=== PATIENT | male | born 1965 | race Caucasian/White ===

== ENCOUNTER → 2017-11-11 10:48 | Outpatient (CLI) | payer SELFPAY ==
--- NOTE | 2017-11-11 11:06 | MRI_ITS ---
STUDY: MRI ABDOMEN WITH AND WITHOUT CONTRAST REASON FOR EXAM: Male, 52 years old. Abnormal liver enzymes. No acute complaints otherwise. TECHNIQUE: Standardized fat and water weighted pulse sequences were obtained in all 3 orthogonal planes post contrast administration. 10 ml of Gadavist contrast material was administered intravenously for the contrast portion of the examination. COMPARISON: None. FINDINGS: Hepatomegaly, craniocaudal right liver 24 cm. Generalized severe hepatic steatosis. There is diffuse signal dropout throughout the liver on opposed phase imaging. Unremarkable gallbladder, intrahepatic biliary tree and common bile duct. The pancreas, spleen, bilateral adrenal glands, bilateral kidneys, likely systems and proximal ureters, retroperitoneum, vasculature, stomach, and evaluated portions of small and large bowel exhibit no acute abnormalities. There are a a few small nonenhancing cysts of each kidney, the largest on the right measuring 12 mm, the largest on the left measuring 7 mm. There are no abnormally enhancing lesions of the liver. Unremarkable thoracolumbar spine. MRI/MRI Abd WITH and W/O Contrast IMPRESSION: Hepatic steatosis with hepatomegaly. Electronically Signed: Wan Thorpe, at 18:30 EDT Tel , Service support ,
== END ==
PROVIDERS: Family Provider Internal Medicine; PCP Internal Medicine; Visit Provider Internal Medicine
DX: R79.89 Other specified abnormal findings of blood chemistry (principal); R88.8 Abnormal findings in other body fluids and substances
CPT/HCPCS: 74183; A9585; A4216

== ENCOUNTER 2020-06-04 14:50 | Emergency (ER) | payer BC, SELFPAY ==
[2020-06-04 14:53] VITALS: BP 171/93; PULSE 87; RESP 18; TEMP 37.2; O2SAT 99; BMI 26.7
--- NOTE | 2020-06-04 15:12 | CT_ITS ---
STUDY: CT ABDOMEN AND PELVIS WITHOUT CONTRAST REASON FOR EXAM: Male, 54 years old. LLQ PAIN SINCE SATURDAY, LLQ RADIATING TO LT FLANK, MICROSCOPIC HEMATURIA, HTN, HX-HERNADEZ RADIATION DOSAGE (If Supplied By Facility): CTDIvol = ( 9.46 ) mGy, DLP = ( 477.49 ) mGycm TECHNIQUE: Transaxial images were obtained from the dome of the diaphragm to the symphysis pubis without oral contrast, and without intravenous contrast. Sagittal and coronal images were reconstructed. Individualized dose optimization techniques were used for this CT. COMPARISON: MRI dated 11/11/2017 FINDINGS: The visualized lung bases are unremarkable. The visualized portions of the heart are within normal limits. The lack of intravenous contrast limits evaluation of solid visceral organs. There is decreased attenuation of the liver consistent with steatosis. There is hepatomegaly. There is a gallstone within the gallbladder. Normal spleen. Normal pancreas. Normal bilateral adrenal glands. There is a nonobstructing 3 mm right renal calculus. There is left hydroureteronephrosis secondary to a 3.3 mm calculus within the mid ureter. There is a nonobstructing 4 mm calculus within the upper pole of the left kidney. Normal visualized stomach. Normal small intestine. Normal colon. The appendix is visualized and appears normal. There are few peripheral calcifications of the abdominal aorta consistent with atherosclerosis. Normal inferior vena cava. Normal retroperitoneum. Normal urinary bladder. Normal abdominal wall. Normal osseous structures. CT/Abdomen/Pel W ORAL Cont Only IMPRESSION: Left hydroureteronephrosis secondary to a 3.3 mm calculus within the mid ureter. Bilateral nonobstructing renal calculi measuring up to 4 mm on the left. Fatty infiltration of the liver associated with hepatomegaly. Atherosclerosis. Cholelithiasis. Electronically Signed: Carley Schwartz MD at 18:19 EST Tel , Service support ,
--- NOTE | 2020-06-04 15:13 | ED.VIS.GEN ---
History of Present Illness Chief Complaint: Abd Pain Informant: Patient Onset: Days - 5 days Context: Gradual Onset Timing: Waxes and wanes Current Severity: Moderate Maximum Severity: Moderate Narrative: Patient presents with 5-day history of left lower quadrant abdominal pain. It does somewhat radiate into the left flank. Patient states has had poor appetite with decreased p.o. intake. He denies any prior abdominal surgeries. He has not taken anything today for pain. He denies fever but has had occasional chills. - Past Medical History (1) Diabetes Status: Chronic (2) Hypertension Status: Chronic (3) HERNADEZ (nonalcoholic steatohepatitis) Status: Chronic (4) High cholesterol Status: Chronic Past Medical History - Allergies and Home Meds Allergies/Adverse Reactions: Allergies No Known Allergies Allergy (Verified 06/04/20 14:52) Primary Care Physician: Nu Ortiz MD [Primary Care Provider] - Prior records reviewed: Yes Lives: Spouse/ Significant Other Review of Systems General: Reports: Chills. Denies: Fever Eyes: Denies: Visual changes - bilaterally ENT: Denies: Bilateral ear pain Cardiovascular: Denies: Chest pain Respiratory: Denies: Dyspnea, Cough Gastrointestinal: Reports: Abdominal pain. Denies: Vomiting, Diarrhea Genitourinary: Denies: Dysuria Musculoskeletal: Denies: Swelling, Extremity Pain Skin: Denies: Rash Neurological: Denies: Headache Hematologic: Denies: Easy bruising, Easy bleeding Allergy: Denies: Uticaria Physical Exam Vital Signs/Narrative: Vital Signs Temp Pulse Resp BP Pulse Ox 06/04/20 14:53 98.9 F 87 18 171/93 H 99 Inital Vital Signs reviewed: Yes General: Well nourished, Well developed Head: Normocephalic ENT: Moist mucous membranes Neck: Supple Cardiovascular: Regular rate, Regular rhythm Respiratory: No distress, CTA bilaterally Abdomen: Soft, Tender - Tenderness to palpation in left lower quadrant., Hypoactive bowel sounds. Negative for: Guarding, Rebound tenderness Back: Negative for: CVA tenderness Extremities: Negative for: Nontender Skin: Negative for: Normal color Neurological: Negative for: Alert, Oriented x3 Psychological: Negative for: Normal affect Diagnostic/Tx/Re-eval Impressions Abdomen CT 06/04/20 15:12 IMPRESSION: Left hydroureteronephrosis secondary to a 3.3 mm calculus within the mid ureter. Bilateral nonobstructing renal calculi measuring up to 4 mm on the left. Fatty infiltration of the liver associated with hepatomegaly. Atherosclerosis. Cholelithiasis. Electronically Signed: Carley Schwartz MD at 18:19 EST Tel , Service support , 06/04/20 15:12 Abdomen/Pel W ORAL Cont Only [CT] Stat Laboratory Results 06/04/20 06/04/20 06/04/20 15:17 15:17 15:32 WBC 8.6 RBC 5.31 Hgb 16.3 Hct 47.3 MCV 89.1 MCH 30.7 MCHC 34.5 RDW Std Deviation 38.1 RDW Coeff of Rdorigue 11.8 Plt Count 231 MPV 10.9 Immature Gran % (Auto) 0.200 Neut % (Auto) 73.3 H Lymph % (Auto) 18.2 L [place] % (Auto) 7.2 Eos % (Auto) 0.7 Baso % (Auto) 0.4 Absolute Neuts (auto) 6.3 Absolute Lymphs (auto) 1.56 Nucleated RBC % 0 Sodium 138 Potassium 3.3 L Chloride 101 Carbon Dioxide 32.0 Anion Gap 5 BUN 15 Creatinine 1.09 Estim Creat Clear Calc 80.93 Est GFR (MDRD) Af Amer 91 Est GFR (MDRD) Non-Af 75 BUN/Creatinine Ratio 13.8 Glucose 157 H Calcium 9.7 Urine Color Yellow Urine Clarity Clear Urine pH 5.0 Ur Specific [place] 1.025 Urine Protein 15 H Urine Glucose (UA) Normal Urine Ketones Negative Urine Occult Blood 250 H Urine Nitrite Negative Urine Bilirubin Negative Urine Urobilinogen Normal Ur Leukocyte Esterase Negative Urine RBC 10-25 SEEN Urine WBC 0 SEEN Ur Squamous Epith Cells 0 SEEN Urine Bacteria 0 SEEN Urine Mucus 0 SEEN - Medical Decision Making Patient was given morphine and Zofran for pain. He was given dose of Toradol once hematuria was noted on his urinalysis. CT scan with p.o. contrast only was obtained and does reveal a 3.3 mm mid left ureter stone. On repeat evaluation patient is resting comfortably and reports no pain at present time. Test results were discussed with patient as well as at bedside. He will be given prescriptions for pain medication, antiemetics, as well as Flomax for home. He is referred to Dr. Robins if not improving. He is given return instructions for worsened pain or symptoms. ED Disposition - Plan for ED Patient: Disposition: Home or Assisted Living Diagnosis: Kidney stone Instructions: ED Kidney Stone w/ Colic Prescriptions: Tamsulosin HCl [Flomax] 0.4 mg PO DAILY #7 cap Transmission Status: Pending to [facility] Hydrocodone Bitart/Apap 5-325 [[place] 5MG-325MG] 1 tablet PO Q6H PRN PRN 3 Days #10 tablet PRN Reason: Pain Transmission Status: Sent to [facility] Ketorolac [Toradol] 10 mg PO Q6H PRN #14 tab PRN Reason: Pain Score 4-10 Transmission Status: Pending to [facility] Ondansetron [Zofran Odt] 4 mg PO Q8H PRN PRN #10 tab PRN Reason: Nausea Transmission Status: Pending to [facility] Referrals: Walt Robins MD [STAFF PHYSICIAN] - 1-2 Weeks
[2020-06-04] MEDS: Morphine 4 MG/ML Syringe IV (15:35)
[2020-06-04] MEDS: Ondansetron 4 MG/2 ML Vial IV (15:36)
[2020-06-04] MEDS: 0.9% Normal Saline 1,000 ML 150 ML IV (15:36)
[2020-06-04 15:38] LABS: Bacteria 0 SEEN /hpf (None Seen); Mucous, Urine 0 SEEN /hpf (<or=2+); Squamous Epithelial Cells - UA 0 SEEN /hpf (0-5); White Blood Cells 0 SEEN /hpf (0-5)
[2020-06-04 15:40] LABS: Absolute Lymphocyte Count 1.56 X10^3/uL (0.83-4.51); Absolute Neutrophil Count 6.3 X10^3/uL (2.0-7.7); Basophil# 0.03 X10^3/uL; Basophil% 0.4 % (0-1); Eosinophil# 0.06 X10^3/uL; Eosinophils% 0.7 % (0-5); Hematocrit 47.3 % (40-54); Hemoglobin 16.3 g/dL (13.0-16.5); Lymphocyte # 1.56 X10^3/ul (4.0); Lymphocyte % 18.2 % (19-41); Mean Corp Hgb Conc 34.5 g/dL (32-36); Mean Corpuscular Hgb 30.7 pg (27.0-32.0); Mean Corpuscular Volume 89.1 fL (80-94); Mean Platelet Vol. 10.9 fl (6.2-12.0); Monocyte# 0.62 X10^3/uL; Monocyte% 7.2 % (0-10); NRBC Flagged by Analyzer 0 % (0-5); Neutrophil # 6.27 X10^3/uL (2.7-7.7); Neutrophil % 73.3 % (47-70); Platelet Count 231 K/mm3 (150-450); RBC Distribution Width CV 11.8 % (11.6-14.6); RBC Distribution Width SD 38.1 fl (35.1-43.9); Red Blood Count 5.31 M/mm3 (4.6-6.2); White Blood Count 8.6 K/mm3 (4.4-11.0)
[2020-06-04 15:43] LABS: Color, Urine Yellow (Yellow); Glucose, Dipstick Normal (Normal); Ketone-Dipstick Negative (Negative); Leukocyte Esterase-Dipstick Negative /ul (Negative); Nitrite-Dipstick Negative (Negative); Occult Blood-Urine 250 /ul (Negative); Protein-Dipstick 15 mg/dl (Negative); Specific Gravity, Urine 1.025 (1.002-1.030); Urine Bilirubin Dipstick Negative (Negative); Urine Clarity Clear (Clear); Urine Urobilinogen Normal (Normal)
[2020-06-04 15:50] LABS: Red Blood Cells-Urine 10-25 SEEN /hpf (0-5)
[2020-06-04 15:53] LABS: Anion Gap 5 (5-15); BUN 15 mg/dL (7-18); BUN/Creat Ratio 13.8 RATIO (10-20); Calcium,Total 9.7 mg/dL (8.5-10.1); Chloride 101 mmol/L (98-107); Creatinine, Serum 1.09 mg/dL (0.70-1.30); EST Glomerular Filtration Rate 75 mL/min (>60); Est Glom Filt Rate - Afr Amer 91 mL/min (>60); Estimated Creatinine Clearance 80.93 ml/min; Glucose 157 mg/dL (74-106); Potassium 3.3 mmol/L (3.5-5.1); Sodium Level 138 mmol/L (136-145)
[2020-06-04] MEDS: Ketorolac 30 MG/ML Syringe IV (16:03)
== END 2020-06-04 18:56 | disposition home or self-care (01) ==
PROVIDERS: Emergency Provider Emergency Medicine; PCP Internal Medicine
DX: N13.2 Hydronephrosis with renal and ureteral calculous obstruction (principal); K80.20 Calculus of gallbladder without cholecystitis without obstruction; I10 Essential (primary) hypertension; E11.9 Type 2 diabetes mellitus without complications; E78.00 Pure hypercholesterolemia, unspecified
CPT/HCPCS: 74176; 80048; 81001; 85025; 96361; 96374; 96375; 99283; J7030; A4216; J2405

== ENCOUNTER → 2020-06-07 12:08 | Outpatient (CLI) | payer BC, SELFPAY ==
[2020-06-04 14:53] VITALS: BMI 26.7
--- NOTE | 2020-06-07 12:15 | RAD_ITS ---
STUDY: X-RAY - ABDOMEN/PELVIS REASON FOR EXAM: Male, 54 years old. Left sided pain TECHNIQUE: Single AP view of the abdomen / pelvis. COMPARISON: None. FINDINGS: There is a moderate amount of colonic fecal material. The visualized liver, spleen and kidneys are grossly normal in size and morphology. Normal soft tissue structures. Normal visualized osseous structures. RAD/Abdomen Single View IMPRESSION: Moderate amount of fecal material is seen in the colon. Electronically Signed: Mao Yadav MD at 12:44 EST , Service support ,
== END ==
PROVIDERS: PCP Internal Medicine; Visit Provider Nurse Practitioner Adult Health
DX: N20.1 Calculus of ureter (principal)
CPT/HCPCS: 74018

== ENCOUNTER 2020-06-09 09:22 | Day surgery (SDC) | payer BC, SELFPAY ==
[2020-06-09 09:56] VITALS: BP 143/71; PULSE 74; RESP 16; TEMP 36.9; O2SAT 99; BMI 26.9
[2020-06-09] MEDS: Lactated Ringers 1,000 ML 100 ML IV (10:23)
[2020-06-09 10:31] LABS: Bedside Glucose 123 mg/dL (70-110)
[2020-06-09] MEDS: Cefazolin 2 GM in 0.9% Normal Saline 100 ML IV (11:51)
--- NOTE | 2020-06-09 12:47 | PCM.DC.URO ---
Discharge Diet: Light diet - advance as tolerated Discharge Activity: Return to Normal Activity Allergies/Adverse Reactions: Allergies acetaminophen [From Tavist] Allergy (Verified 06/07/20 15:22) Rash clemastine [From [facility]av[facility]] Allergy (Verified 06/07/20 15:22) Rash pseudoephedrine [From [facility]] Allergy (Verified 06/07/20 15:22) Rash Medications to take at Discharge Ketorolac [Toradol] 10 mg PO Q6H PRN #14 tab 06/04/20 Ondansetron [Zofran Odt] 4 mg PO Q8H PRN PRN #10 tab 06/04/20 Tamsulosin HCl [Flomax] 0.4 mg PO DAILY #7 cap 06/04/20 Benazepril/Hydrochlorothiazide [Benazepril-Hctz 10-12.5 mg Tab] 0.5 tab PO DAILY 06/07/20 Flaxseed Oil 1,000 mg PO DAILY 06/07/20 Fluticasone 0.05% [Flonase Nasal [place]] 1 spray NASAL DAILY 06/07/20 Gemfibrozil [Lopid] 600 mg PO BIDAC 06/07/20 Loratadine [Allergy Relief] 10 mg PO DAILY 06/07/20 Multivitamin 1 ea PO DAILY 06/07/20 Ciprofloxacin [Cipro] 500 mg PO BID #6 tab 06/09/20 Hydrocodone Bitart/Apap 5-325 [[place] 5MG-325MG] 1 tablet PO Q4H PRN PRN 7 Days #14 tablet 06/09/20 The following prescriptions were given: Ciprofloxacin [Cipro] 500 mg PO BID #6 tab Transmission Status: Pending to [facility] Hydrocodone Bitart/Apap 5-325 [[place] 5MG-325MG] 1 tablet PO Q4H PRN PRN 7 Days #14 tablet PRN Reason: Pain Transmission Status: Sent to [facility] Primary Care Physician: Nu Ortiz MD [Primary Care Provider] - Test Results: Test results from this visit will be discussed in further detail at your follow-up appointment, if applicable. Please Follow Up With: Walt Robins MD When: please call to make an appointment.
--- NOTE | 2020-06-09 12:48 | PCM.OPRPT ---
Report of Operation Date of Procedure: 06/09/20 Pre-Operative Diagnosis: Left mid ureteral calculi Post-Operative Diagnosis: Same Surgery/Procedure Performed:: Cystoscopy left stent placement and left extracorporeal shockwave lithotripsy Description of Surgical Findings:: Patient presents to the hospital for treatment of a kidney stone with shockwave lithotripsy. In the preoperative area and x-ray was done to confirm the location of the stone. The x-ray was reviewed and the stone location was reviewed. In the preoperative setting I spoke with the patient regarding the treatment of the stone how the treatment would be conducted and the expectations after surgery. The patient understands there is a risk of bleeding and infection. Also discussed the very rare risk of hematoma or damage to the kidney. We also discussed the risk that the shockwave machine will fail to break the stone adequately and that the patient may need other surgical procedures. We also discussed the possibility that the patient may need a stent after the procedure. After reviewing the procedure with the patient, the patient is signed the consent form all the patient's questions were addressed and was taken back to the operating room for treatment of a kidney stone. Patient was taken back to the operating room, patient was identified by the nursing staff, we identified the side of the treatment and the patient side of treatment had been marked by my initials. The patient underwent general anesthetic and was placed supine on the lithotripter table. We then used fluoroscopy to identify the stone on the Left side. The urethra and genitals were prepped and draped in usual sterile fashion. Using a 21 [place] rigid cystourethroscope the entire length of the urethra was normal then went into the bladder. Identified the trigone the left and right ureteral orifice. I then cannulated the Left orifice and advanced a wire up into the kidney. I then backloaded a 5 [place] open ended catheter over the wire and injected contrast to delineate the anatomy. After the retrograde was performed I then used fluoroscopic images and guidance to advanced a wire up into the kidney and over the 0.038 glidewire I advanced a 6 [place] by 26 cm double pigtail stent. I then pulled the 0.038 Glidewire off and the stent coiled in the kidney bladder good position. The bladder was then drained. We confirmed the position of the stent by fluoroscopy. We then positioned the patient under the lithotripter and we used triangulation technique to identify the location of the stone and then we made sure that the stone was engaged in the F2 focal point of F2 Donier lithoprior machine. Once the patient was positioned appropriately and the stone was identified and placed in the F2 focal point of the lithotripter machine we then proceeded with shockwave lithotripsy. In the beginning the shockwave was delivered at a rate of 90 shocks per minute, we monitor the EKG for any ectopy. The power was slowly increased to 5 kV and subsequently at the 7 kV. We then proceeded with the treatment we move the therapy had around during the treatment to make sure the stone stayed in the F2 focal point during the entire treatment. Once the stone had broken up completely then we stopped the treatment a total of about 3000 shockwaves were delivered to the stone under fluoroscopic guidance. At this point the patient's anesthetic was reversed patient was extubated and taken back to the PACU in stable condition. The patient was given instructions to call the office to make an a follow-up appointment. Type of Anesthesia:: General
[2020-06-09 12:52] VITALS: BP 132/64; BP 143/71; PULSE 55; RESP 18; TEMP 36.4; O2SAT 94
[2020-06-09 13:00] VITALS: BP 117/70; BP 143/71; PULSE 56; RESP 18; O2SAT 95
[2020-06-09] MEDS: Ketorolac 15 MG/ML Vial IV (13:03)
[2020-06-09 13:15] VITALS: BP 128/63; BP 143/71; PULSE 57; RESP 18; O2SAT 97
[2020-06-09 13:24] VITALS: BP 133/73; BP 143/71; PULSE 58; RESP 18; TEMP 36.2; O2SAT 97
[2020-06-09 14:11] LABS: Bedside Glucose 143 mg/dL (70-110)
[2020-06-09 14:30] VITALS: BP 139/70; BP 143/71; PULSE 64; RESP 16; TEMP 36.3; O2SAT 98
--- NOTE | 2020-06-12 11:03 | PCM.HP.STD ---
Problem List (1) Nephrolithiasis Status: Acute History of Present Illness Date of Admission: 06/09/20 Chief Complaint: Left kidney stone The patient is a 54 year old male with a stone in the proximal left ureter presents the hospital for treatment with shockwave lithotripsy and stent placement Past Medical History Past Medical History (Chronic Problems): Chronic Problems Diabetes (Chronic) Hypertension (Chronic) HERNADEZ (nonalcoholic steatohepatitis) (Chronic) High cholesterol (Chronic) Allergies acetaminophen [From Tavist] Allergy (Verified 06/07/20 15:22) Rash clemastine [From Tavist] Allergy (Verified 06/07/20 15:22) Rash pseudoephedrine [From [facility]] Allergy (Verified 06/07/20 15:22) Rash Home Medications: Ambulatory Orders Medication Instructions Recorded Ketorolac [Toradol] 10 mg PO Q6H PRN #14 tab 06/04/20 Ondansetron [Zofran Odt] 4 mg PO Q8H PRN PRN #10 tab 06/04/20 Tamsulosin HCl [Flomax] 0.4 mg PO DAILY #7 cap 06/04/20 Benazepril/Hydrochlorothiazide 0.5 tab PO DAILY 06/07/20 [Benazepril-Hctz 10-12.5 mg Tab] Flaxseed Oil 1,000 mg PO DAILY 06/07/20 Fluticasone 0.05% [Flonase Nasal 1 spray NASAL DAILY 06/07/20 [place]] Gemfibrozil [Lopid] 600 mg PO BIDAC 06/07/20 Loratadine [Allergy Relief] 10 mg PO DAILY 06/07/20 Multivitamin 1 ea PO DAILY 06/07/20 Ciprofloxacin [Cipro] 500 mg PO BID #6 tab 06/09/20 Hydrocodone Bitart/Apap 5-325 1 tab PO Q4H PRN PRN 7 Days #14 tab 06/09/20 [[place] 5MG-325MG] Surgical History: no surgical history Smoking Status: Never smoker Tobacco Use: Non-smoker Review of Systems Constitutional: Denies: Chills, Fever, Weight Change HEENT: Denies: Head Aches, Sinus Congestion, Sinus Drainage Cardiovascular: Denies: Chest Pain, Palpitations Respiratory: Denies: Cough, Shortness of breath at rest, Sputum production Gastrointestinal: Denies: Abdominal Pain, Nausea, Vomiting Genitourinary: Denies: Dysuria Musculoskeletal: Denies: Joint Pain, Joint Tenderness Skin: Denies: Rash, Wounds Neurological: Denies: Numbness, Tingling, Focal weakness Psychiatric: Denies: Anxiety, Depression, Homicidal Ideations, Suicidal Ideations Hematologic/ Lymphatic: Denies: Easy Bruising, Easy Bleeding VTE Information - Inpt Only VTE Present on Admission: No - Physical Exam Vitals/I&O's: Vital Signs Temp Pulse Resp BP Pulse Ox 97.3 F L 64 16 139/70 H 98 06/09/20 14:30 06/09/20 14:30 06/09/20 14:30 06/09/20 14:30 06/09/20 14:30 Oxygen Delivery Method Room Air Weight: 85.3 kg Body Mass Index (BMI) 26.9 General: Alert, Oriented x3, Cooperative HEENT: Atraumatic, PERRLA, EOMI, Normocephalic Neck: Supple, No JVD, Negative Carotid Bruits Lungs: Clear to auscultation, Normal air movement Cardiovascular: Regular rate, No murmurs Abdomen: Bowel Sounds Present, Soft, Non Tender Extremities: No edema, Capillary Refill Less than 3 Seconds Skin: No rashes, No breakdown Musculoskeletal: No Tenderness to Palpation of Joints or Extremities Neurological: Cranial nerves II-XII grossly intact Psych/Mental Status: Normal Affect, Appropriate Assessment/Plan All Active Problems Nephrolithiasis (Acute) Plan to proceed with shockwave lithotripsy and stent placement.
== END 2020-06-09 14:48 | disposition home or self-care (01) ==
LOC: SDC 09:25 → AC 09:25
PROVIDERS: PCP Internal Medicine; Referring Provider Urology; Visit Provider Urology
PROC: (CPT 50590; principal; 2020-06-09 11:20)
DX: N20.1 Calculus of ureter (principal); I10 Essential (primary) hypertension; E11.9 Type 2 diabetes mellitus without complications; E78.00 Pure hypercholesterolemia, unspecified; Z79.899 Other long term (current) drug therapy; Z20.822 Contact with and (suspected) exposure to COVID-19
CPT/HCPCS: 00873; 50590; 52332; 82962; 87426; C9803; J7120; C1769; C2617; J2405

== ENCOUNTER → 2020-06-13 13:03 | Outpatient (CLI) | payer BC, SELFPAY ==
[2020-06-09 09:56] VITALS: BMI 26.9
--- NOTE | 2020-06-13 13:10 | RAD_ITS ---
STUDY: X-RAY - ABDOMEN/PELVIS REASON FOR EXAM: Male, 54 years old. Calculus of kidney, stent, pain TECHNIQUE: Single AP view of the abdomen / pelvis. COMPARISON: Comparison is made with prior study dated 06/07/2011. FINDINGS: There is a moderate amount of colonic fecal material. A left-sided double-J stent catheter is seen with the proximal tip in the upper pole calyx of left kidney and the distal tip in the left side of the bladder. Tiny calculus is seen in the lower pole calyx of the left kidney. Normal soft tissue structures. Normal visualized osseous structures. RAD/Abdomen Single View IMPRESSION: A left-sided double-J stent catheter is seen. Punctate calculus in the lower pole calyx of the left kidney. Electronically Signed: aMo Yadav MD at 15:46 EST , Service support ,
== END ==
PROVIDERS: PCP Internal Medicine; Referring Provider Urology; Visit Provider Urology
DX: N20.0 Calculus of kidney (principal)
CPT/HCPCS: 74018

== ENCOUNTER 2022-10-18 13:53 | Inpatient (IN) | payer BC, SELFPAY ==
[2022-10-18 13:54] VITALS: BP 141/71; PULSE 92; RESP 16; TEMP 36.4; O2SAT 98; BMI 27.6
--- NOTE | 2022-10-18 14:21 | CT_ITS ---
STUDY: CT ABDOMEN AND PELVIS WITH CONTRAST REASON FOR EXAM: Male, 56 years old. upper abd pain RADIATION DOSAGE (If Supplied By Facility): CTDIvol = ( 12.68 ) mGy, DLP = ( 968.37 ) mGycm TECHNIQUE: Transaxial images were obtained from the dome of the diaphragm to the symphysis pubis without oral contrast. IV 100mL [id number] was administered. Sagittal and coronal images were reconstructed. The Individualized dose optimization techniques were used for this CT. COMPARISON: 06/04/2020. FINDINGS: The visualized lung bases are unremarkable. The visualized portions of the heart are within normal limits. There is decreased attenuation of the liver consistent with steatosis. There is hepatomegaly. Distended gallbladder with a thickened wall, mild pericholecystic edema, and probable cholelithiasis. Normal spleen. Normal pancreas. Normal bilateral adrenal glands. There are no acute abnormalities of the kidneys. There is a 4 mm nonobstructing stone of the right upper pole. There is a 2 mm nonobstructing stone of the right lower pole. There is a 3 mm nonobstructing left mid renal stone. There is a 2 mm nonobstructing left upper pole stone. There are numerous small simple cysts, stable. Evaluation of the GI tract is limited by absence of oral contrast. Cannot exclude stomach wall thickening. No dilated loops of bowel or evidence for obstruction. Cannot exclude segmental thickening of the león of the small or large bowel. Cannot exclude enteritis or colitis. Moderate diffuse fecal retention. Appendix within normal limits. Normal abdominal aorta. Normal inferior vena cava. Normal retroperitoneum. Normal urinary bladder. There is enlargement of the prostate gland. Normal abdominal wall. Normal osseous structures. CT/Abdomen/Pelvis W IV Cont ONLY IMPRESSION: Abnormal appearance of the gallbladder. Possible cholelithiasis and cholecystitis. Multiple bilateral nonobstructing renal stones. Prominent fatty liver and hepatomegaly. Electronically Signed: Josiah Flores MD at 16:18 EDT ,
--- NOTE | 2022-10-18 14:23 | EDS_ITS ---
HPI <Dr. Noe Barbour DO - Last Filed: 10/19/22 07:26> HPI - GI History of Present Illness Chief Complaint: Abd Pain Informant: patient and spouse/S.O. Narrative Narrative: Presents here with spouse intermittent pain across his upper abdomen since Saturday. No nausea or vomiting. States today had 2 loose stools that was slight saldaña to brown in color. No fevers. No urinary symptoms. No abdominal surgeries. No history of colonoscopies however Cologuard last year was negative. History of kidney stones last time 2 years ago. Urine was dark this morning however is cleared up. States being followed by PCP for fatty liver with enlargement. History hypertension prediabetes. Denies any alcohol history. Denies any abdominal surgeries in the past. Pain was up to 7 earlier today but down to 1 currently. Prior similar symptoms: No PFSH <Dr. Noe Barbour, - Last Filed: 10/19/22 07:26> PFSH Medical History (Updated 10/18/22 @ 22:36 by Roxanne Torres) Acute gallstone pancreatitis Diabetes High cholesterol Hypertension Obstructive sleep apnea Home Medications ketorolac 10 mg tablet 10 mg PO Q6H PRN Pain Score 4-10 #14 tabs 06/04/20 [Rx Last Taken Unknown] ondansetron 4 mg disintegrating tablet 4 mg PO Q8H PRN PRN Nausea #10 tabs 06/04/20 [Rx Last Taken Unknown] tamsulosin 0.4 mg capsule 0.4 mg PO DAILY #7 caps 06/04/20 [Rx Last Taken Unknown] benazepril 10 mg-hydrochlorothiazide 12.5 mg tablet 0.5 tab PO DAILY 06/07/20 [H istory Last Taken Unknown] flaxseed oil 1,000 mg capsule 1,000 mg PO DAILY 06/07/20 [History Last Taken Unknown] fluticasone propionate 50 mcg/actuation nasal spray,suspension 1 spray NASAL DAILY 06/07/20 [History Last Taken Unknown] gemfibrozil 600 mg tablet 600 mg PO BIDAC 06/07/20 [History Last Taken Unknown] loratadine 10 mg tablet 10 mg PO DAILY 06/07/20 [History Last Taken Unknown] multivitamin 1 ea PO DAILY 06/07/20 [History Last Taken Unknown] ciprofloxacin HCl 500 mg tablet 500 mg PO BID #6 tabs 06/09/20 [Rx Last Taken Unknown] omega 8-hts-waj-fish oil 1,200 mg (144 mg-216 mg) capsule (Fish Oil) cap PO general health 10/18/22 [History Last Taken 10/18/22] Allergy/AdvReac Type Severity Reaction Status Date / Time clemastine [From Tavist] Allergy Rash Verified 06/07/20 15:22 pseudoephedrine [From Tavist] Allergy Rash Verified 06/07/20 15:22 Social History Smoking Status: Never smoker ROS <Dr. Noe Barbour DO - Last Filed: 10/19/22 07:26> ROS ED Constitutional Constitutional ED: Denies chills, fever(s) or sweats Eyes Eyes: Denies change in vision ENT ENT ED: Denies dysphagia or sore throat Cardiovascular Cardiovascular: Denies chest pain, leg edema, palpitations or racing heartbeat Respiratory/Chest Respiratory/Chest: Denies cough, dyspnea or dyspnea on exertion Gastrointestinal Gastrointestinal: Reports abdominal pain; Denies diarrhea, nausea or vomiting Genitourinary Genitourinary ED: Denies dysuria, hematuria or urinary frequency Musculoskeletal Musculoskeletal: Denies back pain, extremity pain or neck pain Integumentary Denies rash or wounds Neurologic Neurologic: Denies headache(s), paresthesias or weakness EXAM <Dr. Noe Barbour DO - Last Filed: 10/19/22 07:26> Physical Exam Const Vital Signs: 10/18/22 13:54 10/18/22 18:00 Temperature 97.6 F L Temperature Source Temporal Pulse Rate 92 81 Respiratory Rate 16 14 Blood Pressure 141/71 H 143/76 H Blood Pressure Mean 94 98 Pulse Ox 98 97 Oxygen Delivery Method Room Air Room Air Positive well nourished and well developed General Appearance ED: well developed and NAD HEENT Reports moist mucous membranes normocephalic and atraumatic Eyes PERRL, EOMs intact bilaterally and conjunctivae normal General Eye ED: Yes normal appearance of both eyes; Negative for scleral icterus Neck no lymphadenopathy and supple General: Negative for tenderness Chest Wall Chest: Negative for tenderness Resp normal respiratory effort and normal air movement Effort and Inspection: symmetric chest movement; Negative for respiratory distress Cardio regular rate, regular rhythm and no murmurs Peripheral Pulses: pulses 2+ throughout GI normal to inspection, nondistended, normoactive bowel sounds GI Narrative: Mild pain across upper abdomen. Negative Gonzales's or McBurney's tenderness. Palpation: Negative for guarding or rebound tenderness present Back/Spine no CVA tenderness and no thoracic nor lumbar tenderness Extremity normal to inspection General Extremety ED: Negative for edema or tenderness General Extremity: Negative for edema Neuro oriented x3 and no sensory deficits noted Sensorium / Orientation: awake and alert Skin no rashes or lesions noted and no wounds <Dr. Cristobal Garibay, DO - Last Filed: 10/18/22 18:42> Physical Exam Const Vital Signs: 10/18/22 13:54 10/18/22 18:00 Temperature 97.6 F L Temperature Source Temporal Pulse Rate 92 81 Respiratory Rate 16 14 Blood Pressure 141/71 H 143/76 H Blood Pressure Mean 94 98 Pulse Ox 98 97 Oxygen Delivery Method Room Air Room Air MDM <Dr. Noe Barbour, DO - Last Filed: 10/19/22 07:26> MDM MDM Narrative Medical decision making narrative: Interventions / MDM: Differential diagnosis: Colitis, pancreatitis, cholecystitis, pancreatic cancer, choledocholithiasis Diagnosis considered but do not suspect: N/A My EKG interpretation: N/A Imaging independently reviewed and interpreted by myself: CT abdomen pelvis: Per radiology abnormal daughter questionable cholelithiasis questionable cholecystitis. Right upper quadrant ultrasound: Pending External documents reviewed: N/A Test considered but not ordered:N/A ED course: Patient vague pain upper abdomen comes and goes. Reporting slight saldaña-colored stool today. He had no jaundice on exam. Nonsurgical exam. However with his saldaña color schools, work-up was initiated with CT scan to rule out any potential cancers. Abdominal labs were obtained. IV fluids started. Labs White count of 12, creatinine 0.99. Lipase was 1548. Slight elevated live r enzymes AST 67 ALT 63 direct bili 1.07 total bili 2.9. Urine negative. CT scan no masses, reported abnormal gallbladder potential gallstone potential cholecystitis. No guarding in the right upper quadrant. Ultrasound gallbladder will be obtained for further evaluation. Re-evaluation: stable, patient and spouse updated on results. Disposition discussed with patient/family/significant other: Patient and spouse Case discussed with consulting clinician: N/A This note was generated with Dragon dictation software. It may contain incorrect words, spelling, and punctuation that were not noted in checking the note before signing. Lab Data Labs: Laboratory Results - last 24 hr 10/18/22 10/18/22 14:30 16:03 WBC 12.0 H RBC 5.05 Hgb 15.7 Hct 44.2 MCV 87.5 MCH 31.1 MCHC 35.5 RDW Std Deviation 37.2 RDW Coeff of Rodrigue 11.8 Plt Count 207 MPV 10.9 Immature Gran % (Auto) 0.300 Neut % (Auto) 83.9 H Lymph % (Auto) 8.2 L [place] % (Auto) 6.5 Eos % (Auto) 0.8 Baso % (Auto) 0.3 Absolute Neuts (auto) 10.1 H Absolute Lymphs (auto) 0.98 Nucleated RBC % 0 Sodium 137 Potassium 4.4 Chloride 102 Carbon Dioxide 29.0 Anion Gap 6 BUN 16 Creatinine 0.99 Estim Creat Clear Calc 87.05 Est GFR (MDRD) Af Amer 101 Est GFR (MDRD) Non-Af 84 BUN/Creatinine Ratio 16.2 Glucose 238 H Calcium 9.2 Total Bilirubin 2.90 H Direct Bilirubin 1.07 H AST 67 H ALT 63 H Alkaline Phosphatase 72 Total Protein 7.5 Albumin 3.9 Globulin 3.6 Lipase 1548 H Urine Color Yellow Urine Clarity Clear Urine pH 5.0 Ur Specific [place] 1.015 Urine Protein Negative Urine Glucose (UA) Normal Urine Ketones Negative Urine Occult Blood 25 H Urine Nitrite Negative Urine Bilirubin Negative Urine Urobilinogen Normal Ur Leukocyte Esterase Negative Urine RBC 0 SEEN Urine WBC 0 SEEN Ur Squamous Epith Cells 0 SEEN Urine Bacteria 0 SEEN Urine Mucus 0 SEEN Radiography Diagnostic Testing: Clinical Impression(s) from Imaging Studies Abdomen/Pelvis CT 10/18/22 14:21 IMPRESSION: Abnormal appearance of the gallbladder. Possible cholelithiasis and cholecystitis. Multiple bilateral nonobstructing renal stones. Prominent fatty liver and hepatomegaly. Electronically Signed: Josiah Flores MD at 16:18 EDT , Gallbladder Ultrasound 10/18/22 16:14 IMPRESSION: Limited as above. Distended gallbladder with a thickened wall, gallstones, and sludge. Dilated common bile duct. Electronically Signed: Josiah Flores MD at 17:39 EDT , <Dr. Cristobal Garibay, DO - Last Filed: 10/18/22 18:42> [facility] Lab Data Labs: Laboratory Results - last 24 hr 10/18/22 10/18/22 14:30 16:03 WBC 12.0 H RBC 5.05 Hgb 15.7 Hct 44.2 MCV 87.5 MCH 31.1 MCHC 35.5 RDW Std Deviation 37.2 RDW Coeff of [place] 11.8 Plt Count 207 MPV 10.9 Immature Gran % (Auto) 0.300 Neut % (Auto) 83.9 H Lymph % (Auto) 8.2 L [place] % (Auto) 6.5 Eos % (Auto) 0.8 Baso % (Auto) 0.3 Absolute Neuts (auto) 10.1 H Absolute Lymphs (auto) 0.98 Nucleated RBC % 0 Sodium 137 Potassium 4.4 Chloride 102 Carbon Dioxide 29.0 Anion Gap 6 BUN 16 Creatinine 0.99 Estim Creat Clear Calc 87.05 Est GFR (MDRD) Af Amer 101 Est GFR (MDRD) Non-Af 84 BUN/Creatinine Ratio 16.2 Glucose 238 H Calcium 9.2 Total Bilirubin 2.90 H Direct Bilirubin 1.07 H AST 67 H ALT 63 H Alkaline Phosphatase 72 Total Protein 7.5 Albumin 3.9 Globulin 3.6 Lipase 1548 H Urine Color Yellow Urine Clarity Clear Urine pH 5.0 Ur Specific [place] 1.015 Urine Protein Negative Urine Glucose (UA) Normal Urine Ketones Negative Urine Occult Blood 25 H Urine Nitrite Negative Urine Bilirubin Negative Urine Urobilinogen Normal Ur Leukocyte Esterase Negative Urine RBC 0 SEEN Urine WBC 0 SEEN Ur Squamous Epith Cells 0 SEEN Urine Bacteria 0 SEEN Urine Mucus 0 SEEN Radiography Diagnostic Testing: Clinical Impression(s) from Imaging Studies Abdomen/Pelvis CT 10/18/22 14:21 IMPRESSION: Abnormal appearance of the gallbladder. Possible cholelithiasis and cholecystitis. Multiple bilateral nonobstructing renal stones. Prominent fatty liver and hepatomegaly. Electronically Signed: Josiah Flores MD at 16:18 EDT , Gallbladder Ultrasound 10/18/22 16:14 IMPRESSION: Limited as above. Distended gallbladder with a thickened wall, gallstones, and sludge. Dilated common bile duct. Electronically Signed: Josiah Flores MD at 17:39 EDT , Treatment and Re-Evaluation :: Care of the patient was turned over to me pending ultrasound results. Right upper quadrant ultrasound was obtained. There is a distended gallbladder with thickened wall, gallstones, and sludge. There is dilated common bile duct. There is no evidence of choledocholithiasis. This was interpreted by the radiologist and was also independently reviewed by myself. Case was discussed with Dr. Rubalcava from general surgery. He will be in to evaluate the patient. He recommended starting the patient on Zosyn. He will likely admit the patient to the hospital. Dr. Rubalcava evaluated the patient in the emergency department. He will admit the patient to his service. Patient and family understand and are agreeable with the plan. All questions were answered. Discharge Plan Dx/Rx/DC Orders Clinical Impression: Transaminitis, Abdominal pain, Acute pancreatitis, Acute cholecystitis Disposition Disposition: Acute Care Hospital [facility] Discharge Date/Time: 10/18/22 19:38
[2022-10-18 14:37] LABS: Absolute Lymphocyte Count 0.98 X10^3/uL (0.83-4.51); Absolute Neutrophil Count 10.1 X10^3/uL (2.0-7.7); Basophil# 0.04 X10^3/uL; Basophil% 0.3 % (0-1); Eosinophil# 0.09 X10^3/uL; Eosinophils% 0.8 % (0-5); Hematocrit 44.2 % (40-54); Hemoglobin 15.7 g/dL (13.0-16.5); Lymphocyte # 0.98 X10^3/ul (0.83-4.51); Lymphocyte % 8.2 % (19-41); Mean Corp Hgb Conc 35.5 g/dL (32-36); Mean Corpuscular Hgb 31.1 pg (27.0-32.0); Mean Corpuscular Volume 87.5 fL (80-94); Mean Platelet Vol. 10.9 fl (6.2-12.0); Monocyte# 0.78 X10^3/uL; Monocyte% 6.5 % (0-10); NRBC Flagged by Analyzer 0 % (0-5); Neutrophil # 10.05 X10^3/uL (2.7-7.7); Neutrophil % 83.9 % (47-70); Platelet Count 207 K/mm3 (150-450); RBC Distribution Width CV 11.8 % (11.6-14.6); RBC Distribution Width SD 37.2 fl (35.1-43.9); Red Blood Count 5.05 M/mm3 (4.6-6.2)
[2022-10-18] MEDS: 0.9% Normal Saline 1,000 ML 125 ML IV ×2 (14:40→20:30)
[2022-10-18 15:24] LABS: AST(SGOT) 67 U/L (15-37); Alanine Aminotransfer ALT/SGPT 63 U/L (16-61); Albumin, Serum 3.9 g/dL (3.2-5.0); Alkaline Phosphatase 72 U/L (45-117); Anion Gap 6 (5-15); BUN 16 mg/dL (7-18); BUN/Creat Ratio 16.2 RATIO (10-20); Bilirubin, Direct 1.07 mg/dL (0.00-0.30); Calcium,Total 9.2 mg/dL (8.5-10.1); Chloride 102 mmol/L (98-107); Creatinine, Serum 0.99 mg/dL (0.70-1.30); EST Glomerular Filtration Rate 84 mL/min (>60); Est Glom Filt Rate - Afr Amer 101 mL/min (>60); Estimated Creatinine Clearance 87.05 ml/min; Globulin 3.6 g/dL (2.2-4.2); Glucose 238 mg/dL (74-106); Lipase 1548 U/L (13-75); Potassium 4.4 mmol/L (3.5-5.1); Protein, Total 7.5 g/dL (6.4-8.2); Sodium Level 137 mmol/L (136-145)
--- NOTE | 2022-10-18 16:14 | US_ITS ---
STUDY: ABDOMINAL ULTRASOUND - RIGHT UPPER QUADRANT REASON FOR VISIT: Male, 56 years old pancreatitis, elevated lft TECHNIQUE: Ultrasound evaluation of the right upper quadrant was performed with real-time and static saldaña-scale imaging. TECHNICAL QUALITY: Limited. Examination limited due to a combination of factors including obesity and bowel gas. COMPARISON: CT scan of the same date. FINDINGS: Liver: The liver measures 21 cm. There is increased echogenicity consistent with fatty infiltration. The bile ducts are within normal limits. There is hepatic color flow. The direction of portal flow is hepatopetal. There is no demonstrated mass lesion. Gallbladder: There is a markedly distended gallbladder. The gallbladder wall measures 4 mm. There is a negative sonographic Gonzales''s sign. There is pericholecystic fluid. There are multiple echogenic structures within the gallbladder, consistent with multiple gallstones. There is sludge. Common Bile Duct (C.B.D.): The common bile duct measures 8 mm. Pancreas: There is nonvisualization of the pancreas. Right Kidney: Normal size of the right kidney. The right kidney measures 10.1 cm. Normal renal cortex. The right cortex measures 1.7 cm. There is no demonstrated renal mass or cyst. There is no right hydronephrosis. US/Gallbladder IMPRESSION: Limited as above. Distended gallbladder with a thickened wall, gallstones, and sludge. Dilated common bile duct. Electronically Signed: Josiah Flores MD at 17:39 EDT ,
[2022-10-18 16:20] LABS: Bacteria 0 SEEN /hpf (None Seen); Mucous, Urine 0 SEEN /hpf (<or=2+); Red Blood Cells-Urine 0 SEEN /hpf (0-5); Squamous Epithelial Cells - UA 0 SEEN /hpf (0-5); White Blood Cells 0 SEEN /hpf (0-5)
[2022-10-18 16:33] LABS: Color, Urine Yellow (Yellow); Glucose, Dipstick Normal (Normal); Ketone-Dipstick Negative (Negative); Leukocyte Esterase-Dipstick Negative /ul (Negative); Nitrite-Dipstick Negative (Negative); Occult Blood-Urine 25 /ul (Negative); Protein-Dipstick Negative (Negative); Specific Gravity, Urine 1.015 (1.002-1.030); Urine Bilirubin Dipstick Negative (Negative); Urine Clarity Clear (Clear); Urine Urobilinogen Normal (Normal)
[2022-10-18 18:00] VITALS: BP 143/76; PULSE 81; RESP 14; O2SAT 97
--- NOTE | 2022-10-18 19:04 | HP.PCM_ITS ---
HPI - General General Date of Admission: 10/18/22 Date of Service: 10/18/22 Chief Complaint: Acute onset abdominal pain HPI Narrative NELLI MORA, is a 56 M who presents to [facility] ER in the company of his spouse with complaints of acute onset abdominal pain. Patient reportedly told his that he had some abdominal discomfort 3 days ago, but 2 days ago experienced spontaneous remission before relapsing with the pain again yesterday. He estimates that the pain persisted for at least 8 hours yesterday and he was able to eat and reports a lunch of ham salad and chips and a dinner of Bangl[place]hi beef burrito. He denies any associated nausea with his discomfort. He reports a shifting distribution of his discomfort and initially suggest that this is large bowel that is hurting while gesturing to his upper abdomen. Mr. Barber underwent CT of the abdomen and pelvis after standard laboratories which showed elevated lipase, cholestatic pattern to liver function testing with comprehensive metabolic panel, and mild leukocytosis with left shift. CT imaging demonstrated evidence of a markedly distended gallbladder with pericholecystic fluid and gallbladder wall thickening. Reflex right upper quadrant ultrasound demonstrated further evidence of acute cholecystitis with a thickened gallbladder wall 4 mm and pericholecystic fluid noted with CT exam. Additionally, radiology documented a dilated common bile duct measuring 8 mm in diameter. Mr. Barber has a past medical history significant for well-controlled hypertension, hyperlipidemia, Nicole, and type 2 diabetes (but reports that he has not been started on medication for this latter diagnosis). Surgically?speaking he has a history of kidney stones requiring lithotripsy with urology and a remote history of pilonidal cystectomy. COUNTS INCLUDE 234 BEDS AT THE [facility] Home Medications ketorolac 10 mg tablet 10 mg PO Q6H PRN Pain Score 4-10 #14 tabs 06/04/20 [Rx Last Taken Unknown] ondansetron 4 mg disintegrating tablet 4 mg PO Q8H PRN PRN Nausea #10 tabs 06/04/20 [Rx Last Taken Unknown] tamsulosin 0.4 mg capsule 0.4 mg PO DAILY #7 caps 06/04/20 [Rx Last Taken Unknown] benazepril 10 mg-hydrochlorothiazide 12.5 mg tablet 0.5 tab PO DAILY 06/07/20 [History Last Taken Unknown] flaxseed oil 1,000 mg capsule 1,000 mg PO DAILY 06/07/20 [History Last Taken Unknown] fluticasone propionate 50 mcg/actuation nasal spray,suspension 1 spray NASAL DAILY 06/07/20 [History Last Taken Unknown] gemfibrozil 600 mg tablet 600 mg PO BIDAC 06/07/20 [History Last Taken Unknown] loratadine 10 mg tablet 10 mg PO DAILY 06/07/20 [History Last Taken Unknown] multivitamin 1 ea PO DAILY 06/07/20 [History Last Taken Unknown] ciprofloxacin HCl 500 mg tablet 500 mg PO BID #6 tabs 06/09/20 [Rx Last Taken Unknown] omega 5-vck-dtw-fish oil 1,200 mg (144 mg-216 mg) capsule (Fish Oil) cap PO 10/18/22 [History Last Taken Unknown] Allergy/AdvReac Type Severity Reaction Status Date / Time clemastine [From Tavist] Allergy Rash Verified 06/07/20 15:22 pseudoephedrine [From Tavist] Allergy Rash Verified 06/07/20 15:22 Social History Smoking Status: Never smoker ROS Constitutional Constitutional: Denies anorexia or change in weight Gastrointestinal Gastrointestinal: Reports abdominal pain and other Details: [place]-colored stools ; Denies nausea or vomiting Vital Signs Vital Signs Vital Signs: 10/18/22 13:54 10/18/22 18:00 Temperature 97.6 F L Temperature Source Temporal Pulse Rate 92 81 Respiratory Rate 16 14 Blood Pressure 141/71 H 143/76 H Blood Pressure Mean 94 98 Pulse Ox 98 97 Oxygen Delivery Method Room Air Room Air Weight Weight: 192 lb 1.6 oz Body Mass Index (BMI) 27.6 Physical Exam Const alert, oriented x3 and no apparent distress General Appearance: cooperative Resp normal respiratory effort GI GI Narrative: Hirsute, no visible scars, nondistended, soft, tender to palpation in the epigastrium and right upper quadrant with positive Gonzales sign Results Lab / Micro Data 10/18/22 14:30 10/18/22 14:30 Labs: Laboratory Results - last 24 hr 10/18/22 14:30: WBC 12.0 H, RBC 5.05, Hgb 15.7, Hct 44.2, MCV 87.5, MCH 31.1, MCHC 35.5, RDW Std Deviation 37.2, RDW Coeff of Rodrigue 11.8, Plt Count 207, MPV 10.9, Immature Gran % (Auto) 0.300, Neut % (Auto) 83.9 H, Lymph % (Auto) 8.2 L, [place] % (Auto) 6.5, Eos % (Auto) 0.8, Baso % (Auto) 0.3, Absolute Neuts (auto) 10.1 H, Absolute Lymphs (auto) 0.98, Nucleated RBC % 0, Sodium 137, Potassium 4.4, Chloride 102, Carbon Dioxide 29.0, Anion Gap 6, BUN 16, Creatinine 0.99, Estim Creat Clear Calc 87.05, Est GFR (MDRD) Af Amer 101, Est GFR (MDRD) Non-Af 84, BUN/Creatinine Ratio 16.2, Glucose 238 H, Calcium 9.2, Total Bilirubin 2.90 H, Direct Bilirubin 1.07 H, AST 67 H, ALT 63 H, Alkaline Phosphatase 72, Total Protein 7.5, Albumin 3.9, Globulin 3.6, Lipase 1548 H 10/18/22 16:03: Urine Color Yellow, Urine Clarity Clear, Urine pH 5.0, Ur Specific [place] 1.015, Urine Protein Negative, Urine Glucose (UA) Normal, Urine Ketones Negative, Urine Occult Blood 25 H, Urine Nitrite Negative, Urine Bilirubin Negative, Urine Urobilinogen Normal, Ur Leukocyte Esterase Negative, Urine RBC 0 SEEN, Urine WBC 0 SEEN, Ur Squamous Epith Cells 0 SEEN, Urine Bacteria 0 SEEN, Urine Mucus 0 SEEN Radiology Impression Abdomen/Pelvis CT 10/18/22 14:21 IMPRESSION: Abnormal appearance of the gallbladder. Possible cholelithiasis and cholecystitis. Multiple bilateral nonobstructing renal stones. Prominent fatty liver and hepatomegaly. Electronically Signed: Josiah Flores MD at 16:18 EDT , Gallbladder Ultrasound 10/18/22 16:14 IMPRESSION: Limited as above. Distended gallbladder with a thickened wall, gallstones, and sludge. Dilated common bile duct. Electronically Signed: Josiah Flores MD at 17:39 EDT , Assessment & Plan Assessment/Plan (1) Acute cholecystitis: PLAN: This is a 56-year-old male with past medical history enumerated in the HPI above who presents with signs and symptoms of acute cholecystitis and gallstone pancreatitis. He describes symptoms for the past 3 days that have been progressive. However, he reports improvement in his discomfort currently and denies any requirement for pain medication during his emergency department evaluation. His exam is consistent with the above diagnoses given tenderness in both the right upper quadrant and epigastrium. I have discussed these diagnoses and their pathophysiology (by request) at some length with both patient and his spouse. I have thus recommended trending his abdominal exam, following up his laboratories, but ultimately planning for laparoscopic cholecystectomy with intraoperative cholangiogram. I have shared with him the details of this operation as well as its attendant risks and benefits. I have also shared with him that he would require a follow-up ERCP should his cholangiography find evidence of choledocholithiasis. He is understanding of this information. For now we will plan to admit for IV antibiotic therapy with plans to follow-up: Neuro: As needed Dilaudid Pulm/CV: No current issues, monitor patient's vitals and arrange for as needed's in the event of significant hypertension FEN/GI: Trend electrolytes with daily CMP, clear liquid diet this evening then n.p.o. at midnight, trend lipase : No current issues Heme/ID: Trend CBC and initiate empiric Zosyn therapy given cholecystitis and possible choledocholithiasis Endo: We will monitor blood sugars with labs but given that patient is not already started on treatment for his diabetes will not plan for sliding scale unless it is noted to be significantly elevated Proph: SCDs Dispo: Inpatient (2) Acute gallstone pancreatitis: PLAN: Trend lipase and CMP. Will have to wait some improvement of his epigastric discomfort before proceeding to the operating room for gallbladder removal. (3) Common bile duct dilatation: PLAN: Patient with mildly dilated common bile duct and evidence of both acute cholecystitis and acute pancreatitis. This suggest possibility of choledoch olithiasis. To be further evaluated with intraoperative cholangiography during cholecystectomy. We will trend patient's CMP Charges/Coding Visit Charges Inpatient E&M: 43921 Init Hosp L2
[2022-10-18 19:14] VITALS: BP 137/78; PULSE 78; RESP 17; TEMP 36.4; O2SAT 98
[2022-10-18 19:55] VITALS: BMI 27.0
[2022-10-18] MEDS: HYDROmorphone 0.5 MG/0.5 ML SYRINGE IV (20:30)
[2022-10-19] VITALS (15 sets, daily range): BP systolic 146–196; BP diastolic 63–88; PULSE 77–102; RESP 16–20; TEMP 36.3–36.9; O2SAT 95–100
--- NOTE | 2022-10-19 | GALL_PTH ---
PATIENT: NELLI MORA LOC: MS3 U#:[id number] AGE/SX: 56/M ROOM: [facility] [place]10/18/[address]: Dr. Darrius Rubalcava MD : 1965 BED: 1 DIS: 10/23/2022 SPEC #: [id number] RECD: 10/22/22 12:48 STATUS: SARAI REBeatrice #: [id number] ASHLEY: 10/19/22 00:[address]: Darrius Rubalcava DEPT: SURGICAL PATHOLOGY RECD BY: Hipolito Reese ENTERED: 10/22/22 12:48 SP TYPE: MAGALY SOTO DR: MD Dr. Nu Berumen MD Tissues: Gallbladder, NOS Procedures: Surgery Specimen Level III HEADER OPERATION: Laparoscopic cholecystectomy with IOC PRE-OP DIAGNOSIS: Acute cholecystitis with pancreatitis TISSUE SUBMITTED: Gallbladder MICROSCOPIC DIAGNOSIS Gallbladder, cholecystectomy: Cholesterolosis and chronic cholecystitis. AM:karan 10/24/2022 MICROSCOPIC DESCRIPTION Slides are reviewed. GROSS DESCRIPTION Received is one container labeled with the patient's name and designated gallbladder. The specimen consists of a gallbladder measuring 10.0 cm in length and up to 4.0 cm in diameter. The external surface is pink-zamora, smooth and glistening for the most part. Focally it is granular, hemorrhagic and contains cautery artifact. The gallbladder contains green-yellow mucoid bile and sludge material. No stones are identified in the container or in the gallbladder. The mucosa also shows several yellowish streaks consistent with cholesterolosis. The mucosa is bile-stained and without any mass lesions. The gallbladder wall measures up to 0.4 cm in thickness. Rabbit Dresser sections from the gallbladder and the cystic duct are submitted in one cassette. / SJ:karan 10/22/2022 TC:3 CPT: 19480
[2022-10-19] MEDS: HYDROmorphone 0.5 MG/0.5 ML SYRINGE IV ×4 (00:02→09:51)
[2022-10-19] MEDS: 0.9% Normal Saline 1,000 ML 125 ML IV (03:12)
[2022-10-19] MEDS: HYDROmorphone 1 MG/ML Syringe IV (03:36)
--- NOTE | 2022-10-19 05:55 | EKG12_ITS ---
Test Reason : PRE OP Blood Pressure : / mmHG Vent. Rate : 066 BPM Atrial Rate : 066 BPM P-R Int : 174 ms QRS Dur : 088 ms QT Int : 418 ms P-R-T Axes : 033 -09 012 degrees QTc Int : 438 ms Normal sinus rhythm Normal ECG No previous ECGs available Confirmed by TAMRA HOUSE, TANG ([id number]), assistant editor CHARLINE LIMA ([id number]) on 10/22/2022 12:59:50 PM Referred By: CHAPO Confirmed By:TANG BARBOZA MD
[2022-10-19 06:12] LABS: Absolute Lymphocyte Count 0.38 X10^3/uL (0.83-4.51); Absolute Neutrophil Count 10.7 X10^3/uL (2.0-7.7); Basophil# 0.02 X10^3/uL; Basophil% 0.2 % (0-1); Hematocrit 45.7 % (40-54); Hemoglobin 16.4 g/dL (13.0-16.5); Lymphocyte # 0.38 X10^3/ul (0.83-4.51); Lymphocyte % 3.3 % (19-41); Mean Corp Hgb Conc 35.9 g/dL (32-36); Mean Corpuscular Volume 89.3 fL (80-94); Mean Platelet Vol. 11.2 fl (6.2-12.0); Monocyte# 0.48 X10^3/uL; Monocyte% 4.1 % (0-10); NRBC Flagged by Analyzer 0 % (0-5); Neutrophil # 10.69 X10^3/uL (2.7-7.7); POSITIVE DIFFERENTIAL YES; Platelet Count 190 K/mm3 (150-450); RBC Distribution Width CV 11.9 % (11.6-14.6); RBC Distribution Width SD 38.3 fl (35.1-43.9); Red Blood Count 5.12 M/mm3 (4.6-6.2); White Blood Count 11.6 K/mm3 (4.4-11.0)
[2022-10-19 06:16] LABS: Differential Indicated SCAN CRITERIA MET
[2022-10-19 06:54] LABS: ALB/GLOB Ratio 1.1 RATIO (0.9-2.4); AST(SGOT) 232 U/L (15-37); Alanine Aminotransfer ALT/SGPT 153 U/L (16-61); Albumin, Serum 3.8 g/dL (3.2-5.0); Alkaline Phosphatase 85 U/L (45-117); Anion Gap 8 (5-15); BUN 10 mg/dL (7-18); BUN/Creat Ratio 11.1 RATIO (10-20); Calcium,Total 8.7 mg/dL (8.5-10.1); Chloride 104 mmol/L (98-107); EST Glomerular Filtration Rate 93 mL/min (>60); Est Glom Filt Rate - Afr Amer 112 mL/min (>60); Estimated Creatinine Clearance 95.76 ml/min; Globulin 3.5 g/dL (2.2-4.2); Glucose 268 mg/dL (74-106); Lipase 409 U/L (13-75); Magnesium 1.9 mg/dL (1.6-2.6); Phosphorus 2.6 mg/dL (2.5-4.9); Potassium 3.5 mmol/L (3.5-5.1); Protein, Total 7.3 g/dL (6.4-8.2); Sodium Level 136 mmol/L (136-145)
[2022-10-19 07:12] LABS: Differential Comment SCANNED
[2022-10-19 07:40] LABS: Hemoglobin A1c 8.3 % (3.8-5.6)
--- NOTE | 2022-10-19 09:38 | CASEMGMT ---
GUNNAR LOUIE Assessment: Face to Face with pt for initial transition planning/care coordination assessment. RN LIBAN introduced self and role at [facility], pt voices understanding and consents to assessment. Pt is A/O x4 and answers all questions appropriately at this time. Pt sitting up in chair wincing in pain with at bedside. Care providers, pharmacy, and demographics verified/updated. Admitting Dx: acute cholecystitis with pancreatitis PCP:[facility]:Pt denies Preferred Pharmacy:[facility] Insurance: [place] Prescription Benefit: yes LNOK: Romina Hare, Living Arrangements: Pt lives with in a single story home with 3 steps to enter. Pt reports he is I in ADL's and denies concerns at home. Transportation: Pt drives self and denies concerns with transportation. DME/HHC/SNF: Pt has an autopap, no AD. Pt denies hx of HHC or SNF stays. Pt states no concerns with going home at time of dc. Pt states no further concerns/needs. CM to follow. Advised pt to ask CM if any further question/concerns/needs arise, voices understanding. Pt Goal: Home Plan: Home
--- NOTE | 2022-10-19 10:58 | PN.SURG_ITS ---
Subjective Subjective Patient seen and examined during AM rounds. He reported a difficult overnight course due to increased pain and inability to get comfortable. He is pacing the floor because he still is unable to get comfortable. He remains n.p.o. since midnight in anticipation of today's procedure Objective Data Objective Data Vital Signs: Vital Signs Temp Pulse Resp BP Pulse Ox O2 Del Method 98 F 77 18 180/70 H 98 Room Air 10/19/22 09:45 10/19/22 09:45 10/19/22 09:45 10/19/22 09:45 10/19/22 09:45 10/19/22 09:45 Oxygen Delivery Method Room Air Weight: 188 lb 4.8 oz Body Mass Index (BMI) 27.0 Intake & Output: Intake and Output for Last 24 Hours 10/17/22 10/18/22 10/19/22 23:59 23:59 23:59 Intake Total 1100 / 1100 1087.5 / 1087.5 Balance 1100 / 1100 1087.5 / 1087.5 Lab / Micro Data 10/19/22 05:40 10/19/22 05:40 Labs: Laboratory Results - last 24 hr 10/18/22 14:30: WBC 12.0 H, RBC 5.05, Hgb 15.7, Hct 44.2, MCV 87.5, MCH 31.1, MCHC 35.5, RDW Std Deviation 37.2, RDW Coeff of Rodrigue 11.8, Plt Count 207, MPV 10.9, Immature Gran % (Auto) 0.300, Neut % (Auto) 83.9 H, Lymph % (Auto) 8.2 L, [place] % (Auto) 6.5, Eos % (Auto) 0.8, Baso % (Auto) 0.3, Absolute Neuts (auto) 10.1 H, Absolute Lymphs (auto) 0.98, Nucleated RBC % 0, Sodium 137, Potassium 4.4, Chloride 102, Carbon Dioxide 29.0, Anion Gap 6, BUN 16, Creatinine 0.99, Estim Creat Clear Calc 87.05, Est GFR (MDRD) Af Amer 101, Est GFR (MDRD) Non-Af 84, BUN/Creatinine Ratio 16.2, Glucose 238 H, Calcium 9.2, Total Bilirubin 2.90 H, Direct Bilirubin 1.07 H, AST 67 H, ALT 63 H, Alkaline Phosphatase 72, Total Protein 7.5, Albumin 3.9, Globulin 3.6, Lipase 1548 H 10/18/22 16:03: Urine Color Yellow, Urine Clarity Clear, Urine pH 5.0, Ur Specific [place] 1.015, Urine Protein Negative, Urine Glucose (UA) Normal, Urine Ketones Negative, Urine Occult Blood 25 H, Urine Nitrite Negative, Urine Bilirubin Negative, Urine Urobilinogen Normal, Ur Leukocyte Esterase Negative, Urine RBC 0 SEEN, Urine WBC 0 SEEN, Ur Squamous Epith Cells 0 SEEN, Urine Bacteria 0 SEEN, Urine Mucus 0 SEEN 10/19/22 05:40: WBC 11.6 H, RBC 5.12, Hgb 16.4, Hct 45.7, MCV 89.3, MCH 32.0, MCHC 35.9, RDW Std Deviation 38.3, RDW Coeff of Rodrigue 11.9, Plt Count 190, MPV 11.2, Immature Gran % (Auto) 0.400, Neut % (Auto) 92.0 H, Lymph % (Auto) 3.3 L, [place] % (Auto) 4.1, Eos % (Auto) 0.0, Baso % (Auto) 0.2, Absolute Neuts (auto) 10.7 H, Absolute Lymphs (auto) 0.38 L, Nucleated RBC % 0, Differential Comment SCANNED, Sodium 136, Potassium 3.5, Chloride 104, Carbon Dioxide 24.0, Anion Gap 8, BUN 10, Creatinine 0.90, Estim Creat Clear Calc 95.76, Est GFR (MDRD) Af Amer 112, Est GFR (MDRD) Non-Af 93, BUN/Creatinine Ratio 11.1, Glucose 268 H, Hemoglobin A1c 8.3 H, Calcium 8.7, Phosphorus 2.6, Magnesium 1.9, Total Bilirubin 7.90 H, AST 232 H, ALT 153 H, Alkaline Phosphatase 85, Total Protein 7.3, Albumin 3.8, Globulin 3.5, Albumin/Globulin Ratio 1.1, Lipase 409 H Radiography Diagnostic Testing: Radiology Impression Abdomen/Pelvis CT 10/18/22 14:21 IMPRESSION: Abnormal appearance of the gallbladder. Possible cholelithiasis and cholecystitis. Multiple bilateral nonobstructing renal stones. Prominent fatty liver and hepatomegaly. Electronically Signed: Josiah Flores MD at 16:18 EDT , Gallbladder Ultrasound 10/18/22 16:14 IMPRESSION: Limited as above. Distended gallbladder with a thickened wall, gallstones, and sludge. Dilated common bile duct. Electronically Signed: Josiah Flores MD at 17:39 EDT , Physical Exam Const Constitutional Narrative: Appears somewhat distraught with discomfort Resp normal respiratory effort GI GI Narrative: Mildly distended abdomen with more pronounced tenderness of the right upper quadrant and epigastrium Assessment & Plan Assessment/Plan (1) Acute cholecystitis: PLAN: 56-year-old male hospital day 2 for admission for acute cholecystitis. Remains tender in right upper quadrant with more discomfort overnight. Now jaundiced with increased bilirubin. 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 We will plan to proceed to the OR as scheduled for cholecystectomy with cholangiography. (2) Acute gallstone pancreatitis: PLAN: Lipase down trended to 640s from 1500 yesterday. Patient remains tender in epigastrium. (3) Common bile duct dilatation: PLAN: Patient with mildly dilated common bile duct and evidence of both acute cholecystitis and acute pancreatitis. This suggest possibility of choledocholithiasis. Alternatively, common duct may be extrinsically compressed through Mirizzi syndrome. We will look to further evaluate via cholangiogram. (4) Hyperbilirubinemia: PLAN: Now manifesting as jaundice. Appears to be secondary to persistent biliary ductal obstruction. Further evaluate at the time of operation as discussed above. Charges/Coding Visit Charges Inpatient E&M: 31407 Subs Hosp L2
[2022-10-19] MEDS: hydrALAZINE 20 MG/ML Vial 10 MG IV (11:23)
--- NOTE | 2022-10-19 11:56 | NURSING ---
Patient transported off unit to with [employer]LL[employer]. Tamar in was notified of pt's bp being elevated and prn hydralazine given with no improvement.
[2022-10-19] MEDS: 0.9% Normal Saline 1,000 ML 15 ML IV ×2 (12:11→16:13)
--- NOTE | 2022-10-19 14:00 | RAD_ITS ---
STUDY: INTRAOPERATIVE CHOLANGIOGRAM. REASON FOR EXAM: Male, 56 years old. Laparoscopic cholecystectomy. FLUOROSCOPY TIME (if supplied): ( 31.3 seconds ) minutes/seconds. 15.02 mGy TECHNIQUE: Intraoperative cholangiogram was performed by the surgeon. Imaging was submitted. COMPARISON: None. FINDINGS: The intra and extrahepatic biliary ducts are unremarkable. Free flow of contrast into the duodenum. RAD/Cholangiogram/ O R,Initial IMPRESSION: Unremarkable intraoperative cholangiogram. Electronically Signed: Mao Yadav MD at 15:18 EDT ,
[2022-10-19] MEDS: Bupivacaine Mpf 0.5% 30 ML VIAL (15:08)
--- NOTE | 2022-10-19 15:09 | PCM.OPRPT ---
Report of Operation Date of Procedure: 10/19/22 Pre-Operative Diagnosis: 1. Acute cholecystitis 2. Acute pancreatitis 3. Dilated common bile duct with hyperbilirubinemia 4. Steatohepatitis Post-Operative Diagnosis: Same Surgery/Procedure Performed:: Laparoscopic cholecystectomy with intraoperative cholangiography Description of Surgical Findings:: ? Severely inflamed gallbladder was tense with edema ? Dilated cystic duct and friable gallbladder wall ? Cholangiogram showing free flow of contrast through the cystic duct and common hepatic duct into the duodenum via the ampulla of Vater with mild tortuosity of the distal common bile duct. Retrograde flow through the common hepatic and proper hepatic ducts also noted Surgeon: Darrius Rubalcava cinder crusher operator: Alxeus Wen cinder crusher operator: Dennis Chris Type of Anesthesia: General/Supplemental Anesthesiologist: Cristobal Dubon Specimen's removed: Gallbladder Drains: No Estimated Blood Loss (mL): 100 Description of Procedure: After proper identification in the preoperative holding area the patient was brought to the operating room where he was positioned supine on the operating room table. Preoperatively SCDs were placed and scheduled antibiotics were redosed. General anesthesia was then induced. Patient's abdomen was prepped and draped in usual sterile fashion. A formal timeout was conducted to confirm both patient and the procedure. Procedure was begun with a supraumbilical incision which was extended deeply down to the level of the fascia. The fascia was elevated and incised, as well as the peritoneum. A finger sweep was performed to ensure there were no underlying adhesions and a 12 mm balloon trocar was inserted. Pneumoperitoneum was established at 15 mmHg. 3 additional trocars were placed in the epigastrium (initially 5 mm but later converted to 12 mm) and in the right upper quadrant (2 x 5 mm). Inspection of the peritoneum revealed no inadvertent injury to the viscera below. The gallbladder was visualized with severe inflammation and was mildly distended. Given this appearance, the gallbladder was punctured in the gallbladder fundus region and bile was aspirated to promote manipulation of the gallbladder for the surgery. The gallbladder fundus was then grasped and elevated cephalad. Then, using careful dissection the peritoneum was opened and the structures of the hepatocystic triangle were delineated. There was diffuse oozing with the severe inflammatory process at hand and required active electrocautery in the body of the gallbladder to stop the oozing so that clear distinction the anatomy can be made. Once the critical view of safety was obtained, the bladder neck/cystic duct was occluded distally with the application of the Hennessy clamp and the gallbladder was punctured with the associated catheter. Under fluoroscopy a cholangiogram was then obtained showing a long cystic duct (of relatively normal caliber distally) flowing into a common bile duct with unobstructed antegrade flow of contrast into the duodenum. There was also retrograde flow through the common hepatic duct into the right and left hepatic ducts. Satisfied with this result, the cholangiocatheter was withdrawn and the proximal cystic duct was further lengthened to facilitate placement of a 10 mm clip as the presently dissected gallbladder was still too dilated. I then upsized the subxiphoid port site to a 12 mm diameter and the cystic duct was sealed with clips for it was completely transected. The same process was used for the cystic artery. The gallbladder was then removed from the gallbladder fossa with the use of electrocautery. Selective electrocautery was used to obtain hemostasis in the gallbladder fossa. The gallbladder was placed in an Endo Catch bag and removed from the peritoneum. Morison's pouch was irrigated and the effluent was suctioned free of the peritoneum. Hemostasis was again confirmed. Pneumoperitoneum was evacuated and the fascia of the 12 mm port sites was closed with #1Vicryl in a [id number] fashion. A total of 30 mL of anesthetic was injected at the port sites for postoperative pain control. The skin of each port site was then closed in subcuticular fashion using 4-0 Monocryl. Steri-Strips and bandages were applied as dressings. Patient tolerated the procedure well without any apparent complications. On emergence from their anesthetic the patient was taken to PACU for ongoing recovery. Grafts/Implants Used: NA Complications None Admit VTE Documentation VTE Mechan Device Prophylaxis: SCD's Procedures Digestive 40xxx-49xxx: 11998 Laparo cholecystectomy/graph
--- NOTE | 2022-10-19 17:50 | NURSING ---
Patient arrives to floor from PACU at approximately 1735. He is insistent on using the bathroom before this RN is able to do assessment or VS. Patient assisted up to BR with COMPUTER NETWORKING INSTRUCTOR ADJUNCT and wants to sit on the toilet for several minutes. Reports he has a strong urge to void and feels like he possibly needs to have a BM. Will monitor. remains at bedside as well.
[2022-10-19] MEDS: hydroCHLOROthiazide 6.25mg TAB 6.25 MG PO (18:39)
[2022-10-19] MEDS: Lisinopril 5 MG Tablet PO (18:39)
[2022-10-20 02:30] VITALS: BP 165/75; PULSE 82; RESP 16; TEMP 36.8; O2SAT 97
[2022-10-20 06:30] VITALS: BP 159/70; PULSE 77; RESP 16; TEMP 36.8; O2SAT 97
[2022-10-20] MEDS: HYDROcodone Bitartrate/Apap 5/325 Tablet PO ×2 (06:31→17:35)
--- NOTE | 2022-10-20 07:04 | PCM.PN.SRG ---
Subjective Subjective Patient is doing much better. He reports he is only having soreness at his incisions. The pain in his abdomen is much improved. He denied any nausea. Objective Data Objective Data Vital Signs: Vital Signs Temp Pulse Resp BP Pulse Ox O2 Del Method O2 Flow Rate 98.2 F 77 16 159/70 H 97 CPAP 8 10/20/22 06:30 10/20/22 06:30 10/20/22 06:30 10/20/22 06:30 10/20/22 06:30 10/20/22 06:30 10/19/22 16:00 Oxygen Flow Rate (L/min) 8 Oxygen Delivery Method CPAP Weight: 188 lb 4.8 oz Body Mass Index (BMI) 27.0 Intake & Output: Intake and Output for Last 24 Hours 10/18/22 10/19/22 10/20/22 23:59 23:59 23:59 Intake Total 1100 / 1100 4529.25 / 4529.25 Output Total 800 / 800 Balance 1100 / 1100 4529.25 / 4529.25 -800 / -800 Lab / Micro Data 10/19/22 05:40 10/19/22 05:40 Labs: Laboratory Results - last 24 hr 10/19/22 05:40: Differential Comment SCANNED, Hemoglobin A1c 8.3 H Radiography Diagnostic Testing: Radiology Impression Cholangiogram 10/19/22 14:00 IMPRESSION: Unremarkable intraoperative cholangiogram. Electronically Signed: Mao Yadav MD at 15:18 EDT , Physical Exam Const oriented x3 and no apparent distress GI soft to palpation Inspection: Negative for abdominal distention Assessment & Plan Assessment/Plan (1) Acute gallstone pancreatitis: PLAN: Patient reports his pain is much improved and only has the soreness at his incision sites. He denies any nausea overnight he says he is able to sleep. I will start him on a diet and see how he does. I am waiting for morning labs to see what his LFTs are doing today. Possible discharge later today or tomorrow if tolerating diet and pain well controlled and LFTs start decreasing. Bryson Merritt MD Pager: [facility] [address] [place] [address], [address] [place] [address] Office:
[2022-10-20 07:48] LABS: Absolute Neutrophil Count 11.3 X10^3/uL (2.0-7.7); Basophil# 0.03 X10^3/uL; Basophil% 0.2 % (0-1); Eosinophil# 0.01 X10^3/uL; Eosinophils% 0.1 % (0-5); Hematocrit 44.2 % (40-54); Hemoglobin 15.4 g/dL (13.0-16.5); Lymphocyte % 4.7 % (19-41); Mean Corp Hgb Conc 34.8 g/dL (32-36); Mean Corpuscular Hgb 31.7 pg (27.0-32.0); Mean Corpuscular Volume 90.9 fL (80-94); Mean Platelet Vol. 11.8 fl (6.2-12.0); Monocyte# 0.79 X10^3/uL; Monocyte% 6.2 % (0-10); NRBC Flagged by Analyzer 0 % (0-5); Neutrophil # 11.25 X10^3/uL (2.7-7.7); Neutrophil % 88.4 % (47-70); POSITIVE DIFFERENTIAL YES; Platelet Count 183 K/mm3 (150-450); RBC Distribution Width CV 12.5 % (11.6-14.6); RBC Distribution Width SD 41.1 fl (35.1-43.9); Red Blood Count 4.86 M/mm3 (4.6-6.2); White Blood Count 12.7 K/mm3 (4.4-11.0)
[2022-10-20 07:53] LABS: Differential Indicated SCAN CRITERIA MET
[2022-10-20 08:31] LABS: ALB/GLOB Ratio 0.9 RATIO (0.9-2.4); AST(SGOT) 1125 U/L (15-37); Alanine Aminotransfer ALT/SGPT 858 U/L (16-61); Albumin, Serum 3.3 g/dL (3.2-5.0); Alkaline Phosphatase 181 U/L (45-117); Anion Gap 5 (5-15); BUN 10 mg/dL (7-18); BUN/Creat Ratio 10.8 RATIO (10-20); Calcium,Total 9.1 mg/dL (8.5-10.1); Chloride 100 mmol/L (98-107); Creatinine, Serum 0.93 mg/dL (0.70-1.30); EST Glomerular Filtration Rate 90 mL/min (>60); Est Glom Filt Rate - Afr Amer 108 mL/min (>60); Estimated Creatinine Clearance 92.67 ml/min; Globulin 3.5 g/dL (2.2-4.2); Glucose 235 mg/dL (74-106); Potassium 4.3 mmol/L (3.5-5.1); Protein, Total 6.8 g/dL (6.4-8.2); Sodium Level 133 mmol/L (136-145)
[2022-10-20 09:03] VITALS: BP 157/71; PULSE 88; RESP 16; TEMP 36.7; O2SAT 97
[2022-10-20] MEDS: Fluticasone 0.05% 1 SPRAY NASAL.SRY NASAL (09:17)
[2022-10-20] MEDS: Lisinopril 5 MG Tablet PO (09:18)
[2022-10-20] MEDS: hydroCHLOROthiazide 6.25mg TAB 6.25 MG PO (09:18)
[2022-10-20 10:29] LABS: Differential Comment SCANNED
[2022-10-20 13:50] VITALS: BP 148/80; PULSE 109; RESP 16; TEMP 36.9; O2SAT 95
[2022-10-20 17:19] VITALS: BP 148/83; PULSE 123; RESP 18; TEMP 37.8; O2SAT 94
[2022-10-20 18:25] VITALS: BP 152/79; PULSE 114; RESP 16; TEMP 36.8; O2SAT 96
--- NOTE | 2022-10-20 19:32 | EX.PCM.CON.G ---
HPI Consult Data Date of Consult: 10/20/22 HPI Narrative Reason for Consultation: hepatitis HPI Narrative: NELLI MORA, is a 56 M who presents with worsening abdominal pain. He has a past medical history of type 2 diabetes, hypertension, hyperlipidemia, nephrolithiasis. He has been saline very fatigued and weak for the last 6 months and it has gotten progressively worse over the last 2 months. In evaluation of his liver his PCP had ordered a work-up for possible autoimmune hepatitis. As per his he has had a elevated anti-smooth muscle antibody (I am not sure what the titer is ). His did not know if he had a positive LULU to go with his anti-smooth muscle antibody. He also was noted to have hyper ferritin anemia as per his with an elevated iron level. They have been adjusting his diet after his diagnosis of type 2 diabetes and trying to decrease the amount of iron that he takes and on a daily basis through his diet. He denies any rashes. He has no family history of liver disease. He does not drink any alcohol. He has not had any blood transfusions. He has no previous history of chronic viral hepatitis or acute viral hepatitis. On this admission, he presented with 3 days of worsening abdominal discomfort. He has been having abdominal bloating and discomfort for the past several months. On evaluation in the ED he was determined to have hepatomegaly with an enlarged liver on CT scan. There were no signs of pancreatitis on the CT. However his labs did show elevated amylase and lipase. Ultrasound showed gallbladder wall thickening of 4 mm with an enlarged gallbladder and common bile duct dilation was noted on the report but the size was not given. Initial evaluation showed mild hyperbilirubinemia of 2.9, alk phos of 72, AST 67 and AST of 63. He underwent cholecystectomy with normal intraoperative cholangiogram as per radiology. Yesterday his bilirubin went up to 7.9, alk phos 85, AST of 232, ALT 153. Today his bilirubin is up to 10.4, alkaline phosphatase 181, AST of 1125 and ALT at 858. Currently complains of bloating and abdominal discomfort. [facility] Medical History (Updated 10/20/22 @ 19:[address] Kasper Friend, DO) Acute gallstone pancreatitis Diabetes High cholesterol Hypertension Obstructive sleep apnea Home Medications ketorolac 10 mg tablet 10 mg PO Q6H PRN Pain Score 4-10 #14 tabs 06/04/20 [Rx Last Taken Unknown] ondansetron 4 mg disintegrating tablet 4 mg PO Q8H PRN PRN Nausea #10 tabs 06/04/20 [Rx Last Taken Unknown] tamsulosin 0.4 mg capsule 0.4 mg PO DAILY #7 caps 06/04/20 [Rx Last Taken Unknown] benazepril 10 mg-hydrochlorothiazide 12.5 mg tablet 0.5 tab PO DAILY 06/07/20 [History Last Taken Unknown] flaxseed oil 1,000 mg capsule 1,000 mg PO DAILY 06/07/20 [History Last Taken Unknown] fluticasone propionate 50 mcg/actuation nasal spray,suspension 1 spray NASAL DAILY 06/07/20 [History Last Taken Unknown] gemfibrozil 600 mg tablet 600 mg PO BIDAC 06/07/20 [History Last Taken Unknown] loratadine 10 mg tablet 10 mg PO DAILY 06/07/20 [History Last Taken Unknown] multivitamin 1 ea PO DAILY 06/07/20 [History Last Taken Unknown] ciprofloxacin HCl 500 mg tablet 500 mg PO BID #6 tabs 06/09/20 [Rx Last Taken Unknown] omega 8-thd-ajc-fish oil 1,200 mg (144 mg-216 mg) capsule (Fish Oil) cap PO general health 10/18/22 [History Last Taken 10/18/22] Allergy/AdvReac Type Severity Reaction Status Date / Time clemastine [From Tavist] Allergy Rash Verified 06/07/20 15:22 pseudoephedrine [From Tavist] Allergy Rash Verified 06/07/20 15:22 Social History Smoking Status: Never smoker Physical Exam Const Constitutional Narrative: Appears somewhat distraught with discomfort Resp normal respiratory effort Cardio Cardio Narrative: Central venous pulsations with tachycardia GI GI Narrative: Mildly distended abdomen with more pronounced tenderness of the right upper quadrant and epigastrium Lab / Micro Data 10/20/22 07:33 10/20/22 07:33 Labs: Laboratory Results - last 24 hr 10/20/22 07:33: WBC 12.7 H, RBC 4.86, Hgb 15.4, Hct 44.2, MCV 90.9, MCH 31.7, MCHC 34.8, RDW Std Deviation 41.1, RDW Coeff of Rodrigue 12.5, Plt Count 183, MPV 11.8, Immature Gran % (Auto) 0.400, Neut % (Auto) 88.4 H, Lymph % (Auto) 4.7 L, [place] % (Auto) 6.2, Eos % (Auto) 0.1, Baso % (Auto) 0.2, Absolute Neuts (auto) 11.3 H, Absolute Lymphs (auto) 0.60 L, Nucleated RBC % 0, Differential Comment SCANNED, Sodium 133 L, Potassium 4.3, Chloride 100, Carbon Dioxide 28.0, Anion Gap 5, BUN 10, Creatinine 0.93, Estim Creat Clear Calc 92.67, Est GFR (MDRD) Af Amer 108, Est GFR (MDRD) Non-Af 90, BUN/Creatinine Ratio 10.8, Glucose 235 H, Calcium 9.1, Total Bilirubin 10.40 H, AST 1125 H, ALT 858 H, Alkaline Phosphatase 181 H, Total Protein 6.8, Albumin 3.3, Globulin 3.5, Albumin/Globulin Ratio 0.9 Radiology Impression Cholangiogram 10/19/22 14:00 IMPRESSION: Unremarkable intraoperative cholangiogram. Electronically Signed: Mao Yadav MD at 15:18 EDT , Assessment & Plan Assessment/Plan (1) Acute hepatitis: PLAN: The differential diagnosis for his acute hepatitis is decompensated liver disease secondary to possible decompensated autoimmune hepatitis, IgG4 related acute hepatitis and acute pancreatitis, ischemic hepatitis status post surgery, primary or secondary hemochromatosis, Tim's disease, but less likely viral hepatitis or drug injury to the liver in a patient with underlying liver disease. Recommendation: -N-acetylcysteine -No Tylenol products -Emperic steroids with insulin if LFTs and INR keep elevating -Check IgG4 level, LULU, INR, PT, PTT -Anti-smooth muscle antibody, antiliver muscle kidney antibody -CMV IgG and IgM, EBV IgG IgM -ANCA antibody -Anti-liver cytosol antibodies -Ferritin level -Ultrasound with Dopplers -ESR and CRP -Serum and urine protein electrophoresis -CPK -2D echo to see if he has any cardiac abnormalities secondary to hyperferritinemia from primary hemochromatosis versus secondary hemochromatosis from Nicole Charges/Coding Visit Charges Inpatient E&M: 56885 Init Hosp L3
[2022-10-20] MEDS: 0.9% Normal Saline 1,000 ML 999 ML IV (20:16)
[2022-10-20 20:58] LABS: International Normalized Ratio 1.3; Prothrombin Time (Protime)PT. 15.9 SECONDS (11.7-14.9)
[2022-10-20 20:59] LABS: Partial Thromboplast Time 32.1 Seconds (24.1-36.2)
[2022-10-20 21:02] LABS: Erythrocyte Sedimentation Rate 29 mm/hr (0-20)
[2022-10-20 21:13] LABS: CPK Total, Creatine Kinase 126 U/L (39-308); Lactic Acid 1.1 mmol/L (0.4-1.9)
[2022-10-20 21:30] LABS: Ferritin 14827 ng/mL (26-388); Iron 90 ug/dL (65-175); Iron Binding Capacity,Total 375 ug/dL (250-450); LDH 528 U/L (87-241)
[2022-10-20] MEDS: Ibuprofen 600 MG Tablet PO (21:54)
[2022-10-20] MEDS: MethylPREDNISolone 125 MG/2 ML Vial 80 MG IV (21:54)
[2022-10-21 01:30] VITALS: BP 190/89; PULSE 81; RESP 18; TEMP 36.6; O2SAT 95
[2022-10-21 02:19] VITALS: BP 190/81; PULSE 81
[2022-10-21] MEDS: hydrALAZINE 20 MG/ML Vial 10 MG IV (02:19)
[2022-10-21] MEDS: 0.9% Saline Lock 10 ML Syringe IV ×2 (02:20→17:55)
[2022-10-21] MEDS: Ibuprofen 600 MG Tablet PO (06:14)
[2022-10-21 06:27] VITALS: BP 153/101
[2022-10-21 07:06] LABS: Absolute Lymphocyte Count 0.45 X10^3/uL (0.83-4.51); Absolute Neutrophil Count 8.6 X10^3/uL (2.0-7.7); Basophil# 0.01 X10^3/uL; Basophil% 0.1 % (0-1); Hematocrit 41.4 % (40-54); Hemoglobin 14.6 g/dL (13.0-16.5); Lymphocyte # 0.45 X10^3/ul (0.83-4.51); Lymphocyte % 4.8 % (19-41); Mean Corp Hgb Conc 35.3 g/dL (32-36); Mean Corpuscular Hgb 31.4 pg (27.0-32.0); Monocyte# 0.24 X10^3/uL; Monocyte% 2.6 % (0-10); NRBC Flagged by Analyzer 0 % (0-5); Neutrophil # 8.56 X10^3/uL (2.7-7.7); Neutrophil % 91.9 % (47-70); POSITIVE DIFFERENTIAL YES; Platelet Count 167 K/mm3 (150-450); RBC Distribution Width CV 12.5 % (11.6-14.6); RBC Distribution Width SD 40.9 fl (35.1-43.9); Red Blood Count 4.65 M/mm3 (4.6-6.2); White Blood Count 9.3 K/mm3 (4.4-11.0)
[2022-10-21 07:14] LABS: Differential Indicated SCAN CRITERIA MET
[2022-10-21 07:31] LABS: ALB/GLOB Ratio 0.8 RATIO (0.9-2.4); AST(SGOT) 646 U/L (15-37); Alanine Aminotransfer ALT/SGPT 802 U/L (16-61); Albumin, Serum 2.8 g/dL (3.2-5.0); Alkaline Phosphatase 244 U/L (45-117); Anion Gap 8 (5-15); BUN 13 mg/dL (7-18); BUN/Creat Ratio 16.6 RATIO (10-20); Chloride 100 mmol/L (98-107); Creatinine, Serum 0.78 mg/dL (0.70-1.30); EST Glomerular Filtration Rate 109 mL/min (>60); Est Glom Filt Rate - Afr Amer 132 mL/min (>60); Estimated Creatinine Clearance 110.49 ml/min; Globulin 3.3 g/dL (2.2-4.2); Glucose 289 mg/dL (74-106); Potassium 3.5 mmol/L (3.5-5.1); Protein, Total 6.1 g/dL (6.4-8.2); Sodium Level 134 mmol/L (136-145)
[2022-10-21 08:00] VITALS: BP 147/76; PULSE 94; RESP 16; TEMP 36.4; O2SAT 95
[2022-10-21 09:01] LABS: Differential Comment SCANNED
--- NOTE | 2022-10-21 09:34 | PCM.PN.SRG ---
Subjective Subjective Patient says he feels well. He tolerated some regular diet yesterday. He is only complaining of incisional pain. He denies any nausea or vomiting. Objective Data Objective Data Vital Signs: Vital Signs Temp Pulse Resp BP Pulse Ox O2 Del Method O2 Flow Rate 97.5 F L 94 16 147/76 H 95 Room Air 8 10/21/22 08:00 10/21/22 08:00 10/21/22 08:00 10/21/22 08:00 10/21/22 08:00 10/21/22 08:00 10/19/22 16:00 Oxygen Flow Rate (L/min) 8 Oxygen Delivery Method Room Air Weight: 188 lb 4.8 oz Body Mass Index (BMI) 27.0 Intake & Output: Intake and Output for Last 24 Hours 10/19/22 10/20/22 10/21/22 23:59 23:59 23:59 Intake Total 4529.25 / 4529.25 1264 / 1514 250 / 250 Output Total 800 / 800 Balance 4529.25 / 4529.25 464 / 714 250 / 250 Lab / Micro Data 10/21/22 05:36 10/21/22 05:36 Labs: Laboratory Results - last 24 hr 10/20/22 07:33: Differential Comment SCANNED 10/20/22 20:35: ESR 29 H, PT 15.9 H, INR 1.3, APTT 32.1, Lactic Acid 1.1, Iron 90, TIBC 375, Iron Saturation 24.0, Ferritin 76421 H, Ammonia 29.0, Lactate Dehydrogenase 528 H, Total Creatine Kinase 126, C-React Prot Ext Range 88.60 H 10/21/22 05:36: WBC 9.3, RBC 4.65, Hgb 14.6, Hct 41.4, MCV 89.0, MCH 31.4, MCHC 35.3, RDW Std Deviation 40.9, RDW Coeff of Rodrigue 12.5, Plt Count 167, MPV 12.0, Immature Gran % (Auto) 0.600, Neut % (Auto) 91.9 H, Lymph % (Auto) 4.8 L, [place] % (Auto) 2.6, Eos % (Auto) 0.0, Baso % (Auto) 0.1, Absolute Neuts (auto) 8.6 H, Absolute Lymphs (auto) 0.45 L, Nucleated RBC % 0, Differential Comment SCANNED, Sodium 134 L, Potassium 3.5, Chloride 100, Carbon Dioxide 26.0, Anion Gap 8, BUN 13, Creatinine 0.78, Estim Creat Clear Calc 110.49, Est GFR (MDRD) Af Amer 132, Est GFR (MDRD) Non-Af 109, BUN/Creatinine Ratio 16.6, Glucose 289 H, Calcium 9.0, Total Bilirubin 10.90 H, AST 646 H, ALT 802 H, Alkaline Phosphatase 244 H, Total Protein 6.1 L, Albumin 2.8 L, Globulin 3.3, Albumin/Globulin Ratio 0.8 L Radiography Diagnostic Testing: Radiology Impression Cholangiogram 10/19/22 14:00 IMPRESSION: Unremarkable intraoperative cholangiogram. Electronically Signed: Mao Yadav MD at 15:18 EDT Reading Location ID and State: [facility] / [place] , Service support , Physical Exam Const oriented x3 Resp normal respiratory effort GI soft to palpation and non-tender Assessment & Plan Assessment/Plan (1) Acute hepatitis: PLAN: Patient's LFTs remain the same. GI ordered a panel and suspects hepatitis. Continue regular diet and recheck labs tomorrow. Bryson Merritt MD Pager: [facility] [address] [place] [address], [address] [place] [address] Office:
[2022-10-21] MEDS: Fluticasone 0.05% 1 SPRAY NASAL.SRY NASAL (10:01)
[2022-10-21] MEDS: Lisinopril 5 MG Tablet PO (10:02)
[2022-10-21] MEDS: MethylPREDNISolone 125 MG/2 ML Vial 80 MG IV (10:02)
[2022-10-21] MEDS: hydroCHLOROthiazide 6.25mg TAB 6.25 MG PO (10:02)
[2022-10-21 13:42] VITALS: BP 140/77; PULSE 94; RESP 16; TEMP 36.6; O2SAT 96
--- NOTE | 2022-10-21 16:57 | PN.GI_ITS ---
Subjective Subjective Patient is doing a lot better today. He is tolerating a diet. His abdominal pain is down to 4 out of 10. He did have some bloating and some mild cramping that got better with nonsteroidal therapy. He has been afebrile. Objective Data Objective Data Vital Signs: Vital Signs Temp Pulse Resp BP Pulse Ox O2 Del Method O2 Flow Rate 97.8 F 94 16 140/77 H 96 Room Air 8 10/21/22 13:42 10/21/22 13:42 10/21/22 13:42 10/21/22 13:42 10/21/22 13:42 10/21/22 13:42 10/19/22 16:00 Oxygen Flow Rate (L/min) 8 Oxygen Delivery Method Room Air Weight: 188 lb 4.8 oz Body Mass Index (BMI) 27.0 Intake & Output: Intake and Output for Last 24 Hours 10/19/22 10/20/22 10/21/22 23:59 23:59 23:59 Intake Total 4529.25 / 4529.25 1264 / 1514 771.35 / 771.35 Output Total 800 / 800 Balance 4529.25 / 4529.25 464 / 714 771.35 / 771.35 Lab / Micro Data 10/21/22 05:36 10/21/22 05:36 Labs: Laboratory Results - last 24 hr 10/20/22 20:35: ESR 29 H, PT 15.9 H, INR 1.3, APTT 32.1, Lactic Acid 1.1, Iron 90, TIBC 375, Iron Saturation 24.0, Ferritin 00404 H, Ammonia 29.0, Lactate Dehydrogenase 528 H, Total Creatine Kinase 126, C-React Prot Ext Range 88.60 H 10/21/22 05:36: WBC 9.3, RBC 4.65, Hgb 14.6, Hct 41.4, MCV 89.0, MCH 31.4, MCHC 35.3, RDW Std Deviation 40.9, RDW Coeff of Rodrigue 12.5, Plt Count 167, MPV 12.0, Immature Gran % (Auto) 0.600, Neut % (Auto) 91.9 H, Lymph % (Auto) 4.8 L, [place] % (Auto) 2.6, Eos % (Auto) 0.0, Baso % (Auto) 0.1, Absolute Neuts (auto) 8.6 H, Absolute Lymphs (auto) 0.45 L, Nucleated RBC % 0, Differential Comment SCANNED, Sodium 134 L, Potassium 3.5, Chloride 100, Carbon Dioxide 26.0, Anion Gap 8, BUN 13, Creatinine 0.78, Estim Creat Clear Calc 110.49, Est GFR (MDRD) Af Amer 132, Est GFR (MDRD) Non-Af 109, BUN/Creatinine Ratio 16.6, Glucose 289 H, Calcium 9.0, Total Bilirubin 10.90 H, AST 646 H, ALT 802 H, Alkaline Phosphatase 244 H, Total Protein 6.1 L, Albumin 2.8 L, Globulin 3.3, Albumin/Globulin Ratio 0.8 L Radiography Diagnostic Testing: Radiology Impression Cholangiogram 10/19/22 14:00 IMPRESSION: Unremarkable intraoperative cholangiogram. Electronically Signed: Mao Yadav MD at 15:18 EDT , Physical Exam Const oriented x3 Resp normal respiratory effort GI soft to palpation and non-tender Assessment & Plan Assessment/Plan (1) Acute hepatitis: PLAN: His transaminitis is improving drastically. He has severe hyper ferritin anemia that is secondary to acute liver injury in the setting of already hyper ferritin anemia. He is getting treatment for autoimmune hepatitis and ischemic hepatitis with steroids and N-acetylcysteine which he completed. He will continue on steroid therapy at 0.5 mg/kg dose per day and to be transitioned to oral therapy after he undergoes liver biopsy. Work-up for IgG associated cholangiopathy/pancreatitis along with IgG associated hepatitis and pancreatitis is pending. He will need to get liver biopsy tomorrow. N.p.o. after midnight. (2) Hemochromatosis: PLAN: His ordered some labs and that did show a ferritin level of 767 with a transferrin saturation of 51% which meets the criteria for secondary or primary hemochromatosis. Being that he does have joint swelling, arthralgia, diabetes he does reach criteria for hemochromatosis. He will need to undergo liver biopsy to see if we can transition him off of steroids as an outpatient and start azathioprine versus deferoxamine and or phlebotomy. I had a long talk with the family and they are okay with the plan. I will send genetic analysis for hemochromatosis. Charges/Coding Visit Charges Inpatient E&M: 78285 Subs Hosp L3
[2022-10-21] MEDS: Furosemide 20 MG/2 ML VIAL IV (17:55)
[2022-10-21] MEDS: Docusate Sodium 100 MG Capsule PO (18:14)
[2022-10-21 20:00] VITALS: BP 150/91; PULSE 88; RESP 18; TEMP 36.6; O2SAT 97
[2022-10-22] VITALS (13 sets, daily range): BP systolic 126–196; BP diastolic 55–81; PULSE 71–87; RESP 14–20; TEMP 36.3–37.3; O2SAT 93–97
--- NOTE | 2022-10-22 | CT_ITS ---
PROCEDURE: CT DIRECTED CORE LIVER BIOPSY INDICATION: Male, 56 years old. SEVERE HEPATITIS, LAP MARINE 10/19, JAUNDICE PHYSICIAN: Dr. Vicenta Anthony CONSENT: Written informed consent was obtained having explained the risks, benefits and alternatives in detail with the patient who accepted the risks and agreed to proceed. Laboratory review and clinical assessment was performed. CONSCIOUS SEDATION PROTOCOL: The Drugs used were: 2 mg Versed, IV., and 50 mcg Fentanyl, IV. The sedation time was: 19 minutes. Conscious sedation was started at 1:21 PM and terminated at 1:40 PM. The conscious sedation protocol was independently monitored. RADIATION DOSAGE (If Supplied By Facility): CTDIvol = ( 19.3 ) mGy, DLP = ( 1013.02 ) mGycm. Individualized dose optimization techniques were utilized. Individualized dose optimization techniques were used for this CT. TECHNIQUE: Using CT image guidance with image documentation, a suitable location in the right lobe of the liver was identified. Using an anterior approach, puncture of the liver was uneventful with an 18-gauge core needle system. 3, 18-gauge core samples were obtained, and submitted in formalin to the pathologist for further assessment. Followup CT scan revealed no distinct sequelae. CT/Biopsy/Inj or Needle Placement IMPRESSION: 1. CT directed core needle biopsy of the liver, using CT image guidance with image documentation as described. 2. Conscious Sedation protocol utilized with independent monitoring. Electronically Signed: Mao Yadav MD at 14:13 EDT ,
--- NOTE | 2022-10-22 | LIVB_PTH ---
PATIENT: NELLI MORA LOC: MS3 U#:[id number] AGE/SX: 56/M ROOM: [facility] [place] RE10/18/[address]: Dr. Darrius Rubalcava MD : 1965 BED: 1 DIS: 10/23/2022 SPEC #: [id number] RECD: 10/22/22 14:01 STATUS: SARAI REBeatrice #: [id number] ASHLEY: 10/22/22 00:[address]: Darrius Rubalcava DEPT: SURGICAL PATHOLOGY RECD BY: Carmen Spain ENTERED: 10/24/22 09:54 SP TYPE: LIVER BX OTHR DR: MD Dr. Nu Berumen MD Tissues: Liver, NOS Procedures: PAS with Diastase (control) Trichrome (control) Special Stain Group II PAS Stain (control) Surgery Specimen Level V Retic (control) Iron Stain (control) HEADER OPERATION: CT-guided liver biopsy PRE-OP DIAGNOSIS: Hepatitis TISSUE SUBMITTED: Liver 18-gauge x3 MICROSCOPIC DIAGNOSIS Liver, CT-guided core biopsy: Liver parenchymal tissue with extensive macro- and microvesicular steatosis, acute and chronic hepatitis, grade 2, stage 2. See microscopic description and comment. SJ:rg 10/24/2022 COMMENT Please also make reference to additional specimen ([id number]), gallbladder cholecystectomy. Correlation with clinical, radiologic findings and laboratory findings and appropriate follow up are necessary. This case was discussed with Dr. Ebenezer Arias on 04/09/2023. MICROSCOPIC DESCRIPTION Slides are reviewed. The specimen shows liver parenchymal tissue with preserved lobular architecture. The hepatocytes show reactive changes, extensive macro- and microvesicular steatosis and bile stasis. Focal lobular inflammation is noted. Focal hepatocyte necrosis is also present. The portal areas show moderate acute and chronic inflammatory cell infiltrate consisting of lymphocytes, eosinophils and neutrophils. Interface inflammation is also noted. Iron stain shows 2+ iron deposition in the hepatocytes. Reticulin stain is unremarkable. Trichrome stain shows increased portal fibrosis. Bridging fibrosis is not seen. No evidence of cirrhosis. PAS stain with and without diastase do not show any abnormal accumulation of protein. All stains are performed appropriate matched controls. GROSS DESCRIPTION Received in fixative is one container labeled with the patient's name and designated liver biopsy. The specimen consists of multiple elongated fragments of zamora-brown soft tissue that in aggregate measure 1.0 x 0.5 x 0.1 cm. The specimen is totally submitted in one cassette. / SJ:rg 10/22/2022 TC:3 CPT: 86436, 77960 x5 ADDENDUM ADDENDUM ADDENDUM ADDENDUM ADDENDUM ADDENDUM ADDENDUM ADDENDUM ADDENDUM ADDENDUM ADDENDUM ADDENDUM ADDENDUM ADDENDUM ADDENDUM 08/01/2023 08:23 ADDENDUM 08/01/2023 08:23 ADDENDUM 08/01/2023 08:23 ADDENDUM 08/01/2023 08:23 ADDENDUM 08/01/2023 08:23 This addendum is added to incorporate an outside pathology consultation report. The case was examined at [facility] (#[id number]) and the following diagnosis was rendered. Liver, CT -guided core biopsy (H&E and special stains): Steatohepatitis. Portal tracts with neutrophilic inflammation, mild ductular reaction and focal ductular cholestasis. 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 No increased fibrosis. Please see complete above mentioned consultation report in EMR
[2022-10-22 06:43] LABS: Absolute Lymphocyte Count 0.66 X10^3/uL (0.83-4.51); Absolute Neutrophil Count 9.1 X10^3/uL (2.0-7.7); Basophil# 0.01 X10^3/uL; Basophil% 0.1 % (0-1); Hematocrit 40.7 % (40-54); Hemoglobin 14.1 g/dL (13.0-16.5); Lymphocyte # 0.66 X10^3/ul (0.83-4.51); Lymphocyte % 6.3 % (19-41); Mean Corp Hgb Conc 34.6 g/dL (32-36); Mean Corpuscular Hgb 31.2 pg (27.0-32.0); Mean Platelet Vol. 11.9 fl (6.2-12.0); Monocyte# 0.71 X10^3/uL; Monocyte% 6.7 % (0-10); NRBC Flagged by Analyzer 0 % (0-5); Neutrophil # 9.11 X10^3/uL (2.7-7.7); Neutrophil % 86.4 % (47-70); Platelet Count 182 K/mm3 (150-450); RBC Distribution Width CV 12.3 % (11.6-14.6); Red Blood Count 4.52 M/mm3 (4.6-6.2); White Blood Count 10.5 K/mm3 (4.4-11.0)
[2022-10-22 07:09] LABS: ALB/GLOB Ratio 0.9 RATIO (0.9-2.4); AST(SGOT) 579 U/L (15-37); Alanine Aminotransfer ALT/SGPT 755 U/L (16-61); Albumin, Serum 2.8 g/dL (3.2-5.0); Alkaline Phosphatase 317 U/L (45-117); Anion Gap 5 (5-15); BUN 21 mg/dL (7-18); BUN/Creat Ratio 25.7 RATIO (10-20); Calcium,Total 8.9 mg/dL (8.5-10.1); Chloride 100 mmol/L (98-107); Creatinine, Serum 0.82 mg/dL (0.70-1.30); EST Glomerular Filtration Rate 104 mL/min (>60); Est Glom Filt Rate - Afr Amer 126 mL/min (>60); Globulin 3.2 g/dL (2.2-4.2); Glucose 275 mg/dL (74-106); Potassium 3.1 mmol/L (3.5-5.1); Sodium Level 134 mmol/L (136-145)
[2022-10-22] MEDS: Fluticasone 0.05% 1 SPRAY NASAL.SRY NASAL (08:01)
[2022-10-22] MEDS: Lisinopril 5 MG Tablet PO (08:08)
[2022-10-22] MEDS: MethylPREDNISolone 125 MG/2 ML Vial 80 MG IV (08:08)
[2022-10-22] MEDS: hydroCHLOROthiazide 6.25mg TAB 6.25 MG PO (09:26)
--- NOTE | 2022-10-22 11:20 | PCM.PN.SRG ---
Subjective Subjective Patient seen and examined during AM rounds. Patient is resting in bed. He reports that he is feeling much better. I held a lengthy conversation with he and his regarding several questions that he had from over the weekend due to observations of increased blood pressures, increased heart rates, and some lethargy particularly the first day after surgery. Objective Data Objective Data Vital Signs: Vital Signs Temp Pulse Resp BP Pulse Ox O2 Del Method O2 Flow Rate 98.1 F 77 16 141/73 H 95 Room Air 8 10/22/22 11:13 10/22/22 11:13 10/22/22 11:13 10/22/22 11:13 10/22/22 11:13 10/22/22 11:13 10/19/22 16:00 Oxygen Flow Rate (L/min) 8 Oxygen Delivery Method Room Air Weight: 188 lb 4.8 oz Body Mass Index (BMI) 27.0 Intake & Output: Intake and Output for Last 24 Hours 10/20/22 10/21/22 10/22/22 23:59 23:59 23:59 Intake Total 1264 / 1514 821.85 / 1071.85 500 / 500 Output Total 800 / 800 Balance 464 / 714 821.85 / 1071.85 500 / 500 Lab / Micro Data 10/22/22 05:40 10/22/22 05:40 Labs: Laboratory Results - last 24 hr 10/22/22 05:40: WBC 10.5, RBC 4.52 L, Hgb 14.1, Hct 40.7, MCV 90.0, MCH 31.2, MCHC 34.6, RDW Std Deviation 41.0, RDW Coeff of Rodrigue 12.3, Plt Count 182, MPV 11.9, Immature Gran % (Auto) 0.500, Neut % (Auto) 86.4 H, Lymph % (Auto) 6.3 L, [place] % (Auto) 6.7, Eos % (Auto) 0.0, Baso % (Auto) 0.1, Absolute Neuts (auto) 9.1 H, Absolute Lymphs (auto) 0.66 L, Nucleated RBC % 0, Sodium 134 L, Potassium 3.1 L, Chloride 100, Carbon Dioxide 29.0, Anion Gap 5, BUN 21 H, Creatinine 0.82, Estim Creat Clear Calc 105.10, Est GFR (MDRD) Af Amer 126, Est GFR (MDRD) Non-Af 104, BUN/Creatinine Ratio 25.7 H, Glucose 275 H, Calcium 8.9, Total Bilirubin 10.60 H, AST 579 H, ALT 755 H, Alkaline Phosphatase 317 H, C-React Prot Ext Range 52.30 H, Total Protein 6.0 L, Albumin 2.8 L, Globulin 3.2, Albumin/Globulin Ratio 0.9 Radiography Diagnostic Testing: Radiology Impression Cholangiogram 10/19/22 14:00 IMPRESSION: Unremarkable intraoperative cholangiogram. Electronically Signed: Mao Yadav MD at 15:18 EDT , Physical Exam Const oriented x3 and no apparent distress Constitutional Narrative: Persistent jaundice Resp normal respiratory effort GI GI Narrative: Diffuse yellowing of the skin including abdomen. Operative dressings remain intact with minimal strikethrough: Removed there is dried blood between the Steri-Strips?particularly in the subxiphoid port position. Otherwise, the port sites are unremarkable without surrounding erythema or drainage. The patient has tenderness as expected with just mild discomfort near his port sites at the abdominal wall. Assessment & Plan Assessment/Plan (1) Acute cholecystitis: PLAN: 56-year-old male postoperative day 3 for cholecystectomy with intraoperative cholangiography. Patient denies any of the abdominal discomfort with which she presented and appears to simply exhibit expected tenderness related to his incisions. He remains jaundiced with increased bilirubin. GI consulted and they are suspecting autoimmune hepatitis plus minus hemochromatosis. (2) Common bile duct dilatation: PLAN: Patient with mildly dilated common bile duct without evidence of ductal obstruction on cholangiogram. On going work-up (3) Hyperbilirubinemia: PLAN: Now manifesting as jaundice. Bilirubin appears to have stabilized over 10. As above, autoimmune hepatitis with possible hemochromatosis suspected. Patient is pending liver biopsy per GI today. Continue to hold acetaminophen. (4) Transaminitis: PLAN: LFTs are overall downtrending, but bilirubin remains elevated. Liver work-up ongoing with liver biopsy pending per GI today. (5) Acute hepatitis: PLAN: Probable autoimmune hepatitis. Work-up ongoing. Pending liver biopsy this afternoon. However, GI is stated that if patient remains clinically well remainder of work-up could be conducted as an outpatient. (6) Diabetes: PLAN: Patient with increasing blood glucose levels?likely owing to multiple factors including acute stress response as well as exogenous steroids for acute hepatitis. Given current glucose levels are just under 300, I have discussed initiating low-dose insulin sliding scale with patient to try to optimize his postoperative outcome. Plans also discussed with gastroenterology. Both patient and gastroenterology are in favor of this transition so order has been placed for initiation of low-dose insulin sliding scale. Hopefully, patient proved glucose control once stress response is normalized and he is able to discontinue steroid therapy. Charges/Coding Visit Charges Inpatient E&M: 50831 Subs Hosp L2
[2022-10-22] MEDS: Insulin Lispro 100 UNIT/ML INSULN.PEN SC ×2 (11:35→15:16)
[2022-10-22 11:40] LABS: Bedside Glucose 452 mg/dL (74-106)
[2022-10-22 11:51] LABS: Erythrocyte Sedimentation Rate 47 mm/hr (0-20)
--- NOTE | 2022-10-22 12:21 | DCINST_ITS ---
Discharge Instructions Diet Discharge Diet: No restrictions Activity Discharge Activity: May Not Drive (No driving while using narcotic pain medication) and May Shower (Postoperative day 1) May shower in (days): 1 Ice area for (Minutes): 20 Lifting Restrictions: No lifting greater than 15 pounds for 2 weeks after surgery Dressing / Incision Call your doctor if your incision/area has: Continuous Slow Oozing, Increased Pain/ Swelling, Increased Redness, Foul Smelling Discharge and Swelling at the incision site Call your doctor if you observe: Fever of 101 or Higher Remove Dressing in: 1 day (Please leave Steri-Strips intact until they fall off spontaneously or are taken off at your follow-up visit) Cleanse incision/area with: Soap & Water Follow Up Care Please Follow Up With: Darrius Rubalcava MD When: 2 weeks postop Test Results: Test results from this visit will be discussed in further detail at your follow- up appointment, if applicable. Discharge Plan Admission Admit Date/Time: 10/18/22 18:59 Primary Reason for Your Visit: Acute cholecystitis with acute hepatitis Attending Provider: Darrius Rubalcava Primary Care Provider: Nu Ortiz Consulting Providers: Mao Yadav Instructions Patient Instructions: ISRAEL MAHER Biopsy Liver Dc, ISRAEL RN Procedural Sedation Discharge Orders/Prescriptions Prescriptions: New tramadol 50 mg tablet 50 mg PO Q6H PRN (Reason: pain) Qty: 10 0RF Continued ketorolac 10 MG tablet 10 mg PO Q6H PRN (Reason: Pain Score 4-10) Qty: 14 0RF ondansetron 4 MG tablet 4 mg PO Q8H PRN PRN (Reason: Nausea) Qty: 10 0RF tamsulosin 0.4 MG capsule 0.4 mg PO DAILY Qty: 7 0RF multivitamin 1 EACH tablet 1 ea PO DAILY flaxseed oil 1,000 MG capsule 1,000 mg PO DAILY gemfibrozil 600 MG tablet 600 mg PO BIDAC fluticasone propionate 1 SPRAY spray,suspension 1 spray NASAL DAILY loratadine 10 MG tablet 10 mg PO DAILY benazepril-hydrochlorothiazide 1 EACH tablet 0.5 tab PO DAILY ciprofloxacin HCl 500 MG tablet 500 mg PO BID Qty: 6 0RF omega 2-zof-vcs-fish oil [Fish Oil] 1,200 (144-216) mg capsule PO Referrals / Follow Up: Nu Ortiz MD [Primary Care Provider] - Darrius Rubalcava MD [Med Staff - Active Staff] - Within 2 Weeks Ranjith Sarmiento DO [Med Staff - Active Staff] - Within 2 Weeks Disposition Disposition (needs filled in before D/C Order can be placed): Home, Self Care
[2022-10-22] MEDS: Midazolam 2 MG/2 ML Syringe IV (13:21)
[2022-10-22] MEDS: fentaNYL 100 MCG/2 ML Ampul IV (13:21)
[2022-10-22] MEDS: Lidocaine 2% (20 ml mdv) 20 ML Vial INFILT (13:37)
[2022-10-22 15:34] LABS: Bedside Glucose 379 mg/dL (74-106)
[2022-10-22] MEDS: Potassium Chloride Oral Tablet 20 MEQ 60 MEQ PO (15:42)
[2022-10-23 02:28] VITALS: BP 140/76; PULSE 71; RESP 16; TEMP 37.2; O2SAT 96
[2022-10-23] MEDS: Ibuprofen 600 MG Tablet PO (06:30)
[2022-10-23] MEDS: Insulin Lispro 100 UNIT/ML INSULN.PEN SC (06:30)
[2022-10-23 06:53] VITALS: O2SAT 98
[2022-10-23] MEDS: Lisinopril 5 MG Tablet PO (07:23)
[2022-10-23] MEDS: predniSONE 10 MG Tablet 60 MG PO (07:23)
[2022-10-23] MEDS: Fluticasone 0.05% 1 SPRAY NASAL.SRY NASAL (07:24)
[2022-10-23] MEDS: hydroCHLOROthiazide 6.25mg TAB 6.25 MG PO (07:24)
[2022-10-23 08:04] VITALS: BP 136/69; PULSE 70; RESP 16; TEMP 36.6; O2SAT 97
--- NOTE | 2022-10-23 08:10 | DS.PCM_ITS ---
Providers Date of Admission: 10/18/22 Primary Care Physician: Dr. Nu Ortiz MD Consultations 10/19/22 07:49 Consult: Gastroenterology Routine Consulting Provider: [facility] Reason for Consult: Progressive bili elevation EMERGENT Consult: No Notified: Yes Date Notified: 10/19/22 Time Notified: 07:49 Method of Notification: Text 10/22/22 08:58 Consult: Interventional Radiology Routine Consulting Provider: Mao Yadav Reason for Consult: LIVER BIOPSY EMERGENT Consult: Yes MD Notified: Yes Date Notified: 10/22/22 Time Notified: 08:58 Method of Notification: Verbal Reason For Visit: ACUTE CHOLECYSTITIS WITH PANCREATITIS Diagnosis Discharge Diagnosis (1) Acute cholecystitis: Status: Acute Code(s): K81.0 - Acute cholecystitis (2) Common bile duct dilatation: Status: Acute Code(s): K83.8 - Other specified diseases of biliary tract (3) Hyperbilirubinemia: Status: Acute Code(s): E80.6 - Other disorders of bilirubin metabolism (4) Transaminitis: Status: Acute Code(s): R74.01 - Elevation of levels of liver transaminase levels (5) Acute hepatitis: Status: Acute Code(s): B17.9 - Acute viral hepatitis, unspecified Plan: Patient's LFTs remain the same. GI ordered a panel and suspects hepatitis. Continue regular diet and recheck labs tomorrow. Bryson Merritt MD Pager: [facility] [address] [place] [address], [address] [place] [address] Office: (6) Diabetes: Status: Chronic Code(s): E11.9 - Type 2 diabetes mellitus without complications Medications at Discharge Home Medications ketorolac 10 mg tablet 10 mg PO Q6H PRN Pain Score 4-10 #14 tabs 06/04/20 ondansetron 4 mg disintegrating tablet 4 mg PO Q8H PRN PRN Nausea #10 tabs 06/04/20 tamsulosin 0.4 mg capsule 0.4 mg PO DAILY #7 caps 06/04/20 benazepril 10 mg-hydrochlorothiazide 12.5 mg tablet 0.5 tab PO DAILY 06/07/20 flaxseed oil 1,000 mg capsule 1,000 mg PO DAILY 06/07/20 fluticasone propionate 50 mcg/actuation nasal spray,suspension 1 spray NASAL DAILY 06/07/20 gemfibrozil 600 mg tablet 600 mg PO BIDAC 06/07/20 loratadine 10 mg tablet 10 mg PO DAILY 06/07/20 multivitamin 1 ea PO DAILY 06/07/20 ciprofloxacin HCl 500 mg tablet 500 mg PO BID #6 tabs 06/09/20 omega 2-avk-vzv-fish oil 1,200 mg (144 mg-216 mg) capsule (Fish Oil) cap PO general health 10/18/22 tramadol 50 mg tablet 50 mg PO Q6H PRN pain #10 tabs 10/22/22 Hospital Course Operations cholecystecomy Summary of Care Provided Hospital Course: Patient was admitted with abdominal pain and underwent laparoscopic cholecystectomy. Subsequently the patient's LFTs increased and GI was consult ed. The patient underwent liver biopsy. Patient is feeling comfortable this morning and will be discharged home and follow-up with Dr. Sarmiento and Dr. Rubalcava Physical Exam Const oriented x3 and no apparent distress Cardio regular rate and regular rhythm GI soft to palpation and non-tender Weight / BMI Weight Weight: 188 lb 4.8 oz Body Mass Index (BMI) 27.0 ABG / Lab / Microbiology Data 10/22/22 05:40 10/22/22 05:40 Laboratory: Laboratory Results - last 24 hr 10/22/22 05:40: ESR 47 H 10/22/22 11:21: POC Glucose 452 H* 10/22/22 15:11: POC Glucose 379 H Radiography Diagnostic Testing: Radiology Impression Biopsy CT 10/22/22 00:00 IMPRESSION: 1. CT directed core needle biopsy of the liver, using CT image guidance with image documentation as described. 2. Conscious Sedation protocol utilized with independent monitoring. Electronically Signed: Mao Yadav MD at 14:13 EDT , D/C Instructions Discharge Diet: No restrictions May shower in (days): 1 Ice area for (Minutes): 20 Call your doctor if your incision/area has: Continuous Slow Oozing, Increased Pain/ Swelling, Increased Redness, Foul Smelling Discharge and Swelling at the incision site Call your doctor if you observe: Fever of 101 or Higher Cleanse incision/area with: Soap & Water Additional Instructions: Follow-up with Dr. Sarmiento GI Please Follow Up With: Darrius Rubalcava MD When: 2 weeks postop Meaningful Use Info Meaningful Use Diagnoses (Choose all that apply): None applicable Discharge Plan Admission Admit Date/Time: 10/18/22 18:59 Primary Reason for Your Visit: Acute cholecystitis with acute hepatitis Attending Provider: Darrius Rubalcava Primary Care Provider: Nu Ortiz Consulting Providers: Mao Yadav Instructions Patient Instructions: ISRAEL MAHER Biopsy Liver Dc, ISRAEL RN Procedural Sedation Discharge Orders/Prescriptions Prescriptions: New tramadol 50 mg tablet 50 mg PO Q6H PRN (Reason: pain) Qty: 10 0RF Continued ketorolac 10 MG tablet 10 mg PO Q6H PRN (Reason: Pain Score 4-10) Qty: 14 0RF ondansetron 4 MG tablet 4 mg PO Q8H PRN PRN (Reason: Nausea) Qty: 10 0RF tamsulosin 0.4 MG capsule 0.4 mg PO DAILY Qty: 7 0RF multivitamin 1 EACH tablet 1 ea PO DAILY flaxseed oil 1,000 MG capsule 1,000 mg PO DAILY gemfibrozil 600 MG tablet 600 mg PO BIDAC fluticasone propionate 1 SPRAY spray,suspension 1 spray NASAL DAILY loratadine 10 MG tablet 10 mg PO DAILY benazepril-hydrochlorothiazide 1 EACH tablet 0.5 tab PO DAILY ciprofloxacin HCl 500 MG tablet 500 mg PO BID Qty: 6 0RF omega 0-sut-iom-fish oil [Fish Oil] 1,200 (144-216) mg capsule PO Referrals / Follow Up: Nu Ortiz MD [Primary Care Provider] - Darrius Rubalcava MD [Med Staff - Active Staff] - Within 2 Weeks Ranjith Sarmiento DO [Med Staff - Active Staff] - Within 2 Weeks Disposition Disposition (needs filled in before D/C Order can be placed): Home, Self Care
[2022-10-23 09:08] LABS: HEPATITIS B SURFACE AG Negative (Negative); Hep C Antibodies Non Reactive (Non Reactive); Hepatitis A IgM Antibody Negative (Negative); Hepatitis B Core AB IgM Negative (Negative)
[2022-10-23 21:04] LABS: Bedside Glucose 253 mg/dL (74-106)
[2022-10-24 12:08] LABS: Anti-Centromere B Ab <0.2 AI (0.0-0.9); Anti-Chromatin <0.2 AI (0.0-0.9); Anti-Jo <0.2 AI (0.0-0.9); Anti-Scleroderma-70 AB <0.2 AI (0.0-0.9); Anti-dsDNA Ab 1 IU/mL (0-9); RNP Ab <0.2 AI (0.0-0.9); SJOGREN'S Anti-SS-A test < 0.2 AI (0.0-0.9); SJOGREN'S Anti-SS-B test < 0.2 AI (0.0-0.9); Smith Ab <0.2 AI (0.0-0.9)
[2022-10-24 14:08] LABS: Anti-Mitochondrial AB <20.0 Units (0.0-20.0); Anti-Smooth Muscle ABS 2 Units (0-19)
[2022-10-25 15:08] LABS: Albumin 3.1 g/dL (2.9-4.4); Alpha-1-Globulins 0.4 g/dL (0.0-0.4); Alpha-2-Globulins 0.8 g/dL (0.4-1.0); CMV Acute Antibody IgM < 30.0 AU/mL (0.0-29.9); Cytoplasmic Ab (C-ANCA) <1:20 titer (Neg:<1:20); EBV Acute VCA IgM < 36.0 U/mL (0.0-35.9); EBV-VCA IgG > 600.0 U/mL (0.0-17.9); Gamma Globulin 0.6 g/dL (0.4-1.8); IgG, Quant 579 mg/dL (603-1613); Immunoglobulin A 89 mg/dL (90-386); Immunoglobulin G, Subclass 1 304 mg/dL (248-810); Immunoglobulin G, Subclass 2 203 mg/dL (130-555); Immunoglobulin G, Subclass 3 28 mg/dL (15-102); Immunoglobulin G, Subclass 4 19 mg/dL (2-96); Immunoglobulin M 47 mg/dL (20-172); PARVOVIRUS B19 IGM 0.2 index (0.0-0.8); PROEL- TOTAL PROTEIN 5.9 g/dL (6.0-8.5); Perinuclear Ab (P-ANCA) <1:20 titer (Neg:<1:20); Transferrin 231 mg/dL (177-329)
== END 2022-10-23 11:50 | disposition home or self-care (01) | DRG 417 ==
LOC: ED 17:55 → MS3 19:30
PROVIDERS: Anesthesiology; Internal Medicine Gastroenterology; Surgery; Admitting Provider Surgery; Emergency Provider Emergency Medicine; PCP Internal Medicine; Visit Provider Surgery
PROC: 0FT44ZZ Resection of Gallbladder, Percutaneous Endoscopic Approach (ICD-10-PCS; CPT 47610; principal; 2022-10-19 09:45)
DX: K81.2 Acute cholecystitis with chronic cholecystitis (principal); K85.10 Biliary acute pancreatitis without necrosis or infection; B18.8 Other chronic viral hepatitis; K75.81 Nonalcoholic steatohepatitis (NASH); I10 Essential (primary) hypertension; E78.00 Pure hypercholesterolemia, unspecified; Z79.899 Other long term (current) drug therapy
CPT/HCPCS: 36415; 74177; 74300; 76000; 76705; 77012; 80048; 80053; 80074; 80076; 81001; 82140; 82550; 82728; 82784; 82787; 82962; 83036; 83516; 83540; 83550; 83605; 83615; 83690; 83735; 84100; 84165; 84466; 85025; 85610; 85652; 85730; 86140; 86225; 86235; 86256; 86334; 86644; 86645; 86664; 86665; 86747; 88304; 88307; 88313; 93005; 94668; 99156; 99284; J7030; J7050; Q9967; A4216; J1940; J2405; J3490

== ENCOUNTER → 2023-04-19 | Outpatient (CLI) | payer BC, SELFPAY ==
--- OUTSIDE RECORDS SUMMARY | 2023-04-19 07:52 | XMS RPT_ITS | CCD ---
Author Name Unknown Address [address] [place] [address] Organization [facility] Care Team Providers Care Automatic Vulcanizing Lead Operator Name Role Phone Angel HOUSE, Molly Ruiz Primary Care Provider TALAMPAS, MOLLY D Primary Care Unavailable TALAMPAS, MOLLY D Referring Unavailable TALAMPAS, MOLLY D Primary Care Unavailable TALAMPAS, MOLLY D Attending Unavailable TALAMPAS, MOLLY D Attending Unavailable TALAMPAS, MOLLY D Primary Care Unavailable TALAMPAS, MOLLY D Primary Care Unavailable TALAMPAS, MOLLY D Referring Unavailable TALAMPAS, MOLYL D Attending Unavailable TALAMPAS, MOLLY D Primary Care Unavailable TALAMPAS, MOLLY D Referring Unavailable TALAMPAS, MOLLY D Primary Care Unavailable TALAMPAS, MOLLY D Primary Care Unavailable TALAMPAS, MOLLY D Attending Unavailable TALAMPAS, MOLLY D Primary Care Unavailable TALAMPAS, MOLLY D Primary Care Unavailable TALAMPAS, MOLLY D Referring Unavailable TALAMPAS, MOLLY D Primary Care Unavailable Allergies Allergy Classification Reported Allergen(s) Allergy Type Date of Onset Reaction(s) Facility (10 sources) melanie ruiz [Other] Propensity to adverse reactions [address] [place] [address] Work Phone: (1 source) OTHER; Translations: [OTHER] Propensity to adverse reactions (disorder) [address] [place] [address] Repository Medications Completed/Discontinued Medications Medication Drug Class(es) Dates Sig (Normalized) Sig (Original) benazepril hydrochloride 10 mg / hydroCHLOROthiazide 12.5 mg oral tablet (11 sources) Thiazide Diuretic, Angiotensin Converting Enzyme Inhibitor Start: 07-09-2022 take 1 tablet by mouth once daily Benazepril-hydr oCHLOROthiazide 10-12.5 mg per tablet Take 1 tablet by mouth once daily. 90 tablet 3 07/09/2022 Active Problems Active Problems Problem Classification Problem Date Documented Date Episodic/Chronic Calculus of urinary tract (1 source) Kidney stone; Translations: [Calculus of kidney] Episodic Diabetes mellitus with complications (2 sources) Type 2 diabetes mellitus; Translations: [Type 2 diabetes mellitus with hyperglycemia] Onset: 11-02-2022 03-22-2023 Chronic Diabetes mellitus without complication (17 sources) Type 2 diabetes mellitus without complication; Translations: [Type 2 diabetes mellitus without complications] Onset: 03-26-2017 Chronic Disorders of lipid metabolism (15 sources) Mixed hyperlipidemia; Translations: [Mixed hyperlipidemia] Onset: 03-23-2015 Chronic Essential hypertension (16 sources) Essential hypertension; Translations: [Essential (primary) hypertension] Onset: 03-23-2015 Chronic Hepatitis (15 sources) Nonalcoholic steatohepatitis; Translations: [Nonalcoholic steatohepatitis (HERNADEZ)] Onset: 05-14-2018 Chronic Hepatitis (2 sources) Acute viral hepatitis, unspecified; Translations: [Acute viral hepatitis, unspecified viral hepatitis type] Onset: 03-25-2023 Episodic Immunizations and screening for infectious disease (2 sources) Vaccination needed; Translations: [Encounter for immunization] Onset: 04-01-2023 Episodic Other aftercare (2 sources) Patient encounter status; Translations: [Other terminal operator (current) drug therapy] Episodic Other nutritional; endocrine; and metabolic disorders (6 sources) Hereditary hemochromatosis; Translations: [Hereditary hemochromatosis] Onset: 10-26-2022 10-26-2022 Chronic Other nutritional; endocrine; and metabolic disorders (1 source) Hemochromatosis, unspecified; Translations: [Hemochromatosis, unspecified hemochromatosis type] Onset: 03-25-2023 Chronic Other nutritional; endocrine; and metabolic disorders (1 source) Hereditary hemochromatosis; 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)] Onset: 10-26-2022 Chronic Other upper respiratory disease (10 sources) Allergic rhinitis; Translations: [Allergic rhinitis, unspecified] Onset: 06-04-2008 08-31-2015 Chronic Past or Other Problems Problem Classification Problem Date Documented Da te Episodic/Chronic Diabetes mellitus without complication (10 sources) Impaired fasting glycemia; Translations: [Impaired fasting glucose] Onset: 08-31-2015 08-31-2015 Episodic Other aftercare (1 source) Other detention (current) drug therapy; Translations: [Encounter for long-term current use of medication] Onset: 11-14-2022 Episodic Other aftercare (2 sources) roasterman (current) use of insulin; Translations: [Type 2 diabetes mellitus with hyperglycemia, with long-term current use of insulin (HCC)] Onset: 03-26-2017 Episodic Other gastrointestinal disorders (1 source) Personal history of other diseases of the digestive system; Translations: [History of acute cholecystitis] Onset: 11-02-2022 Episodic Other screening for suspected conditions (not mental disorders or infectious disease) (20 sources) Protein level - finding; Translations: [Other specified abnormal findings of blood chemistry] Onset: 06-04-2008 Episodic Pancreatic disorders (not diabetes) (1 source) Biliary acute pancreatitis without necrosis or infection; Translations: [Acute biliary pancreatitis, unspecified complication status] Onset: 11-02-2022 Episodic Results Test Name Value Interpretation Reference Range Facil ity Vital Signs Date Time Vital Sign Value Performing Clinician Faci lity 10-26-2022 16:32-0400 Diastolic blood pressure 60 mm[Hg] Molly Ortiz MD Work Phone: [facility] 10-26-2022 16:32-0400 Systolic blood pressure 138 mm[Hg] Molly Ortiz MD Work Phone: [facility] 10-26-2022 15:22-0400 Body temperature 98.6 [degF] Molly Ortiz MD Work Phone: [facility] 10-26-2022 15:22-0400 Body weight 82.56 kg Molly Ortiz MD Work Phone: [facility] 10-26-2022 15:22-0400 Heart rate 89 /min Molly Ortiz MD Work Phone: [facility] 10-26-2022 15:22-0400 Respiratory rate 18 /min Molly Ortiz MD Work Phone: [facility] 10-26-2022 15:22-0400 SaO2% (BldA) [Mass fraction] 97 % Molly Ortiz MD Work Phone: [facility] 07-04-2022 16:49-0400 Body temperature 97.81 [degF] Molly Ortiz MD Work Phone: [facility] 07-04-2022 16:49-0400 Body weight 85.73 kg Molly Ortiz MD Work Phone: [facility] 07-04-2022 16:49-0400 Diastolic blood pressure 66 mm[Hg] Molly Ortiz MD Work Phone: [facility] 07-04-2022 16:49-0400 Heart rate 82 /min Molly Ortiz MD Work Phone: [facility] 07-04-2022 16:49-0400 Respiratory rate 18 /min Molly Ortiz MD Work Phone: [facility] 07-04-2022 16:49-0400 SaO2% (BldA) [Mass fraction] 98 % Molly Ortiz MD Work Phone: [facility] 07-04-2022 16:49-0400 Systolic blood pressure 132 mm[Hg] Molly Ortiz MD Work Phone: [facility] 03-05-2022 17:21-0500 Diastolic blood pressure 60 mm[Hg] Molly Ortiz MD Work Phone: [facility] 03-05-2022 17:21-0500 Systolic blood pressure 138 mm[Hg] Molly Ortiz MD Work Phone: [facility] 03-05-2022 16:30-0500 Body weight 83.01 kg Molly Ortiz MD Work Phone: [facility] 03-05-2022 16:30-0500 Heart rate 76 /min Molly Ortiz MD Work Phone: [facility] 03-05-2022 16:30-0500 SaO2% (BldA) [Mass fraction] 97 % Molly Ortiz MD Work Phone: [facility] 11-15-2021 15:10-0400 Body weight 86.18 kg Molly Ortiz MD Work Phone: [facility] 11-15-2021 15:10-0400 Diastolic blood pressure 62 mm[Hg] Molly Ortiz MD Work Phone: [facility] 11-15-2021 15:10-0400 Heart rate 75 /min Molly Ortiz MD Work Phone: [facility] 11-15-2021 15:10-0400 SaO2% (BldA) [Mass fraction] 97 % Molly Ortiz MD Work Phone: [facility] 11-15-2021 15:10-0400 Systolic blood pressure 126 mm[Hg] Molly Ortiz MD Work Phone: [facility] Encounters Encounter Date Encounter Type Care Provider Facility Start: 04-01-2023 End: 04-02-2023 ambulatory MOLLY ORTIZ Facility:[facility] Start: 03-25-2023 End: 03-26-2023 ambulatory MOLLY ORTIZ Facility:[facility] Start: 03-22-2023 Telephone encounter Molly cooper MD Work Phone: [facility] Procedures Date Procedure Procedure Detail Performing Clinician Start: 01-18-2023 [employer] COVI D-19 VACCINE (2022- SEASON) AGE 12+ YR Molly Ortiz MD Work Phone: Start: 01-18-2023 INFLUENZA VACCINE, A GE 6 MO - 64 YR, QUADRIVALENT (AFLURIA, FLULAVAL, FLUZONE) Molly Ortiz MD Work Phone: Start: 05-21-2018 Laboratory test resu lt abnormal 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 Molly Ortiz MD Work Phone: Plan of Treatment Date Care Activity Detail Author Start: 07-23-2024 COLOGUARD (FIT-DNA) COLOGUARD (FIT-D NA) [facility] Start: 07-23-2024 COLORECTAL CANCER SCREENING COLORECTAL CANCER SCREENING [facility] Start: 11-15-2023 Hepatitis B screening URINE AL BUMIN:CREATININE RATIO [facility] Start: 11-15-2023 Hepatitis B surface antibody level LDL CHOLESTEROL [facility] Start: 11-03-2023 ANNUAL PCP TEAM SENIOR BUYER CHLOE DISEASE VISIT ANNUAL PCP TEAM CHRONIC DISEASE VISIT [facility] Start: 10-27-2023 ANNUAL PCP TEAM SENIOR BUYER CHLOE DISEASE VISIT ANNUAL PCP TEAM CHRONIC DISEASE VISIT [facility] Start: 07-05-2023 ANNUAL PCP TEAM SENIOR BUYER CHLOE DISEASE VISIT ANNUAL PCP TEAM CHRONIC DISEASE VISIT [facility] Start: 06-30-2023 Hepatitis B surface antibody level LDL CHOLESTEROL [facility] Start: 05-17-2023 Hemoglobin A1c/Hemoglobin.total in Blood HBA1C [facility] Start: 04-30-2023 Hepatitis C antibody , confirmatory test DILATED RETINAL EXAM [facility] Start: 03-05-2023 ANNUAL PCP TEAM SENIOR BUYER CHLOE DISEASE VISIT ANNUAL PCP TEAM CHRONIC DISEASE VISIT [facility] Start: 03-02-2023 Hepatitis B surface antibody level LDL CHOLESTEROL [facility] Start: 12-30-2022 Hemoglobin A1c/Hemoglobin.total in Blood HBA1C [facility] Start: 12-21-2022 Influenza vaccination INFLUENZA (#1) [facility] Start: 11-15-2022 ANNUAL PCP TEAM SENIOR BUYER CHLOE DISEASE VISIT ANNUAL PCP TEAM CHRONIC DISEASE VISIT [facility] Start: 11-15-2022 BP CONTROLLED (<130/80) BP CONTROLLE D (<130/80) [facility] Start: 11-15-2022 HEPATITIS B (1 of 3 - 3-dose series) HEPATITIS B (1 of 3 - 3-dose series) [facility] Immunizations Immunization Date Immunization Notes Care Provider Fa cility 01-18-2023 COVID-19 vaccine, ag e 12+ yr, season ([employer]) Immunization [facility] Work Phone: [facility] Work Phone: 01-18-2023 influenza, injectabl e, quadrivalent, contains preservative Immunization [facility] Work Phone: [facility] Work Phone: 03-05-2022 zoster vaccine recombinant Molly Ortiz MD Work Phone: [facility] 01-28-2022 COVID-19 booster vaccine, age 12+ yr, bivalent (MODERNA) Molly Ortiz MD Work Phone: [facility] Work Phone: 01-28-2022 Influenza, injectabl e, Madin Jeannine Canine Kidney, preservative free, quadrivalent Molly Ortiz MD Work Phone: [facility] 01-28-2022 Seasonal, trivalent, recombinant, injectable influenza vaccine, preservative free Molly Ortiz MD Work Phone: [facility] Work Phone: 11-15-2021 zoster vaccine recombinant Molly Ortiz MD Work Phone: [facility] 08-27-2021 COVID-19 original vaccine, full dose, monovalent (MODERNA) Molly Ortiz MD Work Phone: [facility] 03-19-2021 COVID-19 original vaccine, booster dose, monovalent (MODERNA) Molly Ortiz MD Work Phone: [facility] Work Phone: 02-09-2021 influenza virus vaccine, unspecified formulation Molly Ortiz MD Work Phone: [facility] 08-04-2020 COVID-19 original vaccine, full dose, monovalent (MODERNA) Molly Ortiz MD Work Phone: [facility] Work Phone: 07-07-2020 COVID-19 original vaccine, full dose, monovalent (MODERNA) Molly Ortiz MD Work Phone: [facility] Work Phone: 01-30-2020 influenza, injectabl e, quadrivalent, contains preservative Molly Ortiz MD Work Phone: [facility] 02-08-2019 influenza virus vaccine, unspecified formulation Molly Ortiz MD Work Phone: [facility] 02-04-2018 influenza, injectabl e, quadrivalent, contains preservative Molly Ortiz MD Work Phone: [facility] 02-04-2018 influenza, seasonal, injectable Molly Ortiz MD Work Phone: [facility] 01-28-2017 influenza, injectabl e, quadrivalent, contains preservative Molly Ortiz MD Work Phone: [facility] 01-28-2017 influenza, seasonal, injectable Molly Ortiz MD Work Phone: [facility] 02-03-2016 influenza, seasonal, injectable Molly Ortiz MD Work Phone: [facility] 02-02-2015 influenza, seasonal, injectable Molly Ortiz MD Work Phone: [facility] 04-01-2012 tetanus toxoid, redu denisse diphtheria toxoid, and acellular pertussis vaccine, adsorbed Molly Ortiz MD Work Phone: [facility] 02-05-2012 influenza virus vaccine, unspecified formulation Molly Ortiz MD Work Phone: [facility] 06-13-2011 pneumococcal polysaccharide vaccine, 23 valent Molly Ortiz MD Work Phone: [facility] 04-11-2009 novel [id number], preservative-free, injectable Molly Ortiz MD Work Phone: [facility] Payers Date Payer Category Payer Unknown [id number] 2015 Unknown [id number] Social History Date Type Detail Facility Start: 04-09-2017 End: 03-05-2022 Tobacco smoking status NHIS Never smoked tobacco [facility] Start: 04-09-2017 End: 03-05-2022 Tobacco use and exposure Smokeless tobacco non-user [facility] Start: 11-04-2020 End: 11-02-2022 Alcohol intake Current non-drinker of alcohol (finding) [facility] Start: 11-10-2019 End: 06-30-2020 History SDOH Alcohol Frequency 1 [facility] Start: 11-10-2019 End: 03-03-2020 History SDOH Alcohol Std Drinks 98 [facility] Start: 11-10-2019 End: 03-03-2020 History SDOH Social Connections Phone 5 [facility] Start: 11-10-2019 End: 03-03-2020 History SDOH Social Connections [facility] Start: 11-10-2019 End: 06-30-2020 History SDOH Transport Med 2 [facility] Start: 11-10-2019 Education 16 [facility] Start: 1965 Sex Assigned At Male [facility] Start: 11-05-2021 End: 03-05-2022 Exposure to SARS-CoV-2 (event) Not sure [facility] Start: 03-03-2020 End: 10-25-2022 History of Social function [facility] Start: 03-03-2020 End: 10-25-2022 Social connection and isolation panel [facility] How often do you get together with friends or relatives? Patient refused [facility] How often to you hav e a drink containing alcohol? Never [facility] Do you feel stress - tense, restless, nervous, or anxious, or unable to sleep at night because your mind is troubled all the time - these days [OSQ] Not at all [facility] (I/We) worried wheth er (my/our) food would run out before (I/we) got money to buy more. Never true [facility] In the past 12 month s, was there a time when you were not able to pay the mortgage or rent on time? No [facility] Start: 11-03-2020 Gender identity Identifies as male gender (finding) [facility] Start: 11-03-2020 Sexual orientation Heterosexual (wiliam malik) [facility] Medical Equipment Procedure Code Equipment Code Equipment Origin al Text Equipment Identifier Dates Start: 10-24-2022 Clinical Notes 01-05-2011 to 03-23-2023 Telephone Encounter - Steph Garsia RN - 03/23/2023 8:31 AM ESTTelephone Encounter - Roxie Ware - 03/23/2023 8:25 AM ESTTelephone Encounter - Molly Ortiz MD - 03/22/2023 8:31 PM EST Note Date & Type Note Facility 03-23-2023 Miscellaneous Notes Spoke with patient. Given message from provider's office. Patient verbalizes understanding. Steph Garsia RN Left message to return call Roxie Ware MA Filed as standing orders so may get up to every 3 months Patient calls and states that he has appointment scheduled with provider on 04/01/2023. Patient would like to get labs done on 03/26/2023 and asking if orders can be placed for this? Please review and advise, Traci Jordan RN documented in this encounter [facility] 11-14-2022 Miscellaneous Notes Pt calling and asking if we could please fax lab results to Dr. Sarmiento's office at [phone]. They see that the lab report is back. Also given Dr. Ortiz results and instructions. Pt verbalizes understanding. Faxing lab results to Dr. Sarmiento now. Let them know CMP and CBC are done since can do here at [facility] [place] but rest if labs still in process since sent to [facility] lab. I pulled up CMP and CBC with results going back to 11/07/21 to fax as requested to Dr. Zavala. Noted that potassium is a little low at 3.5 (improved from 3.1 at [facility]) LFTs showed elevated of total bilirubin and Alk phos and AST and ALT. Last bilirubin at [facility] was 10.60 on 10/22 Albumin was 2.8 Alk Phos 317 ALT 755 AST 579 Added result note--make sure patient able to see. Can check in a month or so to make sure continuing to improve; will see what rest of labs show before deciding when to get next labs Patient Romina be is going to do lab work tomorrow morning. He had seen Dr Sarmiento and he wanted LFT's done. Since PCP has order for CMP already asking for the results when comes back to be faxed to Dr Sarmiento office at [phone]. is asking if my chart message could be sent to let them know the CMP had been faxed please. documented in this encounter [facility] 11-02-2022 Note HNO ID: [id number] Author: Molly Ortiz MD Service: ? Author Type: Physician Type: Progress Notes Filed: 12/03/2022 12:46 AM Note Text: This note was created using RIVS. Subjective Nelli Denton is a 56 year old male. Patient presents with: F/U 6 months SUBJECTIVE: Nelli Denton is a 56 year old year old gentleman here today for follow up appointment for review of medical conditions. CGM Freestyle Neil applied today. Blood sugars Fine when wakes up. Lantus at bedtime 14 units now Using current SSI. Up to 203 to 293 before lunch One 326 before dinner but down by bedtime. Prednisone decreased every Saturday--down to 50 mg daily. Noted lab results including viral labs. Able to keep up nutrition. Exhausted after prednisone. Needs to take a nap for 2 hours. PAST MEDICAL HISTORY Diagnosis Date Allergic rhinitis, cause unspecified 06/04/2008 Dr. Linares. Dermatophytosis of the body Dysmetabolic syndrome X 06/04/2008 IFG (impaired fasting glucose) Obesity, unspecified Other and unspecified hyperlipidemia Type II or unspecified type diabetes mellitus without mention of complication, not stated as uncontrolled 01/05/2011 resolved by August 2015 with no fasting glucose >= 126 or HgA1C>=6.5 Unspecified essential hypertension Unspecified sleep apnea Current Outpatient Medications Medication Sig predniSONE (DELTASONE) 10 mg tablet Take 50 mg by mouth once daily. Taper from 60mg down to 0mg. flash glucose sensor (FREESTYLE NEIL 2 SENSOR) kit Apply new sensor every fourteen (14) days to upper arm. blood sugar diagnostic (FREESTYLE LITE STRIPS) test strip Test blood sugar(s) up to 4 times daily. Dx: Type 2 DM - Uncontrolled E11.65 Insulin: Yes Dispense if reader for Freestyle Neil 2 can use these test strips insulin glargine (LANTUS SOLOSTAR U-100 INSULIN) 100 unit/mL (3 mL) Inject 10-30 Units subcutaneously daily at bedtime. As directed (Patient taking differently: Inject 14 Units subcutaneously daily at bedtime. As directed) insulin lispro (HUMALOG KWIKPEN INSULIN) 100 unit/mL Inject 4 Units subcutaneously three times daily before meals. Will titrate up as needed up to 40 units per day insulin needles, DISPOSABLE, (PEN NEEDLE) 31 gauge x 5/16 Use one needle per dose. 4 per day. Benazepril-hydroCHLOROthiazide 10-12.5 mg per tablet Take 1 tablet by mouth once daily. Potassium Citrate 15 mEq TbER Take 1 tablet by mouth twice daily. gemfibrozil (LOPID) 600 mg tablet Take 1 tablet by mouth twice daily. fluticasone (FLONASE) 50 mcg/actuation nasal spray Use 2 Sprays in each nostril once daily. loratadine (CLARITIN) 10 mg tablet Take 1 tablet by mouth once daily. CPAP Initiate Auto PAP @ 5-20 cm of water with humidification. Mask (per patient preference) optional chin strap (if indicated) , filters, tubing, humidifier and lifetime supplies. CPAP Needs new APAP @ cm of water with humidification. Mask (per patient preference) optional chin strap (if indicated) , filters, tubing, humidifier and lifetime supplies. Diagnosis: SOLO G47.33 Methylcellulose, Laxative, 500 mg tab Take by mouth. MULTIVITAMIN TAB Take one(1) tablet daily. Fish Oil-DHA-EPA 1,200-144-216 mg cap Take 2 capsules by mouth once daily. (Patient not taking: Reported on 10/26/2022) No current facility-administered medications for this visit. Review of Systems Objective BP 138/72 Pulse 79 Temp 36.6 ?C (97.8 ?F) Resp 18 Wt 80.7 kg (178 lb) SpO2 97% BMI 26.48 kg/m? Last 5 Encounter Wt Readings: Date: Wt: 11/02/2022 80.7 kg (178 lb) 10/26/2022 82.6 kg (182 lb) 07/04/2022 85.7 kg (189 lb) 03/05/2022 83 kg (183 lb) 11/15/2021 86.2 kg (190 lb) No waist measurement recorded Estimated body mass index is 26.48 kg/m? as calculated from the following: Height as of 03/26/17: 174.6 cm (5' 8.75 ). Weight as of this encounter: 80.7 kg (178 lb). Last 5 Encounter BP Readings: Date: BP: 11/02/2022 138/72 10/26/2022 138/60 07/04/2022 132/66 03/05/2022 138/60 11/15/2021 126/62 Physical Exam Vitals reviewed. Constitutional: Appearance: Normal appearance. Eyes: General: No scleral icterus. Conjunctiva/sclera: Conjunctivae normal. Cardiovascular: Rate and Rhythm: Normal rate and regular rhythm. Heart sounds: Normal heart sounds. Pulmonary: Effort: Pulmonary effort is normal. Breath sounds: Normal breath sounds. Skin: General: Skin is warm and dry. Comments: Decreased jaundice Neurological: General: No focal deficit present. Mental Status: He is alert and oriented to person, place, and time. Psychiatric: Mood and Affect: Mood normal. Behavior: Behavior normal. Thought Content: Thought content normal. Judgment: Judgment normal. Reviewed results of labs EBV titers, CMV and Parvovirus--appears to consistent with prior infection, not acute Assessment and Plan Encounter Diagnosis ICD-10-CM 1. Type 2 diabetes mellitus with h (more content not included)... [facility] 10-26-2022 Note HNO ID: [id number] Author: Molly Ortiz MD Service: ? Author Type: Physician Type: Progress Notes Filed: 12/02/2022 9:01 PM Note Text: This note was created using [employer]. Subjective Nelli Denton is a 56 year old male. HISTORY Nelli Denton is a 56 year old gentleman here for hospital follow up appointment for issues with DM and hyperglycemia. Had common bile duct stone with acute pancreatitis. Still waiting for results of pathology. Seen by Dr. Sarmiento. Issues with hemochromatosis were discussed as well as treatment for possible autoimmune hepatitis.Reason for steroids which have driven up blood sugar. Sugars going up but had been better in the AM. Prednisone 60mg shoots sugars up to 377 before lunch today. Was 208 in AM. Having seats too. Yesterday was 255 fasting and went up to 489 after prednisone. 372 before supper. 389 at bedtime. Feeling really hungry. Losing weigh. Started Lantus last night and took insulin with meals. Was on insulin in the hospital. Not discharged on any when sent home. No pain since sent home. Was sent home on tramadol. Got off pain meds when home. Interested in CGM since needing to check sugars so often. PAST MEDICAL HISTORY Diagnosis Date Allergic rhinitis, cause unspecified 06/04/2008 Dr. Linares. Dermatophytosis of the body Dysmetabolic syndrome X 06/04/2008 IFG (impaired fasting glucose) Obesity, unspecified Other and unspecified hyperlipidemia Type II or unspecified type diabetes mellitus without mention of complication, not stated as uncontrolled 01/05/2011 resolved by August 2015 with no fasting glucose >= 126 or HgA1C>=6.5 Unspecified essential hypertension Unspecified sleep apnea Current Outpatient Medications Medication Sig predniSONE (DELTASONE) 10 mg tablet Take 60 mg by mouth once daily. Taper from 60mg down to 0mg. insulin glargine (LANTUS SOLOSTAR U-100 INSULIN) 100 unit/mL (3 mL) Inject 10-30 Units subcutaneously daily at bedtime. As directed insulin lispro (HUMALOG KWIKPEN INSULIN) 100 unit/mL Inject 4 Units subcutaneously three times daily before meals. Will titrate up as needed up to 40 units per day insulin needles, DISPOSABLE, (PEN NEEDLE) 31 gauge x 09/04 Use one needle per dose. 4 per day. Benazepril-hydroCHLOROthiazide 10-12.5 mg per tablet Take 1 tablet by mouth once daily. Potassium Citrate 15 mEq TbER Take 1 tablet by mouth twice daily. gemfibrozil (LOPID) 600 mg tablet Take 1 tablet by mouth twice daily. fluticasone (FLONASE) 50 mcg/actuation nasal spray Use 2 Sprays in each nostril once daily. loratadine (CLARITIN) 10 mg tablet Take 1 tablet by mouth once daily. CPAP Initiate Auto PAP @ 5-20 cm of water with humidification. Mask (per patient preference) optional chin strap (if indicated) , filters, tubing, humidifier and lifetime supplies. CPAP Needs new APAP @ cm of water with humidification. Mask (per patient preference) optional chin strap (if indicated) , filters, tubing, humidifier and lifetime supplies. Diagnosis: SOLO G47.33 Methylcellulose, Laxative, 500 mg tab Take by mouth. MULTIVITAMIN TAB Take one(1) tablet daily. Fish Oil-DHA-EPA 1,200-144-216 mg cap Take 2 capsules by mouth once daily. (Patient not taking: Reported on 10/26/2022) No current facility-administered medications for this visit. ALLERGIES Allergen Reactions Melanie Ruiz [Other] FAMILY HISTORY Problem Relation Age of Onset Coronary Artery Disease Father age 54 Diabetes Father Heart Mother Hypertension Mother Arthritis Mother fibromyalgia Diabetes Paternal Grandfather Social History Tobacco Use Smoking status: Never Smokeless tobacco: Never Substance Use Topics Alcohol use: No Drug use: No Review of Systems Objective BP 158/68 Pulse 89 Temp 37 ?C (98.6 ?F) Resp 18 Wt 82.6 kg (182 lb) SpO2 97% BMI 27.07 kg/m? Physical Exam Vitals reviewed. Constitutional: Appearance: Normal appearance. Eyes: General: Scleral icterus present. Cardiovascular: Rate and Rhythm: Normal rate and regular rhythm. Heart sounds: Normal heart sounds. Pulmonary: Effort: Pulmonary effort is normal. Breath sounds: Normal breath sounds. Abdominal: Palpations: Abdomen is soft. Tenderness: There is no abdominal tenderness. Comments: Healing sites from lap jerman Skin: General: Skin is warm and dry. Coloration: Skin is jaundiced. Neurological: General: No focal deficit present. Mental Status: He is alert and oriented to person, place, and time. Psychiatric: Mood and Affect: Mood normal. Behavior: Behavior normal. Thought Content: Thought content normal. Judgment: Judgment normal. Assessment and Plan Encounter Diagnosis ICD-10-CM 1. Type 2 diabetes mellitus without complication, with long-term current use of insulin ([facility]) E11.9 flash glucose scanning reader (FREESTYLE NEIL 2 READER) Z79.4 flash glucose sensor (FREESTYLE NEIL 2 SENSOR) kit 2. (more content not included)... [facility] 10-26-2022 Instructions Molly Ortiz MD - 10/26/2022 3:58 PM EDT Lantus increase to 12 units tonight. Would increase dose every 3 days as needed for sugars over 200. If sugars start getting too low in the morning, decrease Lantus dosage by 2 to 3 units. Continue 4 units with meals since that keeps sugars even. If sugars prior to meals is under 100, hold insulin. Sliding scale insulin for sugars before meals--add to the 4 units with meals. Under 200, do not need to add 200-250 Add 1 unit 251-300 Add 2 units 301-350 Add 3 units 351-400 Add 4 units 401-450 Add 6 units over 450 Add 8 units and notify MD Hold Gemfbrozil till discuss with Dr. Sarmiento if okay to stay on. documented in this encounter [facility] 10-26-2022 History of Presen t illness Narrative This note was created using Vidyard[employer]. Subjective Nelli Denton is a 56 year old male. HISTORY Nelli Denton is a 56 year old gentleman here for hospital follow up appointment for issues with DM and hyperglycemia. Had common bile duct stone with acute pancreatitis. Still waiting for results of pathology. Seen by Dr. Sarmiento. Issues with hemochromatosis were discussed as well as treatment for possible autoimmune hepatitis.Reason for steroids which have driven up blood sugar. Sugars going up but had been better in the AM. Prednisone 60mg shoots sugars up to 377 before lunch today. Was 208 in AM. Having seats too. Yesterday was 255 fasting and went up to 489 after prednisone. 372 before supper. 389 at bedtime. Feeling really hungry. Losing weigh. Started Lantus last night and took insulin with meals. Was on insulin in the hospital. Not discharged on any when sent home. No pain since sent home. Was sent home on tramadol. Got off pain meds when home. Interested in CGM since needing to check sugars so often. PAST MEDICAL HISTORY Diagnosis Date Allergic rhinitis, cause unspecified 06/04/2008 Dr. Linares. Dermatophytosis of the body Dysmetabolic syndrome X 06/04/2008 IFG (impaired fasting glucose) Obesity, unspecified Other and unspecified hyperlipidemia Type II or unspecified type diabetes mellitus without mention of complication, not stated as uncontrolled 01/05/2011 resolved by August 2015 with no fasting glucose >= 126 or HgA1C>=6.5 Unspecified essential hypertension Unspecified sleep apnea Current Outpatient Medications Medication Sig predniSONE (DELTASONE) 10 mg tablet Take 60 mg by mouth once daily. Taper from 60mg down to 0mg. insulin glargine (LANTUS SOLOSTAR U-100 INSULIN) 100 unit/mL (3 mL) Inject 10-30 Units subcutaneously daily at bedtime. As directed insulin lispro (HUMALOG KWIKPEN INSULIN) 100 unit/mL Inject 4 Units subcutaneously three times daily before meals. Will titrate up as needed up to 40 units per day insulin needles, DISPOSABLE, (PEN NEEDLE) 31 gauge x 09/04 Use one needle per dose. 4 per day. Benazepril-hydroCHLOROthiazide 10-12.5 mg per tablet Take 1 tablet by mouth once daily. Potassium Citrate 15 mEq TbER Take 1 tablet by mouth twice daily. gemfibrozil (LOPID) 600 mg tablet Take 1 tablet by mouth twice daily. fluticasone (FLONASE) 50 mcg/actuation nasal spray Use 2 Sprays in each nostril once daily. loratadine (CLARITIN) 10 mg tablet Take 1 tablet by mouth once daily. CPAP Initiate Auto PAP @ 5-20 cm of water with humidification. Mask (per patient preference) optional chin strap (if indicated) , filters, tubing, humidifier and lifetime supplies. CPAP Needs new APAP @ cm of water with humidification. Mask (per patient preference) optional chin strap (if indicated) , filters, tubing, humidifier and lifetime supplies. Diagnosis: SOLO G47.33 Methylcellulose, Laxative, 500 mg tab Take by mouth. MULTIVITAMIN TAB Take one(1) tablet daily. Fish Oil-DHA-EPA 1,200-144-216 mg cap Take 2 capsules by mouth once daily. (Patient not taking: Reported on 10/26/2022) No current facility-administered medications for this visit. ALLERGIES Allergen Reactions Melanie Ruiz [Other] FAMILY HISTORY Problem Relation Age of Onset Coronary Artery Disease Father age 54 Diabetes Father Heart Mother Hypertension Mother Arthritis Mother fibromyalgia Diabetes Paternal Grandfather Social History Tobacco Use Smoking status: Never Smokeless tobacco: Never Substance Use Topics Alcohol use: No Drug use: No Review of Systems Objective BP 158/68 Pulse 89 Temp 37 C (98.6 F) Resp 18 Wt 82.6 kg (182 lb) SpO2 97% BMI 27.07 kg/m Physical Exam Vitals reviewed. Constitutional: Appearance: Normal appearance. Eyes: General: Scleral icterus present. Cardiovascular: Rate and Rhythm: Normal rate and regular rhythm. Heart sounds: Normal heart sounds. Pulmonary: Effort: Pulmonary effort is normal. Breath sounds: Normal breath sounds. Abdominal: Palpations: Abdomen is soft. Tenderness: There is no abdominal tenderness. Comments: Healing sites from lap jerman Skin: General: Skin is warm and dry. Coloration: Skin is jaundiced. Neurological: General: No focal deficit present. Mental Status: He is alert and oriented to person, place, and time. Psychiatric: Mood and Affect: Mood normal. Behavior: Behavior normal. Thought Content: Thought content normal. Judgment: Judgment normal. Assessment and Plan Encounter Diagnosis ICD-10-CM 1. Type 2 diabetes mellitus without complication, with long-term current use of insulin ([facility]) E11.9 flash glucose scanning reader (FREESTYLE NEIL 2 READER) Z79.4 flash glucose sensor (FREESTYLE NEIL 2 SENSOR) kit 2. 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) E83.110 3. Elevated ferritin R79.89 4. Autoimmune hepatitis treated with steroids ([facility]) K75.4 5. Essential hypertension I10 Above issues addressed with patient and . Patient involved in shared decision making for management of medical issues. History and medications reviewed. Epic updated as needed Refills and/or prescriptions taken care of and meds adjusted as indicated after reviewed history, exam and labs. Health Maintenance reviewed. Updated record and/or ordered tests as recorded. Encouraged on efforts at healthy diet and regular exercise and adequate sleep. Will decide about GI follow up (whether with GI at [facility] or within\ [facility]) Work on getting CGM to help with glycemic control. Adjust meds as indicated. Molly Ortiz MD documented in this encounter [facility] 10-25-2022 Note HNO ID: [id number] Author: Ninoska Odonnell LPN Service: ? Author Type: ? Type: Progress Notes Filed: 10/25/2022 3:45 PM Note Text: Patient presents for self injection teaching of insulin. Reviewed over medications ordered. Educated on proper technique for hand hygiene, medication preparation, site preparation, storage, and disposal of supplies. Patient and both completed teachback verbally, and pt was able to demonstrate all steps with education materials in office. Answered all questions as appropriate. Provided with handout information. Patient alert and oriented. Spent 45 minutes with face to face education. Ninoska Odonnell LPN [facility] 10-25-2022 History of Presen t illness Narrative Patient presents for self injection teaching of insulin. Reviewed over medications ordered. Educated on proper technique for hand hygiene, medication preparation, site preparation, storage, and disposal of supplies. Patient and both completed teachback verbally, and pt was able to demonstrate all steps with education materials in office. Answered all questions as appropriate. Provided with handout information. Patient alert and oriented. Spent 45 minutes with face to face education. Ninoska Odonnell LPN documented in this encounter [facility] 10-24-2022 Miscellaneous Notes Spoke with patient's . Given message from provider's office regarding Insulin scripts. Scheduled appointment with OR Nurse for Insulin teaching on 10/25. Scheduled Hospital discharge F/U with PCP on 10/26 for 40 minutes. See PCP request for biopsy result in previous note. Steph Garsia, RN How about 10/29 hospital follow up 40 minute slots? We can discuss at the appointment timing on next labs since had so many done at the hospital. Will get print out of labs for the hospital follow up to reviewed then. Noted that sugars were running 300s to 400s and was on insulin in the hospital and he was sent home without insulin and looks like no medication was added to control the sugars without insulin--is that right? Is he comfortable with giving himself insulin injections? Could get set up with pharmD or nurse or DM nurse or DM TELEHEALTH COORDINATOR for teaching if willing to give self insulin titrating down the prednisone. Might also be high s/p acute pancreatitis. If knows how to give self insulin (though I have no record that ever gave self insulin), can send Rx for long acting plus short acting. I sent the prescriptions for insulin so that may crop picker the RXs whether or not needs DM teaching on insulin use. Can bring to appointment with one of the above noted providers to help with teaching if needed. Might just need short term while getting off prednisone, but not sure given recent pancreatitis whether might need some insuline for a while during recovery from that. Also, check [employer] for the pathology report on the biopsy Please see initial note. Patient's calling back to report patient's blood sugar pre lunch is 489. He is on a Prednisone taper that was started today at 60 mg /day x 7 days decreasing by 10 mg each week. He was receiving Insulin during his hospital stay but was discharged home without any. Patient is scheduled for 6 month follow up with labs on 11/02. This nurse scheduled Hospital F/U on 10/26. His asks if any labs need to be done prior to visit on 10/26 or will PCP review hospital labs at that time? Steph Garsia, RN Pt was at [facility] 10/18 - 10/23/22. Dx'd with acute cholecystitis, pancreatitis & hepatitis. - Pt's (pt got on phone also) reports pt is home resting now. Reports his skin color has a very slight improvement, slightly less yellow. Same with eyes. - Stool was avalos in color this am. - New meds: tramadol & prednisone. Was given insulin in the hospital but was not given any for home. reports pt's BS was 255 this am before breakfast. She is concerned with BS & not being able to heal as well with it being elevated. Pt has had an 8# wt loss. Was 108.2# this am. Pt is scheduled for a 6 mth FU 11/02/22 & wonders if he can change that to a hosp FU or does pcp want to see him sooner? 2. He has labs to be done 09/26/22 & is a asking if he needs to complete those since he had so many done in the hospital? Hospital records are in scanning. Please advise. Fanny Gabriel LPN documented in this encounter [facility] 07-07-2022 Miscellaneous Notes Patient has been identified by name and date of : Yes Last office visit in this department: 07/04/2022 RX INSTRUCTIONS: Patient aware RX will be sent to pharmacy. No need to notify patient. Patient phones requesting refills as follows: Requested Prescriptions Pending Prescriptions Disp Refills Benazepril-hydroCHLOROthiazide 10-12.5 mg per tablet 90 tablet 3 Sig: Take 1 tablet by mouth once daily. Potassium Citrate 15 mEq TbER 180 tablet 3 Sig: Take 1 tablet by mouth twice daily. Please review and advise. Bel Brizuela documented in this encounter [facility] 07-04-2022 Note HNO ID: [id number] Author: Molly Ortiz MD Service: ? Author Type: Physician Type: Progress Notes Filed: 08/02/2022 7:14 PM Note Text: This note was created using [employer]. Subjective Nelli Denton is a 56 year old male. Patient presents with: F/U 4 month SUBJECTIVE: Nelli Denton is a 56 year old year old gentleman here today for 6 month follow up appointment for review of medical conditions. Ear symptoms--not hearing as well.. Check ears. No prostate cancer in family history. PAST MEDICAL HISTORY Diagnosis Date Allergic rhinitis, cause unspecified 06/04/2008 Dr. Linares. Dermatophytosis of the body Dysmetabolic syndrome X 06/04/2008 IFG (impaired fasting glucose) Obesity, unspecified Other and unspecified hyperlipidemia Type II or unspecified type diabetes mellitus without mention of complication, not stated as uncontrolled 01/05/2011 resolved by August 2015 with no fasting glucose >= 126 or HgA1C>=6.5 Unspecified essential hypertension Unspecified sleep apnea Current Outpatient Medications Medication Sig gemfibrozil (LOPID) 600 mg tablet Take 1 tablet by mouth twice daily. fluticasone (FLONASE) 50 mcg/actuation nasal spray Use 2 Sprays in each nostril once daily. loratadine (CLARITIN) 10 mg tablet Take 1 tablet by mouth once daily. Potassium Citrate 15 mEq TbER Take 1 tablet by mouth twice daily. Benazepril-hydroCHLOROthiazide 10-12.5 mg per tablet Take 1 tablet by mouth once daily. CPAP Initiate Auto PAP @ 5-20 cm of water with humidification. Mask (per patient preference) optional chin strap (if indicated) , filters, tubing, humidifier and lifetime supplies. CPAP Needs new APAP @ cm of water with humidification. Mask (per patient preference) optional chin strap (if indicated) , filters, tubing, humidifier and lifetime supplies. Diagnosis: SOLO G47.33 Methylcellulose, Laxative, 500 mg tab Take by mouth. Fish Oil-DHA-EPA 1,200-144-216 mg cap Take 2 capsules by mouth once daily. MULTIVITAMIN TAB Take one(1) tablet daily. No current facility-administered medications for this visit. Review of Systems Objective BP 132/66 Pulse 82 Temp 36.6 ?C (97.8 ?F) Resp 18 Wt 85.7 kg (189 lb) SpO2 98% BMI 28.11 kg/m? Last 5 Encounter Wt Readings: Date: Wt: 07/04/2022 85.7 kg (189 lb) 03/05/2022 83 kg (183 lb) 11/15/2021 86.2 kg (190 lb) 06/26/2021 84.4 kg (186 lb) 11/04/2020 83 kg (183 lb) No waist measurement recorded Estimated body mass index is 28.11 kg/m? as calculated from the following: Height as of 03/26/17: 174.6 cm (5' 8.75 ). Weight as of this encounter: 85.7 kg (189 lb). Last 5 Encounter BP Readings: Date: BP: 07/04/2022 132/66 03/05/2022 138/60 11/15/2021 126/62 06/26/2021 138/72 11/04/2020 136/68[at home[ Physical Exam Vitals reviewed. Constitutional: Appearance: Normal appearance. Eyes: Conjunctiva/sclera: Conjunctivae normal. Cardiovascular: Rate and Rhythm: Normal rate and regular rhythm. Heart sounds: Normal heart sounds. Pulmonary: Effort: Pulmonary effort is normal. Breath sounds: Normal breath sounds. Skin: General: Skin is warm and dry. Neurological: General: No focal deficit present. Mental Status: He is alert and oriented to person, place, and time. Psychiatric: Mood and Affect: Mood normal. Behavior: Behavior normal. Thought Content: Thought content normal. Judgment: Judgment normal. Component Latest Ref Rng AND Units 11/07/2021 03/02/2022 06/29/2022 WBC 3.70 - 11.00 k/uL 4.49 5.24 6.60 RBC 4.20 - 6.00 m/uL 4.55 4.90 5.08 Hemoglobin 13.0 - 17.0 g/dL 14.5 15.7 16.1 Hematocrit 39.0 - 51.0 % 40.6 43.5 44.2 MCV 80.0 - 100.0 fL 89.2 88.8 87.0 MCH 26.0 - 34.0 pg 31.9 32.0 31.7 MCHC 30.5 - 36.0 g/dL 35.7 36.1 (H) 36.4 (H) RDW-CV 11.5 - 15.0 % 12.1 11.7 11.7 Platelet Count 150 - 400 k/uL 185 203 194 MPV 9.0 - 12.7 fL 11.3 11.3 11.1 Neut% % 46.4 55.4 Abs Neut (ANC) 1.45 - 7.50 k/uL 2.08 2.90 Lymph% % 38.5 34.5 Abs Lymph 1.00 - 4.00 k/uL 1.73 1.81 [place]% % 10.7 7.6 Abs [place] <0.87 k/uL 0.48 0.40 Eosin% % 3.3 1.5 Abs Eosin <0.46 k/uL 0.15 0.08 Baso% % 0.9 0.6 Abs Baso <0.11 k/uL 0.04 0.03 Immature Gran % % 0.2 0.4 IMMATURE GRANS (ABS) <0.10 k/uL <0.03 <0.03 NRBC /100 WBC 0.0 0.0 Absolute nRBC <0.01 k/uL <0.01 <0.01 <0.01 DTYPE Auto Auto Protein, Total 6.3 - 8.0 g/dL 6.4 6.8 6.7 Albumin 3.9 - 4.9 g/dL 4.3 4.7 4.6 Calcium 8.5 - 10.2 mg/dL 8.8 9.7 9.7 Bilirubin, Total 0.2 - 1.3 mg/dL 0.9 1.0 0.9 Alkaline Phosphatase 38 - 113 U/L 69 67 68 AST 14 - 40 U/L 29 24 26 ALT 10 - 54 U/L 26 24 27 Glucose 74 - 99 mg/dL 169 (H) 143 (H) 177 (H) BUN 9 - 24 mg/dL 15 17 18 Creatinine 0.73 - 1.22 mg/dL 0.84 0.96 0.90 Sodium 136 - 144 mmol/L 140 138 140 Potassium 3.7 - 5.1 mmol/L 4.0 4.1 3.9 Chloride 97 - 105 mmol/L 104 101 103 CO2 22 - 30 mmol/L 25 29 28 Anion Gap 9 - 18 mmol/L 11 8 (L) 9 eGFR >=60 mL/min/1.73mA? 104 93 101 Cholesterol, Total <200 mg/ (more content not included)... [facility] 07-04-2022 History of Presen t illness Narrative This note was created using [employer]. Subjective Nelli Denton is a 56 year old male. Patient presents with: F/U 4 month SUBJECTIVE: Nelli Denton is a 56 year old year old gentleman here today for 6 month follow up appointment for review of medical conditions. Ear symptoms--not hearing as well.. Check ears. No prostate cancer in family history. PAST MEDICAL HISTORY Diagnosis Date Allergic rhinitis, cause unspecified 06/04/2008 Dr. Linares. Dermatophytosis of the body Dysmetabolic syndrome X 06/04/2008 IFG (impaired fasting glucose) Obesity, unspecified Other and unspecified hyperlipidemia Type II or unspecified type diabetes mellitus without mention of complication, not stated as uncontrolled 01/05/2011 resolved by August 2015 with no fasting glucose >= 126 or HgA1C>=6.5 Unspecified essential hypertension Unspecified sleep apnea Current Outpatient Medications Medication Sig gemfibrozil (LOPID) 600 mg tablet Take 1 tablet by mouth twice daily. fluticasone (FLONASE) 50 mcg/actuation nasal spray Use 2 Sprays in each nostril once daily. loratadine (CLARITIN) 10 mg tablet Take 1 tablet by mouth once daily. Potassium Citrate 15 mEq TbER Take 1 tablet by mouth twice daily. Benazepril-hydroCHLOROthiazide 10-12.5 mg per tablet Take 1 tablet by mouth once daily. CPAP Initiate Auto PAP @ 5-20 cm of water with humidification. Mask (per patient preference) optional chin strap (if indicated) , filters, tubing, humidifier and lifetime supplies. CPAP Needs new APAP @ cm of water with humidification. Mask (per patient preference) optional chin strap (if indicated) , filters, tubing, humidifier and lifetime supplies. Diagnosis: SOLO G47.33 Methylcellulose, Laxative, 500 mg tab Take by mouth. Fish Oil-DHA-EPA 1,200-144-216 mg cap Take 2 capsules by mouth once daily. MULTIVITAMIN TAB Take one(1) tablet daily. No current facility-administered medications for this visit. Review of Systems Objective BP 132/66 Pulse 82 Temp 36.6 C (97.8 F) Resp 18 Wt 85.7 kg (189 lb) SpO2 98% BMI 28.11 kg/m Last 5 Encounter Wt Readings: Date: Wt: 07/04/2022 85.7 kg (189 lb) 03/05/2022 83 kg (183 lb) 11/15/2021 86.2 kg (190 lb) 06/26/2021 84.4 kg (186 lb) 11/04/2020 83 kg (183 lb) No waist measurement recorded Estimated body mass index is 28.11 kg/m as calculated from the following: Height as of 03/26/17: 174.6 cm (5' 8.75 ). Weight as of this encounter: 85.7 kg (189 lb). Last 5 Encounter BP Readings: Date: BP: 07/04/2022 132/66 03/05/2022 138/60 11/15/2021 126/62 06/26/2021 138/72 11/04/2020 136/68[at home[ Physical Exam Vitals reviewed. Constitutional: Appearance: Normal appearance. Eyes: Conjunctiva/sclera: Conjunctivae normal. Cardiovascular: Rate and Rhythm: Normal rate and regular rhythm. Heart sounds: Normal heart sounds. Pulmonary: Effort: Pulmonary effort is normal. Breath sounds: Normal breath sounds. Skin: General: Skin is warm and dry. Neurological: General: No focal deficit present. Mental Status: He is alert and oriented to person, place, and time. Psychiatric: Mood and Affect: Mood normal. Behavior: Behavior normal. Thought Content: Thought content normal. Judgment: Judgment normal. Component Latest Ref Rng & Units 11/07/2021 03/02/2022 06/29/2022 WBC 3.70 - 11.00 k/uL 4.49 5.24 6.60 RBC 4.20 - 6.00 m/uL 4.55 4.90 5.08 Hemoglobin 13.0 - 17.0 g/dL 14.5 15.7 16.1 Hematocrit 39.0 - 51.0 % 40.6 43.5 44.2 MCV 80.0 - 100.0 fL 89.2 88.8 87.0 MCH 26.0 - 34.0 pg 31.9 32.0 31.7 MCHC 30.5 - 36.0 g/dL 35.7 36.1 (H) 36.4 (H) RDW-CV 11.5 - 15.0 % 12.1 11.7 11.7 Platelet Count 150 - 400 k/uL 185 203 194 MPV 9.0 - 12.7 fL 11.3 11.3 11.1 Neut% % 46.4 55.4 Abs Neut (ANC) 1.45 - 7.50 k/uL 2.08 2.90 Lymph% % 38.5 34.5 Abs Lymph 1.00 - 4.00 k/uL 1.73 1.81 [place]% % 10.7 7.6 Abs [place] <0.87 k/uL 0.48 0.40 Eosin% % 3.3 1.5 Abs Eosin <0.46 k/uL 0.15 0.08 Baso% % 0.9 0.6 Abs Baso <0.11 k/uL 0.04 0.03 Immature Gran % % 0.2 0.4 IMMATURE GRANS (ABS) <0.10 k/uL <0.03 <0.03 NRBC /100 WBC 0.0 0.0 Absolute nRBC <0.01 k/uL <0.01 <0.01 <0.01 DTYPE Auto Auto Protein, Total 6.3 - 8.0 g/dL 6.4 6.8 6.7 Albumin 3.9 - 4.9 g/dL 4.3 4.7 4.6 Calcium 8.5 - 10.2 mg/dL 8.8 9.7 9.7 Bilirubin, Total 0.2 - 1.3 mg/dL 0.9 1.0 0.9 Alkaline Phosphatase 38 - 113 U/L 69 67 68 AST 14 - 40 U/L 29 24 26 ALT 10 - 54 U/L 26 24 27 Glucose 74 - 99 mg/dL 169 (H) 143 (H) 177 (H) BUN 9 - 24 mg/dL 15 17 18 Creatinine 0.73 - 1.22 mg/dL 0.84 0.96 0.90 Sodium 136 - 144 mmol/L 140 138 140 Potassium 3.7 - 5.1 mmol/L 4.0 4.1 3.9 Chloride 97 - 105 mmol/L 104 101 103 CO2 22 - 30 mmol/L 25 29 28 Anion Gap 9 - 18 mmol/L 11 8 (L) 9 eGFR >=60 mL/min/1.73m 104 93 101 Cholesterol, Total <200 mg/dL 163 201 (H) 181 Triglyceride <150 mg/dL 194 (H) 154 (H) 234 (H) HDL Cholesterol >39 mg/dL 31 (L) 34 (L) 33 (L) Non HDL Cholesterol <130 mg/dL 132 (H) 167 (H) 148 (H) Fasting Time hrs 12 12 10 VLDL Cholesterol <30 mg/dL 39 (H) 31 (H) 47 (H) TC:HDL Ratio <5.10 5.26 (H) 5.91 (H) 5.48 (H) LDL Cholesterol <100 mg/dL 93 136 (H) 101 (H) LDL:HDL Ratio <2.54 3.00 (H) 4.00 (H) 3.06 (H) Creatinine, Ur Random (UCRR) 20.0 - 300.0 mg/dL 170.9 Albumin, Urine Random mg/L <12.0 Albumin/Creat Ratio <30 mg/g <7 Iron 41 - 186 ug/dL 202 (H) 188 (H) 201 (H) TIBC 232 - 386 ug/dL 340 401 (H) 391 (H) Transferrin Saturation 15.0 - 57.0 % 59.4 (H) 46.9 51.4 Hemoglobin A1C 4.3 - 5.6 % 7.2 (H) 6.6 (H) 7.4 (H) Estimated Average Glucose mg/dL 160 143 166 Ferritin 30.3 - 565.7 ng/mL 670.0 (H) 764.0 (H) 764.0 (H) Assessment and Plan Encounter Diagnosis ICD-10-CM 1. Type 2 diabetes mellitus without complication, without long-term current use of insulin (HCC) E11.9 COMP METABOLIC PANEL HGB A1C ALBUMIN/CREAT RATIO RND UR 2. Elevated ferritin R79.89 IRON + TIBC FERRITIN BLD 3. Essential hypertension I10 COMP METABOLIC PANEL CBC 4. Mixed hyperlipidemia E78.2 LIPID PANEL BASIC 5. Encounter for long-term current use of medication Z79.899 VITAMIN B12 BLOOD IRON + TIBC FOLATE SERUM FERRITIN BLD COMP METABOLIC PANEL HGB A1C CBC LIPID PANEL BASIC ALBUMIN/CREAT RATIO RND UR Above issues addressed with patient. Patient involved in shared decision making for management of medical issues. History and medications reviewed. Epic updated as needed Refills and/or prescriptions taken care of and meds adjusted as indicated after reviewed history, exam and labs. Health Maintenance reviewed. Updated record and/or ordered tests as recorded. Encouraged on efforts at healthy diet and regular exercise and adequate sleep. Molly Ortiz MD documented in this encounter [facility] 03-05-2022 History of Presen t illness Narrative This note was created using RIVS. Subjective Nelli Denton is a 56 year old male. Patient presents with: Follow Up SUBJECTIVE: Nelli Denton is a 56 year old year old gentleman here today for 4 month follow up appointment for review of medical conditions. Stress the past couple months. 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 Working in [employer] starting next week. Hanging in there. BPs 120 to 130s at home--most in 120s. DBP 60 to 70s, mostly 60s. HR mostly in 70s. Started walking and playing tennis. PAST MEDICAL HISTORY Diagnosis Date Allergic rhinitis, cause unspecified 06/04/2008 Dr. Linares. Dermatophytosis of the body Dysmetabolic syndrome X 06/04/2008 IFG (impaired fasting glucose) Obesity, unspecified Other and unspecified hyperlipidemia Type II or unspecified type diabetes mellitus without mention of complication, not stated as uncontrolled 01/05/2011 resolved by August 2015 with no fasting glucose >= 126 or HgA1C>=6.5 Unspecified essential hypertension Unspecified sleep apnea Current Outpatient Medications Medication Sig fluticasone (FLONASE) 50 mcg/actuation nasal spray Use 2 Sprays in each nostril once daily. loratadine (CLARITIN) 10 mg tablet Take 1 tablet by mouth once daily. Potassium Citrate 15 mEq TbER Take 1 tablet by mouth twice daily. Benazepril-hydroCHLOROthiazide 10-12.5 mg per tablet Take 1 tablet by mouth once daily. gemfibrozil (LOPID) 600 mg tablet Take 1 tablet by mouth twice daily. CPAP Initiate Auto PAP @ 5-20 cm of water with humidification. Mask (per patient preference) optional chin strap (if indicated) , filters, tubing, humidifier and lifetime supplies. CPAP Needs new APAP @ cm of water with humidification. Mask (per patient preference) optional chin strap (if indicated) , filters, tubing, humidifier and lifetime supplies. Diagnosis: SOLO G47.33 Methylcellulose, Laxative, (FIBER THERAPY, M-CELLULOSE,) 500 mg tab Take by mouth. Fish Oil-DHA-EPA (FISH OIL) 1,200-144-216 mg ORAL Cap Take 2 capsules by mouth once daily. MULTIVITAMIN TAB Take one(1) tablet daily. No current facility-administered medications for this visit. Review of Systems Objective BP 140/72 Pulse 76 Wt 83 kg (183 lb) SpO2 97% BMI 27.22 kg/m Last 5 Encounter Wt Readings: Date: Wt: 03/05/2022 83 kg (183 lb) 11/15/2021 86.2 kg (190 lb) 06/26/2021 84.4 kg (186 lb) 11/04/2020 83 kg (183 lb) 03/04/2020 82.1 kg (181 lb) No waist measurement recorded Estimated body mass index is 27.22 kg/m as calculated from the following: Height as of 03/26/17: 174.6 cm (5' 8.75 ). Weight as of this encounter: 83 kg (183 lb). Last 5 Encounter BP Readings: Date: BP: 03/05/2022 140/72 11/15/2021 126/62 06/26/2021 138/72 11/04/2020 136/68[at home[ 11/16/2019 132/78 03/05/22 1630 03/05/22 1721 BP: 140/72 138/60 Pulse: 76 SpO2: 97% Weight: 83 kg (183 lb) Physical Exam Vitals reviewed. Constitutional: Appearance: Normal appearance. Eyes: Conjunctiva/sclera: Conjunctivae normal. Cardiovascular: Rate and Rhythm: Normal rate and regular rhythm. Heart sounds: Normal heart sounds. Pulmonary: Effort: Pulmonary effort is normal. Breath sounds: Normal breath sounds. Skin: General: Skin is warm and dry. Neurological: General: No focal deficit present. Mental Status: He is alert and oriented to person, place, and time. Psychiatric: Mood and Affect: Mood normal. Behavior: Behavior normal. Thought Content: Thought content normal. Judgment: Judgment normal. Component Latest Ref Rng & Units 03/13/2021 06/20/2021 11/07/2021 03/02/2022 WBC 3.70 - 11.00 k/uL 5.62 4.95 4.49 5.24 RBC 4.20 - 6.00 m/uL 5.04 4.95 4.55 4.90 Hemoglobin 13.0 - 17.0 g/dL 16.2 15.6 14.5 15.7 Hematocrit 39.0 - 51.0 % 45.0 44.4 40.6 43.5 MCV 80.0 - 100.0 fL 89.3 89.7 89.2 88.8 MCH 26.0 - 34.0 pg 32.1 31.5 31.9 32.0 MCHC 30.5 - 36.0 g/dL 36.0 35.1 35.7 36.1 (H) RDW-CV 11.5 - 15.0 % 11.9 11.9 12.1 11.7 Platelet Count 150 - 400 k/uL 207 207 185 203 MPV 9.0 - 12.7 fL 10.8 11.3 11.3 11.3 Neut% % 46.4 55.4 Abs Neut (ANC) 1.45 - 7.50 k/uL 2.08 2.90 Lymph% % 38.5 34.5 Abs Lymph 1.00 - 4.00 k/uL 1.73 1.81 [place]% % 10.7 7.6 Abs [place] <0.87 k/uL 0.48 0.40 Eosin% % 3.3 1.5 Abs Eosin <0.46 k/uL 0.15 0.08 Baso% % 0.9 0.6 Abs Baso <0.11 k/uL 0.04 0.03 Immature Gran % % 0.2 0.4 IMMATURE GRANS (ABS) <0.10 k/uL <0.03 <0.03 NRBC /100 WBC 0.0 0.0 Absolute nRBC <0.01 k/uL <0.01 <0.01 <0.01 <0.01 DTYPE Auto Auto Protein, Total 6.3 - 8.0 g/dL 6.6 6.7 6.4 6.8 Albumin 3.9 - 4.9 g/dL 4.5 4.4 4.3 4.7 Calcium 8.5 - 10.2 mg/dL 9.4 9.4 8.8 9.7 Bilirubin, Total 0.2 - 1.3 mg/dL 1.1 1.0 0.9 1.0 Alkaline Phosphatase 38 - 113 U/L 57 65 69 67 AST 14 - 40 U/L 27 21 29 24 Glucose 74 - 99 mg/dL 129 (H) 135 (H) 169 (H) 143 (H) BUN 9 - 24 mg/dL 18 19 15 17 Creatinine 0.73 - 1.22 mg/dL 0.89 0.96 0.84 0.96 Sodium 136 - 144 mmol/L 139 143 140 138 Potassium 3.7 - 5.1 mmol/L 4.0 3.9 4.0 4.1 Chloride 97 - 105 mmol/L 103 102 104 101 CO2 22 - 30 mmol/L 23 27 25 29 Anion Gap 9 - 18 mmol/L 13 14 11 8 (L) ALT 10 - 54 U/L 24 21 26 24 eGFR- >60 eGFR-All Other Races . >60 eGFR >=60 mL/min/1.73m 94 104 93 Cholesterol, Total <200 mg/dL 173 174 163 201 (H) Triglyceride <150 mg/dL 197 (H) 118 194 (H) 154 (H) HDL Cholesterol >39 mg/dL 30 (L) 35 (L) 31 (L) 34 (L) LDL Cholesterol <100 mg/dL 104 (H) 115 (H) 93 136 (H) Non HDL Cholesterol <130 mg/dL 143 (H) 139 (H) 132 (H) 167 (H) Fasting Time hrs 12 13 12 12 VLDL Cholesterol <30 mg/dL 39 (H) 24 39 (H) 31 (H) TC:HDL Ratio <5.10 5.77 (H) 4.97 5.26 (H) 5.91 (H) LDL:HDL Ratio <2.54 3.47 (H) 3.29 (H) 3.00 (H) 4.00 (H) Iron 41 - 186 ug/dL 213 (H) 193 (H) 202 (H) 188 (H) TIBC 232 - 386 ug/dL 367 388 (H) 340 401 (H) Transferrin Saturation 15.0 - 57.0 % 58 (H) 50 59.4 (H) 46.9 Creatinine, Ur Random (UCRR) 20.0 - 300.0 mg/dL 170.9 Albumin, Urine Random mg/L <12.0 Albumin/Creat Ratio <30 mg/g <7 Hemoglobin A1C 4.3 - 5.6 % 6.2 (H) 7.2 (H) 6.6 (H) Estimated Average Glucose mg/dL 131 160 143 Ferritin 30.3 - 565.7 ng/mL 635.0 (H) 631.0 (H) 670.0 (H) 764.0 (H) The 10-year ASCVD risk score (Ascencion DK, et al., 2019) is: 19.2% Values used to calculate the score: Age: 56 years Sex: Male Is Non- : No Diabetic: Yes Tobacco smoker: No Systolic Blood Pressure: 138 mmHg Is BP treated: Yes HDL Cholesterol: 34 mg/dL Total Cholesterol: 201 mg/dL Assessment and Plan Encounter Diagnosis ICD-10-CM 1. Type 2 diabetes mellitus without complication, without long-term current use of insulin (HCC) E11.9 2. Essential hypertension I10 BPs great at home 3. Elevated ferritin R79.89 4. Mixed hyperlipidemia E78.2 Above issues addressed with patient. Patient involved in shared decision making for management of medical issues. History and medications reviewed. Epic updated as needed Refills and/or prescriptions taken care of and meds adjusted as indicated after reviewed history, exam and labs. Health Maintenance reviewed. Updated record and/or ordered tests as recorded. Encouraged on efforts at healthy diet and regular exercise and adequate sleep. Needs to keep working on diet and exercise with lifestyle changes for effective weight loss as well as control of DM, and control of BP and lipids. Continue present meds. Continue present management. Further evaluation and treatment as indicated. Molly Ortiz MD documented in this encounter [facility] 11-15-2021 History of Presen t illness Narrative This note was created using [employer]. Subjective Nelli Denton is a 56 year old male. Patient presents with: Follow Up SUBJECTIVE: Nelli Denton is a 56 year old year old gentleman here today for follow up appointment for review of medical conditions. Feeling fine. Noted that dessert more lately. Knows needs to do better with portion sizes of meals. Trying to get salad in twice a week. 2 to 3 weeks ago felt like passed a stone. Some mild pain then a couple weeks ago passed blood. Had pain in urethral area. Could not sit or lay. Not severe like when had prior kidney stone. Still adding lemon to water. Taking potassium citrate. Did not get call from Dr. Robins's office for yearly check up. There are known kidney stones but not concerning for causing problems. Stays hydrated and drinks throughout the day. Dad had kidney stones. Allergies doing well on meds but was getting OTC. Will try RX. BPs area 110 to 130s with most 120 range. HR in 70s. PAST MEDICAL HISTORY Diagnosis Date Allergic rhinitis, cause unspecified 06/04/2008 Dr. Linares. Dermatophytosis of the body Dysmetabolic syndrome X 06/04/2008 IFG (impaired fasting glucose) Obesity, unspecified Other and unspecified hyperlipidemia Type II or unspecified type diabetes mellitus without mention of complication, not stated as uncontrolled 01/05/2011 resolved by August 2015 with no fasting glucose >= 126 or HgA1C>=6.5 Unspecified essential hypertension Unspecified sleep apnea Current Outpatient Medications Medication Sig Potassium Citrate 15 mEq TbER Take 1 tablet by mouth twice daily. Benazepril-hydroCHLOROthiazide 10-12.5 mg per tablet Take 1 tablet by mouth once daily. gemfibrozil (LOPID) 600 mg tablet Take 1 tablet by mouth twice daily. fluticasone (FLONASE) 50 mcg/actuation nasal spray Use 2 Sprays in each nostril once daily. CPAP Initiate Auto PAP @ 5-20 cm of water with humidification. Mask (per patient preference) optional chin strap (if indicated) , filters, tubing, humidifier and lifetime supplies. CPAP Needs new APAP @ cm of water with humidification. Mask (per patient preference) optional chin strap (if indicated) , filters, tubing, humidifier and lifetime supplies. Diagnosis: SOLO G47.33 Methylcellulose, Laxative, (FIBER THERAPY, M-CELLULOSE,) 500 mg tab Take by mouth. Fish Oil-DHA-EPA (FISH OIL) 1,200-144-216 mg ORAL Cap Take 2 capsules by mouth once daily. LORATADINE 10 MG TAB Take one(1) tablet daily. MULTIVITAMIN TAB Take one(1) tablet daily. No current facility-administered medications for this visit. Review of Systems Objective BP 126/62 Pulse 75 Wt 86.2 kg (190 lb) SpO2 97% BMI 28.26 kg/m Last 5 Encounter Wt Readings: Date: Wt: 11/15/2021 86.2 kg (190 lb) 06/26/2021 84.4 kg (186 lb) 11/04/2020 83 kg (183 lb) 03/04/2020 82.1 kg (181 lb) 11/16/2019 84.8 kg (187 lb) No waist measurement recorded Estimated body mass index is 28.26 kg/m as calculated from the following: Height as of 03/26/17: 174.6 cm (5' 8.75 ). Weight as of this encounter: 86.2 kg (190 lb). Last 5 Encounter BP Readings: Date: BP: 11/15/2021 126/62 06/26/2021 138/72 11/04/2020 136/68[at home[ 11/16/2019 132/78 05/19/2019 144/76 Physical Exam Vitals reviewed. Constitutional: Appearance: Normal appearance. Eyes: Conjunctiva/sclera: Conjunctivae normal. Cardiovascular: Rate and Rhythm: Normal rate and regular rhythm. Heart sounds: Normal heart sounds. Pulmonary: Effort: Pulmonary effort is normal. Breath sounds: Normal breath sounds. Skin: General: Skin is warm and dry. Neurological: General: No focal deficit present. Mental Status: He is alert and oriented to person, place, and time. Psychiatric: Mood and Affect: Mood normal. Behavior: Behavior normal. Thought Content: Thought content normal. Judgment: Judgment normal. Hemoglobin A1C (%) Date Value 11/07/2021 7.2 03/13/2021 6.2 10/28/2020 6.3 06/21/2020 6.1 02/26/2020 6.3 11/12/2019 7.2 Component Latest Ref Rng & Units 03/13/2021 06/20/2021 07/23/2021 11/07/2021 WBC 3.70 - 11.00 k/uL 5.62 4.95 4.49 RBC 4.20 - 6.00 m/uL 5.04 4.95 4.55 Hemoglobin 13.0 - 17.0 g/dL 16.2 15.6 14.5 Hematocrit 39.0 - 51.0 % 45.0 44.4 40.6 MCV 80.0 - 100.0 fL 89.3 89.7 89.2 MCH 26.0 - 34.0 pg 32.1 31.5 31.9 MCHC 30.5 - 36.0 g/dL 36.0 35.1 35.7 RDW-CV 11.5 - 15.0 % 11.9 11.9 12.1 Platelet Count 150 - 400 k/uL 207 207 185 MPV 9.0 - 12.7 fL 10.8 11.3 11.3 Neut% % 46.4 Abs Neut (ANC) 1.45 - 7.50 k/uL 2.08 Lymph% % 38.5 Abs Lymph 1.00 - 4.00 k/uL 1.73 [place]% % 10.7 Abs [place] <0.87 k/uL 0.48 Eosin% % 3.3 Abs Eosin <0.46 k/uL 0.15 Baso% % 0.9 Abs Baso <0.11 k/uL 0.04 Immature Gran % % 0.2 IMMATURE GRANS (ABS) <0.10 k/uL <0.03 NRBC /100 WBC 0.0 Absolute nRBC <0.01 k/uL <0.01 <0.01 <0.01 DTYPE Auto Protein, Total 6.3 - 8.0 g/dL 6.6 6.7 6.4 Albumin 3.9 - 4.9 g/dL 4.5 4.4 4.3 Calcium 8.5 - 10.2 mg/dL 9.4 9.4 8.8 Bilirubin, Total 0.2 - 1.3 mg/dL 1.1 1.0 0.9 Alkaline Phosphatase 38 - 113 U/L 57 65 69 AST 14 - 40 U/L 27 21 29 Glucose 74 - 99 mg/dL 129 (H) 135 (H) 169 (H) BUN 9 - 24 mg/dL 18 19 15 Creatinine 0.73 - 1.22 mg/dL 0.89 0.96 0.84 Sodium 136 - 144 mmol/L 139 143 140 Potassium 3.7 - 5.1 mmol/L 4.0 3.9 4.0 Chloride 97 - 105 mmol/L 103 102 104 CO2 22 - 30 mmol/L 23 27 25 Anion Gap 9 - 18 mmol/L 13 14 11 ALT 10 - 54 U/L 24 21 26 eGFR- >60 eGFR-All Other Races . >60 eGFR >=60 mL/min/1.73m 94 104 Cholesterol, Total <200 mg/dL 173 174 163 Triglyceride <150 mg/dL 197 (H) 118 194 (H) HDL Cholesterol >39 mg/dL 30 (L) 35 (L) 31 (L) LDL Cholesterol <100 mg/dL 104 (H) 115 (H) 93 Non HDL Cholesterol <130 mg/dL 143 (H) 139 (H) 132 (H) Fasting Time hrs 12 13 12 VLDL Cholesterol <30 mg/dL 39 (H) 24 39 (H) TC:HDL Ratio <5.10 5.77 (H) 4.97 5.26 (H) LDL:HDL Ratio <2.54 3.47 (H) 3.29 (H) 3.00 (H) Iron 41 - 186 ug/dL 213 (H) 193 (H) 202 (H) TIBC 232 - 386 ug/dL 367 388 (H) 340 Transferrin Saturation 15.0 - 57.0 % 58 (H) 50 59.4 (H) Creatinine, Ur Random (UCRR) 20.0 - 300.0 mg/dL 170.9 Albumin, Urine Random mg/L <12.0 Albumin/Creat Ratio <30 mg/g <7 Hemoglobin A1C 4.3 - 5.6 % 6.2 (H) 7.2 (H) Estimated Average Glucose mg/dL 131 160 Ferritin 30.3 - 565.7 ng/mL 635.0 (H) 631.0 (H) 670.0 (H) Stool DNA Negative Negative Reviewed prior MRI and CT abdomen. Assessment and Plan ASSESSMENT/PLAN: 1. Elevated ferritin - ICD9: 790.6, ICD10: R79.89 (primary diagnosis) Clinically stable. Continue present management. - FERRITIN BLD - IRON + TIBC 2. Type 2 diabetes mellitus without complication, without long-term current use of insulin (HCC) - ICD9: 250.00, ICD10: E11.9 Controlled. - Continue current medications - Encouraged regular aerobic exercise and weight loss - COMP METABOLIC PANEL - HGB A1C 3. Essential hypertension - ICD9: 401.9, ICD10: I10 - good control - Continue current medication(s) - Recommended regular aerobic exercise. - Recommend home blood pressure monitoring, to bring results in on next visit - Goal of BP <130/80 - COMP METABOLIC PANEL - CBC 4. Mixed hyperlipidemia - ICD9: 272.2, ICD10: E78.2 - suboptimal control - Continue current medication. - Encouraged following a low fat, low cholesterol diet. - Discussed the benefits of regular aerobic exercise and weight loss. - Encouraged following a low carbohydrate, healthy oil intake diet. - LIPID PANEL BASIC 5. Kidney stones - ICD9: 592.0, ICD10: N20.0 Stable Continue present management. 6. HERNADEZ (nonalcoholic steatohepatitis) - ICD9: 571.8, ICD10: K75.81 Needs to keep working on diet and exercise with lifestyle changes for effective weight loss as well as control of DM, and control of BP and lipids. - COMP METABOLIC PANEL 7. Need for vaccination - ICD9: V05.9, ICD10: Z23 - ZOSTER VACC RECOMBINANT,IM - ZOSTER VACC RECOMBINANT,IM Molly Ortiz MD documented in this encounter [facility] documented as of this encounter (statuses as of 01/23/2022) [facility] History of Past illness Narrative* Problem Noted Date Resolved Date Diabetes mellitus type 2, controlled, without co mplications 01/05/2011 08/31/2015 OBESITY NOS 03/23/2015 Unspecified sleep apnea 09/12/19 17 documented as of this encounter (statuses as of 03/29/2022) [facility] History of Past illness Narrative* Problem Noted Date Resolved Date Diabetes mellitus type 2, controlled, without co mplications 01/05/2011 08/31/2015 OBESITY NOS 03/23/2015 Unspecified sleep apnea 09/12/19 17 documented as of this encounter (statuses as of 07/09/2022) [facility] History of Past illness Narrative* Problem Noted Date Resolved Date Diabetes mellitus type 2, controlled, without co mplications 01/05/2011 08/31/2015 OBESITY NOS 03/23/2015 Unspecified sleep apnea 09/12/19 17 documented as of this encounter (statuses as of 08/03/2022) [facility] History of Past illness Narrative* Problem Noted Date Resolved Date Diabetes mellitus type 2, controlled, without co mplications 01/05/2011 08/31/2015 OBESITY NOS 03/23/2015 Unspecified sleep apnea 09/12/19 17 documented as of this encounter (statuses as of 10/26/2022) [facility] History of Past illness Narrative* Problem Noted Date Diagnosed Date Resolved Date Diabetes mellitus type 2, co ntrolled, without complications 01/05/2011 08/31/2015 OBESITY NOS 03/23/2015 Unspecified sleep apnea 08/21 documented as of this encounter (statuses as of 10/30/2022) [facility] History of Past illness Narrative* Problem Noted Date Diagnosed Date Resolved Date Diabetes mellitus type 2, co ntrolled, without complications 01/05/2011 08/31/2015 OBESITY NOS 03/23/2015 Unspecified sleep apnea 08/21 documented as of this encounter (statuses as of 11/15/2022) [place] [id number] History of Past illness Narrative* Problem Noted Date Diagnosed Date Resolved Date Diabetes mellitus type 2, co ntrolled, without complications 01/05/2011 08/31/2015 OBESITY NOS 03/23/2015 Unspecified sleep apnea 08/21 documented as of this encounter (statuses as of 12/03/2022) [facility] of Past illness Narrative* Problem Noted Date Diagnosed Date Resolved Date Diabetes mellitus type 2, co ntrolled, without complications 01/05/2011 08/31/2015 OBESITY NOS 03/23/2015 Unspecified sleep apnea 08/21 documented as of this encounter (statuses as of 01/19/2023) [facility] of Past illness Narrative* Problem Noted Date Diagnosed Date Resolved Date Diabetes mellitus type 2, co ntrolled, without complications 01/05/2011 08/31/2015 OBESITY NOS 03/23/2015 Unspecified sleep apnea 08/21 documented as of this encounter (statuses as of 03/23/2023) [facility] note* Diagnosis Elevated ferritin- Primary Other abnormal blood chemistry Type 2 diabetes mellitus without complication, without long-term current use of insulin (HCC) Essential hypertension Unspecified essential hypertension Mixed hyperlipidemia Kidney stones Calculus of kidney HERNADEZ (nonalcoholic steatohepatitis) Other chronic nonalcoholic liver disease Need for vaccination Need for prophylactic vaccination and inoculation against unspecified single disease [facility] [place] [facility] Diagnosis Type 2 diabetes mellitus without complication, without long-term current use of insulin (HCC)- Primary Essential hypertension Unspecified essential hypertension Elevated ferritin Other abnormal blood chemistry Mixed hyperlipidemia [facility] [place] [facility] Diagnosis Type 2 diabetes mellitus without complication, without long-term current use of insulin (HCC)- Primary Elevated ferritin Other abnormal blood chemistry Essential hypertension Unspecified essential hypertension Mixed hyperlipidemia Encounter for long-term current use of medication [facility] [place] [facility] Diagnosis Type 2 diabetes mellitus without complication, without long-term current use of insulin (HCC)- Primary [facility] [place] [facility] Diagnosis Type 2 diabetes mellitus without complication, with long-term current use of insulin (HCC)- Primary 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) Elevated ferritin Other abnormal blood chemistry Autoimmune hepatitis treated with steroids (HCC) Autoimmune hepatitis Essential hypertension Unspecified essential hypertension [facility] Elevated ferritin- Primary Other abnormal blood chemistry Encounter for long-term current use of medication Mixed hyperlipidemia Type 2 diabetes mellitus with hyperglycemia, with long-term current use of insulin (HCC) Essential hypertension Unspecified essential hypertension documented in this encounter [facility] Reason for Referral Specialty Diagnoses / Procedures Referred By Contac t Referred To Contact Diagnoses Type 2 diabetes mellitus without complication, with long-term current use of insulin (HCC) Molly Ortiz MD [address] [place] [address] Referral ID Status Reason Start Date Expiration Date V isits Requested Visits Authorized [id number] Authorized 10/26/2022 10/26/2023 1 1 Summary Purpose Family History No Family History Records Found Advance Directives No Advanced Directives Records Found Additional Source Comments Source Comments (unrecognize d section and content) In the event this informatio n is protected by the Federal Confidentiality of Alcohol and Drug Abuse Patient Records regulations: The Federal rules restrict any use of the information to criminally investigate or prosecute any alcohol or drug abuse patient.[facility] the event this information is protected by the Federal Confidentiality of Alcohol and Drug Abuse Patient Records regulations: The Federal rules restrict any use of the information to criminally investigate or prosecute any alcohol or drug abuse patient.[facility] the event this information is protected by the Federal Confidentiality of Alcohol and Drug Abuse Patient Records regulations: The Federal rules restrict any use of the information to criminally investigate or prosecute any alcohol or drug abuse patient.[facility] the event this information is protected by the Federal Confidentiality of Alcohol and Drug Abuse Patient Records regulations: The Federal rules restrict any use of the information to criminally investigate or prosecute any alcohol or drug abuse patient.[facility] the event this information is protected by the Federal Confidentiality of Alcohol and Drug Abuse Patient Records regulations: The Federal rules restrict any use of the information to criminally investigate or prosecute any alcohol or drug abuse patient.[facility] the event this information is protected by the Federal Confidentiality of Alcohol and Drug Abuse Patient Records regulations: The Federal rules restrict any use of the information to criminally investigate or prosecute any alcohol or drug abuse patient.[facility] the event this information is protected by the Federal Confidentiality of Alcohol and Drug Abuse Patient Records regulations: The Federal rules restrict any use of the information to criminally investigate or prosecute any alcohol or drug abuse patient.[facility] the event this information is protected by the Federal Confidentiality of Alcohol and Drug Abuse Patient Records regulations: The Federal rules restrict any use of the information to criminally investigate or prosecute any alcohol or drug abuse patient.[facility] the event this information is protected by the Federal Confidentiality of Alcohol and Drug Abuse Patient Records regulations: The Federal rules restrict any use of the information to criminally investigate or prosecute any alcohol or drug abuse [facility] the event this information is protected by the Federal Confidentiality of Alcohol and Drug Abuse Patient Records regulations: The Federal rules restrict any use of the information to criminally investigate or prosecute any alcohol or drug abuse patient.[facility] Reason for Visit (unrecogniz ed section and content) Reason Comments Refill Request Reason Comments F/U 4 month Reason Comments Education Of Patient/family Reason Comments Hospital F/U Reason Comments send copy results of CMP to Dr Guillermina of [facility] Reason Comments Hospital F/U Reason Comments Lab Orders Care Teams (unrecognized sec tion and content) Automatic Vulcanizing Lead Operator Relationship Specialty Start Date End Date Molly Ortiz MD [address] [place], [place] [id number] PCP - General Internal Medicine 03/06/10 Automatic Vulcanizing Lead Operator Relationship Specialty Start Date End Date Molly Ortiz MD [address] [place] [address] PCP - General Internal Medicine 03/06/10 Automatic Vulcanizing Lead Operator Relationship Specialty Start Date End Date Molly Ortiz MD [address] [place] [address] PCP - General Internal Medicine 03/06/10 Automatic Vulcanizing Lead Operator Relationship Specialty Start Date End Date Molly Ortiz MD [address] [place] [address] PCP - General Internal Medicine 03/06/10 Automatic Vulcanizing Lead Operator Relationship Specialty Start Date End Date Molly Ortiz MD [address] [place] [address] PCP - General Internal Medicine 03/06/10 Automatic Vulcanizing Lead Operator Relationship Specialty Start Date End Date Molly Ortiz MD [address] [place], [place] [id number] PCP - General Internal Medicine 03/06/10 Automatic Vulcanizing Lead Operator Relationship Specialty Start Date End Date Molly Ortiz MD [address] [place], [place] [id number] PCP - General Internal Medicine 03/06/10 Automatic Vulcanizing Lead Operator Relationship Specialty Start Date End Date Molly Ortiz MD [address] [place] [address] PCP - General Internal Medicine 03/06/10 Automatic Vulcanizing Lead Operator Relationship Specialty Start Date End Date Molly Ortiz MD [address] [place] [address] PCP - General Internal Medicine 03/06/10 (unrecognized sect ion and content) No Status Records Found INFORMATION SOURCE (unrecogn ized section and content) FOR RECORDS PERTAINING TO PATIENTS WHO ARE OR HAVE BEEN ENROLLED IN A CHEMICAL DEPENDENCY/SUBSTANCEABUSE PROGRAM, SOME INFORMATION MAY BE OMITTED. This clinical summary was aggregated from multiple sources. Caution should be exercised in using it in the provision of clinical care. This summary normalizes information from multiple sources, and as a consequence, information in this document may materially change the coding, format and clinical context of patient data. In addition, data may be omitted in some cases. CLINICAL DECISIONS SHOULD BE BASED ON THE PRIMARY CLINICAL RECORDS. [employer] provides no warranty or guarantee of the accuracy or completeness of information in this document.
== END | disposition home or self-care (01) ==
PROVIDERS: PCP Internal Medicine; Referring Provider Internal Medicine Gastroenterology; Visit Provider Internal Medicine Gastroenterology
DX: K75.4 Autoimmune hepatitis (principal); R79.89 Other specified abnormal findings of blood chemistry
CPT/HCPCS: 36415

== ENCOUNTER → 2024-02-07 | Outpatient (CLI) | payer OTHER, SELFPAY ==
[2024-02-11 01:07] LABS: Lyme IgG P18 Ab Absent (.); Lyme IgG P23 Ab Absent (.); Lyme IgG P28 Ab Absent (.); Lyme IgG P30 Ab Absent (.); Lyme IgG P39 Ab Absent (.); Lyme IgG P41 Ab Absent (.); Lyme IgG P45 Ab Absent (.); Lyme IgG P58 Ab Present (.); Lyme IgG P66 Ab Absent (.); Lyme IgG P93 Ab Absent (.); Lyme IgG WB Interpretation Negative (.); Lyme IgM P23 Ab Absent (.); Lyme IgM P39 Ab Absent (.); Lyme IgM P41 Ab Absent (.); Lyme IgM WB Interpretation Negative (.)
== END | disposition home or self-care (01) ==
LOC: MTLAB 08:50
PROVIDERS: PCP Internal Medicine; Referring Provider Physician Assistant; Visit Provider Physician Assistant
DX: L53.1 Erythema annulare centrifugum (principal)
CPT/HCPCS: 36415; 86617

== ENCOUNTER → 2025-03-09 | Outpatient (CLI) | payer BC, SELFPAY ==
--- NOTE | 2025-03-09 19:02 | CT_ITS ---
PROCEDURE: ABDOMEN/PELVIS WITHOUT CONT 03/09/2025 REASON FOR EXAM: GROSS HEMATURIA Right flank pain. History of kidney stones. TECHNIQUE: Procedure Code: [id number] Modality: CT Procedure: ABDOMEN/PELVIS WITHOUT CONT Noncontrast technique limits evaluation of the abdominal and pelvic viscera. Coronal and Sagittal reconstruction series were provided. One or more dose reduction techniques were used (e.g., Automated exposure control, adjustment of the mA and/or kV according to patient size, use of iterative reconstruction technique). RADIATION DOSE SUMMARY: CTDlvol: 10.50 mGy DLP: 571.06 mGycm COMPARISON: October 18, 2022. FINDINGS: Lung bases: Lung bases are clear. Liver: Normal size. No obvious mass. Gallbladder: Surgically absent. Spleen: Normal size. Pancreas: Normal size. No surrounding inflammation. Adrenals: Unremarkable Kidneys: 3 mm nonobstructive calculus in the upper pole calyx of the left kidney. Punctate calculus in the lower pole calyx of the left kidney. 3 mm nonobstructive calculus in the right renal pelvis. Fullness of the upper pole calyx of the right kidney. 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 Bladder: Unremarkable Unremarkable Bowel: Scattered sigmoid diverticula. Appendix: Unremarkable Lymph nodes: Unremarkable. Vasculature: The abdominal aorta and IVC contours are normal. Noncontrast technique limits evaluation. Peritoneum / Retroperitoneum: Unremarkable Bones: CT/Abdomen/Pelvis without Cont IMPRESSION: Nonobstructive bilateral intrarenal calculi. 3 mm calculus in the right renal pelvis with fullness of the upper pole calyx o f the right kidney suggestive of possible duplicated collecting system. Reading Location: [id number]
== END | disposition home or self-care (01) ==
LOC: CT 18:58
PROVIDERS: PCP Internal Medicine; Referring Provider Urology; Visit Provider Urology
DX: R31.0 Gross hematuria (principal)
CPT/HCPCS: 74176

== ENCOUNTER → 2025-03-19 | Outpatient (CLI) | payer BC, SELFPAY ==
--- NOTE | 2025-03-19 07:59 | EKG12_ITS ---
Test Reason : PREOP Blood Pressure : */* mmHG Vent. Rate : 71 BPM Atrial Rate : 71 BPM P-R Int : 154 ms QRS Dur : 80 ms QT Int : 404 ms P-R-T Axes : -14 -25 6 degrees QTcB Int : 439 ms Normal sinus rhythm Moderate voltage criteria for LVH, may be normal variant Borderline ECG Confirmed by WOLF WOOD ([id number]), industrial editor BARB DIAZ ([id number]) on 03/22/2025 6:12:08 AM Referred By: Walt Robins Confirmed By: WOLF WOOD
--- OUTSIDE RECORDS SUMMARY | 2025-03-19 08:20 | XMS RPT_ITS | CCD ---
Author Organization [facility] Care Team Providers Care Accounts Collector Name Role Phone Molly Kearns MD Primary Care Provider Dr. Molly Kearns Primary Care Provider Dr. Noe Barbour Emergency Provider Dr. Darrius Rubalcava Admit Provider Dr. Darrius Rubalcava Attending Provider [phone] Darrius Rubalcava Other Provider Dr. Bryson Merritt Attending Provider [phone] Friend, Dr. Kasper Attending Provider Dr. Mao Yadav Other Provider UnavailMolly Vargas MD Primary Care Provider Dr. Molly Kearns Primary Care Provider Dr. Molly Kearns Referring Provider Dr. Ebenezer Arais Attending Provider [phone] Viry Paul Attending Provider Ebenezer Arias Unavailable Molly Kearns MD Primary Care Provider Molly Kearns Referring Unavailable Viry Paul Attending Unavailable Molly Kearns Primary Care Unavailable Molly Kearns Primary Care Unavailable Migdalia Cedillo Attending Unavailable Migdalia Cedillo Referring Unavailable Ranjith Sarmiento Attending Unavailable Ranjith Sarmiento Referring Unavailable Molly Kearns Primary Care Unavailable Molly Kearns Referring Unavailable Ebenezer Arias Attending Unavailable Talampas, Molly D Primary Care Unavailable Talampas, Molly D Referring Unavailable Hugo, Ebenezer Attending Unavailable Talampas, Molly D Primary Care Unavailable Bajwa DRY WALL SPRAYER.BAGGAGEMASTER, Bety Unavailable Gloria DRY WALL SPRAYER.VENEER JOINTER RETURNER, Jean Unavailable Gloria DRY WALL SPRAYER.VENEER JOINTER RETURNER, Jean Unavailable Gloria DRY WALL SPRAYER.VENEER JOINTER RETURNER, Jean Unavailable Gloria DRY WALL SPRAYER.VENEER JOINTER RETURNER, Jean Unavailable Bajwa DRY WALL SPRAYER.BAGGAGEMASTER, Bety Unavailable TALAMPAS, MOLLY D Referring Unavailable TALAMPAS, MOLLY D Primary Care Unavailable TALAMPAS, MOLLY D Primary Care Unavailable TALAMPAS, MOLLY D Attending Unavailable TALAMPAS, MOLLY D Referring Unavailable TALAMPAS, MOLLY D Primary Care Unavailable TALAMPAS, MOLLY D Referring Unavailable TALAMPAS, MOLLY D Primary Care Unavailable MITCH HERNANDEZ Attending Unavailable TALAMPAS, MOLLY D Primary Care Unavailable FRANCISCO SANCHEZ Attending Unavailable SANCHEZFRANCISCO Referring Unavailable TALAMPAS, MOLLY D Primary Care Unavailable SANCHEZFRANCISCO Referring Unavailable TALAMPAS, MOLLY D Primary Care Unavailable TALAMPAS, MOLLY D Attending Unavailable TALAMPAS, MOLLY D Primary Care Unavailable TALAMPAS, MOLLY D Primary Care Unavailable Allergies Allergy Classification Reported Allergen(s) Allergy Type Date of Onset Reaction(s) Facility (10 sources) [facility]ie [facility] [Other] Propensity to adverse reactions 5 [facility] Work Phone: (3 sources) Clemastine Drug Allergy 1 [facility] (3 sources) Pseudoephedrine Drug Allergy 1 [facility] (1 source) Clemastine Drug Allergy 4 [facility] (1 source) Pseudoephedrine Drug Allergy 4 [facility] Medications Current Medications Medication Drug Class(es) Dates Sig (Normalized) Sig (Original) benazepril hydrochloride 10 mg / hydroCHLOROthiazide 12.5 mg oral tablet (20 sources) Thiazide Diuretic, Angiotensin Converting Enzyme Inhibitor Start: 04-01-2023 End: 06-22-2024 take 1 tablet by mouth once daily as needed Benazepril-hydroC HLOROthiazide 10-12.5 mg per tablet Indications: Essential hypertension Take 1 tablet by mouth once daily as needed. For SBP >130 90 tablet 1 06/22/2024 Active Start: 07-09-2022 take 1 tablet by edyta th once daily Benazepril-hydroCHLOROthiazide 10-12.5 m g per tablet Take 1 tablet by mouth once daily. 90 tablet 3 07/09/2022 Active Start: 04-26-2021 End: 07-07-2022 take 1 tablet by mouth once daily Benazepril-hydroCHLOROthiazide 10-12.5 m g per tablet Take 1 tablet by mouth once daily. 90 tablet 3 04/26/2021 07/07/2022 Discontinued Start: 06-07-2020 take 0.5 tablet by mouth once daily Benazepril-Hydrochlorothiazide Active 0. 5 TABLET PO DAILY June 07, 2020 12:00am Comment on above: Take 1 tablet by edyta th once daily. CPAP (20 sources) Start: 11-16-2019 CPAP Indications: SOLO (obstructive sleep apnea) Initiate Auto PAP @ 5-20 cm of water with humidification. Mask (per patient preference) optional chin strap (if indicated) , filters, tubing, humidifier and lifetime supplies. 1 Device 11/16/2019 Active Start: 11-16-2019 CPAP Indicatio ns: SOLO (obstructive sleep apnea) Initiate Auto PAP @ 5-20 cm of water with humidification. Mask (per patient preference) optional chin strap (if indicated) , filters, tubing, humidifier and lifetime supplies. 1 Device 0 11/16/2019 Active Start: 05-19-2019 CPAP Needs new APAP @ cm of water with humidification. Mask (per patient preference) optional chin strap (if indicated) , filters, tubing, humidifier and lifetime supplies. Diagnosis: SOLO G47.33 1 Device 05/19/2019 Active Start: 05-19-2019 CPAP Needs new APAP @ cm of water with humidification. Mask (per patient preference) optional chin strap (if indicated) , filters, tubing, humidifier and lifetime supplies. Diagnosis: SOLO G47.33 1 Device 0 05/19/2019 Active Comment on above: Needs new APAP @ cm of water with humidification. Mask (per patient preference) optional chin strap (if indicated) , filters, tubing, humidifier and lifetime supplies. Diagnosis: SOLO G47.33 Initiate Auto PAP @ 5-20 cm of water with humidification. Mask (per patient preference) optional chin strap (if indicated) , filters, tubing, humidifier and lifetime supplies. Fish Oil-DHA-EPA 1,200-144-216 mg cap (20 sources) Start: 01-05-2011 Fish Oil-DHA-EPA 1,200-144-216 mg cap Take 2 capsules by mouth once daily. 0 01/05/2011 Active Comment on above: Take 2 capsules by m outh once daily. Flash Glucose Scanning [place] (Freestyle Brenda 14 Day [place]) mis (1 source) Start: 03-18-2023 Flash Glucose Scanning [place] (Freestyle Brenda 14 Day [place] [facility] [place] .ROUTE March 18, 2023 12:00am As directed flash glucose scanning reader (FREESTYLE BRENDA 2 READER) (20 sources) Start: 11-05-2023 flash glucose scanning reader (FREESTYLE BRENDA 2 READER) Indications: Type 2 diabetes mellitus without complication, with long-term current use of insulin (HCC) 1 Each once daily. 1 Each 3 11/05/2023 Active Start: 08-16-2023 End: 08-17-2023 flash glucose scanning reade r (FREESTYLE BRENDA 2 READER) Indications: Type 2 diabetes mellitus without complication, with long-term current use of insulin (HCC) Use to check blood sugar at least four (4) times daily. 1 Each 0 08/16/2023 08/17/2023 Active Start: 10-26-2022 End: 10-27-2022 flash glucose scanning reade r (FREESTYLE BRENDA 2 READER) Indications: Type 2 diabetes mellitus without complication, with long-term current use of insulin (HCC) Use to check blood sugar at least four (4) times daily. 1 Each 0 10/26/2022 10/27/2022 Comment on above: Use to check blood s ugar at least four (4) times daily. flash glucose sensor (FREESTYLE BRENDA 2 SENSOR) kit (20 sources) Start: 10-05-2024 flash glucose sensor (FREESTYLE BRENDA 2 SENSOR) kit Indications: Type 2 diabetes mellitus without complication, with long-term current use of insulin (HCC) Apply new sensor every fourteen (14) days to upper arm. 6 each 4 10/05/2024 Active Start: 06-01-2024 End: 10-02-2024 flash glucose sensor (FREEST YLE BRENDA 2 SENSOR) kit Indications: Type 2 diabetes mellitus without complication, with long-term current use of insulin (HCC) Apply new sensor every fourteen (14) days to upper arm. 6 Each 4 06/01/2024 10/02/2024 Discontinued Start: 06-01-2024 flash glucose sensor (FREESTYLE BRENDA 2 SENSOR) kit Indications: Type 2 diabetes mellitus without complication, with long-term current use of insulin (HCC) Apply new sensor every fourteen (14) days to upper arm. 6 Each 4 06/01/2024 Active Start: 12-02-2023 End: 06-01-2024 flash glucose sensor (FREEST YLE BRENDA 2 SENSOR) kit Indications: Type 2 diabetes mellitus without complication, with long-term current use of insulin (HCC) Apply new sensor every fourteen (14) days to upper arm. 6 Each 4 12/02/2023 06/01/2024 Discontinued Start: 12-02-2023 flash glucose sensor (FREESTYLE BRENDA 2 SENSOR) kit Indications: Type 2 diabetes mellitus without complication, with long-term current use of insulin (HCC) Apply new sensor every fourteen (14) days to upper arm. 6 Each 12/02/2023 Active Start: 04-01-2023 End: 12-02-2023 flash glucose sensor (FREEST YLE BRENDA 2 SENSOR) kit Indications: Type 2 diabetes mellitus without complication, with long-term current use of insulin (HCC) Apply new sensor every fourteen (14) days to upper arm. 6 Each 4 04/01/2023 12/02/2023 Discontinued Start: 04-01-2023 flash glucose sensor (FREESTYLE BRENDA 2 SENSOR) kit Indications: Type 2 diabetes mellitus without complication, with long-term current use of insulin (HCC) Apply new sensor every fourteen (14) days to upper arm. 6 Each 4 04/01/2023 Active Start: 10-26-2022 flash glucose sensor (FREESTYLE BRENDA 2 SENSOR) kit Indications: Type 2 diabetes mellitus without complication, with long-term current use of insulin (HCC) Apply new sensor every fourteen (14) days to upper arm. 6 Each 4 10/26/2022 Active Comment on above: Apply new sensor ga ry fourteen (14) days to upper arm. fluticasone propionate 0.05 mg/actuat metered dose nasal spray (20 sources) Corticosteroid Start: 1 End: 4 take 2 spray(s) nasal route once daily fluticasone (FLONASE) 50 mcg/actuation nasal spray Use 2 Sprays in each nostril once daily. 3 Each 3 11/26/2023 Active Start: 06-07-2020 Fluticasone Pr opionate Active 1 SPRAY NASAL DAILY June 07, 2020 12:00am Comment on above: Use 2 Sprays in each nostril once daily. gemfibrozil 600 mg oral tablet (20 sources) Peroxisome Proliferator Receptor alpha Agonist Start: 021 End: 025 take 1 tablet by mouth twice daily gemfibrozil (LOPID) 600 mg tablet Take 1 tablet by mouth two times a day. 180 tablet 3 10/22/2024 Active Comment on above: Take 1 tablet by edyta twice daily. 3 ml insulin lispro 100 unt/ml pen injector (20 sources) Insulin Analog Start: 023 inject 4 [IU] by subcutaneous injection three times daily before mealtime as needed insulin lispro (HUMALOG KWIKPEN INSULIN) 100 unit/mL Inject 4 Units subcutaneously three times a day before meals. Will titrate up as needed up to 40 units per day 5 Each 3 04/01/2023 Active Start: 03-18-2023 Insulin Lispro (Humalog Kwikpen Insulin) 100 unit/mL insulin pen Active 4 UNIT SC THREE TIMES A DAY March 18, 2023 12:00am Start: 10-24-2022 inject 4 [IU] by sub cutaneous injection three times daily before mealtime as needed insulin lispro (HUMALOG KWIKPEN INSULIN) 100 unit/mL Inject 4 Units subcutaneously three times daily before meals. Will titrate up as needed up to 40 units per day 5 Each 1 10/24/2022 Active Comment on above: Inject 4 Units subcu taneously three times daily before meals. Will titrate up as needed up to 40 units per day Inject 4 Units subcu taneously three times a day before meals. Will titrate up as needed up to 40 units per day loratadine 10 mg oral tablet (20 sources) Start: 04-09-20 End: 12-25-19 take 1 tablet by mouth once daily loratadine (CLARITIN) 10 mg tablet Take 1 tablet by mouth once daily. 90 tablet 3 12/26/2023 Active Comment on above: Take 1 tablet by edyta th once daily. Take one(1) tablet d aily. methylcellulose 500 mg oral tablet (20 sources) Start: 03-26-20 17 Methylcellulose, Laxative, 500 mg tab Take by mouth. 0 03/26/2017 Active Comment on above: Take by mouth. Multivitamin preparation (3 sources) Start: 06-07-19 21 Multivitamin Active 1 EACH PO DAILY June 07, 2020 12:00am Start: 06-07-2020 Multivitamin A ctive 1 EACH PO DAILY June 07, 2020 1:00am MULTIVITAMIN TAB (20 sources) Start: 04-09-2005 MULTIVITAMIN T AB Take one(1) tablet daily. 0 04/09/2005 Active Comment on above: Take one(1) tablet d aily. [place] 0-Mvg-Uox-Fish Oil (Fish Oil) 1,200 (144-216) mg capsule (3 sources) Start: 10-18-2022 [place] 3-Dha-Ep a-Fish Oil (Fish Oil) 1,200 (144-216) mg capsule Active CAP PO October 17, 2022 11:00pm Start: 10-18-2022 [place] 3-Dha-Ep a-Fish Oil (Fish Oil) 1,200 (144-216) mg capsule Active CAP PO October 18, 2022 12:00am potassium citrate 15 meq extended release oral tablet (20 sources) Start: 07-09-2022 End: 12-02-2023 take 1 tablet by mouth twice daily Potassium Citrate 15 mEq TbER Take 1 tablet by mouth two times a day. 180 tablet 3 12/02/2023 Active Start: 07-08-2021 End: 07-07-2022 take 1 tablet by mouth twice daily Potassium Citrate 15 mEq TbER Take 1 tablet by mouth twice daily. 180 tablet 3 07/08/2021 07/07/2022 Discontinued Comment on above: Take 1 tablet by edyta th twice daily. Take 1 tablet by edyta th two times a day. vitamin e 268 mg oral capsule (9 sources) Start: 06-22-2024 take 2 capsules by mouth once daily Vitamin E, dl, acetate, (VITAMIN E) 400 unit capsule Indications: Metabolic dysfunction-associat ed steatotic liver disease (MASLD) Take 2 capsules by mouth once daily. 06/22/2024 Active Completed/Discontinued Medications Medication Drug Class(es) Dates Sig (Normalized) Sig (Original) acetaminophen 325 mg / HYDROcodone bitartrate 5 mg oral tablet (6 sources) Opioid Agonist Start: 06-09-2020 End: 06-16-2020 take 1 tablet by mouth every four hours as needed Hydrocodone-Acetami nophen Discontinued 1 TABLET PO EVERY 4 HOURS NEEDED 14 7 June 09, 2020 June 16, 2020 12:03am Start: 06-04-2020 End: 06-07-2020 take 1 tablet by mouth every six hours as needed Hydrocodone-Acetaminophen Discontinued 1 TABLET PO EVERY 6 HOURS NEEDED 10 3 June 04, 2020 June 07, 2020 12:03am ciprofloxacin 500 mg oral tablet (3 sources) Quinolone Antimicrobial Start: 06-09-2020 End: 11-16-2022 take 500 mg by mouth twice daily Ciprofloxacin Hcl Discontinued 500 MG PO TWICE A DAY June 09, 2020 12:00am November 16, 2022 12:40pm Fish Oil-DHA-EPA (FISH OIL) 1,200-144-216 mg ORAL Cap (1 source) Start: 01-05-2011 Fish Oil-DHA-EPA (FISH OIL) 1,200-144-216 mg ORAL Cap Take 2 capsules by mouth once daily. 0 01/05/2011 Active Comment on above: Take 2 capsules by m out once daily. 3 ml insulin glargine 100 unt/ml pen injector (16 sources) Insulin Analog Start: 10-24-2022 End: 12-02-2023 inject 100 [IU] by subcutaneous injection once daily at bedtime insulin glargine (LANTUS SOLOSTAR U-100 INSULIN) 100 unit/mL (3 mL) Inject 10-30 Units subcutaneously daily at bedtime. As directed 5 Each 1 10/24/2022 12/02/2023 Discontinued Start: 10-24-2022 inject 100 [IU] by s ubcutaneous injection once daily at bedtime insulin glargine (LANTUS SOLOSTAR U-100 INSULIN) 100 unit/mL (3 mL) Inject 10-30 Units subcutaneously daily at bedtime. As directed 5 Each 1 10/24/2022 Active Comment on above: Inject 10-30 Units s ubcutaneously daily at bedtime. As directed ketorolac tromethamine 10 mg oral tablet (3 sources) Nonsteroidal Anti-inflammatory Drug, Cyclooxygenase Inhibitor Start: 06-04-19 End: 11-17-19 take 10 mg by mouth every six hours Ketorolac Discontinued 10 MG PO EVERY 6 HOURS June 04, 2020 6:52pm November 16, 2022 12:40pm linseed oil 1000 mg oral capsule (3 sources) Start: 06-07-19 End: 11-17-19 take 1000 mg by mouth once daily Flaxseed Oil Discontinued 1000 MG PO DAILY June 07, 2020 12:00am November 16, 2022 12:41pm ondansetron 4 mg disintegrating oral tablet (3 sources) Serotonin-3 Receptor Antagonist Start: 06-04-19 End: 04-04-20 take 4 mg by mouth every eight hours as needed Ondansetron Discontinued 4 MG PO EVERY 8 HOURS NEEDED June 04, 2020 12:00am April 04, 2023 10:33am predniSONE 10 mg oral tablet (4 sources) Start: 10-24-19 predniSONE (DELTASONE) 10 mg tablet Take 50 mg by mouth once daily. Taper from 60mg down to 0mg. 0 10/23/2022 Active Comment on above: Take 50 mg by mouth once daily. Taper from 60mg down to 0mg. tamsulosin hydrochloride 0.4 mg oral capsule (3 sources) alpha-Adrenergic Truong Start: 06-04-19 End: 11-17-19 take 0.4 mg by mouth once daily Tamsulosin Discontinued 0.4 MG PO DAILY June 04, 2020 12:00am November 16, 2022 12:40pm traMADol hydrochloride 50 mg oral tablet (2 sources) Opioid Agonist Start: 10-23-19 End: 04-04-20 take 50 mg by mouth every six hours Tramadol Discontinued 50 MG PO EVERY 6 HOURS October 21, 2022 11:00pm April 04, 2023 10:34am Problems Active Problems Problem Classification Problem Date Documented Date Episodic/Chronic Abdominal pain (5 sources) Abdominal pain; Translations: [Unspecified abdominal pain] 10-18-2022 Episodic Biliary tract disease (5 sources) Cholangiectasis; Translations: [Other specified diseases of biliary tract] 10-18-2022 Chronic Biliary tract disease (5 sources) Acute cholecystitis; Translations: [Acute cholecystitis] 10-18-2022 Episodic Calculus of urinary tract (8 sources) Kidney stone; Translations: [Calculus of kidney] Onset: 01-13-2025 Episodic Diabetes mellitus with complications (2 sources) Type 2 diabetes mellitus; Translations: [Type 2 diabetes mellitus with hyperglycemia] Onset: 03-06-2024 03-22-2023 Chronic Diabetes mellitus without complication (20 sources) Type 2 diabetes mellitus without complication; Translations: [Type 2 diabetes mellitus without complications] Onset: 01-05-2011 Resolved: 08-31-2015 Chronic Disorders of lipid metabolism (20 sources) Mixed hyperlipidemia; Translations: [Mixed hyperlipidemia] Chronic Essential hypertension (20 sources) Essential hypertension; Translations: [Essential (primary) hypertension] Onset: 03-23-2015 Chronic Hepatitis (20 sources) Nonalcoholic steatohepatitis; Translations: [Nonalcoholic steatohepatitis (NICOLE)] Onset: 05-14-2018 Chronic Hepatitis (4 sources) Acute hepatitis; Translations: [Acute viral hepatitis, unspecified] 10-20-2022 Episodic Immunity disorders (4 sources) Hypogammaglobulinemia ; 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 ] Onset: 03-06-2024 03-02-2024 Chronic Immunizations and screening for infectious disease (9 sources) Vaccination needed; Translations: [Encounter for immunization] Onset: 06-22-2024 Episodic Other aftercare (2 sources) Patient encounter status; Translations: [Other retirement (current) drug therapy] Episodic Other aftercare (2 sources) Long-term current use of drug therapy; Translations: [Other retirement (current) drug therapy] 12-02-2023 Episodic Other inflammatory condition of skin (1 source) Erythema annulare centrifugum; Translations: [Erythema annulare centrifugum] Onset: 02-28-2024 Episodic Other liver diseases (2 sources) Steatosis of liver; Translations: [Fatty (change of) liver, not elsewhere classified] 08-16-2023 Chronic Other liver diseases (4 sources) Disease of liver; Translations: [Liver disease, unspecified] 09-26-2023 Chronic Other liver diseases (2 sources) Fatty (change of) liver, not elsewhere classified; Translations: [Other chronic nonalcoholic liver disease] Onset: 06-22-2024 06-22-2024 Chronic Other liver diseases (1 source) Liver disease, unspecified; Translations: [Liver disease] Onset: 03-06-2024 Chronic Other liver diseases (5 sources) Enzyme level - finding; Translations: [Elevated transaminase measurement] 10-18-2022 Episodic Other nutritional; endocrine; and metabolic disorders (2 sources) Hemochromatosis; Translations: [Hemochromatosis, unspecified] 10-21-2022 Chronic Other nutritional; endocrine; and metabolic disorders (2 sources) Hyperbilirubinemia; Translations: [Other disorders of bilirubin metabolism] 10-19-2022 Chronic Other nutritional; endocrine; and metabolic disorders (2 sources) Hemochromatosis, unspecified; Translations: [Other hemochromatosis] 10-23-2022 Chronic Other nutritional; endocrine; and metabolic disorders (1 source) Other disorders of bilirubin metabolism; Translations: [Jaundice, unspecified, not of ] 10-23-2022 Chronic Other nutritional; endocrine; and metabolic disorders (20 sources) Hereditary hemochromatosis; Translations: [Hereditary hemochromatosis] Onset: 10-26-2022 10-26-2022 Chronic Other nutritional; endocrine; and metabolic disorders (2 sources) Hereditary hemochromatosis; 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] Onset: 10-26-2022 Chronic Other screening for suspected conditions (not mental disorders or infectious disease) (20 sources) Protein level - finding; Translations: [Other specified abnormal findings of blood chemistry] Onset: 06-04-2008 Episodic Other upper respiratory disease (20 sources) Allergic rhinitis; Translations: [Allergic rhinitis, unspecified] Onset: 06-04-2008 08-31-2015 Chronic Pancreatic disorders (not diabetes) (10 sources) Gallstone acute pancreatitis; Translations: [Biliary acute pancreatitis without necrosis or infection] 10-18-2022 Episodic Screening and history of mental health and substance abuse codes (2 sources) Encounter for screening examination for other mental health and behavioral disorders; Translations: [Encounter for screening for depression] Onset: 01-13-2025 Episodic Past or Other Problems Problem Classification Problem Date Documented Da te Episodic/Chronic Diabetes mellitus without complication (20 sources) Impaired fasting glycemia; Translations: [Impaired fasting glucose] Onset: 08-31-2015 Resolved: 08-16-2023 08-31-2015 Episodic Other aftercare (1 source) Other terminal clerk (current) drug therapy; Translations: [Encounter for long-term current use of medication] Onset: 03-06-2024 Episodic Other aftercare (2 sources) FPC (current) use of insulin; Translations: [Type 2 diabetes mellitus with hyperglycemia, with long-term current use of insulin (HCC)] Onset: 03-06-2024 Episodic Other nutritional; endocrine; and metabolic disorders (20 sources) Obesity; Translations: [Obesity, unspecified] Resolved: 03-23-2015 03-23-2015 Chronic Residual codes; unclassified (20 sources) Sleep apnea; Translations: [Sleep apnea, unspecified] Resolved: 09-11-2016 09-11-2016 Chronic Results Test Name Value Interpretation Reference Range Facility [facility] 01-18-2025 [facility] Telephone (INTM[facility]) LONNIE GAVIRIA ([id number]) 1965 M Date Time Provider Department 01/18/25 MOLLY KEARNS INTWS During your visit today, we recorded the following information about you: Traci Jordan RN 01/18/2025 10:15 AM Signed Patient calls and states that he has had a couple of kidney stone attacks the past couple of weeks. Patient would like to go and see Dr. Robins whom he has seen for this before. Patient asking if provider can place referral for this? Please review and advise, GUNNAR Reese Stephanie, RN 01/20/2025 1:05 PM Signed Patient calling to see the status of this request. GUNNAR Reese Liza D, MD 01/20/2025 1:16 PM Signed Filed order Giuliana Hardin LPN 01/20/2025 2:23 PM Signed Patient notified. Referral sent to Dr. Robins office. Allergies As of Date: 01/18/2025 (No Known Allergies) Date Reviewed: 01/13/2025 Reviewed by: Giuliana Hardin LPN - Fully Assessed Reason for Visit: Orders [681] Primary Visit Diagnosis:Recurrent kidney stones [N20.0] Order(s):CONSULT TO NON-[facility] FACILITY [[id number]] Order #: [id number] Prescriptions as of 01/20/2025 - insulin lispro (HUMALOG KWIKPEN INSULIN) 100 unit/mL Inject 4 Units subcutaneously three times a day before meals. Will titrate up as needed up to 40 units per day - insulin glargine (LANTUS SOLOSTAR U-100 INSULIN) 100 unit/mL (3 mL) Inject 10-30 Units subcutaneously daily at bedtime. As directed - fluticasone (FLONASE) 50 mcg/actuation nasal spray Use 2 sprays in each nostril once daily. - loratadine (CLARITIN) 10 mg tablet Take 1 tablet by mouth once daily. - Potassium Citrate 15 mEq TbER Take 1 tablet by mouth two times a day. - gemfibrozil (LOPID) 600 mg tablet Take 1 tablet by mouth two times a day. - flash glucose sensor (FREESTYLE BRENDA 2 SENSOR) kit Apply new sensor every fourteen (14) days to upper arm. - Vitamin E, dl, acetate, (VITAMIN E) 400 unit capsule Take 2 capsules by mouth once daily. - Benazepril-hydroCHLO ROthiazide 10-12.5 mg per tablet Take 1 tablet by mouth once daily as needed. For SBP >130 - flash glucose scanning reader (FREESTYLE BRENDA 2 READER) 1 Each once daily. - blood sugar diagnostic (FREESTYLE LITE STRIPS) test strip Test blood sugar(s) up to 4 times daily. Dx: Type 2 DM - Uncontrolled E11.65 Insulin: Yes Dispense if reader for Freestyle Brenda 2 can use these test strips - insulin needles, DISPOSABLE, (PEN NEEDLE) 31 gauge x 5/16" Use one needle per dose. 4 per day. - CPAP Initiate Auto PAP @ 5-20 cm of water with humidification. Mask (per patient preference) optional chin strap (if indicated) , filters, tubing, humidifier and lifetime supplies. - CPAP Needs new APAP @ cm of water with humidification. Mask (per patient preference) optional chin strap (if indicated) , filters, tubing, humidifier and lifetime supplies. Diagnosis: SOLO G47.33 - Methylcellulose, Laxative, 500 mg tab Take by mouth. - Fish Oil-DHA-EPA 1,200-144-216 mg cap Take 2 capsules by mouth once daily. - MULTIVITAMIN TAB Take one(1) tablet daily. Problem List As Of Date 01/18/2025 Noted Resolved Essential hypertension [I10] Mixed hyperlipidemia [E78.2] OBESITY NOS [E66.9] 03/23/2015 Unspecified sleep apnea [G47.30] 09/11/2016 Allergic rhinitis [J30.9] 06/04/2008 ABNORMAL LIVER FUNCTION STUDY [R94.5] 06/04/2008 Diabetes mellitus type 2, controlled, without c*01/05/2011 08/31/2015 IFG (impaired fasting glucose) [R73.01] 08/31/2015 08/16/2023 Type 2 diabetes mellitus without complication, *03/26/2017 NICOLE (nonalcoholic steatohepatitis) [K75.81] 05/14/2018 Elevated ferritin [R79.89] 05/14/2018 Elevated antibody levels--Anti smooth muscle an*05/21/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 HPI HISTORY Lonnie Denton is a 59-year-old male with a history of DM and nephrolithiasis, presenting for evaluation of recent kidney stone passage and left arm pain. Lonnie reports experiencing symptoms consistent with nephrolithiasis, beginning on Saturday with mild bilateral flank pain rated at 1-1.5/10. The pain persisted and intensified, reaching 4/10, and fluctuated in intensity. On Saturday, the pain escalated to 8/10, described as feeling like somebody [hit] a fist right here," accompanied by diaphoresis and hot flashes. The pain subsided to 0.2/10 by the time of the visit. Lonnie also noted hematuria today, which he attributes to the passage of a kidney stone. He denies any recent imaging studies or follow-up with a urologist since his last episode in May, when he experienced similar symptoms and passed a stone spontaneously. Lonnie has a history of nephrolithiasis, with a previous episode in May that resolved spontaneously. He also underwent lithotripsy in 2020. He reports that his blood glucose levels have been elevated during the past three days, with readings as high as 190-200 mg/dL, which he attributes to the stress and pain from the kidney stone. He has not used his insulin recently but requests a refill for emergency use. Additionally, Lonnie reports chronic left arm pain, localized to the triceps and deltoid muscles, which has been present for several months. The pain is exacerbated by certain movements, such as reaching into the refrigerator or mailbox, and is described as a cramping sensation. He denies any specific injury or trauma to the arm. PAST MEDICAL HISTORY Diagnosis Date Allergic rhinitis, [...] (FLONASE) 50 mcg/actuation nasal spray Use 2 sprays in each nostril once daily. loratadine (CLARITIN) 10 mg tablet Take 1 tablet by mouth once daily. Potassium Citrate 15 mEq TbER Take 1 tablet by mouth two times a day. gemfibrozil (LOPID) 600 mg tablet Take 1 tablet by mouth two times a day. flash glucose sensor (FREESTYLE BRENDA 2 SENSOR) kit Apply new sensor every fourteen (14) days to upper arm. Vitamin E, dl, acetate, (VITAMIN E) 400 unit capsule Take 2 capsules by mouth once daily. Benazepril-hydroCHLO ROthiazide 10-12.5 mg per tablet Take 1 tablet by mouth once daily as needed. For SBP >130 flash glucose scanning reader (FREESTYLE BRENDA 2 READER) 1 Each once daily. blood sugar diagnostic (FREESTYLE LITE STRIPS) test strip Test blood sugar(s) up to 4 times daily. Dx: Type 2 DM - Uncontrolled E11.65 Insulin: Yes Dispense if reader for Freestyle Brenda 2 can use these test strips insulin needles, DISPOSABLE, (PEN NEEDLE) 31 gauge x 5/16" Use one needle per dose. 4 per day. CPAP Initiate Auto PAP @ 5-20 cm [...] daily. MULTIVITAMIN TAB Take one(1) tablet daily. insulin lispro (HUMALOG KWIKPEN INSULIN) 100 unit/mL Inject 4 Units subcutaneously three times a day before meals. Will titrate up as needed up to 40 units per day insulin glargine (LANTUS SOLOSTAR U-100 INSULIN) 100 unit/mL (3 mL) Inject 10-30 Units subcutaneously daily at bedtime. As directed No current facility-administere d medications for this visit. ALLERGIES No Known Allergies FAMILY HISTORY Problem Relation Age of Onset Heart Mother Hypertension Mother Arthritis Mother fibromyalgia Chronic Kidney Disease Mother Coronary Artery Disease Father age 54 Diabetes Father other (Spina bifida) Sister other (Congenital Kidney problems) Sister o (more content not included)... [facility] Nurse Visit (FAMPWS) LONNIE GAVIRIA ([id number]) 1965 M Date Time Provider Department 01/01/25 3:00 PM [facility] your visit today, we recorded the following information about you: NINOSKA ODONNELL 01/01/2025 3:17 PM Signed Patient presents for Flu and Twinrix vaccines. Denies any problems at this time. Tolerated injections well. Ninoska Odonnell LPN Allergies As of Date: 01/01/2025 (No Known Allergies) Date Reviewed: 06/22/2024 Reviewed by: Fany Cannon MA - Fully Assessed Reason for Visit: Immunizations [194] Cmt: Flu vaccination Imm/Inj [58] Primary Visit Diagnosis:Need for influenza vaccination [Z23] Other Visit Diagnosis:Encounter for immunization [Z23] Order(s):INFLUENZA VACCINE, PRSV FREE, AGE 6MO-64YR, TRIVALENT (AFLURIA, FLUARIX, FLULAVAL, FLUVIRIN, FLUZONE) [[id number]] Order #: [id number] Prescriptions as of 01/01/2025 - gemfibrozil (LOPID) 600 mg tablet Take 1 tablet by mouth two times a day. - flash glucose sensor (FREESTYLE BRENDA 2 SENSOR) kit Apply new sensor every fourteen (14) days to upper arm. - Vitamin E, dl, acetate, (VITAMIN E) 400 unit capsule Take 2 capsules by mouth once daily. - Benazepril-hydroCHLO ROthiazide 10-12.5 mg per tablet Take 1 tablet by mouth once daily as needed. For SBP >130 - loratadine (CLARITIN) 10 mg tablet Take 1 tablet by mouth once daily. - Potassium Citrate 15 mEq TbER Take 1 tablet by mouth two times a day. - fluticasone (FLONASE) 50 mcg/actuation nasal spray Use 2 Sprays in each nostril once daily. - flash glucose scanning reader (FREESTYLE BRENDA 2 READER) 1 Each once daily. - insulin lispro (HUMALOG KWIKPEN INSULIN) 100 unit/mL Inject 4 Units subcutaneously three times a day before meals. Will titrate up as needed up to 40 units per day - blood sugar diagnostic (FREESTYLE LITE STRIPS) test strip Test blood sugar(s) up to 4 times daily. Dx: Type 2 DM - Uncontrolled E11.65 Insulin: Yes Dispense if reader for Freestyle Brenda 2 can use these test strips - insulin needles, DISPOSABLE, (PEN NEEDLE) 31 gauge x 5/16" Use one needle per dose. 4 per day. - CPAP Initiate Auto PAP @ 5-20 cm of water with humidification. Mask (per patient preference) optional chin strap (if indicated) , filters, tubing, humidifier and lifetime supplies. - CPAP Needs new APAP @ cm of water with humidification. Mask (per patient preference) optional chin strap (if indicated) , filters, tubing, humidifier and lifetime supplies. Diagnosis: SOLO G47.33 - Methylcellulose, Laxative, 500 mg tab Take by mouth. - Fish Oil-DHA-EPA 1,200-144-216 mg cap Take 2 capsules by mouth once daily. - MULTIVITAMIN TAB Take one(1) tablet daily. Problem List As Of Date 01/01/2025 Noted Resolved Essential hypertension [I10] Mixed hyperlipidemia [E78.2] OBESITY NOS [E66.9] 03/23/2015 Unspecified sleep apnea [G47.30] 09/11/2016 Allergic rhinitis [J30.9] 06/04/2008 ABNORMAL LIVER FUNCTION STUDY [R94.5] 06/04/2008 Diabetes mellitus type 2, controlled, without c*01/05/2011 08/31/2015 IFG (impaired fasting glucose) [R73.01] 08/31/2015 08/16/2023 Type 2 diabetes mellitus without complication, *03/26/2017 NICOLE (nonalcoholic steatohepatitis) [K75.81] 05/14/2018 Elevated ferritin [R79.89] 05/14/2018 Elevated antibody levels--Anti smooth muscle an*05/21/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 Patient's spouse asked if patient should get his flu/COVID vaccines with his 3rd Hep vaccine later this week. Please advise. Giuliana Sanders LPN 12/28/2024 2:20 PM Signed Patients notified that we do not have COVID at this time but could get flu with Hep vaccine. Allergies As of Date: 12/28/2024 (No Known Allergies) Date Reviewed: 06/22/2024 Reviewed by: Fany Cannon MA - Fully Assessed Reason for Visit: Patient Question [6155] Prescriptions as of 12/28/2024 - gemfibrozil (LOPID) 600 mg tablet Take 1 tablet by mouth two times a day. - flash glucose sensor (FREESTYLE BRENDA 2 SENSOR) kit Apply new sensor every fourteen (14) days to upper arm. - Vitamin E, dl, acetate, (VITAMIN E) 400 unit capsule Take 2 capsules by mouth once daily. - Benazepril-hydroCHLO ROthiazide 10-12.5 mg per tablet Take 1 tablet by mouth once daily as needed. For SBP >130 - loratadine (CLARITIN) 10 mg tablet Take 1 tablet by mouth once daily. - Potassium Citrate 15 mEq TbER Take 1 tablet by mouth two times a day. - fluticasone (FLONASE) 50 mcg/actuation nasal spray Use 2 Sprays in each nostril once daily. - flash glucose scanning reader (FREESTYLE BRENDA 2 READER) 1 Each once daily. - insulin lispro (HUMALOG KWIKPEN INSULIN) 100 unit/mL Inject 4 Units subcutaneously three times a day before meals. Will titrate up as needed up to 40 units per day - blood sugar diagnostic (FREESTYLE LITE STRIPS) test strip Test blood sugar(s) up to 4 times daily. Dx: Type 2 DM - Uncontrolled E11.65 Insulin: Yes Dispense if reader for Freestyle Brenda 2 can use these test strips - insulin needles, DISPOSABLE, (PEN NEEDLE) 31 gauge x 5/16" Use one needle per dose. 4 per day. - CPAP Initiate Auto PAP @ 5-20 cm of water with humidification. Mask (per patient preference) optional chin strap (if indicated) , filters, tubing, humidifier and lifetime supplies. - CPAP Needs new APAP @ cm of water with humidification. Mask (per patient preference) optional chin strap (if indicated) , filters, tubing, humidifier and lifetime supplies. Diagnosis: SOLO G47.33 - Methylcellulose, Laxative, 500 mg tab Take by mouth. - Fish Oil-DHA-EPA 1,200-144-216 mg cap Take 2 capsules by mouth once daily. - MULTIVITAMIN TAB Take one(1) tablet daily. Problem List As Of Date 12/28/2024 Noted Resolved Essential hypertension [I10] Mixed hyperlipidemia [E78.2] OBESITY NOS [E66.9] 03/23/2015 Unspecified sleep apnea [G47.30] 09/11/2016 Allergic rhinitis [J30.9] 06/04/2008 ABNORMAL LIVER FUNCTION STUDY [R94.5] 06/04/2008 Diabetes mellitus type 2, controlled, without c*01/05/2011 08/31/2015 IFG (impaired fasting glucose) [R73.01] 08/31/2015 08/16/2023 Type 2 diabetes mellitus without complication, *03/26/2017 NICOLE (nonalcoholic steatohepatitis) [K75.81] 05/14/2018 Elevated ferritin [R79.89] 05/14/2018 Elevated antibody levels--Anti smooth muscle an*05/21/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 Encounter Status:Closed by GIULIANA HARDIN on 12/28/24 Normal [facility] CBC panel Auto (Bld)on 12-23 Erythrocyte distribution width (RBC) [Ratio] 12.0 % Normal 11.5-15.0 [facility] Comment on above: Order Comment: Speci men Type: BLOOD SPECIMENOrdering Facility: [facility] Address: [address] [place] [address] Performed By: #### 5 8410-2 ####[facility] [id number] [address] [place] Hematocrit (Bld) [Volume fraction] 44.2 % Normal 39.0-51.0 [facility] Comment on above: Order Comment: Speci men Type: BLOOD SPECIMENOrdering Facility: [facility] Address: [address] [place] [address] Performed By: #### 5 8410-2 ####[facility] [id number] [place] [address] [place] Hemoglobin (Bld) [Mass/Vol] 15.9 g/dL Normal 13.0-17.0 [facility] Comment on above: Order Comment: Speci men Type: BLOOD SPECIMENOrdering Facility: [facility] Address: [address] [place] [address] Performed By: #### 5 8410-2 ####[facility] [id number] [place] [address] [place] MCH (RBC) [Entitic mass] 31.7 pg Normal 26.0-34.0 [facility] Comment on above: Order Comment: Speci men Type: BLOOD SPECIMENOrdering Facility: [facility] Address: [address] [place] [address] Performed By: #### 5 8410-2 ####[facility] CHUCKElliNCLIA [id number] [place] [address] [place] MCHC (RBC) [Mass/Vol] 36.0 g/dL Normal 30.5-36.0 [facility] Comment on above: Order Comment: Speci men Type: BLOOD SPECIMENOrdering Facility: [facility] Address: [address] [place] [address] Performed By: #### 5 8410-2 ####[facility]ITALNCLIA [id number] [place] [address] [place] MCV (RBC) [Entitic vol] 88.0 fL Normal 80.0-100.0 [facility] Comment on above: Order Comment: Speci men Type: BLOOD SPECIMENOrdering Facility: [facility] Address: [address] [place] [address] Performed By: #### 5 8410-2 ####[facility]ITALNCLIA [id number] [place] [address] [place] Nucleated RBC (Bld) [#/Vol] 10*3/uL Normal <0.01 [facility] Comment on above: Order Comment: Speci men Type: BLOOD SPECIMENOrdering Facility: [facility] Address: [address] [place] [address] Performed By: #### 5 8410-2 ####[facility]ITALNCLIA [id number] [place] [address] [place] Platelet mean volume (Bld) [Entitic vol] 11.4 fL Normal 9.0-12.7 [facility] Comment on above: Order Comment: Speci men Type: BLOOD SPECIMENOrdering Facility: [facility] Address: [address] [place] [address] Performed By: #### 5 8410-2 ####[facility] EMILIANANCLIA [id number] [place] [address] [place] Platelets (Bld) [#/Vol] 198 10*3/uL Normal 150-400 [facility] Comment on above: Order Comment: Speci men Type: BLOOD SPECIMENOrdering Facility: [facility] Address: [address] [place], [place] [id number] Performed By: #### 5 8410-2 ####[facility] CHUCKFORKSNCLIA [id number] [place] [address] [place] [facility] RBC (Bld) [#/Vol] 5.02 10*6/uL Normal 4.20-6.00 [facility] Comment on above: Order Comment: Speci men Type: BLOOD SPECIMENOrdering Facility: [facility] Address: [address] [place] [address] Performed By: #### 5 8410-2 ####[facility]ITALNCLIA [id number] [place] [address] [place] WBC (Bld) [#/Vol] 5.54 10*3/uL Normal 3.70-11.00 [facility] Comment on above: Order Comment: Speci men Type: BLOOD SPECIMENOrdering Facility: [facility] Address: [address] [place], [place] [id number] Performed By: #### 5 8410-2 ####[facility]ITALNCLIA [id number] [place] [address] [place] [facility] [place] Comprehensive metabolic 2000 panelon 12-23-2024 Albumin [Mass/Vol] 4.7 g/dL Normal 3.9-4.9 [facility] Comment on above: Order Comment: Speci men Type: BLOOD SPECIMENOrdering Facility: [facility] Address: [address] [place] [address] Performed By: #### 2 4323-8 ####[facility] RAJESH MILLTOWNCLIA [id number] [place] [address] [place] ALP [Catalytic activity/Vol] 59 U/L Normal 38-113 [facility] Comment on above: Order Comment: Speci men Type: BLOOD SPECIMENOrdering Facility: [facility] Address: [address] [place] [address] Performed By: #### 2 4323-8 ####[facility] MILLTOWNCLIA [id number] [place] [address] [place] ALT [Catalytic activity/Vol] 15 U/L Normal 10-54 [facility] Comment on above: Order Comment: Speci men Type: BLOOD SPECIMENOrdering Facility: [facility] Address: [address] [place] [address] Performed By: #### 2 4323-8 ####[facility]ITALNCLIA [id number] [place] [address] [place] Anion gap [Moles/Vol] 9 mmol/L Normal 8-15 [facility] Comment on above: Order Comment: Speci men Type: BLOOD SPECIMENOrdering Facility: [facility] Address: [address] [place] [address] Performed By: #### 2 4323-8 ####[facility]ITALNCLIA [id number] [place] [address] [place] AST [Catalytic activity/Vol] 20 U/L Normal 14-40 [facility] Comment on above: Order Comment: Speci men Type: BLOOD SPECIMENOrdering Facility: [facility] Address: [address] [place] [address] Performed By: #### 2 4323-8 ####[facility] HOSPITALWNCLIA [id number] [place] [address] [place] Bilirubin [Mass/Vol] 1.1 mg/dL Normal 0.2-1.3 [facility] Comment on above: Order Comment: Speci men Type: BLOOD SPECIMENOrdering Facility: [facility] Address: [address] [place], [place] [id number] Performed By: #### 2 4323-8 ####[facility]OSPITALNCLIA [id number] [place] [address] [place] Calcium [Mass/Vol] 9.7 mg/dL Normal 8.5-10.2 [facility] Comment on above: Order Comment: Speci men Type: BLOOD SPECIMENOrdering Facility: [facility] Address: [address] [place] [address] Performed By: #### 2 4323-8 ####[facility] HOSPITALNCA [id number] [place] [address] [place] Chloride [Moles/Vol] 104 mmol/L Normal 98-107 [facility] Comment on above: Order Comment: Speci men Type: BLOOD SPECIMENOrdering Facility: [facility] Address: [address] [place] [address] Performed By: #### 2 4323-8 ####[facility] [id number] [place] [address] [place] CO2 [Moles/Vol] 25 mmol/L Normal 22-30 [facility] Comment on above: Order Comment: Speci men Type: BLOOD SPECIMENOrdering Facility: [facility] Address: [address] [place], [place] [id number] Performed By: #### 2 4323-8 ####[facility] [id number] [place] [address] [place] Creatinine [Mass/Vol] 0.96 mg/dL Normal 0.73-1.22 [facility] Comment on above: Order Comment: Speci men Type: BLOOD SPECIMENOrdering Facility: [facility] Address: [address] [place], [place] [id number] Performed By: #### 2 4323-8 ####[facility]ITALTOWNCLIA [id number] [place] [address] [place] eGFRcr SerPlBld CKD-EPI 2020 92 mL/min/1.73m??? Normal >=60 [facility] Comment on above: Order Comment: Jairon leigh Type: BLOOD SPECIMENOrdering Facility: [facility] Address: [address] [place] [address] Result Comment: Lien mated Glomerular Filtration Rate (eGFR) is calculated using the 2020 CKD-EPI creatinine equation. This equation utilizes serum creatinine, sex, and age as parameters. The creatinine assay has traceable calibration to isotope dilution-mass spectrometry. Refer to KDIGO guidelines for clinical interpretation. In patients with unstable renal function, e.g. those with acute kidney injury, the eGFR may not accurately reflect actual GFR. Performed By: #### 2 4323-8 ####[facility]ITALNCLIA [id number] [place] [address] [place] Glucose [Mass/Vol] 149 mg/dL High 74-99 [facility] Comment on above: Order Comment: Jairon leigh Type: BLOOD SPECIMENOrdering Facility: [facility] Address: [address] [place] [address] Result Comment: The [place] [employer] (ADA) provides guidance for cutoff values for fasting glucose and random glucose. The ADA defines fasting as no caloric intake for at least 8 hours. Fasting plasma glucose results between 100 to 125 mg/dL indicate increased risk for diabetes (prediabetes). Fasting plasma glucose results greater than or equal to 126 mg/dL meet the criteria for diagnosis of diabetes. In the absence of unequivocal hyperglycemia, results should be confirmed by repeat testing. In a patient with classic symptoms of hyperglycemia or hyperglycemic crisis, random plasma glucose results greater than or equal to 200 mg/dL meet the criteria for diagnosis of diabetes. Reference: Standards of Medical Care in Diabetes 2016, [place] [employer]. Diabetes Care. 2016.39(Suppl 1). Performed By: #### 2 4323-8 ####[facility] [id number] [place] [address] [place] Potassium [Moles/Vol] 4.6 mmol/L Normal 3.7-5.1 [facility] Comment on above: Order Comment: Speci men Type: BLOOD SPECIMENOrdering Facility: [facility] Address: [address] [place] [address] Performed By: #### 2 4323-8 ####[facility] MILLWNCLIA [id number] [place] [address] [place] Protein [Mass/Vol] 6.8 g/dL Normal 6.3-8.0 [facility] Comment on above: Order Comment: Speci men Type: BLOOD SPECIMENOrdering Facility: [facility] Address: [address] [place] [address] Performed By: #### 2 4323-8 ####[facility] - DUBLINLIA [id number] [place] [address] [place] Sodium [Moles/Vol] 138 mmol/L Normal 136-144 [facility] Comment on above: Order Comment: Speci men Type: BLOOD SPECIMENOrdering Facility: [facility] Address: [address] [place] [address] Performed By: #### 2 4323-8 ####[facility]ITALNCLIA [id number] [place] [address] [place] Urea nitrogen [Mass/Vol] 17 mg/dL Normal 9-24 [facility] Comment on above: Order Comment: Speci men Type: BLOOD SPECIMENOrdering Facility: [facility] Address: [address] [place], [place] [address] Performed By: #### 2 4323-8 ####[facility]ITAL[facility] [id number] [place] [address] [place] Ferritin SerPl-mCncon 09-03- 2025 Ferritin [Mass/Vol] 364.0 ng/mL Normal 30.3-565.7 [facility] Comment on above: Order Comment: Jairon leigh Type: BLOOD SPECIMENOrdering Facility: [facility] Address: [address] [place] [address] Performed By: #### 5 0190-8, 2276-4 ####[facility] LABCLIA [id number] [address]#### [address]06[address]-7 ####[facility] LABCLIA [id number] [address] [id number] [place], [place] [id number] [place] [address] OF [facility] HbA1c (Bld)on 12-23-2024 Average glucose Estimated from glycated hemoglobin (Bld) [Mass/Vol] 128 mg/dL Normal [facility] Comment on above: Order Comment: Jairon [facility] Type: BLOOD SPECIMENOrdering Facility: [facility] Address: [address] [place] [address] Result Comment: eAG: (Estimated average glucose) is a calculated value from HgbA1c and is architectural representative of the average blood glucose level in the last 2-3 month period. Performed By: #### 5 5454-3 ####[facility] LABIA [id number] [address] HbA1c (Bld) [Mass fraction] 6.1 % High 4.3-5.6 [facility] Comment on above: Order Comment: Jairon [facility] Type: BLOOD SPECIMENOrdering Facility: [facility] Address: [address] [place] [address] Result Comment: Amer ican Diabetes Association guidelines indicate that patients with HgbA1c in the range 5.7-6.4% are at increased risk for development of diabetes, and intervention by lifestyle modification may be beneficial. HgbA1c greater or equal to 6.5% is considered diagnostic of diabetes. Performed By: #### 5 5454-3 ####[facility] LABCLIA [id number] [address] [address] [place] Iron and Iron binding capaci ty panelon 12-23-2024 Iron [Mass/Vol] 173 ug/dL Normal 41-186 [facility] Comment on above: Order Comment: Speci men Type: BLOOD SPECIMENOrdering Facility: [facility] Address: [address] [place] [address] Performed By: #### 5 0190-8, 2275- ####[facility] LABCLIA [id number] [place] [id number] [place]#### 03973-1 ####[facility] LABCLIA [id number] [place] [id number] [place] [facility] [id number] [place] [address] [place] Iron binding capacity [Mass/Vol] 411 ug/dL High 232-386 [facility] Comment on above: Order Comment: Speci men Type: BLOOD SPECIMENOrdering Facility: [facility] Address: [address] [place] [address] Performed By: #### 5 0190-8, 2275-07 ####[facility] LABCLIA [id number] [place] [id number] [place]#### 56900-8 ####[facility] LABCLIA [id number] [address], [facility] [place] STATES OF [facility] [id number] [place] [address] [place] Iron/TIBC [Molar ratio] 42.1 % Normal 15.0-57.0 [facility] Comment on above: Order Comment: Speci men Type: BLOOD SPECIMENOrdering Facility: [facility] Address: [address] [place] [address] Performed By: #### 5 0190-8, 2275-07 ####[facility] LABCLIA [id number] [facility] [address] [place] [address] [place]#### 54945-8 ####[facility] LABCLIA [id number] [facility] [address] [place] [address] [place] [facility] [id number] [place] [address] [place] Lipid 1996 panelon 5 Cholesterol [Mass/Vol] 146 mg/dL Normal <200 [facility] Comment on above: Order Comment: Speci men Type: BLOOD SPECIMENOrdering Facility: [facility] Address: [address] [place] [address] Result Comment: <200 mg/dL, Desirable 200-239 mg/dL, Borderline high >239 mg/dL, High Performed By: #### 5 0190-8, 2275-07 ####[facility] LABCLIA [id number] [facility] [address], [facility] [place]#### 66348-7 ####[facility] LABCLIA [id number] [facility] [address], [address] STATES OF [facility] [id number] [place] [address] [place] Cholesterol in HDL [Mass/Vol] 30 mg/dL Low >39 [facility] Comment on above: Order Comment: Speci men Type: BLOOD SPECIMENOrdering Facility: [facility] Address: [address] [place] [address] Result Comment: 40-5 9 mg/dL, Acceptable >59 mg/dL, High: Negative risk factor for coronary heart disease <40 mg/dL, Low: Positive risk factor for coronary heart disease Performed By: #### 5 0190-8, 2275-07 ####[facility] LABCLIA [id number] [place] [id number] [place]#### 484[address]-5 ####[facility] LABIA [id number] [address] [id number] [place] [address] [place] Cholesterol in LDL [Mass/Vol] 88 mg/dL Normal <100 [facility] Comment on above: Order Comment: Speci men Type: BLOOD SPECIMENOrdering Facility: [facility] Address: [address] [place] [address] Result Comment: <100 mg/dL, Optimal 100-129 mg/dL, Near optimal/above optimal 130-159 mg/dL, Borderline high 160-189 mg/dL, High >189 mg/dL, Very high Secondary prevention optimal LDL Cholesterol levels are recommended to be <70 mg/dL LDL cholesterol is calculated using the Ward-NIH equation. Performed By: #### 5 0190-8, 2276-4 ####[facility] LABIA [id number] [address] OF [place]#### [address]2862-1 ####[facility] LABIA [id number] [place] [id number] [facility] [id number] [place] [address] [place] Cholesterol in LDL/Cholesterol in HDL [Mass ratio] 2.93 {ratio} High <2.54 [facility] Comment on above: Order Comment: Speci men Type: BLOOD SPECIMENOrdering Facility: [facility] Address: [address] [place] [address] Result Comment: Wiley hurst: 1. National Cholesterol Education Program ATP III Guideline At-A-Glance Quick Desk Reference: National Heart, Lung, and Blood Ryan. National Institutes of Health. 2001: NIH Publication No. 01-3305. 2. An International Atherosclerosis Society position paper: global recommendations for the management of dyslipidemia: executive summary, Atherosclerosis. 2014: 232(2):410-413. Performed By: #### 5 0190-8, 2275- ####[facility] LABCLIA [id number] [place] [id number] [place]#### 83700-8 ####[facility] LABCLIA [id number] [facility] [address] [place] [address] [facility] [id number] [place] [address] [place] Cholesterol in VLDL [Mass/Vol] 25 mg/dL Normal <30 [facility] Comment on above: Order Comment: Speci men Type: BLOOD SPECIMENOrdering Facility: [facility] Address: [address] [place] [address] Performed By: #### 5 0190-8, 2275-07 ####[facility] LABCLIA [id number] [address] [place]#### [address]-2 ####[facility] LABCLIA [id number] [facility] [address], [facility]95 [facility] [id number] [place] [address] [place] Cholesterol non HDL [Mass/Vol] 116 mg/dL Normal <130 [facility] Comment on above: Order Comment: Speci men Type: BLOOD SPECIMENOrdering Facility: [facility] Address: [address] [place] [address] Result Comment: <130 mg/dL, Optimal 130-159 mg/dL, Near optimal/above optimal 160-189 mg/dL, Borderline high 190-219 mg/dL, High >219 mg/dL, Very high Secondary prevention optimal non HDL Cholesterol levels are recommended to be <100 mg/dL Performed By: #### 5 0190-8, 2275- ####[facility] LABCLIA [id number] [facility] [id number] [address] [place]#### 39697-9 ####[facility] LABCLIA [id number] [facility] [id number], [place] [address] [place] AMERICASELECT MEDICAL [facility] DUBLINLIA [id number] [place] [address] [place] Cholesterol.total/Choles terol in HDL [Mass ratio] 4.87 {ratio} Normal <5.10 [facility] Comment on above: Order Comment: Speci men Type: BLOOD SPECIMENOrdering Facility: [facility] Address: [address] [place], [place] [address] Performed By: #### 5 0190-8, 2275-07 ####[facility] LABCLIA [id number] [facility] [address] [place] [address] [place]#### 46436-8 ####[facility] LABCLIA [id number] [facility] [address] [place] [address] [place] [facility] [id number] [place] [address] [place] FASTING TIME 12 hrs Normal [facility] Comment on above: Order Comment: Speci men Type: BLOOD SPECIMENOrdering Facility: [facility] Address: [address] [place], [place] [address] Performed By: #### 5 0190-8, 2275-07 ####[facility] LABCLIA [id number] [facility] [place] [address] [place]#### 47138-9 ####[facility] LABCLIA [id number] [facility] [place], [place] [address] [place] [facility] [id number] [place] [address] [place] Triglyceride [Mass/Vol] 159 mg/dL High <150 [facility] Comment on above: Order Comment: Speci men Type: BLOOD SPECIMENOrdering Facility: [facility] Address: [address] [place] [address] Result Comment: <150 mg/dL, Normal 150-199 mg/dL, Borderline high 200-499 mg/dL, High >499 mg/dL, Very high Performed By: #### 5 0190-8, 2276-4 ####[facility] LABCLIA [id number] [address]#### 36585-7 ####[facility] LABIA [id number] [address] [id number] [address] Mode 10-12-2024 [facility] Telephone (INTMWS) LONNIE GAVIRIA ([id number]) 1965 M Date Time Provider Department 10/12/24 MOLLY KEARNS INTWS During your visit today, we recorded the following information about you: Jewell Garnica LPN 10/12/2024 8:20 AM Signed Electronic PA reviewed and completed for [employer] 2 sensors. This was approved. Prior authorization approved Payer: Sanju Note from payer: SANTO Case: [id number], Status: Partially Approved, Coverage Starts on: 10/09/2024 12:00:00 AM, Coverage Ends on: 10/09/2025 12:00:00 AM. Approval Details Authorization number: [id number] Authorized from October 09, 2024 to October 09, 2025 Electronic appeal: Not supported View History Notes Time User Attachment Attachment received from payer. 10/09/2024 5:32 PM Cchs, Rx Priorauth In Document Medication Being Authorized flash glucose sensor (FREESTYLE BRENDA 2 SENSOR) kit Apply new sensor every fourteen (14) days to upper arm. Dispense: 6 each Refills: 4 Start: 10/05/2024 Class: Normal Diagnoses: Type 2 diabetes mellitus without complication, with long-term current use of insulin (HCC) This order has been released to its destination. To be filled at: e- [facility]/pharmacy #[id number] [place] [address] - [address] [facility] [phone] 4605 Pharmacy notified. Sofi Rapp RN 10/15/2024 3:14 PM Signed Pt's called in asking about sensors. She states they received a letter from Pt's insurance stating the sensors were not covered. Since Pt didn't have that we were allowed to give his medical information, I called the Pt. Pt gave permission to give his medical information. I let him know information from PA below. Authorization number: [id number] Authorized from October 09, 2024 to October 09, 2025 Sofi Rapp RN Allergies As of Date: 10/12/2024 (No Known Allergies) Date Reviewed: 06/22/2024 Reviewed by: Fany Cannon MA - Fully Assessed Reason for Visit: Insurance Authorization [1693] Prescriptions as of 10/15/2024 - flash glucose sensor (FREESTYLE BRENDA 2 SENSOR) kit Apply new sensor every fourteen (14) days to upper arm. - Vitamin E, dl, acetate, (VITAMIN E) 400 unit capsule Take 2 capsules by mouth once daily. - Benazepril-hydroCHLO ROthiazide 10-12.5 mg per tablet Take 1 tablet by mouth once daily as needed. For SBP >130 - loratadine (CLARITIN) 10 mg tablet Take 1 tablet by mouth once daily. - Potassium Citrate 15 mEq TbER Take 1 tablet by mouth two times a day. - fluticasone (FLONASE) 50 mcg/actuation nasal spray Use 2 Sprays in each nostril once daily. - gemfibrozil (LOPID) 600 mg tablet Take 1 tablet by mouth two times a day. - flash glucose scanning reader (FREESTYLE BRENDA 2 READER) 1 Each once daily. - insulin lispro (HUMALOG KWIKPEN INSULIN) 100 unit/mL Inject 4 Units subcutaneously three times a day before meals. Will titrate up as needed up to 40 units per day - blood sugar diagnostic (FREESTYLE LITE STRIPS) test strip Test blood sugar(s) up to 4 times daily. Dx: Type 2 DM - Uncontrolled E11.65 Insulin: Yes Dispense if reader for Freestyle Brenda 2 can use these test strips - insulin needles, DISPOSABLE, (PEN NEEDLE) 31 gauge x 5/16" Use one needle per dose. 4 per day. - CPAP Initiate Auto PAP @ 5-20 cm of water with humidification. Mask (per patient preference) optional chin strap (if indicated) , filters, tubing, humidifier and lifetime supplies. - CPAP Needs new APAP @ cm of water with humidification. Mask (per patient preference) optional chin strap (if indicated) , filters, tubing, humidifier and lifetime supplies. Diagnosis: SOLO G47.33 - Methylcellulose, Laxative, 500 mg tab Take by mouth. - Fish Oil-DHA-EPA 1,200-144-216 mg cap Take 2 capsules by mouth once daily. - MULTIVITAMIN TAB Take one(1) tablet daily. Problem List As Of Date 10/12/2024 Noted Resolved Essential hypertension [I10] Mixed hyperlipidemia [E78.2] OBESITY NOS [E66.9] 03/23/2015 Unspecified sleep apnea [G47.30] 09/11/2016 Allergic rhinitis [J30.9] 06/04/2008 ABNORMAL LIVER FUNCTION STUDY [R94.5] 06/04/2008 Diabetes mellitus type 2, controlled, without c*01/05/2011 08/31/2015 IFG (impaired fasting glucose) [R73.01] 08/31/2015 08/16/2023 Type 2 diabetes mellitus without complication, *03/26/2017 NICOLE (nonalcoholic steatohepatitis) [K75.81] 05/14/2018 Elevated ferritin [R79.89] 05/14/2018 Elevated antibody levels--Anti smooth muscle an*05/21/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 Bel Barnes 10/09/2024 2:43 PM Signed Patient is checking on status. Please send Prior Authorization to [facility] if approved and notify patient. [phone] Craig Clark RN 10/10/2024 8:27 AM Signed Per med PA, sensors have been approved. Authorization number: [id number] Authorized from October 09, 2024 to October 09, 2025 Information received electronically from payer Called pt and notified of approval. Sent the above information to pt's [employer] for reference if he speaks with [facility] in [place] and they say they are still waiting on the PA. Allergies As of Date: 10/06/2024 (No Known Allergies) Date Reviewed: 06/22/2024 Reviewed by: Fany Cannon MA - Fully Assessed Reason for Visit: Insurance Authorization [1693] Cmt: For Freestyle Brenda sensors Prescriptions as of 10/10/2024 - flash glucose sensor (FREESTYLE BRENDA 2 SENSOR) kit Apply new sensor every fourteen (14) days to upper arm. - Vitamin E, dl, acetate, (VITAMIN E) 400 unit capsule Take 2 capsules by mouth once daily. - Benazepril-hydroCHLO ROthiazide 10-12.5 mg per tablet Take 1 tablet by mouth once daily as needed. For SBP >130 - loratadine (CLARITIN) 10 mg tablet Take 1 tablet by mouth once daily. - Potassium Citrate 15 mEq TbER Take 1 tablet by mouth two times a day. - fluticasone (FLONASE) 50 mcg/actuation nasal spray Use 2 Sprays in each nostril once daily. - gemfibrozil (LOPID) 600 mg tablet Take 1 tablet by mouth two times a day. - flash glucose scanning reader (FREESTYLE BRENDA 2 READER) 1 Each once daily. - insulin lispro (HUMALOG KWIKPEN INSULIN) 100 unit/mL Inject 4 Units subcutaneously three times a day before meals. Will titrate up as needed up to 40 units per day - blood sugar diagnostic (FREESTYLE LITE STRIPS) test strip Test blood sugar(s) up to 4 times daily. Dx: Type 2 DM - Uncontrolled E11.65 Insulin: Yes Dispense if reader for Freestyle Brenda 2 can use these test strips - insulin needles, DISPOSABLE, (PEN NEEDLE) 31 gauge x 5/16" Use one needle per dose. 4 per day. - CPAP Initiate Auto PAP @ 5-20 cm of water with humidification. Mask (per patient preference) optional chin strap (if indicated) , filters, tubing, humidifier and lifetime supplies. - CPAP Needs new APAP @ cm of water with humidification. Mask (per patient preference) optional chin strap (if indicated) , filters, tubing, humidifier and lifetime supplies. Diagnosis: SOLO G47.33 - Methylcellulose, Laxative, 500 mg tab Take by mouth. - Fish Oil-DHA-EPA 1,200-144-216 mg cap Take 2 capsules by mouth once daily. - MULTIVITAMIN TAB Take one(1) tablet daily. Problem List As Of Date 10/06/2024 Noted Resolved Essential hypertension [I10] Mixed hyperlipidemia [E78.2] OBESITY NOS [E66.9] 03/23/2015 Unspecified sleep apnea [G47.30] 09/11/2016 Allergic rhinitis [J30.9] 06/04/2008 ABNORMAL LIVER FUNCTION STUDY [R94.5] 06/04/2008 Diabetes mellitus type 2, controlled, without c*01/05/2011 08/31/2015 IFG (impaired fasting glucose) [R73.01] 08/31/2015 08/16/2023 Type 2 diabetes mellitus without complication, *03/26/2017 NICOLE (nonalcoholic steatohepatitis) [K75.81] 05/14/2018 Elevated ferritin [R79.89] 05/14/2018 Elevated antibody levels--Anti smooth muscle an*05/21/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 Denies any problems at this time. Tolerated injection well. Ninoska Odonnell LPN Allergies As of Date: 07/24/2024 (No Known Allergies) Date Reviewed: 06/22/2024 Reviewed by: Fany Cannon MA - Fully Assessed Reason for Visit: Imm/Inj [58] Primary Visit Diagnosis:Encounter for immunization [Z23] Prescriptions as of 07/24/2024 - Vitamin E, dl, acetate, (VITAMIN E) 400 unit capsule Take 2 capsules by mouth once daily. - Benazepril-hydroCHLO ROthiazide 10-12.5 mg per tablet Take 1 tablet by mouth once daily as needed. For SBP >130 - flash glucose sensor (FREESTYLE BRENDA 2 SENSOR) kit Apply new sensor every fourteen (14) days to upper arm. - loratadine (CLARITIN) 10 mg tablet Take 1 tablet by mouth once daily. - Potassium Citrate 15 mEq TbER Take 1 tablet by mouth two times a day. - fluticasone (FLONASE) 50 mcg/actuation nasal spray Use 2 Sprays in each nostril once daily. - gemfibrozil (LOPID) 600 mg tablet Take 1 tablet by mouth two times a day. - flash glucose scanning reader (FREESTYLE BRENDA 2 READER) 1 Each once daily. - insulin lispro (HUMALOG KWIKPEN INSULIN) 100 unit/mL Inject 4 Units subcutaneously three times a day before meals. Will titrate up as needed up to 40 units per day - blood sugar diagnostic (FREESTYLE LITE STRIPS) test strip Test blood sugar(s) up to 4 times daily. Dx: Type 2 DM - Uncontrolled E11.65 Insulin: Yes Dispense if reader for Freestyle Brenda 2 can use these test strips - insulin needles, DISPOSABLE, (PEN NEEDLE) 31 gauge x 5/16" Use one needle per dose. 4 per day. - CPAP Initiate Auto PAP @ 5-20 cm of water with humidification. Mask (per patient preference) optional chin strap (if indicated) , filters, tubing, humidifier and lifetime supplies. - CPAP Needs new APAP @ cm of water with humidification. Mask (per patient preference) optional chin strap (if indicated) , filters, tubing, humidifier and lifetime supplies. Diagnosis: SOLO G47.33 - Methylcellulose, Laxative, 500 mg tab Take by mouth. - Fish Oil-DHA-EPA 1,200-144-216 mg cap Take 2 capsules by mouth once daily. - MULTIVITAMIN TAB Take one(1) tablet daily. Problem List As Of Date 07/24/2024 Noted Resolved Essential hypertension [I10] Mixed hyperlipidemia [E78.2] OBESITY NOS [E66.9] 03/23/2015 Unspecified sleep apnea [G47.30] 09/11/2016 Allergic rhinitis [J30.9] 06/04/2008 ABNORMAL LIVER FUNCTION STUDY [R94.5] 06/04/2008 Diabetes mellitus type 2, controlled, without c*01/05/2011 08/31/2015 IFG (impaired fasting glucose) [R73.01] 08/31/2015 08/16/2023 Type 2 diabetes mellitus without complication, *03/26/2017 NICOLE (nonalcoholic steatohepatitis) [K75.81] 05/14/2018 Elevated ferritin [R79.89] 05/14/2018 Elevated antibody levels--Anti smooth muscle an*05/21/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 Encounter Status:Closed by NINOSKA ODONNELL on 07/24/24 [facility] CNPRiya 07-02-2024 CNPN Telephone (GASTA5) Mer LONNIE DENTON ([id number]) 1965 M Date Time Provider Department 07/02/24 FRANCISCO SANCHEZ GASTA5 During your visit today, we recorded the following information about you: Matthieu Gamboa 07/02/2024 9:27 AM Signed Pt called in Fibroscan order needed Matthieu Gamboa Assistive Technology Trainer Jaki Ferrell RN 07/02/2024 9:54 AM Signed Usually, normal FS results means repeat in 2 years 09/26/23 results: Please refer to get images report for individual readings Number of readings: 10 IQR %: 13 E (kpa): 10.4 CAP: 323 Impression The reading was adequate. FS = 10.4 kPA. The CAP score is 323 and corresponds to steatosis grade of S3. Order pended in case FS should be done again in September Jaki Lebron RN July 02, 2024 9:53 AM Francisco Sanchez MD 07/02/2024 11:58 AM Signed Please let him know FS every two years (September 2025) I would be please to see him in the office (or V V) if he would like to review things in detail. Thanks MD Vi Leger Osas, RN 07/02/2024 12:03 PM Signed Patient updated Jaki Lebron RN Allergies As of Date: 07/02/2024 (No Known Allergies) Date Reviewed: 06/22/2024 Reviewed by: Fany Cannon MA - Fully Assessed Reason for Visit: Orders [681] Cmt: fibroscan Primary Visit Diagnosis:Liver disease [K76.9] Prescriptions as of 07/02/2024 - Vitamin E, dl, acetate, (VITAMIN E) 400 unit capsule Take 2 capsules by mouth once daily. - Benazepril-hydroCHLO ROthiazide 10-12.5 mg per tablet Take 1 tablet by mouth once daily as needed. For SBP >130 - flash glucose sensor (FREESTYLE BRENDA 2 SENSOR) kit Apply new sensor every fourteen (14) days to upper arm. - loratadine (CLARITIN) 10 mg tablet Take 1 tablet by mouth once daily. - Potassium Citrate 15 mEq TbER Take 1 tablet by mouth two times a day. - fluticasone (FLONASE) 50 mcg/actuation nasal spray Use 2 Sprays in each nostril once daily. - gemfibrozil (LOPID) 600 mg tablet Take 1 tablet by mouth two times a day. - flash glucose scanning reader (FREESTYLE BRENDA 2 READER) 1 Each once daily. - insulin lispro (HUMALOG KWIKPEN INSULIN) 100 unit/mL Inject 4 Units subcutaneously three times a day before meals. Will titrate up as needed up to 40 units per day - blood sugar diagnostic (FREESTYLE LITE STRIPS) test strip Test blood sugar(s) up to 4 times daily. Dx: Type 2 DM - Uncontrolled E11.65 Insulin: Yes Dispense if reader for Freestyle Brenda 2 can use these test strips - insulin needles, DISPOSABLE, (PEN NEEDLE) 31 gauge x 5/16" Use one needle per dose. 4 per day. - CPAP Initiate Auto PAP @ 5-20 cm of water with humidification. Mask (per patient preference) optional chin strap (if indicated) , filters, tubing, humidifier and lifetime supplies. - CPAP Needs new APAP @ cm of water with humidification. Mask (per patient preference) optional chin strap (if indicated) , filters, tubing, humidifier and lifetime supplies. Diagnosis: SOLO G47.33 - Methylcellulose, Laxative, 500 mg tab Take by mouth. - Fish Oil-DHA-EPA 1,200-144-216 mg cap Take 2 capsules by mouth once daily. - MULTIVITAMIN TAB Take one(1) tablet daily. Problem List As Of Date 07/02/2024 Noted Resolved Essential hypertension [I10] Mixed hyperlipidemia [E78.2] OBESITY NOS [E66.9] 03/23/2015 Unspecified sleep apnea [G47.30] 09/11/2016 Allergic rhinitis [J30.9] 06/04/2008 ABNORMAL LIVER FUNCTION STUDY [R94.5] 06/04/2008 Diabetes mellitus type 2, controlled, without c*01/05/2011 08/31/2015 IFG (impaired fasting glucose) [R73.01] 08/31/2015 08/16/2023 Type 2 diabetes mellitus without complication, *03/26/2017 NICOLE (nonalcoholic steatohepatitis) [K75.81] 05/14/2018 Elevated ferritin [R79.89] 05/14/2018 Elevated antibody levels--Anti smooth muscle an*05/21/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 Subjective Lonnie Denton is a 58 year old male. Patient presents with: F/U 6 Month SUBJECTIVE: Lonnie Denton is a 58 year old year old gentleman here today for 6 month follow up appointment for review of medical conditions. Lonnie Denton is a 58-year-old male with a history of MASLD, impaired fasting glucose, and hypertension, presenting for follow-up. Lonnie is currently under the care of Dr. Sanchez, who recommended hepatitis A and B vaccinations. He is currently taking vitamin E 800 IU daily, as recommended by Dr. Sanchez, to slow or potentially reverse fibrosis. He is scheduled for an elastography in March. Lonnie is also taking benazepril-hydrochlo rothiazide as needed for blood pressure readings over 130 mmHg systolic. He typically takes half a pill, but may take a full pill depending on his blood pressure readings. He reports that his blood pressure is usually well-controlled, though it was elevated today. He monitors his blood pressure at home. Lonnie monitors his blood glucose levels regularly and notes that his average blood glucose was 146 mg/dL yesterday, down from a recent high of 151 mg/dL. He attributes the recent increase to stress from job loss and subsequent job search. He reports that his blood glucose levels are usually well-controlled during lunch and dinner, but tend to rise at night and in the morning. He checks his blood glucose levels at least 90 minutes after meals and notes that his levels peak about 3 hours after eating before starting to decrease. Two weeks ago, Lonnie experienced severe abdominal pain, which he describes as 7-10/10 in intensity. The pain was so severe that he was "crying out in pain" and required assistance with dressing. The pain was located on the right side and radiated to his back. He considered going to the hospital, but the pain began to subside during the car ride. He has a history of nephrolithiasis and suspects that the pain may have been due to a kidney stone. He denies nausea or emesis during the episode. He also reports a mild stomachache on the first day of his new job, which he attributes to nerves. He has a history of cholecystectomy. PAST MEDICAL HISTORY Diagnosis Date Allergic rhinitis, [...] sleep apnea Current Outpatient Medications Medication Sig flash glucose sensor (FREESTYLE BRENDA 2 SENSOR) kit Apply new sensor every fourteen (14) days to upper arm. loratadine (CLARITIN) 10 mg tablet Take 1 tablet by mouth once daily. Potassium Citrate 15 mEq TbER Take 1 tablet by mouth two times a day. fluticasone (FLONASE) 50 mcg/actuation nasal spray Use 2 Sprays in each nostril once daily. gemfibrozil (LOPID) 600 mg tablet Take 1 tablet by mouth two times a day. flash glucose scanning reader (FREESTYLE BRENDA 2 READER) 1 Each once daily. Benazepril-hydroCHLO ROthiazide 10-12.5 mg per tablet Take 1 tablet by mouth once daily. insulin lispro (HUMALOG KWIKPEN INSULIN) 100 unit/mL Inject 4 Units subcutaneously three times a day before meals. Will titrate up as needed up to 40 units per day blood sugar diagnostic (FREESTYLE LITE STRIPS) test strip Test blood sugar(s) up to 4 times daily. Dx: Type 2 DM - Uncontrolled E11.65 Insulin: Yes Dispense if reader for Freestyle Brenda 2 can use these test strips insulin needles, DISPOSABLE, (PEN NEEDLE) 31 gauge x 5/16" Use one needle per dose. 4 per day. CPAP Initiate Auto PAP @ 5-20 cm [...] TAB Take one(1) tablet daily. No current facility-administere d medications for this visit. Review of Systems Objective BP 140/58 Pulse 81 Ht 177 cm (5' (more content not included)... Normal [facility] Hepatic function 2000 panelo n 06-05-2024 Albumin [Mass/Vol] 5.0 g/dL High 3.9-4.9 [facility] Comment on above: Order Comment: Speci men Type: BLOOD SPECIMENOrdering Facility: [facility] Address: [facility][note 3] [place] [address] Performed By: #### 2 4325-3 ####[facility] RAJESH [facility] [id number] [place] [address] [place] ALP [Catalytic activity/Vol] 65 U/L Normal 38-113 [facility] Comment on above: Order Comment: Speci men Type: BLOOD SPECIMENOrdering Facility: [facility] Address: [address] [place] [address] Performed By: #### 2 4325-3 ####[facility] DEBBIELIA [id number] [place] [address] [place] ALT [Catalytic activity/Vol] 20 U/L Normal 10-54 [facility] Comment on above: Order Comment: Speci men Type: BLOOD SPECIMENOrdering Facility: [facility] Address: [address] [place] [address] Performed By: #### 2 4325-3 ####[facility] [id number] [place] [address] [place] AST [Catalytic activity/Vol] 27 U/L Normal 14-40 [facility] Comment on above: Order Comment: Speci men Type: BLOOD SPECIMENOrdering Facility: [facility] Address: [address] [place] [address] Performed By: #### 2 4325-3 ####[facility] [id number] [place] [address] [place] Bilirubin [Mass/Vol] 1.3 mg/dL Normal 0.2-1.3 [facility] Comment on above: Order Comment: Speci men Type: BLOOD SPECIMENOrdering Facility: [facility] Address: [address] [place] [address] Performed By: #### 2 4325-3 ####[facility] [id number] [place] [address] [place] Bilirubin.conjugated [Mass/Vol] 0.4 mg/dL High <0.3 [facility] Comment on above: Order Comment: Speci men Type: BLOOD SPECIMENOrdering Facility: [facility] Address: [address] [place] [address] Performed By: #### 2 4325-3 ####[facility] [id number] [place] [address] [place] Protein [Mass/Vol] 7.5 g/dL Normal 6.3-8.0 [facility] Comment on above: Order Comment: Speci men Type: BLOOD SPECIMENOrdering Facility: [facility] Address: [facility][note 3] [place] [address] Performed By: #### 2 4325-3 ####[facility] [id number] OF [facility] CNOVon 03-25-2024 CNOV Office Visit (GASTA5) LONNIE GAVIRIA ([id number]) 1965 M Date Time Provider Department 03/25/24 10:55 AM FRANCISCO SANCHEZ GASTA5 During your visit today, we recorded the following information about you: Temperature Pulse Blood pressure Weight 97.7 degrees 87/minute 157/73 84.4 kg Height 1.77 m Francisco Sanchez MD 03/25/2024 4:24 PM Signed Follow up MASLD/MASH Last visit November when I concluded: 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 HEENT: neg extrem: no edemas neuro: no AMS Imoression: MASLD/MASH HFE Compound heterozygote Long discussion re possible introduction of resmetirom/ He has done extensive reading on this and does not want to take it. I am reluctant to advocate for it because we have no practical monitoring tools in him Rec: continue current program Vitamin E 800 international unit(s) daily see 6-12 months. LAbs to include ferriting, iron studies 25 min more than 50% counseling Francisco Sanchez MD Referring Provider: FRANCISCO SANCHEZ [[id number]] Allergies As of Date: 03/25/2024 (No Known Allergies) Date Reviewed: 03/25/2024 Reviewed by: Brady Barrett MA - Fully Assessed Reason for Visit: Established Patient [175] Cmt: Autoimmune hepatitis treated with steroids Primary Visit Diagnosis:Liver disease [K76.9] Prescriptions as of 03/25/2024 - loratadine (CLARITIN) 10 mg tablet Take 1 tablet by mouth once daily. - flash glucose sensor (FREESTYLE BRENDA 2 SENSOR) kit Apply new sensor every fourteen (14) days to upper arm. - Potassium Citrate 15 mEq TbER Take 1 tablet by mouth two times a day. - fluticasone (FLONASE) 50 mcg/actuation nasal spray Use 2 Sprays in each nostril once daily. - gemfibrozil (LOPID) 600 mg tablet Take 1 tablet by mouth two times a day. - flash glucose scanning reader (FREESTYLE BRENDA 2 READER) 1 Each once daily. - Benazepril-hydroCHLO ROthiazide 10-12.5 mg per tablet Take 1 tablet by mouth once daily. - insulin lispro (HUMALOG KWIKPEN INSULIN) 100 unit/mL Inject 4 Units subcutaneously three times a day before meals. Will titrate up as needed up to 40 units per day - blood sugar diagnostic (FREESTYLE LITE STRIPS) test strip Test blood sugar(s) up to 4 times daily. Dx: Type 2 DM - Uncontrolled E11.65 Insulin: Yes Dispense if reader for Freestyle Brenda 2 can use these test strips - insulin needles, DISPOSABLE, (PEN NEEDLE) 31 gauge x 5/16" Use one needle per dose. 4 per day. - CPAP Initiate Auto PAP @ 5-20 cm of water with humidification. Mask (per patient preference) optional chin strap (if indicated) , filters, tubing, humidifier and lifetime supplies. - CPAP Needs new APAP @ cm of water with humidification. Mask (per patient preference) optional chin strap (if indicated) , filters, tubing, humidifier and lifetime supplies. Diagnosis: SOLO G47.33 - Methylcellulose, Laxative, 500 mg tab Take by mouth. - Fish Oil-DHA-EPA 1,200-144-216 mg cap Take 2 capsules by mouth once daily. - MULTIVITAMIN TAB Take one(1) tablet daily. Problem List As Of Date 03/25/2024 Noted Resolved Essential hypertension [I10] Mixed hyperlipidemia [E78.2] OBESITY NOS [E66.9] 03/23/2015 Unspecified sleep apnea [G47.30] 09/11/2016 Allergic rhinitis [J30.9] 06/04/2008 ABNORMAL LIVER FUNCTION STUDY [R94.5] 06/04/2008 Diabetes mellitus type 2, controlled, without c*01/05/2011 08/31/2015 IFG (impaired fasting glucose) [R73.01] 08/31/2015 08/16/2023 Type 2 diabetes mellitus without complication, *03/26/2017 NICOLE (nonalcoholic steatohepatitis) [K75.81] 05/14/2018 Elevated ferritin [R79.89] 05/14/2018 Elevated antibody levels--Anti smooth muscle an*05/21/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 (HEMAWS) Mer TALAVERAYAELLONNIE SAHA ([id number]) 1965 M Date Time Provider Department 03/12/24 10:10 AM MITCH HERNANDEZ During your visit today, we recorded the following information about you: Temperature Pulse Blood pressure Weight 98.3 degrees 85/minute 153/75 84.6 kg Height 1.77 m Cara Horne LPN 03/12/2024 9:57 AM Signed New Pt.. Discuss recent IgG values NICOLE Guardado Paul A, 03/12/2024 11:13 AM Signed Patient referred by Jean Sylvester APRN.[employer] for hypogammaglobulinemi a. HPI: The patient is a 58 yo male with a PMH as outlined below. Developed intensely itchy rash 12/2023. Pictures in dermatology note. 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 Used Kanalog cream as well as antihistamine and rash has since completely resolved. Was told he should have workup for plasma cell disorder. Recent lab work noted. Very mildly low serum immunoglobulin fraction on electrophoresis. No monoclonal protein. Mildly low total IgG. I spent time going through [facility] records. He was admitted summer 2022 for acute hepatitis and cholecystitis as well as pancreatitis. Underwent cholecystectomy. Had extensive workup which included serum immunoglobulins wherein the total IgG was 579 and all 4 subclasses of IgG were normal. Serum protein electrophoresis demonstrated no monoclonal protein. Immunofixation of the serum negative. Since he was diagnosed with steatohepatitis. [facility]. Liver biopsy slides reviewed at [facility]. 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 Most recent serum ferritin March 2023 normal. Acutely elevated to 1000 when he was hospitalized in 10/2022. PAST MEDICAL HISTORY Diagnosis Date Allergic rhinitis, [...] HgA1C>=6.5 Unspecified essential hypertension Unspecified sleep apnea PAST SURGICAL HISTORY Procedure Laterality Date EXCISION PILONIDAL CYST/SINUS COMPLICATED 1970s F LITHOTRIPSY 06/09/2020 [facility], Dr. Swan loratadine (CLARITIN) 10 mg tablet Take 1 tablet by mouth once daily. flash glucose sensor (FREESTYLE BRENDA 2 SENSOR) kit Apply new sensor every fourteen (14) days to upper arm. Potassium Citrate 15 mEq TbER Take 1 tablet by mouth two times a day. fluticasone (FLONASE) 50 mcg/actuation nasal spray Use 2 Sprays in each nostril once daily. gemfibrozil (LOPID) 600 mg tablet Take 1 tablet by mouth two times a day. flash glucose scanning reader (FREESTYLE BRENDA 2 READER) 1 Each once daily. Benazepril-hydroCHLO ROthiazide 10-12.5 mg per tablet Take 1 tablet by mouth once daily. (Patient taking differently: Take 1 tablet by mouth once daily. Taking PRN parameters if systolic is >130 takes 1/5 tablet) insulin lispro (HUMALOG KWIKPEN INSULIN) 100 unit/mL Inject 4 Units subcutaneously three times a day before meals. Will titrate up as needed up to 40 units per day (Patient taking differently: Inject 4 Units subcutaneously three times a day before meals. Will titrate up as needed up to 40 units per day 08/16/2023 is taking only as needed per Dr. Kearns 03/2023) blood sugar diagnostic (FREESTYLE LITE STRIPS) test strip Test blood sugar(s) up to 4 times daily. Dx: Type 2 DM - Uncontrolled E11.65 Insulin: Yes Dispense if reader for Freestyle Brenda 2 can use these test strips insulin needles, DISPOSABLE, (PEN NEEDLE) 31 gauge x 5/16" Use one needle per dose. 4 per day. CPAP Initiate Auto PAP @ 5-20 cm [...] daily. MULTIVITAMIN TAB Take one(1) tablet daily. ALLERGIES No Known Allergies Social History Tobacco Use Smoking status: Never Smokeless tobacco: Never Substance Use Topics Alcohol use: No Drug use: No FAMILY HISTORY Problem Relation Age of Onset Heart Mother Hypertension Mother Arthritis Mother fibromyalgia Chronic Kidney Disease Mother Coronary Artery Disease Father age 54 Diabetes Father other (Spina bifida) Sister other (Congenital Kidney problems) Sister other (Hemachromatosis, heterozygous) Sister Diabetes Patern (more content not included)... Normal [facility] 03-09-2024 CNPN Telephone (INTMWS) LONNIE GAVIRIA ([id number]) 1965 M Date Time Provider Department 03/09/24 JEAN SYLVESTER INTMWS During your visit today, we recorded the following information about you: Jean Sylvester APRN.[employer] 03/09/2024 10:44 AM Signed Please let Lonnie and his know that IgG came back just slightly on the low side. I will place a referral to hem/onc to discuss if any further treatment or work up is needed. Ginny Lowe LPN 03/09/2024 11:00 AM Signed PATIENT NOTIFIED OF SAME. Did request that results be forwarded to Dr. Sanchez for his review. This encounter forwarded as requested. Cara Horne LPN 03/09/2024 11:08 AM Signed Please check referral for appropriateness. NICOLE Guardado Paul A, DO 03/09/2024 1:26 PM Signed It will be faster if we see him rather than me trying to explain what to do. Mellisa Novak LPN 03/09/2024 1:31 PM Signed PSS- please contact patient to schedule a new patient appointment. NICOLE Drummond Stephanie 03/09/2024 1:39 PM Signed Spoke with patient's and scheduled. Francisco Bishop MD 03/10/2024 10:25 AM Signed I am aware and agree with plans liver enzymes remain normal. Francisco Sanchez MD Allergies As of Date: 03/09/2024 (No Known Allergies) Date Reviewed: 12/02/2023 Reviewed by: Lisandra Hendricks LPN - Fully Assessed Reason for Visit: Results [95] Primary Visit Diagnosis:Hypogammag lobulinemia (HCC) [D80.1] Order(s):CONSULT TO HEMATOLOGY/ONCOLOGY [[id number]] Order #: [id number]: 1 FUTURE Prescriptions as of 03/10/2024 - loratadine (CLARITIN) 10 mg tablet Take 1 tablet by mouth once daily. - flash glucose sensor (FREESTYLE BRENDA 2 SENSOR) kit Apply new sensor every fourteen (14) days to upper arm. - Potassium Citrate 15 mEq TbER Take 1 tablet by mouth two times a day. - fluticasone (FLONASE) 50 mcg/actuation nasal spray Use 2 Sprays in each nostril once daily. - gemfibrozil (LOPID) 600 mg tablet Take 1 tablet by mouth two times a day. - flash glucose scanning reader (FREESTYLE BRENDA 2 READER) 1 Each once daily. - Benazepril-hydroCHLO ROthiazide 10-12.5 mg per tablet Take 1 tablet by mouth once daily. - insulin lispro (HUMALOG KWIKPEN INSULIN) 100 unit/mL Inject 4 Units subcutaneously three times a day before meals. Will titrate up as needed up to 40 units per day - blood sugar diagnostic (FREESTYLE LITE STRIPS) test strip Test blood sugar(s) up to 4 times daily. Dx: Type 2 DM - Uncontrolled E11.65 Insulin: Yes Dispense if reader for Freestyle Brenda 2 can use these test strips - insulin needles, DISPOSABLE, (PEN NEEDLE) 31 gauge x 5/16" Use one needle per dose. 4 per day. - CPAP Initiate Auto PAP @ 5-20 cm of water with humidification. Mask (per patient preference) optional chin strap (if indicated) , filters, tubing, humidifier and lifetime supplies. - CPAP Needs new APAP @ cm of water with humidification. Mask (per patient preference) optional chin strap (if indicated) , filters, tubing, humidifier and lifetime supplies. Diagnosis: SOLO G47.33 - Methylcellulose, Laxative, 500 mg tab Take by mouth. - Fish Oil-DHA-EPA 1,200-144-216 mg cap Take 2 capsules by mouth once daily. - MULTIVITAMIN TAB Take one(1) tablet daily. Problem List As Of Date 03/09/2024 Noted Resolved Essential hypertension [I10] Mixed hyperlipidemia [E78.2] OBESITY NOS [E66.9] 03/23/2015 Unspecified sleep apnea [G47.30] 09/11/2016 Allergic rhinitis [J30.9] 06/04/2008 ABNORMAL LIVER FUNCTION STUDY [R94.5] 06/04/2008 Diabetes mellitus type 2, controlled, without c*01/05/2011 08/31/2015 IFG (impaired fasting glucose) [R73.01] 08/31/2015 08/16/2023 Type 2 diabetes mellitus without complication, *03/26/2017 NICOLE (nonalcoholic steatohepatitis) [K75.81] 05/14/2018 Elevated ferritin [R79.89] 05/14/2018 Elevated antibody levels--Anti smooth muscle an*05/21/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 Encounter Status:Closed by JEAN SYLVESTER on 03/09/24 Normal [facility] ALBUMIN/CREATININE RATIO, UR INEon 03-06-2024 Albumin DL <= 20 mg/L (U) [Mass/Vol] mg/dL Normal [facility] Comment on above: Order Comment: Speci men Type: URINE SPECIMENOrdering Facility: [facility] Address: [address] [place] [address] Performed By: #### U ACR ####[facility] LABCLIA [id number] [facility] [id number] [place] [address] [place] Albumin/Creatinine (U) [Mass ratio] <9 Normal <30 [facility] Comment on above: Order Comment: Speci men Type: URINE SPECIMENOrdering Facility: [facility] Address: [address] [place] [address] Result Comment: Adul t Male and Female Nephrotic Criteria: <30 mg/g is considered normal to mildly increased 30-300 mg/g is considered moderately increased >300 mg/g is considered severely increased KDIGO. (2013). KDIGO 2012 Clinical Practice Guideline for the Evaluation and Management of Chronic Kidney Disease. Official Journal of the International Society of Nephrology, 3(1), 1-150. Performed By: #### U ACR ####[facility] LABCLIA [id number] [place] [address] [place] Creatinine (U) [Mass/Vol] 130.7 mg/dL Normal 20.0-300.0 [facility] Comment on above: Order Comment: Speci men Type: URINE SPECIMENOrdering Facility: [facility] Address: [address] [place] [address] Performed By: #### U ACR ####[facility] LABCLIA [id number] [address] [place] CBC panel Auto (Bld)on 03-06 Erythrocyte distribution width (RBC) [Ratio] 12.2 % Normal 11.5-15.0 [facility] Comment on above: Order Comment: Speci men Type: BLOOD SPECIMENOrdering Facility: [facility] Address: [address] [place] [address] Performed By: #### 5 8410-2 ####[facility] [id number] [address] [place] Hematocrit (Bld) [Volume fraction] 47.9 % Normal 39.0-51.0 [facility] Comment on above: Order Comment: Speci men Type: BLOOD SPECIMENOrdering Facility: [facility] Address: [address] [place] [address] Performed By: #### 5 8410-2 ####[facility] [id number] [place] [address] [place] Hemoglobin (Bld) [Mass/Vol] 16.8 g/dL Normal 13.0-17.0 [facility] Comment on above: Order Comment: Speci men Type: BLOOD SPECIMENOrdering Facility: [facility] Address: [address] [place] [address] Performed By: #### 5 8410-2 ####[facility] TORSTEN [id number] [address] MCH (RBC) [Entitic mass] 31.1 pg Normal 26.0-34.0 [facility] Comment on above: Order Comment: Speci men Type: BLOOD SPECIMENOrdering Facility: [facility] Address: [address] [place] [address] Performed By: #### 5 8410-2 ####[facility]OS[facility]ITALJASONSHONDA [id number] [address] [place] [facility] MCHC (RBC) [Mass/Vol] 35.1 g/dL Normal 30.5-36.0 [facility] Comment on above: Order Comment: Speci men Type: BLOOD SPECIMENOrdering Facility: [facility] Address: [address] [place] [address] Performed By: #### 5 8410-2 ####[facility]ITALJASONSHONDA [id number] [address] [place] MCV (RBC) [Entitic vol] 88.5 fL Normal 80.0-100.0 [facility] Comment on above: Order Comment: Speci men Type: BLOOD SPECIMENOrdering Facility: [facility] Address: [address] [place] [address] Performed By: #### 5 8410-2 ####[facility]ITALNCLIA [id number] [address] Nucleated RBC (Bld) [#/Vol] 10*3/uL Normal <0.01 [facility] Comment on above: Order Comment: Speci men Type: BLOOD SPECIMENOrdering Facility: [facility] Address: [address] [place] [address] Performed By: #### 5 8410-2 ####[facility] CHUCKWNCLIA [id number] [place] [address] [place] Platelet mean volume (Bld) [Entitic vol] 11.3 fL Normal 9.0-12.7 [facility] Comment on above: Order Comment: Speci men Type: BLOOD SPECIMENOrdering Facility: [facility] Address: [address] [place] [address] Performed By: #### 5 8410-2 ####[facility]ITALNCLIA [id number] [place] [address] [place] Platelets (Bld) [#/Vol] 198 10*3/uL Normal 150-400 [facility] Comment on above: Order Comment: Speci men Type: BLOOD SPECIMENOrdering Facility: [facility] Address: [address] [place] [address] Performed By: #### 5 8410-2 ####[facility]ITALNCLIA [id number] [place] [address] [place] RBC (Bld) [#/Vol] 5.41 10*6/uL Normal 4.20-6.00 [facility] Comment on above: Order Comment: Speci men Type: BLOOD SPECIMENOrdering Facility: [facility] Address: [address] [place] [address] Performed By: #### 5 8410-2 ####[facility] DUBLINLIA [id number] [place] [address] [place] WBC (Bld) [#/Vol] 6.03 10*3/uL Normal 3.70-11.00 [facility] Comment on above: Order Comment: Speci men Type: BLOOD SPECIMENOrdering Facility: [facility] Address: [address] [place] [address] Performed By: #### 5 8410-2 ####[facility]ITALNCLIA [id number] [place] [address] [place] HbA1c (Bld)on 03-06-2024 Average glucose Estimated from glycated hemoglobin (Bld) [Mass/Vol] 123 mg/dL Normal [facility] Comment on above: Order Comment: Jairon leigh Type: BLOOD SPECIMENOrdering Facility: [facility] Address: [address] [place] [address] Result Comment: eAG: (Estimated average glucose) is a calculated value from HgbA1c and is architectural representative of the average blood glucose level in the last 2-3 month period. Performed By: #### 5 5454-3 ####[facility] LABCLIA [id number] [place] [address] [place] HbA1c (Bld) [Mass fraction] 5.9 % High 4.3-5.6 [facility] Comment on above: Order Comment: Jairon leigh Type: BLOOD SPECIMENOrdering Facility: [facility] Address: [address] [place] [address] Result Comment: Amer [place] Diabetes Association guidelines indicate that patients with HgbA1c in the range 5.7-6.4% are at increased risk for development of diabetes, and intervention by lifestyle modification may be beneficial. HgbA1c greater or equal to 6.5% is considered diagnostic of diabetes. Performed By: #### 5 5454-3 ####[facility] LABCLIA [id number] [place] [address] [place] Hepatic function 2000 panelo n 03-06-2024 Albumin [Mass/Vol] 5.0 g/dL High 3.9-4.9 [facility] Comment on above: Order Comment: Jairon leigh Type: BLOOD SPECIMENOrdering Facility: [facility] Address: [address] [place] [address] Performed By: #### 2 4325-3 ####[facility]ESHST[facility] – STILLWATERLI [id number] [place] [address] [place] ALP [Catalytic activity/Vol] 69 U/L Normal 38-113 [facility] Comment on above: Order Comment: Speci men Type: BLOOD SPECIMENOrdering Facility: [facility] Address: [address] [place] [address] Performed By: #### 2 4325-3 ####[facility] CHUCKFORKSNCLIA [id number] [place] [address] [place] ALT [Catalytic activity/Vol] 21 U/L Normal 10-54 [facility] Comment on above: Order Comment: Speci men Type: BLOOD SPECIMENOrdering Facility: [facility] Address: [address] [place] [address] Performed By: #### 2 4325-3 ####[facility]ITALNCLIA [id number] [place] [address] [place] AST [Catalytic activity/Vol] 24 U/L Normal 14-40 [facility] Comment on above: Order Comment: Speci men Type: BLOOD SPECIMENOrdering Facility: [facility] Address: [address] [place] [address] Performed By: #### 2 4325-3 ####[facility]ITALNCLIA [id number] [place] [address] [place] Bilirubin [Mass/Vol] 1.1 mg/dL Normal 0.2-1.3 [facility] Comment on above: Order Comment: Speci men Type: BLOOD SPECIMENOrdering Facility: [facility] Address: [address] [place] [address] Performed By: #### 2 4325-3 ####[facility]ITALNCLIA [id number] [place] [address] [place] Bilirubin.conjugated [Mass/Vol] 0.3 mg/dL High <0.2 [facility] Comment on above: Order Comment: Speci men Type: BLOOD SPECIMENOrdering Facility: [facility] Address: [address] [place] [address] Result Comment: Resu lts may be falsely decreased due to interference from hemolysis. Suggest reorder as clinically indicated. Performed By: #### 2 4325-3 ####[facility] [id number] [place] [address] [place] Protein [Mass/Vol] 7.3 g/dL Normal 6.3-8.0 [facility] Comment on above: Order Comment: Speci men Type: BLOOD SPECIMENOrdering Facility: [facility] Address: [address] [place] [address] Performed By: #### 2 4325-3 ####[facility] [id number] [place] [address] [place] IMMUNOGLOBULINS,IGG,IGA,IGMo n 03-06-2024 IgA [Mass/Vol] 86 mg/dL Normal 70-400 [facility] Comment on above: Order Comment: Speci men Type: BLOOD SPECIMENOrdering Facility: [facility] Address: [address] [place] [address] Performed By: #### S ERIMM ####[facility] LABCLIA [id number] [place] [address] [place] IgG [Mass/Vol] 669 mg/dL Low 700-1600 [facility] Comment on above: Order Comment: Speci men Type: BLOOD SPECIMENOrdering Facility: [facility] Address: [address] [place] [address] Performed By: #### S ERIMM ####[facility] LABCLIA [id number] [place] [address] [place] IgM [Mass/Vol] 55 mg/dL Normal 40-230 [facility] Comment on above: Order Comment: Speci men Type: BLOOD SPECIMENOrdering Facility: [facility] Address: [address] [place] [address] Performed By: #### S ERIMM ####[facility] LABCLIA [id number] [place] [address] [address] [facility]ITALR[facility]-2024 CNPN Telephone (INTMWS) LONNIE GAVIRIA ([id number]) 1965 M Date Time Provider Department 02/27/24 MOLLY KEARNS INTMWS During your visit today, we recorded the following information about you: Traci Jordan RN 02/27/2024 3:30 PM Signed Patient and calls and states that patient had a rash over body that looked like a bullseye. Patient was seen at [facility] where he was tested for lyme disease as well as protein electrophoresis serum. Results are in labs. Patient's Gamma Globulin was at 0.52 which is abnormal low. [facility] had told patient that with the Bullseye rash and abnormal blood test that patient may want to see hematology for this. is asking if provider can advise about this on whether more labs need to be done or should patient see hematology for this? Please review and advise, GUNNAR Reese Amanda, RN 02/28/2024 3:37 PM Signed Pt calling back in about the following lab done here on 01/21/24: Gamma Globulin 0.53 - 1.51 g/dL 0.52 Low Pt asking if he will need to get more labs added to his lab work for when he comes in for his doctor appointment. He said [facility] told him to call PCP and ask about his. Pt would like provider to call him back on his cell #. I told him I didn't know if they would get back to him this week. Jean Sylvester APRN.[employer] 02/28/2024 3:50 PM Signed Please let them know that liver dysfunction can be a cause of low gamma globulin so that is a possibility. I can reach out to hem/onc and see if they recommend any additional testing or referral but with that being the only abnormal on the panel I would not refer at this point. Sofi Rapp RN 02/28/2024 4:03 PM Signed Pt called and is notified of providers message and instructions. Pt voices understanding. Pt would like provider to get a hold of hem/onc and see if they would like any additional testing. Please call and advise Pt once provider hears from them. GUNNAR Escobar Rosa, APRN.[employer] 03/02/2024 1:47 PM Signed Please return call, let them know hem/onc recommended some follow up blood work to check IGG, IGA, IGM levels. Orders placed. Also can we check on getting the office note from [employer] for this? Thank you! Ginny Lowe LPN 03/02/2024 2:00 PM Signed PATIENT NOTIFIED OF SAME. Will have labs completed 03/06/24 Records released faxed to [facility]. 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 - flash glucose sensor (FREESTYLE BRENDA 2 SENSOR) kit Apply new sensor every fourteen (14) days to upper arm. - Potassium Citrate 15 mEq TbER Take 1 tablet by mouth two times a day. - fluticasone (FLONASE) 50 mcg/actuation nasal spray Use 2 Sprays in each nostril once daily. - gemfibrozil (LOPID) 600 mg tablet Take 1 tablet by mouth two times a day. - flash glucose scanning reader (FREESTYLE BRENDA 2 READER) 1 Each once daily. - Benazepril-hydroCHLO ROthiazide 10-12.5 mg per tablet Take 1 tablet by mouth once daily. - insulin lispro (HUMALOG KWIKPEN INSULIN) 100 unit/mL Inject 4 Units subcutaneously three times a day before meals. Will titrate up as needed up to 40 units per day - blood sugar diagnostic (FREESTYLE LITE STRIPS) test strip Test blood sugar(s) up to 4 times daily. Dx: Type 2 DM - Uncontrolled E11.65 Insulin: Yes Dispense if reader for Freestyle Brenda 2 can use these test strips - insulin needles, DISPOSABLE, (PEN NEEDLE) 31 gauge x 5/16" Use one needle per dose. 4 per day. - CPAP Initiate Auto PAP @ 5-20 cm of water with humidification. Mask (per patient preference) optional chin strap (if indicated) , filters, tubing, humidifier and lifetime supplies. - CPAP Needs new APAP @ cm of water with humidification. Mask (per patient preference) optional chin strap (if indicated) , filters, tubing, humidifier and lifetime supplies. Diagnosis: SOLO G47.33 - Methylcellulose, Laxative, 500 mg tab Take by mouth. - Fish Oil-DHA-EPA 1,200-144-216 mg cap Take 2 capsules by mouth once daily. - MULTIVITAMIN TAB Take one(1) tablet daily. Problem List As Of Date 02/27/2024 Noted Resolved Essential hypertension [I10] Mixed hyperlipidemia [E78.2] OBESITY NOS [E66.9] 03/23/2015 Unspecified sleep apnea [G47.30] 09/11/2016 Allergic rhinitis [J30.9] 06/04/2008 ABNORMAL LIVER FUNCTION STUDY [R94.5] 06/04/2008 Diabetes mellitus type 2, controlled, without c*01/05/2011 08/31/2015 IFG (impaired fasting glucose) [R73.01] 08/31/2015 08/16/2023 (more content not included)... Normal [facility] Lyme Antibodies,W [place] LYME IgG INTERP Negative Normal . [facility] Comment on above: Result Comment: Posi tive: 5 of the following Borrelia-specific bands: 18,23,28,30,39,41,45,58, 66, and 93. Negative: No bands or banding patterns which do not meet positive criteria. Performed By: #### L 7000.5800 #### [facility] [place], [address] LYME IgM INTERP Negative Normal . [facility] Comment on above: Result Comment: Note : An equivocal or positive EIA result followed by a negative Line Blot result is considered NEGATIVE. An equivocal or positive EIA result followed by a positive Line Blot is considered POSITIVE by the CDC. Positive: 2 of the following bands: 23,39 or 41 Negative: No bands or banding patterns which do not meet positive criteria. Criteria for positivity are those recommended by CDC/ASTPHLD. p23=Osp C, d46=nozkhovtz Note: Sera from individuals with the following may cross react in the Lyme Line Blot assays: other spirochetal diseases (periodontal disease, leptospirosis, relapsing fever, yaws, and pinta); connective autoimmune (Rheumatoid Arthritis and Systemic Lupus Erythematosus and also individuals with Antinuclear Antibody); other infections (Huntington Spotted Fever; Cassandra-Smith Virus, and Cytomegalovirus). Please Note: Lyme immunoblot alone is not recommended for the diagnosis of Lyme disease. Current guidelines recommend the use of a two-tiered approach to Lyme serology testing to improve the sensitivity and specificity of testing. [facility] offers test code 089556 Lyme Disease Serology with Reflex to aid in the diagnosis of Lyme Disease. Performed at: [address] [id number] Leather Carver: Renee Cantrell MD, Phone: [phone] Performed By: #### L 7000.5800 #### [facility] [address] [place], [address] P18 Ab Absent Normal . [facility] Comment on above: Performed By: #### L 7000.5800 #### [facility] [address] [place], [address] P23 Ab Absent Normal . [facility] Comment on above: Performed By: #### L 7000.5800 #### [facility] [address] [place], [address] P28 Ab Absent Normal . [facility] Comment on above: Performed By: #### L 7000.5800 #### [facility] [address] [place], [address] P30 Ab Absent Normal . [facility] Comment on above: Performed By: #### L 7000.5800 #### [facility] [address] [place], [address] P39 Ab Absent Normal . [facility] Comment on above: Performed By: #### L 7000.5800 #### [facility] [address] [place], [address] P41 Ab Absent Normal . [facility] Comment on above: Performed By: #### L 7000.5800 #### [facility] [address] [place], [address] P45 Ab Absent Normal . [facility] Comment on above: Performed By: #### L 0.5800 #### [facility] [address] [place], [address] P58 Ab Present Abnormal . [facility] Comment on above: Performed By: #### L 0.5800 #### [facility] [address] [place], [address] P66 Ab Absent Normal . [facility] Comment on above: Performed By: #### L 7000.5800 #### [facility] [address] [place], [address] P93 Ab Absent Normal . [facility] Comment on above: Performed By: #### L 7000.5800 #### [facility] [address] [place], [address] Miscellaneous Lab Procedure 2on 05-07-2023 [facility] LAB TEST 2 Normal [facility] Comment on above: Order Comment: PROTE CT FROM LIGHT PORPHYRINS [place]OM URINE [id number] Result Comment: TEST RESULTS LIMITS Porphyrins, Qn, Random U Uroporphyrins (UP) 23 High ug/L 0-20 Specimen received had a pH less than five (<5.0). Porphyrins are not stable at low pH. Interpret results with caution. If acid preservative was used, consider resubmitting an aliquot from a sample that was collected with 5g sodium carbonate/L urine. A sample with no preservative is also acceptable. Heptacarboxyl (7-CP) 6 High ug/L 0-2 Hexacarboxyl (6-CP) 7 High ug/L 0-1 Pentacarboxyl (5-CP) <1 ug/L 0-2 Coproporphyrin (CP) I 0 25 High ug/L 0-15 Coproporphyrin (CP) III 15 ug/L 0-49 TESTING PERFORMED AT [facility]. ORIGINAL REPORT ON FILE IN LAB CONTAINS ADDITIONAL TEST SITE INFORMATION. Performed By: #### L 801.1543, L801.1541 #### [facility] [address] [place], [address] Gastroenterology Visit Repor ton 05-06-2023 Gastroenterology Visit Report [facility] [address] [facility] [place] [address] OFFICE VISIT Date of Service: 05/06/23 MR#: [id number] Acct: [id number] Name: LONNIE MORA Rep #: [id number] : 1965 Provider: Dr. Ebenezer crowe MD Age/Sex: 57/M [place] [facility] Status: Signed Intake Vital Signs 04/04/23 10:30 05/06/23 10:55 Height 5 ft 10 in 5 ft 10 in Weight: 181 lb 8 oz 182 lb BMI 26.0 26.1 BP 162/71 H 157/74 H Blood Pressure Location Lt brachial Lt brachial Position Sitting Sitting Respiration 18 Pulse 78 79 Pulse Source Monitor Temp 98.3 F Pulse Oximetry (%) 99 98 Oxygen Delivery Method room air room air Intake Visit Reasons: FU Chief Complaint: Hemochromatosis Allergies clemastine [From Tavist] Allergy (Verified 05/06/23 10:54) Rash pseudoephedrine [From Tavist] Allergy (Verified 05/06/23 10:54) Rash Medications benazepril 10 mg-hydrochlorothiazi de 12.5 mg tablet 0.5 tab PO DAILY 06/07/20 [History Confirmed 05/06/23] fluticasone propionate 50 mcg/actuation nasal spray,suspension 1 spray NASAL DAILY 06/07/20 [History Confirmed 05/06/23] gemfibrozil 600 mg tablet 600 mg PO BIDAC 06/07/20 [History Confirmed 05/06/23] loratadine 10 mg tablet 10 mg PO DAILY 06/07/20 [History Confirmed 05/06/23] multivitamin 1 ea PO DAILY 06/07/20 [History Confirmed 05/06/23] omega 0-fwy-vra-fish oil 1,200 mg (144 mg-216 mg) capsule (Fish Oil) cap PO general health 10/18/22 [History Confirmed 05/06/23] flash glucose scanning reader ([facility] [place]) 03/18/23 [History Confirmed 05/06/23] insulin lispro 100 unit/mL subcutaneous pen (Humalog KwikPen (U-100) Insulin) 4 unit subcut TID 03/18/23 [History Confirmed 05/06/23] potassium citrate 15 mEq (1,620 mg) tablet,extended release 15 meq PO BID 03/18/23 [History Confirmed 05/06/23] nutritional supplement-fiber oral ea PO 05/06/23 [History Confirmed 05/06/23] PFSH Medical History Acute gallstone pancreatitis Diabetes High cholesterol Hypertension Obstructive sleep apnea Surgical History History of cholecystectomy Family History Father Diabetes Heart disease Grandmother No problems noted. Grandfather Heart disease Mother Hypertension Kidney disease Sister Iron deficiency Social History Smoking Status: Never smoker alcohol intake: never substance use type: does not use what type of physical activity do you participate in: walking frequency: 3-4 times per week HPI HPI Chief Complaint: Hemochromatosis Details: LONNIE MORA, is a 57 M who presents to the office today for follow up. Patient established to [facility] through [facility] hospitalization 10.18.22-10.23.22 with abdominal pain and loose stools. WSA consulted 10.19 for acute cholecystits and acute gallstone pancreatitis. Cholecystectomy on 10.19.22. G.I. consulted 10.20.22 for acute hepatitis. Hemochromatosis found on 10.21.22. PMH- High Cholesterol, Hypertension, Diabetes, SOLO. Liver Biopsy- 10.22.22 showed extensive macro and microvesicular steatosis, acute and chronic hepatitis, grade 2, stage 2. Last Biochemical Workup 10.22.22- Neut H86.4, Lymph L6.3, ESR H47, Sodium L 134, Potassium L 3.1, GLU H 275, BUN H 21, BUN/CreatininenH 25.7, Total Bili H 10.60, AST H 579, ALT 755, AP H 317, CRP H 52.30, ALB L 2.8 OV 11.13.22 States overall he has been doing better since his hospitalization. States that his energy is returning. States that his BMs are normal now and denies any abdominal pain. OV 11- Pt doing very well since last visit. Denies any abdominal pain, bowel issues, swelling. Patient and his wanted discussion regarding elevated ferritin, biopsy report and abnormal liver tests OV 1- Pt here to follow up lab tests. Patient denies any symptoms of jaundice, itching, fatigue, abnormal urine color, abdominal pain or distention. Bowel movement normal. No fever. Clinically asymptomatic. ROS Const Constitutional: No fatigue ENT ENT: No difficulty swallowing Gastro GI: No abdominal pain, belching, bloating, change in bowel habits, change in stool character, coffee ground emesis, constipation, cramping, diarrhea, heartburn, difficulty swallowing, feeling full early, excessive flatus, incontinent of stools, Vomiting blood/hematemesis, Blood in stool, loose stools, Black,tarry stools, nausea/dyspepsia, pain with swallowing, vomiting or other Musc Musculoskeletal: No joint pain Skin Skin: No yellowing of the eye or itchy eyes Psych Psychiatric: No anxiety and No depression Endo Endocrine: No fatigue Aller/Imm Allergy/Immunologic: No itchy eyes Fausto/ (more content not included)... Normal [facility] Miscellaneous Lab Procedureo n 04-28-2023 [facility] [place] LAB TEST Normal [facility] Comment on above: Order Comment: PROTE CT FROM LIGHT AUTOIMMUNE LIVER [id number] SER/RF Result Comment: TEST RESULTS LIMITS Autoimmune Liver Profile (RDL) Anti-Nuclear Ab by IFA (RDL)A, Positive Abnormal Negative Speckled Pattern A, 1:160 High <1:40 Note: LULU performed by Indirect Fluorescent Antibody (IFA) ANCA by IFA (RDL) Negative Negative Anti-Chromatin Ab, IgG (RDL) <20 Units <20 Anti-Liver/Kidney Ab (RDL) A, <20 Units <20 Negative: <20 Equivocal: 20 - 25 Positive: >25 Anti-Mitochondrial M2 Ab(RDL) <20 Units <20 Negative: <20 Equivocal: 20 - 25 Positive: >25 Anti-Soluble Liver Ag Ab (RDL) <20 Units <20 Negative: <20 Equivocal: 20 - 25 Positive: >25 Anti-Smooth Muscle Ab by IFA 1:20 High <1:20 Anti-Mitochondrial Ab by IFA A, <1:20 <1:20 Interpretation for Anti-Chromatin: Negative: <20 Weak Positive: 20 - 39 Moderate Positive: 40 - 80 Strong Positive: >80 Comments A: This test was developed and its performance characteristics determined by [facility]. It has not been cleared or approved by the Food and Drug Administration. TESTING PERFORMED AT [facility]. ORIGINAL REPORT ON FILE IN LAB CONTAINS ADDITIONAL TEST SITE INFORMATION. Performed By: #### L 801.1543, L801.1541 #### [facility] Laboratory [address] [place], [address] Oncology Visit Reporton 03-22 Oncology Visit Report [facility] [address] [place] [address] OFFICE VISIT Date of Service: 04/04/23 1028 MR#: [id number] Acct: [id number] Name: LONNIE MORA Rep #: [id number] : 1965 From: Viry Paul MD Age/Sex: 57/M [place] [facility] Status: Signed HPI Subjective Date of Service 04/04/23 Chief Complaint Hemochromatosis History of Present Illness 57 YOM with chronic liver disease 2ry to steatosis and chronic fluctuations of Fe studies. 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 [facility] Medical History (Updated 04/04/23 @ 12:[address] Viry Paul MD) Acute gallstone pancreatitis Diabetes High cholesterol Hypertension Obstructive sleep apnea Surgical History (Updated 04/04/23 @ 10:36 by Sharyn Marks) History of cholecystectomy Family History (Updated 04/04/23 @ 10:38 by Sharyn Marks) Father Diabetes Heart disease Grandmother No problems noted. Grandfather Heart disease Mother Hypertension Kidney disease Sister Iron deficiency Social History (Updated 04/04/23 @ 10:38 by Sharyn Marks) Smoking Status: Never smoker alcohol intake: never substance use type: does not use what type of physical activity do you participate in: walking frequency: 3-4 times per week ROS Constitutional Constitutional: Reports systems reviewed and no addt'l complaints, except as documented ENT HEENT: Reports systems reviewed and no addt'l complaints, except as documented Cardiovascular Cardiovascular: Reports systems reviewed and no addt'l complaints, except as documented Gastrointestinal Gastrointestinal: Reports systems reviewed and no addt'l complaints, except as documented; Denies abdominal pain Musculoskeletal Musculoskeletal: Reports systems reviewed and no addt'l complaints, except as documented; Denies arthralgias Integumentary Integumentary: Reports systems reviewed and no addt'l complaints, except as documented; Denies new lesions or rash Neurologic Neurologic: Reports systems reviewed and no addt'l complaints, except as documented Psychiatric Psychiatric: Reports systems reviewed and no addt'l complaints, except as documented Endocrine Endocrinology: Reports systems reviewed and no addt'l complaints, except as documented Hematologic/Lymphati c Hematologic/Lymphati c: Reports systems reviewed and no addt'l complaints, except as documented Allergic/Immunologic Allergic/Immunologic : Reports systems reviewed and no addt'l complaints, except as documented Intake Vital Signs 03/18/23 12:58 04/04/23 10:30 Height 5 ft 10 in 5 ft 10 in Weight: 83.915 kg 82.327 kg BMI 26.5 26.0 BP 169/79 H 162/71 H Blood Pressure Location Lt brachial Lt brachial Position Sitting Sitting Respiration 18 Pulse 79 78 Pulse Source Monitor Temp 98.3 F Temperature Source Temporal Artery Pulse Oximetry (%) 96 99 Oxygen Delivery Method room air room air Intake Is patient in pain?: No Allergies clemastine [From Tavist] Allergy (Verified 04/04/23 10:32) Rash pseudoephedrine [From Tavist] Allergy (Verified 04/04/23 10:32) Rash Medications benazepril 10 mg-hydrochlorothiazi de 12.5 mg tablet 0.5 tab PO DAILY 06/07/20 [History Confirmed 03/18/23] fluticasone propionate 50 mcg/actuation nasal spray,suspension 1 spray NASAL DAILY 06/07/20 [History Confirmed 03/18/23] gemfibrozil 600 mg tablet 600 mg PO BIDAC 06/07/20 [History Confirmed 03/18/23] loratadine 10 mg tablet 10 mg PO DAILY 06/07/20 [History Confirmed 03/18/23] multivitamin 1 ea PO DAILY 06/07/20 [History Confirmed 03/18/23] omega 6-fdf-ntq-fish oil 1,200 mg (144 mg-216 mg) capsule (Fish Oil) cap PO general health 10/18/22 [History Confirmed 03/18/23] flash glucose scanning reader ([employer] [place]) 03/18/23 [History Confirmed 03/18/23] insulin lispro 100 unit/mL subcutaneous pen (Humalog KwikPen (U-100) Insulin) 4 unit subcut TID 03/18/23 [History Confirmed 03/18/23] methylcellulose (laxative) 500 mg tablet 500 mg PO DAILY 03/18/23 [History Confirmed 03/18/23] potassium citrate 15 mEq (1,620 mg) tablet,extended release 15 meq PO BID 03/18/23 [History Confirmed 03/18/23] Central Venous Access Central Venous Access: No Laboratory Tests 10/20/22 03/25/2023 [facility] Lab [facility] Iron Saturation 24.0 47% (15-57%) Ferritin 73987 H 420 (30-565) 10/22/2022 Liver, CT-guided core biopsy: Liver parenchymal tissue with extensive macro- and microvesicular steatosis, acute and chronic hepatitis, grade 2, stage 2. Exam Physical Exam Narrative ECOG 0 Const alert, oriented x3 and no apparent distress Gen (more content not included)... Normal [facility] Gastroenterology Visit Repor ton 03-18-2023 Gastroenterology Visit Report [facility] [address] [place] [address] OFFICE VISIT Date of Service: 03/18/23 MR#: [id number] Acct: [id number] Name: LONNIE MORA Rep #: [id number] : 1965 Provider: Dr. Ebenezer crowe MD Age/Sex: 57/M [place] [facility] [place] Status: Signed with Addenda ADDENDUM by Dr. Ebenezer Arias MD on 03/19/23 at 0809 HPI Details: LONNIE MORA, is a 57 M who presents to the office today for Assessment Plan PLAN: Plan Patient has high transferrin saturation and high ferritin therefore probability of heritditary Hemocromatpsis or secondary iron overload syndorme therefore I discussed with Dr. Paul and requested HEMATATOLGY consult and r/o secondary ironoverlaod before diagnosing HH and phelbetomy. I told the Dagmar to inform the patient 03/19/23 0809 Date Ebenezer Arias MD cc: * Signed Intake Vital Signs 10/19/22 14:57 03/18/23 12:58 Height 5 ft 10 in 5 ft 10 in Weight: 185 lb BMI 26.5 BP 169/79 H Blood Pressure Location Lt brachial Position Sitting Pulse 79 Pulse Oximetry (%) 96 Oxygen Delivery Method room air Intake Visit Reasons: First Visit 61 Chief Complaint: f/u Allergies clemastine [From Tavist] Allergy (Verified 03/18/23 12:56) Rash pseudoephedrine [From Tavist] Allergy (Verified 03/18/23 12:56) Rash Medications ondansetron 4 mg disintegrating tablet 4 mg PO Q8H PRN PRN Nausea #10 tabs 06/04/20 [Rx Confirmed 03/18/23] benazepril 10 mg-hydrochlorothiazi de 12.5 mg tablet 0.5 tab PO DAILY 06/07/20 [History Confirmed 03/18/23] fluticasone propionate 50 mcg/actuation nasal spray,suspension 1 spray NASAL DAILY 06/07/20 [History Confirmed 03/18/23] gemfibrozil 600 mg tablet 600 mg PO BIDAC 06/07/20 [History Confirmed 03/18/23] loratadine 10 mg tablet 10 mg PO DAILY 06/07/20 [History Confirmed 03/18/23] multivitamin 1 ea PO DAILY 06/07/20 [History Confirmed 03/18/23] omega 7-eei-kxm-fish oil 1,200 mg (144 mg-216 mg) capsule (Fish Oil) cap PO general health 10/18/22 [History Confirmed 03/18/23] tramadol 50 mg tablet 50 mg PO Q6H PRN pain #10 tabs 10/22/22 [Rx Confirmed 03/18/23] flash glucose scanning reader ([employer] [place]) 03/18/23 [History Confirmed 03/18/23] insulin lispro 100 unit/mL subcutaneous pen (Humalog KwikPen (U-100) Insulin) 4 unit subcut TID 03/18/23 [History Confirmed 03/18/23] methylcellulose (laxative) 500 mg tablet 500 mg PO DAILY 03/18/23 [History Confirmed 03/18/23] potassium citrate 15 mEq (1,620 mg) tablet,extended release 15 meq PO BID 03/18/23 [History Confirmed 03/18/23] [facility] Medical History Acute gallstone pancreatitis Diabetes High cholesterol Hypertension Obstructive sleep apnea Social History Smoking Status: Never smoker HPI HPI Chief Complaint: f/u Details: LONNIE MORA, is a 57 M who presents to the office today for follow up. Patient established to [facility] through [facility] hospitalization 10.18.22-10.23.22 with abdominal pain and loose stools. WSA consulted 09.22 for acute cholecystits and acute gallstone pancreatitis. Cholecystectomy on 10.19.22. G.I. consulted 10.20.22 for acute hepatitis. Hemochromatosis found on 10.21.22. PMH- High Cholesterol, Hypertension, Diabetes, SOLO. Liver Biopsy- 10.22.22 showed extensive macro and microvesicular steatosis, acute and chronic hepatitis, grade 2, stage 2. Last Biochemical Workup 10.22.22- Neut H86.4, Lymph L6.3, ESR H47, Sodium L 134, Potassium L 3.1, GLU H 275, BUN H 21, BUN/Creatininen H 25.7, Total Bili H 10.60, AST H 579, ALT 755, AP H 317, CRP H 52.30, ALB L 2.8 OV 11.13.22 States overall he has been doing better since his hospitalization. States that his energy is returning. States that his BMs are normal now and denies any abdominal pain. OV 03.18.23- Pt doing very well since last visit. Denies any abdominal pain, bowel issues, swelling. Patient and his wanted discussion regarding elevated ferritin, biopsy report and abnormal liver tests. ROS Const Constitutional: No fatigue ENT ENT: No difficulty swallowing Gastro GI: No abdominal pain, belching, bloating, change in bowel habits, change in stool character, coffee ground emesis, constipation, cramping, diarrhea, heartburn, difficulty swallowing, feeling full early, excessive flatus, incontinent of stools, Vomiting blood/hematemesis, Blood in stool, loose stools, Black,tarry stools, nausea/dyspepsia, pain with swallowing, vomiting or other Musc Musculoskeletal: No joint pain Skin Skin: No yellowing of the eye or itchy eyes Psych Psychiatric: No anxiety and No depression Endo Endocrine: No fatigue Aller/Imm Allergy/Immunologic: No itchy e (more content not included)... Normal [facility] Absolute lymphocyte countOrd ered By: Bryson Merritt on 10-22-2022 Lymphocytes Auto (Unsp spec) [#/Vol] 0.66 10*3/uL 0.83-4.51 [facility] Basophil percentageOrdered B y: Bryson Merritt on 10-22-2022 Basophils/100 WBC (Bld) 0.1 % 0-1 [facility] Bilirubin [Mass/Vol] 10.60 mg/dL 0.20-1.00 [facility] Comment on above: For patients on eltr ombopag therapy, use of Dimension [place] TBIL is not recommended. Chloride [Moles/Vol] 100 mmol/L 98-107 [facility] Eosinophils/100 WBC (Bld) 0.0 % 0-5 [facility] Glucose [Mass/Vol] 275 mg/dL 74-106 [facility] Comment on above: Glucose result great er than or equal to 200 mg/dLsuggests DIABETES MELLITUS per A.D.A. criteria. Neutrophils (Bld) [#/Vol] 9.1 10*3/uL 2.0-7.7 [facility] Neutrophils/100 WBC (Bld) 86.4 % 47-70 [facility] Potassium [Moles/Vol] 3.1 mmol/L 3.5-5.1 [facility] Protein [Mass/Vol] 6.0 g/dL 6.4-8.2 [facility] Comment on above: Moderate Icterus, Re sult may be falsely decreased. Sodium [Moles/Vol] 134 mmol/L 136-145 [facility] WBC (Bld) [#/Vol] 10.5 10*3/uL 4.4-11.0 [facility] Blood erythrocytes count (nu mber/volume)Ordered By: Bryson Merritt on 10-22-2022 RBC (Bld) [#/Vol] 4.52 10*6/uL 4.6-6.2 [facility] Blood hemoglobin measurement (mass/volume)Ordered By: Bryson Merritt on 10-22-2022 Hemoglobin (Bld) [Mass/Vol] 14.1 g/dL 13.0-16.5 [facility] Blood lymphocytes/100 leukoc ytesOrdered By: Bryson Merritt on 10-22-2022 Lymphocytes/100 WBC (Bld) 6.3 % 19-41 [facility] Blood monocytes/100 leukocyt esOrdered By: Bryson Merritt on 10-22-2022 Monocytes/100 WBC (Bld) 6.7 % 0-10 [facility] Blood platelet mean volumeOr dered By: Bryson Merritt on 10-22-2022 Platelet mean volume (Bld) [Entitic vol] 11.9 fL 6.2-12.0 [facility] Determination of erythrocyte mean corpuscular volume (MCV)Ordered By: Bryson Merritt on 10-22-2022 MCV (RBC) [Entitic vol] 90.0 fL 80-94 [facility] Erythrocyte sedimentation ra teOrdered By: Bryson Merritt on 10-22-2022 ESR (Bld) [Velocity] 47 mm/h 0-20 [facility] Glucose Glucometer (BldC) [M ass/Vol]Ordered By: Darrius Rubalcava on 10-22-2022 Glucose [Mass/Vol] 379 mg/dL 74-106 [facility] Comment on above: MANAGEMENT OF PATIEN T CARE PER NURSING PROTOCOL Hematocrit Auto (Bld) [Volum e fraction]Ordered By: Bryson Merritt on 10-22-2022 Hematocrit (Bld) [Volume fraction] 40.7 % 40-54 [facility] Laboratory - Chemistry and C hemistry - challengeOrdered By: Bryson Merritt on 10-22-2022 ALP [Catalytic activity/Vol] 317 U/L 45-117 [facility] ALT [Catalytic activity/Vol] 755 U/L 16-61 [facility] CO2 [Moles/Vol] 29.0 mmol/L 21.0-32.0 [facility] Globulin (S) [Mass/Vol] 3.2 g/dL 2.2-4.2 [facility] Urea nitrogen/Creatinine [Mass ratio] 25.7 mg/mg 10-20 [facility] Laboratory - Hematology and Cell countsOrdered By: Bryson Merritt on 10-22-2022 Erythrocyte distribution width (RBC) [Entitic vol] 41.0 fL 35.1-43.9 [facility] Erythrocyte distribution width (RBC) [Ratio] 12.3 % 11.6-14.6 [facility] Immature granulocytes/100 WBC (Bld) 0.500 % 0.0-0.9 [facility] Comment on above: IG% - Immature Granu locytes (promyelocytes, myelocytes and metamyelocytes) > 1% indicates that a LEFT SHIFT is Present. MCH (RBC) [Entitic mass] 31.2 pg 27.0-32.0 [facility] Nucleated RBC/100 WBC (Bld) [Ratio] 0 % 0-5 [facility] MCHC Auto (RBC) [Mass/Vol]Or dered By: Bryson Merritt on 10-22-2022 MCHC (RBC) [Mass/Vol] 34.6 g/dL 32-36 [facility] No Panel InformationOrdered By: Bryson Merritt on 10-22-2022 Estimated Creatinine Clearance Calc 105.10 ml/min [facility] Estimated GFR (MDRD) Amer 126 mL/min >60 [facility] Comment on above: GFR Calc Estimated GFR (MDRD) Non-Af Amer 104 mL/min >60 [facility] Comment on above: Non- GFR Calc Platelets bldOrdered By: Ronnell Merritt on 10-22-2022 Platelets (Bld) [#/Vol] 182 10*3/uL 150-450 [facility] Serum or plasma C reactive p rotein measurement (mass/volume)Ordered By: Bryson Merritt on 10-22-2022 CRP [Mass/Vol] 52.30 mg/L 0.0-3.0 [facility] Comment on above: C-Reactive Protein ( CRP) provides useful information for thediagnosis, therapy and monitoring of inflammatory processesand associated diseases. For the evaluation of Relative Riskfor Cardiovascular Disease, a High Sensitivity CRP (HSCRP)should be ordered. Serum or plasma albumin rose urement (mass/volume)Ordered By: Bryson Merritt on 10-22-2022 Albumin [Mass/Vol] 2.8 g/dL 3.2-5.0 [facility] Serum or plasma albumin/glob ulin mass ratioOrdered By: Bryson Merritt on 10-22-2022 Albumin/Globulin [Mass ratio] 0.9 {ratio} 0.9-2.4 [facility] Serum or plasma calcium rose urement (mass/volume)Ordered By: Bryson Merritt on 10-22-2022 Calcium [Mass/Vol] 8.9 mg/dL 8.5-10.1 [facility] Serum or plasma creatinine m easurement (mass/volume)Ordered By: Bryson Merritt on 10-22-2022 Creatinine [Mass/Vol] 0.82 mg/dL 0.70-1.30 [facility] Comment on above: Moderate Icterus, Re sult may be falsely decreased.The validity of the calculated GFR & GFRAA in patients over 70 years has not been determined. Clinical correlation is essential. Serum or plasma urea nitroge n measurement (mass/volume)Ordered By: Bryson Merritt on 10-22-2022 Urea nitrogen [Mass/Vol] 21 mg/dL 7-18 [facility] Thin prep Papanicolaou smear with manual screeningOrdered By: Bryson Merritt on 10-22-2022 Thin prep Papanicolaou smear with manual screening 579 U/L 15-37 [facility] Thin prep Papanicolaou smear with manual screening 5 5-15 [facility] Blood manual differential co mment interpretation (narrative result)Ordered By: Bryson Merritt on 10-21-2022 Manual differential comment Blake (Bld) [Interp] SCANNED [facility] Basophil percentageOrdered B y: Ranjith Sarmiento on 10-20-2022 Ammonia (P) [Moles/Vol] 29.0 umol/L 11-32 [facility] Lactate [Moles/Vol] 1.1 mmol/L 0.4-2.0 [facility] LDH [Catalytic activity/Vol] 528 U/L 87-241 [facility] INR in Blood by Coagulation assayOrdered By: Ranjith Friend on 10-20-2022 INR Coag (Bld) [Relative time] 1.3 {INR} [facility] Iron measurement (mass/mass) Ordered By: Ranjith Sarmiento on 10-20-2022 Iron (Unsp spec) [Mass/Mass] 90 ug/dL 65-175 [facility] Laboratory - Chemistry and C hemistry - challengeOrdered By: Ranjith Sarmiento on 10-20-2022 CK [Catalytic activity/Vol] 126 U/L 39-308 [facility] Laboratory - CoagulationOrde red By: Ranjith Sarmiento on 10-20-2022 aPTT Coag (Bld) [Time] 32.1 s 24.1-36.[address] [facility] PT Coag (PPP) [Time] 15.9 s 11.7-14.9 [facility] No Panel InformationOrdered By: Ranjith Sarmiento on 10-20-2022 Total Iron Binding Capacity 375 ug/dL 250-450 [facility] No Panel InformationOrdered By: Bryson Merritt on 10-20-2022 Hepatitis A IgM Antibody Negative Negative [facility] Hepatitis B Core IgM Antibody Negative Negative [facility] Hepatitis C Antibody (EIA) Non-Reactive Non Reactive [facility] Hepatitis C Antibody Comment Comment . [facility] Comment on above: Not infected with HC V unless early or acute infection issuspected (which may be delayed in an immunocompromisedindividual), or other evidence exists to indicate HCVinfection.Performed at: - [place] [id number] Director: Edi Arboleda PhD, Phone: [phone] Serum or plasma ferritin ajith surement (mass/volume)Ordered By: Ranjith Sarmiento on 10-20-2022 Ferritin [Mass/Vol] 78083 ng/mL 26-388 [facility] Comment on above: Moderate Icterus, Re sult may be falsely decreased. Serum or plasma hepatitis B virus surface antigen detection by immunoassayOrdered By: Bryson Merritt on 10-20-2022 HBV surface Ag IA Ql Negative Negative [facility] Serum or plasma iron saturat ion measurement (mass fraction)Ordered By: Ranjith Sarmiento on 10-20-2022 Iron saturation [Mass fraction] 24.0 % 15.0-55.0 [facility] Basophil percentageOrdered B y: Darrius Gini on 10-19-2022 Basophil percentage 2.6 mg/dL 2.5-4.9 [facility] Laboratory - Chemistry and C hemistry - challengeOrdered By: Darrius Rubalcava on 10-19-2022 Lipase [Catalytic activity/Vol] 409 U/L 13-75 [facility] Comment on above: Please note:LIPASE r evised reference range effective 22. New Lipase methodology. Expected to produce lower values than the previous assay method. NEW Reference Range: 13 - 75 U/L Magnesium [Mass/Vol] 1.9 mg/dL 1.6-2.6 [facility] Whole blood hemoglobin A1c/t otal hemoglobin ratio (mass fraction)Ordered By: Bobby Silva on 10-19-2022 HbA1c (Bld) [Mass fraction] 8.3 % 3.8-5.6 [facility] Comment on above: Normal < 5.7 % Predi abetic 5.7 - 6.4 % Diabetic >or= 6.5 % Please note range changes. Absolute lymphocyte countOrd ered By: Noe Barbour on 10-18-2022 Lymphocytes Auto (Unsp spec) [#/Vol] 0.98 10*3/uL 0.83-4.51 [facility] Basophil percentageOrdered B y: Noe Barbour on 10-18-2022 Basophil percentage 0 SEEN /hpf 0-5 [facility] Basophils/100 WBC (Bld) 0.3 % 0-1 [facility] Bilirubin [Mass/Vol] 2.90 mg/dL 0.20-1.00 [facility] Comment on above: For patients on eltr ombopag therapy, use of Dimension [place] TBIL is not recommended. Chloride [Moles/Vol] 102 mmol/L 98-107 [facility] Eosinophils/100 WBC (Bld) 0.8 % 0-5 [facility] Glucose [Mass/Vol] 238 mg/dL 74-106 [facility] Comment on above: Glucose result great er than or equal to 200 mg/dLsuggests DIABETES MELLITUS per A.D.A. criteria. Neutrophils (Bld) [#/Vol] 10.1 10*3/uL 2.0-7.7 [facility] Neutrophils/100 WBC (Bld) 83.9 % 47-70 [facility] Potassium [Moles/Vol] 4.4 mmol/L 3.5-5.1 [facility] Comment on above: Moderate Hemolysis, Result may be falsely increased. Protein [Mass/Vol] 7.5 g/dL 6.4-8.2 [facility] Sodium [Moles/Vol] 137 mmol/L 136-145 [facility] WBC (Bld) [#/Vol] 12.0 10*3/uL 4.4-11.0 [facility] Bilirubin Test strip Ql (U)O rdered By: Noe Barbour on 10-18-2022 Bilirubin Ql (U) Negative Negative [facility] Blood erythrocytes count (nu mber/volume)Ordered By: Noe Barbour on 10-18-2022 RBC (Bld) [#/Vol] 5.05 10*6/uL 4.6-6.2 [facility] Blood hemoglobin measurement (mass/volume)Ordered By: Noe Barbour on 10-18-2022 Hemoglobin (Bld) [Mass/Vol] 15.7 g/dL 13.0-16.5 [facility] Blood lymphocytes/100 leukoc ytesOrdered By: Noe Barbour on 10-18-2022 Lymphocytes/100 WBC (Bld) 8.2 % 19-41 [facility] Blood monocytes/100 leukocyt esOrdered By: Noe Barbour on 10-18-2022 Monocytes/100 WBC (Bld) 6.5 % 0-10 [facility] Blood platelet mean volumeOr dered By: Noe Barbour on 10-18-2022 Platelet mean volume (Bld) [Entitic vol] 10.9 fL 6.2-12.0 [facility] Determination of erythrocyte mean corpuscular volume (MCV)Ordered By: Noe Barbour on 10-18-2022 MCV (RBC) [Entitic vol] 87.5 fL 80-94 [facility] Direct bilirubinOrdered By: Noe Barbour on 10-18-2022 Bilirubin.direct [Mass/Vol] 1.07 mg/dL 0.00-0.30 [facility] Hematocrit Auto (Bld) [Volum e fraction]Ordered By: Noe Barbour on 10-18-2022 Hematocrit (Bld) [Volume fraction] 44.2 % 40-54 [facility] Ketones Test strip Ql (U)Ord ered By: Noe Barbour on 10-18-2022 Ketones Ql (U) Negative Negative [facility] Laboratory - Chemistry and C hemistry - challengeOrdered By: Noe Barbour on 10-18-2022 ALP [Catalytic activity/Vol] 72 U/L 45-117 [facility] ALT [Catalytic activity/Vol] 63 U/L 16-61 [facility] CO2 [Moles/Vol] 29.0 mmol/L 21.0-32.0 [facility] Globulin (S) [Mass/Vol] 3.6 g/dL 2.2-4.2 [facility] Lipase [Catalytic activity/Vol] 1548 U/L 13-75 [facility] Comment on above: Please note:LIPASE r evised reference range effective 22. New Lipase methodology. Expected to produce lower values than the previous assay method. NEW Reference Range: 13 - 75 U/L Urea nitrogen/Creatinine [Mass ratio] 16.2 mg/mg 10-20 [facility] Laboratory - Hematology and Cell countsOrdered By: Noe Barbour on 10-18-2022 Erythrocyte distribution width (RBC) [Entitic vol] 37.2 fL 35.1-43.9 [facility] Erythrocyte distribution width (RBC) [Ratio] 11.8 % 11.6-14.6 [facility] Immature granulocytes/100 WBC (Bld) 0.300 % 0.0-0.9 [facility] Comment on above: IG% - Immature Granu locytes (promyelocytes, myelocytes and metamyelocytes) > 1% indicates that a LEFT SHIFT is Present. MCH (RBC) [Entitic mass] 31.1 pg 27.0-32.0 [facility] Nucleated RBC/100 WBC (Bld) [Ratio] 0 % 0-5 [facility] MCHC Auto (RBC) [Mass/Vol]Or dered By: Neo Barbour on 10-18-2022 MCHC (RBC) [Mass/Vol] 35.5 g/dL 32-36 [facility] Mucus LM Ql (Urine sed)Order ed By: Noe Barbour on 10-18-2022 Mucus Ql (Urine sed) 0 SEEN /hpf [facility] Nitrite Test strip Ql (U)Ord ered By: Noe Barbour on 10-18-2022 Nitrite Ql (U) Negative Negative [facility] No Panel InformationOrdered By: Noe Barbour on 10-18-2022 Estimated Creatinine Clearance Calc 87.05 ml/min [facility] Estimated GFR (MDRD) Amer 101 mL/min >60 [facility] Comment on above: GFR Calc Estimated GFR (MDRD) Non-Af Amer 84 mL/min >60 [facility] Comment on above: Non- GFR Calc Platelets bldOrdered By: Kerwin Barbour on 10-18-2022 Platelets (Bld) [#/Vol] 207 10*3/uL 150-450 [facility] Protein Test strip Ql (U)Ord ered By: Noe Barbour on 10-18-2022 Protein Ql (U) Negative Negative [facility] Serum or plasma albumin rose urement (mass/volume)Ordered By: Noe Barbour on 10-18-2022 Albumin [Mass/Vol] 3.9 g/dL 3.2-5.0 [facility] Serum or plasma calcium rose urement (mass/volume)Ordered By: Noe Barbour on 10-18-2022 Calcium [Mass/Vol] 9.2 mg/dL 8.5-10.1 [facility] Serum or plasma creatinine m easurement (mass/volume)Ordered By: Noe Barbour on 10-18-2022 Creatinine [Mass/Vol] 0.99 mg/dL 0.70-1.30 [facility] Comment on above: The validity of the calculated GFR & GFRAA in patients over 70 years has not been determined. Clinical correlation is essential. Serum or plasma urea nitroge n measurement (mass/volume)Ordered By: Noe Barbour on 10-18-2022 Urea nitrogen [Mass/Vol] 16 mg/dL 7-18 [facility] Squamous epithelial cells de tection in urine sediment by light microscopyOrdered By: Noe Barbour on 10-18-2022 Epithelial cells.squamous LM Ql (Urine sed) 0 SEEN /hpf 0-5 [facility] Thin prep Papanicolaou smear with manual screeningOrdered By: Noe Barbour on 10-18-2022 Thin prep Papanicolaou smear with manual screening 67 U/L 15-37 [facility] Comment on above: Moderate Hemolysis, Result may be falsely increased. Thin prep Papanicolaou smear with manual screening 6 5-15 [facility] Urine blood detectionOrdered By: Noe Barbour on 10-18-2022 RBC Ql (U) 25 /ul Negative [facility] RBC Ql (U) 0 SEEN /hpf 0-5 [facility] Urine clarityOrdered By: Kerwin Barbour on 10-18-2022 Clarity (U) Clear Clear [facility] Urine color determinationOrd ered By: Noe Barbour on 10-18-2022 Color (U) Yellow Yellow [facility] Urine glucose detectionOrder ed By: Noe Barbour on 10-18-2022 Glucose Ql (U) Normal mg/dl Normal [facility] Urine leukocyte esterase det ection by dipstickOrdered By: Noe Barbour on 10-18-2022 Leukocyte esterase Test strip Ql (U) Negative Negative [facility] Urine pHOrdered By: Noe Barbour on 10-18-2022 pH (U) 5.0 [pH] 5.0 - 8.0 [facility] Urine sediment bacteria coun t by microscopy (number/high power field)Ordered By: Noe Barbour on 10-18-2022 Bacteria LM.HPF (Urine sed) [#/Area] 0 /[HPF] None Seen [facility] Urine specific gravity measu rementOrdered By: Noe Barbour on 10-18-2022 Specific gravity (U) [Rel density] 1.015 1.002-1.030 [facility] Urobilinogen Auto test strip Ql (U)Ordered By: Noe Barbour on 10-18-2022 Urobilinogen Ql (U) Normal mg/dl Normal [facility] Vital Signs Date Time Vital Sign Value Performing Clinician Facility 06-22-2024 17:53-0500 Diastolic blood pressure 60 mm[Hg] Molly Kearns MD Work Phone: [facility] 06-22-2024 17:53-0500 Systolic blood pressure 132 mm[Hg] Molly Kearns MD Work Phone: [facility] 06-22-2024 15:50-0500 Body height 177 cm Molly Kearns MD Work Phone: [facility] 06-22-2024 15:50-0500 Body mass index (BMI) [Ratio] 26.58 kg/m2 Molly Kearns MD Work Phone: [facility] 06-22-2024 15:50-0500 Body weight 83.3 kg Molly Kearns MD Work Phone: [facility] 06-22-2024 15:50-0500 Heart rate 81 /min Molly Kearns MD Work Phone: [facility] 06-22-2024 15:50-0500 SaO2% (BldA) [Mass fraction] 99 % Molly Kearns MD Work Phone: [facility] 03-25-2024 10:44-0500 Body height 177 cm Francisco Sanchez MD Work Phone: [facility] 03-25-2024 10:44-0500 Body mass index (BMI) [Ratio] 26.94 kg/m2 Francisco Sanchez MD Work Phone: [facility] 03-25-2024 10:44-0500 Body temperature 97.7 [degF] Francisco Sanchez MD Work Phone: [facility] 03-25-2024 10:44-0500 Body weight 84.4 kg Francisco Sanchez MD Work Phone: [facility] 03-25-2024 10:44-0500 Diastolic blood pressure 73 mm[Hg] Francisco Sanchez MD Work Phone: [facility] 03-25-2024 10:44-0500 Heart rate 87 /min Francisco Sanchez MD Work Phone: [facility] 03-25-2024 10:44-0500 SaO2% (BldA) [Mass fraction] 98 % Francisco Sanchez MD Work Phone: [facility] 03-25-2024 10:44-0500 Systolic blood pressure 157 mm[Hg] Francisco Sanchez MD Work Phone: [facility] 03-12-2024 09:56-0500 Body height 177 cm Mitch Hernandez DO Work Phone: [facility] 03-12-2024 09:56-0500 Body mass index (BMI) [Ratio] 27 kg/m2 Mitch Colvini DO Work Phone: [facility] 03-12-2024 09:56-0500 Body temperature 98.29 [degF] Mitch Colvini DO Work Phone: [facility] 03-12-2024 09:56-0500 Body weight 84.6 kg Mitch Colvini DO Work Phone: [facility] 03-12-2024 09:56-0500 Diastolic blood pressure 75 mm[Hg] Mitch Colvini DO Work Phone: [facility] 03-12-2024 09:56-0500 Heart rate 85 /min Mitch Colvini DO Work Phone: [facility] 03-12-2024 09:56-0500 SaO2% (BldA) [Mass fraction] 98 % Mitch Hernandez DO Work Phone: [facility] 03-12-2024 09:56-0500 Systolic blood pressure 153 mm[Hg] Mitch Hernandez DO Work Phone: [facility] 12-02-2023 17:49-0400 Diastolic blood pressure 64 mm[Hg] Molly Kearns MD Work Phone: [facility] 12-02-2023 17:49-0400 Systolic blood pressure 122 mm[Hg] Molly Kearns MD Work Phone: [facility] 12-02-2023 15:55-0400 Body height 177.8 cm Molly Kearns MD Work Phone: [facility] 12-02-2023 15:55-0400 Body mass index (BMI) [Ratio] 26.57 kg/m2 Molly Kearns MD Work Phone: [facility] 12-02-2023 15:55-0400 Body temperature 98.4 [degF] Molyl Kearns MD Work Phone: [facility] 12-02-2023 15:55-0400 Body weight 84 kg Molly Kearns MD Work Phone: [facility] 12-02-2023 15:55-0400 Heart rate 84 /min Molly Kearns MD Work Phone: [facility] 12-02-2023 15:55-0400 Respiratory rate 16 /min Molly Kearns MD Work Phone: [facility] 12-02-2023 15:55-0400 SaO2% (BldA) [Mass fraction] 98 % Molly Kearns MD Work Phone: [facility] 08-16-2023 14:51-0400 Diastolic blood pressure 60 mm[Hg] Jean Gloria [employer] Work Phone: [facility] 08-16-2023 14:51-0400 Systolic blood pressure 130 mm[Hg] Jean Gloria [employer] Work Phone: [facility] 08-16-2023 14:49-0400 Body mass index (BMI) [Ratio] 25.97 kg/m2 Jean Gloria [employer] Work Phone: [facility] 08-16-2023 14:49-0400 Body weight 82.1 kg Jean Gloria [employer] Work Phone: [facility] 08-16-2023 14:49-0400 Heart rate 77 /min Jean Gloria [employer] Work Phone: [facility] 08-16-2023 14:49-0400 SaO2% (BldA) [Mass fraction] 98 % Jean Gloria [employer] Work Phone: [facility] 04-04-2023 10:30-0500 Body height 177.[address] Molly Kearns Work Phone: [facility] 04-04-2023 10:30-0500 Body mass index (BMI) [Ratio] 26 kg/m2 Dr. Molly Kearns Work Phone: 2(567)883-658009 [place] [address] 04-04-2023 10:30-0500 Body temperature 98.3 [degF] Dr. Molly Kearns Work Phone: 4(312)148-400209 [place] [address] 04-04-2023 10:30-0500 Body weight 82.[address] Molly Kearns Work Phone: 0(702)215-379709 [place] [address] 04-04-2023 10:30-0500 Diastolic blood pressure 71 mm[Hg] Dr. Molly Kearns Work Phone: 0(170)041-267009 [place] [address] 04-04-2023 10:30-0500 Heart rate 78 /min Dr. Molly Kearns Work Phone: 0(655)062-728309 [place] [address] 04-04-2023 10:30-0500 Respiratory rate 18 /min Dr. Molly Kearns Work Phone: 6(514)337-953709 [place] [address] 04-04-2023 10:30-0500 SaO2% (BldA) [Mass fraction] 99 % Dr. Molly Kearns Work Phone: 5(295)727-840009 [place] [address] 04-04-2023 10:30-0500 Systolic blood pressure 162 mm[Hg] Dr. Molly Kearns Work Phone: 2(232)685-848009 [place] [address] 03-18-2023 12:58-0500 Body mass index (BMI) [Ratio] 26.5 kg/m2 Dr. Molly Kearns Work Phone: 3(067)471-386309 [place] [address] 03-18-2023 12:58-0500 Body weight 83.[address] Molly Kearns Work Phone: 7(103)621-789709 [place] [address] 03-18-2023 12:58-0500 Diastolic blood pressure 79 mm[Hg] Dr. Molly Kearns Work Phone: 7(135)020-315709 [place] [address] 03-18-2023 12:58-0500 Heart rate 79 /min Dr. Molly Kearns Work Phone: 7(062)936-345809 [place] [address] 03-18-2023 12:58-0500 SaO2% (BldA) [Mass fraction] 96 % Dr. Molly Kearns Work Phone: [facility] 03-18-2023 12:58-0500 Systolic blood pressure 169 mm[Hg] Dr. Molly Kearns Work Phone: [facility] 10-26-2022 16:32-0400 Diastolic blood pressure 60 mm[Hg] Molly Kearns MD Work Phone: [facility] 10-26-2022 16:32-0400 Systolic blood pressure 138 mm[Hg] Molly Kearns MD Work Phone: [facility] 10-26-2022 15:22-0400 Body temperature 98.6 [degF] Molly Kearns MD Work Phone: [facility] 10-26-2022 15:22-0400 Body weight 82.56 kg Molly Kearns MD Work Phone: [facility] 10-26-2022 15:22-0400 Heart rate 89 /min Molly Kearns MD Work Phone: [facility] 10-26-2022 15:22-0400 Respiratory rate 18 /min Molly Kearns MD Work Phone: [facility] 10-26-2022 15:22-0400 SaO2% (BldA) [Mass fraction] 97 % Molly Kearns MD Work Phone: [facility] 10-23-2022 08:04-0400 Body temperature 98 [degF] Dr. Molly Kearns Work Phone: [facility] 10-23-2022 08:04-0400 Diastolic blood pressure 69 mm[Hg] Dr. Molly Kearns Work Phone: [facility] 10-23-2022 08:04-0400 Heart rate 70 /min Dr. Molly Kearns Work Phone: [facility] 10-23-2022 08:04-0400 Respiratory rate 16 /min Dr. Molly Kearns Work Phone: 8(816)309-607567 [place] [address] 10-23-2022 08:04-0400 SaO2% (BldA) [Mass fraction] 97 % Dr. Molly Kearns Work Phone: 5(899)733-545609 [place] [address] 10-23-2022 08:04-0400 Systolic blood pressure 136 mm[Hg] Dr. Molly Kearns Work Phone: 6(669)086-294409 [place] [address] 10-19-2022 16:00-0400 Inhaled oxygen flow rate 8 L/min Dr. Molly Kearns Work Phone: 9(245)894-838209 [place] [address] 10-19-2022 14:57-0400 Body height 177.[address] Molly Kearns Work Phone: 6(884)534-890609 [place] [address] 10-19-2022 14:57-0400 Body weight 85.[address] Molly Kearns Work Phone: 7(182)239-554209 [place] [address] 10-18-2022 19:55-0400 Body mass index (BMI) [Ratio] 27 kg/m2 Dr. Molly Kearns Work Phone: 2(753)459-011309 [place] [address] 10-18-2022 19:14-0400 Body temperature 97.6 [degF] Dr. Molly Kearns Work Phone: 7(050)082-350409 [place] [address] 10-18-2022 19:14-0400 Diastolic blood pressure 78 mm[Hg] Dr. Molly Kearns Work Phone: 1(287)226-086209 [place] [address] 10-18-2022 19:14-0400 Heart rate 78 /min Dr. Molly Kearns Work Phone: 0(854)125-069909 [place] [address] 10-18-2022 19:14-0400 Respiratory rate 17 /min Dr. Molly Kearns Work Phone: 2(528)210-463309 [place] [address] 10-18-2022 19:14-0400 SaO2% (BldA) [Mass fraction] 98 % Dr. Molly Kearns Work Phone: 1(954)098-867109 [place] [address] 10-18-2022 19:14-0400 Systolic blood pressure 137 mm[Hg] Dr. Molly Kearns Work Phone: [facility] 10-18-2022 13:54-0400 Body height 177.[address] Molly Kearns Work Phone: [facility] 10-18-2022 13:54-0400 Body mass index (BMI) [Ratio] 27.6 kg/m2 Dr. Molly Kearns Work Phone: [facility] 10-18-2022 13:54-0400 Body weight 87.[address] Molly Kearns Work Phone: [facility] 07-04-2022 16:49-0400 Body temperature 97.81 [degF] Molly Kearns MD Work Phone: [facility] 07-04-2022 16:49-0400 Body weight 85.73 kg Molly Kearns MD Work Phone: [facility] 07-04-2022 16:49-0400 Diastolic blood pressure 66 mm[Hg] Molly Kearns MD Work Phone: [facility] 07-04-2022 16:49-0400 Heart rate 82 /min Molly Kearns MD Work Phone: [facility] 07-04-2022 16:49-0400 Respiratory rate 18 /min Molly Kearns MD Work Phone: [facility] 07-04-2022 16:49-0400 SaO2% (BldA) [Mass fraction] 98 % Molly Kearns MD Work Phone: [facility] 07-04-2022 16:49-0400 Systolic blood pressure 132 mm[Hg] Molly Kearns MD Work Phone: [facility] 03-05-2022 17:21-0500 Diastolic blood pressure 60 mm[Hg] Molly Kearns MD Work Phone: [facility] 03-05-2022 17:21-0500 Systolic blood pressure 138 mm[Hg] Molly Kearns MD Work Phone: [facility] 03-05-2022 16:30-0500 Body weight 83.01 kg Molly Kearns MD Work Phone: [facility] 03-05-2022 16:30-0500 Heart rate 76 /min Molly Kearns MD Work Phone: [facility] 03-05-2022 16:30-0500 SaO2% (BldA) [Mass fraction] 97 % Molly Kearns MD Work Phone: [facility] 11-15-2021 15:10-0400 Body weight 86.18 kg Molly Kearns MD Work Phone: [facility] 11-15-2021 15:10-0400 Diastolic blood pressure 62 mm[Hg] Molly Kearns MD Work Phone: [facility] 11-15-2021 15:10-0400 Heart rate 75 /min Molly Kearns MD Work Phone: [facility] 11-15-2021 15:10-0400 SaO2% (BldA) [Mass fraction] 97 % Molly Kearns MD Work Phone: [facility] 11-15-2021 15:10-0400 Systolic blood pressure 126 mm[Hg] Molly Kearns MD Work Phone: [facility] Encounters Encounter Date Encounter Type Care Provider Facility Start: 01-13-2025 End: 01-13-2025 ambulatory MOLLY KEARNS Facility:[facility] Start: 01-13-2025 Encounter for general adult medical examination without abnormal findings MOLLY KEARNS [facility] Start: 01-01-2025 End: 01-01-2025 Nursing evaluation of patient and report Mi Nurse Work Phone: [facility] Comment on above: Need for influenza vaccination (Primary Dx); Encounter for immunization Start: 01-01-2025 End: 01-01-2025 ambulatory MOLLY KEARNS Facility:[facility] Start: 12-28-2024 End: 12-28-2024 Telephone encounter Molly Kearns MD Work Phone: [facility] Comment on above: Patient Question Start: 12-23-2024 End: 12-23-2024 ambulatory [facility] Facility:[facility] Start: 10-22-2024 End: 10-22-2024 Refill Molly Kearns MD Work Phone: [facility] Comment on above: Refill Request Start: 10-12-2024 End: 10-12-2024 Telephone encounter Molly Kearns MD Work Phone: [facility] [place] Comment on above: Insurance Authorization Start: 10-06-2024 End: 10-10-2024 Telephone encounter Molly Kearns MD Work Phone: [facility] Comment on above: Insurance Authorization (For [employer] sensors) Start: 10-02-2024 End: 10-06-2024 Refill Molly Kearns MD Work Phone: [facility] [place] Comment on above: Refill Request Start: 07-24-2024 End: 07-24-2024 Nursing evaluation of patient and report Mi Nurse Work Phone: [facility] Comment on above: Encounter for immunization (Primary Dx) Start: 07-24-2024 End: 07-24-2024 ambulatory [facility] Facility:[facility] Start: 07-02-2024 End: 07-02-2024 Telephone encounter Francisco Sanchez MD Work Phone: Gastroenterology Comment on above: Orders (fibroscan) Start: 06-22-2024 End: 06-22-2024 Office outpatient visit 25 minutes Molly Kearns MD Work Phone: [facility] [place] Comment on above: Type 2 diabetes mellitus without complic ation, without long-term current use of insulin (HCC) (Primary Dx); Essential hypertension; Metabolic dysfunction-associated steatotic liver disease (MASLD); Elevated ferritin; 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); Encounter for long-term current use of medication; Need for vaccination Start: 06-22-2024 End: 06-22-2024 ambulatory MOLLY KEARNS Facility:[facility] Start: 06-05-2024 End: 06-05-2024 ambulatory FRANCISCO SANCHEZ Facility:[facility] Start: 06-01-2024 End: 06-01-2024 Refill Molly Kearns MD Work Phone: [facility] Comment on above: Refill Request Start: 03-25-2024 End: 03-25-2024 Patient encounter procedure Francisco Sanchez MD Work Phone: Gastroenterology Comment on above: Liver disease (Primary Dx) Start: 03-25-2024 End: 03-25-2024 ambulatory FRANCISCO SANCHEZ Facility:[facility] Start: 03-12-2024 End: 03-12-2024 ambulatory Mitch Hernandez DO Work Phone: Hematology/Oncology Comment on above: Hypogammaglobulinemia (HCC) (Primary Dx) Start: 03-12-2024 End: 03-12-2024 Patient encounter procedure Mitch Hernandez DO Work Phone: Hematology/Oncology Start: 03-09-2024 End: 03-09-2024 Telephone encounter Jean Sylvester APRN.CNP Work Phone: [facility] Comment on above: Results Start: 03-06-2024 End: 03-06-2024 ambulatory MOLLY ZAFARMICHOACANO Facility:[facility] Start: 02-27-2024 End: 03-02-2024 Telephone encounter Molly Kearns MD Work Phone: [facility] Comment on above: Patient Question Start: 02-07-2024 End: 02-07-2024 ambulatory Molly Sebastien Zafarmichoacano Facility:[facility] Start: 01-24-2024 End: 01-24-2024 ambulatory [facility] Work Phone: [facility] [place] Start: 01-24-2024 End: 01-24-2024 Patient encounter procedure [facility] Nurse [facility] Work Phone: [facility] Start: 12-25-2023 End: 12-26-2023 Refill Molly Kearns MD Work Phone: [facility] Comment on above: Refill Request Start: 12-02-2023 End: 12-02-2023 Patient encounter status Molly Kearns MD Work Phone: [facility] Work Phone: Start: 12-02-2023 End: 12-02-2023 Periodic preventive med est patient 40-64yrs Molly Kearns MD Work Phone: [facility] Comment on above: Routine medical exam (Primary Dx); Type 2 diabetes mellitus without complication, with long-term current use of insulin (HCC); 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); Essential hypertension; Fatty liver; Encounter for long-term current use of medication Start: 12-02-2023 Telephone encounter Molly Kearns MD Work Phone: [facility] Comment on above: Insurance Authorization Start: 11-26-2023 Refill Molly Kearns MD Work Phone: [facility] Comment on above: Refill Request Start: 11-08-2023 Telephone encounter Molly Kearns MD Work Phone: [facility] [place] Comment on above: Insurance Authorization Start: 11-05-2023 Telephone encounter Molly Kearns MD Work Phone: [facility] Comment on above: Refill Request Start: 09-26-2023 End: 09-26-2023 Patient encounter procedure Francisco Sanchez MD Work Phone: Gastroenterology Comment on above: Liver disease (Primary Dx) Start: 09-26-2023 End: 09-26-2023 ambulatory Hepatology A5 Work Phone: Gastroenterology Start: 09-26-2023 End: 09-26-2023 Patient encounter procedure Hepatology Procedures A5 Work Phone: Gastroenterology Start: 09-24-2023 Telephone encounter Francisco Sanchez MD Work Phone: Gastroenterology Comment on above: Insurance Authorization (For procedure p ricardor to) Start: 08-16-2023 End: 08-16-2023 Patient encounter procedure Jean Sylvester APRNJavierVENEER JOINTER RETURNER Work Phone: Internal Medicine [place] Comment on above: Type 2 diabetes mellitus without complic ation, with long-term current use of insulin (HCC) (Primary Dx); Essential hypertension; 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 Molly Kearns Work Phone: [facility] Work Phone: Start: 04-19-2023 End: 04-19-[address] Molly Kearns Work Phone: [facility] Work Phone: Start: 04-19-2023 End: 04-19-2023 ambulatory Ranjith Sarmiento Facility:[facility] Start: 04-04-2023 End: 04-04-[address] Molly Kearns Work Phone: [facility] Work Phone: Start: 04-04-2023 End: 04-04-2023 ambulatory Molly Kearns [place] Start: 03-22-2023 Telephone encounter Molly Kearns MD Work Phone: [facility] [place] Comment on above: Lab Orders Start: 03-18-2023 End: 03-18-[address] Molly Kearns Work Phone: [facility] Work Phone: Start: 03-18-2023 End: 03-18-2023 ambulatory Molly Kearns Facility:[facility] Start: 01-18-2023 End: 01-18-2023 ambulatory Immunization Clinic Nurse Rajesh Work Phone: [facility] [place] Start: 11-13-2022 Telephone encounter Molly Kearns MD Work Phone: [facility] [place] Comment on above: send copy results of CMP to Dr Lara Start: 10-26-2022 End: 10-26-2022 Office outpatient visit 40 minutes Molly Kearns MD Work Phone: Internal Medicine [place] Comment on above: Type 2 diabetes mellitus without complic ation, with long-term current use of insulin (HCC) (Primary Dx); 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 Molly Kearns Work Phone: [facility] Start: 10-22-2022 Non-patient / Non-visit Dr. Molly Kearns Work Phone: [facility] Start: 10-21-2022 Non-patient / Non-visit Dr. Molly Kearns Work Phone: [facility] Start: 10-21-2022 Non-patient / Non-visit Dr. Molly Kearns Work Phone: [facility] Start: 10-20-2022 Non-patient / Non-visit Dr. Molly Kearns Work Phone: [facility] Start: 10-20-2022 Non-patient / Non-visit Dr. Molly Kearns Work Phone: [facility] Start: 10-19-2022 Non-patient / Non-visit Dr. Molly Kearns Work Phone: [facility] Start: 10-18-2022 Non-patient / Non-visit Dr. Molly Kearns Work Phone: [facility] Start: 10-18-2022 End: 10-23-2022 Evaluation and management of inpatient [facility] Work Phone: Start: 07-07-2022 Refill Molly Kearns MD Work Phone: [facility] [place] Comment on above: Refill Request Start: 07-04-2022 End: 07-04-2022 Office outpatient visit 25 minutes Molly Kearns MD Work Phone: [facility] [place] Comment on above: Type 2 diabetes mellitus without complic ation, without long-term current use of insulin (HCC) (Primary Dx); Elevated ferritin; Essential hypertension; Mixed hyperlipidemia; Encounter for long-term current use of medication Start: 03-05-2022 End: 03-05-2022 Office outpatient visit 25 minutes Molly Kearns MD Work Phone: Internal Medicine [place] Comment on above: Type 2 diabetes mellitus without complic ation, without long-term current use of insulin (HCC) (Primary Dx); Essential hypertension; Elevated ferritin; Mixed hyperlipidemia Start: 11-15-2021 End: 11-15-2021 Office outpatient visit 25 minutes Molly Kearns MD Work Phone: [facility] [place] Comment on above: Elevated ferritin (Primary Dx); Type 2 diabetes mellitus without complication, without long-term current use of insulin (HCC); Essential hypertension; Mixed hyperlipidemia; Kidney stones; NICOLE (nonalcoholic steatohepatitis); Need for vaccination Procedures Date Procedure Procedure Detail Performing Clinician Start: 01-24-2024 PFIZER-BIONTECH COVID-19 VACCINE AGE 12+ YR (COMIRNATY) Molly Kearns MD Work Phone: Start: 08-16-2023 Adult depression screening assessment Molly Kearns MD Work Phone: Start: 01-18-2023 PFIZER-BIONTECH COVID-19 VACCINE (2022- SEASON) AGE 12+ YR Molly Kearns MD Work Phone: Start: 01-18-2023 INFLUENZA VACCINE, AGE 6 MO - 64 YR, QUADRIVALENT (AFLURIA, FLULAVAL, FLUZONE) Molly Kearns MD Work Phone: Start: 10-22-2022 Biopsy/Inj or Needle Placement Dr. Molly Kearns Work Phone: Start: 10-19-[address] Molly Kearns Work Phone: Start: 10-19-2022 Total cholecystectomy and exploration of common bile duct Dr. Molly Kearns Work Phone: Start: 10-18-2022 US scan of gallbladder Dr. Molly Kearns Work Phone: Start: 10-18-2022 Computed tomography of abdomen and pelvis with intravenous contrast Dr. Molly Kearns Work Phone: Start: 05-21-2018 Laboratory test result abnormal 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 Molly Kearns MD Work Phone: History of cholecystectomy Status post laparoscopic cholecystectomy Dr. Molly Kearns Work Phone: Plan of Treatment Date Care Activity Detail Author Start: 04-01-2033 Urine microalbumin profile DTaP,Tdap,Td Vaccine (3 - Td or Tdap) [facility] Start: 12-01-2028 Prostate specific antigen measurement Prostate Cancer Screening Discussion [facility] Start: 12-23-2025 Hepatitis B surface antibody level LDL Cholesterol [facility] Start: 06-25-2025 End: 06-25-2025 Patient encounter procedure 06/25/2025 4:00 PM EST Office Visit Internal Medicine [facility] [address] [facility] [place] [address] Molly Kearns MD [address] [facility] [place] [address] 6 mo f/u Internal Medicine [place] Comment on above: 6 mo f/u Start: 06-22-2025 Annual PCP Team Chronic Disease Visit Annual PCP Team Chronic Disease Visit [facility] Start: 06-22-2025 Hemoglobin A1c measurement HbA1C [facility] Start: 05-27-2025 Glaucoma screening Dilated Retinal Exam [facility] Start: 03-06-2025 Hepatitis B screening Urine Albumin:Creatinine Ratio [facility] Start: 01-19-2025 End: 01-19-2025 Patient encounter procedure 01/19/2025 2:40 PM EDT Office Visit Internal Medicine [facility] [address] [place] [address] Bety Bajwa APRN.BAGGAGEMASTER [address] [place] [address] Yearly follow up [facility] [place] Comment on above: Yearly follow up Start: 01-01-2025 End: 01-01-2025 Nursing evaluation of patient and report 01/01/2025 3:00 PM EDT Nurse Visit [facility] [place] [address] [place] [address] Nurse, Pr [address] [facility] [place] [address] 3rd Hep/?flu & COVID Booster [facility] [place] Comment on above: 3rd Hep/?flu & COVID Booster Start: 12-28-2024 End: 12-28-2024 Patient encounter procedure 12/28/2024 4:20 PM EDT Office Visit [facility] [place] [address] [facility] [place] [address] Molly Kearns MD [address] [place] [place] [address] Yearly follow up Internal Medicine [facility] Comment on above: Yearly follow up Start: 12-24-2024 Hepatitis B Vaccine (3 of 3 - Hep B Twinrix 3-dose series) Hepatitis B Vaccine (3 of 3 - Hep B Twinrix 3-dose series) [facility] Start: 12-21-2024 Influenza vaccination Influenza Vaccine (#1) [facility] Start: 12-19-2024 Hepatitis a & b vaccine hepa-hepb adult im HEP A-HEP B VACCINE (TWINRIX) Immunization/Injection Routine Need for vaccination Expected: 12/19/2024 (Approximate) [facility] Comment on above: Expected: 12/19/2024 (Approximate) Start: 12-01-2024 Annual PCP Team Chronic Disease Visit Annual PCP Team Chronic Disease Visit [facility] Start: 12-01-2024 BP Controlled (<130/80) BP Controlled (<130/80) [facility] Start: 11-22-2024 End: 02-21-2025 CBC panel - Blood by Automated count COMPLETE BLOOD COUNT Lab Routine Essential hypertension Expected: 11/22/2024 (Approximate), Expires: 02/21/2025 [facility] Comment on above: Expected: 11/22/2024 (Approximate), Expi res: 02/21/2025 Start: 11-22-2024 End: 02-21-2025 Comprehensive metabolic 2000 panel - Serum or Plasma COMPREHENSIVE METABOLIC PANEL Lab Routine Type 2 diabetes mellitus without complication, without long-term current use of insulin (HCC) Essential hypertension Expected: 11/22/2024 (Approximate), Expires: 02/21/2025 [facility] Comment on above: Expected: 11/22/2024 (Approximate), Expi res: 02/21/2025 Start: 11-22-2024 End: 02-21-2025 Ferritin [Mass/volume] in Serum or Plasma FERRITIN Lab Routine Elevated ferritin Expected: 11/22/2024 (Approximate), Expires: 02/21/2025 [facility] Comment on above: Expected: 11/22/2024 (Approximate), Expi res: 02/21/2025 Start: 11-22-2024 End: 02-21-2025 Hemoglobin A1c in Blood HEMOGLOBIN A1C Lab Routine Type 2 diabetes mellitus without complication, without long-term current use of insulin (HCC) Expected: 11/22/2024 (Approximate), Expires: 02/21/2025 [facility] Comment on above: Expected: 11/22/2024 (Approximate), Expi res: 02/21/2025 Start: 11-22-2024 End: 02-21-2025 Iron and Iron binding capacity panel - Serum or Plasma IRON AND TIBC Lab Routine Elevated ferritin Expected: 11/22/2024 (Approximate), Expires: 02/21/2025 [facility] Comment on above: Expected: 11/22/2024 (Approximate), Expi res: 02/21/2025 Start: 11-22-2024 End: 02-21-2025 Lipid 1996 panel - Serum or Plasma LIPID PANEL BASIC Lab Routine Type 2 diabetes mellitus without complication, without long-term current use of insulin (HCC) Expected: 11/22/2024 (Approximate), Expires: 02/21/2025 [facility] Comment on above: Expected: 11/22/2024 (Approximate), Expi res: 02/21/2025 Start: 09-03-2024 Hemoglobin A1c measurement HbA1C [facility] Start: 08-15-2024 Annual PCP Team Chronic Disease Visit Annual PCP Team Chronic Disease Visit [facility] Start: 08-15-2024 Anxiety Screening Anxiety Screening [facility] Start: 08-15-2024 Depression Screening Depression Screening [facility] Start: 08-15-2024 Diabetic foot examination Diabetic Foot Exam [facility] Start: 08-08-2024 Hepatitis B surface antibody level LDL Cholesterol [facility] Start: 07-24-2024 End: 07-24-2024 Nursing evaluation of patient and report 07/24/2024 3:45 PM EDT Nurse Visit Family Medicine [facility] [address] [place] [address] [place], [place] [address] [place] [address] [place] [address] hep b Family Medicine [facility] Comment on above: hep b Start: 07-23-2024 COLOGUARD (FIT-DNA) COLOGUARD (FIT-DNA) [facility] Start: 07-23-2024 COLORECTAL CANCER SCREENING COLORECTAL CANCER SCREENING [facility] Start: 07-23-2024 Hepatitis a & b vaccine hepa-hepb adult im HEP A-HEP B VACCINE (TWINRIX) Immunization/Injection Routine Need for vaccination Expected: 07/23/2024 (Approximate) [facility] Work Phone: Comment on above: Expected: 07/23/2024 (Approximate) Start: 07-23-2024 End: 07-23-2024 Orders Only 07/23/2024 Orders Only [facility] [place] [address] [place] [address] Molly Kearns MD [address] [facility] [place] [address] Need for vaccination Internal Medicine [place] Comment on above: Need for vaccination Start: 07-23-2024 Screening for malignant neoplasm of colon [facility] Start: 07-20-2024 Hepatitis B Vaccine (2 of 3 - Hep B Twinrix 3-dose series) Hepatitis B Vaccine (2 of 3 - Hep B Twinrix 3-dose series) [facility] Start: 06-22-2024 End: 06-22-2024 Patient encounter procedure 06/22/2024 4:00 PM EST Office Visit Internal Medicine [facility] [address] [place] [address] Molly Kearns MD [address] [facility] [place] [address] 6 month follow up Internal Medicine [place] Comment on above: 6 month follow up Start: 06-05-2024 End: 06-05-2024 ambulatory 06/05/2024 7:45 AM EST Results Only [facility] [address] [place] [address] Routine [facility] Comment on above: Routine Start: 05-29-2024 Hemoglobin A1c measurement HbA1C [facility] Start: 05-08-2024 Glaucoma screening Dilated Retinal Exam [facility] Start: 04-01-2024 Annual PCP Team Chronic Disease Visit Annual PCP Team Chronic Disease Visit [facility] Start: 03-25-2024 Hepatitis B surface antibody level LDL Cholesterol [facility] Start: 03-25-2024 End: 03-25-2024 Patient encounter procedure 03/25/2024 10:55 AM EST Office Visit Gastroenterology [address] [address] Francisco Sanchez MD [address] [place] [address] 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] Gastroenterology Comment on above: Autoimmune hepatitis treated with steroi ds (HCC) [K75.4] Start: 03-12-2024 End: 03-12-2024 ambulatory 03/12/2024 10:10 AM EST Visit (SP) Office Hematology/Oncology [address] [place] [id number] Mitch Hernandez DO [address] [place] [id number] 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 [address] [place] [address] Labs for Type 2 diabetes mellitus without complication, with long-term current use of insulin (HCC) [E11.9, Z79.4] [facility] Comment on above: Labs for Type 2 diabetes mellitus withou t complication, with long-term current use of insulin (HCC) [E11.9, Z79.4] Start: 03-02-2024 End: 06-01-2024 IMMUNOGLOBULINS,IGG,IG A,IGM IMMUNOGLOBULINS,IGG,IGA,IGM Lab Routine Hypogammaglobulinemia (HCC) Expected: 03/02/2024, Expires: 06/01/2024 [facility] Work Phone: Comment on above: Expected: 03/02/2024, Expires: Start: 02-26-2024 End: 03-27-2024 Hepatic function 2000 panel - Serum or Plasma HEPATIC FUNCTION PNL Lab Routine Liver disease Expected: 02/26/2024, Expires: 03/27/2024 [facility] Work Phone: Comment on above: Expected: 02/26/2024, Expires: Start: 02-21-2024 End: 05-22-2024 Microalbumin/Creatinin e [Mass Ratio] in Urine ALBUMIN/CREATININE RATIO, URINE Lab Routine Type 2 diabetes mellitus without complication, with long-term current use of insulin (HCC) Expected: 02/21/2024 (Approximate), Expires: 05/22/2024 [facility] Work Phone: Comment on above: Expected: 02/21/2024 (Approximate), Expi res: 05/22/2024 Start: 02-08-2024 Hemoglobin A1c measurement HbA1C [facility] Start: 12-22-2023 Covid-19 Vaccine ( season) Covid-19 Vaccine () [facility] Start: 12-22-2023 Influenza vaccination Influenza Vaccine (#1) [facility] Start: 12-02-2023 End: 12-02-2023 Patient encounter procedure 12/02/2023 3:40 PM EDT Office Visit Internal Medicine [place] [address] [place] [address] Molly Kearns MD [address] [place] [address] follow up Internal Medicine [place] Comment on above: follow up Start: 11-27-2023 End: 11-27-2023 ambulatory 11/27/2023 7:30 AM EDT Results Only [place] [facility] [address] [place] [address] [place] [facility] Start: 11-15-2023 Hepatitis B screening URINE ALBUMIN:CREATININE RATIO [facility] Start: 11-15-2023 Hepatitis B surface antibody level LDL CHOLESTEROL [facility] Start: 11-03-2023 ANNUAL PCP TEAM CHRONIC DISEASE VISIT ANNUAL PCP TEAM CHRONIC DISEASE VISIT [facility] Start: 10-27-2023 ANNUAL PCP TEAM CHRONIC DISEASE VISIT ANNUAL PCP TEAM CHRONIC DISEASE VISIT [facility] Start: 09-26-2023 End: 09-26-2023 Patient encounter procedure 09/26/2023 10:30 AM EDT Office Visit Gastroenterology [address] [address] Francisco Sanchez MD [address] [place] [address] autoimmune hepititis Gastroenterology Comment on above: autoimmune hepititis Start: 09-26-2023 End: 09-26-2023 ambulatory 09/26/2023 9:20 AM EDT Procedure Gastroenterology [address] [address] fibroscan Gastroenterology Comment on above: fibroscan Start: 09-24-2023 Hemoglobin A1c measurement HbA1C [facility] Start: 07-05-2023 ANNUAL PCP TEAM CHRONIC DISEASE VISIT ANNUAL PCP TEAM CHRONIC DISEASE VISIT [facility] Start: 06-30-2023 Hepatitis B surface antibody level LDL CHOLESTEROL [facility] Start: 05-17-2023 Hemoglobin A1c/Hemoglobin.total in Blood HBA1C [facility] Start: 04-30-2023 Hepatitis C antibody, confirmatory test DILATED RETINAL EXAM [facility] Start: 04-22-2023 Behavioral Health Screening Behavioral Health Screening [facility] Start: 04-22-2023 Depression Assessment Depression Assessment [facility] Start: 03-19-2023 Patient referral [facility] Work Phone: Start: 03-05-2023 ANNUAL PCP TEAM CHRONIC DISEASE VISIT ANNUAL PCP TEAM CHRONIC DISEASE VISIT [facility] Start: 03-02-2023 Hepatitis B surface antibody level LDL CHOLESTEROL [facility] Start: 12-30-2022 Hemoglobin A1c/Hemoglobin.total in Blood HBA1C [facility] Start: 12-21-2022 Influenza vaccination INFLUENZA (#1) [facility] Start: 11-15-2022 ANNUAL PCP TEAM CHRONIC DISEASE VISIT ANNUAL PCP TEAM CHRONIC DISEASE VISIT [facility] Start: 11-15-2022 BP CONTROLLED (<130/80) BP CONTROLLED (<130/80) [facility] Start: 11-15-2022 HEPATITIS B (1 of 3 - 3-dose series) HEPATITIS B (1 of 3 - 3-dose series) [facility] Comment on above: Postponed from 1966 (Declined at t his time) Start: 11-15-2022 PNEUMOCOCCAL (2 - PCV) PNEUMOCOCCAL (2 - PCV) [facility] Comment on above: Postponed from 06/13/2012 (Declined at t his time) Start: 11-07-2022 Hepatitis B screening URINE ALBUMIN:CREATININE RATIO [facility] Start: 11-07-2022 Hepatitis B surface antibody level LDL CHOLESTEROL [facility] Start: 10-23-2022 Patient discharge [facility] Start: 10-22-2022 Consultation [facility] Start: 10-22-2022 Procedure [facility] Start: 10-22-2022 Oxygen therapy [facility] Start: 10-22-2022 Vital signs measurements [facility] Start: 10-22-2022 Dietary regime [facility] Start: 10-22-2022 [facility] Start: 10-22-2022 [facility] Start: 10-21-2022 Procedure [facility] Start: 10-20-2022 Procedure [facility] Start: 10-20-2022 Serum immunofixation [facility] Start: 10-20-2022 [facility] Start: 10-20-2022 End: 12-20-2022 ALBUMIN/CREAT RATIO RND UR ALBUMIN/CREAT RATIO RND UR Lab Routine Type 2 diabetes mellitus without complication, without long-term current use of insulin (HCC) Encounter for long-term current use of medication Expected: 10/20/2022 (Approximate), Expires: 12/20/2022 [facility] Work Phone: Comment on above: Expected: 10/20/2022 (Approximate), Expi res: 12/20/2022 Start: 10-20-2022 End: 12-20-2022 CBC panel - Blood by Automated count CBC Lab Routine Essential hypertension Encounter for long-term current use of medication Expected: 10/20/2022 (Approximate), Expires: 12/20/2022 [facility] Work Phone: Comment on above: Expected: 10/20/2022 (Approximate), Expi res: 12/20/2022 Start: 10-20-2022 End: 12-20-2022 Cobalamin (Vitamin B12) [Mass/volume] in Serum or Plasma VITAMIN B12 BLOOD Lab Routine Encounter for long-term current use of medication Expected: 10/20/2022 (Approximate), Expires: 12/20/2022 [facility] Work Phone: Comment on above: Expected: 10/20/2022 (Approximate), Expi res: 12/20/2022 Start: 10-20-2022 End: 12-20-2022 Comprehensive metabolic 2000 panel - Serum or Plasma COMP METABOLIC PANEL Lab Routine Type 2 diabetes mellitus without complication, without long-term current use of insulin (HCC) Essential hypertension Encounter for long-term current use of medication Expected: 10/20/2022 (Approximate), Expires: 12/20/2022 [facility] Work Phone: Comment on above: Expected: 10/20/2022 (Approximate), Expi res: 12/20/2022 Start: 10-20-2022 End: 12-20-2022 Ferritin [Mass/volume] in Serum or Plasma FERRITIN BLD Lab Routine Elevated ferritin Encounter for long-term current use of medication Expected: 10/20/2022 (Approximate), Expires: 12/20/2022 [facility] Work Phone: Comment on above: Expected: 10/20/2022 (Approximate), Expi res: 12/20/2022 Start: 10-20-2022 End: 12-20-2022 Folate [Mass/volume] in Serum or Plasma FOLATE SERUM Lab Routine Encounter for long-term current use of medication Expected: 10/20/2022 (Approximate), Expires: 12/20/2022 [facility] Work Phone: Comment on above: Expected: 10/20/2022 (Approximate), Expi res: 12/20/2022 Start: 10-20-2022 End: 12-20-2022 Hemoglobin A1c in Blood HGB A1C Lab Routine Type 2 diabetes mellitus without complication, without long-term current use of insulin (HCC) Encounter for long-term current use of medication Expected: 10/20/2022 (Approximate), Expires: 12/20/2022 [facility] Work Phone: Comment on above: Expected: 10/20/2022 (Approximate), Expi res: 12/20/2022 Start: 10-20-2022 End: 12-20-2022 Iron and Iron binding capacity panel - Serum or Plasma IRON + TIBC Lab Routine Elevated ferritin Encounter for long-term current use of medication Expected: 10/20/2022 (Approximate), Expires: 12/20/2022 [facility] Work Phone: Comment on above: Expected: 10/20/2022 (Approximate), Expi res: 12/20/2022 Start: 10-20-2022 End: 12-20-2022 Lipid 1996 panel - Serum or Plasma LIPID PANEL BASIC Lab Routine Mixed hyperlipidemia Encounter for long-term current use of medication Expected: 10/20/2022 (Approximate), Expires: 12/20/2022 [facility] Work Phone: Comment on above: Expected: 10/20/2022 (Approximate), Expi res: 12/20/2022 Start: 10-19-2022 [facility] Start: 10-19-2022 Fluoroscopic guidance O.R. Fluoro for C-Arm [facility] Start: 10-19-2022 RF Less than 1 hour [facility] Start: 10-19-2022 Referral to gastroenterology service [facility] Start: 10-19-2022 Lipase measurement [facility] Start: 10-19-2022 [facility] Start: 10-18-2022 End: 10-18-2022 Following clinical pathway protocol [facility] Start: 10-18-2022 Application of intermittent pneumatic compression device [facility] Start: 10-18-2022 Admission procedure [facility] Start: 10-18-2022 [facility] Start: 08-30-2022 Hemoglobin A1c/Hemoglobin.total in Blood HBA1C [facility] Start: 05-18-2022 End: 07-18-2022 CBC panel - Blood by Automated count CBC Lab Routine Essential hypertension Expected: 05/18/2022 (Approximate), Expires: 07/18/2022 [facility] Work Phone: Comment on above: Expected: 05/18/2022 (Approximate), Expi res: 07/18/2022 Start: 05-18-2022 End: 07-18-2022 Comprehensive metabolic 2000 panel - Serum or Plasma COMP METABOLIC PANEL Lab Routine Type 2 diabetes mellitus without complication, without long-term current use of insulin (HCC) Essential hypertension NICOLE (nonalcoholic steatohepatitis) Expected: 05/18/2022 (Approximate), Expires: 07/18/2022 [facility] Work Phone: Comment on above: Expected: 05/18/2022 (Approximate), Expi res: 07/18/2022 Start: 05-18-2022 End: 07-18-2022 Ferritin [Mass/volume] in Serum or Plasma FERRITIN BLD Lab Routine Elevated ferritin Expected: 05/18/2022 (Approximate), Expires: 07/18/2022 [facility] Work Phone: Comment on above: Expected: 05/18/2022 (Approximate), Expi res: 07/18/2022 Start: 05-18-2022 End: 07-18-2022 Hemoglobin A1c in Blood HGB A1C Lab Routine Type 2 diabetes mellitus without complication, without long-term current use of insulin (HCC) Expected: 05/18/2022 (Approximate), Expires: 07/18/2022 [facility] Work Phone: Comment on above: Expected: 05/18/2022 (Approximate), Expi res: 07/18/2022 Start: 05-18-2022 End: 07-18-2022 Iron and Iron binding capacity panel - Serum or Plasma IRON + TIBC Lab Routine Elevated ferritin Expected: 05/18/2022 (Approximate), Expires: 07/18/2022 [facility] Work Phone: Comment on above: Expected: 05/18/2022 (Approximate), Expi res: 07/18/2022 Start: 05-18-2022 End: 07-18-2022 Lipid 1996 panel - Serum or Plasma LIPID PANEL BASIC Lab Routine Mixed hyperlipidemia Expected: 05/18/2022 (Approximate), Expires: 07/18/2022 [facility] Work Phone: Comment on above: Expected: 05/18/2022 (Approximate), Expi res: 07/18/2022 Start: 05-10-2022 Hemoglobin A1c/Hemoglobin.total in Blood HBA1C [facility] Start: 04-28-2022 Hepatitis C antibody, confirmatory test DILATED RETINAL EXAM [facility] Start: 04-01-2022 Urine microalbumin profile [facility] Start: 01-14-2022 Hzv zoster vacc recombinant adjuvanted im njx ZOSTER VACC RECOMBINANT,IM Immunization/Injection Routine Need for vaccination Expected: 01/14/2022 (Approximate) [facility] Work Phone: Comment on above: Expected: 01/14/2022 (Approximate) Start: 01-10-2022 SHINGRIX VACCINE (2 of 2) SHINGRIX VACCINE (2 of 2) [facility] Start: 12-21-2021 Influenza vaccination INFLUENZA (#1) [facility] Start: 2021 PROSTATE CANCER SCREENING DISCUSSION PROSTATE CANCER SCREENING DISCUSSION [facility] Start: 2021 Prostate specific antigen measurement Prostate Cancer Screening Discussion [facility] Start: 10-22-2021 COVID-19 VACCINE (5 - Booster for Moderna series) COVID-19 VACCINE (5 - Booster for Moderna series) [facility] Start: 04-22-2021 DEPRESSION ASSESSMENT DEPRESSION ASSESSMENT [facility] Start: 05-19-2020 3 comp foot exam completed DIABETIC FOOT EXAM [facility] Start: 05-19-2020 Diabetic foot examination Diabetic Foot Exam [facility] Start: 06-01-2019 FECAL OCCULT BLOOD FECAL OCCULT BLOOD [facility] Start: 06-01-2019 Screening for malignant neoplasm of colon Fecal Occult Blood [facility] Start: 06-13-2012 PNEUMOCOCCAL (2 - PCV) PNEUMOCOCCAL (2 - PCV) [facility] Start: 06-13-2012 Pneumococcal vaccination [facility] Start: 11-12-2011 Colonoscopy COLONOSCOPY [facility] Start: 11-12-[address] COLONOGRAPHY [facility] Start: 11-12-2011 Screening for malignant neoplasm of colon [facility] Start: 11-12-2011 SIGMOIDOSCOPY SIGMOIDOSCOPY [facility] Start: 1985 Hepatitis B Vaccine (1 of 3 - 19+ 3-dose series) Hepatitis B Vaccine (1 of 3 - 19+ 3-dose series) [facility] Start: 1984 BP CONTROLLED (<130/80) BP CONTROLLED (<130/80) [facility] Start: 1966 HEPATITIS B (1 of 3 - 3-dose series) HEPATITIS B (1 of 3 - 3-dose series) [facility] Start: 1966 Hepatitis B Vaccine (1 of 3 - 3-dose series) Hepatitis B Vaccine (1 of 3 - 3-dose series) [facility] Alanine aminotransferase [Enzymatic activity/volume] in Serum or Plasma [facility] Albumin [Mass/volume ] in Serum or Plasma [facility] Albumin [Moles/volum e] in Serum or Plasma [facility] Albumin/Globulin ratio [facility] Alkaline phosphatase [Enzymatic activity/volume] in Serum or Plasma [facility] Anion gap measurement [facility] Antibody to lupus La protein measurement [facility] Antibody to SS-A measurement [facility] Aspartate aminotransferase [Enzymatic activity/volume] in Serum or Plasma [facility] Bilirubin, total measurement [facility] BUN/Creatinine ratio [facility] Calcium [Mass/volume ] in Serum or Plasma [facility] Carbon dioxide, tota l [Moles/volume] in Serum or Plasma [facility] End: 03-21-2024 CBC panel - Blood by Automated count CBC Lab Routine Encounter for long-term current use of medication Essential hypertension Every 3 months for 4 Occurrences starting 03/22/2023 until 03/21/2024 [facility] Work Phone: Comment on above: Every 3 months for 4 Occurrences startin g 03/22/2023 until 03/21/2024 Centromere protein B Ab [Units/volume] in Serum [facility] Chloride [Moles/volume] in Serum or Plasma [facility] Chromatin Ab [Units/volume] in Serum or Plasma [facility] End: 03-21-2024 Comprehensive metabolic 2000 panel - Serum or Plasma COMP METABOLIC PANEL Lab Routine Encounter for long-term current use of medication Type 2 diabetes mellitus with hyperglycemia, with long-term current use of insulin (HCC) Essential hypertension Every 3 months for 4 Occurrences starting 03/22/2023 until 03/21/2024 [facility] Work Phone: Comment on above: Every 3 months for 4 Occurrences startin g 03/22/2023 until 03/21/2024 Creatinine [Moles/volume] in Serum or Plasma [facility] Cytomegalovirus IgG antibody measurement [facility] Cytomegalovirus IgM antibody assay [facility] DNA double strand Ab [Units/volume] in Serum [facility] Electrophoresis: [id number] [facility] Electrophoresis: jeffrey ma globulin [facility] Cassandra Smith virus capsid IgG Ab [Units/volume] in Serum [facility] Cassandra Smith virus capsid IgM Ab [Units/volume] in Serum [facility] Cassandra Smith virus nuclear IgG Ab [Units/volume] in Cerebral spinal fluid [facility] Cassandra-Smith virus serologic test [facility] End: 03-21-2024 Ferritin [Mass/volume] in Serum or Plasma FERRITIN BLD Lab Routine Elevated ferritin Encounter for long-term current use of medication Every 3 months for 4 Occurrences starting 03/22/2023 until 03/21/2024 [facility] Work Phone: Comment on above: Every 3 months for 4 Occurrences startin g 03/22/2023 until 03/21/2024 Globulin measurement [facility] Glucose [Mass/volume ] in Serum or Plasma [facility] Hematocrit [Volume Fraction] of Blood [facility] Hemoglobin [Mass/volume] in Blood [facility] End: 03-21-2024 Hemoglobin A1c in Blood HGB A1C Lab Routine Encounter for long-term current use of medication Type 2 diabetes mellitus with hyperglycemia, with long-term current use of insulin (HCC) Every 3 months for 4 Occurrences starting 03/22/2023 until 03/21/2024 [facility] Work Phone: Comment on above: Every 3 months for 4 Occurrences startin g 03/22/2023 until 03/21/2024 IgA [Mass/volume] in Serum or Plasma [facility] IgG [Mass/volume] in Serum or Plasma [facility] IgG subclass 1 [Mass/volume] in Serum [facility] IgG subclass 2 [Mass/volume] in Serum [facility] IgG subclass 3 [Mass/volume] in Serum [facility] IgG subclass 4 [Mass/volume] in Serum [facility] IgM [Mass/volume] in Serum or Plasma [facility] Imaging of liver [facility] End: 03-21-2024 Iron and Iron binding capacity panel - Serum or Plasma IRON + TIBC Lab Routine Elevated ferritin Encounter for long-term current use of medication Every 3 months for 4 Occurrences starting 03/22/2023 until 03/21/2024 [facility] Work Phone: Comment on above: Every 3 months for 4 Occurrences startin g 03/22/2023 until 03/21/2024 Ligia-1 extractable nuclear Ab [Units/volume] in Serum [facility] Leukocytes [#/volume ] in Blood [facility] End: 03-21-2024 Lipid 1996 panel - Serum or Plasma LIPID PANEL BASIC Lab Routine Encounter for long-term current use of medication Mixed hyperlipidemia Every 3 months for 4 Occurrences starting 03/22/2023 until 03/21/2024 [facility] Work Phone: Comment on above: Every 3 months for 4 Occurrences startin g 03/22/2023 until 03/21/2024 Magnesium [Mass/volume] in Serum or Plasma [facility] Mean corpuscular hemoglobin concentration determination [facility] Mean corpuscular hemoglobin determination [facility] Measurement of renal function [facility] Mitochondria Ab [Presence] in Serum [facility] Neutrophil count [facility] Neutrophil cytoplasm ic Ab.classic [Units/volume] in Serum [facility] Neutrophil percent differential count [facility] P-ANCA measurement [facility] Parvovirus B19 IgG A b [Units/volume] in Serum by Immunoassay [facility] Parvovirus B19 IgM A b [Units/volume] in Serum by Immunoassay [facility] Patient Education ISRAEL RN Biopsy Liver Dc ISRAEL RN Procedural Sedation [facility] Work Phone: Patient referral [facility] Work Phone: Platelets [#/volume] in Blood [facility] Potassium [Moles/volume] in Serum or Plasma [facility] Procedure [facility] Protein electrophoresis panel - Serum or Plasma [facility] Red blood cell count [facility] Red cell distributio n width determination [facility] SCL-70 extractable nuclear Ab [Units/volume] in Serum by Immunoassay [facility] Serum protein electrophoresis [facility] Cline extractable nuclear Ab [Presence] in Serum [facility] Smooth muscle Ab [Presence] in Serum [facility] Sodium [Moles/volume ] in Serum or Plasma [facility] Total protein measurement [facility] Transferrin [Mass/volume] in Serum or Plasma [facility] Urea nitrogen [Mass/volume] in Serum or Plasma [facility] Immunizations Immunization Date Immunization Notes Care Provider Fa [facility] 01-01-2025 hepatitis A and hepatitis B vaccine Pr Nurse Work Phone: [facility] 01-01-2025 influenza, seasonal, injectable, preservative free Mi Nurse Work Phone: [facility] 07-24-2024 hepatitis A and hepatitis B vaccine Pr Nurse Work Phone: [facility] 06-22-2024 hepatitis A and hepatitis B vaccine Francisco Sanchez MD Work Phone: [facility] 01-24-2024 COVID-19 vaccine, ag e 12+ yr (SynapDx-[employer] [facility]) Immunization [place] Work Phone: [facility] 01-24-2024 influenza, seasonal, injectable Immunization [place] Work Phone: [facility] 01-24-2024 influenza virus vaccine, unspecified formulation Molly Kearns MD Work Phone: [facility] 08-16-2023 pneumococcal Conjuga te, unspecified formulation Jean Sylvester APRN.[employer] Work Phone: [facility] Work Phone: 08-16-2023 pneumococcal conjuga te (PCV20) vaccine, 20 valent (PREVNAR 20) Jean Sylvester APRN.[employer] Work Phone: [facility] 04-01-2023 tetanus toxoid, redu denisse diphtheria toxoid, and acellular pertussis vaccine, adsorbed Molly Kearns MD Work Phone: [facility] Work Phone: 01-18-2023 COVID-19 vaccine, ag e 12+ yr, season (PFIZER-[employer]) Immunization Rajesh Work Phone: [facility] Work Phone: 01-18-2023 influenza, injectabl e, quadrivalent, contains preservative Immunization Rajesh Work Phone: [facility] Work Phone: 01-18-2023 influenza virus vaccine, unspecified formulation Molly Kearns MD Work Phone: [facility] 03-05-2022 zoster vaccine recombinant Molly Kearns MD Work Phone: [facility] 01-28-2022 COVID-19 booster vaccine, age 12+ yr, bivalent (MODERNA) Molly Kearns MD Work Phone: [facility] Work Phone: 01-28-2022 Influenza, injectabl e, Madin [place] Canine Kidney, preservative free, quadrivalent Molly Kearns MD Work Phone: [facility] 01-28-2022 Seasonal, trivalent, recombinant, injectable influenza vaccine, preservative free Molly Kearns MD Work Phone: [facility] Work Phone: 11-15-2021 zoster vaccine recombinant Molly Kearns MD Work Phone: [facility] 08-27-2021 COVID-19 original vaccine, full dose, monovalent (MAYE) Molly Kearns MD Work Phone: [facility] 03-19-2021 COVID-19 original vaccine, booster dose, monovalent (MODERNA) Molly Kearns MD Work Phone: [facility] Work Phone: 02-09-2021 influenza virus vaccine, unspecified formulation Molly Kearns MD Work Phone: [facility] 08-04-2020 COVID-19 original vaccine, full dose, monovalent (MODERNLencho) Molly Kearns MD Work Phone: [facility] Work Phone: 07-07-2020 COVID-19 original vaccine, full dose, monovalent (MODERNLencho) Molly Kearns MD Work Phone: [facility] Work Phone: 01-30-2020 influenza, injectabl e, quadrivalent, contains preservative Molly Kearns MD Work Phone: [facility] 01-30-2020 influenza, injectabl e, quadrivalent, preservative free Dr. Molly Kearns Work Phone: [facility] 01-30-2020 influenza, seasonal, injectable Dr. Molly Kearns Work Phone: [facility] 02-08-2019 influenza virus vaccine, unspecified formulation Molly Kearns MD Work Phone: [facility] 02-04-2018 influenza, injectabl e, quadrivalent, contains preservative Molly Kearns MD Work Phone: [facility] 02-04-2018 influenza, injectabl e, quadrivalent, preservative free Dr. Molly Kearns Work Phone: [facility] 02-04-2018 influenza, seasonal, injectable Dr. Molly Kearns Work Phone: [facility] 01-28-2017 influenza, injectabl e, quadrivalent, contains preservative Molly Kearns MD Work Phone: [facility] 01-28-2017 influenza, injectabl e, quadrivalent, preservative free Dr. Molly Kearns Work Phone: [facility] 01-28-2017 influenza, seasonal, injectable Dr. Molly Kearns Work Phone: [facility] 02-03-2016 influenza, seasonal, injectable Molly Kearns MD Work Phone: [facility] 02-02-2015 influenza, injectabl e, quadrivalent, preservative free Dr. Molly Kearns Work Phone: [facility] 02-02-2015 influenza, seasonal, injectable Molly Kearns MD Work Phone: [facility] 04-01-2012 tetanus toxoid, redu denisse diphtheria toxoid, and acellular pertussis vaccine, adsorbed Molly Kearns MD Work Phone: [facility] 02-05-2012 influenza virus vaccine, unspecified formulation Molly Kearns MD Work Phone: [facility] 06-13-2011 pneumococcal polysaccharide vaccine, 23 valent Molly Kearns MD Work Phone: [facility] 04-11-2009 novel [id number], preservative-free, injectable Molly Kearns MD Work Phone: [facility] Payers Date Payer Category Payer [facility] PPO [id number] 2024 Unknown [id number] 2024 Unknown [id number] 2024 Private Health Insurance [id number] 2023 Private Health Insurance [id number] 2023 Self-pay [id number] 2022 Unknown [id number] 2015 Unknown [id number] Unknown [employer] PPO [id number] Unknown [facility] [id number] Unknown [id number] Unknown [id number] Unknown [id number] Unknown [id number] Unknown [id number] Social History Date Type Detail Facility Start: 04-09-2017 End: 03-05-2022 Tobacco smoking status NHIS Never smoked tobacco [facility] Start: 04-09-2017 End: 03-05-2022 Tobacco use and exposure Smokeless tobacco non-user [facility] Start: 11-04-2020 End: 06-22-2024 Alcohol intake Current non-drinker of alcohol (finding) [facility] Start: 11-10-2019 End: 06-30-2020 History SDOH Alcohol Frequency 1 [facility] Start: 11-10-2019 End: 03-03-2020 History SDOH Alcohol Std Drinks 98 [facility] Start: 11-10-2019 End: 03-03-2020 History SDOH Social Connections Phone 5 [facility] Start: 11-10-2019 End: 03-03-2020 History SDOH Social Connections Nondenominational 3 [facility] Start: 11-10-2019 End: 06-30-2020 History SDOH Transport Med 2 [facility] Start: 11-10-2019 Education 16 [facility] Start: 1965 Sex Assigned At Male [facility] Start: 11-05-2021 End: 03-05-2022 Exposure to SARS-CoV-2 (event) Not sure [facility] Start: 10-18-2022 End: 04-04-2023 Tobacco smoking status NHIS Unknown if ever smoked [facility] Start: 06-04-2020 Spouse/ Significant Other [facility] Start: 06-07-2020 Non-smoker [facility] Start: 03-03-2020 End: 10-25-2022 History of Social function [facility] Start: 03-03-2020 End: 10-25-2022 Social connection and isolation panel [facility] [facility] Start: 03-23-2012 How often do you get together with friends or relatives? Patient refused [facility] How often to you hav e a drink containing alcohol? Never [facility] Do you feel stress - tense, restless, nervous, or anxious, or unable to sleep at night because your mind is troubled all the time - these days [OSQ] Not at all [facility] (I/We) worried wheth er (my/our) food would run out before (I/we) got money to buy more. Never true [facility] In the past 12 month s, was there a time when you were not able to pay the mortgage or rent on time? No [facility] Start: 11-03-2020 Gender identity Identifies as male gender (finding) [facility] Start: 11-03-2020 Sexual orientation Heterosexual (finding) [facility] Do you belong to any clubs or organizations such as rastafarian groups, unions, fraternal or athletic groups, or school groups? Yes [facility] Are you now , , , , never or living with a partner? [facility] Medical Equipment Procedure Code Equipment Code Equipment Original Text Equipment Identifier Dates Lithotripsy, ESWL STENT,URETERAL PIGTAIL [id number] FDA Start: 06-09-2020 Lithotripsy, ESWL STENT,URETERAL PIGTAIL [id number] FDA Start: 06-09-2020 Lithotripsy, ESWL STENT,URETERAL PIGTAIL [id number] FDA Start: 06-09-2020 [id number], [id number] Start: 10-24-2022 Comment on above: Use one needle per d ose. 4 per day. Test blood sugar(s) up to 4 times daily. Dx: Type 2 DM - Uncontrolled E11.65 Insulin: Yes Dispense if reader for Freestyle Brenda 2 can use these test strips Goals Date Patient Goal Desired Activity /State Functional Status Date Assessment Result Facility 10-23-2022 Functional status Ambulates;Up a d batsheva;Bathroom Privilege [facility] Work Phone: 09-22-2014 Are you deaf, or do you have serious difficulty hearing No 09/22/2014 6:09 PM EDT Haydee Skelton LPN No [facility] 09-22-2014 Are you blind, or do you have serious difficulty seeing, even when wearing glasses No 09/22/2014 6:09 PM EDHaydee Rogers LPN No [facility] 09-22-2014 Do you have serious difficulty walking or climbing stairs No 09/22/2014 6:09 PM EDHaydee Rogers LPN No [facility] 09-22-2014 Do you have difficul ty dressing or bathing No 09/22/2014 6:09 PM Haydee Smith LPN No [facility] 09-22-2014 Because of a physica l, mental, or emotional condition, do you have difficulty doing errands alone such as visiting a physician's office or shopping No 09/22/2014 6:09 PM VISHNUT Haydee Skelton LPN No [facility] Mental Status Date Assessment Result Facility 10-23-2022 Cognitive function Voice/Name [facility] Work Phone: 09-22-2014 Because of a physica l, mental, or emotional condition, do you have serious difficulty concentrating, remembering, or making decisions No 09/22/2014 6:09 PM EDT Haydee Skelton LPN No [facility] Clinical Notes 01-05-2011 to 01-13-2025 NINOSKA ODONNELL - 01/01/2025 3:16 PM EDTTelephone Encounter - Giuliana Hardin LPN - 12/28/2024 2:19 PM EDTTelephone Encounter - Giuliana Hardin LPN - 12/28/2024 2:19 PM EDT Note Date & Type Note Facility 01-13-2025 Note HNO ID: [id number] Author: MOLLY KEARNS MD Service: ? Author Type: Physician Type: Progress Notes Filed: 02/22/2025 23:33 Note Text: Subjective Lonnie Denton is a 59 year old male. HPI HISTORY Lonnie Denton is a 59-year-old male with a history of DM and nephrolithiasis, presenting for evaluation of recent kidney stone passage and left arm pain. Lonnie reports experiencing symptoms consistent with nephrolithiasis, beginning on Saturday with mild bilateral flank pain rated at 1-1.5/10. The pain persisted and intensified, reaching 4/10, and fluctuated in intensity. On Saturday, the pain escalated to 8/10, described as feeling like "somebody [hit] a fist right here," accompanied by diaphoresis and hot flashes. The pain subsided to 0.2/10 by the time of the visit. Lonnie also noted hematuria today, which he attributes to the passage of a kidney stone. He denies any recent imaging studies or follow-up with a urologist since his last episode in May, when he experienced similar symptoms and passed a stone spontaneously. Lonnie has a history of nephrolithiasis, with a previous episode in May that resolved spontaneously. He also underwent lithotripsy in 2020. He reports that his blood glucose levels have been elevated during the past three days, with readings as high as 190-200 mg/dL, which he attributes to the stress and pain from the kidney stone. He has not used his insulin recently but requests a refill for emergency use. Additionally, Lonnie reports chronic left arm pain, localized to the triceps and deltoid muscles, which has been present for several months. The pain is exacerbated by certain movements, such as reaching into the refrigerator or mailbox, and is described as a cramping sensation. He denies any specific injury or trauma to the arm. PAST MEDICAL HISTORY Diagnosis Date Allergic rhinitis, [...] (FLONASE) 50 mcg/actuation nasal spray Use 2 sprays in each nostril once daily. loratadine (CLARITIN) 10 mg tablet Take 1 tablet by mouth once daily. Potassium Citrate 15 mEq TbER Take 1 tablet by mouth two times a day. gemfibrozil (LOPID) 600 mg tablet Take 1 tablet by mouth two times a day. flash glucose sensor (FREESTYLE BRENDA 2 SENSOR) kit Apply new sensor every fourteen (14) days to upper arm. Vitamin E, dl, acetate, (VITAMIN E) 400 unit capsule Take 2 capsules by mouth once daily. Benazepril-hydroCHLOROthiazide 10-12.5 mg per tablet Take 1 tablet by mouth once daily as needed. For SBP >130 flash glucose scanning reader (FREESTYLE BRENDA 2 READER) 1 Each once daily. blood sugar diagnostic (FREESTYLE LITE STRIPS) test strip Test blood sugar(s) up to 4 times daily. Dx: Type 2 DM - Uncontrolled E11.65 Insulin: Yes Dispense if reader for Freestyle Brenda 2 can use these test strips insulin needles, DISPOSABLE, (PEN NEEDLE) 31 gauge x 5/16" Use one needle per dose. 4 per day. CPAP Initiate Auto PAP @ 5-20 cm [...] daily. MULTIVITAMIN TAB Take one(1) tablet daily. insulin lispro (HUMALOG KWIKPEN INSULIN) 100 unit/mL Inject 4 Units subcutaneously three times a day before meals. Will titrate up as needed up to 40 units per day insulin glargine (LANTUS SOLOSTAR U-100 INSULIN) 100 unit/mL (3 mL) Inject 10-30 Units subcutaneously daily at bedtime. As directed No current facility-administered medications for this visit. ALLERGIES No Known Allergies FAMILY HISTORY Problem Relation Age of Onset Heart Mother Hypertension Mother Arthritis Mother fibromyalgia Chronic Kidney Disease Mother Coronary Artery Disease Father age 54 Diabetes Father other (Spina bifida) Sister other (Congenital Kidney problems) Sister other (Hemachromatosis, heterozygous) Sister Diabetes Paternal Grandfather SOCIAL HISTORY[1] Review of Systems Objective BP 148/72 Pulse 81 Resp 16 Ht 174 cm (5' 8.5") Wt 85.3 kg (188 lb 0.8 oz) SpO2 97% BMI 28.17 kg/m? Physical Exam Vitals reviewed. [employer] (more content not included)... [facility] 01-01-2025 Note HNO ID: [id number] Author: ?, ?, ? Service: ? Author Type: Licensed Nurse Type: Progress Notes Filed: 01/01/2025 15:17 Note Text: Patient presents for Flu and Twinrix vaccines. Denies any problems at this time. Tolerated injections well. Ninoska Odonnell LPN [facility] 01-01-2025 History of Present illness Narrative Patient presents for Flu and Twinrix vaccines. Denies any problems at this time. Tolerated injections well. Ninoska Odonnell LPN documented in this encounter [facility] 12-28-2024 Telephone encounter Note Patients notified that we do not have COVID at this time but could get flu with Hep vaccine. [facility] 12-28-2024 Miscellaneous Notes Patients notified that we do not have COVID at this time but could get flu with Hep vaccine. Spoke with patient's spouse to reschedule. Patient's spouse asked if patient should get his flu/COVID vaccines with his 3rd Hep vaccine later this week. Please advise. Traci Grubbs documented in this encounter [facility] 12-28-2024 Telephone encounter Note Spoke with patient's spouse to reschedule. Patient's spouse asked if patient should get his flu/COVID vaccines with his 3rd Hep vaccine later this week. Please advise. Traci Grubbs [facility] 10-22-2024 Telephone encounter Note The following approved medication requests have been transmitted electronically. Requested Prescriptions Pending Prescriptions Disp Refills gemfibrozil (LOPID) 600 mg tablet 180 tablet 3 Sig: Take 1 tablet by mouth two times a day. Molly Kearns MD [facility] 10-22-2024 Miscellaneous Notes The following approved medication requests have been transmitted electronically. Requested Prescriptions Pending Prescriptions Disp Refills gemfibrozil (LOPID) 600 mg tablet 180 tablet 3 Sig: Take 1 tablet by mouth two times a day. Molly Kearns MD Pharmacy stated they need a new Rx. Asked if this can please be sent today. Patient has been identified by name and date of : Yes Patient phones for refill(s): Requested Prescriptions Pending Prescriptions Disp Refills gemfibrozil (LOPID) 600 mg tablet 180 tablet 3 Sig: Take 1 tablet by mouth two times a day. Date of last office visit in primary care: 06/22/2024 Date of next office visit in primary care: 12/28/2024 Please advise. Thank you. Norma Garvey. documented in this encounter [facility] 10-22-2024 Telephone encounter Note Pharmacy stated they need a new Rx. Asked if this can please be sent today. Patient has been identified by name and date of : Yes Patient phones for refill(s): Requested Prescriptions Pending Prescriptions Disp Refills gemfibrozil (LOPID) 600 mg tablet 180 tablet 3 Sig: Take 1 tablet by mouth two times a day. Date of last office visit in primary care: 06/22/2024 Date of next office visit in primary care: 12/28/2024 Please advise. Thank you. Norma Garvey. [facility] 10-12-2024 Telephone encounter Note Images from the original note were not included. Electronic PA reviewed and completed for freestyle brenda 2 sensors. This was approved. Prior authorization approved Payer: Sanju Note from payer: SANTO Case: [id number], Status: Partially Approved, Coverage Starts on: 10/09/2024 12:00:00 AM, Coverage Ends on: 10/09/2025 12:00:00 AM. Approval Details Authorization number: [id number] Authorized from October 09, 2024 to October 09, 2025 Electronic appeal: Not supported View History Notes Time User Attachment Attachment received from payer. 10/09/2024 5:32 PM Cchs, Rx Priorauth In Document Medication Being Authorized flash glucose sensor (FREESTYLE BRENDA 2 SENSOR) kit Apply new sensor every fourteen (14) days to upper arm. Dispense: 6 each Refills: 4 Start: 10/05/2024 Class: Normal Diagnoses: Type 2 diabetes mellitus without complication, with long-term current use of insulin (HCC) This order has been released to its destination. To be filled at: [facility]- [id number] [place] [address] - [address] [facility] [phone] [id number] Pharmacy notified. [facility] 10-12-2024 Miscellaneous Notes Images from the original note were not included. Electronic PA reviewed and completed for freestyle brenda 2 sensors. This was approved. Prior authorization approved Payer: Sanju Note from payer: SANTO Case: [id number], Status: Partially Approved, Coverage Starts on: 10/09/2024 12:00:00 AM, Coverage Ends on: 10/09/2025 12:00:00 AM. Approval Details Authorization number: [id number] Authorized from October 09, 2024 to October 09, 2025 Electronic appeal: Not supported View History Notes Time User Attachment Attachment received from payer. 10/09/2024 5:32 PM Cchs, Rx Priorauth In Document Medication Being Authorized flash glucose sensor (FREESTYLE BRENDA 2 SENSOR) kit Apply new sensor every fourteen (14) days to upper arm. Dispense: 6 each Refills: 4 Start: 10/05/2024 Class: Normal Diagnoses: Type 2 diabetes mellitus without complication, with long-term current use of insulin (HCC) This order has been released to its destination. To be filled at: [id number] [place] [address] - [address] [phone] Pharmacy notified. documented in this encounter [facility] 10-10-2024 Telephone encounter Note Per med PA, sensors have been approved. Authorization number: [id number] Authorized from October 09, 2024 to October 09, 2025 Information received electronically from payer Called pt and notified of approval. Sent the above information to [facility] for reference if he speaks with [employer] in [place] and they say they are still waiting on the PA. [facility] 10-10-2024 Miscellaneous Notes Per med PA, sensors have been approved. Authorization number: [id number] Authorized from October 09, 2024 to October 09, 2025 Information received electronically from payer Called pt and notified of approval. Sent the above information to pt's [facility] for reference if he speaks with [employer] in [place] and they say they are still waiting on the PA. Patient is checking on status. Please send Prior Authorization to [facility] if approved and notify patient. [phone] Electronic PA rec'd for freestyle brenda sensors. documented in this encounter [facility] 10-09-2024 Telephone encounter Note Patient is checking on status. Please send Prior Authorization to [facility] if approved and notify patient. [phone] [facility] Work Phone: 10-06-2024 Telephone encounter Note Electronic PA rec'd for freestyle brenda sensors. [facility] 10-05-2024 Telephone encounter Note The following approved medication requests have been transmitted electronically. Requested Prescriptions Pending Prescriptions Disp Refills flash glucose sensor (FREESTYLE BRENDA 2 SENSOR) kit 6 each 4 Sig: Apply new sensor every fourteen (14) days to upper arm. Molly Kearns MD [facility] 10-05-2024 Miscellaneous Notes The following approved medication requests have been transmitted electronically. Requested Prescriptions Pending Prescriptions Disp Refills flash glucose sensor (FREESTYLE BRENDA 2 SENSOR) kit 6 each 4 Sig: Apply new sensor every fourteen (14) days to upper arm. Molly Kearns MD Prescription Refill Information The patient has been identified by name and date of : Yes Caregiver verified no other encounters exist for this prescription request: Yes Caregiver confirmed with patient/requestor that no other refills are due, in the near future, with this provider at this time: Yes The last office visit in the department: 07-24-24 Does the patient have a future office visit with this provider/department: Yes Requested Prescriptions Pending Prescriptions Disp Refills flash glucose sensor (FREESTYLE BRENDA 2 SENSOR) kit 6 each 4 Sig: Apply new sensor every fourteen (14) days to upper arm. Yaneli Steward October 02, 2024 9:40 AM documented in this encounter [facility] 10-02-2024 Telephone encounter Note Prescription Refill Information The patient has been identified by name and date of : Yes Caregiver verified no other encounters exist for this prescription request: Yes Caregiver confirmed with patient/requestor that no other refills are due, in the near future, with this provider at this time: Yes The last office visit in the department: 07-24-24 Does the patient have a future office visit with this provider/department: Yes Requested Prescriptions Pending Prescriptions Disp Refills flash glucose sensor (FREESTYLE BRENDA 2 SENSOR) kit 6 each 4 Sig: Apply new sensor every fourteen (14) days to upper arm. Yaneli Steward October 02, 2024 9:40 AM [facility] 07-24-2024 Note HNO ID: [id number] Author: ?, ?, ? Service: ? Author Type: LICENSED NURSE Type: Progress Notes Filed: 07/24/2024 15:32 Note Text: Patient presents for Twinrix vaccine. Denies any problems at this time. Tolerated injection well. Ninoska Odonnell LPN [facility] 07-24-2024 History of Present illness Narrative Patient presents for Twinrix vaccine. Denies any problems at this time. Tolerated injection well. Ninoska Odonnell LPN documented in this encounter [facility] 07-02-2024 Telephone encounter Note Patient updated Jaki Lebron RN [facility] 07-02-2024 Miscellaneous Notes Patient updated Jaki Lebron RN Please let him know FS every two years (September 2025) I would be please to see him in the office (or V V) if he would like to review things in detail. Thanks Francisco Sanchez MD Usually, normal FS results means repeat in 2 years 09/26/23 results: Please refer to get images report for individual readings Number of readings: 10 IQR %: 13 E (kpa): 10.4 CAP: 323 Impression The reading was adequate. FS = 10.4 kPA. The CAP score is 323 and corresponds to steatosis grade of S3. Order pended in case FS should be done again in September Jaki Lebron RN July 02, 2024 9:53 AM Pt called in Fibroscan order needed Matthieu Gamboa [employer]ive [employer] Trainer iain documented in this encounter [facility] 07-02-2024 Telephone encounter Note Please let him know FS every two years (September 2025) I would be please to see him in the office (or V V) if he would like to review things in detail. Thanks Francisco Sanchez MD [facility] Work Phone: 07-02-2024 Telephone encounter Note Usually, normal FS results means repeat in 2 years 09/26/23 results: Please refer to get images report for individual readings Number of readings: 10 IQR %: 13 E (kpa): 10.4 CAP: 323 Impression The reading was adequate. FS = 10.4 kPA. The CAP score is 323 and corresponds to steatosis grade of S3. Order pended in case FS should be done again in September Jaki Lebron RN July 02, 2024 9:[address] [facility] 07-02-2024 Telephone encounter Note Pt called in Fibroscan order needed Matthieu Gamboa Assistive Technology Trainer ll [facility] 06-22-2024 Instructions Molly Kearns MD - 06/22/2024 5:43 PM EST - Take Vitamin E 800 IU daily in the morning; take two 400 IU pills to achieve the 800 IU dosage. - Monitor your blood pressure at home regularly. Take benazepril hydrochlorothiazide as needed if your systolic blood pressure (top number) is over 130. A 90-day supply with refills has been sent to your pharmacy. - Continue monitoring your blood sugar levels regularly. Aim to keep non-fasting blood sugar under 140 mg/dL and fasting blood sugar under 126 mg/dL. - Complete the elastography scheduled for March. - Complete the Hepatitis A and B vaccination series (Twinrix) as scheduled. - Next follow-up appointment in 6 months. Your provider has asked you to monitor your blood pressure at home and report back to us with your readings in 1-2 weeks. This is important to ensure we keep your blood pressure in control and keep you healthy. How should I check my blood pressure? Check your blood pressure 1-2 times a day In the morning prior to taking any medications In the evening 2. Sit calmly for 5 minutes, with both feet on the ground, in a relaxing environment 3. Check your blood pressure twice each time, about 1 minute apart 4. Write down the best blood pressure with heart rate, the date and time taken. How can I report my blood pressure readings to my care team? Your provider may enroll you in [employer] Home BP Monitoring. Use the Track My Health section of [employer] to log your readings. Alternatively, you can call our office or send a [employer] Message. Report the readings with the BP, Heart Rate, Date and Time of your readings. Example: 04/22/24 @ 8 AM - 130/80 - HR 80 How can I prepare for future office visits? Check your blood pressure 1-2 times per week. If your blood pressure is consistently over 135/85, please check it daily and bring your readings to your upcoming appointment Bring your blood pressure cuff with you to an appointment once a year. This allows us to check its accuracy. See your Primary Care Team for High Blood Pressure at least 1-2 times per year What type of blood pressure cuff should I use? An electronic blood pressure monitor with an arm cuff is best. Please avoid wrist or finger blood pressure monitors. Visit [email or web address] or talk to your pharmacist to find an affordable cuff that is the correct size. documented in this encounter [facility] 06-22-2024 Note HNO ID: [id number] Author: MOLLY KEARNS MD Service: ? Author Type: Physician Type: Progress Notes Filed: 07/22/2024 13:06 Note Text: This note was created using [employer]. Subjective Lonnie Denton is a 58 year old male. Patient presents with: F/U 6 Month SUBJECTIVE: Lonnie Denton is a 58 year old year old gentleman here today for 6 month follow up appointment for review of medical conditions. Lonnie Denton is a 58-year-old male with a history of MASLD, impaired fasting glucose, and hypertension, presenting for follow-up. Lonnie is currently under the care of Dr. Sanchez, who recommended hepatitis A and B vaccinations. He is currently taking vitamin E 800 IU daily, as recommended by Dr. Sanchez, to slow or potentially reverse fibrosis. He is scheduled for an elastography in March. Lonnie is also taking benazepril-hydrochlorothiazide as needed for blood pressure readings over 130 mmHg systolic. He typically takes half a pill, but may take a full pill depending on his blood pressure readings. He reports that his blood pressure is usually well-controlled, though it was elevated today. He monitors his blood pressure at home. Lonnie monitors his blood glucose levels regularly and notes that his average blood glucose was 146 mg/dL yesterday, down from a recent high of 151 mg/dL. He attributes the recent increase to stress from job loss and subsequent job search. He reports that his blood glucose levels are usually well-controlled during lunch and dinner, but tend to rise at night and in the morning. He checks his blood glucose levels at least 90 minutes after meals and notes that his levels peak about 3 hours after eating before starting to decrease. Two weeks ago, Lonnie experienced severe abdominal pain, which he describes as 7-10/10 in intensity. The pain was so severe that he was "crying out in pain" and required assistance with dressing. The pain was located on the right side and radiated to his back. He considered going to the hospital, but the pain began to subside during the car ride. He has a history of nephrolithiasis and suspects that the pain may have been due to a kidney stone. He denies nausea or emesis during the episode. He also reports a mild stomachache on the first day of his new job, which he attributes to nerves. He has a history of cholecystectomy. PAST MEDICAL HISTORY Diagnosis Date Allergic rhinitis, [...] sleep apnea Current Outpatient Medications Medication Sig flash glucose sensor (FREESTYLE BRENDA 2 SENSOR) kit Apply new sensor every fourteen (14) days to upper arm. loratadine (CLARITIN) 10 mg tablet Take 1 tablet by mouth once daily. Potassium Citrate 15 mEq TbER Take 1 tablet by mouth two times a day. fluticasone (FLONASE) 50 mcg/actuation nasal spray Use 2 Sprays in each nostril once daily. gemfibrozil (LOPID) 600 mg tablet Take 1 tablet by mouth two times a day. flash glucose scanning reader (FREESTYLE BRENDA 2 READER) 1 Each once daily. Benazepril-hydroCHLOROthiazide 10-12.5 mg per tablet Take 1 tablet by mouth once daily. insulin lispro (HUMALOG KWIKPEN INSULIN) 100 unit/mL Inject 4 Units subcutaneously three times a day before meals. Will titrate up as needed up to 40 units per day blood sugar diagnostic (FREESTYLE LITE STRIPS) test strip Test blood sugar(s) up to 4 times daily. Dx: Type 2 DM - Uncontrolled E11.65 Insulin: Yes Dispense if reader for Freestyle Brenda 2 can use these test strips insulin needles, DISPOSABLE, (PEN NEEDLE) 31 gauge x 5/16" Use one needle per dose. 4 per day. CPAP Initiate Auto PAP @ 5-20 cm [...] this visit. Review of Systems Objective BP 140/58 Pulse 81 Ht 177 cm (5' 9.69") Wt 83.3 kg (183 lb 10.3 oz) SpO2 99% BMI 26.58 kg/m? Last 5 Encounter Wt Readings: Date: Wt: 06/22/2024 83.3 kg (183 lb 10.3 oz) 03/25/2024 84.4 kg (186 lb 1.1 oz) 03/12/2024 84.6 kg (186 lb 8 oz) 12/02/2023 84 kg (185 lb 3 oz) (more content not included)... [facility] 06-22-2024 History of Present illness Narrative This note was created using Kloodter. Subjective Lonnie Denton is a 58 year old male. Patient presents with: F/U 6 Month SUBJECTIVE: Lonnie Denton is a 58 year old year old gentleman here today for 6 month follow up appointment for review of medical conditions. Lonnie Denton is a 58-year-old male with a history of MASLD, impaired fasting glucose, and hypertension, presenting for follow-up. Lonnie is currently under the care of Dr. Sanchez, who recommended hepatitis A and B vaccinations. He is currently taking vitamin E 800 IU daily, as recommended by Dr. Sanchez, to slow or potentially reverse fibrosis. He is scheduled for an elastography in March. Lonnie is also taking benazepril-hydrochlorothiazide as needed for blood pressure readings over 130 mmHg systolic. He typically takes half a pill, but may take a full pill depending on his blood pressure readings. He reports that his blood pressure is usually well-controlled, though it was elevated today. He monitors his blood pressure at home. Lonnie monitors his blood glucose levels regularly and notes that his average blood glucose was 146 mg/dL yesterday, down from a recent high of 151 mg/dL. He attributes the recent increase to stress from job loss and subsequent job search. He reports that his blood glucose levels are usually well-controlled during lunch and dinner, but tend to rise at night and in the morning. He checks his blood glucose levels at least 90 minutes after meals and notes that his levels peak about 3 hours after eating before starting to decrease. Two weeks ago, Lonnie experienced severe abdominal pain, which he describes as 7-10/10 in intensity. The pain was so severe that he was "crying out in pain" and required assistance with dressing. The pain was located on the right side and radiated to his back. He considered going to the hospital, but the pain began to subside during the car ride. He has a history of nephrolithiasis and suspects that the pain may have been due to a kidney stone. He denies nausea or emesis during the episode. He also reports a mild stomachache on the first day of his new job, which he attributes to nerves. He has a history of cholecystectomy. PAST MEDICAL HISTORY Diagnosis Date Allergic rhinitis, [...] sleep apnea Current Outpatient Medications Medication Sig flash glucose sensor (FREESTYLE BRENDA 2 SENSOR) kit Apply new sensor every fourteen (14) days to upper arm. loratadine (CLARITIN) 10 mg tablet Take 1 tablet by mouth once daily. Potassium Citrate 15 mEq TbER Take 1 tablet by mouth two times a day. fluticasone (FLONASE) 50 mcg/actuation nasal spray Use 2 Sprays in each nostril once daily. gemfibrozil (LOPID) 600 mg tablet Take 1 tablet by mouth two times a day. flash glucose scanning reader (FREESTYLE BRENDA 2 READER) 1 Each once daily. Benazepril-hydroCHLOROthiazide 10-12.5 mg per tablet Take 1 tablet by mouth once daily. insulin lispro (HUMALOG KWIKPEN INSULIN) 100 unit/mL Inject 4 Units subcutaneously three times a day before meals. Will titrate up as needed up to 40 units per day blood sugar diagnostic (FREESTYLE LITE STRIPS) test strip Test blood sugar(s) up to 4 times daily. Dx: Type 2 DM - Uncontrolled E11.65 Insulin: Yes Dispense if reader for Freestyle Brenda 2 can use these test strips insulin needles, DISPOSABLE, (PEN NEEDLE) 31 gauge x 5/16" Use one needle per dose. 4 per day. CPAP Initiate Auto PAP @ 5-20 cm [...] this visit. Review of Systems Objective BP 140/58 Pulse 81 Ht 177 cm (5' 9.69") Wt 83.3 kg (183 lb 10.3 oz) SpO2 99% BMI 26.58 kg/m Last 5 Encounter Wt Readings: Date: Wt: 06/22/2024 83.3 kg (183 lb 10.3 oz) 03/25/2024 84.4 kg (186 lb 1.1 oz) 03/12/2024 84.6 kg (186 lb 8 oz) 12/02/2023 84 kg (185 lb 3 oz) 08/16/2023 82.1 kg (181 lb) No waist measurement recorded Estimated body mass index is 26.58 kg/m as calculated from the following: Height as of this encounter: 177 cm (5' 9.69"). Weight as of this encounter: 83.3 kg (183 lb 10.3 oz). Last 5 Encounter BP Readings: Date: BP: 06/22/2024 140/58 03/25/2024 157/73 03/12/2024 153/75 12/02/2023 122/64 08/16/2023 130/60 06/22/24 1550 06/22/24 1753 BP: 140/58 132/60 Pulse: 81 SpO2: 99% Weight: 83.3 kg (183 lb 10.3 oz) Height: 177 cm (5' 9.69") Physical Exam Vitals reviewed. Constitutional: Appearance: Normal appearance. Eyes: Conjunctiva/sclera: Conjunctivae normal. Cardiovascular: Rate and Rhythm: Normal rate and regular rhythm. Heart sounds: Normal heart sounds. Pulmonary: Effort: Pulmonary effort is normal. Breath sounds: Normal breath sounds. Musculoskeletal: Right lower leg: No edema. Left lower leg: No edema. Skin: General: Skin is warm and dry. Neurological: General: No focal deficit present. Mental Status: He is alert and oriented to person, place, and time. Psychiatric: Mood and Affect: Mood normal. Behavior: Behavior normal. Thought Content: Thought content normal. Judgment: Judgment normal. Hemoglobin A1C (%) Date Value 03/06/2024 5.9 11/27/2023 5.7 08/09/2023 5.7 03/25/2023 5.6 11/14/2022 7.4 03/13/2021 6.2 10/28/2020 6.3 06/21/2020 6.1 02/26/2020 6.3 11/12/2019 7.2 Assessment and Plan # Type 2 diabetes mellitus without complication, without long-term current use of insulin (HCC) (E11.9) - Blood glucose levels have been elevated, with recent averages of 151 mg/dL, now trending down to 146 mg/dL. - Discussed target blood glucose levels: fasting <126 mg/dL and non-fasting <140 mg/dL. - Declined in-office hemoglobin A1c test today; will perform A1c and lipid panel at next appointment. - Continue monitoring blood glucose levels regularly. # Essential hypertension (I10) - Blood pressure readings today: 148/50 mmHg and 132/60 mmHg. - Prescribed benazepril as needed for systolic BP >130 mmHg; 90-day supply with refills. - Provided education on home blood pressure monitoring techniques and importance of consistent readings. 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 - Scheduled elastography in March. - Recent liver function tests showed slightly elevated AST, ALT, and bilirubin. 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 # Encounter for long-term current use of medication (Z79.899) - Continue Vitamin E 800 IU daily. - Benazepril prescribed as needed for hypertension management. # Need for vaccination (Z23) - Ordered Twinrix (Hepatitis A and B combined vaccine) series. - First dose to be administered today if available; subsequent doses to be scheduled with [facility]. The patient consented to the use of Flixpress software for draft documentation of the visit consistent with [facility] s Notice of Privacy Practices. Molly Kearns MD documented in this encounter [facility] 06-01-2024 Telephone encounter Note The following approved medication requests have been transmitted electronically. Requested Prescriptions Pending Prescriptions Disp Refills flash glucose sensor (FREESTYLE BRENDA 2 SENSOR) kit 6 Each 4 Sig: Apply new sensor every fourteen (14) days to upper arm. Molly Kearns MD [facility] 06-01-2024 Miscellaneous Notes The following approved medication requests have been transmitted electronically. Requested Prescriptions Pending Prescriptions Disp Refills flash glucose sensor (FREESTYLE BRENDA 2 SENSOR) kit 6 Each 4 Sig: Apply new sensor every fourteen (14) days to upper arm. Molly Kearns MD The patient has been identified by name and date of : Yes Caregiver verified no other encounters exist for this prescription request: Yes Caregiver confirmed with patient/requestor that no other refills are due, in the near future, with this provider at this time: Yes The last office visit in the department: 12/02/2023 Does the patient have a future office visit with this provider/department: 06/22/2024 Requested Prescriptions Pending Prescriptions Disp Refills flash glucose sensor (FREESTYLE BRENDA 2 SENSOR) kit 6 Each 4 Sig: Apply new sensor every fourteen (14) days to upper arm. Patient is completely out. Didn't realize prescription had . Requesting it be sent today. Adriane Arizmendi RN June 01, 2024 8:45 AM documented in this encounter [facility] 06-01-2024 Telephone encounter Note The patient has been identified by name and date of : Yes Caregiver verified no other encounters exist for this prescription request: Yes Caregiver confirmed with patient/requestor that no other refills are due, in the near future, with this provider at this time: Yes The last office visit in the department: 12/02/2023 Does the patient have a future office visit with this provider/department: 06/22/2024 Requested Prescriptions Pending Prescriptions Disp Refills flash glucose sensor (FREESTYLE BRENDA 2 SENSOR) kit 6 Each 4 Sig: Apply new sensor every fourteen (14) days to upper arm. Patient is completely out. Didn't realize prescription had . Requesting it be sent today. Adriane Arizmendi RN June 01, 2024 8:45 AM [facility] 03-25-2024 Note HNO ID: [id number] Author: FRANCISCO SANCHEZ MD Service: ? 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 HEENT: neg extrem: no edemas neuro: no AMS Imoression: MASLD/MASH HFE Compound heterozygote Long discussion re possible introduction of resmetirom/ He has done extensive reading on this and does not want to take it. I am reluctant to advocate for it because we have no practical monitoring tools in him Rec: continue current program Vitamin E 800 international unit(s) daily see 6-12 months. 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 MetSyn largely controlled Rec: discussed management discussed resmetirom we will discuss again in 6 months Interval Latest Ref Rng 03/06/2024 Albumin 3.9 - 4.9 g/dL 5.0 (H) Bilirubin, Total 0.2 - 1.3 mg/dL 1.1 Bilirubin, Direct <0.2 mg/dL 0.3 (H) Alkaline Phosphatase 38 - 113 U/L 69 AST 14 - 40 U/L 24 ALT 10 - 54 U/L 21 Protein, Total 6.3 - 8.0 g/dL 7.3 Legend: (H) High FS/CAP = 10.4/323 Exam: BP 157/73 Pulse 87 Temp 36.5 C (97.7 F) (Temporal) Ht 177 cm (5' 9.69") Wt 84.4 kg (186 lb 1.1 oz) SpO2 98% BMI 26.94 kg/m HEENT: neg extrem: no edemas neuro: no AMS Imoression: MASLD/MASH HFE Compound heterozygote Long discussion re possible introduction of resmetirom/ He has done extensive reading on this and does not want to take it. I am reluctant to advocate for it because we have no practical monitoring tools in him Rec: continue current program Vitamin E 800 international unit(s) daily see 6-12 months. LAbs to include ferriting, iron studies 25 min more than 50% counseling Francisco Sanchez MD documented in this encounter [facility] 03-12-2024 Note HNO ID: [id number] Author: MITCH HERNANDEZ, DO Service: ? Author Type: Physician Type: Progress Notes Filed: 03/12/2024 11:13 Note Text: Patient referred by Jean Sylvester APRN.CNP for hypogammaglobulinemia. HPI: The patient is a 58 yo male with a PMH as outlined below. Developed intensely itchy rash 12/2023. Pictures in dermatology note. 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 Used Kanalog cream as well as antihistamine and rash has since completely resolved. Was told he should have workup for plasma cell disorder. Recent lab work noted. Very mildly low serum immunoglobulin fraction on electrophoresis. No monoclonal protein. Mildly low total IgG. I spent time going through [facility] records. He was admitted summer 2022 for acute hepatitis and cholecystitis as well as pancreatitis. Underwent cholecystectomy. Had extensive workup which included serum immunoglobulins wherein the total IgG was 579 and all 4 subclasses of IgG were normal. Serum protein electrophoresis demonstrated no monoclonal protein. Immunofixation of the serum negative. Since he was diagnosed with steatohepatitis. [facility]. Liver biopsy slides reviewed at [facility]. 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 Most recent serum ferritin March 2023 normal. Acutely elevated to 1000 when he was hospitalized in 10/2022. PAST MEDICAL HISTORY Diagnosis Date Allergic rhinitis, [...] HgA1C>=6.5 Unspecified essential hypertension Unspecified sleep apnea PAST SURGICAL HISTORY Procedure Laterality Date EXCISION PILONIDAL CYST/SINUS COMPLICATED 1970s F LITHOTRIPSY 06/09/2020 [facility], Dr. Swan loratadine (CLARITIN) 10 mg tablet Take 1 tablet by mouth once daily. flash glucose sensor (FREESTYLE BRENDA 2 SENSOR) kit Apply new sensor every fourteen (14) days to upper arm. Potassium Citrate 15 mEq TbER Take 1 tablet by mouth two times a day. fluticasone (FLONASE) 50 mcg/actuation nasal spray Use 2 Sprays in each nostril once daily. gemfibrozil (LOPID) 600 mg tablet Take 1 tablet by mouth two times a day. flash glucose scanning reader (tagUinSTDragonplay BRENDA 2 READER) 1 Each once daily. Benazepril-hydroCHLOROthiazide 10-12.5 mg per tablet Take 1 tablet by mouth once daily. (Patient taking differently: Take 1 tablet by mouth once daily. Taking PRN parameters if systolic is >130 takes 1/5 tablet) insulin lispro (HUMALOG KWIKPEN INSULIN) 100 unit/mL Inject 4 Units subcutaneously three times a day before meals. Will titrate up as needed up to 40 units per day (Patient taking differently: Inject 4 Units subcutaneously three times a day before meals. Will titrate up as needed up to 40 units per day 08/16/2023 is taking only as needed per Dr. Kearns 03/2023) blood sugar diagnostic (FREESTYLE LITE STRIPS) test strip Test blood sugar(s) up to 4 times daily. Dx: Type 2 DM - Uncontrolled E11.65 Insulin: Yes Dispense if reader for Freestyle Brenda 2 can use these test strips insulin needles, DISPOSABLE, (PEN NEEDLE) 31 gauge x 5/16" Use one needle per dose. 4 per day. CPAP Initiate Auto PAP @ 5-20 cm [...] daily. MULTIVITAMIN TAB Take one(1) tablet daily. ALLERGIES No Known Allergies Social History Tobacco Use Smoking status: Never Smokeless tobacco: Never Substance Use Topics Alcohol use: No Drug use: No FAMILY HISTORY Problem Relation Age of Onset Heart Mother Hypertension Mother Arthritis Mother fibromyalgia Chronic Kidney Disease Mother Coronary Artery Disease Father age 54 Diabetes Father other (Spina bifida) Sister other (Congenital Kidney problems) Sister other (Hemachromatosis, heterozygous) Sister Diabetes Paternal Grandfather REVIEW OF SYSTEMS: Constitutional: No episodes of fever and night sweats. Not significantly fatigued. Normal appetite. Neuro: No SANTANA, vertigo, dizziness and imbalance. No symptoms of neuropathy. HEENT: No recent change in voice, vision or hearing. Resp: No cough, wheeze and hemoptysis. No shortness of breath at rest. No RAMOS. CVS: No exertional chest pain, PND, orthopnea and LE e (more content not included)... [facility] 03-12-2024 History of Present illness Narrative Patient referred by Jean Sylvester APRN.[employer] for hypogammaglobulinemia. HPI: The patient is a 58 yo male with a PMH as outlined below. Developed intensely itchy rash 12/2023. Pictures in dermatology note. 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 Used Kanalog cream as well as antihistamine and rash has since completely resolved. Was told he should have workup for plasma cell disorder. Recent lab work noted. Very mildly low serum immunoglobulin fraction on electrophoresis. No monoclonal protein. Mildly low total IgG. I spent time going through [facility]. He was admitted summer 2022 for acute hepatitis and cholecystitis as well as pancreatitis. Underwent cholecystectomy. Had extensive workup which included serum immunoglobulins wherein the total IgG was 579 and all 4 subclasses of IgG were normal. Serum protein electrophoresis demonstrated no monoclonal protein. Immunofixation of the serum negative. Since he was diagnosed with steatohepatitis. [facility]. Liver biopsy slides reviewed at [facility]. 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 Most recent serum ferritin March 2023 normal. Acutely elevated to 1000 when he was hospitalized in 10/2022. PAST MEDICAL HISTORY Diagnosis Date Allergic rhinitis, [...] HgA1C>=6.5 Unspecified essential hypertension Unspecified sleep apnea PAST SURGICAL HISTORY Procedure Laterality Date EXCISION PILONIDAL CYST/SINUS COMPLICATED 1970s F [facility]) 10 mg tablet Take 1 tablet by mouth once daily. flash glucose sensor (iMusicaYLE BRENDA 2 SENSOR) kit Apply new sensor every fourteen (14) days to upper arm. Potassium Citrate 15 mEq TbER Take 1 tablet by mouth two times a day. fluticasone (FLONASE) 50 mcg/actuation nasal spray Use 2 Sprays in each nostril once daily. gemfibrozil (LOPID) 600 mg tablet Take 1 tablet by mouth two times a day. flash glucose scanning reader (Soil IQ BRENDA 2 READER) 1 Each once daily. Benazepril-hydroCHLOROthiazide 10-12.5 mg per tablet Take 1 tablet by mouth once daily. (Patient taking differently: Take 1 tablet by mouth once daily. Taking PRN parameters if systolic is >130 takes 1/5 tablet) insulin lispro (HUMALOG KWIKPEN INSULIN) 100 unit/mL Inject 4 Units subcutaneously three times a day before meals. Will titrate up as needed up to 40 units per day (Patient taking differently: Inject 4 Units subcutaneously three times a day before meals. Will titrate up as needed up to 40 units per day 08/16/2023 is taking only as needed per Dr. Kearns 03/2023) blood sugar diagnostic (FREESTYLE LITE STRIPS) test strip Test blood sugar(s) up to 4 times daily. Dx: Type 2 DM - Uncontrolled E11.65 Insulin: Yes Dispense if reader for Freestyle Brenda 2 can use these test strips insulin needles, DISPOSABLE, (PEN NEEDLE) 31 gauge x 5/16" Use one needle per dose. 4 per day. CPAP Initiate Auto PAP @ 5-20 cm [...] daily. MULTIVITAMIN TAB Take one(1) tablet daily. ALLERGIES No Known Allergies Social History Tobacco Use Smoking status: Never Smokeless tobacco: Never Substance Use Topics Alcohol use: No Drug use: No FAMILY HISTORY Problem Relation Age of Onset Heart Mother Hypertension Mother Arthritis Mother fibromyalgia Chronic Kidney Disease Mother Coronary Artery Disease Father age 54 Diabetes Father other (Spina bifida) Sister other (Congenital Kidney problems) Sister other (Hemachromatosis, heterozygous) Sister Diabetes Paternal Grandfather REVIEW OF SYSTEMS: Constitutional: No episodes of fever and night sweats. Not significantly fatigued. Normal appetite. Neuro: No SANTANA, vertigo, dizziness and imbalance. No symptoms of neuropathy. HEENT: No recent change in voice, vision or hearing. Resp: No cough, wheeze and hemoptysis. No shortness of breath at rest. No RAMOS. CVS: No exertional chest pain, PND, orthopnea and LE edema. GI: No altered taste or symptoms of stomatitis. No dysphagia and odynophagia. No reflux, n/v, change in bowel habits or abdominal pain. : No dysuria or gross hematuria. No symptoms of bladder outlet obstruction. Endo: No hot flashes. No polyuria and polydipsia. No heat and cold intolerance. Musculoskeletal: No bone, back, joint and muscular pain. Derm: See above. Heme: No unusual bleeding and unexplained bruising. Psych: Normal mood. PHYSICAL EXAM: Vitals: Blood pressure 153/75, pulse 85, temperature 36.8 C (98.3 F), height 177 cm (5' 9.69"), weight 84.6 kg (186 lb 8 oz), SpO2 98%. Well-appearing and in no acute distress. EYES: Sclerae are anicteric bilaterally. LYMPHATIC: There is no palpable adenopathy. RESPIRATORY: Inspiratory breath sounds are of normal intensity in all yu. No rales, wheezes or rhonchi. CARDIOVASCULAR: Rhythm is regular. ABDOMEN: The abdomen is nondistended. No splenomegaly or hepatomegaly. No tenderness. Extremities: No swelling or edema. SKIN: No jaundice or rash. ASSESSMENT/PLAN: (D80.1) Hypogammaglobulinemia (HCC) Assessment: -58-year-old male past medical history as outlined above. -Recent finding of mildly low total serum IgG. Prior workup demonstrated normal IgG subclasses. No evidence of monoclonal protein. -Reviewed his lab work in detail with him and his . -Does not appear to have evidence of a immunodeficiency syndrome. Answered their questions to their satisfaction. -Etiology of recent rash unclear but completely resolved with topical steroid and antihistamine treatment. Plan: -No further hematologic workup indicated at this time. -Return as needed. I spent a total of 65 minutes on the date of the service which included preparing to see the patient, [id number] patient care, completing clinical documentation, obtaining and/or reviewing separately obtained history, performing a medically appropriate examination, counseling and educating the patient/family/caregiver, ordering medications, tests, or procedures, communicating with other HCPs (not separately reported), and communicating results to the patient/family/caregiver. Mitch Hernandez DO documented in this encounter [facility] 03-12-2024 Nurse Note New Pt.. Discuss recent IgG values Cara Horne LPN [facility] 03-12-2024 Nurse Note New Pt.. Discuss recent IgG values Cara Horne LPN documented in this encounter [facility] 03-09-2024 Telephone encounter Note Spoke with patient's and scheduled. Traci Grubbs [facility] 03-09-2024 Miscellaneous Notes Spoke with patient's and scheduled. Traci Grubbs PSS- please contact patient to schedule a new patient appointment. Mellisa Novak LPN It will be faster if we see him rather than me trying to explain what to do. Please check referral for appropriateness. Cara Horne LPN PATIENT NOTIFIED OF SAME. Did request that results be forwarded to Dr. Sanchez for his review. This encounter forwarded as requested. Please let Lonnie and his know that IgG came back just slightly on the low side. I will place a referral to hem/onc to discuss if any further treatment or work up is needed. documented in this encounter [facility] 03-09-2024 Telephone encounter Note PSS- please contact patient to schedule a new patient appointment. Mellisa Novak LPN [facility] 03-09-2024 Telephone encounter Note It will be faster if we see him rather than me trying to explain what to do. [facility] Work Phone: 03-09-2024 Telephone encounter Note Please check referral for appropriateness. Cara Horne LPN [facility] 03-09-2024 Telephone encounter Note PATIENT NOTIFIED OF SAME. Did request that results be forwarded to Dr. Sanchez for his review. This encounter forwarded as requested. [facility] 03-09-2024 Telephone encounter Note Please let Lonnie and his know that IgG came back just slightly on the low side. I will place a referral to hem/onc to discuss if any further treatment or work up is needed. [facility] 03-02-2024 Telephone encounter Note PATIENT NOTIFIED OF SAME. Will have labs completed 03/06/24 Records released faxed to [facility]. [facility] 03-02-2024 Miscellaneous Notes PATIENT NOTIFIED OF SAME. Will have labs completed 03/06/24 Records released faxed to [facility]. Please return call, let them know hem/onc recommended some follow up blood work to check IGG, IGA, IGM levels. Orders placed. Also can we check on getting the office note from [facility]ays for this? Thank you! Pt called and is notified of providers message and instructions. Pt voices understanding. Pt would like provider to get a hold of hem/onc and see if they would like any additional testing. Please call and advise Pt once provider hears from them. Sofi Rapp RN Please let them know that liver dysfunction can be a cause of low gamma globulin so that is a possibility. I can reach out to hem/onc and see if they recommend any additional testing or referral but with that being the only abnormal on the panel I would not refer at this point. Pt calling back in about the following lab done here on 01/21/24: Gamma Globulin 0.53 - 1.51 g/dL 0.52 Low Pt asking if he will need to get more labs added to his lab work for when he comes in for his doctor appointment. He said [facility] told him to call PCP and ask about his. Pt would like provider to call him back on his cell #. I told him I didn't know if they would get back to him this week. Patient and calls and states that patient had a rash over body that looked like a bullseye. Patient was seen at [facility] where he was tested for lyme disease as well as protein electrophoresis serum. Results are in labs. Patient's Gamma Globulin was at 0.52 which is abnormal low. [facility] had told patient that with the Bullseye rash and abnormal blood test that patient may want to see hematology for this. is asking if provider can advise about this on whether more labs need to be done or should patient see hematology for this? Please review and advise, Traci Jordan RN documented in this encounter [facility] 03-02-2024 Telephone encounter Note Please return call, let them know hem/onc recommended some follow up blood work to check IGG, IGA, IGM levels. Orders placed. Also can we check on getting the office note from [facility] for this? Thank you! [facility] 02-28-2024 Telephone encounter Note Pt called and is notified of providers message and instructions. Pt voices understanding. Pt would like provider to get a hold of hem/onc and see if they would like any additional testing. Please call and advise Pt once provider hears from them. Sofi Rapp RN [facility] 02-28-2024 Telephone encounter Note Please let them know that liver dysfunction can be a cause of low gamma globulin so that is a possibility. I can reach out to hem/onc and see if they recommend any additional testing or referral but with that being the only abnormal on the panel I would not refer at this point. [facility] 02-28-2024 Telephone encounter Note Pt calling back in about the following lab done here on 01/21/24: Gamma Globulin 0.53 - 1.51 g/dL 0.52 Low Pt asking if he will need to get more labs added to his lab work for when he comes in for his doctor appointment. [facility] him to call PCP and ask about his. Pt would like provider to call him back on his cell #. I told him I didn't know if they would get back to him this week. [facility] 02-27-2024 Telephone encounter Note Patient and calls and states that patient had a rash over body that looked like a bullseye. Patient was seen at [facility] where he was tested for lyme disease as well as protein electrophoresis serum. Results are in labs. Patient's Gamma Globulin was at 0.52 which is abnormal low. [facility] had told patient that with the Bullseye rash and abnormal blood test that patient may want to see hematology for this. is asking if provider can advise about this on whether more labs need to be done or should patient see hematology for this? Please review and advise, Traci Jordan RN [facility] 01-20-2024 Instructions Molly Kearns MD - 01/20/2024 12:10 AM EDT -Continue monitoring your blood sugar levels and record any significant changes or patterns. - Continue your current exercise routine, as it helps manage your blood sugar levels. - Continue your current diet, focusing on limiting carbs and including protein. - Continue using the Brenda 2 sensor for blood glucose monitoring. - Refills for Gemfibrozil, Flonase, and potassium pills have been sent to your pharmacy. - Your next appointment is scheduled for six months from now. documented in this encounter [facility] 12-25-2023 Telephone encounter Note Patient has been identified by name and date of : Yes Patient phones for refill(s): Requested Prescriptions Pending Prescriptions Disp Refills loratadine (CLARITIN) 10 mg tablet 90 tablet 3 Sig: Take 1 tablet by mouth once daily. Date of last office visit in primary care: 12/02/2023 Date of next office visit in primary care: 06/22/2024 Please advise. Thank you. Norma Garvey. [facility] 12-25-2023 Miscellaneous Notes Patient has been identified by name and date of : Yes Patient phones for refill(s): Requested Prescriptions Pending Prescriptions Disp Refills loratadine (CLARITIN) 10 mg tablet 90 tablet 3 Sig: Take 1 tablet by mouth once daily. Date of last office visit in primary care: 12/02/2023 Date of next office visit in primary care: 06/22/2024 Please advise. Thank you. Norma Garvey. documented in this encounter [facility] 12-03-2023 Telephone encounter Note PA approved : Authorized from December 02, 2023 to December 01, 2024 Patient was notified Leonora Thomason MA [facility] 12-03-2023 Miscellaneous Notes PA approved : Authorized from December 02, 2023 to December 01, 2024 Patient was notified Leonora Thomason MA Electronic PA completed for freestyle brenda 2 documented in this encounter [facility] 12-02-2023 Telephone encounter Note Electronic PA completed for [employer] brenda 2 [facility] 12-02-2023 History of Present illness Narrative This note was created using [employer] (formerly OpenER[employer]). Subjective Lonnie Denton is a 58 year old male. Patient presents with: Yearly Exam: Labs prior SUBJECTIVE: Lonnie Denton is a 58 year old year old gentleman here today for yearly exam and follow up appointment for review of medical conditions. Patient is a 58-year-old male presenting for a yearly exam and follow-up. Patient is accompanied by his , who provides additional history. Patient has a history of diabetes, heterozygous hemochromatosis, and liver concerns, including a recent discussion about potential autoimmune hepatitis. Patient reports that his blood pressure readings at home are typically in the 120s, with a recent reading of 124/73 this morning. He notes that his blood pressure was elevated to the 160s during a visit to his liver specialist, Dr. Sanchez, in [place], which he attributes to the stress of morning munoz hour traffic. In the office, his blood pressure has been in the 130s. Patient has been managing his diabetes with lifestyle modifications, including walking, and has not needed to use insulin recently. He monitors his blood sugar levels using a Brenda 2 sensor and reports that his A1c is in the 5.7 range. He notes that his blood sugar levels can be unpredictable at times, with readings going up after exercise or when he has not eaten. He has not needed to use mealtime insulin recently, relying on walking to manage his blood sugar levels. Patient has a history of heterozygous hemochromatosis and has been followed by Dr. Sanchez for liver concerns. He has had discussions about potential autoimmune hepatitis, with a positive LULU test and a liver biopsy that was not read by a liver pathologist. Dr. Sanchez has recommended monitoring AST and ALT levels every three months and has discussed a new medication for reversing fibrosis, which patient is hesitant to start due to its newness and cost. Patient's weight has been stable in the 180s to 185 range, with a recent low of 175. He is working on portion control and increasing omega-3 intake through diet and supplements. Patient's provides additional history and helps manage his care. PAST MEDICAL HISTORY 06/04/2008: Allergic rhinitis, cause unspecified Comment: Dr. Linares. No date: Dermatophytosis of the body 06/04/2008: Dysmetabolic syndrome X No date: IFG (impaired fasting glucose) No date: Obesity, unspecified No date: Other and unspecified hyperlipidemia 01/05/2011: Type II or unspecified type diabetes mellitus without mention of complication, not stated as uncontrolled Comment: resolved by August 2015 with no fasting glucose >= 126 or HgA1C>=6.5 No date: Unspecified essential hypertension No date: Unspecified sleep apnea Current Outpatient Medications Medication Sig fluticasone (FLONASE) 50 mcg/actuation nasal spray Use 2 Sprays in each nostril once daily. gemfibrozil (LOPID) 600 mg tablet Take 1 tablet by mouth two times a day. flash glucose scanning reader (FREESTYLE BRENDA 2 READER) 1 Each once daily. Benazepril-hydroCHLOROthiazide 10-12.5 mg per tablet Take 1 tablet by mouth once daily. insulin lispro (HUMALOG KWIKPEN INSULIN) 100 unit/mL Inject 4 Units subcutaneously three times a day before meals. Will titrate up as needed up to 40 units per day (Patient taking differently: Inject 4 Units subcutaneously three times a day before meals. Will titrate up as needed up to 40 units per day 08/16/2023 is taking only as needed per Dr. Kearns 03/2023) Potassium Citrate 15 mEq TbER Take 1 tablet by mouth two times a day. flash glucose sensor (FREESTYLE BRENDA 2 SENSOR) kit Apply new sensor every fourteen (14) days to upper arm. loratadine (CLARITIN) 10 mg tablet Take 1 tablet by mouth once daily. blood sugar diagnostic (FREESTYLE LITE STRIPS) test strip Test blood sugar(s) up to 4 times daily. Dx: Type 2 DM - Uncontrolled E11.65 Insulin: Yes Dispense if reader for Freestyle Brenda 2 can use these test strips insulin glargine (LANTUS SOLOSTAR U-100 INSULIN) 100 unit/mL (3 mL) Inject 10-30 Units subcutaneously daily at bedtime. As directed (Patient not taking: Reported on 05/03/2023) insulin needles, DISPOSABLE, (PEN NEEDLE) 31 gauge x 5/16" Use one needle per dose. 4 per day. CPAP Initiate Auto PAP @ 5-20 cm [...] Review of Systems Objective BP 140/72 Pulse 84 Temp 36.9 C (98.4 F) Resp 16 Ht 177.8 cm (5' 10") Wt 84 kg (185 lb 3 oz) SpO2 98% BMI 26.57 kg/m Last 5 Encounter Wt Readings: Date: Wt: 12/02/2023 84 kg (185 lb 3 oz) 08/16/2023 82.1 kg (181 lb) 06/25/2023 83.9 kg (184 lb 15.5 oz) 04/01/2023 82.1 kg (181 lb) 11/02/2022 80.7 kg (178 lb) No waist measurement recorded Estimated body mass index is 26.57 kg/m as calculated from the following: Height as of this encounter: 177.8 cm (5' 10"). Weight as of this encounter: 84 kg (185 lb 3 oz). Last 5 Encounter BP Readings: Date: BP: 12/02/2023 140/72 08/16/2023 130/60 06/25/2023 166/68 04/01/2023 140/60 11/02/2022 138/72 Physical Exam Vitals reviewed. Constitutional: Appearance: Normal appearance. HENT: Head: Normocephalic. Right Ear: Tympanic membrane, ear canal and external ear normal. Left Ear: Tympanic membrane, ear canal and external ear normal. Mouth/Throat: Mouth: Mucous membranes are moist. Pharynx: Oropharynx is clear. Eyes: Extraocular Movements: Extraocular movements intact. Conjunctiva/sclera: Conjunctivae normal. Neck: Thyroid: No thyromegaly. Vascular: No carotid bruit. Cardiovascular: Rate and Rhythm: Normal rate and regular rhythm. Pulses: Normal pulses. Heart sounds: Normal heart sounds. Pulmonary: Effort: Pulmonary effort is normal. Breath sounds: Normal breath sounds. Abdominal: General: Abdomen is flat. There is no distension. Palpations: Abdomen is soft. There is no mass. Musculoskeletal: Cervical back: Normal range of motion. Skin: General: Skin is warm and dry. Neurological: General: No focal deficit present. Mental Status: He is alert and oriented to person, place, and time. Psychiatric: Attention and Perception: Attention and perception normal. Mood and Affect: Mood and affect normal. Speech: Speech normal. Behavior: Behavior normal. Thought Content: Thought content normal. Cognition and Memory: Cognition normal. Judgment: Judgment normal. Latest Ref Rng 03/25/2023 08/09/2023 11/27/2023 WBC 3.70 - 11.00 k/uL 4.66 4.98 5.55 RBC 4.20 - 6.00 m/uL 5.47 5.39 5.20 Hemoglobin 13.0 - 17.0 g/dL 16.9 16.7 16.2 Hematocrit 39.0 - 51.0 % 48.1 47.6 45.7 MCV 80.0 - 100.0 fL 87.9 88.3 87.9 MCH 26.0 - 34.0 pg 30.9 31.0 31.2 MCHC 30.5 - 36.0 g/dL 35.1 35.1 35.4 RDW-CV 11.5 - 15.0 % 11.6 12.1 11.9 Platelet Count 150 - 400 k/uL 201 198 174 MPV 9.0 - 12.7 fL 11.2 11.1 11.7 Neut% % 55.7 Abs Neut (ANC) 1.45 - 7.50 k/uL 2.77 Lymph% % 33.1 Abs Lymph 1.00 - 4.00 k/uL 1.65 [place]% % 8.4 Abs [place] <0.87 k/uL 0.42 Eosin% % 1.8 Abs Eosin <0.46 k/uL 0.09 Baso% % 0.6 Abs Baso <0.11 k/uL 0.03 Immature Gran % % 0.4 IMMATURE GRANS (ABS) <0.10 k/uL <0.03 NRBC /100 WBC 0.0 Absolute nRBC <0.01 k/uL <0.01 <0.01 <0.01 DTYPE Auto Protein, Total 6.3 - 8.0 g/dL 7.0 7.3 6.8 Albumin 3.9 - 4.9 g/dL 4.9 4.8 4.5 Calcium 8.5 - 10.2 mg/dL 10.1 10.0 Bilirubin, Total 0.2 - 1.3 mg/dL 1.2 1.3 1.1 Alkaline Phosphatase 38 - 113 U/L 70 79 69 AST 14 - 40 U/L 18 20 19 ALT 10 - 54 U/L 16 20 19 Glucose 74 - 99 mg/dL 126 (H) 131 (H) BUN 9 - 24 mg/dL 19 16 Creatinine 0.73 - 1.22 mg/dL 0.98 0.91 Sodium 136 - 144 mmol/L 140 140 Potassium 3.7 - 5.1 mmol/L 4.1 4.3 Chloride 97 - 105 mmol/L 104 105 CO2 22 - 30 mmol/L 27 25 Anion Gap 9 - 18 mmol/L 9 10 eGFR >=60 mL/min/1.73m 91 99 Cholesterol, Total <200 mg/dL 170 152 Triglyceride <150 mg/dL 78 95 HDL Cholesterol >39 mg/dL 42 37 (L) Non HDL Cholesterol <130 mg/dL 128 115 Fasting Time hrs 12 12 VLDL Cholesterol <30 mg/dL 16 19 TC:HDL Ratio <5.10 4.05 4.11 LDL Cholesterol <100 mg/dL 112 (H) 96 LDL:HDL Ratio <2.54 2.67 (H) 2.59 (H) Bilirubin, Conjug <0.2 mg/dL 0.2 (H) 0.3 (H) Iron 41 - 186 ug/dL 193 (H) TIBC 232 - 386 ug/dL 409 (H) Transferrin Saturation 15.0 - 57.0 % 47.2 Hemoglobin A1C 4.3 - 5.6 % 5.6 5.7 (H) 5.7 (H) Estimated Average Glucose mg/dL 114 117 117 PT Sec <13.1 sec 11.1 PT INR 0.9 - 1.3 1.1 Ferritin 30.3 - 565.7 ng/mL 420.0 CRP <0.9 mg/dL <0.3 LULU Scr Qual Negative Negative Legend: (H) High (L) Low Latest Ref Rng 11/07/2021 03/02/2022 06/29/2022 11/14/2022 03/25/2023 Iron 41 - 186 ug/dL 202 (H) 188 (H) 201 (H) 143 193 (H) TIBC 232 - 386 ug/dL 340 401 (H) 391 (H) 225 (L) 409 (H) Transferrin Saturation 15.0 - 57.0 % 59.4 (H) 46.9 51.4 63.6 (H) 47.2 Ferritin 30.3 - 565.7 ng/mL 670.0 (H) 764.0 (H) 764.0 (H) 1,053.0 (H) 420.0 Legend: (H) High (L) Low Assessment and Plan Routine medical exam: - Conducted a comprehensive physical examination including vitals, vision, and auditory assessments. - Discussed the importance of regular follow-ups and lab tests to monitor ongoing conditions. - Educated on the importance of maintaining a healthy lifestyle, including diet and exercise. - Scheduled next routine exam in 6 months. Type 2 diabetes mellitus without complication, with long-term current use of insulin (HCC): - Diabetes is under tight control with an HbA1c of 5.7%. - Patient is managing blood glucose levels primarily through walking and diet, with minimal use of insulin. - Prescribed Brenda 2 sensors for continuous glucose monitoring; refilled prescription for Brenda 2 sensors. - Educated on the importance of regular physical activity and dietary management to maintain blood glucose levels. - Discussed the variability in blood glucose readings and the potential impact of physical activity and cortisol surge in the morning. - Patient advised to continue current management plan and to monitor blood glucose levels regularly. 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 - Lead Android Developer and plaster foreman have advised against further ferritin checks unless clinically indicated. - Continue monitoring AST and ALT levels as per plaster foreman's recommendations. - Educated on the importance of regular follow-ups with hepatology. Essential hypertension: - Blood pressure is well-controlled at home with readings around 120/73 mmHg. - Office readings slightly elevated, likely due to situational factors. - Advised to continue current antihypertensive regimen and monitor blood pressure at home. - Educated on the importance of lifestyle modifications, including stress management and regular physical activity. Fatty liver: - Recent elastography indicated mild fibrosis with a score of 10.4. - AST and ALT levels to be monitored every three months. - Discussed potential new medication for reversing fibrosis; patient to consider after further discussion with plaster foreman. - Educated on the importance of maintaining a healthy diet and regular exercise to manage fatty liver. - Follow-up with plaster foreman Dr. Sanchez in March. Encounter for long-term current use of medication: - Reviewed and refilled prescriptions for Gemfibrozil, Flonase, and potassium pills. - Discussed the use of continuous glucose monitoring and the potential need for a new reader. - Advised to continue current medication regimen and to notify if any issues arise with medication or monitoring devices. Molly Kearns MD documented in this encounter [facility] 11-26-2023 Telephone encounter Note Prescription Refill Information The patient has been identified by name and date of : Yes Caregiver verified no other encounters exist for this prescription request: Yes Caregiver confirmed with patient/requestor that no other refills are due, in the near future, with this provider at this time: Yes The last office visit in the department: 08-16-23 Does the patient have a future office visit with this provider/department: Yes Requested Prescriptions Pending Prescriptions Disp Refills fluticasone (FLONASE) 50 mcg/actuation nasal spray 3 Each 3 Sig: Use 2 Sprays in each nostril once daily. gemfibrozil (LOPID) 600 mg tablet 180 tablet 3 Sig: Take 1 tablet by mouth two times a day. Yaneli Steward November 26, 2023 1:03 PM [facility] 11-26-2023 Miscellaneous Notes Prescription Refill Information The patient has been identified by name and date of : Yes Caregiver verified no other encounters exist for this prescription request: Yes Caregiver confirmed with patient/requestor that no other refills are due, in the near future, with this provider at this time: Yes The last office visit in the department: 08-16-23 Does the patient have a future office visit with this provider/department: Yes Requested Prescriptions Pending Prescriptions Disp Refills fluticasone (FLONASE) 50 mcg/actuation nasal spray 3 Each 3 Sig: Use 2 Sprays in each nostril once daily. gemfibrozil (LOPID) 600 mg tablet 180 tablet 3 Sig: Take 1 tablet by mouth two times a day. Yaneli Steward November 26, 2023 1:03 PM documented in this encounter [facility] 11-08-2023 Telephone encounter Note Images from the original note were not included. Electronic PA rec'd and completed and approved for reader. Pharmacy notified. Prior authorization approved Payer: [employer] [phone] CaseId:[id number];Status:Approved;Rev iew Type:Prior Auth;Coverage Start Date:11/05/2023;Coverage End Date:11/07/2024; Approval Details Authorized from November 05, 2023 to November 07, 2024 Electronic appeal: Not supported View History Medication Being Authorized flash glucose scanning reader (FREESTYLE BRENDA 2 READER) 1 Each once daily. Dispense: 1 Each Refills: 3 Start: 11/05/2023 Class: Normal Diagnoses: Type 2 diabetes mellitus without complication, with long-term current use of insulin (HCC) This order has been released to its destination. To be filled at: e- [facility]/pharmacy #[id number] [place] [address] - [address] [facility] [phone] [id number] [facility] 11-08-2023 Miscellaneous Notes Images from the original note were not included. Electronic PA rec'd and completed and approved for reader. Pharmacy notified. Prior authorization approved Payer: [employer] [phone] CaseId:[id number];Status:Approved;Rev iew Type:Prior Auth;Coverage Start Date:11/05/2023;Coverage End Date:11/07/2024; Approval Details Authorized from November 05, 2023 to November 07, 2024 Electronic appeal: Not supported View History Medication Being Authorized flash glucose scanning reader (FREESTYLE BRENDA 2 READER) 1 Each once daily. Dispense: 1 Each Refills: 3 Start: 11/05/2023 Class: Normal Diagnoses: Type 2 diabetes mellitus without complication, with long-term current use of insulin (HCC) This order has been released to its destination. [facility]: [id number] [place] [address] [address] [facility] [phone] [id number] documented in this encounter [facility] 11-05-2023 Telephone encounter Note Sent. [facility] 11-05-2023 Miscellaneous Notes Sent. Prescription Refill Information The patient has been identified by name and date of : Yes Caregiver verified no other encounters exist for this prescription request: Yes Caregiver confirmed with patient/requestor that no other refills are due, in the near future, with this provider at this time: Yes The last office visit in the department: 08-16-23 Does the patient have a future office visit with this provider/department: Yes Requesting a new Freestyle Brenda 2 [place] to be sent to the [facility] in [place] Patient says he has sensors. Bel Slade November 05, 2023 11:42 AM documented in this encounter [facility] 11-05-2023 Telephone encounter Note Prescription Refill Information The patient has been identified by name and date of : Yes Caregiver verified no other encounters exist for this prescription request: Yes Caregiver confirmed with patient/requestor that no other refills are due, in the near future, with this provider at this time: Yes The last office visit in the department: 08-16-23 Does the patient have a future office visit with this provider/department: Yes Requesting a new [place] 2 [place] to be sent to the [facility] in [place] Patient says he has sensors. Bel Slade November 05, 2023 11:42 AM [facility] Work Phone: 09-26-2023 History of Present illness Narrative Follow up from jun 2023 visit when I concluded: Impression 1 compound heterozygote hemochromatosis without excess iron in the liver. 2 positive auto antibodies with normal liver tests 3 metabolic syndrome with fatty liver 4. Stage 2 hepatic fibrosis with several competing etiologies for this Recommendations: # 1: Corticosteroid treatment at the current time seems unnecessary. Similarly, a new liver biopsy would add little. #2: we will get simple laboratory tests to assure his liver enzymes are normal. These should be repeated quarterly. #3: we will request the October 2022 liver biopsy for review by our pathologist. #4: I will see him again in three months. The main purpose of this is to assure that his liver disease is controlled and to assure that we have established harmony in moving forward. Interval Latest Ref Rng 08/09/2023 Protein, Total 6.3 - 8.0 g/dL 7.3 Albumin 3.9 - 4.9 g/dL 4.8 Calcium 8.5 - 10.2 mg/dL 10.0 Bilirubin, Total 0.2 - 1.3 mg/dL 1.3 Alkaline Phosphatase 38 - 113 U/L 79 AST 14 - 40 U/L 20 ALT 10 - 54 U/L 20 Glucose 74 - 99 mg/dL 131 (H) BUN 9 - 24 mg/dL 16 Creatinine 0.73 - 1.22 mg/dL 0.91 Sodium 136 - 144 mmol/L 140 Potassium 3.7 - 5.1 mmol/L 4.3 Chloride 97 - 105 mmol/L 105 CO2 22 - 30 mmol/L 25 Anion Gap 9 - 18 mmol/L 10 eGFR >=60 mL/min/1.73m 99 Legend: (H) High [facility] read of liver bx = steatohepatitis mild fibrosis and minimal iron Current Outpatient Medications Medication Sig Benazepril-hydroCHLOROthiazide 10-12.5 mg per tablet Take 1 tablet by mouth once daily. insulin lispro (HUMALOG KWIKPEN INSULIN) 100 unit/mL Inject 4 Units subcutaneously three times a day before meals. Will titrate up as needed up to 40 units per day (Patient taking differently: Inject 4 Units subcutaneously three times a day before meals. Will titrate up as needed up to 40 units per day 08/16/2023 is taking only as needed per Dr. Kearns 03/2023) Potassium Citrate 15 mEq TbER Take 1 tablet by mouth two times a day. flash glucose sensor (FREESTYLE BRENDA 2 SENSOR) kit Apply new sensor every fourteen (14) days to upper arm. gemfibrozil (LOPID) 600 mg tablet Take 1 tablet by mouth twice daily. fluticasone (FLONASE) 50 mcg/actuation nasal spray Use 2 Sprays in each nostril once daily. loratadine (CLARITIN) 10 mg tablet Take 1 tablet by mouth once daily. blood sugar diagnostic (FREESTYLE LITE STRIPS) test strip Test blood sugar(s) up to 4 times daily. Dx: Type 2 DM - Uncontrolled E11.65 Insulin: Yes Dispense if reader for Freestyle Brenda 2 can use these test strips insulin glargine (LANTUS SOLOSTAR U-100 INSULIN) 100 unit/mL (3 mL) Inject 10-30 Units subcutaneously daily at bedtime. As directed (Patient not taking: Reported on 05/03/2023) insulin needles, DISPOSABLE, (PEN NEEDLE) 31 gauge x 5/16" Use one needle per dose. 4 per day. CPAP Initiate Auto PAP @ 5-20 cm [...] No current facility-administered medications for this visit. 10.4 CAp 323 FS today Exam: There were no vitals taken for this visit. 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 much iron in liver MetSyn largely controlled Rec: discussed management discussed resmetirom we will discuss again in 6 months 25 min mre than 50% counseling Francisco Sanchez MD documented in this encounter [facility] 09-26-2023 History of Present illness Narrative Patient fasting for 3 hours:Yes Fibroscan was performed on September 26, 2023, by Rebekah Kim LPN and results are interpreted by Jazmín Magallanes PA-C Indication: Liver disease Please refer to get images report for individual readings Number of readings: 10 IQR %: 13 E (kpa): 10.4 CAP: 323 Impression The reading was adequate. FS = 10.4 kPA. The CAP score is 323 and corresponds to steatosis grade of S3. This reading corresponds: A 56% chance of stage 0-2 fibrosis A 43% chance of stage 3-4 fibrosis (advanced fibrosis) A 14% chance of stage 4 fibrosis (cirrhosis).A kPa >20 indicates a high likelihood of stage 4 fibrosis/cirrhosis, consider further testing to confirm. SUDEEP Fry Fibroscan Fibrosis Risk <7 kPA = F0-F2 97%, F3+F4 3%, F4 <1% <10 kPA = F0-F2 91%, F3+F4 9%, F4 1.3% 10-15 kPA = F0-F2 56%, F3+F4 43%, F4 14% >15 kPA = F0-F2 26%, F3+F4 74%, F4 46% Grade CAP value up to 237 dB/M corresponds to S0 (< 10 % Fat) CAP value between (238 - 258 dB/M) corresponds to S1 (>/= 11 % Fat) CAP value between (259 - 289 dB/M) corresponds to S2 (>/= 33 % Fat) CAP value > 290dB/M corresponds to S3 (>/= 67 % Fat) stage 0 ( S0:< 10 % steatosis) stage 1 (>/= S1: 11%-33% steatosis) stage 2 (>/= S2: 34%-66% steatosis) stage 3 (>/= S3: > 66% steatosis) Reference Afshin Y, Hector Q, Afshin T, Sofia J, Afshin H, Jadon T. Controlled attenuation parameter for assessment of hepatic steatosis grades: a diagnostic meta-analysis. Int J Clin Exp Med. 2015 Jan 15;8(10):38388-07. PMID: 42815345; PMCID: [id number]. Luly M, Tori JOHNY, Cheryle M, Rosemary F, Destiny J, Roselyn O, Alyssa F, Zion M, Bethany G, Geoffrey A, Matt E, Kala L, Janay G, Nydia A, Malia U, Deepa S, Hawa P, Yin V, de Mirela V, Bao M, April PINEDA. Refining the Baveno elastography criteria for the definition of compensated advanced chronic liver disease. J Hepatol. 2020;74(5):9120-4193. doi: 10.1016/j.jhep.2020.11.050. Epub 2019Mar 30. PMID: 90779058. documented in this encounter [facility] 09-24-2023 Telephone encounter Note Nurse sent MCM to the patient to answer their question. Authorization is currently pending Jaki Lebron RN September 24, 2023 9:33 AM [facility] 09-24-2023 Miscellaneous Notes Nurse sent MCM to the patient to answer their question. Authorization is currently pending Jaki Lebron RN September 24, 2023 9:33 AM Patient called in requesting that the prior authorization is in for his procedure prior to his Dr. Sanchez appointment Please review and advise Matthieu Gamboa Assistive Technology Trainer iain documented in this encounter [facility] 09-24-2023 Telephone encounter Note Patient called in requesting that the prior authorization is in for his procedure prior to his Dr. Sanchez appointment Please review and advise Matthieu Gamboa Assistive Technology Trainer ll [facility] 08-16-2023 History of Present illness Narrative SUBJECTIVE Lonnie Denton is a 57 year old male here today for a check up on his medical problems. Chief Complaint Patient presents with: Recheck HPI Lonnie Denton is a 57 year old male. He is an established patient of Molly Kearns MD. Here today for a routine follow up. History of DM, HTN. Nothing different since last visit. Last visit they discussed getting off of insulin. He has significantly reduced his insulin use since March. Following with hepatology at [facility]. LULU was positive. Concerned about autoimmune hepatitis. Had second opinion with [facility]. Reviewed slides from [facility]. Not autoimmune hepatitis. Fatty liver. His medications were reviewed today and his list is now up to date. Medications Current Outpatient Medications Medication Sig insulin lispro (HUMALOG KWIKPEN INSULIN) 100 unit/mL Inject 4 Units subcutaneously three times a day before meals. Will titrate up as needed up to 40 units per day (Patient taking differently: Inject 4 Units subcutaneously three times a day before meals. Will titrate up as needed up to 40 units per day 08/16/2023 is taking only as needed per Dr. Kearns 03/2023) Potassium Citrate 15 mEq TbER Take 1 tablet by mouth two times a day. gemfibrozil (LOPID) 600 mg tablet Take 1 tablet by mouth twice daily. fluticasone (FLONASE) 50 mcg/actuation nasal spray Use 2 Sprays in each nostril once daily. loratadine (CLARITIN) 10 mg tablet Take 1 tablet by mouth once daily. Methylcellulose, Laxative, 500 mg tab Take by mouth. Fish Oil-DHA-EPA 1,200-144-216 mg cap Take 2 capsules by mouth once daily. MULTIVITAMIN TAB Take one(1) tablet daily. Benazepril-hydroCHLOROthiazide 10-12.5 mg per tablet Take 1 tablet by mouth once daily. flash glucose scanning reader (FREESTYLE BRENDA 2 READER) Use to check blood sugar at least four (4) times daily. flash glucose sensor (FREESTYLE BRENDA 2 SENSOR) kit Apply new sensor every fourteen (14) days to upper arm. blood sugar diagnostic (FREESTYLE LITE STRIPS) test strip Test blood sugar(s) up to 4 times daily. Dx: Type 2 DM - Uncontrolled E11.65 Insulin: Yes Dispense if reader for Freestyle Brenda 2 can use these test strips insulin glargine (LANTUS SOLOSTAR U-100 INSULIN) 100 unit/mL (3 mL) Inject 10-30 Units subcutaneously daily at bedtime. As directed (Patient not taking: Reported on 05/03/2023) insulin needles, DISPOSABLE, (PEN NEEDLE) 31 gauge x 5/16" Use one needle per dose. 4 per day. CPAP Initiate Auto PAP @ 5-20 cm of water with humidification. Mask (per patient preference) optional chin strap (if indicated) , filters, tubing, humidifier and lifetime supplies. CPAP Needs new APAP @ cm of water with humidification. Mask (per patient preference) optional chin strap (if indicated) , filters, tubing, humidifier and lifetime supplies. Diagnosis: SOLO G47.33 No current facility-administered medications for this visit. ALLERGIES No Known Allergies ACTIVE PROBLEM LIST Hemochromatosis Associated With Compound Heterozygous Mutation in Hfe Gene (Hcc) - 10/26/2022 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 - 05/21/2018 Nicole (Nonalcoholic Steatohepatitis) - 05/14/2018 Elevated Ferritin - 05/14/2018 Type 2 Diabetes Mellitus Without Complication, Without Long-Term Current Use of Insulin ([facility]) - 03/26/2017 Allergic Rhinitis - 06/04/2008 Comment: Dr. Linares. Nonspecific Abnormal Results of Liver Function Study - 06/04/2008 Essential Hypertension Mixed Hyperlipidemia Social History Tobacco Use Smoking status: Never Smokeless tobacco: Never Substance Use Topics Alcohol use: No Drug use: No Review of Systems Constitutional: Negative. Respiratory: Negative. Cardiovascular: Negative. OBJECTIVE BP 130/60 Pulse 77 Wt 181 lb (82.1kg) SpO2 98% Physical Exam Vitals and nursing note reviewed. Constitutional: General: He is awake. He is not in acute distress. Appearance: Normal appearance. He is well-developed and well-groomed. He is not ill-appearing, toxic-appearing or diaphoretic. HENT: Head: Normocephalic. Right Ear: External ear normal. Left Ear: External ear normal. Nose: Nose normal. Eyes: General: Vision grossly intact. Conjunctiva/sclera: Conjunctivae normal. Pupils: Pupils are equal, round, and reactive to light. Neck: Vascular: No JVD. Trachea: Trachea normal. Cardiovascular: Rate and Rhythm: Normal rate and regular rhythm. Pulses: Normal pulses. Heart sounds: Normal heart sounds. No murmur heard. Pulmonary: Effort: Pulmonary effort is normal. No accessory muscle usage, prolonged expiration or respiratory distress. Breath sounds: Normal breath sounds. Musculoskeletal: Cervical back: Neck supple. Feet: Right foot: Protective Sensation: 3 sites tested. 3 sites sensed. Left foot: Protective Sensation: 3 sites tested. 3 sites sensed. Comments: Diabetic Foot Exam: Feet:Shoes and socks removed, Are you having foot pain "no", No deformities, ulcers, calluses, normal distal pulses, and sensitive to 10 gm monofilament Skin: General: Skin is warm and dry. Capillary Refill: Capillary refill takes less than 2 seconds. Neurological: General: No focal deficit present. Mental Status: He is alert and oriented to person, place, and time. Mental status is at baseline. Psychiatric: Attention and Perception: Attention and perception normal. Mood and Affect: Mood and affect normal. Speech: Speech normal. Behavior: Behavior normal. Behavior is cooperative. Thought Content: Thought content normal. Cognition and Memory: Cognition and memory normal. Judgment: Judgment normal. ASSESSMENT/PLAN: 1. Type 2 diabetes mellitus without complication, with long-term current use of insulin ([facility]) - ICD9: 250.00, V58.67, ICD10: E11.9, Z79.4 (primary diagnosis) - Controlled - Continue current medications - Counseled on healthy diet and regular exercise - Discussed need for and benefit of weight loss. BMI 25.97 kg/(m^2) - FREESTYLE BRENDA 2 READER 2. Essential hypertension - ICD9: 401.9, ICD10: I10 - Controlled - Continue current medications - Recommend home blood pressure monitoring, to bring results to next visit - Encouraged sodium restriction, DASH or Mediterranean diet - Recommend regular aerobic exercise - BENAZEPRIL 10 MG-HYDROCHLOROTHIAZIDE 12.5 MG TABLET 3. 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 Fatty liver - ICD9: 571.8, ICD10: K76.0 Following with hepatology. 5. Encounter for immunization - ICD9: V03.89, ICD10: Z23 - PNEUMOCOCCAL VACCINE, 20 VALENT (PREVNAR 20) Portions of this note have been entered by ancillary staff. I have reviewed and when necessary edited, so that they are an adequate record of my encounter with this patient Please note that parts of this document were created using voice recognition software and therefore may contain grammatical errors. Patient verbalizes understanding of instructions from today's visit and in agreement with treatment plan. Questions answered. Agrees to call the office if questions, concerns of issues with acute symptoms not improving or if they worsen. See diagnoses and orders for additional plan(s). Allergies and medications were reviewed, list was updated, and refills given if needed. Past medical, surgical, social, and family history reviewed and updated as appropriate. Encouraged proper diet & exercise as well as compliance with taking medications. Age-appropriate health preventative measures were discussed. Return if symptoms worsen or fail to improve, for Keep next scheduled appointment.. eJan Sylvester APRN-RUCHI documented in this encounter [facility] 08-05-2023 Miscellaneous Notes Canceled as requested one set of labs.The other set of labs would not let me cancel, but set date for expiration 08/21/23. Does not have to have drawn even if is a standing order. Patient calls and is asking if Iron and Ferritin labs can be discontinued. Per patient Dr. Sanchez Entertainment Usher had told patient that lab values would not be accurate due to hemochromatosis. Please review and advise, Traci Jordan RN documented in this encounter [facility] 06-07-2023 Miscellaneous Notes Order deleted as requested by patient Consult placed. I do not see an active order for hepatitis panel. Did he want to cancel CBC iron and ferritin? Pt called for the followin.referral to [facility] gastro to see Dr. Francisco Sanchez Apt has been booked. Need referral to be approved by his insurance. Apt is 3-5-24 dx Autoimmune hepatitis. 2.pt asking to have the lab for autoimmune hep be removed form his list of labs to be done. Pt reports he had this done at [facility]. Wants to make sure when he comes in to get his standing orders done that this is not done again. Liv Cartagena LPN documented in this encounter [facility] 03-23-2023 Miscellaneous Notes Spoke with patient. Given [...] Traci Jordan RN documented in this encounter [facility] 11-14-2022 Miscellaneous Notes Pt calling and asking if we could please fax lab results to Dr. Sarmiento's office at [phone]. They see that the lab report is back. Also given Dr. Kearns results and instructions. Pt verbalizes understanding. Faxing lab results to Dr. Sarmiento now. Let them know CMP and CBC are done since can do here at [facility] but rest if labs still in process since sent to [facility] lab. I pulled up CMP and CBC with results going back to 11/07/21 to fax as requested to Dr. Zavala. Noted that potassium is a little low at 3.5 (improved from 3.1 at [facility]) LFTs showed elevated of total bilirubin and Alk phos and AST and ALT. Last bilirubin at [facility] was 10.60 on 10/22 Albumin was 2.8 Alk Phos 317 ALT 755 AST 579 Added result note--make sure patient able to see. Can check in a month or so to make sure continuing to improve; will see what rest of labs show before deciding when to get next labs Patient Romina calling is going to do lab work tomorrow morning. He had seen Dr Sarmiento and he wanted LFT's done. Since PCP has order for CMP already asking for the results when comes back to be faxed to Dr Sarmiento office at [phone]. is asking if my chart message could be sent to let them know the CMP had been faxed please. documented in this encounter [facility] 10-26-2022 Instructions Molly Kearns MD - 10/26/2022 3:58 PM EDT Lantus [...] to stay on. documented in this encounter [facility] 10-26-2022 History of Present illness Narrative This note was created using BAASBOXriter. Subjective Lonnie Denton is a 56 year old male. HISTORY Lonnie Denton is a 56 year old gentleman [...] needles, DISPOSABLE, (PEN NEEDLE) 31 gauge x 09/04" Use one needle per dose. 4 per [...] for this visit. ALLERGIES Allergen Reactions Melanie Crowe [Other] FAMILY HISTORY Problem Relation Age of [...] complication, with long-term current use of insulin ([facility]) E11.9 flash glucose scanning reader (FREESTYLE BRENDA 2 READER) Z79.4 flash glucose sensor (FREESTYLE BRENDA 2 SENSOR) kit 2. Hemochromatosis associated with compound heterozygous mutation in HFE gene ([facility]) E83.110 3. Elevated ferritin R79.89 4. Autoimmune hepatitis treated with steroids ([facility]) K75.4 5. Essential hypertension I10 Above issues [...] up (whether with GI at [facility] or within\\ [facility]) Work on getting CGM to help with glycemic control. Adjust meds as indicated. Molly Kearns MD documented in this encounter [facility] 10-25-2022 History of Present illness Narrative Patient presents for self injection [...] Ninoska Odonnell LPN documented in this encounter [facility] 10-24-2022 Miscellaneous Notes Spoke with patient's . Given message from provider's office regarding Insulin scripts. Scheduled appointment with [place] Nurse for Insulin teaching on 10/25. Scheduled [...] or nurse or DM nurse or DM VENEER JOINTER RETURNER for teaching if willing to give self insulin titrating down the prednisone. Might also be high s/p acute pancreatitis. If knows how to give self insulin (though I have no record that ever gave self insulin), can send Rx for long acting plus short acting. I sent the prescriptions for insulin so that may pickling drum operator the RXs whether or not needs DM teaching on insulin use. Can bring to appointment with one of the above noted providers to help with teaching if needed. Might just need short term while getting off prednisone, but not sure given recent pancreatitis whether might need some insuline for a while during recovery from that. Also, check [facility] for the pathology report on the biopsy [...] review hospital labs at that time? Steph Garsia RN Pt was at [facility] 10/18 - 10/23/22. Dx'd with acute cholecystitis, pancreatitis & hepatitis. - Pt's (pt got on phone also) reports pt is home resting now. Reports his skin color has a very slight improvement, slightly less yellow. Same with eyes. - Stool was vaalos in color this am. - New meds: [...] Fanny Gabriel LPN documented in this encounter [facility] 10-23-2022 Discharge summary Note Date/Time October 23, 2022 8:12am [facility] Medical Records Department [address] [place] [address] Discharge Summary 10/23/22 0810 MR#: [id number] Acct: [id number] Name: LONNIE MORA Rep #:[id number] : 1965 56 From: Bryson hoyt MD PCP: Dr. Molly Kearns MD Status:AD M IN [facility] [facility] [id number] Prov[place] Date of Admission: 10/18/22 Primary Care Physician: Dr. Molly Kearns MD Consultations 10/19/22 07:49 Consult: Gastroenterology Routine Consulting Provider: [facility] Reason for Consult: Progressive bili elevation EMERGENT Consult: No MD Notified: Yes Date Notified: 10/19/22 Time Notified: 07:49 Method of Notification: Text 10/22/22 08:58 Consult: Interventional Radiology Routine Consulting Provider: Mao Yadav Reason for Consult: LIVER BIOPSY EMERGENT Consult: Yes Notified: Yes Date Notified: 10/22/22 Time Notified: 08:58 Method of Notification: Verbal Reason For Visit: ACUTE CHOLECYSTITIS WITH PANCREATITIS Diagnosis Discharge Diagnosis (1) Acute cholecystitis: Status: Acute Code(s): K81.0 - Acute cholecystitis (2) Common bile duct dilatation: Status: Acute Code(s): K83.8 - Other specified diseases of biliary tract (3) Hyperbilirubinemia: Status: Acute Code(s): E80.6 - Other disorders of bilirubin metabolism (4) Transaminitis: Status: Acute Code(s): R74.01 - Elevation of levels of liver transaminase levels (5) Acute hepatitis: Status: Acute Code(s): B17.9 - Acute viral hepatitis, unspecified Plan: Patient's LFTs remain the same. GI ordered a panel and suspects hepatitis. Continue regular diet and recheck labs tomorrow. Bryson Merritt MD Pager: [facility] [address] [place] [address], [address] [place] [address] Office: (5) Diabetes: Status: Chronic Code(s): E11.9 - Type 2 diabetes mellitus without complications Medications at Discharge Home Medications ketorolac 10 mg tablet 10 mg PO Q6H PRN Pain Score 4-10 #14 tabs 06/04/20 ondansetron 4 mg disintegrating tablet 4 mg PO Q8H PRN PRN Nausea #10 tabs 06/04/20 tamsulosin 0.4 mg capsule 0.4 mg PO DAILY #7 caps 06/04/20 benazepril 10 mg-hydrochlorothiazide 12.5 mg tablet 0.5 tab PO DAILY 06/07/20 flaxseed oil 1,000 mg capsule 1,000 mg PO DAILY 06/07/20 fluticasone propionate 50 mcg/actuation nasal spray,suspension 1 spray NASAL DAILY 06/07/20 gemfibrozil 600 mg tablet 600 mg PO BIDAC 06/07/20 loratadine 10 mg tablet 10 mg PO DAILY 06/07/20 multivitamin 1 ea PO DAILY 06/07/20 ciprofloxacin HCl 500 mg tablet 500 mg PO BID #6 tabs 06/09/20 omega 1-tjj-pcj-fish oil 1,200 mg (144 mg-216 mg) capsule (Fish Oil) cap PO general health 10/18/22 tramadol 50 mg tablet 50 mg PO Q6H PRN pain #10 tabs 10/22/22 Hospital Course Operations cholecystecomy Summary of Care Provided Hospital Course: Patient was admitted with abdominal pain and underwent laparoscopic cholecystectomy. Subsequently the patient's LFTs increased and GI was consulted. The patient underwent liver biopsy. Patient is feeling comfortable this morning and will be discharged home and follow-up with Dr. Sarmiento and Dr. Rubalcava Physical Exam Const oriented x3 and no apparent distress Cardio regular rate and regular rhythm GI soft to palpation and non-tender Weight / BMI Weight Weight: 188 lb 4.8 oz Body Mass Index (BMI) 27.0 ABG / Lab / Microbiology Data 10/22/22 05:40 10/22/22 05:40 Laboratory: Laboratory Results - last 24 hr 10/22/22 05:40: ESR 47 H 10/22/22 11:21: POC Glucose 452 H* 10/22/22 15:11: POC Glucose 379 H Radiography Diagnostic Testing: Radiology Impression Biopsy CT 10/22/22 00:00 IMPRESSION: 1. CT directed core needle biopsy of the liver, using CT image guidance with image documentation as described. 2. Conscious Sedation protocol utilized with independent monitoring. Electronically Signed: Mao Yadav MD at 14:13 EDT , D/C Instructions Discharge Diet: No restrictions May shower in (days): 1 Ice area for (Minutes): 20 Call your doctor if your incision/area has: Continuous Slow Oozing, Increased Pain/ Swelling, Increased Redness, Foul Smelling Discharge and Swelling at the incision site Call your doctor if you observe: Fever of 101 or Higher Cleanse incision/area with: Soap & Water Additional Instructions: Follow-up with Dr. Sarmiento, GI Please Follow Up With: Darrius Rubalcava MD When: 2 weeks postop Meaningful Use Info Meaningful Use Diagnoses (Choose all that apply): None applicable Discharge Plan Admission Admit Date/Time: 10/18/22 18:59 Primary Reason for Your Visit: Acute cholecystitis with acute hepatitis Attending Provider: Darrius Rubalcava Primary Care Provider: Molly Kearns Consulting Providers: Mao Yadav Instructions Patient Instructions: ISRAEL MAHER Biopsy Liver Dc, ISRAEL MAHER Procedural Sedation Discharge Orders/Prescriptions Prescriptions: New tramadol 50 mg tablet 50 mg PO Q6H PRN (Reason: pain) Qty: 10 0RF Continued ketorolac 10 MG tablet 10 mg PO Q6H PRN (Reason: Pain Score 4-10) Qty: 14 0RF ondansetron 4 MG tablet 4 mg PO Q8H PRN PRN (Reason: Nausea) Qty: 10 0RF tamsulosin 0.4 MG capsule 0.4 mg PO DAILY Qty: 7 0RF multivitamin 1 EACH tablet 1 ea PO DAILY flaxseed oil 1,000 MG capsule 1,000 mg PO DAILY gemfibrozil 600 MG tablet 600 mg PO BIDAC fluticasone propionate 1 SPRAY spray,suspension 1 spray NASAL DAILY loratadine 10 MG tablet 10 mg PO DAILY benazepril-hydrochlorothiazide 1 EACH tablet 0.5 tab PO DAILY ciprofloxacin HCl 500 MG tablet 500 mg PO BID Qty: 6 0RF omega 8-ecp-sgj-fish oil [Fish Oil] 1,200 (144-216) mg capsule PO Referrals / Follow Up: Molly Kearns MD [Primary Care Provider] - Darrius Rubalcava MD [Med Staff - Active Staff] - Within 2 Weeks Friend,DO Ranjith [Med Staff - Active Staff] - Within 2 Weeks Disposition Disposition (needs filled in before D/C Order can be placed): Home, Self Care 10/23/22 0812 <Electronically signed by Bryson Merritt MD> Cosigner Signature (if applicable): CC: Dr. Bryson Merritt MD; Dr. Molly Kearns MD~ Signed [facility] Work Phone: 1(678) 318-465507-03-2023 Progress note Author Darrius Rubalcava [facility] October 22, 2022 11:29am Note Date/Time October 22, 2022 11:26 am [facility] Medical Records Department [address] [place] [id number] Progress Note - Surgery 10/22/22 1120 MR#: [id number] Acct: [id number] Name: LONNIE MORA Rep #:[id number] : 1965 56 From: Darrius Crowe PCP: Dr. Molly Kearns MD Status:AD M IN Location: [place] [address] Subjective Subjective Patient seen and examined during AM rounds. Patient is resting in bed. He reports that he is feeling much better. I held a lengthy conversation with he and his regarding several questions that he had from over the weekend due to observations of increased blood pressures, increased heart rates, and some lethargy particularly the first day after surgery. Objective Data Objective Data Vital Signs: Vital Signs Temp Pulse Resp BP Pulse Ox O2 Del Method O2 Flow Rate 98.1 F 77 16 141/73 H 95 Room Air 8 10/22/22 11:13 10/22/22 11:13 10/22/22 11:13 10/22/22 11:13 10/22/22 11:13 10/22/22 11:13 10/19/22 16:00 Oxygen Flow Rate (L/min) 8 Oxygen Delivery Method Room Air Weight: 188 lb 4.8 oz Body Mass Index (BMI) 27.0 Intake & Output: Intake and Output for Last 24 Hours 10/20/22 10/21/22 10/22/22 23:59 23:59 23:59 Intake Total 1264 / 1514 821.85 / 1071.85 500 / 500 Output Total 800 / 800 Balance 464 / 714 821.85 / 1071.85 500 / 500 Lab / Micro Data 10/22/22 05:40 10/22/22 05:40 Labs: Laboratory Results - last 24 hr 10/22/22 05:40: WBC 10.5, RBC 4.52 L, Hgb 14.1, Hct 40.7, MCV 90.0, MCH 31.2, MCHC 34.6, RDW Std Deviation 41.0, RDW Coeff of Rodrigue 12.3, Plt Count 182, MPV 11.9, Immature Gran % (Auto) 0.500, Neut % (Auto) 86.4 H, Lymph % (Auto) 6.3 L, [place] % (Auto) 6.7, Eos % (Auto) 0.0, Baso % (Auto) 0.1, Absolute Neuts (auto) 9.1 H, Absolute Lymphs (auto) 0.66 L, Nucleated RBC % 0, Sodium 134 L, Potassium3.1 L, Chloride 100, Carbon Dioxide 29.0, Anion Gap 5, BUN 21 H, Creatinine 0.82, Estim Creat Clear Calc 105.10, Est GFR (MDRD) Af Amer 126, Est GFR (MDRD) Non-Af 104, BUN/Creatinine Ratio 25.7 H, Glucose 275 H, Calcium 8.9, Total Bilirubin 10.60 H, AST 579 H, ALT 755 H, Alkaline Phosphatase 317 H, C-React Prot Ext Range 52.30 H, Total Protein 6.0 L, Albumin 2.8 L, Globulin 3.2, Albumin/Globulin Ratio 0.9 Radiography Diagnostic Testing: Radiology Impression Cholangiogram 10/19/22 14:00 IMPRESSION: Unremarkable intraoperative cholangiogram. Electronically Signed: Mao Yadav MD at 15:18 EDT , Physical Exam Const oriented x3 and no apparent distress Constitutional Narrative: Persistent jaundice Resp normal respiratory effort GI GI Narrative: Diffuse yellowing of the skin including abdomen. Operative dressings remain intact with minimal strikethrough: Removed there is dried blood between the Steri-Strips?particularly in the subxiphoid port position. Otherwise, the port sites are unremarkable without surrounding erythema or drainage. The patient has tenderness as expected with just mild discomfort near his port sites at the abdominal wall. Assessment & Plan Assessment/Plan (1) Acute cholecystitis: PLAN: 56-year-old male postoperative day 3 for cholecystectomy with intraoperative cholangiography. Patient denies any of the abdominal discomfort with which she presented and appears to simply exhibit expected tenderness related to his incisions. He remains jaundiced with increased bilirubin. GI consulted and they are suspecting autoimmune hepatitis plus minus hemochromatosis. (2) Common bile duct dilatation: PLAN: Patient with mildly dilated common bile duct without evidence of ductal obstruction on cholangiogram. On going work-up (3) Hyperbilirubinemia: PLAN: Now manifesting as jaundice. Bilirubin appears to have stabilized over 10. As above, autoimmune hepatitis with possible hemochromatosis suspected. Patient is pending liver biopsy per GI today. Continue to hold acetaminophen. (4) Transaminitis: PLAN: LFTs are overall downtrending, but bilirubin remains elevated. Liver work- up ongoing with liver biopsy pending per GI today. (5) Acute hepatitis: PLAN: Probable autoimmune hepatitis. Work-up ongoing. Pending liver biopsy this afternoon. However, GI is stated that if patient remains clinically well remainder of work-up could be conducted as an outpatient. (6) Diabetes: PLAN: Patient with increasing blood glucose levels?likely owing to multiple factors including acute stress response as well as exogenous steroids for acute hepatitis. Given current glucose levels are just under 300, I have discussed initiating low-dose insulin sliding scale with patient to try to optimize his postoperative outcome. Plans also discussed with gastroenterology. Both patient and gastroenterology are in favor of this transition so order has been placed for initiation of low-dose insulin sliding scale. Hopefully, patient proved glucose control once stress response is normalized and he is able to discontinue steroid therapy. Charges/Coding Visit Charges Inpatient E&M: 30001 Subs Hosp L2 10/22/22 1129 <Electronically signed by Darrius Rubalcava MD> Cosigner Signature (if applicable): CC: ~ Signed [facility] Work Phone: 1(858) 488-520407-02-2023 Progress note Author Ranjith Friend [facility] October 21, 2022 5:00pm Note Date/Time October 21, 2022 5:00p m [facility] Medical Records Department [address] [place] [address] Progress Note - GI 10/21/22 1657 MR#: [id number] Acct: [id number] Name: LONNIE MORA Rep #:[id number] : 1965 56 From: Ranjith Sarmiento DO PCP: Dr. Molly Kearns MD Status:AD M IN Location: [facility] [id number] Subjective Subjective Patient is doing a lot better today. He is tolerating a diet. His abdominal pain is down to 4 out of 10. He did have some bloating and some mild cramping that got better with nonsteroidal therapy. He has been afebrile. Objective Data Objective Data Vital Signs: Vital Signs Temp Pulse Resp BP Pulse Ox O2 Del Method O2 Flow Rate 97.8 F 94 16 140/77 H 96 Room Air 8 10/21/22 13:42 10/21/22 13:42 10/21/22 13:42 10/21/22 13:42 10/21/22 13:42 10/21/22 13:42 10/19/22 16:00 Oxygen Flow Rate (L/min) 8 Oxygen Delivery Method Room Air Weight: 188 lb 4.8 oz Body Mass Index (BMI) 27.0 Intake & Output: Intake and Output for Last 24 Hours 10/19/22 10/20/22 10/21/22 23:59 23:59 23:59 Intake Total 4529.25 / 4529.25 1264 / 1514 771.35 / 771.35 Output Total 800 / 800 Balance 4529.25 / 4529.25 464 / 714 771.35 / 771.35 Lab / Micro Data 10/21/22 05:36 10/21/22 05:36 Labs: Laboratory Results - last 24 hr 10/20/22 20:35: ESR 29 H, PT 15.9 H, INR 1.3, APTT 32.1, Lactic Acid 1.1, Iron 90, TIBC 375, Iron Saturation 24.0, Ferritin 10798 H, Ammonia 29.0, Lactate Dehydrogenase 528 H, Total Creatine Kinase 126, C-React Prot Ext Range 88.60 H 10/21/22 05:36: WBC 9.3, RBC 4.65, Hgb 14.6, Hct 41.4, MCV 89.0, MCH 31.4, MCHC 35.3, RDW Std Deviation 40.9, RDW Coeff of Rodrigue 12.5, Plt Count 167, MPV 12.0, Immature Gran % (Auto) 0.600, Neut % (Auto) 91.9 H, Lymph % (Auto) 4.8 L, [place] %(Auto) 2.6, Eos % (Auto) 0.0, Baso % (Auto) 0.1, Absolute Neuts (auto) 8.6 H, Absolute Lymphs (auto) 0.45 L, Nucleated RBC % 0, Differential Comment SCANNED, Sodium 134 L, Potassium 3.5, Chloride 100, Carbon Dioxide 26.0, Anion Gap 8, BUN13, Creatinine 0.78, Estim Creat Clear Calc 110.49, Est GFR (MDRD) Af Amer 132, Est GFR (MDRD) Non-Af 109, BUN/Creatinine Ratio 16.6, Glucose 289 H, Calcium 9.0, Total Bilirubin 10.90 H, AST 646 H, ALT 802 H, Alkaline Phosphatase 244 H, Total Protein 6.1 L, Albumin 2.8 L, Globulin 3.3, Albumin/Globulin Ratio 0.8 L Radiography Diagnostic Testing: Radiology Impression Cholangiogram 10/19/22 14:00 IMPRESSION: Unremarkable intraoperative cholangiogram. Electronically Signed: Mao Yadav MD at 15:18 EDT , Physical Exam Const oriented x3 Resp normal respiratory effort GI soft to palpation and non-tender Assessment & Plan Assessment/Plan (1) Acute hepatitis: PLAN: His transaminitis is improving drastically. He has severe hyper ferritin anemia that is secondary to acute liver injury in the setting of already hyper ferritin anemia. He is getting treatment for autoimmune hepatitis and ischemic hepatitis with steroids and N-acetylcysteine which he completed. He will continue on steroid therapy at 0.5 mg/kg dose per day and to be transitioned to oral therapy after he undergoes liver biopsy. Work-up for IgG associated cholangiopathy/pancreatitis along with IgG associated hepatitis and pancreatitisis pending. He will need to get liver biopsy tomorrow. N.p.o. after midnight. (2) Hemochromatosis: PLAN: His ordered some labs and that did show a ferritin level of 767 with a transferrin saturation of 51% which meets the criteria for secondary or primary hemochromatosis. Being that he does have joint swelling, arthralgia, diabetes he does reach criteria for hemochromatosis. He will need to undergo liver biopsy to see if we can transition him off of steroids as an outpatient and start azathioprine versus deferoxamine and or phlebotomy. I had a long talkwith the family and they are okay with the plan. I will send genetic analysis for hemochromatosis. Charges/Coding Visit Charges Inpatient E&M: 52740 Subs Hosp L3 10/21/22 1700 <Electronically signed by Ranjith Friend DO> Cosigner Signature (if applicable): CC: ~ Signed [facility] Work Phone: 1(493) 171-709007-02-2023 Progress note Author Bryson Merritt [facility] October 21, 2022 9:35am Note Date/Time October 21, 2022 9:35a m [facility] Medical Records Department [address] [place] [address] Progress Note - Surgery 10/21/22 0934 MR#: [id number] Acct: [id number] Name: LONNIE MORA Rep #:[id number] : 1965 56 From: rByson hoyt MD PCP: Dr. Molly Kearns MD Status:AD M IN Location: [facility] [id number] Subjective Subjective Patient says he feels well. He tolerated some regular diet yesterday. He is only complaining of incisional pain. He denies any nausea or vomiting. Objective Data Objective Data Vital Signs: Vital Signs Temp Pulse Resp BP Pulse Ox O2 Del Method O2 Flow Rate 97.5 F L 94 16 147/76 H 95 Room Air 8 10/21/22 08:00 10/21/22 08:00 10/21/22 08:00 10/21/22 08:00 10/21/22 08:00 10/21/22 08:00 10/19/22 16:00 Oxygen Flow Rate (L/min) 8 Oxygen Delivery Method Room Air Weight: 188 lb 4.8 oz Body Mass Index (BMI) 27.0 Intake & Output: Intake and Output for Last 24 Hours 10/19/22 10/20/22 10/21/22 23:59 23:59 23:59 Intake Total 4529.25 / 4529.25 1264 / 1514 250 / 250 Output Total 800 / 800 Balance 4529.25 / 4529.25 464 / 714 250 / 250 Lab / Micro Data 10/21/22 05:36 10/21/22 05:36 Labs: Laboratory Results - last 24 hr 10/20/22 07:33: Differential Comment SCANNED 10/20/22 20:35: ESR 29 H, PT 15.9 H, INR 1.3, APTT 32.1, Lactic Acid 1.1, Iron 90, TIBC 375, Iron Saturation 24.0, Ferritin 00849 H, Ammonia 29.0, Lactate Dehydrogenase 528 H, Total Creatine Kinase 126, C-React Prot Ext Range 88.60 H 10/21/22 05:36: WBC 9.3, RBC 4.65, Hgb 14.6, Hct 41.4, MCV 89.0, MCH 31.4, MCHC 35.3, RDW Std Deviation 40.9, RDW Coeff of Rodrigue 12.5, Plt Count 167, MPV 12.0, Immature Gran % (Auto) 0.600, Neut % (Auto) 91.9 H, Lymph % (Auto) 4.8 L, [place] %(Auto) 2.6, Eos % (Auto) 0.0, Baso % (Auto) 0.1, Absolute Neuts (auto) 8.6 H, Absolute Lymphs (auto) 0.45 L, Nucleated RBC % 0, Differential Comment SCANNED, Sodium 134 L, Potassium 3.5, Chloride 100, Carbon Dioxide 26.0, Anion Gap 8, BUN13, Creatinine 0.78, Estim Creat Clear Calc 110.49, Est GFR (MDRD) Af Amer 132, Est GFR (MDRD) Non-Af 109, BUN/Creatinine Ratio 16.6, Glucose 289 H, Calcium 9.0, Total Bilirubin 10.90 H, AST 646 H, ALT 802 H, Alkaline Phosphatase 244 H, Total Protein 6.1 L, Albumin 2.8 L, Globulin 3.3, Albumin/Globulin Ratio 0.8 L Radiography Diagnostic Testing: Radiology Impression Cholangiogram 10/19/22 14:00 IMPRESSION: Unremarkable intraoperative cholangiogram. Electronically Signed: Mao Yadav MD at 15:18 EDT , Physical Exam Const oriented x3 Resp normal respiratory effort GI soft to palpation and non-tender Assessment & Plan Assessment/Plan (1) Acute hepatitis: PLAN: Patient's LFTs remain the same. GI ordered a panel and suspects hepatitis. Continue regular diet and recheck labs tomorrow. Bryson Merritt MD Pager: [facility] [address] [place] [address], [address] [place] [address] Office: 10/21/22 4992 <Electronically signed by Bryson Merritt MD> Cosigner Signature (if applicable): CC: ~ Signed [facility] Work Phone: 1(476) 128-120607-01-2023 Consult note Author Ranjith Sarmiento [facility] October 20, 2022 8:05pm Note Date/Time October 20, 2022 7:38p m [facility] Medical Records Department [address] [place] [id number] Consultation - GI 10/20/22 1932 MR#: [id number] Acct: [id number] Name: LONNIE MORA Rep #:[id number] : 1965 56 From: Ranjith Sarmiento DO PCP: Dr. Molly Kearns MD Status:AD M IN Location: [place] [address] HPI Consult Data Date of Consult: 10/20/22 HPI Narrative Reason for Consultation: hepatitis HPI Narrative: LONNIE MORA, is a 56 M who presents with worsening abdominal pain. He has a past medical history of type 2 diabetes, hypertension, hyperlipidemia, nephrolithiasis. He has been saline very fatigued and weak for the last 6 months and it has gotten progressively worse over the last 2 months. In evaluation of his liver his PCP had ordered a work-up for possible autoimmune hepatitis. As per his he has had a elevated anti-smooth muscle antibody (I am not surewhat the titer is ). His did not know if he had a positive LULU to go with his anti-smooth muscle antibody. He also was noted to have hyper ferritin anemia as per his with an elevated iron level. They have been adjusting his diet after his diagnosis of type 2 diabetes and trying to decrease the amount of iron that he takes and on a daily basis throughhis diet. He denies any rashes. He has no family history of liver disease. Hedoes not drink any alcohol. He has not had any blood transfusions. He has no previous history of chronic viral hepatitis or acute viral hepatitis. On this admission, he presented with 3 days of worsening abdominal discomfort. He has been having abdominal bloating and discomfort for the past several months. On evaluation in the ED he was determined to have hepatomegaly with an enlarged liver on CT scan. There were no signs of pancreatitis on the CT. However his labs did show elevated amylase and lipase. Ultrasound showed gallbladder wall thickening of 4 mm with an enlarged gallbladder and common bile duct dilation was noted on the report but the size was not given. Initial evaluation showed mild hyperbilirubinemia of 2.9, alk phos of 72, AST 67 and AST of 63. He underwent cholecystectomy with normal intraoperative cholangiogram as per radiology. Yesterday his bilirubin went up to 7.9, alk phos 85, AST of 232, ALT 153. Todayhis bilirubin is up to 10.4, alkaline phosphatase 181, AST of 1125 and ALT at 858. Currently complains of bloating and abdominal discomfort. [facility] Medical History (Updated 10/20/22 @ 19:[address] Kasper Friend, DO) Acute gallstone pancreatitis Diabetes High cholesterol Hypertension Obstructive sleep apnea Home Medications ketorolac 10 mg tablet 10 mg PO Q6H PRN Pain Score 4-10 #14 tabs 06/04/20 [Rx Last Taken Unknown] ondansetron 4 mg disintegrating tablet 4 mg PO Q8H PRN PRN Nausea #10 tabs 06/04/20 [Rx Last Taken Unknown] tamsulosin 0.4 mg capsule 0.4 mg PO DAILY #7 caps 06/04/20 [Rx Last Taken Unknown] benazepril 10 mg-hydrochlorothiazide 12.5 mg tablet 0.5 tab PO DAILY 06/07/20 [History Last Taken Unknown] flaxseed oil 1,000 mg capsule 1,000 mg PO DAILY 06/07/20 [History Last Taken Unknown] fluticasone propionate 50 mcg/actuation nasal spray,suspension 1 spray NASAL DAILY 06/07/20 [History Last Taken Unknown] gemfibrozil 600 mg tablet 600 mg PO BIDAC 06/07/20 [History Last Taken Unknown] loratadine 10 mg tablet 10 mg PO DAILY 06/07/20 [History Last Taken Unknown] multivitamin 1 ea PO DAILY 06/07/20 [History Last Taken Unknown] ciprofloxacin HCl 500 mg tablet 500 mg PO BID #6 tabs 06/09/20 [Rx Last Taken Unknown] omega 5-uhl-mba-fish oil 1,200 mg (144 mg-216 mg) capsule (Fish Oil) cap PO general health 10/18/22 [History Last Taken 10/18/22] Allergy/AdvReac Type Severity Reaction Status Date / Time clemastine [From Tavist] Allergy Rash Verified 06/07/20 15:22 pseudoephedrine [From Tavist] Allergy Rash Verified 06/07/20 15:22 Social History Smoking Status: Never smoker Physical Exam Const Constitutional Narrative: Appears somewhat distraught with discomfort Resp normal respiratory effort Cardio Cardio Narrative: Central venous pulsations with tachycardia GI GI Narrative: Mildly distended abdomen with more pronounced tenderness of the right upper quadrant and epigastrium Lab / Micro Data 10/20/22 07:33 10/20/22 07:33 Labs: Laboratory Results - last 24 hr 10/20/22 07:33: WBC 12.7 H, RBC 4.86, Hgb 15.4, Hct 44.2, MCV 90.9, MCH 31.7, MCHC 34.8, RDW Std Deviation 41.1, RDW Coeff of Rodrigue 12.5, Plt Count 183, MPV 11.8, Immature Gran % (Auto) 0.400, Neut % (Auto) 88.4 H, Lymph % (Auto) 4.7 L, [place] % (Auto) 6.2, Eos % (Auto) 0.1, Baso % (Auto) 0.2, Absolute Neuts (auto) 11.3 H, Absolute Lymphs (auto) 0.60 L, Nucleated RBC % 0, Differential Comment SCANNED, Sodium 133 L, Potassium 4.3, Chloride 100, Carbon Dioxide 28.0, Anion Gap 5, BUN 10, Creatinine 0.93, Estim Creat Clear Calc 92.67, Est GFR (MDRD) Af Amer 108, Est GFR (MDRD) Non-Af 90, BUN/Creatinine Ratio 10.8, Glucose 235 H, Calcium 9.1, Total Bilirubin 10.40 H, AST 1125 H, ALT 858 H, Alkaline Phosphatase 181 H, Total Protein 6.8, Albumin 3.3, Globulin 3.5, Albumin/Globulin Ratio 0.9 Radiology Impression Cholangiogram 10/19/22 14:00 IMPRESSION: Unremarkable intraoperative cholangiogram. Electronically Signed: Mao Yadav MD at 15:18 EDT , Assessment & Plan Assessment/Plan (1) Acute hepatitis: PLAN: The differential diagnosis for his acute hepatitis is decompensated liver disease secondary to possible decompensated autoimmune hepatitis, IgG4 related acute hepatitis and acute pancreatitis, ischemic hepatitis status post surgery, primary or secondary hemochromatosis, Tim's disease, but less likely viral hepatitis or drug injury to the liver in a patient with underlying liver disease. Recommendation: -N-acetylcysteine -No Tylenol products -Emperic steroids with insulin if LFTs and INR keep elevating -Check IgG4 level, LULU, INR, PT, PTT -Anti-smooth muscle antibody, antiliver muscle kidney antibody -CMV IgG and IgM, EBV IgG IgM -ANCA antibody -Anti-liver cytosol antibodies -Ferritin level -Ultrasound with Dopplers -ESR and CRP -Serum and urine protein electrophoresis -CPK -2D echo to see if he has any cardiac abnormalities secondary to hyperferritinemia from primary hemochromatosis versus secondary hemochromatosis from Nicole Charges/Coding Visit Charges Inpatient E&M: 98453 Init Hosp L3 10/20/222004 <Electronically signed by Ranjith Friend DO> Cosigner Signature (if applicable): CC: Dr. Molly Kearns MD~ Signed [facility] Work Phone: 1([phone]) 655-857507-01-2023 Progress note Author Bryson Merritt [facility] October 20, 2022 7:05am Note Date/Time October 20, 2022 7:05a m [facility] Medical Records Department [address] [place] [address] Progress Note - Surgery 10/20/22703 MR#: [id number] Acct: [id number] Name: LONNIE MORA Rep #:[id number] : 1965 56 From: Bryson hoyt MD PCP: Dr. Molly Kearns MD Status:AD M IN Location: [facility] [id number] Subjective Subjective Patient is doing much better. He reports he is only having soreness at his incisions. The pain in his abdomen is much improved. He denied any nausea. Objective Data Objective Data Vital Signs: Vital Signs Temp Pulse Resp BP Pulse Ox O2 Del Method O2 Flow Rate 98.2 F 77 16 159/70 H 97 CPAP 8 10/20/22 06:30 10/20/22 06:30 10/20/22 06:30 10/20/22 06:30 10/20/22 06:30 10/20/22 06:30 10/19/22 16:00 Oxygen Flow Rate (L/min) 8 Oxygen Delivery Method CPAP Weight: 188 lb 4.8 oz Body Mass Index (BMI) 27.0 Intake & Output: Intake and Output for Last 24 Hours 10/18/22 10/19/22 10/20/22 23:59 23:59 23:59 Intake Total 1100 / 1100 4529.25 / 4529.25 Output Total 800 / 800 Balance 1100 / 1100 4529.25 / 4529.25 -800 / -800 Lab / Micro Data 10/19/22 05:40 10/19/22 05:40 Labs: Laboratory Results - last 24 hr 10/19/22 05:40: Differential Comment SCANNED, Hemoglobin A1c 8.3 H Radiography Diagnostic Testing: Radiology Impression Cholangiogram 10/19/22 14:00 IMPRESSION: Unremarkable intraoperative cholangiogram. Electronically Signed: Mao Yadav MD at 15:18 EDT , Physical Exam Const oriented x3 and no apparent distress GI soft to palpation Inspection: Negative for abdominal distention Assessment & Plan Assessment/Plan (1) Acute gallstone pancreatitis: PLAN: Patient reports his pain is much improved and only has the soreness at hisincision sites. He denies any nausea overnight he says he is able to sleep. I will start him on a diet and see how he does. I am waiting for morning labs to see what his LFTs are doing today. Possible discharge later today or tomorrow if tolerating diet and pain well controlled and LFTs start decreasing. Bryson Merritt MD Pager: [facility] [address] [place] [address], [address] [place] [address] Office: 10/20/22 0705 <Electronically signed by Bryson Merritt MD> Cosigner Signature (if applicable): CC: ~ Signed [facility] Work Phone: 1(841) 381-472106-30-2023 Procedure [facility] 10-19-2022 Progress note Author Darrius Rubalcava [facility] October 19, 2022 1:04pm Note Date/Time October 19, 2022 10:5 8am [facility] Medical Records Department [address] [place] [address] Progress Note - Surgery 10/19/22 1058 MR#: [id number] Acct: [id number] Name: LONNIE MORA Rep #:[id number] : 1965 56 From: Darrius Crowe PCP: Dr. Molly Kearns MD Status:AD M IN [facility] [facility] [id number] Subjective Subjective Patient seen and examined during AM rounds. He reported a difficult overnight course due to increased pain and inability to get comfortable. He is pacing thefloor because he still is unable to get comfortable. He remains n.p.o. since midnight in anticipation of today's procedure Objective Data Objective Data Vital Signs: Vital Signs Temp Pulse Resp BP Pulse Ox O2 Del Method 98 F 77 18 180/70 H 98 Room Air 10/19/22 09:45 10/19/22 09:45 10/19/22 09:45 10/19/22 09:45 10/19/22 09:45 10/19/22 09:45 Oxygen Delivery Method Room Air Weight: 188 lb 4.8 oz Body Mass Index (BMI) 27.0 Intake & Output: Intake and Output for Last 24 Hours 10/17/22 10/18/22 10/19/22 23:59 23:59 23:59 Intake Total 1100 / 1100 1087.5 / 1087.5 Balance 1100 / 1100 1087.5 / 1087.5 Lab / Micro Data 10/19/22 05:40 10/19/22 05:40 Labs: Laboratory Results - last 24 hr 10/18/22 14:30: WBC 12.0 H, RBC 5.05, Hgb 15.7, Hct 44.2, MCV 87.5, MCH 31.1, MCHC 35.5, RDW Std Deviation 37.2, RDW Coeff of Rodrigue 11.8, Plt Count 207, MPV 10.9, Immature Gran % (Auto) 0.300, Neut % (Auto) 83.9 H, Lymph % (Auto) 8.2 L, [place] % (Auto) 6.5, Eos % (Auto) 0.8, Baso % (Auto) 0.3, Absolute Neuts (auto) 10.1 H, Absolute Lymphs (auto) 0.98, Nucleated RBC % 0, Sodium 137, Potassium 4.4, Chloride 102, Carbon Dioxide 29.0, Anion Gap 6, BUN 16, Creatinine 0.99, Estim Creat Clear Calc 87.05, Est GFR (MDRD) Af Amer 101, Est GFR (MDRD) Non-Af 84, BUN/Creatinine Ratio 16.2, Glucose 238 H, Calcium 9.2, Total Bilirubin 2.90 H, Direct Bilirubin 1.07 H, AST 67 H, ALT 63 H, Alkaline Phosphatase 72, Total Protein 7.5, Albumin 3.9, Globulin 3.6, Lipase 1548 H 10/18/22 16:03: Urine Color Yellow, Urine Clarity Clear, Urine pH 5.0, Ur Specific [place] 1.015, Urine Protein Negative, Urine Glucose (UA) Normal, UrineKetones Negative, Urine Occult Blood 25 H, Urine Nitrite Negative, Urine Bilirubin Negative, Urine Urobilinogen Normal, Ur Leukocyte Esterase Negative, Urine RBC 0 SEEN, Urine WBC 0 SEEN, Ur Squamous Epith Cells 0 SEEN, Urine Bacteria 0 SEEN, Urine Mucus 0 SEEN 10/19/22 05:40: WBC 11.6 H, RBC 5.12, Hgb 16.4, Hct 45.7, MCV 89.3, MCH 32.0, MCHC 35.9, RDW Std Deviation 38.3, RDW Coeff of Rodrigue 11.9, Plt Count 190, MPV 11.2, Immature Gran % (Auto) 0.400, Neut % (Auto) 92.0 H, Lymph % (Auto) 3.3 L, [place] % (Auto) 4.1, Eos % (Auto) 0.0, Baso % (Auto) 0.2, Absolute Neuts (auto) 10.7 H, Absolute Lymphs (auto) 0.38 L, Nucleated RBC % 0, Differential Comment SCANNED, Sodium 136, Potassium 3.5, Chloride 104, Carbon Dioxide 24.0, Anion Gap8, BUN 10, Creatinine 0.90, Estim Creat Clear Calc 95.76, Est GFR (MDRD) Af [id number], Est GFR (MDRD) Non-Af 93, BUN/Creatinine Ratio 11.1, Glucose 268 H, Hemoglobin A1c 8.3 H, Calcium 8.7, Phosphorus 2.6, Magnesium 1.9, Total Bilirubin 7.90 H, AST 232 H, ALT 153 H, Alkaline Phosphatase 85, Total Protein 7.3, Albumin 3.8, Globulin 3.5, Albumin/Globulin Ratio 1.1, Lipase 409 H Radiography Diagnostic Testing: Radiology Impression Abdomen/Pelvis CT 10/18/22 14:21 IMPRESSION: Abnormal appearance of the gallbladder. Possible cholelithiasis and cholecystitis. Multiple bilateral nonobstructing renal stones. Prominent fatty liver and hepatomegaly. Electronically Signed: Josiah Flores MD at 16:18 EDT , Gallbladder Ultrasound 10/18/22 16:14 IMPRESSION: Limited as above. Distended gallbladder with a thickened wall, gallstones, and sludge. Dilated common bile duct. Electronically Signed: Josiah Flores MD at 17:39 EDT , Physical Exam Const Constitutional Narrative: Appears somewhat distraught with discomfort Resp normal respiratory effort GI GI Narrative: Mildly distended abdomen with more pronounced tenderness of the right upper quadrant and epigastrium Assessment & Plan Assessment/Plan (1) Acute cholecystitis: PLAN: 56-year-old male hospital day 2 for admission for acute cholecystitis. Remains tender in right upper quadrant with more discomfort overnight. Now jaundiced with increased bilirubin. 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 We will plan to proceed to the OR as scheduled for cholecystectomy with cholangiography. (2) Acute gallstone pancreatitis: PLAN: Lipase down trended to 640s from 1500 yesterday. Patient remains tender in epigastrium. (3) Common bile duct dilatation: PLAN: Patient with mildly dilated common bile duct and evidence of both acute cholecystitis and acute pancreatitis. This suggest possibility of choledocholithiasis. Alternatively, common duct may be extrinsically compressedthrough Mirizzi syndrome. We will look to further evaluate via cholangiogram. (4) Hyperbilirubinemia: PLAN: Now manifesting as jaundice. Appears to be secondary to persistent biliary ductal obstruction. Further evaluate at the time of operation as discussed above. Charges/Coding Visit Charges Inpatient E&M: 24061 Subs Hosp L2 10/19/22 1304 <Electronically signed by Darrius Rubalcava MD> Cosigner Signature (if applicable): CC: ~ Signed [facility] Work Phone: 1(697) 207-612106-30-2023 Discharge summary Author Noe Barbour [facility] October 19, 2022 7:26am Note Date/Time October 18, 2022 2:26 pm [facility] Medical Records Department [address] [place] [address] Emergency Department Summary 10/18/22 MR#: [id number] Acct: [id number] Name: LONNIE MORA Rep #:[id number] : 1965 56 From: Noe Longo PCP: Dr. Molly Kearns MD Status:AD M IN Location: [facility] [id number] HPI <Dr. Noe Barbour DO - Last Filed: 10/19/22 07:26> HPI - GI History of Present Illness Chief Complaint: Abd Pain Informant: patient and spouse/S.O. Narrative Narrative: Presents here with spouse intermittent pain across his upper abdomen since Saturday. No nausea or vomiting. States today had 2 loose stools that was slightgray to brown in color. No fevers. No urinary symptoms. No abdominal surgeries. No history of colonoscopies however Cologuard last year was negative. History of kidney stones last time 2 years ago. Urine was dark this morning however is cleared up. States being followed by PCP for fatty liver with enlargement. History hypertension prediabetes. Denies any alcohol history. Denies any abdominal surgeries in the past. Pain was up to 7 earlier today but down to 1 currently. Prior similar symptoms: No PFSH <Dr. Noe Barbour DO - Last Filed: 10/19/22 07:26> PFSH Medical History (Updated 10/18/22 @ 22:36 by Roxanne Torres) Acute gallstone pancreatitis Diabetes High cholesterol Hypertension Obstructive sleep apnea Home Medications ketorolac 10 mg tablet 10 mg PO Q6H PRN Pain Score 4-10 #14 tabs 06/04/20 [Rx Last Taken Unknown] ondansetron 4 mg disintegrating tablet 4 mg PO Q8H PRN PRN Nausea #10 tabs 06/04/20 [Rx Last Taken Unknown] tamsulosin 0.4 mg capsule 0.4 mg PO DAILY #7 caps 06/04/20 [Rx Last Taken Unknown] benazepril 10 mg-hydrochlorothiazide 12.5 mg tablet 0.5 tab PO DAILY 06/07/20 [History Last Taken Unknown] flaxseed oil 1,000 mg capsule 1,000 mg PO DAILY 06/07/20 [History Last Taken Unknown] fluticasone propionate 50 mcg/actuation nasal spray,suspension 1 spray NASAL DAILY 06/07/20 [History Last Taken Unknown] gemfibrozil 600 mg tablet 600 mg PO BIDAC 06/07/20 [History Last Taken Unknown] loratadine 10 mg tablet 10 mg PO DAILY 06/07/20 [History Last Taken Unknown] multivitamin 1 ea PO DAILY 06/07/20 [History Last Taken Unknown] ciprofloxacin HCl 500 mg tablet 500 mg PO BID #6 tabs 06/09/20 [Rx Last Taken Unknown] omega 4-ofs-fhi-fish oil 1,200 mg (144 mg-216 mg) capsule (Fish Oil) cap PO general health 10/18/22 [History Last Taken 10/18/22] Allergy/AdvReac Type Severity Reaction Status Date / Time clemastine [From Tavist] Allergy Rash Verified 06/07/20 15:22 pseudoephedrine [From Tavist] Allergy Rash Verified 06/07/20 15:22 Social History Smoking Status: Never smoker ROS <Dr. Noe Barbour DO - Last Filed: 10/19/22 07:26> ROS ED Constitutional Constitutional ED: Denies chills, fever(s) or sweats Eyes Eyes: Denies change in vision ENT ENT ED: Denies dysphagia or sore throat Cardiovascular Cardiovascular: Denies chest pain, leg edema, palpitations or racing heartbeat Respiratory/Chest Respiratory/Chest: Denies cough, dyspnea or dyspnea on exertion Gastrointestinal Gastrointestinal: Reports abdominal pain; Denies diarrhea, nausea or vomiting Genitourinary Genitourinary ED: Denies dysuria, hematuria or urinary frequency Musculoskeletal Musculoskeletal: Denies back pain, extremity pain or neck pain Integumentary Denies rash or wounds Neurologic Neurologic: Denies headache(s), paresthesias or weakness EXAM <Dr. Noe Barbour DO - Last Filed: 10/19/22 07:26> Physical Exam Const Vital Signs: 10/18/22 13:54 10/18/22 18:00 Temperature 97.6 F L Temperature Source Temporal Pulse Rate 92 81 Respiratory Rate 16 14 Blood Pressure 141/71 H 143/76 H Blood Pressure Mean 94 98 Pulse Ox 98 97 Oxygen Delivery Method Room Air Room Air Positive well nourished and well developed General Appearance ED: well developed and NAD HEENT Reports moist mucous membranes normocephalic and atraumatic Eyes PERRL, EOMs intact bilaterally and conjunctivae normal General Eye ED: Yes normal appearance of both eyes; Negative for scleral icterus Neck no lymphadenopathy and supple General: Negative for tenderness Chest Wall Chest: Negative for tenderness Resp normal respiratory effort and normal air movement Effort and Inspection: symmetric chest movement; Negative for respiratory distress Cardio regular rate, regular rhythm and no murmurs Peripheral Pulses: pulses 2+ throughout GI normal to inspection, nondistended, normoactive bowel sounds GI Narrative: Mild pain across upper abdomen. Negative Gonzales's or McBurney's tenderness. Palpation: Negative for guarding or rebound tenderness present Back/Spine no CVA tenderness and no thoracic nor lumbar tenderness Extremity normal to inspection General Extremety ED: Negative for edema or tenderness General Extremity: Negative for edema Neuro oriented x3 and no sensory deficits noted Sensorium / Orientation: awake and alert Skin no rashes or lesions noted and no wounds <Dr. Cristobal Garibay, DO - Last Filed: 10/18/22 18:42> Physical Exam Const Vital Signs: 10/18/22 13:54 10/18/22 18:00 Temperature 97.6 F L Temperature Source Temporal Pulse Rate 92 81 Respiratory Rate 16 14 Blood Pressure 141/71 H 143/76 H Blood Pressure Mean 94 98 Pulse Ox 98 97 Oxygen Delivery Method Room Air Room Air MDM <Dr. Noe Barbour, DO - Last Filed: 10/19/22 07:26> MDM MDM Narrative Medical decision making narrative: Interventions / MDM: Differential diagnosis: Colitis, pancreatitis, cholecystitis, pancreatic cancer,choledocholithiasis Diagnosis considered but do not suspect: N/A My EKG interpretation: N/A Imaging independently reviewed and interpreted by myself: CT abdomen pelvis: Perradiology abnormal daughter questionable cholelithiasis questionable cholecystitis. Right upper quadrant ultrasound: Pending External documents reviewed: N/A Test considered but not ordered:N/A ED course: Patient vague pain upper abdomen comes and goes. Reporting slight sanderson-colored stool today. He had no jaundice on exam. Nonsurgical exam. However with his sanderson color schools, work-up was initiated with CT scan to rule out any potential cancers. Abdominal labs were obtained. IV fluids started. Labs White count of 12, creatinine 0.99. Lipase was 1548. Slight elevated liver enzymes AST 67 ALT 63 direct bili 1.07 total bili 2.9. Urine negative. CT scan no masses, reported abnormal gallbladder potential gallstone potential cholecystitis. No guarding in the right upper quadrant. Ultrasound gallbladderwill be obtained for further evaluation. Re-evaluation: stable, patient and spouse updated on results. Disposition discussed with patient/family/significant other: Patient and spouse Case discussed with consulting clinician: N/A This note was generated with Coty dictation software. It may contain incorrectwords, spelling, and punctuation that were not noted in checking the note beforesigning. Lab Data Labs: Laboratory Results - last 24 hr 10/18/22 10/18/22 14:30 16:03 WBC 12.0 H RBC 5.05 Hgb 15.7 Hct 44.2 MCV 87.5 MCH 31.1 MCHC 35.5 RDW Std Deviation 37.2 RDW Coeff of Rodrigue 11.8 Plt Count 207 MPV 10.9 Immature Gran % (Auto) 0.300 Neut % (Auto) 83.9 H Lymph % (Auto) 8.2 L [place] % (Auto) 6.5 Eos % (Auto) 0.8 Baso % (Auto) 0.3 Absolute Neuts (auto) 10.1 H Absolute Lymphs (auto) 0.98 Nucleated RBC % 0 Sodium 137 Potassium 4.4 Chloride 102 Carbon Dioxide 29.0 Anion Gap 6 BUN 16 Creatinine 0.99 Estim Creat Clear Calc 87.05 Est GFR (MDRD) Af Amer 101 Est GFR (MDRD) Non-Af 84 BUN/Creatinine Ratio 16.2 Glucose 238 H Calcium 9.2 Total Bilirubin 2.90 H Direct Bilirubin 1.07 H AST 67 H ALT 63 H Alkaline Phosphatase 72 Total Protein 7.5 Albumin 3.9 Globulin 3.6 Lipase 1548 H Urine Color Yellow Urine Clarity Clear Urine pH 5.0 Ur Specific [place] 1.015 Urine Protein Negative Urine Glucose (UA) Normal Urine Ketones Negative Urine Occult Blood 25 H Urine Nitrite Negative Urine Bilirubin Negative Urine Urobilinogen Normal Ur Leukocyte Esterase Negative Urine RBC 0 SEEN Urine WBC 0 SEEN Ur Squamous Epith Cells 0 SEEN Urine Bacteria 0 SEEN Urine Mucus 0 SEEN Radiography Diagnostic Testing: Clinical Impression(s) from Imaging Studies Abdomen/Pelvis CT 10/18/22 14:21 IMPRESSION: Abnormal appearance of the gallbladder. Possible cholelithiasis and cholecystitis. Multiple bilateral nonobstructing renal stones. Prominent fatty liver and hepatomegaly. Electronically Signed: Josiah Flores MD at 16:18 EDT , Gallbladder Ultrasound 10/18/22 16:14 IMPRESSION: Limited as above. Distended gallbladder with a thickened wall, gallstones, and sludge. Dilated common bile duct. Electronically Signed: Josiah Flores MD at 17:39 EDT , <Dr. Cristobal Garibay, DO - Last Filed: 10/18/22 18:42> [facility] Lab Data Labs: Laboratory Results - last 24 hr 10/18/22 10/18/22 14:30 16:03 WBC 12.0 H RBC 5.05 Hgb 15.7 Hct 44.2 MCV 87.5 MCH 31.1 MCHC 35.5 RDW Std Deviation 37.2 RDW Coeff of Rodrigue 11.8 Plt Count 207 MPV 10.9 Immature Gran % (Auto) 0.300 Neut % (Auto) 83.9 H Lymph % (Auto) 8.2 L [place] % (Auto) 6.5 Eos % (Auto) 0.8 Baso % (Auto) 0.3 Absolute Neuts (auto) 10.1 H Absolute Lymphs (auto) 0.98 Nucleated RBC % 0 Sodium 137 Potassium 4.4 Chloride 102 Carbon Dioxide 29.0 Anion Gap 6 BUN 16 Creatinine 0.99 Estim Creat Clear Calc 87.05 Est GFR (MDRD) Af Amer 101 Est GFR (MDRD) Non-Af 84 BUN/Creatinine Ratio 16.2 Glucose 238 H Calcium 9.2 Total Bilirubin 2.90 H Direct Bilirubin 1.07 H AST 67 H ALT 63 H Alkaline Phosphatase 72 Total Protein 7.5 Albumin 3.9 Globulin 3.6 Lipase 1548 H Urine Color Yellow Urine Clarity Clear Urine pH 5.0 Ur Specific [place] 1.015 Urine Protein Negative Urine Glucose (UA) Normal Urine Ketones Negative Urine Occult Blood 25 H Urine Nitrite Negative Urine Bilirubin Negative Urine Urobilinogen Normal Ur Leukocyte Esterase Negative Urine RBC 0 SEEN Urine WBC 0 SEEN Ur Squamous Epith Cells 0 SEEN Urine Bacteria 0 SEEN Urine Mucus 0 SEEN Radiography Diagnostic Testing: Clinical Impression(s) from Imaging Studies Abdomen/Pelvis CT 10/18/22 14:21 IMPRESSION: Abnormal appearance of the gallbladder. Possible cholelithiasis and cholecystitis. Multiple bilateral nonobstructing renal stones. Prominent fatty liver and hepatomegaly. Electronically Signed: Josiah Flores MD at 16:18 EDT , Gallbladder Ultrasound 10/18/22 16:14 IMPRESSION: Limited as above. Distended gallbladder with a thickened wall, gallstones, and sludge. Dilated common bile duct. Electronically Signed: Josiah Flores MD at 17:39 EDT , Treatment and Re-Evaluation :: Care of the patient was turned over to me pending ultrasound results. Right upper quadrant ultrasound was obtained. There is a distended gallbladder with thickened wall, gallstones, and sludge. There is dilated common bile duct. There is no evidence of choledocholithiasis. This was interpreted by the radiologist and was also independently reviewed by myself. Case was discussed with Dr. Rubalcava from general surgery. He will be in to evaluate the patient. He recommended starting the patient on Zosyn. He will likely admit the patient to the hospital. Dr. Rubalcava evaluated the patient in the emergency department. He will admit the patient to his service. Patient and family understand and are agreeable with the plan. All questions were answered. Discharge Plan Dx/Rx/DC Orders Clinical Impression: Transaminitis, Abdominal pain, Acute pancreatitis, Acute cholecystitis Disposition Disposition: Acute Care Hospital [facility] Discharge Date/Time: 10/18/22 19:38 What to do if you have Problems For any increased pain, shortness of breath, bleeding, nausea or vomiting, chestpain, or any unexpected problems, contact your Primary Care Provider. Call [facility] ([phone]) or report to the closest Emergency Room. Call 911 if necessary. 10/19/22 0726 <Electronically signed by Noe Longo> Cosigner Signature (if applicable): 10/19/22 0125 <Electronically signed by Cristobal Garibay DO> CC: Dr. Molly Kearns MD ~ Signed [facility] Work Phone: 1(960) 385-565506-29-2023 History and physical note Author Darrius Rubalcava [facility] October 18, 2022 7:18pm Note Date/Time October 18, 2022 7:19 pm [facility] Medical Records Department [address] [place] [address] History & Physical Exam 10/18/22 1904 MR#: [id number] Acct: [id number] Name: LONNIE MORA Rep #:[id number] : 1965 56 From: Darrius Crowe PCP: Dr. Molly Kearns MD Status:RE G ER Location: ED HPI - General General Date of Admission: 10/18/22 Date of Service: 10/18/22 Chief Complaint: Acute onset abdominal pain HPI Narrative LONNIE MORA, is a 56 M who presents to [facility] ER in the company of his spouse with complaints of acute onset abdominal pain. Patient reportedly told his that he had some abdominal discomfort 3 days ago, but 2days ago experienced spontaneous remission before relapsing with the pain again yesterday. He estimates that the pain persisted for at least 8 hours yesterday and he was able to eat and reports a lunch of ham salad and chips and a dinner of Kiswahili beef burrito. He denies any associated nausea with his discomfort. He reports a shifting distribution of his discomfort and initially suggest that this is "large bowel that is hurting" while gesturing to his upper abdomen. Mr. Barber underwent CT of the abdomen and pelvis after standard laboratories which showed elevated lipase, cholestatic pattern to liver function testing withcomprehensive metabolic panel, and mild leukocytosis with left shift. CT imaging demonstrated evidence of a markedly distended gallbladder with pericholecystic fluid and gallbladder wall thickening. Reflex right upper quadrant ultrasound demonstrated further evidence of acute cholecystitis with a thickened gallbladder wall 4 mm and pericholecystic fluid noted with CT exam. Additionally, radiology documented a dilated common bile duct measuring 8 mm in diameter. Mr. Barber has a past medical history significant for well-controlled hypertension, hyperlipidemia, Nicole, and type 2 diabetes (but reports that he has not been started on medication for this latter diagnosis). Surgically?speaking he has a history of kidney stones requiring lithotripsy with urology and a remote history of pilonidal cystectomy. PFSH Home Medications ketorolac 10 mg tablet 10 mg PO Q6H PRN Pain Score 4-10 #14 tabs 06/04/20 [Rx Last Taken Unknown] ondansetron 4 mg disintegrating tablet 4 mg PO Q8H PRN PRN Nausea #10 tabs 06/04/20 [Rx Last Taken Unknown] tamsulosin 0.4 mg capsule 0.4 mg PO DAILY #7 caps 06/04/20 [Rx Last Taken Unknown] benazepril 10 mg-hydrochlorothiazide 12.5 mg tablet 0.5 tab PO DAILY 06/07/20 [History Last Taken Unknown] flaxseed oil 1,000 mg capsule 1,000 mg PO DAILY 06/07/20 [History Last Taken Unknown] fluticasone propionate 50 mcg/actuation nasal spray,suspension 1 spray NASAL DAILY 06/07/20 [History Last Taken Unknown] gemfibrozil 600 mg tablet 600 mg PO BIDAC 06/07/20 [History Last Taken Unknown] loratadine 10 mg tablet 10 mg PO DAILY 06/07/20 [History Last Taken Unknown] multivitamin 1 ea PO DAILY 06/07/20 [History Last Taken Unknown] ciprofloxacin HCl 500 mg tablet 500 mg PO BID #6 tabs 06/09/20 [Rx Last Taken Unknown] omega 0-neu-bse-fish oil 1,200 mg (144 mg-216 mg) capsule (Fish Oil) cap PO 10/18/22 [History Last Taken Unknown] Allergy/AdvReac Type Severity Reaction Status Date / Time clemastine [From Tavist] Allergy Rash Verified 06/07/20 15:22 pseudoephedrine [From Tavist] Allergy Rash Verified 06/07/20 15:22 Social History Smoking Status: Never smoker ROS Constitutional Constitutional: Denies anorexia or change in weight Gastrointestinal Gastrointestinal: Reports abdominal pain and other Details: Sanderson-colored stools ; Denies nausea or vomiting Vital Signs Vital Signs Vital Signs: 10/18/22 13:54 10/18/22 18:00 Temperature 97.6 F L Temperature Source Temporal Pulse Rate 92 81 Respiratory Rate 16 14 Blood Pressure 141/71 H 143/76 H Blood Pressure Mean 94 98 Pulse Ox 98 97 Oxygen Delivery Method Room Air Room Air Weight Weight: 192 lb 1.6 oz Body Mass Index (BMI) 27.6 Physical Exam Const alert, oriented x3 and no apparent distress General Appearance: cooperative Resp normal respiratory effort GI GI Narrative: Hirsute, no visible scars, nondistended, soft, tender to palpation in the epigastrium and right upper quadrant with positive Gonzales sign Results Lab / Micro Data 10/18/22 14:30 10/18/22 14:30 Labs: Laboratory Results - last 24 hr 10/18/22 14:30: WBC 12.0 H, RBC 5.05, Hgb 15.7, Hct 44.2, MCV 87.5, MCH 31.1, MCHC 35.5, RDW Std Deviation 37.2, RDW Coeff of Rodrigue 11.8, Plt Count 207, MPV 10.9, Immature Gran % (Auto) 0.300, Neut % (Auto) 83.9 H, Lymph % (Auto) 8.2 L, [place] % (Auto) 6.5, Eos % (Auto) 0.8, Baso % (Auto) 0.3, Absolute Neuts (auto) 10.1 H, Absolute Lymphs (auto) 0.98, Nucleated RBC % 0, Sodium 137, Potassium 4.4, Chloride 102, Carbon Dioxide 29.0, Anion Gap 6, BUN 16, Creatinine 0.99, Estim Creat Clear Calc 87.05, Est GFR (MDRD) Af Amer 101, Est GFR (MDRD) Non-Af 84, BUN/Creatinine Ratio 16.2, Glucose 238 H, Calcium 9.2, Total Bilirubin 2.90 H, Direct Bilirubin 1.07 H, AST 67 H, ALT 63 H, Alkaline Phosphatase 72, Total Protein 7.5, Albumin 3.9, Globulin 3.6, Lipase 1548 H 10/18/22 16:03: Urine Color Yellow, Urine Clarity Clear, Urine pH 5.0, Ur Specific [place] 1.015, Urine Protein Negative, Urine Glucose (UA) Normal, UrineKetones Negative, Urine Occult Blood 25 H, Urine Nitrite Negative, Urine Bilirubin Negative, Urine Urobilinogen Normal, Ur Leukocyte Esterase Negative, Urine RBC 0 SEEN, Urine WBC 0 SEEN, Ur Squamous Epith Cells 0 SEEN, Urine Bacteria 0 SEEN, Urine Mucus 0 SEEN Radiology Impression Abdomen/Pelvis CT 10/18/22 14:21 IMPRESSION: Abnormal appearance of the gallbladder. Possible cholelithiasis and cholecystitis. Multiple bilateral nonobstructing renal stones. Prominent fatty liver and hepatomegaly. Electronically Signed: Josiah Flores MD at 16:18 EDT , Gallbladder Ultrasound 10/18/22 16:14 IMPRESSION: Limited as above. Distended gallbladder with a thickened wall, gallstones, and sludge. Dilated common bile duct. Electronically Signed: Josiah Flores MD at 17:39 EDT , Assessment & Plan Assessment/Plan (1) Acute cholecystitis: PLAN: This is a 56-year-old male with past medical history enumerated in the HPIabove who presents with signs and symptoms of acute cholecystitis and gallstone pancreatitis. He describes symptoms for the past 3 days that have been progressive. However, he reports improvement in his discomfort currently and denies any requirement for pain medication during his emergency department evaluation. His exam is consistent with the above diagnoses given tenderness inboth the right upper quadrant and epigastrium. I have discussed these diagnosesand their pathophysiology (by request) at some length with both patient and his spouse. I have thus recommended trending his abdominal exam, following up his laboratories, but ultimately planning for laparoscopic cholecystectomy with intraoperative cholangiogram. I have shared with him the details of this operation as well as its attendant risks and benefits. I have also shared with him that he would require a follow-up ERCP should his cholangiography find evidence of choledocholithiasis. He is understanding of this information. For now we will plan to admit for IV antibiotic therapy with plans to follow-up: Neuro: As needed Dilaudid Pulm/CV: No current issues, monitor patient's vitals and arrange for as needed'sin the event of significant hypertension FEN/GI: Trend electrolytes with daily CMP, clear liquid diet this evening then n.p.o. at midnight, trend lipase : No current issues Heme/ID: Trend CBC and initiate empiric Zosyn therapy given cholecystitis and possible choledocholithiasis Endo: We will monitor blood sugars with labs but given that patient is not already started on treatment for his diabetes will not plan for sliding scale unless it is noted to be significantly elevated Proph: SCDs Dispo: Inpatient (2) Acute gallstone pancreatitis: PLAN: Trend lipase and CMP. Will have to wait some improvement of his epigastric discomfort before proceeding to the operating room for gallbladder removal. (3) Common bile duct dilatation: PLAN: Patient with mildly dilated common bile duct and evidence of both acute cholecystitis and acute pancreatitis. This suggest possibility of choledocholithiasis. To be further evaluated with intraoperative cholangiography during cholecystectomy. We will trend patient's CMP Charges/Coding Visit Charges Inpatient E&M: 78605 Init Hosp L2 10/18/221917 <Electronically signed by Darrius Rubalcava MD> Cosigner Signature (if applicable): CC: Dr. Molly Kearns MD; Dr. Darrius Rubalcava MD~ Signed [facility] Work Phone: [phone] 480-509703-18-2023 Miscellaneous Notes* Telephone Encounter - Bel Brizuela - 07/07/2022 11:55 AM EDT Patient has been identified by name and [...] and advise. Bel Brizuela documented in this encounterUniversity [facility]als [facility]03-15-[facility]23 History of Present illness Narrative* Molly Kearns MD - 07/04/2022 3:55 PM EDT This note was created using BAASBOXriter. Subjective Lonnie Denton is a 56 year old male. Patient presents with: F/U 4 month SUBJECTIVE: Lonnie Denton is a 56 year old year old gentleman here today for 6 month follow up appointment forreview of medical conditions. Ear symptoms--not hearing as [...] Height as of 03/26/17: 174.6 cm (5' 8.75"). Weight as of this encounter: 85.7 kg [...] Lymph 1.00 - 4.00 k/uL 1.73 1.81 [place]% % 10.7 7.6 Abs [place] <0.87 k/uL 0.48 0.40 Eosin% % 3.3 [...] and regular exercise and adequate sleep. Molly Kearns MD documented in this encounterUniversity Hospitals [facility]11-14-2022 History of Present illness Narrative* Molly Kearns MD - 03/05/2022 4:15 PM EST This note was created using BAASBOXriter. Subjective Lonnie Denton is a 56 year old male. Patient presents with: Follow Up SUBJECTIVE: Lonnie Denton is a 56 year old year old gentleman here today for 4 month follow up appointment forreview of medical conditions. Stress the past couple months. 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 Working in [employer] [facility] [employer] starting next week. Hanging in there. BPs [...] Height as of 03/26/17: 174.6 cm (5' 8.75"). Weight as of this encounter: 83 kg [...] Lymph 1.00 - 4.00 k/uL 1.73 1.81 [place]% % 10.7 7.6 Abs [place] <0.87 k/uL 0.48 0.40 Eosin% % 3.3 [...] (H) The 10-year ASCVD risk score (Ascencion TAYLOR, et al., 2019) is: 19.2% Values used [...] lifestyle changes for effective weight loss as wellas control of DM, and control of BP and lipids. Continue present meds. Continue present management. Further evaluation and treatment as indicated. Molly Kearns MD documented in this encounterUniversity Hospitals [facility] Center07-27-2022 History of Present illness Narrative* Molly Kearns MD - 11/15/2021 3:15 PM EDT This note was created using NoteWriter. Subjective Lonnie Denton is a 56 year old male. Patient presents with: Follow Up SUBJECTIVE: Lonnie Denton is a 56 year old year [...] then a couple weeks ago passed blood. Hadpain in urethral area. Could not sit or [...] Height as of 03/26/17: 174.6 cm (5' 8.75"). Weight as of this encounter: 86.2 kg [...] Abs Lymph 1.00 - 4.00 k/uL 1.73 [place]% % 10.7 Abs [place] <0.87 k/uL 0.48 Eosin% % 3.3 Abs [...] ICD10: N20.0 Stable Continue present management. 6. NICOLE (nonalcoholic steatohepatitis) - ICD9: 571.8, ICD10: K75.81 Needs to keep working on diet and exercise with lifestyle changes for effective weight loss as wellas control of DM, and control of BP and lipids. - COMP METABOLIC PANEL 7. Need for vaccination - ICD9: V05.9, ICD10: Z23 - ZOSTER VACC RECOMBINANT,IM - ZOSTER VACC RECOMBINANT,IM Molly Kearns MD documented in this encounterUniversity Hospitals [facility] Center09-16-2011 History of Past illness Narrative* Problem Noted Date Resolved Date Diabetes mellitus type 2, controlled, without co mplications 01/05/2011 08/31/2015 OBESITY NOS 03/23/2015 Unspecified sleep apnea 09/12/19 17 documented as of this encounter (statuses as of 01/23/2022) [facility] of Past illness Narrative* Problem Noted Date Resolved Date Diabetes mellitus type 2, controlled, without co mplications 01/05/2011 08/31/2015 OBESITY NOS 03/23/2015 Unspecified sleep apnea 09/12/19 17 documented as of this encounter (statuses as of 03/29/2022) [facility] of Past illness Narrative* Problem Noted Date Resolved Date Diabetes mellitus type 2, controlled, without co mplications 01/05/2011 08/31/2015 OBESITY NOS 03/23/2015 Unspecified sleep apnea 09/12/19 17 documented as of this encounter (statuses as of 07/09/2022) [facility] of Past illness Narrative* Problem Noted Date Resolved Date Diabetes mellitus type 2, controlled, without co mplications 01/05/2011 08/31/2015 OBESITY NOS 03/23/2015 Unspecified sleep apnea 09/12/19 17 documented as of this encounter (statuses as of 08/03/2022) [facility] of Past illness Narrative* Problem Noted Date Resolved Date Diabetes mellitus type 2, controlled, without co mplications 01/05/2011 08/31/2015 OBESITY NOS 03/23/2015 Unspecified sleep apnea 09/12/19 17 documented as of this encounter (statuses as of 10/26/2022) [facility] of Past illness Narrative* Problem Noted Date Diagnosed Date Resolved Date Diabetes mellitus type 2, co ntrolled, without complications 01/05/2011 08/31/2015 OBESITY NOS 03/23/2015 Unspecified sleep apnea 08/21 documented as of this encounter (statuses as of 10/30/2022) [facility] of Past illness Narrative* Problem Noted Date Diagnosed Date Resolved Date Diabetes mellitus type 2, co ntrolled, without complications 01/05/2011 08/31/2015 OBESITY NOS 03/23/2015 Unspecified sleep apnea 08/21 documented as of this encounter (statuses as of 11/15/2022) [facility] of Past illness Narrative* Problem Noted Date Diagnosed Date Resolved Date Diabetes mellitus type 2, co ntrolled, without complications 01/05/2011 08/31/2015 OBESITY NOS 03/23/2015 Unspecified sleep apnea 08/21 documented as of this encounter (statuses as of 12/03/2022) [facility] of Past illness Narrative* Problem Noted Date Diagnosed Date Resolved Date Diabetes mellitus type 2, co ntrolled, without complications 01/05/2011 08/31/2015 OBESITY NOS 03/23/2015 Unspecified sleep apnea 08/21 documented as of this encounter (statuses as of 01/19/2023) [facility] of [facility] illness Narrative* Problem Noted Date Diagnosed Date Resolved Date Diabetes mellitus type 2, co ntrolled, without complications 01/05/2011 08/31/2015 OBESITY NOS 03/23/2015 Unspecified sleep apnea 08/21 documented as of this encounter (statuses as of 03/23/2023) [facility] of Past illness Narrative* Problem Noted Date Diagnosed Date Resolved Date Diabetes mellitus type 2, co ntrolled, without complications 01/05/2011 08/31/2015 OBESITY NOS 03/23/2015 Unspecified sleep apnea 08/21 documented as of this encounter (statuses as of 06/07/2023) [facility] of Past illness Narrative* Problem Noted Date Diagnosed Date Resolved Date Diabetes mellitus type 2, co ntrolled, without complications 01/05/2011 08/31/2015 OBESITY NOS 03/23/2015 Unspecified sleep apnea 08/21 documented as of this encounter (statuses as of 08/07/2023) [facility] note* Diagnosis Elevated ferritin- Primary Other abnormal blood chemistry Type 2 diabetes mellitus without complication, without long-term current use of insulin (HCC) Essential hypertension Unspecified essential hypertension Mixed hyperlipidemia Kidney stones Calculus of kidney NICOLE (nonalcoholic steatohepatitis) Other chronic nonalcoholic liver disease Need for vaccination Need for prophylactic vaccination and inoculation against unspecified single disease documented in this encounter [facility]* Diagnosis Type 2 diabetes mellitus without complication, without long-term current use of insulin (HCC)- Primary Essential hypertension Unspecified essential hypertension Elevated ferritin Other abnormal blood chemistry Mixed hyperlipidemia documented in this encounter [facility]* Diagnosis Type 2 diabetes mellitus without complication, without long-term current use of insulin (HCC)- Primary Elevated ferritin Other abnormal blood chemistry Essential hypertension Unspecified essential hypertension Mixed hyperlipidemia Encounter for long-term current use of medication documented in this encounter [facility]* Diagnosis Onset Date Resolution Status Abdominal pain acute Acute cholecystitis acute Acute gallstone pancreatitis acute Acute pancreatitis acute Common bile duct dilatation acute Transaminitis acute [facility] Work Phone: Evaluation note* Diagnosis Onset Date Resolution Status Abdominal pain acute Acute cholecystitis acute Acute gallstone pancreatitis acute Acute hepatitis acute Acute pancreatitis acute Common bile duct dilatation acute Hemochromatosis acute Hyperbilirubinemia acute Transaminitis acute Diabetes chronic [facility] Work Phone: Evaluation note* Diagnosis Type 2 diabetes mellitus without complication, without long-term current use of insulin (HCC)- Primary [facility] Diagnosis Type 2 diabetes mellitus without complication, with long-term current use of insulin (HCC)- Primary 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) Elevated ferritin Other abnormal blood chemistry Autoimmune hepatitis treated with steroids (HCC) Autoimmune hepatitis Essential hypertension Unspecified essential hypertension [facility] Diagnosis Elevated ferritin- Primary Other abnormal blood chemistry Encounter for long-term current use of medication Mixed hyperlipidemia Type 2 diabetes mellitus with hyperglycemia, with long-term current use of insulin (HCC) Essential hypertension Unspecified essential hypertension [facility]* Diagnosis Onset Date Resolution Status Acute hepatitis chronic Elevated ferritin chronic Hemochromatosis [facility] Work Phone: Evaluation note* Diagnosis Autoimmune hepatitis treated with steroids (HCC)- Primary Autoimmune hepatitis [facility]* Diagnosis Type 2 diabetes mellitus without complication, with long-term current use of insulin (HCC)- Primary Essential hypertension Unspecified essential hypertension 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) Fatty liver Other chronic nonalcoholic liver disease Encounter for immunization Need for other specified prophylactic vaccination against single bacterial disease documented in this encounter [facility] note* Diagnosis Liver disease- Primary Unspecified disorder of liver documented in this encounter [facility] note* Diagnosis Liver disease- Primary Unspecified disorder of liver documented [facility] this encounter [facility]* Diagnosis Type 2 diabetes mellitus without complication, with long-term current use of insulin (HCC)- Primary [facility]* Diagnosis Routine medical exam- Primary Routine general medical examination at a health care facility Type 2 diabetes mellitus without complication, with long-term current use of insulin (HCC) 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) Essential hypertension Unspecified essential hypertension Fatty liver Other chronic nonalcoholic liver disease Encounter for long-term current use of medication documented in this encounter [facility] note* Diagnosis Hypogammaglobulinemia (HCC)- Primary Hypogammaglobulinaemia, unspecified documented [facility] this encounter [facility]* Diagnosis Hypogammaglobulinemia (HCC)- Primary Hypogammaglobulinaemia, unspecified [facility]* Diagnosis Hypogammaglobulinemia (HCC)- Primary Hypogammaglobulinaemia, unspecified [facility]* Diagnosis Liver disease- Primary Unspecified disorder of liver [facility]* Diagnosis Type 2 diabetes mellitus without complication, with long-term current use of insulin (HCC) [facility]* Diagnosis Liver disease- Primary Unspecified disorder of liver documented [facility] this encounter [facility]* Diagnosis Type 2 diabetes mellitus without complication, without long-term current use of insulin (HCC)- Primary Essential hypertension Unspecified essential hypertension Metabolic dysfunction-associated steatotic liver disease (MASLD) Elevated ferritin Other abnormal blood chemistry Hemochromatosis associated with compound heterozygous mutation in HFE gene Encounter for long-term current use of medication Need for vaccination Need for prophylactic vaccination and inoculation against unspecified single disease Need for vaccination Need for prophylactic vaccination and inoculation against unspecified single disease documented in this encounter [facility] note* Diagnosis Encounter for immunization- Primary Need for other specified prophylactic vaccination against single bacterial disease documented in this encounter [facility] note* Diagnosis Type 2 diabetes mellitus without complication, with long-term current use of insulin (HCC) documented in this encounter [facility] note* Diagnosis Need for influenza vaccination- Primary Need for prophylactic vaccination and inoculation against influenza Encounter for immunization Need for other specified prophylactic vaccination against single bacterial disease [facility] Author Darrius Rubalcava [facility] October 18, 2022 7:18pm Note Date/Time October 18, 2022 7:19 pm [facility] Medical Records Department [address] [place] [id number] History & Physical Exam 10/18/22 1904 MR#: [id number] Acct: [id number] Name: ABBYGILBERTVania CALZADA Rep #:[id number] : 1965 56 From: Darrius Crowe PCP: Dr. Molly Kearns MD Status:RE G ER Location: ED HPI - General General Date of Admission: 10/18/22 Date of Service: 10/18/22 Chief Complaint: Acute onset abdominal pain HPI Narrative LONNIE MORA, is a 56 M who presents to [facility] ER in the company of his spouse with complaints of acute onset abdominal pain. Patient reportedly told his that he had some abdominal discomfort 3 days ago, but 2days ago experienced spontaneous remission before relapsing with the pain again yesterday. He estimates that the pain persisted for at least 8 hours yesterday and he was able to eat and reports a lunch of ham salad and chips and a dinner of Kiswahili beef burrito. He denies any associated nausea with his discomfort. He reports a shifting distribution of his discomfort and initially suggest that this is "large bowel that is hurting" while gesturing to his upper abdomen. Mr. Barber underwent CT of the abdomen and pelvis after standard laboratories which showed elevated lipase, cholestatic pattern to liver function testing withcomprehensive metabolic panel, and mild leukocytosis with left shift. CT imaging demonstrated evidence of a markedly distended gallbladder with pericholecystic fluid and gallbladder wall thickening. Reflex right upper quadrant ultrasound demonstrated further evidence of acute cholecystitis with a thickened gallbladder wall 4 mm and pericholecystic fluid noted with CT exam. Additionally, radiology documented a dilated common bile duct measuring 8 mm in diameter. Mr. Barber has a past medical history significant for well-controlled hypertension, hyperlipidemia, Nicole, and type 2 diabetes (but reports that he has not been started on medication for this latter diagnosis). Surgically?speaking he has a history of kidney stones requiring lithotripsy with urology and a remote history of pilonidal cystectomy. PFSH Home Medications ketorolac 10 mg tablet 10 mg PO Q6H PRN Pain Score 4-10 #14 tabs 06/04/20 [Rx Last Taken Unknown] ondansetron 4 mg disintegrating tablet 4 mg PO Q8H PRN PRN Nausea #10 tabs 06/04/20 [Rx Last Taken Unknown] tamsulosin 0.4 mg capsule 0.4 mg PO DAILY #7 caps 06/04/20 [Rx Last Taken Unknown] benazepril 10 mg-hydrochlorothiazide 12.5 mg tablet 0.5 tab PO DAILY 06/07/20 [History Last Taken Unknown] flaxseed oil 1,000 mg capsule 1,000 mg PO DAILY 06/07/20 [History Last Taken Unknown] fluticasone propionate 50 mcg/actuation nasal spray,suspension 1 spray NASAL DAILY 06/07/20 [History Last Taken Unknown] gemfibrozil 600 mg tablet 600 mg PO BIDAC 06/07/20 [History Last Taken Unknown] loratadine 10 mg tablet 10 mg PO DAILY 06/07/20 [History Last Taken Unknown] multivitamin 1 ea PO DAILY 06/07/20 [History Last Taken Unknown] ciprofloxacin HCl 500 mg tablet 500 mg PO BID #6 tabs 06/09/20 [Rx Last Taken Unknown] omega 2-tyq-xvt-fish oil 1,200 mg (144 mg-216 mg) capsule (Fish Oil) cap PO 10/18/22 [History Last Taken Unknown] Allergy/AdvReac Type Severity Reaction Status Date / Time clemastine [From Tavist] Allergy Rash Verified 06/07/20 15:22 pseudoephedrine [From Tavist] Allergy Rash Verified 06/07/20 15:22 Social History Smoking Status: Never smoker ROS Constitutional Constitutional: Denies anorexia or change in weight Gastrointestinal Gastrointestinal: Reports abdominal pain and other Details: Sanderson-colored stools ; Denies nausea or vomiting Vital Signs Vital Signs Vital Signs: 10/18/22 13:54 10/18/22 18:00 Temperature 97.6 F L Temperature Source Temporal Pulse Rate 92 81 Respiratory Rate 16 14 Blood Pressure 141/71 H 143/76 H Blood Pressure Mean 94 98 Pulse Ox 98 97 Oxygen Delivery Method Room Air Room Air Weight Weight: 192 lb 1.6 oz Body Mass Index (BMI) 27.6 Physical Exam Const alert, oriented x3 and no apparent distress General Appearance: cooperative Resp normal respiratory effort GI GI Narrative: Hirsute, no visible scars, nondistended, soft, tender to palpation in the epigastrium and right upper quadrant with positive Gonzales sign Results Lab / Micro Data 10/18/22 14:30 10/18/22 14:30 Labs: Laboratory Results - last 24 hr 10/18/22 14:30: WBC 12.0 H, RBC 5.05, Hgb 15.7, Hct 44.2, MCV 87.5, MCH 31.1, MCHC 35.5, RDW Std Deviation 37.2, RDW Coeff of Rodrigue 11.8, Plt Count 207, MPV 10.9, Immature Gran % (Auto) 0.300, Neut % (Auto) 83.9 H, Lymph % (Auto) 8.2 L, [place] % (Auto) 6.5, Eos % (Auto) 0.8, Baso % (Auto) 0.3, Absolute Neuts (auto) 10.1 H, Absolute Lymphs (auto) 0.98, Nucleated RBC % 0, Sodium 137, Potassium 4.4, Chloride 102, Carbon Dioxide 29.0, Anion Gap 6, BUN 16, Creatinine 0.99, Estim Creat Clear Calc 87.05, Est GFR (MDRD) Af Amer 101, Est GFR (MDRD) Non-Af 84, BUN/Creatinine Ratio 16.2, Glucose 238 H, Calcium 9.2, Total Bilirubin 2.90 H, Direct Bilirubin 1.07 H, AST 67 H, ALT 63 H, Alkaline Phosphatase 72, Total Protein 7.5, Albumin 3.9, Globulin 3.6, Lipase 1548 H 10/18/22 16:03: Urine Color Yellow, Urine Clarity Clear, Urine pH 5.0, Ur Specific [place] 1.015, Urine Protein Negative, Urine Glucose (UA) Normal, UrineKetones Negative, Urine Occult Blood 25 H, Urine Nitrite Negative, Urine Bilirubin Negative, Urine Urobilinogen Normal, Ur Leukocyte Esterase Negative, Urine RBC 0 SEEN, Urine WBC 0 SEEN, Ur Squamous Epith Cells 0 SEEN, Urine Bacteria 0 SEEN, Urine Mucus 0 SEEN Radiology Impression Abdomen/Pelvis CT 10/18/22 14:21 IMPRESSION: Abnormal appearance of the gallbladder. Possible cholelithiasis and cholecystitis. Multiple bilateral nonobstructing renal stones. Prominent fatty liver and hepatomegaly. Electronically Signed: Josiah Flores MD at 16:18 EDT , Gallbladder Ultrasound 10/18/22 16:14 IMPRESSION: Limited as above. Distended gallbladder with a thickened wall, gallstones, and sludge. Dilated common bile duct. Electronically Signed: Josiah Flores MD at 17:39 EDT , Assessment & Plan Assessment/Plan (1) Acute cholecystitis: PLAN: This is a 56-year-old male with past medical history enumerated in the HPIabove who presents with signs and symptoms of acute cholecystitis and gallstone pancreatitis. He describes symptoms for the past 3 days that have been progressive. However, he reports improvement in his discomfort currently and denies any requirement for pain medication during his emergency department evaluation. His exam is consistent with the above diagnoses given tenderness inboth the right upper quadrant and epigastrium. I have discussed these diagnosesand their pathophysiology (by request) at some length with both patient and his spouse. I have thus recommended trending his abdominal exam, following up his laboratories, but ultimately planning for laparoscopic cholecystectomy with intraoperative cholangiogram. I have shared with him the details of this operation as well as its attendant risks and benefits. I have also shared with him that he would require a follow-up ERCP should his cholangiography find evidence of choledocholithiasis. He is understanding of this information. For now we will plan to admit for IV antibiotic therapy with plans to follow-up: Neuro: As needed Dilaudid Pulm/CV: No current issues, monitor patient's vitals and arrange for as needed'sin the event of significant hypertension FEN/GI: Trend electrolytes with daily CMP, clear liquid diet this evening then n.p.o. at midnight, trend lipase : No current issues Heme/ID: Trend CBC and initiate empiric Zosyn therapy given cholecystitis and possible choledocholithiasis Endo: We will monitor blood sugars with labs but given that patient is not already started on treatment for his diabetes will not plan for sliding scale unless it is noted to be significantly elevated Proph: SCDs Dispo: Inpatient (2) Acute gallstone pancreatitis: PLAN: Trend lipase and CMP. Will have to wait some improvement of his epigastric discomfort before proceeding to the operating room for gallbladder removal. (3) Common bile duct dilatation: PLAN: Patient with mildly dilated common bile duct and evidence of both acute cholecystitis and acute pancreatitis. This suggest possibility of choledocholithiasis. To be further evaluated with intraoperative cholangiography during cholecystectomy. We will trend patient's CMP Charges/Coding Visit Charges Inpatient E&M: 54199 Init Hosp L2 10/18/221917 <Electronically signed by Darrius Rubalcava MD> Cosigner Signature (if applicable): CC: Dr. Molly Kearns MD; Dr. Darrius Rubalcava MD~ Signed [facility] Work Phone: Chief Complaint and Reason for Visit Chief Complaint ACUTE CHOLECYSTITIS WITH PANCREATITIS ACUTE CHOLECYSTITIS WITH PANCREATITIS Reason for Visit Abdominal pain Acute cholecystitis Acute gallstone pancreatitis Acute pancreatitis Common bile duct dilatation Transaminitis Chief Complaint ACUTE CHOLECYSTITIS WITH PANCREATITIS ACUTE CHOLECYSTITIS WITH PANCREATITIS ACUTE CHOLECYSTITIS WITH PANCREATITIS ACUTE CHOLECYSTITIS WITH PANCREATITIS ACUTE CHOLECYSTITIS WITH PANCREATITIS ACUTE CHOLECYSTITIS WITH PANCREATITIS ACUTE CHOLECYSTITIS WITH PANCREATITIS ACUTE CHOLECYSTITIS WITH PANCREATITIS ACUTE CHOLECYSTITIS WITH PANCREATITIS Reason for Visit Abdominal pain Acute cholecystitis Acute gallstone pancreatitis Acute hepatitis Acute pancreatitis Common bile duct dilatation Hemochromatosis Hyperbilirubinemia Transaminitis Diabetes Chief Complaint First Visit 60 NEW-HEMOCHROMATOSIS INT LABS Reason for Visit Acute hepatitis Elevated ferritin Hemochromatosis Advance Directives No Advanced Directives Records Found Advance Directive Response Recorded Date/ Time Living Will No October 18, 2022 2:20pm Power of Fibrous Plasterer No October 18 3 2:20pm Advance Directive Response Recorded Date/ Time Living Will No October 18, 2022 7:55pm Power of Fibrous Plasterer No October 18 3 7:55pm Advance Directive Response Recorded Date/ Time Living Will No October 18, 2022 6:55pm Power of Fibrous Plasterer No October 18 3 6:55pm Reason for Referral Specialty Diagnoses / Procedures Referred By Contac t Referred To Contact Diagnoses Type 2 diabetes mellitus without complication, with long-term current use of insulin (HCC) Molly Kearns MD [address] [place] [address] Referral ID Status Reason Start Date Expiration Date V isits Requested Visits Authorized [id number] Authorized 10/26/2022 10/26/2023 1 1 Specialty Diagnoses / Procedures Referred By Contac t Referred To Contact Gastroenterology Diagnoses Autoimmune hepatitis treated with steroids (HCC) Procedures CONSULT TO GASTROENTEROLOGY OFFICE/OUTPATIENT [facility] 60 MINUTES Bety Bajwa, DRY WALL SPRAYER.BAGGAGEMASTER [address] [place] [address] Referral ID Status Reason Start Date Expiration Date Visits Requested Visits Authorized [id number] Authorized PCP Requested Referral 06/07/2023 06/06/2024 1 1 Specialty Diagnoses / Procedures Referred By Contac t Referred To Contact Diagnoses Type 2 diabetes mellitus without complication, with long-term current use of insulin (HCC) Jean Sylvester APRN.[employer] [address] [place] [address] Referral ID Status Reason Start Date Expiration Date V isits Requested Visits Authorized [id number] Pending Review 1 1 Referral ID Status Reason Start Date Expiration Date V isits Requested Visits Authorized [id number] Authorized 12/02/2023 12/01/2024 1 1 Specialty Diagnoses / Procedures Referred By Contac t Referred To Contact Diagnoses Hypogammaglobulinemia (HCC) Procedures CONSULT TO HEMATOLOGY/ONCOLOGY OFFICE/OUTPATIENT [facility] 60 MINUTES Jean Sylvester APRN.[employer] [address] [place] [address] Referral ID Status Reason Start Date Expiration Date Visits Requested Visits Authorized [id number] Authorized PCP Requested Referral 03/09/2025 1 1 Family History No Family History Records Found Relationship Condition Age at Onset Recorded Date/T manda father Diabetes mellitus Unknown Cardiac disease Unknown grandfather Cardiac disease Unknown mother Hypertension Unknown Kidney disorder Unknown sister Iron deficiency Unknown Summary Purpose Additional Source Comments Source Comments (unrecognize d section and content) In the event this informatio n is protected by the Federal Confidentiality of Alcohol and Drug Abuse Patient Records regulations: The Federal rules restrict any use of the information to criminally investigate or prosecute any alcohol or drug abuse patient.[facility] the event this information is protected by the Federal Confidentiality of Alcohol and Drug Abuse Patient Records regulations: The Federal rules restrict any use of the information to criminally investigate or prosecute any alcohol or drug abuse patient.[facility] CenterIn the event this information is protected by the Federal Confidentiality of Alcohol and Drug Abuse Patient Records regulations: The Federal rules restrict any use of the information to criminally investigate or prosecute any alcohol or drug abuse patient.[facility] CenterIn the event this information is protected by the Federal Confidentiality of Alcohol and Drug Abuse Patient Records regulations: The Federal rules restrict any use of the information to criminally investigate or prosecute any alcohol or drug abuse patient.[facility] CenterIn the event this information is protected by the Federal Confidentiality of Alcohol and Drug Abuse Patient Records regulations: The Federal rules restrict any use of the information to criminally investigate or prosecute any alcohol or drug abuse patient.[facility] CenterIn the event this information is protected by the Federal Confidentiality of Alcohol and Drug Abuse Patient Records regulations: The Federal rules restrict any use of the information to criminally investigate or prosecute any alcohol or drug abuse patient.[facility] CenterIn the event this information is protected by the Federal Confidentiality of Alcohol and Drug Abuse Patient Records regulations: The Federal rules restrict any use of the information to criminally investigate or prosecute any alcohol or drug abuse patient.[facility] CenterIn the event this information is protected by the Federal Confidentiality of Alcohol and Drug Abuse Patient Records regulations: The Federal rules restrict any use of the information to criminally investigate or prosecute any alcohol or drug abuse patient.[facility] CenterIn the event this information is protected by the Federal Confidentiality of Alcohol and Drug Abuse Patient Records regulations: The Federal rules restrict any use of the information to criminally investigate or prosecute any alcohol or drug abuse patient.[facility] CenterIn the event this information is protected by the Federal Confidentiality of Alcohol and Drug Abuse Patient Records regulations: The Federal rules restrict any use of the information to criminally investigate or prosecute any alcohol or drug abuse patient.[facility] CenterIn the event this information is protected by the Federal Confidentiality of Alcohol and Drug Abuse Patient Records regulations: The Federal rules restrict any use of the information to criminally investigate or prosecute any alcohol or drug abuse patient.[facility] CenterIn the event this information is protected by the Federal Confidentiality of Alcohol and Drug Abuse Patient Records regulations: The Federal rules restrict any use of the information to criminally investigate or prosecute any alcohol or drug abuse patient.[facility] CenterIn the event this information is protected by the Federal Confidentiality of Alcohol and Drug Abuse Patient Records regulations: The Federal rules restrict any use of the information to criminally investigate or prosecute any alcohol or drug abuse patient.[facility] CenterIn the event this information is protected by the Federal Confidentiality of Alcohol and Drug Abuse Patient Records regulations: The Federal rules restrict any use of the information to criminally investigate or prosecute any alcohol or drug abuse patient.[facility] CenterIn the event this information is protected by the Federal Confidentiality of Alcohol and Drug Abuse Patient Records regulations: The Federal rules restrict any use of the information to criminally investigate or prosecute any alcohol or drug abuse patient.[facility] CenterIn the event this information is protected by the Federal Confidentiality of Alcohol and Drug Abuse Patient Records regulations: The Federal rules restrict any use of the information to criminally investigate or prosecute any alcohol or drug abuse patient.[facility] CenterIn the event this information is protected by the Federal Confidentiality of Alcohol and Drug Abuse Patient Records regulations: The Federal rules restrict any use of the information to criminally investigate or prosecute any alcohol or drug abuse patient.[facility] CenterIn the event this information is protected by the Federal Confidentiality of Alcohol and Drug Abuse Patient Records regulations: The Federal rules restrict any use of the information to criminally investigate or prosecute any alcohol or drug abuse patient.[facility] CenterIn the event this information is protected by the Federal Confidentiality of Alcohol and Drug Abuse Patient Records regulations: The Federal rules restrict any use of the information to criminally investigate or prosecute any alcohol or drug abuse patient.[facility] CenterIn the event this information is protected by the Federal Confidentiality of Alcohol and Drug Abuse Patient Records regulations: The Federal rules restrict any use of the information to criminally investigate or prosecute any alcohol or drug abuse patient.[facility] CenterIn the event this information is protected by the Federal Confidentiality of Alcohol and Drug Abuse Patient Records regulations: The Federal rules restrict any use of the information to criminally investigate or prosecute any alcohol or drug abuse patient.[facility] CenterIn the event this information is protected by the Federal Confidentiality of Alcohol and Drug Abuse Patient Records regulations: The Federal rules restrict any use of the information to criminally investigate or prosecute any alcohol or drug abuse patient.[facility] CenterIn the event this information is protected by the Federal Confidentiality of Alcohol and Drug Abuse Patient Records regulations: The Federal rules restrict any use of the information to criminally investigate or prosecute any alcohol or drug abuse patient.[facility] CenterIn the event this information is protected by the Federal Confidentiality of Alcohol and Drug Abuse Patient Records regulations: The Federal rules restrict any use of the information to criminally investigate or prosecute any alcohol or drug abuse patient.[facility] CenterIn the event this information is protected by the Federal Confidentiality of Alcohol and Drug Abuse Patient Records regulations: The Federal rules restrict any use of the information to criminally investigate or prosecute any alcohol or drug abuse patient.[facility] CenterIn the event this information is protected by the Federal Confidentiality of Alcohol and Drug Abuse Patient Records regulations: The Federal rules restrict any use of the information to criminally investigate or prosecute any alcohol or drug abuse patient.[facility] CenterIn the event this information is protected by the Federal Confidentiality of Alcohol and Drug Abuse Patient Records regulations: The Federal rules restrict any use of the information to criminally investigate or prosecute any alcohol or drug abuse patient.[facility] CenterIn the event this information is protected by the Federal Confidentiality of Alcohol and Drug Abuse Patient Records regulations: The Federal rules restrict any use of the information to criminally investigate or prosecute any alcohol or drug abuse patient.[facility] CenterIn the event this information is protected by the Federal Confidentiality of Alcohol and Drug Abuse Patient Records regulations: The Federal rules restrict any use of the information to criminally investigate or prosecute any alcohol or drug abuse patient.[facility] CenterIn the event this information is protected by the Federal Confidentiality of Alcohol and Drug Abuse Patient Records regulations: The Federal rules restrict any use of the information to criminally investigate or prosecute any alcohol or drug abuse patient.[facility] CenterIn the event this information is protected by the Federal Confidentiality of Alcohol and Drug Abuse Patient Records regulations: The Federal rules restrict any use of the information to criminally investigate or prosecute any alcohol or drug abuse patient.[facility] CenterIn the event this information is protected by the Federal Confidentiality of Alcohol and Drug Abuse Patient Records regulations: The Federal rules restrict any use of the information to criminally investigate or prosecute any alcohol or drug abuse patient.[facility] CenterIn the event this information is protected by the Federal Confidentiality of Alcohol and Drug Abuse Patient Records regulations: The Federal rules restrict any use of the information to criminally investigate or prosecute any alcohol or drug abuse patient.[facility] CenterIn the event this information is protected by the Federal Confidentiality of Alcohol and Drug Abuse Patient Records regulations: The Federal rules restrict any use of the information to criminally investigate or prosecute any alcohol or drug abuse patient.[facility] CenterIn the event this information is protected by the Federal Confidentiality of Alcohol and Drug Abuse Patient Records regulations: The Federal rules restrict any use of the information to criminally investigate or prosecute any alcohol or drug abuse patient.[facility] CenterIn the event this information is protected by the Federal Confidentiality of Alcohol and Drug Abuse Patient Records regulations: The Federal rules restrict any use of the information to criminally investigate or prosecute any alcohol or drug abuse patient.[facility] CenterIn the event this information is protected by the Federal Confidentiality of Alcohol and Drug Abuse Patient Records regulations: The Federal rules restrict any use of the information to criminally investigate or prosecute any alcohol or drug abuse patient.[facility] Reason for Visit (unrecogniz ed section and content) Reason Comments Follow Up Reason Comments Refill Request Reason Comments F/U 4 month Reason Comments Education Of Patient/family Reason Comments Hospital F/U Reason Comments send copy results of CMP to Dr Lara Reason Comments Hospital F/U Reason Comments Lab Orders Reason Comments referral Reason Comments Patient Question Reason Comments Recheck Reason Comments Insurance Authorization For procedure pr ior to Specialty Diagnoses / Procedures Referred By Contact Referred To Contact Gastroenterology / GASTROENTEROLOGY Diagnoses Liver disease fibroscan Procedures LIVER ELASTOGRAPHY W/O IMAG W/I&R FIBROSCAN Self [address] [id number] Referral ID Status Reason Start Date Expiration Date Visits Re quested Visits Authorized [id number] Closed 09/26/2023 04/21/2024 1 1 Reason Comments Established Patient Autoimmune hepatitis Specialty Diagnoses / Procedures Referred By Contact Referred To Contact Gastroenterology / GASTROENTEROLOGY Diagnoses Autoimmune hepatitis autoimmune hepititis Procedures OFFICE/OUTPATIENT ESTABLISHED MOD MDM 30 MIN EST DDI PATIENT Self Francisco Sanchez MD [address] [place] [address] Referral ID Status Reason Start Date Expiration Date Visits Re quested Visits Authorized [id number] Closed 09/26/2023 04/21/2024 1 1 Reason Onset Date Comments Refill Request 11/05/2023 Reason Comments Insurance Authorization Reason Onset Date Comments Refill Request 11/26/2023 Reason Onset Date Comments Refill Request 12/25/2023 Reason Comments Yearly Exam Labs prior Reason Comments Results Reason Comments New Patient Specialty Diagnoses / Procedures Referred By Contac t Referred To Contact Diagnoses Hypogammaglobulinemia (HCC) Procedures CONSULT TO HEMATOLOGY/ONCOLOGY OFFICE/OUTPATIENT NEW HIGH MDM 60 MINUTES Gloria, Jean, DRY WALL SPRAYER.[employer] [address] [place] [address] Referral ID Status Reason Start Date Expiration Date V isits Requested Visits Authorized [id number] Closed PCP Requested Referral 03/09/2024 03/09/2025 1 1 Reason Comments Established Patient Autoimmune hepatitis treated with steroids Reason Onset Date Comments Refill Request 06/01/2024 Reason Comments Orders fibroscan Reason Comments F/U 6 Month Reason Comments Imm/Inj Reason Onset Date Comments Refill Request 10/02/2024 Reason Comments Insurance Authorization For Tyson raygoza Reason Onset Date Comments Refill Request 10/22/2024 Reason Onset Date Comments Immunizations 01/01/2025 Flu vaccination Imm/Inj Care Teams (unrecognized sec tion and content) Accounts Collector Relationship Specialty Start Date End Date Molly Kearns MD [address] [place], [place] [id number] PCP - General Internal Medicine 03/06/10 Accounts Collector Relationship Specialty Start Date End Date Molly Kearns MD [address] [place], [place] [id number] PCP - General Internal Medicine 03/06/10 Accounts Collector Relationship Specialty Start Date End Date Molly Kearns MD [address] [place], [place] [id number] PCP - General Internal Medicine 03/06/10 Accounts Collector Relationship Specialty Start Date End Date Molly Kearns MD [address] [place] [id number] PCP - General Internal Medicine 03/06/10 Team Status: Active Member Role Status Dates Dr. Molly Kearns MD Family Provider Active Dr. Molly Kearns MD Primary Care Provider Active Team Status: Active Member Role Status Dates Dr. Molly Kearns MD Primary Care Provider Active Dr. Noe Barbour DO Emergency Provider Active Dr. Darrius Rubalcava MD Admit Provider, A ttending Provider, Other Provider Active Team Status: Active Member Role Status Dates Dr. Molly Kearns MD Primary Care Provider Active Dr. Noe Barbour DO Emergency Provider Active Dr. Darrius Rubalcava MD Admit Provider, Attending Provi annemarie Active Team Status: Active Member Role Status Dates Dr. Molly Kearns MD Primary Care Provider Active Dr. Noe Barbour DO Emergency Provider Active Dr. Darrius Rubalcava MD Admit Provider, Other Provider Active Dr. Bryson Merritt MD Attending Provider Active Team Status: Active Member Role Status Dates Dr. Molly Kearns MD Primary Care Provider Active Dr. Noe Barbour DO Emergency Provider Active Dr. Darrius Rubalcava MD Admit Provider, Other Provider Active Dr. Ranjith Sarmiento , DO Attending Provider Active Team Status: Active Member Role Status Dates Dr. Molly Kearns MD Primary Care Provider Active Dr. Noe Barbour DO Emergency Provider Active Dr. Darrius Rubalcava MD Admit Provider, A ttending Provider, Other Provider Active Dr. Mao Yadav MD Other Provider Active Team Status: Active Member Role Status Dates Dr. Mloly Kearns MD Primary Care Provider Active Dr. Noe Barbour DO Emergency Provider Active Dr. Darrius Rubalcava MD Admit Provider, Other Provider Active Dr. Mao Yadav MD Other Provider Active Dr. Bryson Merritt MD Attending Provider Active Team Status: Inactive Member Role Status Dates Dr. Molly Kearns MD Primary Care Provider Active Dr. Noe Barbour DO Emergency Provider Active Dr. Darrius Rubalcava MD Admit Provider, Attending Provi annemarie Active Dr. Mao Yadav MD Other Provider Active Accounts Collector Relationship Specialty Start Date End Date Molly Kearns MD [address] [place] [address] PCP - General Internal Medicine 03/06/10 Accounts Collector Relationship Specialty Start Date End Date Molly Kearns MD [address] [place] [address] PCP - General Internal Medicine 03/06/10 Accounts Collector Relationship Specialty Start Date End Date Molly Kearns MD [address] [facility], [place] [id number] PCP - General Internal Medicine 03/06/10 Accounts Collector Relationship Specialty Start Date End Date Molly Kearns MD [address] [facility], [place] [id number] PCP - General Internal Medicine 03/06/10 Accounts Collector Relationship Specialty Start Date End Date Molly Kearns MD [address] [facility], [place] [id number] PCP - General Internal Medicine 03/06/10 Accounts Collector Relationship Specialty Start Date End Date Molly Kearns MD [address] [facility], [place] [id number] PCP - General Internal Medicine 03/06/10 Team Status: Inactive Member Role Status Dates Dr. Molly Kearns MD Primary Care Provider, Referr ing Provider Active Dr. Ebenezer Arias MD Attending Provider Active Team Status: Inactive Member Role Status Dates Dr. Molly Kearns MD Primary Care Provider, Referr ing Provider Active Dr. Viry Paul MD Attending Provider Active Team Status: Inactive Member Role Status Dates Dr. Molly Kearns MD Primary Care Provider Active Dr. Ranjith Sarmiento DO Attending Provider, Referring Provider Active Accounts Collector Relationship Specialty Start Date End Date Molly Kearns MD [address] [facility], [place] [id number] PCP - General Internal Medicine 03/06/10 Ebenezer Arias [address], [place] [address] Referring Internal Medicine 05/07/23 Accounts Collector Relationship Specialty Start Date End Date Molly Kearns MD [address] [facility] [place] [address] PCP - General Internal Medicine 03/06/10 Ebenezer Arias [address] [place] [address] Referring Internal Medicine 05/07/23 Accounts Collector Relationship Specialty Start Date End Date Molly Kearns MD [address] [facility] [place] [address] PCP - General Internal Medicine 03/06/10 Ebenezer Arias [address] [facility] [address] [place] [address] Referring Internal Medicine 05/07/23 Accounts Collector Relationship Specialty Start Date End Date Molly Kearns MD [address] [facility] [place] [address] PCP - General Internal Medicine 03/06/10 Ebenezer Arias [address] [facility] [address] [place] [address] Referring Internal Medicine 05/07/23 Accounts Collector Relationship Specialty Start Date End Date Molly Kearns MD [address] [place] [address] PCP - General Internal Medicine 03/06/10 Ebenezer Arias [address] [facility] [address] [place] [address] Referring Internal Medicine 05/07/23 Accounts Collector Relationship Specialty Start Date End Date Molly Kearns MD [address] [place] [address] PCP - General Internal Medicine 03/06/10 Ebenezer Arias [address] ANUJA FITZGERALD [facility] [place] [address] Referring Internal Medicine 05/07/23 Accounts Collector Relationship Specialty Start Date End Date Molly Kearns MD [address] [facility] [place] [address] PCP - General Internal Medicine 03/06/10 Ebenezer Arias [address] [place] [address] Referring Internal Medicine 05/07/23 Accounts Collector Relationship Specialty Start Date End Date Molly Kearns MD [address] [place] [address] PCP - General Internal Medicine 03/06/10 Ebenezer Arias [address]UJA [address]D [address] [place] [address] Referring Internal Medicine 05/07/23 Accounts Collector Relationship Specialty Start Date End Date Molly Kearns MD [address] [place] [address] PCP - General Internal Medicine 03/06/10 Ebenezer Arias [address]D [address], [place] [id number] 202- Referring Internal Medicine 05/07/23 Accounts Collector Relationship Specialty Start Date End Date Molly Kearns MD [address] [place] [address] PCP - General Internal Medicine 03/06/10 Ebenezer Arias [address] [facility] [address] [place] [address] Referring Internal Medicine 05/07/23 Accounts Collector Relationship Specialty Start Date End Date Molly Kearns MD [address] [facility] [place] [address] PCP - General Internal Medicine 03/06/10 Ebenezer Arias [address] [facility] [address] [place] [address] Referring Internal Medicine 05/07/23 Accounts Collector Relationship Specialty Start Date End Date Molly Kearns MD [address] [facility] [place] [address] PCP - General Internal Medicine 03/06/10 Ebenezer Arias [address] [facility] [address] [place] [address] Referring Internal Medicine 05/07/23 Accounts Collector Relationship Specialty Start Date End Date Molly Kearns MD [address] [place] [place] [address] PCP - General Internal Medicine 03/06/10 Ebenezer Arias [address] [place] [address] Referring Internal Medicine 05/07/23 Accounts Collector Relationship Specialty Start Date End Date Molly Kearns MD [address] [place] [place] [address] PCP - General Internal Medicine 03/06/10 Ebenezer Arias [address] [facility] [address] [place] [address] Referring Internal Medicine 05/07/23 Bety Bajwa APRN.BAGGAGEMASTER [address] [place] [address] Rotor Balancer Internal Medicine 03/30/24 Jean Sylvester DRY WALL SPRAYER.VENEER JOINTER RETURNER [address] [place] [address] Rotor Balancer Internal Medicine 03/30/24 Accounts Collector Relationship Specialty Start Date End Date Molly Kearns MD [address] [place] [address] PCP - General Internal Medicine 03/06/10 Ebenezer Arias [address] [place] [address] Referring Internal Medicine 05/07/23 Bety Bajwa, DRY WALL SPRAYER.BAGGAGEMASTER [address] [place] [address] Rotor Balancer Internal Medicine 03/30/24 Jean Sylvester DRY WALL SPRAYER.VENEER JOINTER RETURNER [address] [place] [address] Rotor Balancer Internal Medicine 03/30/24 Accounts Collector Relationship Specialty Start Date End Date Molly Kearns MD [address] [place] [address] PCP - General Internal Medicine 03/06/10 Ebenezer Arias [address] [facility] [address] [place] [address] Referring Internal Medicine 05/07/23 Bety Bajwa APRN.BAGGAGEMASTER [address] [facility] [place] [address] Rotor Balancer Internal Medicine 03/30/24 Jean Sylvester APRN.VENEER JOINTER RETURNER [address] [facility] [place] [address] Rotor Balancer Internal Medicine 03/30/24 07/10/24 Accounts Collector Relationship Specialty Start Date End Date Molly Kearns MD [address] [facility] [place] [address] PCP - General Internal Medicine 03/06/10 Ebenezer Arias [address] [facility] [address] [place] [address] Referring Internal Medicine 05/07/23 Bety Bajwa APRN.BAGGAGEMASTER [address] [facility] [place] [address] [facility] Internal Medicine 03/30/24 Jean Sylvester APRN.VENEER JOINTER RETURNER [address] [facility] [place] [address] [facility] Internal Medicine 07/14/24 Accounts Collector Relationship Specialty Start Date End Date Molly Kearns MD [address] [facility] [place] [address] PCP - General Internal Medicine 03/06/10 Ebenezer Arias [address] [facility] [address] [place] [address] Referring Internal Medicine 05/07/23 Jean Sylvester APRN.VENEER JOINTER RETURNER [address] [place] [address] Rotor Balancer Internal Medicine 07/14/24 Bety Bajwa APRN.BAGGAGEMASTER [address] [place] [address] Rotor Balancer Internal Medicine 09/09/24 Accounts Collector Relationship Specialty Start Date End Date Molly Kearns MD [address] [place] [address] PCP - General Internal Medicine 03/06/10 Ebenezer Arias [address] [place] [address] Referring Internal Medicine 05/07/23 Jean Sylvester APRN.VENEER JOINTER RETURNER [address] [place] [address] Rotor Balancer Internal Medicine 07/14/24 Bety Bajwa APRN.BAGGAGEMASTER [address] [place] [address] Rotor Balancer Internal Medicine 09/09/24 Accounts Collector Relationship Specialty Start Date End Date Molly Kearns MD [address] [place] [address] PCP - General Internal Medicine 03/06/10 Ebenezer Arias [address] [place] [address] Referring Internal Medicine 05/07/23 Jean Sylvester APRN.VENEER JOINTER RETURNER [address] [place] [address] Rotor Balancer Internal Medicine 07/14/24 Bety Bajwa, DRY WALL SPRAYER.BAGGAGEMASTER [address] [place] [address] Rotor Balancer Internal Medicine 09/09/24 Accounts Collector Relationship Specialty Start Date End Date Molly Kearns MD [address] [place] [address] PCP - General Internal Medicine 03/06/10 Ebenezer Arias [address] [facility] [address] [place] [address] Referring Internal Medicine 05/07/23 Jean Sylvester APRN.VENEER JOINTER RETURNER [address] [place] [address] Rotor Balancer Internal Medicine 07/14/24 Bety Bajwa DRY WALL SPRAYER.BAGGAGEMASTER [address] [place] [address] [facility] Internal Medicine 09/09/24 Accounts Collector Relationship Specialty Start Date End Date Molly Kearns MD [address] [place] [address] PCP - General Internal Medicine 03/06/10 Ebenezer Arias [address] [place] [address] Referring Internal Medicine 05/07/23 Jean Sylvester APRN.VENEER JOINTER RETURNER [address] [place] [address] Rotor Balancer Internal Medicine 07/14/24 Bety Bajwa APRN.BAGGAGEMASTER [address] [place] [address] Rotor Balancer Internal Medicine 09/09/24 Goals (unrecognized section and content) Goals may be documented in a n alternate sectionGoals may be documented in an alternate section (unrecognized sect ion and content) No Status Records FoundNo Status Records Found INFORMATION SOURCE (unrecogn ized section and content) DATE CREATED AUTHOR 03/01/2024 [facility] DATE CREATED AUTHOR AUTHOR'S MARY ATION 02/24/2025 [facility] FOR RECORDS PERTAINING TO PATIENTS WHO ARE [...] BE BASED ON THE PRIMARY CLINICAL RECORDS. [employer] provides no warranty or guarantee of the accuracy or completeness of information in this document.
== END | disposition home or self-care (01) ==
PROVIDERS: PCP Internal Medicine; Referring Provider Urology; Visit Provider Urology
DX: Z01.810 Encounter for preprocedural cardiovascular examination (principal)
CPT/HCPCS: 93005

== ENCOUNTER → 2025-03-24 | Outpatient (CLI) | payer BC, SELFPAY ==
--- OUTSIDE RECORDS SUMMARY | 2025-03-24 06:55 | XMS RPT_ITS | CCD ---
Author Organization [facility] Care Team Providers Care Carpenter Repair Name Role Phone Molly Kearns MD Primary Care Provider Dr. Molly Kearns Primary Care Provider Dr. Noe Barbour Emergency Provider Dr. Darrius Rubalcava Admit Provider Dr. Darrius Rubalcava Attending Provider [phone] Darrius Rubalcava Other Provider Dr. Bryson Merritt Attending Provider [phone] Friend, Dr. Kasper Attending Provider Dr. Mao Yadav Other Provider UnavailMolly Vargas MD Primary Care Provider Dr. Molly Kearns Primary Care Provider [phone] Dr. Molly Kearns Referring Provider Dr. Ebenezer Arias Attending Provider [phone] Viry Paul [...] Talampas, Molly D Primary Care Unavailable Bajwa INTAKE MANAGER.GILL TENDER, Bety Unavailable Gloria INTAKE MANAGER.SALES ENGINEER ENGINEERED PRODUCTS, Jean Unavailable Gloria INTAKE MANAGER.SALES ENGINEER ENGINEERED PRODUCTS, Jean Unavailable Gloria INTAKE MANAGER.SALES ENGINEER ENGINEERED PRODUCTS, Jean Unavailable Gloria INTAKE MANAGER.SALES ENGINEER ENGINEERED PRODUCTS, Jean Unavailable Bajwa INTAKE MANAGER.GILL TENDER, Bety Unavailable TALAMPAS, MOLLY D Referring Unavailable [...] crowe [Other] Propensity to adverse reactions 5 [facility] Work Phone: (3 sources) Clemastine Drug Allergy 1 [facility] (3 sources) Pseudoephedrine Drug Allergy 1 [facility] (1 source) Clemastine Drug Allergy 4 [facility] (1 source) Pseudoephedrine Drug Allergy 4 [facility] Medications Current Medications Medication Drug [...] m outh once daily. Flash Glucose Scanning [place] (Freestyle Brenda 14 Day [place]) mis (1 source) Start: 03-18-2023 Flash Glucose Scanning [place] (Freestyle Brenda 14 Day [place]) [facility] Active 0 .ROUTE March 18, 2023 12:00am [...] on above: Take one(1) tablet d aily. 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] 12-02-2023 Episodic Other inflammatory [...] 08-31-2015 Episodic Other aftercare (1 source) Other fci (current) drug therapy; Translations: [Encounter for long-term current use of medication] Onset: 03-06-2024 Episodic Other aftercare (2 sources) USP (current) use of insulin; Translations: [Type 2 diabetes mellitus with hyperglycemia, with long-term current use of insulin (HCC)] Onset: 03-06-2024 Episodic Other nutritional; endocrine; and metabolic disorders (20 sources) Obesity; Translations: [Obesity, unspecified] Resolved: 03-23-2015 03-23-2015 Chronic Residual codes; unclassified (20 sources) Sleep apnea; Translations: [Sleep apnea, unspecified] Resolved: 09-11-2016 09-11-2016 Chronic Results Test Name Value Interpretation Reference Range Facility [facility] 01-18-2025 [facility] Telephone (INTMWS) LONNIE GAVIRIA ([id number]) 1965 M Date Time Provider Department 01/18/25 [...] kidney stones [N20.0] Order(s):CONSULT TO NON-CCF FACILITY [[id number]] Order #: [id number] Prescriptions as of 01/20/2025 - insulin lispro [...] Encounter Status:Closed by GIULIANA HARDIN on 01/20/25 [facility] CNOVon 01-13-2025 CNOV Office Visit (INTMWS) LONNIE GAVIRIA ([id number]) 1965 M Date Time Provider Department 01/13/25 [...] feeling like somebody [hit] a fist right here, accompanied by diaphoresis and hot flashes. The [...] Sister o (more content not included)... [facility] Nurse Visit (FAMPWS) LONNIE GAVIRIA ([id number]) 1965 M Date Time Provider Department 01/01/25 3:00 PM [facility] today, we [...] 6MO-64YR, TRIVALENT (AFLURIA, FLUARIX, FLULAVAL, FLUVIRIN, FLUZONE) [[id number]] Order #: [id number] Prescriptions as of 01/01/2025 - gemfibrozil (LOPID) [...] needles, DISPOSABLE, (PEN NEEDLE) 31 gauge x /16 Use one needle per dose. 4 per [...] Encounter Status:Closed by NINOSKA ODONNELL on 01/01/25 [facility] CNPRiya 12-28-2024 [facility] Telephone (INTMWS) LONNIE GAVIRIA ([id number]) 1965 M Date Time Provider Department 12/28/24 MOLLY KEARNS INTWS During your visit today, [...] Fully Assessed Reason for Visit: Patient Question [5624] Prescriptions as of 12/28/2024 - gemfibrozil (LOPID) [...] Status:Closed by GIULIANA HARDIN on 12/28/24 Normal [facility] CBC panel Auto (Bld)on 12-23 Erythrocyte distribution width (RBC) [Ratio] 12.0 % Normal 11.5-15.0 [facility] Comment on above: Order Comment: Speci men Type: BLOOD SPECIMENOrdering Facility: [facility] Address: [address] [place] [address] Performed By: #### 5 8410-2 ####[facility] [id number] [address] [place] Hematocrit (Bld) [Volume fraction] 44.2 % Normal 39.0-51.0 [facility] Comment on above: Order Comment: Speci men Type: BLOOD SPECIMENOrdering Facility: [facility] Address: [address] [place] [address] Performed By: #### 5 8410-2 ####[facility] [id number] [place] [address] [place] Hemoglobin (Bld) [Mass/Vol] 15.9 g/dL Normal 13.0-17.0 [facility] Comment on above: Order Comment: Speci men Type: BLOOD SPECIMENOrdering Facility: [facility] Address: [address] [place] [address] Performed By: #### 5 8410-2 ####[facility] [id number] [place] [address] [place] MCH (RBC) [Entitic mass] 31.7 pg Normal 26.0-34.0 [facility] Comment on above: Order Comment: Speci men Type: BLOOD SPECIMENOrdering Facility: [facility] Address: [address] [place] [address] Performed By: #### 5 8410-2 ####[facility] [id number] [place] [address] [place] MCHC (RBC) [Mass/Vol] 36.0 g/dL Normal 30.5-36.0 [facility] Comment on above: Order Comment: Speci men Type: BLOOD SPECIMENOrdering Facility: [facility] Address: [address] [place] [address] Performed By: #### 5 8410-2 ####[facility] CLAY COUNTYNCSHONDA [id number] [place] [address] [place] MCV (RBC) [Entitic vol] 88.0 fL Normal 80.0-100.[address] [facility] Comment on above: Order Comment: Speci men Type: BLOOD SPECIMENOrdering Facility: [facility] Address: [address] [place] [address] Performed By: #### 5 8410-2 ####[facility] CLAY COUNTYNCPHILLIPA [id number] [place] [address] [place] Nucleated RBC (Bld) [#/Vol] 10*3/uL Normal <0.01 [facility] Comment on above: Order Comment: Speci men Type: BLOOD SPECIMENOrdering Facility: [facility] Address: [address] [place], [place] [address] Performed By: #### 5 8410-2 ####[facility] CLAY COUNTYNCLIA [id number] [place] [address] [place] Platelet mean volume (Bld) [Entitic vol] 11.4 fL Normal 9.0-12.7 [facility] Comment on above: Order Comment: Speci men Type: BLOOD SPECIMENOrdering Facility: [facility] Address: [address] [place] [address] Performed By: #### 5 8410-2 ####[facility]CL[facility] [id number] [place] [address] [place] Platelets (Bld) [#/Vol] 198 10*3/uL Normal 150-400 [facility] Comment on above: Order Comment: Speci men Type: BLOOD SPECIMENOrdering Facility: [facility] Address: [address] [place], [place] [address] Performed By: #### 5 8410-2 ####[facility] CLAY COUNTYNCLIA [id number] [place] [address] [place] [facility] RBC (Bld) [#/Vol] 5.02 10*6/uL Normal 4.20-6.00 [facility] Comment on above: Order Comment: Speci men Type: BLOOD SPECIMENOrdering Facility: [facility] Address: [address] [place], [place] [address] Performed By: #### 5 8410-2 ####[facility] CLAY COUNTYNCLIA [id number] [place] [address] [place] WBC (Bld) [#/Vol] 5.54 10*3/uL Normal 3.70-11.00 [facility] Comment on above: Order Comment: Speci men Type: BLOOD SPECIMENOrdering Facility: [facility] Address: [address] [place], [place] [address] Performed By: #### 5 8410-2 ####[facility] CLAY COUNTYNCLIA [id number] [place] [address] [place] [facility] Comprehensive metabolic 2000 panelon 12-23-2024 Albumin [Mass/Vol] 4.7 g/dL Normal 3.9-4.9 [facility] Comment on above: Order Comment: Speci men Type: BLOOD SPECIMENOrdering Facility: [facility] Address: [address] [place] [address] Performed By: #### 2 4323-8 ####[facility] MILLTOWNCL[facility] [id number] [place] [address] [place] ALP [Catalytic activity/Vol] 59 U/L Normal 38-113 [facility] Comment on above: Order Comment: Speci men Type: BLOOD SPECIMENOrdering Facility: [facility] Address: [address] [place] [address] Performed By: #### 2 4323-8 ####[facility] MILLTOWNCLIA [id number] [place] [address] [place] ALT [Catalytic activity/Vol] 15 U/L Normal 10-54 [facility] Comment on above: Order Comment: Speci men Type: BLOOD SPECIMENOrdering Facility: [facility] Address: [address] [place] [address] Performed By: #### 2 4323-8 ####[facility]PITALWNCLIA [id number] [place] [address] [place] Anion gap [Moles/Vol] 9 mmol/L Normal 8-15 [facility] Comment on above: Order Comment: Speci men Type: BLOOD SPECIMENOrdering Facility: [facility] Address: [address] [place] [address] Performed By: #### 2 4323-8 ####[facility] CLAY COUNTYNCLIA [id number] [place] [address] [place] AST [Catalytic activity/Vol] 20 U/L Normal 14-40 [facility] Comment on above: Order Comment: Speci men Type: BLOOD SPECIMENOrdering Facility: [facility] Address: [address] [place] [address] Performed By: #### 2 4323-8 ####[facility] MILL[facility]OWNCL[facility] [id number] [place] [address] [place] Bilirubin [Mass/Vol] 1.1 mg/dL Normal 0.2-1.3 [facility] Comment on above: Order Comment: Speci men Type: BLOOD SPECIMENOrdering Facility: [facility] Address: [address] [place] [address] Performed By: #### 2 4323-8 ####[facility]UCKWNCL[facility] [id number] [place] [address] [place] Calcium [Mass/Vol] 9.7 mg/dL Normal 8.5-10.2 [facility] Comment on above: Order Comment: Speci men Type: BLOOD SPECIMENOrdering Facility: [facility] Address: [address] [place] [address] Performed By: #### 2 4323-8 ####[facility] CLAY COUNTYNCLIA [id number] [place] [address] [place] Chloride [Moles/Vol] 104 mmol/L Normal 98-107 [facility] Comment on above: Order Comment: Speci men Type: BLOOD SPECIMENOrdering Facility: [facility] Address: [address] [place] [address] Performed By: #### 2 4323-8 ####[facility] CLAY COUNTYNCLIA [id number] [place] [address] [place] CO2 [Moles/Vol] 25 mmol/L Normal 22-30 [facility] Comment on above: Order Comment: Speci men Type: BLOOD SPECIMENOrdering Facility: [facility] Address: [address] [place] [address] Performed By: #### 2 4323-8 ####[facility] CLAY COUNTYNCLIA [id number] [place] [address] [place] Creatinine [Mass/Vol] 0.96 mg/dL Normal 0.73-1.22 [facility] Comment on above: Order Comment: Speci men Type: BLOOD SPECIMENOrdering Facility: [facility] Address: [address] [place] [address] Performed By: #### 2 4323-8 ####[facility] HOSPITALWNCLI [id number] [place] [address] [place] eGFRcr SerPlBld CKD-EPI 2020 92 mL/min/1.73m??? Normal >=60 [facility] Comment on above: Order Comment: Jairon leigh Type: BLOOD SPECIMENOrdering Facility: [facility] Address: [address] [place] [address] Result Comment: Lien mated Glomerular Filtration Rate [...] actual GFR. Performed By: #### 2 4323-8 ####[facility] [id number] [place] [address] [place] Glucose [Mass/Vol] 149 mg/dL High 74-99 [facility] Comment on above: Order Comment: Jairon leigh Type: BLOOD SPECIMENOrdering Facility: [facility] Address: [address] [place] [address] Result Comment: The [place] Diabetes Association (ADA) provides guidance for cutoff [...] Standards of Medical Care in Diabetes 2016, [place] [employer]. Diabetes Care. 2016.39(Suppl 1). Performed By: #### 2 4323-8 ####[facility] CLAY COUNTYNCLIA [id number] [place] [address] [place] Potassium [Moles/Vol] 4.6 mmol/L Normal 3.7-5.1 [facility] Comment on above: Order Comment: Speci men Type: BLOOD SPECIMENOrdering Facility: [facility] Address: [address] [place] [address] Performed By: #### 2 4323-8 ####[facility]CL[facility] [id number] [place] [address] [place] Protein [Mass/Vol] 6.8 g/dL Normal 6.3-8.0 [facility] Comment on above: Order Comment: Speci men Type: BLOOD SPECIMENOrdering Facility: [facility] Address: [address] [place] [address] Performed By: #### 2 4323-8 ####[facility] MILLWNCL[facility] [id number] [place] [address] [place] Sodium [Moles/Vol] 138 mmol/L Normal 136-144 [facility] Comment on above: Order Comment: Speci men Type: BLOOD SPECIMENOrdering Facility: [facility] Address: [address] [place] [address] Performed By: #### 2 4323-8 ####[facility] MILLVIKASHWNCLIA [id number] [place] [address] [place] Urea nitrogen [Mass/Vol] 17 mg/dL Normal 9-24 [facility] Comment on above: Order Comment: Speci men Type: BLOOD SPECIMENOrdering Facility: [facility] Address: [address] [place] [address] Performed By: #### 2 4323-8 ####[facility]CL[facility] [id number] [place] [address] [place] Ferritin SerPl-mCncon 2024 Ferritin [Mass/Vol] 364.0 ng/mL Normal 30.3-565.7 [facility] Comment on above: Order Comment: Jairon leigh Type: BLOOD SPECIMENOrdering Facility: [facility] Address: [address] [place] [address] Performed By: #### 5 0190-8, 2276-4 ####[facility] LABCLIA [id number] [address]#### 36944-2 ####[facility] LABCLIA [id number] [address] [id number] [place], [place] [address] [place] [address] HbA1c (Bld)on 12-23-2024 Average glucose Estimated from glycated hemoglobin (Bld) [Mass/Vol] 128 mg/dL Normal [facility] Comment on above: Order Comment: Jairon leigh Type: BLOOD SPECIMENOrdering Facility: [facility] Address: [address] [place] [address] Result Comment: eAG: (Estimated average glucose) is a calculated value from HgbA1c and is veterans contact representative of the average blood glucose level in the last 2-3 month period. Performed By: #### 5 5454-3 ####[facility] LABIA [id number] [address] [place] [facility] HbA1c (Bld) [Mass fraction] 6.1 % High 4.3-5.6 [facility] Comment on above: Order Comment: Jairon [facility] Type: BLOOD SPECIMENOrdering Facility: [facility] Address: [address] [place] [address] Result Comment: Amer [place] Diabetes Association guidelines indicate that patients with HgbA1c in the range 5.7-6.4% are at increased risk for development of diabetes, and intervention by lifestyle modification may be beneficial. HgbA1c greater or equal to 6.5% is considered diagnostic of diabetes. Performed By: #### 5 5454-3 ####[facility] LABCLIA [id number] [facility] [place] [id number] [place] Iron and Iron binding capaci ty panelon 12-23-2024 Iron [Mass/Vol] 173 ug/dL Normal 41-186 [facility] Comment on above: Order Comment: Speci men Type: BLOOD SPECIMENOrdering Facility: [facility] Address: [address] [place] [address] Performed By: #### 5 0190-8, 2275- ####[facility] LABCLIA [id number] [place] [id number] [place]#### 86648-0 ####[facility] LABCLIA [id number] [place] [address] [place] [facility] [id number] [place] [address] [place] Iron binding capacity [Mass/Vol] 411 ug/dL High 232-386 [facility] Comment on above: Order Comment: Speci men Type: BLOOD SPECIMENOrdering Facility: [facility] Address: [address] [place] [address] Performed By: #### 5 0190-8, 2275-07 ####[facility] LABCLIA [id number] [place] [address] [place]#### 01040-9 ####[facility] LABCLIA [id number] [address], [facility] [place] [facility] [id number] [place] [address] [place] Iron/TIBC [Molar ratio] 42.1 % Normal 15.0-57.[address] [facility] Comment on above: Order Comment: Speci men Type: BLOOD SPECIMENOrdering Facility: [facility] Address: [address] [place] [address] Performed By: #### 5 0190-8, 2275-07 ####[facility] LABCLIA [id number] [address], [place] [address] [place]#### 86932-3 ####[facility] LABCLIA [id number] [facility] [address], [facility] [place] OF [facility] [id number] [place] [address] [place] Lipid 1996 panelon 5 Cholesterol [Mass/Vol] 146 mg/dL Normal <200 [facility] Comment on above: Order Comment: Speci men Type: BLOOD SPECIMENOrdering Facility: [facility] Address: [address] [place] [address] Result Comment: <200 mg/dL, Desirable 200-239 mg/dL, Borderline high >239 mg/dL, High Performed By: #### 5 0190-8, 2275-07 ####[facility] LABCLIA [id number] [address], [place] [address] [place]#### 31882-0 ####[facility] LABCLIA [id number] [address], [address] STATES OF [facility] [id number] [place] [address] [place] Cholesterol in HDL [Mass/Vol] 30 mg/dL Low >39 [facility] Comment on above: Order Comment: Speci men Type: BLOOD SPECIMENOrdering Facility: [facility] Address: [address] [place] [address] Result Comment: 40-5 9 mg/dL, Acceptable >59 mg/dL, High: Negative risk factor for coronary heart disease <40 mg/dL, Low: Positive risk factor for coronary heart disease Performed By: #### 5 0190-8, 2275- ####[facility] LABCLIA [id number] [place] [address] [place]#### 84604-0 ####[facility] LABCLIA [id number] [address] [id number] [address] [place] Cholesterol in LDL [Mass/Vol] 88 mg/dL Normal <100 [facility] Comment on above: Order Comment: Speci men Type: BLOOD SPECIMENOrdering Facility: [facility] Address: [address] [place] [address] Result Comment: <100 mg/dL, Optimal 100-129 mg/dL, Near optimal/above optimal 130-159 mg/dL, Borderline high 160-189 mg/dL, High >189 mg/dL, Very high Secondary prevention optimal LDL Cholesterol levels are recommended to be <70 mg/dL LDL cholesterol is calculated using the Ward-NIH equation. Performed By: #### 5 0190-8, 2276-4 ####[facility] LABCLIA [id number] [address] [place]#### 72479-6 ####[facility] LABIA [id number] [address] [id number] [address] [place] Cholesterol in LDL/Cholesterol in HDL [Mass ratio] 2.93 {ratio} High <2.54 [facility] Comment on above: Order Comment: Alexanderrashid leigh Type: BLOOD SPECIMENOrdering Facility: [facility] Address: [address] [place] [address] Result Comment: Wiley hurst: 1. National Cholesterol Education Program ATP III Guideline At-A-Glance Quick Desk Reference: National Heart, Lung, and Blood [place]. National Institutes of Health. 2001: NIH Publication No. 01-3305. 2. An International Atherosclerosis Society position paper: global recommendations for the management of dyslipidemia: executive summary, Atherosclerosis. 2014: 232(2):410-413. Performed By: #### 5 0190-8, 2275- ####[facility] LABCLIA [id number] [facility] [address] [place] [address] [place]#### 15538-2 ####[facility] LABCLIA [id number] [facility] [address] [place] [address] [facility] [id number] [address] [place] Cholesterol in VLDL [Mass/Vol] 25 mg/dL Normal <30 [facility] Comment on above: Order Comment: Speci men Type: BLOOD SPECIMENOrdering Facility: [facility] Address: [address] [place] [address] Performed By: #### 5 0190-8, 2275-07 ####[facility] LABCLIA [id number] [facility] [address], [address] [place]#### 27168-4 ####[facility] LABCLIA [id number] [facility] [address], [facility] [place] [facility] [id number] [place] [address] [place] Cholesterol non HDL [Mass/Vol] 116 mg/dL Normal <130 [facility] Comment on above: Order Comment: Speci men Type: BLOOD SPECIMENOrdering Facility: [facility] Address: [address] [place] [address] Result Comment: <130 mg/dL, Optimal 130-159 mg/dL, Near optimal/above optimal 160-189 mg/dL, Borderline high 190-219 mg/dL, High >219 mg/dL, Very high Secondary prevention optimal non HDL Cholesterol levels are recommended to be <100 mg/dL Performed By: #### 5 0190-8, 2275- ####[facility] LABCLIA [id number] [address] [place] [address] [place]#### 19969-3 ####[facility] LABCLIA [id number] [address] [place] [address] [place] AMERICAUC [facility] HOSPITALLIA [id number] [place] [address] [place] Cholesterol.total/Choles terol in HDL [Mass ratio] 4.87 {ratio} Normal <5.10 [facility] Comment on above: Order Comment: Speci men Type: BLOOD SPECIMENOrdering Facility: [facility] Address: [address] [place] [address] Performed By: #### 5 0190-8, 2275-07 ####[facility] LABCLIA [id number] [address] [place] [address] [place]#### 02497-2 ####[facility] LABCLIA [id number] [address] [place] [address] [place] [facility] [id number] [place] [address] [place] FASTING TIME 12 hrs Normal [facility] Comment on above: Order Comment: Speci men Type: BLOOD SPECIMENOrdering Facility: [facility] Address: [address] [place] [address] Performed By: #### 5 0190-8, 2275-07 ####[facility] LABCLIA [id number] [address] [place] [address] [place]#### 17037-2 ####[facility] LABCLIA [id number] [address] [place] [address] [place] AMERICAHCA [facility]PITALA [id number] [place] [address] [place] Triglyceride [Mass/Vol] 159 mg/dL High <[address] [facility] Comment on above: Order Comment: Speci men Type: BLOOD SPECIMENOrdering Facility: [facility] Address: [address] [place] [address] Result Comment: <150 mg/dL, Normal 150-199 mg/dL, Borderline high 200-499 mg/dL, High >499 mg/dL, Very high Performed By: #### 5 0190-8, 2276-4 ####[facility] LABCLIA [id number] [address]#### [address]-2 ####[facility] LABIA [id number] [address] [id number] [place] [id number] [place] [address] CNPR[facility] 10-12-2024 [facility] (INTMWS) LONNIE GAVIRIA ([id number]) 1965 M Date Time Provider Department 10/12/24 MOLYL KEARNS INTWS During your visit today, we recorded the following information about you: Jewell Garnica LPN 10/12/2024 8:20 AM Signed Electronic PA reviewed and completed for Epiviose 2 sensors. This was approved. Prior authorization approved Payer: Sanju Note from payer: SANTO Case: [id number], Status: Partially Approved, Coverage Starts on: 10/09/2024 12:00:00 AM, Coverage Ends on: 10/09/2025 12:00:00 AM. Approval Details Authorization number: [id number] Authorized from October 09, 2024 to October [...] destination. To be filled at: e- [id number] [place] [address] - [address] [facility] [phone] 4605 Pharmacy notified. Sofi Rapp RN 10/15/2024 [...] know information from PA below. Authorization number: [id number] Authorized from October 09, 2024 to October [...] Encounter Status:Closed by JEWELL GARNICA on [facility]12[facility]24 [facility] Telephone (INTMWS) LONNIE GAVIRIA ([id number]) 1965 M Date Time Provider Department 10/06/24 MOLLY KEARNS INTMWS During your visit today, we recorded the following information about you: Jewell Garnica LPN 10/06/2024 8:34 AM Signed Electronic PA rec'd for freestyle brenda sensors. Bel Barnes 10/09/2024 2:43 PM Signed Patient is checking on status. Please send Prior Authorization to [facility] if approved and notify patient. [phone] Craig Clark RN 10/10/2024 8:27 AM Signed Per med PA, sensors have been approved. Authorization number: [id number] Authorized from October 09, 2024 to October 09, 2025 Information received electronically from payer Called pt and notified of approval. Sent the above information to pt's WiN MSt for reference if he speaks with [facility] in [place] and they say they are still waiting [...] Encounter Status:Closed by CRAIG CLARK on 10/10/24 [facility] CNNURSEon 07-24-2024 [facility] Nurse Visit (FAMPWS) LONNIE GAVIRIA ([id number]) 1965 M Date Time Provider Department 07/24/24 3:45 PM [place] [facility] During your visit today, we [...] Encounter Status:Closed by NINOSKA ODONNELL on 07/24/24 Normal [facility] 07-02-2024 [facility] (GASTA5) Mer LONNIE DENTON ([id number]) 1965 M Date Time Provider Department 07/02/24 FRANCISCO SANCHEZ GASTA5 During your visit today, we recorded the following information about you: Matthieu Gamboa 07/02/2024 9:27 AM Signed Pt called in Fibroscan order needed Matthieu Gamboa District Sales Manager Jaik Ferrell RN 07/02/2024 9:54 AM Signed Usually, [...] needles, DISPOSABLE, (PEN NEEDLE) 31 gauge x /16 Use one needle per dose. 4 per [...] Encounter Status:Closed by JAKI LEBRON on 07/02/24 Normal [facility] CNOVon 06-22-2024 CNOV Office Visit (INTMWS) LONNIE GAVIRIA ([id number]) 1965 M Date Time Provider Department 06/22/24 4:00 PM MOLLY KEARNS INTMWS During your visit today, we recorded the following information about you: Pulse Blood pressure Weight Height 81/minute 132/60 83.3 kg 1.77 m Molly Kearns MD 07/22/2024 1:06 PM Signed This note was created using Jetpacriter. Subjective Lonnie Denton is a 58 year [...] pain was so severe that he was crying out in pain and required assistance with dressing. The pain [...] cm (5' (more content not included)... Normal [facility] Hepatic function 2000 panelo n 06-05-2024 Albumin [Mass/Vol] 5.0 g/dL High 3.9-4.9 [facility] Comment on above: Order Comment: Speci men Type: BLOOD SPECIMENOrdering Facility: [facility] Address: [address] [place] [address] Performed By: #### 2 4325-3 ####[facility] [id number] [place] [id number] [place] ALP [Catalytic activity/Vol] 65 U/L Normal 38-113 [facility] Comment on above: Order Comment: Speci men Type: BLOOD SPECIMENOrdering Facility: [facility] Address: [address] [place] [address] Performed By: #### 2 4325-3 ####[facility] RAJESH MILLTOWNCLIA [id number] [place] [address] [place] ALT [Catalytic activity/Vol] 20 U/L Normal 10-54 [facility] Comment on above: Order Comment: Speci men Type: BLOOD SPECIMENOrdering Facility: [facility] Address: [address] [place] [address] Performed By: #### 2 4325-3 ####[facility] MILL[facility]OWNCLIA [id number] [place] [address] [place] AST [Catalytic activity/Vol] 27 U/L Normal 14-40 [facility] Comment on above: Order Comment: Speci men Type: BLOOD SPECIMENOrdering Facility: [facility] Address: [address] [place] [address] Performed By: #### 2 4325-3 ####[facility] MILLTOWNCLIA [id number] [place] [address] [place] Bilirubin [Mass/Vol] 1.3 mg/dL Normal 0.2-1.3 [facility] Comment on above: Order Comment: Speci men Type: BLOOD SPECIMENOrdering Facility: [facility] Address: [address] [place] [address] Performed By: #### 2 4325-3 ####[facility] MILL[facility]OWNCLIA [id number] [place] [address] [place] Bilirubin.conjugated [Mass/Vol] 0.4 mg/dL High <0.3 [facility] Comment on above: Order Comment: Speci men Type: BLOOD SPECIMENOrdering Facility: [facility] Address: [address] [place] [address] Performed By: #### 2 4325-3 ####[facility] MILL[facility]OWNCL[facility] [id number] [place] [address] [place] Protein [Mass/Vol] 7.5 g/dL Normal 6.3-8.0 [facility] Comment on above: Order Comment: Speci men Type: BLOOD SPECIMENOrdering Facility: [facility] Address: [facility] [place] [address] Performed By: #### 2 4325-3 ####[facility] RAJESH [facility] [id number] [place], [place] [id number] [place] [address] OF [place] CNOVon 03-25-2024 CNOV Office Visit (GASTA5) LONNIE GAVIRIA ([id number]) 1965 M Date Time Provider Department 03/25/24 [...] (97.7 ?F) (Temporal) Ht 177 cm (5' 9.69) Wt 84.4 kg (186 lb 1.1 oz) [...] Francisco Sanchez MD Referring Provider: FRANCISCO SANCHEZ [[id number]] Allergies As of Date: 03/25/2024 (No Known [...] Encounter Status:Closed by FRANCISCO SANCHEZ on 03/25/24 [facility] CNOVSPon 03-12-2024 CNOVSP Visit (SP) Office (HEMAWS) O YAELLONNIE SAHA ([id number]) 1965 M Date Time Provider Department 03/12/24 10:10 AM MITCH HERNANDEZ During your visit today, we recorded the following information about you: Temperature Pulse Blood pressure Weight 98.3 degrees 85/minute 153/75 84.6 kg Height 1.77 m Cara Horne LPN 03/12/2024 9:57 AM Signed New Pt.. Discuss recent IgG values NICOLE Guardado Paul A, DO 03/12/2024 11:13 AM Signed Patient referred by Jean Sylvester APRN.[employer] for hypogammaglobulinemi a. HPI: The patient is [...] total IgG. I spent time going through [facility] records. He was admitted summer 2022 for acute hepatitis and cholecystitis as well as pancreatitis. Underwent cholecystectomy. Had extensive workup which included serum immunoglobulins wherein the total IgG was 579 and all 4 subclasses of IgG were normal. Serum protein electrophoresis demonstrated no monoclonal protein. Immunofixation of the serum negative. Since he was diagnosed with steatohepatitis. [facility]. Liver biopsy slides reviewed at [facility]. 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 Swan loratadine (CLARITIN) 10 mg tablet [...] Diabetes Patern (more content not included)... Normal [facility] 03-09-2024 CNPN Telephone (INTMWS) Mer DENTONLONNIE E ([id number]) 1965 M Date Time Provider Department 03/09/24 JEAN SYLVESTER INTMWS During your visit today, we recorded the following information about you: Jean Sylvester APRN.RUCHI 03/09/2024 10:44 AM Signed Please let Lonnie [...] [D80.1] Order(s):CONSULT TO HEMATOLOGY/ONCOLOGY [19990422] Order #: [id number]: 1 FUTURE Prescriptions as of 03/10/2024 - [...] Status:Closed by JEAN SYLVESTER on 03/09/24 Normal [facility] ALBUMIN/CREATININE RATIO, UR INEon 03-06-2024 Albumin DL <= 20 mg/L (U) [Mass/Vol] mg/dL Normal [facility] Comment on above: Order Comment: Speci men Type: URINE SPECIMENOrdering Facility: [facility] Address: [address] [place] [address] Performed By: #### U ACR ####[facility] LABCLIA [id number] [facility] [place] [address] [place] Albumin/Creatinine (U) [Mass ratio] <9 Normal <30 [facility] Comment on above: Order Comment: Speci men Type: URINE SPECIMENOrdering Facility: [facility] Address: [address] [place] [address] Result Comment: Adul t Male and Female Nephrotic Criteria: <30 mg/g is considered normal to mildly increased 30-300 mg/g is considered moderately increased >300 mg/g is considered severely increased KDIGO. (2013). KDIGO 2012 Clinical Practice Guideline for the Evaluation and Management of Chronic Kidney Disease. Official Journal of the International Society of Nephrology, 3(1), 1-150. Performed By: #### U ACR ####[facility] LABIA [id number] [place] [address] [place] Creatinine (U) [Mass/Vol] 130.7 mg/dL Normal 20.0-300.0 [facility] Comment on above: Order Comment: Speci men Type: URINE SPECIMENOrdering Facility: [facility] Address: [address] [place] [address] Performed By: #### U ACR ####[facility] LABIA [id number] [place] [address] [place] CBC panel Auto (Bld)on 03-06 Erythrocyte distribution width (RBC) [Ratio] 12.2 % Normal 11.5-15.0 [facility] Comment on above: Order Comment: Speci men Type: BLOOD SPECIMENOrdering Facility: [facility] Address: [address] [place] [address] Performed By: #### 5 8410-2 ####[facility] [id number] [address] [place] Hematocrit (Bld) [Volume fraction] 47.9 % Normal 39.0-51.0 [facility] Comment on above: Order Comment: Speci men Type: BLOOD SPECIMENOrdering Facility: [facility] Address: [address] [place] [address] Performed By: #### 5 8410-2 ####[facility] [id number] [place] [address] [place] Hemoglobin (Bld) [Mass/Vol] 16.8 g/dL Normal 13.0-17.0 [facility] Comment on above: Order Comment: Speci men Type: BLOOD SPECIMENOrdering Facility: [facility] Address: [address] [place] [address] Performed By: #### 5 8410-2 ####[facility] [id number] [address] [place] [facility] MCH (RBC) [Entitic mass] 31.1 pg Normal 26.0-34.0 [facility] Comment on above: Order Comment: Speci men Type: BLOOD SPECIMENOrdering Facility: [facility] Address: [address] [place] [address] Performed By: #### 5 8410-2 ####[facility] CLAY COUNTYNCLIA [id number] [address] [place] MCHC (RBC) [Mass/Vol] 35.1 g/dL Normal 30.5-36.0 [facility] Comment on above: Order Comment: Speci men Type: BLOOD SPECIMENOrdering Facility: [facility] Address: [address] [place] [address] Performed By: #### 5 8410-2 ####[facility] CLAY COUNTYNCLIA [id number] [address] [place] MCV (RBC) [Entitic vol] 88.5 fL Normal 80.0-100.[address] [facility] Comment on above: Order Comment: Speci men Type: BLOOD SPECIMENOrdering Facility: [facility] Address: [address] [place] [address] Performed By: #### 5 8410-2 ####[facility] CLAY COUNTYNCLIA [id number] [address] OF [place] Nucleated RBC (Bld) [#/Vol] 10*3/uL Normal <0.01 [facility] Comment on above: Order Comment: Speci men Type: BLOOD SPECIMENOrdering Facility: [facility] Address: [address] [place] [address] Performed By: #### 5 8410-2 ####[facility] [id number] [place] [address] [place] Platelet mean volume (Bld) [Entitic vol] 11.3 fL Normal 9.0-12.7 [facility] Comment on above: Order Comment: Speci men Type: BLOOD SPECIMENOrdering Facility: [facility] Address: [address] [place] [address] Performed By: #### 5 8410-2 ####[facility] [id number] [place] [address] [place] Platelets (Bld) [#/Vol] 198 10*3/uL Normal 150-400 [facility] Comment on above: Order Comment: Speci men Type: BLOOD SPECIMENOrdering Facility: [facility] Address: [address] [place] [address] Performed By: #### 5 8410-2 ####[facility] [id number] [place] [address] [place] RBC (Bld) [#/Vol] 5.41 10*6/uL Normal 4.20-6.00 [facility] Comment on above: Order Comment: Speci men Type: BLOOD SPECIMENOrdering Facility: [facility] Address: [address] [place] [address] Performed By: #### 5 8410-2 ####[facility] [id number] [place] [address] [place] WBC (Bld) [#/Vol] 6.03 10*3/uL Normal 3.70-11.00 [facility] Comment on above: Order Comment: Speci men Type: BLOOD SPECIMENOrdering Facility: [facility] Address: [address] [place] [address] Performed By: #### 5 8410-2 ####[facility] CLAY COUNTYNCLIA [id number] [place] [address] [place] HbA1c (Bld)on 03-06-2024 Average glucose Estimated from glycated hemoglobin (Bld) [Mass/Vol] 123 mg/dL Normal [facility] Comment on above: Order Comment: Jairon leigh Type: BLOOD SPECIMENOrdering Facility: [facility] Address: [address] [place] [address] Result Comment: eAG: (Estimated average glucose) is a calculated value from HgbA1c and is veterans contact representative of the average blood glucose level in the last 2-3 month period. Performed By: #### 5 5454-3 ####[facility] LABIA [id number] [place] [address] [place] HbA1c (Bld) [Mass fraction] 5.9 % High 4.3-5.6 [facility] Comment on above: Order Comment: Jairon leigh Type: BLOOD SPECIMENOrdering Facility: [facility] Address: [address] [place] [address] Result Comment: Amer ican Diabetes Association guidelines indicate that patients with HgbA1c in the range 5.7-6.4% are at increased risk for development of diabetes, and intervention by lifestyle modification may be beneficial. HgbA1c greater or equal to 6.5% is considered diagnostic of diabetes. Performed By: #### 5 5454-3 ####[facility] LABCLIA [id number] [place] [address] [place] Hepatic function 2000 panelo n 03-06-2024 Albumin [Mass/Vol] 5.0 g/dL High 3.9-4.9 [facility] Comment on above: Order Comment: Jairon leigh Type: BLOOD SPECIMENOrdering Facility: [facility] Address: [address] [place] [address] Performed By: #### 2 4325-3 ####[facility] RAJESH [facility] [id number] [place] [address] [place] ALP [Catalytic activity/Vol] 69 U/L Normal 38-113 [facility] Comment on above: Order Comment: Speci men Type: BLOOD SPECIMENOrdering Facility: [facility] Address: [address] [place] [address] Performed By: #### 2 4325-3 ####[facility] [id number] [place] [address] [place] ALT [Catalytic activity/Vol] 21 U/L Normal 10-54 [facility] Comment on above: Order Comment: Speci men Type: BLOOD SPECIMENOrdering Facility: [facility] Address: [address] [place] [address] Performed By: #### 2 4325-3 ####[facility] [id number] [place] [address] [place] AST [Catalytic activity/Vol] 24 U/L Normal 14-40 [facility] Comment on above: Order Comment: Speci men Type: BLOOD SPECIMENOrdering Facility: [facility] Address: [address] [place] [address] Performed By: #### 2 4325-3 ####[facility] [id number] [place] [address] [place] Bilirubin [Mass/Vol] 1.1 mg/dL Normal 0.2-1.3 [facility] Comment on above: Order Comment: Speci men Type: BLOOD SPECIMENOrdering Facility: [facility] Address: [address] [place] [address] Performed By: #### 2 4325-3 ####[facility] [id number] [place] [address] [place] Bilirubin.conjugated [Mass/Vol] 0.3 mg/dL High <0.2 [facility] Comment on above: Order Comment: Speci men Type: BLOOD SPECIMENOrdering Facility: [facility] Address: [address] [place] [address] Result Comment: Resu lts may be falsely decreased due to interference from hemolysis. Suggest reorder as clinically indicated. Performed By: #### 2 4325-3 ####[facility]CLIA [id number] [place] [address] [place] Protein [Mass/Vol] 7.3 g/dL Normal 6.3-8.0 [facility] Comment on above: Order Comment: Speci men Type: BLOOD SPECIMENOrdering Facility: [facility] Address: [address] [place] [address] Performed By: #### 2 4325-3 ####[facility] [id number] [place] [address] [place] IMMUNOGLOBULINS,IGG,IGA,IGMo n 03-06-2024 IgA [Mass/Vol] 86 mg/dL Normal 70-400 [facility] Comment on above: Order Comment: Speci men Type: BLOOD SPECIMENOrdering Facility: [facility] Address: [address] [place] [address] Performed By: #### S ERIMM ####[facility] LABCLIA [id number] [place] [address] [place] IgG [Mass/Vol] 669 mg/dL Low 700-1600 [facility] Comment on above: Order Comment: Speci men Type: BLOOD SPECIMENOrdering Facility: [facility] Address: [address] [place] [address] Performed By: #### S ERIMM ####[facility] LABCLIA [id number] [place] [address] [place] IgM [Mass/Vol] 55 mg/dL Normal 40-230 [facility] Comment on above: Order Comment: Speci men Type: BLOOD SPECIMENOrdering Facility: [facility] Address: [address] [place] [address] Performed By: #### S ERIMM ####[facility] LABCLIA [id number] [place] [address] [place] CNPNon 11-07-2024 CNPN Telephone (INTMWS) Mer DENTONLONNIE E ([id number]) 1965 M Date Time Provider Department 02/27/24 MOLLY KEARNS INTMWS During your visit today, we recorded the following information about you: Traci Jordan RN 02/27/2024 3:30 PM Signed Patient and calls and states that patient had a rash over body that looked like a bullseye. Patient was seen at [facility] where he was tested for lyme disease as well as protein electrophoresis serum. Results are in labs. Patient's Gamma Globulin was at 0.52 which is abnormal low. [facility] had told patient that with the Bullseye [...] in for his doctor appointment. He said [facility] told him to call PCP and ask about his. Pt would like provider to call him back on his cell #. I told him I didn't know if they would get back to him this week. Jean Sylvester APRN.[employer] 02/28/2024 3:50 PM Signed Please let them [...] provider hears from them. GUNNAR Escobar Rosa, APRN.[employer] 03/02/2024 1:47 PM Signed Please return call, let them know hem/onc recommended some follow up blood work to check IGG, IGA, IGM levels. Orders placed. Also can we check on getting the office note from [employer] for this? Thank you! Ginny Lowe LPN 03/02/2024 2:00 PM Signed PATIENT NOTIFIED OF SAME. Will have labs completed 03/06/24 Records released faxed to [employer]. Allergies As of Date: 02/27/2024 (No Known Allergies) Date Reviewed: 12/02/2023 Reviewed by: Lisandra Hendricks LPN - Fully Assessed Reason for Visit: Patient Question [1477] Primary Visit Diagnosis:Hypogammag lobulinemia (HCC) [D80.1] Order(s):IMMUNOGLOBU RUBEN,IGG,IGA,IGM [SQSERIMM] Order #: [id number] FUTURE Prescriptions as of 03/02/2024 - loratadine [...] 08/31/2015 08/16/2023 (more content not included)... Normal [facility] Lyme Antibodies,W [place] LYME IgG INTERP Negative Normal . [facility] Comment on above: Result Comment: Posi tive: 5 of the following Borrelia-specific bands: 18,23,28,30,39,41,45,58, 66, and 93. Negative: No bands or banding patterns which do not meet positive criteria. Performed By: #### L 7000.5800 #### [facility] [address] [place], [address] LYME IgM INTERP Negative Normal . [facility] Comment on above: Result Comment: Note [...] are those recommended by CDC/ASTPHLD. p23=Osp C, j64=nvcgkscjg Note: Sera from individuals with the following may cross react in the Lyme Line Blot assays: other spirochetal diseases (periodontal disease, leptospirosis, relapsing fever, yaws, and pinta); connective autoimmune (Rheumatoid Arthritis and Systemic Lupus Erythematosus and also individuals with Antinuclear Antibody); other infections (Angelica Spotted Fever; Cassandra-Smith Virus, and Cytomegalovirus). Please Note: Lyme immunoblot alone is not recommended for the diagnosis of Lyme disease. Current guidelines recommend the use of a two-tiered approach to Lyme serology testing to improve the sensitivity and specificity of testing. [facility] offers test code 682896 Lyme Disease Serology with Reflex to aid in the diagnosis of Lyme Disease. Performed at: [address] [id number] Turn Supervisor: Renee Cantrell MD, Phone: [phone] Performed By: #### L 7000.5800 #### [facility] [address] [place], [address] P18 Ab Absent Normal . [facility] Comment on above: Performed By: #### L 7000.5800 #### [facility] [address] [place], [address] P23 Ab Absent Normal . [facility] Comment on above: Performed By: #### L 0.5800 #### [facility] [address] [place], [address] P28 Ab Absent Normal . [facility] Comment on above: Performed By: #### L 0.5800 #### [facility] [address] [place], [address] P30 Ab Absent Normal . [facility] Comment on above: Performed By: #### L 7000.5800 #### [facility] [address] [place], [address] P39 Ab Absent Normal . [facility] Comment on above: Performed By: #### L 7000.5800 #### [facility] [address] [place], [address] P41 Ab Absent Normal . [facility] Comment on above: Performed By: #### L 7000.5800 #### [facility] [address] [place], [address] P45 Ab Absent Normal . [facility] Comment on above: Performed By: #### L 7000.5800 #### [facility] [address] [place], [address] P58 Ab Present Abnormal . [facility] Comment on above: Performed By: #### L 7000.5800 #### [facility] [address] [place], [address] P66 Ab Absent Normal . [facility] Comment on above: Performed By: #### L 7000.5800 #### [facility] [address] [place], [address] P93 Ab Absent Normal . [facility] Comment on above: Performed By: #### L [id number] #### [facility] [address] [place], [address] Miscellaneous Lab Procedure 2on 05-07-2023 [facility] [facility] [place] 2 Normal [facility] Comment on above: Order Comment: PROTE CT FROM LIGHT PORPHYRINS RANDOM URINE [id number] Result Comment: TEST RESULTS LIMITS Porphyrins, Qn, [...] III 15 ug/L 0-49 TESTING PERFORMED AT [facility]. ORIGINAL REPORT ON FILE IN LAB CONTAINS ADDITIONAL TEST SITE INFORMATION. Performed By: #### L 801.1543, L801.1541 #### [facility] [address] [place], [address] Gastroenterology Visit Repor ton 05-06-2023 Gastroenterology Visit Report [facility]enter[facility] [address] [facility] [place] [address] OFFICE VISIT Date of Service: 05/06/23 MR#: [id number] Acct: [id number] Name: LONNIE MORA Rep #: [id number] : 1965 Provider: Dr. Ebenezer crowe MD Age/Sex: 57/M Location: [facility] [place] [facility].[place] Status: Signed Intake Vital Signs 04/04/23 10:30 [...] PO DAILY 06/07/20 [History Confirmed 05/06/23] omega 8-qfv-iky-fish oil 1,200 mg (144 mg-216 mg) capsule (Fish Oil) cap PO general health 10/18/22 [History Confirmed 05/06/23] flash glucose scanning reader ([employer] Brenda [address] Day [place]) 03/18/23 [History Confirmed 05/06/23] insulin lispro 100 unit/mL subcutaneous pen (Humalog KwikPen (U-100) Insulin) 4 unit subcut TID 03/18/23 [History Confirmed 05/06/23] potassium citrate 15 mEq (1,620 mg) tablet,extended release 15 meq PO BID 03/18/23 [History Confirmed 05/06/23] nutritional supplement-fiber oral ea PO 05/06/23 [History Confirmed 05/06/23] [facility] Medical History Acute gallstone pancreatitis Diabetes High [...] today for follow up. Patient established to [facility] through [facility] hospitalization 10.18.22-10.23.22 with abdominal pain and loose [...] now and denies any abdominal pain. OV 11.23- Pt doing very well since last visit. Denies any abdominal pain, bowel issues, swelling. Patient and his wanted discussion regarding elevated ferritin, biopsy report and abnormal liver tests OV 124- Pt here to follow up lab tests. [...] eyes Fausto/ (more content not included)... Normal [facility] Miscellaneous Lab Procedureo n 04-28-2023 [facility] [place] [facility] [place] [facility] Comment on above: Order Comment: PROTE CT FROM LIGHT AUTOIMMUNE LIVER [id number] SER/RF Result Comment: TEST RESULTS LIMITS Autoimmune [...] developed and its performance characteristics determined by [facility]. It has not been cleared or approved by the Food and Drug Administration. TESTING PERFORMED AT [facility]. ORIGINAL REPORT ON FILE IN LAB CONTAINS ADDITIONAL TEST SITE INFORMATION. Performed By: #### L 801.1543, L801.1541 #### [facility] [address] [place], [address] Oncology Visit Reporton 03-22 Oncology Visit Report [facility] [place] [facility] [address] [place] [address] OFFICE VISIT Date of Service: 04/04/23 1028 MR#: [id number] Acct: [id number] Name: LONNIE MORA Rep #: [id number] : 1965 From: Viry Paul MD Age/Sex: 57/M Location: [facility] [place] Status: Signed HPI Subjective Date of Service [...] for Hereditary Hemochromatosis revealed a double heterozygous. [facility] Medical History (Updated 04/04/23 @ 12:48 by [...] PO DAILY 06/07/20 [History Confirmed 03/18/23] omega 4-imm-ppx-fish oil 1,200 mg (144 mg-216 mg) capsule (Fish Oil) cap PO general health 10/18/22 [History Confirmed 03/18/23] flash glucose scanning reader ([employer] Brenda 14 Day [place]) 03/18/23 [History Confirmed 03/18/23] insulin lispro 100 unit/mL subcutaneous pen (Humalog KwikPen (U-100) Insulin) 4 unit subcut TID 03/18/23 [History Confirmed 03/18/23] methylcellulose (laxative) 500 mg tablet 500 mg PO DAILY 03/18/23 [History Confirmed 03/18/23] potassium citrate 15 mEq (1,620 mg) tablet,extended release 15 meq PO BID 03/18/23 [History Confirmed 03/18/23] Central Venous Access Central Venous Access: No Laboratory Tests 10/20/22 03/25/2023 [facility] Iron Saturation 24.0 47% (15-57%) Ferritin 88648 H 420 (30-565) 10/22/2022 Liver, CT-guided core biopsy: Liver parenchymal tissue with extensive macro- and microvesicular steatosis, acute and chronic hepatitis, grade 2, stage 2. Exam Physical Exam Narrative ECOG 0 Const alert, oriented x3 and no apparent distress Gen (more content not included)... Normal [facility] Gastroenterology Visit Repor ton 03-18-2023 Gastroenterology Visit Report [facility] Gastroenterology [address] [place] [address] OFFICE VISIT Date of Service: 03/18/23 MR#: [id number] Acct: [id number] Name: LONNIE MORA Rep #: [id number] : 1965 Provider: Dr. Ebenezer crowe MD Age/Sex: 57/M Location: [facility] [place] [facility] Status: Signed with Addenda ADDENDUM by Dr. [...] PO DAILY 06/07/20 [History Confirmed 03/18/23] omega 6-hjh-qkg-fish oil 1,200 mg (144 mg-216 mg) capsule (Fish Oil) cap PO general health 10/18/22 [History Confirmed 03/18/23] tramadol 50 mg tablet 50 mg PO Q6H PRN pain #10 tabs 10/22/22 [Rx Confirmed 03/18/23] flash glucose scanning reader ([employer]da [address] Day [place]) 03/18/23 [History Confirmed 03/18/23] insulin lispro 100 unit/mL subcutaneous pen (Humalog KwikPen (U-100) Insulin) 4 unit subcut TID 03/18/23 [History Confirmed 03/18/23] methylcellulose (laxative) 500 mg tablet 500 mg PO DAILY 03/18/23 [History Confirmed 03/18/23] potassium citrate 15 mEq (1,620 mg) tablet,extended release 15 meq PO BID 03/18/23 [History Confirmed 03/18/23] [facility] Medical History Acute gallstone pancreatitis Diabetes High cholesterol Hypertension Obstructive sleep apnea Social History Smoking Status: Never smoker HPI HPI Chief Complaint: f/u Details: LONNIE MORA, is a 57 M who presents to the office today for follow up. Patient established to [facility] through [facility] hospitalization 10.18.22-10.23.22 with abdominal pain and loose [...] itchy e (more content not included)... Normal [facility] Absolute lymphocyte countOrd ered By: Bryson Merritt on 10-22-2022 Lymphocytes Auto (Unsp spec) [#/Vol] 0.66 10*3/uL 0.83-4.51 [facility] Basophil percentageOrdered B y: Bryson Merritt on 10-22-2022 Basophils/100 WBC (Bld) 0.1 % 0-1 [facility] Bilirubin [Mass/Vol] 10.60 mg/dL 0.20-1.00 [facility] Comment on above: For patients on eltr ombopag therapy, use of Dimension Gueydan TBIL is not recommended. Chloride [Moles/Vol] 100 mmol/L 98-107 [facility] Eosinophils/100 WBC (Bld) 0.0 % 0-5 [facility] Glucose [Mass/Vol] 275 mg/dL 74-106 [facility] Comment on above: Glucose result great er than or equal to 200 mg/dLsuggests DIABETES MELLITUS per A.D.A. criteria. Neutrophils (Bld) [#/Vol] 9.1 10*3/uL 2.0-7.7 [facility] Neutrophils/100 WBC (Bld) 86.4 % 47-70 [facility] Potassium [Moles/Vol] 3.1 mmol/L 3.5-5.1 [facility] Protein [Mass/Vol] 6.0 g/dL 6.4-8.2 [facility] Comment on above: Moderate Icterus, Re sult may be falsely decreased. Sodium [Moles/Vol] 134 mmol/L 136-145 [facility] WBC (Bld) [#/Vol] 10.5 10*3/uL 4.4-11.0 [facility] Blood erythrocytes count (nu mber/volume)Ordered By: Bryson Merritt on 10-22-2022 RBC (Bld) [#/Vol] 4.52 10*6/uL 4.6-6.2 [facility] Blood hemoglobin measurement (mass/volume)Ordered By: Bryson Merritt on 10-22-2022 Hemoglobin (Bld) [Mass/Vol] 14.1 g/dL 13.0-16.5 [facility] Blood lymphocytes/100 leukoc ytesOrdered By: Bryson Merritt on 10-22-2022 Lymphocytes/100 WBC (Bld) 6.3 % 19-41 [facility] Blood monocytes/100 leukocyt esOrdered By: Bryson Merritt on 10-22-2022 Monocytes/100 WBC (Bld) 6.7 % 0-10 [facility] Blood platelet mean volumeOr dered By: Bryson Merritt on 10-22-2022 Platelet mean volume (Bld) [Entitic vol] 11.9 fL 6.2-12.0 [facility] Determination of erythrocyte mean corpuscular volume (MCV)Ordered By: Bryson Merritt on 10-22-2022 MCV (RBC) [Entitic vol] 90.0 fL 80-94 [facility] Erythrocyte sedimentation ra teOrdered By: Bryson Merritt on 10-22-2022 ESR (Bld) [Velocity] 47 mm/h 0-20 [facility] Glucose Glucometer (dC) [M ass/Vol]Ordered By: Darrius Rubalcava on 10-22-2022 Glucose [Mass/Vol] 379 mg/dL 74-106 [facility] Comment on above: MANAGEMENT OF PATIEN T CARE PER NURSING PROTOCOL Hematocrit Auto (Bld) [Volum e fraction]Ordered By: Bryson Merritt on 10-22-2022 Hematocrit (Bld) [Volume fraction] 40.7 % 40-54 [facility] - Chemistry and C hemistry - challengeOrdered By: Bryson Merritt on 10-22-2022 ALP [Catalytic activity/Vol] 317 U/L 45-117 [facility] ALT [Catalytic activity/Vol] 755 U/L 16-61 [facility] CO2 [Moles/Vol] 29.0 mmol/L 21.0-32.0 [facility] Globulin (S) [Mass/Vol] 3.2 g/dL 2.2-4.2 [facility] Urea nitrogen/Creatinine [Mass ratio] 25.7 mg/mg 10-20 [facility] - Hematology and Cell countsOrdered By: Bryson Merritt on 10-22-2022 Erythrocyte distribution width (RBC) [Entitic vol] 41.0 fL 35.1-43.9 [facility] Erythrocyte distribution width (RBC) [Ratio] 12.3 % 11.6-14.6 [facility] Immature granulocytes/100 WBC (Bld) 0.500 % 0.0-0.9 [facility] Comment on above: IG% - Immature Granu locytes (promyelocytes, myelocytes and metamyelocytes) > 1% indicates that a LEFT SHIFT is Present. MCH (RBC) [Entitic mass] 31.2 pg 27.0-32.0 [facility] Nucleated RBC/100 WBC (Bld) [Ratio] 0 % 0-5 [facility] MCHC Auto (RBC) [Mass/Vol]Or dered By: Bryson Merritt on 10-22-2022 MCHC (RBC) [Mass/Vol] 34.6 g/dL 32-36 [facility] No Panel InformationOrdered By: Bryson Merritt on 10-22-2022 Estimated Creatinine Clearance Calc 105.10 ml/min [facility] Estimated GFR (MDRD) Amer 126 mL/min >60 [facility] Comment on above: GFR Calc Estimated GFR (MDRD) Non-Af Amer 104 mL/min >60 [facility] Comment on above: Non- GFR Calc Platelets bldOrdered By: Ronnell Merritt on 10-22-2022 Platelets (Bld) [#/Vol] 182 10*3/uL 150-450 [facility] Serum or plasma C reactive p rotein measurement (mass/volume)Ordered By: Bryson Merritt on 10-22-2022 CRP [Mass/Vol] 52.30 mg/L 0.0-3.0 [facility] Comment on above: C-Reactive Protein ( CRP) provides useful information for thediagnosis, therapy and monitoring of inflammatory processesand associated diseases. For the evaluation of Relative Riskfor Cardiovascular Disease, a High Sensitivity CRP (HSCRP)should be ordered. Serum or plasma albumin rose urement (mass/volume)Ordered By: Bryson Merritt on 10-22-2022 Albumin [Mass/Vol] 2.8 g/dL 3.2-5.0 [facility] Serum or plasma albumin/glob ulin mass ratioOrdered By: Bryson Merritt on 10-22-2022 Albumin/Globulin [Mass ratio] 0.9 {ratio} 0.9-2.4 [facility] Serum or plasma calcium rose urement (mass/volume)Ordered By: Bryson Merritt on 10-22-2022 Calcium [Mass/Vol] 8.9 mg/dL 8.5-10.1 [facility] Serum or plasma creatinine m easurement (mass/volume)Ordered By: Bryson Merritt on 10-22-2022 Creatinine [Mass/Vol] 0.82 mg/dL 0.70-1.30 [facility] Comment on above: Moderate Icterus, Re sult may be falsely decreased.The validity of the calculated GFR & GFRAA in patients over 70 years has not been determined. Clinical correlation is essential. Serum or plasma urea nitroge n measurement (mass/volume)Ordered By: Bryson Merritt on 10-22-2022 Urea nitrogen [Mass/Vol] 21 mg/dL 7-18 [facility] Thin prep Papanicolaou smear with manual screeningOrdered By: Bryson Merritt on 10-22-2022 Thin prep Papanicolaou smear with manual screening 579 U/L 15-37 [facility] Thin prep Papanicolaou smear with manual screening 5 5-15 [facility] Blood manual differential co mment interpretation (narrative result)Ordered By: Bryson Merritt on 10-21-2022 Manual differential comment Blake (Bld) [Interp] SCANNED [facility] Basophil percentageOrdered B y: Ranjith Friend on 10-20-2022 Ammonia (P) [Moles/Vol] 29.0 umol/L 11-32 [facility] Lactate [Moles/Vol] 1.1 mmol/L 0.4-2.0 [facility] LDH [Catalytic activity/Vol] 528 U/L 87-241 [facility] INR in Blood by Coagulation assayOrdered By: Ranjith Sarmiento on 10-20-2022 INR Coag (Bld) [Relative time] 1.3 {INR} [facility] Iron measurement (mass/mass) Ordered By: Ranjith Sarmiento on 10-20-2022 Iron (Unsp spec) [Mass/Mass] 90 ug/dL 65-175 [facility] - Chemistry and C hemistry - challengeOrdered By: Ranjith Sarmiento on 10-20-2022 CK [Catalytic activity/Vol] 126 U/L 39-308 [facility] - CoagulationOrde red By: Ranjith Sarmiento on 10-20-2022 aPTT Coag (Bld) [Time] 32.1 s 24.1-36.2 [facility] PT Coag (PPP) [Time] 15.9 s 11.7-14.9 [facility] No Panel InformationOrdered By: Ranjith Sarmiento on 10-20-2022 Total Iron Binding Capacity 375 ug/dL 250-450 [facility] No Panel InformationOrdered By: Bryson Merritt on 10-20-2022 Hepatitis A IgM Antibody Negative Negative [facility] Hepatitis B Core IgM Antibody Negative Negative [facility] Hepatitis C Antibody (EIA) Non-Reactive Non Reactive [facility] Hepatitis C Antibody Comment Comment . [facility] Comment on above: Not infected with HC V unless early or acute infection issuspected (which may be delayed in an immunocompromisedindividual), or other evidence exists to indicate HCVinfection.Performed at: [facility] [id number] Director: Edi Arboleda PhD, Phone: [phone] Serum or plasma ferritin ajith surement (mass/volume)Ordered By: Ranjith Sarmiento on 10-20-2022 Ferritin [Mass/Vol] 08899 ng/mL 26-388 [facility] Comment on above: Moderate Icterus, Re sult may be falsely decreased. Serum or plasma hepatitis B virus surface antigen detection by immunoassayOrdered By: Bryson Merritt on 10-20-2022 HBV surface Ag IA Ql Negative Negative [facility] Serum or plasma iron saturat ion measurement (mass fraction)Ordered By: Ranjith Sarmiento on 10-20-2022 Iron saturation [Mass fraction] 24.0 % 15.0-55.0 [facility] Basophil percentageOrdered B y: Darrius Rubalcava on 10-19-2022 Basophil percentage 2.6 mg/dL 2.5-4.9 [facility] - Chemistry and C hemistry - challengeOrdered By: Darrius Rubalcava on 10-19-2022 Lipase [Catalytic activity/Vol] 409 U/L 13-75 [facility] Comment on above: Please note:LIPASE r evised reference range effective 22. New Lipase methodology. Expected to produce lower values than the previous assay method. NEW Reference Range: 13 - 75 U/L Magnesium [Mass/Vol] 1.9 mg/dL 1.6-2.6 [facility] Whole blood hemoglobin A1c/t otal hemoglobin ratio (mass fraction)Ordered By: Bobby Silva on 10-19-2022 HbA1c (Bld) [Mass fraction] 8.3 % 3.8-5.6 [facility] Comment on above: Normal < 5.7 % Predi abetic 5.7 - 6.4 % Diabetic >or= 6.5 % Please note range changes. Absolute lymphocyte countOrd ered By: Noe Barbour on 10-18-2022 Lymphocytes Auto (Unsp spec) [#/Vol] 0.98 10*3/uL 0.83-4.51 [facility] Basophil percentageOrdered B y: Noe Barbour on 10-18-2022 Basophil percentage 0 SEEN /hpf 0-5 [facility] Basophils/100 WBC (Bld) 0.3 % 0-1 [facility] Bilirubin [Mass/Vol] 2.90 mg/dL 0.20-1.00 [facility] Comment on above: For patients on eltr ombopag therapy, use of Dimension Gueydan TBIL is not recommended. Chloride [Moles/Vol] 102 mmol/L 98-107 [facility] Eosinophils/100 WBC (Bld) 0.8 % 0-5 [facility] Glucose [Mass/Vol] 238 mg/dL 74-106 [facility] Comment on above: Glucose result great er than or equal to 200 mg/dLsuggests DIABETES MELLITUS per A.D.A. criteria. Neutrophils (Bld) [#/Vol] 10.1 10*3/uL 2.0-7.7 [facility] Neutrophils/100 WBC (Bld) 83.9 % 47-70 [facility] Potassium [Moles/Vol] 4.4 mmol/L 3.5-5.1 [facility] Comment on above: Moderate Hemolysis, Result may be falsely increased. Protein [Mass/Vol] 7.5 g/dL 6.4-8.2 [facility] Sodium [Moles/Vol] 137 mmol/L 136-145 [facility] WBC (Bld) [#/Vol] 12.0 10*3/uL 4.4-11.0 [facility] Bilirubin Test strip Ql (U)O rdered By: Noe Barbour on 10-18-2022 Bilirubin Ql (U) Negative Negative [facility] Blood erythrocytes count (nu mber/volume)Ordered By: Noe Barbour on 10-18-2022 RBC (Bld) [#/Vol] 5.05 10*6/uL 4.6-6.2 [facility] Blood hemoglobin measurement (mass/volume)Ordered By: Noe Barbour on 10-18-2022 Hemoglobin (Bld) [Mass/Vol] 15.7 g/dL 13.0-16.5 [facility] Blood lymphocytes/100 leukoc ytesOrdered By: Noe Barbour on 10-18-2022 Lymphocytes/100 WBC (Bld) 8.2 % 19-41 [facility] Blood monocytes/100 leukocyt esOrdered By: Noe Barbour on 10-18-2022 Monocytes/100 WBC (Bld) 6.5 % 0-10 [facility] Blood platelet mean volumeOr dered By: Noe Barbour on 10-18-2022 Platelet mean volume (Bld) [Entitic vol] 10.9 fL 6.2-12.0 [facility] Determination of erythrocyte mean corpuscular volume (MCV)Ordered By: Noe Barbour on 10-18-2022 MCV (RBC) [Entitic vol] 87.5 fL 80-94 [facility] Direct bilirubinOrdered By: Noe Barbour on 10-18-2022 Bilirubin.direct [Mass/Vol] 1.07 mg/dL 0.00-0.30 [facility] Hematocrit Auto (Bld) [Volum e fraction]Ordered By: Noe Barbour on 06-29-2023 Hematocrit (Bld) [Volume fraction] 44.2 % 40-54 [facility] Ketones Test strip Ql (U)Ord ered By: Noe Barbour on 10-18-2022 Ketones Ql (U) Negative Negative [facility] - Chemistry and C hemistry - challengeOrdered By: Noe Barbour on 10-18-2022 ALP [Catalytic activity/Vol] 72 U/L 45-117 [facility] ALT [Catalytic activity/Vol] 63 U/L 16-61 [facility] CO2 [Moles/Vol] 29.0 mmol/L 21.0-32.0 [facility] Globulin (S) [Mass/Vol] 3.6 g/dL 2.2-4.2 [facility] Lipase [Catalytic activity/Vol] 1548 U/L 13-75 [facility] Comment on above: Please note:LIPASE r evised reference range effective 22. New Lipase methodology. Expected to produce lower values than the previous assay method. NEW Reference Range: 13 - 75 U/L Urea nitrogen/Creatinine [Mass ratio] 16.2 mg/mg 10-20 [facility] - Hematology and Cell countsOrdered By: Noe Barbour on 10-18-2022 Erythrocyte distribution width (RBC) [Entitic vol] 37.2 fL 35.1-43.9 [facility] Erythrocyte distribution width (RBC) [Ratio] 11.8 % 11.6-14.6 [facility] Immature granulocytes/100 WBC (Bld) 0.300 % 0.0-0.9 [facility] Comment on above: IG% - Immature Granu locytes (promyelocytes, myelocytes and metamyelocytes) > 1% indicates that a LEFT SHIFT is Present. MCH (RBC) [Entitic mass] 31.1 pg 27.0-32.0 [facility] Nucleated RBC/100 WBC (Bld) [Ratio] 0 % 0-5 [facility] MCHC Auto (RBC) [Mass/Vol]Or dered By: Noe Barbour on 10-18-2022 MCHC (RBC) [Mass/Vol] 35.5 g/dL 32-36 [facility] Mucus LM Ql (Urine sed)Order ed By: Noe Barbour on 10-18-2022 Mucus Ql (Urine sed) 0 SEEN /hpf [facility] Nitrite Test strip Ql (U)Ord ered By: Noe Barbour on 10-18-2022 Nitrite Ql (U) Negative Negative [facility] No Panel InformationOrdered By: Noe Barbour on 10-18-2022 Estimated Creatinine Clearance Calc 87.05 ml/min [facility] Estimated GFR (MDRD) Amer 101 mL/min >60 [facility] Comment on above: GFR Calc Estimated GFR (MDRD) Non-Af Amer 84 mL/min >60 [facility] Comment on above: Non- GFR Calc Platelets bldOrdered By: Kerwin Barbour on 10-18-2022 Platelets (Bld) [#/Vol] 207 10*3/uL 150-450 [facility] Protein Test strip Ql (U)Ord ered By: Noe Barbour on 10-18-2022 Protein Ql (U) Negative Negative [facility] Serum or plasma albumin rose urement (mass/volume)Ordered By: Noe Barbour on 10-18-2022 Albumin [Mass/Vol] 3.9 g/dL 3.2-5.0 [facility] Serum or plasma calcium rose urement (mass/volume)Ordered By: Noe Barbour on 10-18-2022 Calcium [Mass/Vol] 9.2 mg/dL 8.5-10.1 [facility] Serum or plasma creatinine m easurement (mass/volume)Ordered By: Noe Barbour on 10-18-2022 Creatinine [Mass/Vol] 0.99 mg/dL 0.70-1.30 [facility] Comment on above: The validity of the calculated GFR & GFRAA in patients over 70 years has not been determined. Clinical correlation is essential. Serum or plasma urea nitroge n measurement (mass/volume)Ordered By: Noe Barbour on 10-18-2022 Urea nitrogen [Mass/Vol] 16 mg/dL 7-18 [facility] Squamous epithelial cells de tection in urine sediment by light microscopyOrdered By: Noe Barbour on 10-18-2022 Epithelial cells.squamous LM Ql (Urine sed) 0 SEEN /hpf 0-5 [facility] Thin prep Papanicolaou smear with manual screeningOrdered By: Noe Barbour on 10-18-2022 Thin prep Papanicolaou smear with manual screening 67 U/L 15-37 [facility] Comment on above: Moderate Hemolysis, Result may be falsely increased. Thin prep Papanicolaou smear with manual screening 6 5-15 [facility] Urine blood detectionOrdered By: Noe Barbour on 10-18-2022 RBC Ql (U) 25 /ul Negative [facility] RBC Ql (U) 0 SEEN /hpf 0-5 [facility] Urine clarityOrdered By: Kerwin Barbour on 10-18-2022 Clarity (U) Clear Clear [facility] Urine color determinationOrd ered By: Noe Barbour on 10-18-2022 Color (U) Yellow Yellow [facility] Urine glucose detectionOrder ed By: Noe Barbour on 10-18-2022 Glucose Ql (U) Normal mg/dl Normal [facility] Urine leukocyte esterase det ection by dipstickOrdered By: Noe Barbour on 10-18-2022 Leukocyte esterase Test strip Ql (U) Negative Negative [facility] Urine pHOrdered By: Noe Barbour on 10-18-2022 pH (U) 5.0 [pH] 5.0 - 8.0 [facility] Urine sediment bacteria coun t by microscopy (number/high power field)Ordered By: Noe Barbour on 10-18-2022 Bacteria LM.HPF (Urine sed) [#/Area] 0 /[HPF] None Seen [facility] Urine specific gravity measu rementOrdered By: Noe Barbour on 10-18-2022 Specific gravity (U) [Rel density] 1.015 1.002-1.030 [facility] Urobilinogen Auto test strip Ql (U)Ordered By: Noe Barbour on 10-18-2022 Urobilinogen Ql (U) Normal mg/dl Normal [facility] Vital Signs Date Time Vital Sign Value Performing Clinician Facility 06-22-2024 17:53-0500 Diastolic blood pressure 60 mm[Hg] Molly Kearns MD Work Phone: [facility] 06-22-2024 17:53-0500 Systolic blood pressure 132 mm[Hg] Molly Kearns MD Work Phone: [facility] 06-22-2024 15:50-0500 Body height 177 cm Molly Kearns MD Work Phone: [facility] 06-22-2024 15:50-0500 Body mass index (BMI) [Ratio] 26.58 kg/m2 Molly Kearns MD Work Phone: [facility] 06-22-2024 15:50-0500 Body weight 83.3 kg Molly Kearns MD Work Phone: [facility] 06-22-2024 15:50-0500 Heart rate 81 /min Molly Kerans MD Work Phone: [facility] 06-22-2024 15:50-0500 SaO2% (BldA) [Mass fraction] 99 % Molly Kearns MD Work Phone: [facility] 03-25-2024 10:44-0500 Body height 177 cm Francisco Sanchez MD Work Phone: [facility] 03-25-2024 10:44-0500 Body mass index (BMI) [Ratio] 26.94 kg/m2 Francisco Sanchez MD Work Phone: [facility] 03-25-2024 10:44-0500 Body temperature 97.7 [degF] Francisco Sanchez MD Work Phone: [facility] 03-25-2024 10:44-0500 Body weight 84.4 kg Francisco Sanchez MD Work Phone: [facility] 03-25-2024 10:44-0500 Diastolic blood pressure 73 mm[Hg] Francisco Sanchez MD Work Phone: [facility] 03-25-2024 10:44-0500 Heart rate 87 /min Francisco Sanchez MD Work Phone: [facility] 03-25-2024 10:44-0500 SaO2% (BldA) [Mass fraction] 98 % Francisco Sanchez MD Work Phone: [facility] 03-25-2024 10:44-0500 Systolic blood pressure 157 mm[Hg] Francisco Sanchez MD Work Phone: [facility] 03-12-2024 09:56-0500 Body height 177 cm Mitch Hernandez DO Work Phone: [facility] 03-12-2024 09:56-0500 Body mass index (BMI) [Ratio] 27 kg/m2 Mitch Hernandez DO Work Phone: [facility] 03-12-2024 09:56-0500 Body temperature 98.29 [degF] Mitch Colvini DO Work Phone: [facility] 03-12-2024 09:56-0500 Body weight 84.6 kg Mitch Hernandez DO Work Phone: [facility] 03-12-2024 09:56-0500 Diastolic blood pressure 75 mm[Hg] Mitch Hernandez DO Work Phone: [facility] 03-12-2024 09:56-0500 Heart rate 85 /min Mitch Hernandez DO Work Phone: [facility] 03-12-2024 09:56-0500 SaO2% (BldA) [Mass fraction] 98 % Mitch Hernandez DO Work Phone: [facility] 03-12-2024 09:56-0500 Systolic blood pressure 153 mm[Hg] Mitch Hernandez DO Work Phone: [facility] 12-02-2023 17:49-0400 Diastolic blood pressure 64 mm[Hg] Molly Kearns MD Work Phone: [facility] 12-02-2023 17:49-0400 Systolic blood pressure 122 mm[Hg] Molly Kearns MD Work Phone: [facility] 12-02-2023 15:55-0400 Body height 177.8 cm Molly Kearns MD Work Phone: [facility] 12-02-2023 15:55-0400 Body mass index (BMI) [Ratio] 26.57 kg/m2 Molly Kearns MD Work Phone: [facility] 12-02-2023 15:55-0400 Body temperature 98.4 [degF] Molly Kearns MD Work Phone: [facility] 12-02-2023 15:55-0400 Body weight 84 kg Molly Kearns MD Work Phone: [facility] 12-02-2023 15:55-0400 Heart rate 84 /min Molly Kearns MD Work Phone: [facility] 12-02-2023 15:55-0400 Respiratory rate 16 /min Molly Kearns MD Work Phone: [facility] 12-02-2023 15:55-0400 SaO2% (BldA) [Mass fraction] 98 % Molly Kearns MD Work Phone: [facility] 08-16-2023 14:51-0400 Diastolic blood pressure 60 mm[Hg] Jean Gloria INTAKE MANAGER.[employer] Work Phone: [facility] 08-16-2023 14:51-0400 Systolic blood pressure 130 mm[Hg] Jean Gloria INTAKE MANAGER.[employer] Work Phone: [facility] 08-16-2023 14:49-0400 Body mass index (BMI) [Ratio] 25.97 kg/m2 Jean Gloria INTAKE MANAGER.[employer] Work Phone: [facility] 08-16-2023 14:49-0400 Body weight 82.1 kg Jean Gloria INTAKE MANAGER.SALES ENG[employer] Work Phone: [facility] 08-16-2023 14:49-0400 Heart rate 77 /min Jean Gloria INTAKE MANAGER.[employer]AL[employer] ENG[employer] Work Phone: [facility] 08-16-2023 14:49-0400 SaO2% (BldA) [Mass fraction] 98 % Jean Gloria INTAKE MANAGER.[employer]AL[employer] Work Phone: [facility] 04-04-2023 10:30-0500 Body height 177.[address] Molly Kearns Work Phone: [facility] 04-04-2023 10:30-0500 Body mass index (BMI) [Ratio] 26 kg/m2 Dr. Molly Kearns Work Phone: 2(252)700-798886 [place] [address] 04-04-2023 10:30-0500 Body temperature 98.3 [degF] Dr. Molly Kearns Work Phone: 8(444)377-566386 [place] [address] 04-04-2023 10:30-0500 Body weight 82.[address] Molly Kearns Work Phone: 5(786)364-687586 [place] [address] 04-04-2023 10:30-0500 Diastolic blood pressure 71 mm[Hg] Dr. Molly Kearns Work Phone: 4(148)114-118886 [place] [address] 04-04-2023 10:30-0500 Heart rate 78 /min Dr. Molly Kearns Work Phone: 7(550)741-926486 [place] [address] 04-04-2023 10:30-0500 Respiratory rate 18 /min Dr. Molly Kearns Work Phone: 8(713)315-292386 [place] [address] 04-04-2023 10:30-0500 SaO2% (BldA) [Mass fraction] 99 % Dr. Molly Kearns Work Phone: 6(520)529-252286 [place] [address] 04-04-2023 10:30-0500 Systolic blood pressure 162 mm[Hg] Dr. Molly Kearns Work Phone: 3(269)061-096286 [place] [address] 03-18-2023 12:58-0500 Body mass index (BMI) [Ratio] 26.5 kg/m2 Dr. Molly Kearns Work Phone: 9(677)883-867286 [place] [address] 03-18-2023 12:58-0500 Body weight 83.[address] Molly Kearns Work Phone: 3(490)929-284886 [place] [address] 03-18-2023 12:58-0500 Diastolic blood pressure 79 mm[Hg] Dr. Molly Kearns Work Phone: 1(434)376-586286 [place] [address] 03-18-2023 12:58-0500 Heart rate 79 /min Dr. Molly Kearns Work Phone: 0(885)913-254886 [place] [address] 03-18-2023 12:58-0500 SaO2% (BldA) [Mass fraction] 96 % Dr. Molly Kearns Work Phone: [facility] 03-18-2023 12:58-0500 Systolic blood pressure 169 mm[Hg] Dr. Molly Kearns Work Phone: [facility] 10-26-2022 16:32-0400 Diastolic blood pressure 60 mm[Hg] Molly Kearns MD Work Phone: [facility] 10-26-2022 16:32-0400 Systolic blood pressure 138 mm[Hg] Molly Kearns MD Work Phone: [facility] 10-26-2022 15:22-0400 Body temperature 98.6 [degF] Molly Kearns MD Work Phone: [facility] 10-26-2022 15:22-0400 Body weight 82.56 kg Molly Kearns MD Work Phone: [facility] 10-26-2022 15:22-0400 Heart rate 89 /min Molly Kearns MD Work Phone: [facility] 10-26-2022 15:22-0400 Respiratory rate 18 /min Molly Kearns MD Work Phone: [facility] 10-26-2022 15:22-0400 SaO2% (BldA) [Mass fraction] 97 % Molly Kearns MD Work Phone: [facility] 10-23-2022 08:04-0400 Body temperature 98 [degF] Dr. Molly Kearns Work Phone: [facility] 10-23-2022 08:04-0400 Diastolic blood pressure 69 mm[Hg] Dr. Molly Kearns Work Phone: [facility] 10-23-2022 08:04-0400 Heart rate 70 /min Dr. Molly Kearns Work Phone: [facility] 10-23-2022 08:04-0400 Respiratory rate 16 /min Dr. Molly Kearns Work Phone: [facility] 10-23-2022 08:04-0400 SaO2% (BldA) [Mass fraction] 97 % Dr. Molly Kearns Work Phone: 3(437)333-714309 [place] [address] 10-23-2022 08:04-0400 Systolic blood pressure 136 mm[Hg] Dr. Molly Kearns Work Phone: 7(170)121-971386 [place] [address] 10-19-2022 16:00-0400 Inhaled oxygen flow rate 8 L/min Dr. Molly Kearns Work Phone: 1(748)695-738486 [place] [address] 10-19-2022 14:57-0400 Body height 177.[address] Molly Kearns Work Phone: 5(424)666-807086 [place] [address] 10-19-2022 14:57-0400 Body weight 85.[address] Molly Kearns Work Phone: 2(962)162-785486 [place] [address] 10-18-2022 19:55-0400 Body mass index (BMI) [Ratio] 27 kg/m2 Dr. Molly Kearns Work Phone: 7(051)716-022486 [place] [address] 10-18-2022 19:14-0400 Body temperature 97.6 [degF] Dr. Molly Kearns Work Phone: 4(385)738-960586 [place] [address] 10-18-2022 19:14-0400 Diastolic blood pressure 78 mm[Hg] Dr. Molly Kearns Work Phone: 4(837)979-076786 [place] [address] 10-18-2022 19:14-0400 Heart rate 78 /min Dr. Molly Kearns Work Phone: 4(698)971-576086 [place] [address] 10-18-2022 19:14-0400 Respiratory rate 17 /min Dr. Molly Kearns Work Phone: 6(476)177-637186 [place] [address] 10-18-2022 19:14-0400 SaO2% (BldA) [Mass fraction] 98 % Dr. Molly Kearns Work Phone: 6(787)677-091486 [place] [address] 10-18-2022 19:14-0400 Systolic blood pressure 137 mm[Hg] Dr. Molly Kearns Work Phone: 2(300)769-293086 [place] [address] 10-18-2022 13:54-0400 Body height 177.[address] Molly Kearns Work Phone: [facility] 10-18-2022 13:54-0400 Body mass index (BMI) [Ratio] 27.6 kg/m2 Dr. Molly Kearns Work Phone: [facility] 10-18-2022 13:54-0400 Body weight 87.[address] Molyl Kearns Work Phone: [facility] 07-04-2022 16:49-0400 Body temperature 97.81 [degF] Molly Kearns MD Work Phone: [facility] 07-04-2022 16:49-0400 Body weight 85.73 kg Molly Kearns MD Work Phone: [facility] 07-04-2022 16:49-0400 Diastolic blood pressure 66 mm[Hg] Molly Kearns MD Work Phone: [facility] 07-04-2022 16:49-0400 Heart rate 82 /min Molly Kearns MD Work Phone: [facility] 07-04-2022 16:49-0400 Respiratory rate 18 /min Molly Kearns MD Work Phone: [facility] 07-04-2022 16:49-0400 SaO2% (BldA) [Mass fraction] 98 % Molly Kearns MD Work Phone: [facility] 07-04-2022 16:49-0400 Systolic blood pressure 132 mm[Hg] Molly Kearns MD Work Phone: [facility] 03-05-2022 17:21-0500 Diastolic blood pressure 60 mm[Hg] Molly Kearns MD Work Phone: [facility] 03-05-2022 17:21-0500 Systolic blood pressure 138 mm[Hg] Molly Kearns MD Work Phone: [facility] 03-05-2022 16:30-0500 Body weight 83.01 kg Molly Kearns MD Work Phone: [facility] 03-05-2022 16:30-0500 Heart rate 76 /min Molly Kearns MD Work Phone: [facility] 03-05-2022 16:30-0500 SaO2% (BldA) [Mass fraction] 97 % Molly Kearns MD Work Phone: [facility] 11-15-2021 15:10-0400 Body weight 86.18 kg Molly Kearns MD Work Phone: [facility] 11-15-2021 15:10-0400 Diastolic blood pressure 62 mm[Hg] Mloly Kearns MD Work Phone: [facility] 11-15-2021 15:10-0400 Heart rate 75 /min Molly Kearns MD Work Phone: [facility] 11-15-2021 15:10-0400 SaO2% (BldA) [Mass fraction] 97 % Molly Kearns MD Work Phone: [facility] 11-15-2021 15:10-0400 Systolic blood pressure 126 mm[Hg] Molly Kearns MD Work Phone: [facility] Encounters Encounter Date Encounter Type Care Provider Facility Start: 01-13-2025 End: 01-13-2025 ambulatory MOLLY Sebastien KEARNS Facility:[facility] Start: 01-13-2025 Encounter for general adult medical examination without abnormal findings MOLLY KEARNS [facility] Start: 01-01-2025 End: 01-01-2025 Nursing evaluation of patient and report Mi Nurse Work Phone: [facility] Comment on above: Need for influenza vaccination (Primary Dx); Encounter for immunization Start: 01-01-2025 End: 01-01-2025 ambulatory MOLLY KEARNS Facility:[facility] Start: 12-28-2024 End: 12-28-2024 Telephone encounter Molly Kearns MD Work Phone: [facility] [place] Comment on above: Patient Question Start: 12-23-2024 End: 12-23-2024 ambulatory MOLLY KEARNS Facility:[facility] Start: 10-22-2024 End: 10-22-2024 Refill Molly Kearns MD Work Phone: [facility] Comment on above: Refill Request Start: 10-12-2024 End: 10-12-2024 Telephone encounter Molly Kearns MD Work Phone: [facility] Comment on above: Insurance Authorization Start: 10-06-2024 End: 10-10-2024 Telephone encounter Molly Kearns MD Work Phone: [facility] Comment on above: Insurance Authorization (For [employer] L ibre sensors) Start: 10-02-2024 End: 10-06-2024 Refill Molly Kearns MD Work Phone: [facility] Comment on above: Refill Request Start: 07-24-2024 End: 07-24-2024 Nursing evaluation of patient and report Mi Nurse Work Phone: [facility] Comment on above: Encounter for immunization (Primary Dx) Start: 07-24-2024 End: 07-24-2024 ambulatory [facility] Facility:[facility] Start: 07-02-2024 End: 07-02-2024 Telephone encounter Francisco Sanchez MD Work Phone: Gastroenterology Comment on above: Orders (fibroscan) Start: 06-22-2024 End: 06-22-2024 Office outpatient visit 25 minutes Molly Kearns MD Work Phone: [facility] [place] Comment on above: Type 2 diabetes mellitus without complic ation, without long-term current use of insulin (HCC) (Primary Dx); Essential hypertension; Metabolic dysfunction-associated steatotic liver disease (MASLD); Elevated ferritin; 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); Encounter for long-term current use of medication; Need for vaccination Start: 06-22-2024 End: 06-22-2024 ambulatory MOLLY KEARNS Facility:[facility] Start: 06-05-2024 End: 06-05-2024 ambulatory FRANCISCO SANCHEZ Facility:[facility] Start: 06-01-2024 End: 06-01-2024 Refill Molly Kearns MD Work Phone: [facility] Comment on above: Refill Request Start: 03-25-2024 End: 03-25-2024 Patient encounter procedure Francisco Sanchez MD Work Phone: Gastroenterology Comment on above: Liver disease (Primary Dx) Start: 03-25-2024 End: 03-25-2024 ambulatory FRANCISCO SANCHEZ Facility:[facility] Start: 03-12-2024 End: 03-12-2024 ambulatory Mitch Hernandez DO Work Phone: Hematology/Oncology Comment on above: Hypogammaglobulinemia (HCC) (Primary Dx) Start: 03-12-2024 End: 03-12-2024 Patient encounter procedure Mitch Hernandez DO Work Phone: Hematology/Oncology Start: 03-09-2024 End: 03-09-2024 Telephone encounter Jean Sylvester APRN.CNP Work Phone: [facility] Comment on above: Results Start: 03-06-2024 End: 03-06-2024 ambulatory MOLLY ZAFARMIHCOACANO Facility:[facility] Start: 02-27-2024 End: 03-02-2024 Telephone encounter Molly Kearns MD Work Phone: [facility] Comment on above: Patient Question Start: 02-07-2024 End: 02-07-2024 ambulatory Molly Sebastien Zafarmichoacano Facility:[facility] Start: 01-24-2024 End: 01-24-2024 ambulatory Immunization [facility] Nurse [facility] Work Phone: [facility] Start: 01-24-2024 End: 01-24-2024 Patient encounter procedure Immunization [facility] Nurse [facility] Work Phone: [facility] Start: 12-25-2023 End: 12-26-2023 Refsulaiman Kearns MD Work Phone: [facility] [place] Comment on above: Refill Request Start: 12-02-2023 End: 12-02-2023 Patient encounter status Molly Kearns MD Work Phone: [facility] Work Phone: Start: 12-02-2023 End: 12-02-2023 Periodic [...] Molly Kearns MD Work Phone: [facility] [place] Comment on above: Insurance Authorization Start: 11-26-2023 Refill Molly Kearns MD Work Phone: [facility] Comment on above: Refill Request Start: 11-08-2023 Telephone encounter Molly Kearns MD Work Phone: [facility] Comment on above: Insurance Authorization Start: 11-05-2023 [...] on above: Insurance Authorization (For procedure p rior to) Start: 08-16-2023 End: 08-16-2023 Patient encounter procedure Jean Sylvester APRN.CNP Work Phone: [facility] [place] Comment on above: Type 2 diabetes mellitus without complic ation, with long-term current use of insulin (HCC) (Primary Dx); Essential hypertension; 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 Molly Kearns Work Phone: [facility] Work Phone: Start: 04-19-2023 End: 04-19-[address] Molly Kearns Work Phone: [facility] Work Phone: Start: 04-19-2023 End: 04-19-2023 ambulatory Ranjith Sarmiento Facility:[facility] Start: 04-04-2023 End: 04-04-[address] Molly Kearns Work Phone: [facility] Work Phone: Start: 04-04-2023 End: 04-04-2023 ambulatory Molly Kearns Facility:[facility] Start: 03-22-2023 Telephone encounter Molly Kearns MD Work Phone: [facility] [place] Comment on above: Lab Orders Start: 03-18-2023 End: 03-18-[address] Molly Kearns Work Phone: [facility] Work Phone: Start: 03-18-2023 End: 03-18-2023 ambulatory Molly Kearns Facility:[facility] Start: 01-18-2023 End: 01-18-2023 ambulatory Immunization [facility] Nurse [facility] Work Phone: [facility] Start: 11-13-2022 Telephone encounter Molly Kearns MD Work Phone: [facility] Comment on above: send copy results of CMP to Dr Lara Start: 10-26-2022 End: 10-26-2022 Office outpatient visit 40 minutes Molly Kearns MD Work Phone: [facility] [place] Comment on above: Type 2 diabetes mellitus without complic ation, with long-term current use of insulin (HCC) (Primary Dx); 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 Molly Kearns Work Phone: [facility] Start: 10-22-2022 Non-patient / Non-visit Dr. Molly Kearns Work Phone: [facility] Start: 10-21-2022 Non-patient / Non-visit Dr. Molly Kearns Work Phone: [facility] Start: 10-21-2022 Non-patient / Non-visit Dr. Molly Kearns Work Phone: [facility] Start: 10-20-2022 Non-patient / Non-visit Dr. Molly Kearns Work Phone: [facility] Start: 10-20-2022 Non-patient / Non-visit Dr. Molly Kearns Work Phone: [facility] Start: 10-19-2022 Non-patient / Non-visit Dr. Molly Kearns Work Phone: [facility] Start: 10-18-2022 Non-patient / Non-visit Dr. Molly Kearns Work Phone: [facility] Start: 10-18-2022 End: 10-23-2022 Evaluation and management of inpatient Dr. Molly Kear[facility] Work Phone: Start: 07-07-2022 Refill Molly Kearns MD Work Phone: [facility] [place] Comment on above: Refill Request Start: 07-04-2022 [...] Molly Kearns MD Work Phone: [facility] [place] Comment on above: Type 2 diabetes mellitus without complic ation, without long-term current use of insulin (HCC) (Primary Dx); Essential hypertension; Elevated ferritin; Mixed hyperlipidemia Start: 11-15-2021 End: 11-15-2021 Office outpatient visit 25 minutes Molly Kearns MD Work Phone: [facility] [place] Comment on above: Elevated ferritin (Primary Dx); Type 2 diabetes mellitus without complication, without long-term current use of insulin (HCC); Essential hypertension; Mixed hyperlipidemia; Kidney stones; NICOLE (nonalcoholic steatohepatitis); Need for vaccination Procedures Date Procedure Procedure Detail Performing Clinician Start: 01-24-2024 PFIZER-BIONTECH COVID-19 VACCINE AGE 12+ YR (COMIRNATY) Molly Kearns MD Work Phone: Start: 08-16-2023 Adult depression screening assessment Mloly Kearns MD Work Phone: Start: 01-18-2023 PFIZER-BIONTECH [...] DTaP,Tdap,Td Vaccine (3 - Td or Tdap) [facility] Start: 12-01-2028 Prostate specific antigen measurement Prostate Cancer Screening Discussion [facility] Start: 12-23-2025 Hepatitis B surface antibody level LDL Cholesterol [facility] Start: 06-25-2025 End: 06-25-2025 Patient encounter procedure 06/25/2025 4:00 PM EST Office Visit [facility] [address] [place] [address] Molly Kaerns MD [address] [place] [address] 6 mo f/u [facility] [place] Comment on above: 6 mo f/u Start: 06-22-2025 Annual PCP Team Chronic Disease Visit Annual PCP Team Chronic Disease Visit [facility] Start: 06-22-2025 Hemoglobin A1c measurement HbA1C [facility] Start: 05-27-2025 Glaucoma screening Dilated Retinal Exam [facility] Start: 03-06-2025 Hepatitis B screening Urine Albumin:Creatinine Ratio [facility] Start: 01-19-2025 End: 01-19-2025 Patient encounter procedure 01/19/2025 2:40 PM EDT Office Visit [facility] [place] [address] [facility] [place] [address] Bety Bajwa APRN.GILL TENDER [address] [place] [address] Yearly follow up [facility] [place] Comment on above: Yearly follow up Start: 01-01-2025 End: 01-01-2025 Nursing evaluation of patient and report 01/01/2025 3:00 PM EDT Nurse Visit [facility] [address] [place] [address] Nurse, [place] [address] [place] [address] 3rd Hep/?flu & COVID Booster [facility] Comment on above: 3rd Hep/?flu & COVID Booster Start: 12-28-2024 End: 12-28-2024 Patient encounter procedure 12/28/2024 4:20 PM EDT Office Visit [facility] [place] [address] [place] [address] Molly Kearns MD [address] [place] [address] Yearly follow up [facility] Comment on above: Yearly follow up Start: 12-24-2024 Hepatitis B Vaccine (3 of 3 - Hep B Twinrix 3-dose series) Hepatitis B Vaccine (3 of 3 - Hep B Twinrix 3-dose series) [facility] Start: 12-21-2024 Influenza vaccination Influenza Vaccine (#1) [facility] Start: 12-19-2024 Hepatitis a & b vaccine hepa-hepb adult im HEP A-HEP B VACCINE (TWINRIX) Immunization/Injection Routine Need for vaccination Expected: 12/19/2024 (Approximate) [facility] Comment on above: Expected: 12/19/2024 (Approximate) Start: 12-01-2024 Annual PCP Team Chronic Disease Visit Annual PCP Team Chronic Disease Visit [facility] Start: 12-01-2024 BP Controlled (<130/80) BP Controlled (<130/80) [facility] Start: 11-22-2024 End: 02-21-2025 CBC panel - Blood by Automated count COMPLETE BLOOD COUNT Lab Routine Essential hypertension Expected: 11/22/2024 (Approximate), Expires: 02/21/2025 [facility] Comment on above: Expected: 11/22/2024 (Approximate), Expi res: 02/21/2025 Start: 11-22-2024 End: 02-21-2025 Comprehensive metabolic 2000 panel - Serum or Plasma COMPREHENSIVE METABOLIC PANEL Lab Routine Type 2 diabetes mellitus without complication, without long-term current use of insulin (HCC) Essential hypertension Expected: 11/22/2024 (Approximate), Expires: 02/21/2025 [facility] Comment on above: Expected: 11/22/2024 (Approximate), Expi res: 02/21/2025 Start: 11-22-2024 End: 02-21-2025 Ferritin [Mass/volume] in Serum or Plasma FERRITIN Lab Routine Elevated ferritin Expected: 11/22/2024 (Approximate), Expires: 02/21/2025 [facility] Comment on above: Expected: 11/22/2024 (Approximate), Expi res: 02/21/2025 Start: 11-22-2024 End: 02-21-2025 Hemoglobin A1c in Blood HEMOGLOBIN A1C Lab Routine Type 2 diabetes mellitus without complication, without long-term current use of insulin (HCC) Expected: 11/22/2024 (Approximate), Expires: 02/21/2025 [facility] Comment on above: Expected: 11/22/2024 (Approximate), Expi res: 02/21/2025 Start: 11-22-2024 End: 02-21-2025 Iron and Iron binding capacity panel - Serum or Plasma IRON AND TIBC Lab Routine Elevated ferritin Expected: 11/22/2024 (Approximate), Expires: 02/21/2025 [facility] Comment on above: Expected: 11/22/2024 (Approximate), Expi res: 02/21/2025 Start: 11-22-2024 End: 02-21-2025 Lipid 1996 panel - Serum or Plasma LIPID PANEL BASIC Lab Routine Type 2 diabetes mellitus without complication, without long-term current use of insulin (HCC) Expected: 11/22/2024 (Approximate), Expires: 02/21/2025 [facility] Comment on above: Expected: 11/22/2024 (Approximate), Expi res: 02/21/2025 Start: 09-03-2024 Hemoglobin A1c measurement HbA1C [facility] Start: 08-15-2024 Annual PCP Team Chronic Disease Visit Annual PCP Team Chronic Disease Visit [facility] Start: 08-15-2024 Anxiety Screening Anxiety Screening [facility] Start: 08-15-2024 Depression Screening Depression Screening [facility] Start: 08-15-2024 Diabetic foot examination Diabetic Foot Exam [facility] Start: 08-08-2024 Hepatitis B surface antibody level LDL Cholesterol [facility] Start: 07-24-2024 End: 07-24-2024 Nursing evaluation of patient and report 07/24/2024 3:45 PM EDT Nurse Visit Family Medicine Rajesh [address] [place] [address] Nurse, [place] [address] [place] [address] hep b Family Medicine [facility]esh Comment on above: hep b Start: 07-23-2024 COLOGUARD (FIT-DNA) COLOGUARD (FIT-DNA) [facility] Start: 07-23-2024 COLORECTAL CANCER SCREENING COLORECTAL CANCER SCREENING [facility] Start: 07-23-2024 Hepatitis a & b vaccine hepa-hepb adult im HEP A-HEP B VACCINE (TWINRIX) Immunization/Injection Routine Need for vaccination Expected: 07/23/2024 (Approximate) [facility] Work Phone: Comment on above: Expected: 07/23/2024 (Approximate) Start: 07-23-2024 End: 07-23-2024 Orders Only 07/23/2024 Orders Only Internal Medicine Rajesh [address] [place] [address] Molly Kearns MD [address] [place] [address] Need for vaccination [facility] Comment on above: Need for vaccination Start: 07-23-2024 Screening for malignant neoplasm of colon [facility] Start: 07-20-2024 Hepatitis B Vaccine (2 of 3 - Hep B Twinrix 3-dose series) Hepatitis B Vaccine (2 of 3 - Hep B Twinrix 3-dose series) [facility] Start: 06-22-2024 End: 06-22-2024 Patient encounter procedure 06/22/2024 4:00 PM EST Office Visit Internal Medicine Rajesh [address] [place] [address] Molly Kearns MD [address] [place] [address] 6 month follow up Internal Medicine [facility] Comment on above: 6 month follow up Start: 06-05-2024 End: 06-05-2024 ambulatory 06/05/2024 7:45 AM EST Results Only Rajesh [facility] [address] [place] [address] Routine [facility] Comment on above: Routine Start: 05-29-2024 Hemoglobin A1c measurement HbA1C [facility] Start: 05-08-2024 Glaucoma screening Dilated Retinal Exam [facility] Start: 04-01-2024 Annual PCP Team Chronic Disease Visit Annual PCP Team Chronic Disease Visit [facility] Start: 03-25-2024 Hepatitis B surface antibody level LDL Cholesterol [facility] Start: 03-25-2024 End: 03-25-2024 Patient encounter procedure 03/25/2024 10:55 AM EST Office Visit Gastroenterology [address] [address] Francisco Sanchez MD [address] [place] [address] 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] Gastroenterology Comment on above: Autoimmune hepatitis treated with steroi ds (HCC) [K75.4] Start: 03-12-2024 End: 03-12-2024 ambulatory 03/12/2024 10:10 AM EST Visit (SP) Office Hematology/Oncology [address] [place] [id number] Mitch Hernandez DO [address] [place] [address] RATING OFFICER/HYPOGAMMAGLOBULINEMIA/RE F JEAN SYLVESTER* Hematology/Oncology Comment on above: RATING OFFICER/HYPOGAMMAGLOBULINEMIA/REF JEAN BARKER R* Start: 03-06-2024 End: 03-06-2024 ambulatory 03/06/2024 8:00 AM EST Results Only [facility] [address] [place] [address] Labs for Type 2 diabetes mellitus without complication, with long-term current use of insulin (HCC) [E11.9, Z79.4] [facility] Comment on above: Labs for Type 2 diabetes mellitus withou t complication, with long-term current use of insulin (HCC) [E11.9, Z79.4] Start: 03-02-2024 End: 06-01-2024 IMMUNOGLOBULINS,IGG,IG A,IGM IMMUNOGLOBULINS,IGG,IGA,IGM Lab Routine Hypogammaglobulinemia (HCC) Expected: 03/02/2024, Expires: 06/01/2024 [facility] Work Phone: Comment on above: Expected: 03/02/2024, Expires: Start: 02-26-2024 End: 03-27-2024 Hepatic function 2000 panel - Serum or Plasma HEPATIC FUNCTION PNL Lab Routine Liver disease Expected: 02/26/2024, Expires: 03/27/2024 [facility] Work Phone: Comment on above: Expected: 02/26/2024, Expires: Start: 02-21-2024 End: 05-22-2024 Microalbumin/Creatinin e [Mass Ratio] in Urine ALBUMIN/CREATININE RATIO, URINE Lab Routine Type 2 diabetes mellitus without complication, with long-term current use of insulin (HCC) Expected: 02/21/2024 (Approximate), Expires: 05/22/2024 [facility] Work Phone: Comment on above: Expected: 02/21/2024 (Approximate), Expi res: 05/22/2024 Start: 02-08-2024 Hemoglobin A1c measurement HbA1C [facility] Start: 12-22-2023 Covid-19 Vaccine () Covid-19 Vaccine () [facility] Start: 12-22-2023 Influenza [facility] Start: 12-02-2023 End: 12-02-2023 Patient encounter procedure 12/02/2023 3:40 PM EDT Office Visit Internal Medicine Rajesh [address] [place] [address] Molly Kearns MD [address] [place] [address] follow up Internal Medicine Rajesh Comment on above: follow up Start: 11-27-2023 End: 11-27-2023 ambulatory 11/27/2023 7:30 AM EDT Results Only [facility] [address] [place] [address] [facility] Start: 11-15-2023 Hepatitis B screening URINE ALBUMIN:CREATININE RATIO [facility] Start: 11-15-2023 Hepatitis B surface antibody level LDL CHOLESTEROL [facility] Start: 11-03-2023 ANNUAL PCP TEAM CHRONIC DISEASE VISIT ANNUAL PCP TEAM CHRONIC DISEASE VISIT [facility] Start: 10-27-2023 ANNUAL PCP TEAM CHRONIC DISEASE VISIT ANNUAL PCP TEAM CHRONIC DISEASE VISIT [facility] Start: 09-26-2023 End: 09-26-2023 Patient encounter procedure 09/26/2023 10:30 AM EDT Office Visit Gastroenterology [address] [address] Francisco Sanchez MD [address] [place] [address] autoimmune hepititis Gastroenterology Comment on above: autoimmune hepititis Start: 09-26-2023 End: 09-26-2023 ambulatory 09/26/2023 9:20 AM EDT Procedure Gastroenterology [address] [address] fibroscan Gastroenterology Comment on above: fibroscan Start: 09-24-2023 Hemoglobin A1c measurement HbA1C [facility] Start: 07-05-2023 ANNUAL PCP TEAM CHRONIC DISEASE VISIT ANNUAL PCP TEAM CHRONIC DISEASE VISIT [facility] Start: 06-30-2023 Hepatitis B surface antibody level LDL CHOLESTEROL [facility] Start: 05-17-2023 Hemoglobin A1c/Hemoglobin.total in Blood HBA1C [facility] Start: 04-30-2023 Hepatitis C antibody, confirmatory test DILATED RETINAL EXAM [facility] Start: 04-22-2023 Behavioral Health Screening Behavioral Health Screening [facility] Start: 04-22-2023 Depression Assessment Depression Assessment [facility] Start: 03-19-2023 Patient referral [facility] Work Phone: Start: 03-05-2023 ANNUAL PCP TEAM CHRONIC DISEASE VISIT ANNUAL PCP TEAM CHRONIC DISEASE VISIT [facility] Start: 03-02-2023 Hepatitis B surface antibody level LDL CHOLESTEROL [facility] Start: 12-30-2022 Hemoglobin A1c/Hemoglobin.total in Blood HBA1C [facility] Start: 12-21-2022 Influenza vaccination INFLUENZA (#1) [facility] Start: 11-15-2022 ANNUAL PCP TEAM CHRONIC DISEASE VISIT ANNUAL PCP TEAM CHRONIC DISEASE VISIT [facility] Start: 11-15-2022 BP CONTROLLED (<130/80) BP CONTROLLED (<130/80) [facility] Start: 11-15-2022 HEPATITIS B (1 of 3 - 3-dose series) HEPATITIS B (1 of 3 - 3-dose series) [facility] Comment on above: Postponed from 1966 (Declined at t his time) Start: 11-15-2022 PNEUMOCOCCAL (2 - PCV) PNEUMOCOCCAL (2 - PCV) [facility] Comment on above: Postponed from 06/13/2012 (Declined at t his time) Start: 11-07-2022 Hepatitis B screening URINE ALBUMIN:CREATININE RATIO [facility] Start: 11-07-2022 Hepatitis B surface antibody level LDL CHOLESTEROL [facility] Start: 10-23-2022 Patient discharge [facility] Start: 10-22-2022 Consultation [facility] Start: 10-22-2022 Procedure [facility] Start: 10-22-2022 Oxygen therapy [facility] Start: 10-22-2022 Vital signs measurements [facility] Start: 10-22-2022 Dietary regime [facility] Start: 10-22-2022 [facility] Start: 10-22-2022 [facility] Start: 10-21-2022 Procedure [facility] Start: 10-20-2022 Procedure [facility] Start: 10-20-2022 Serum immunofixation [facility] Start: 10-20-2022 [facility] Start: 10-20-2022 End: 12-20-2022 ALBUMIN/CREAT RATIO RND UR ALBUMIN/CREAT RATIO RND UR Lab Routine Type 2 diabetes mellitus without complication, without long-term current use of insulin (HCC) Encounter for long-term current use of medication Expected: 10/20/2022 (Approximate), Expires: 12/20/2022 [facility] Work Phone: Comment on above: Expected: 10/20/2022 (Approximate), Expi res: 12/20/2022 Start: 10-20-2022 End: 12-20-2022 CBC panel - Blood by Automated count CBC Lab Routine Essential hypertension Encounter for long-term current use of medication Expected: 10/20/2022 (Approximate), Expires: 12/20/2022 [facility] Work Phone: Comment on above: Expected: 10/20/2022 (Approximate), Expi res: 12/20/2022 Start: 10-20-2022 End: 12-20-2022 Cobalamin (Vitamin B12) [Mass/volume] in Serum or Plasma VITAMIN B12 BLOOD Lab Routine Encounter for long-term current use of medication Expected: 10/20/2022 (Approximate), Expires: 12/20/2022 [facility] Work Phone: Comment on above: Expected: 10/20/2022 (Approximate), Expi res: 12/20/2022 Start: 10-20-2022 End: 12-20-2022 Comprehensive metabolic 2000 panel - Serum or Plasma COMP METABOLIC PANEL Lab Routine Type 2 diabetes mellitus without complication, without long-term current use of insulin (HCC) Essential hypertension Encounter for long-term current use of medication Expected: 10/20/2022 (Approximate), Expires: 12/20/2022 [facility] Work Phone: Comment on above: Expected: 10/20/2022 (Approximate), Expi res: 12/20/2022 Start: 10-20-2022 End: 12-20-2022 Ferritin [Mass/volume] in Serum or Plasma FERRITIN BLD Lab Routine Elevated ferritin Encounter for long-term current use of medication Expected: 10/20/2022 (Approximate), Expires: 12/20/2022 [facility] Work Phone: Comment on above: Expected: 10/20/2022 (Approximate), Expi res: 12/20/2022 Start: 10-20-2022 End: 12-20-2022 Folate [Mass/volume] in Serum or Plasma FOLATE SERUM Lab Routine Encounter for long-term current use of medication Expected: 10/20/2022 (Approximate), Expires: 12/20/2022 [facility] Work Phone: Comment on above: Expected: 10/20/2022 (Approximate), Expi res: 12/20/2022 Start: 10-20-2022 End: 12-20-2022 Hemoglobin A1c in Blood HGB A1C Lab Routine Type 2 diabetes mellitus without complication, without long-term current use of insulin (HCC) Encounter for long-term current use of medication Expected: 10/20/2022 (Approximate), Expires: 12/20/2022 [facility] Work Phone: Comment on above: Expected: 10/20/2022 (Approximate), Expi res: 12/20/2022 Start: 10-20-2022 End: 12-20-2022 Iron and Iron binding capacity panel - Serum or Plasma IRON + TIBC Lab Routine Elevated ferritin Encounter for long-term current use of medication Expected: 10/20/2022 (Approximate), Expires: 12/20/2022 [facility] Work Phone: Comment on above: Expected: 10/20/2022 (Approximate), Expi res: 12/20/2022 Start: 10-20-2022 End: 12-20-2022 Lipid 1996 panel - Serum or Plasma LIPID PANEL BASIC Lab Routine Mixed hyperlipidemia Encounter for long-term current use of medication Expected: 10/20/2022 (Approximate), Expires: 12/20/2022 [facility] Work Phone: Comment on above: Expected: 10/20/2022 (Approximate), Expi res: 12/20/2022 Start: 10-19-2022 [facility] Start: 10-19-2022 Fluoroscopic guidance O.R. Fluoro for C-Arm [facility] Start: 10-19-2022 RF Less than 1 hour [facility] Start: 10-19-2022 Referral to gastroenterology service [facility] Start: 10-19-2022 Lipase measurement [facility] Start: 10-19-2022 [facility] Start: 10-18-2022 End: 10-18-2022 Following clinical pathway protocol [facility] Start: 10-18-2022 Application of intermittent pneumatic compression device [facility] Start: 10-18-2022 Admission procedure [facility] Start: 10-18-2022 [facility] Start: 08-30-2022 Hemoglobin A1c/Hemoglobin.total in Blood HBA1C [facility] Start: 05-18-2022 End: 07-18-2022 CBC panel - Blood by Automated count CBC Lab Routine Essential hypertension Expected: 05/18/2022 (Approximate), Expires: 07/18/2022 [facility] Work Phone: Comment on above: Expected: 05/18/2022 (Approximate), Expi res: 07/18/2022 Start: 05-18-2022 End: 07-18-2022 Comprehensive metabolic 2000 panel - Serum or Plasma COMP METABOLIC PANEL Lab Routine Type 2 diabetes mellitus without complication, without long-term current use of insulin (HCC) Essential hypertension NICOLE (nonalcoholic steatohepatitis) Expected: 05/18/2022 (Approximate), Expires: 07/18/2022 [facility] Work Phone: Comment on above: Expected: 05/18/2022 (Approximate), Expi res: 07/18/2022 Start: 05-18-2022 End: 07-18-2022 Ferritin [Mass/volume] in Serum or Plasma FERRITIN BLD Lab Routine Elevated ferritin Expected: 05/18/2022 (Approximate), Expires: 07/18/2022 [facility] Work Phone: Comment on above: Expected: 05/18/2022 (Approximate), Expi res: 07/18/2022 Start: 05-18-2022 End: 07-18-2022 Hemoglobin A1c in Blood HGB A1C Lab Routine Type 2 diabetes mellitus without complication, without long-term current use of insulin (HCC) Expected: 05/18/2022 (Approximate), Expires: 07/18/2022 [facility] Work Phone: Comment on above: Expected: 05/18/2022 (Approximate), Expi res: 07/18/2022 Start: 05-18-2022 End: 07-18-2022 Iron and Iron binding capacity panel - Serum or Plasma IRON + TIBC Lab Routine Elevated ferritin Expected: 05/18/2022 (Approximate), Expires: 07/18/2022 [facility] Work Phone: Comment on above: Expected: 05/18/2022 (Approximate), Expi res: 07/18/2022 Start: 05-18-2022 End: 07-18-2022 Lipid 1996 panel - Serum or Plasma LIPID PANEL BASIC Lab Routine Mixed hyperlipidemia Expected: 05/18/2022 (Approximate), Expires: 07/18/2022 [facility] Work Phone: Comment on above: Expected: 05/18/2022 (Approximate), Expi res: 07/18/2022 Start: 05-10-2022 Hemoglobin A1c/Hemoglobin.total in Blood HBA1C [facility] Start: 04-28-2022 Hepatitis C antibody, confirmatory test DILATED RETINAL EXAM [facility] Start: 04-01-2022 Urine microalbumin profile [facility] Start: 01-14-2022 Hzv zoster vacc recombinant adjuvanted im njx ZOSTER VACC RECOMBINANT,IM Immunization/Injection Routine Need for vaccination Expected: 01/14/2022 (Approximate) [facility] Work Phone: Comment on above: Expected: 01/14/2022 (Approximate) Start: 01-10-2022 SHINGRIX VACCINE (2 of 2) SHINGRIX VACCINE (2 of 2) [facility] Start: 12-21-2021 Influenza vaccination INFLUENZA (#1) [facility] Start: 2021 PROSTATE CANCER SCREENING DISCUSSION PROSTATE CANCER SCREENING DISCUSSION [facility] Start: 2021 Prostate specific antigen measurement Prostate Cancer Screening Discussion [facility] Start: 10-22-2021 COVID-19 VACCINE (5 - Booster for Moderna series) COVID-19 VACCINE (5 - Booster for Moderna series) [facility] Start: 04-22-2021 DEPRESSION ASSESSMENT DEPRESSION ASSESSMENT [facility] Start: 05-19-2020 3 comp foot exam completed DIABETIC FOOT EXAM [facility] Start: 05-19-2020 Diabetic foot examination Diabetic Foot Exam [facility] Start: 06-01-2019 FECAL OCCULT BLOOD FECAL OCCULT BLOOD [facility] Start: 06-01-2019 Screening for malignant neoplasm of colon Fecal Occult Blood [facility] Start: 06-13-2012 PNEUMOCOCCAL (2 - PCV) PNEUMOCOCCAL (2 - PCV) [facility] Start: 06-13-2012 Pneumococcal vaccination [facility] Start: 11-12-2011 Colonoscopy COLONOSCOPY [facility] Start: 11-12-[address] COLONOGRAPHY [facility] Start: 11-12-2011 Screening for malignant neoplasm of colon [facility] Start: 11-12-2011 SIGMOIDOSCOPY SIGMOIDOSCOPY [facility] Start: 1985 Hepatitis B Vaccine (1 of 3 - 19+ 3-dose series) Hepatitis B Vaccine (1 of 3 - 19+ 3-dose series) [facility] Start: 1984 BP CONTROLLED (<130/80) BP CONTROLLED (<130/80) [facility] Start: 1966 HEPATITIS B (1 of 3 - 3-dose series) HEPATITIS B (1 of 3 - 3-dose series) [facility] Start: 1966 Hepatitis B Vaccine (1 of 3 - 3-dose series) Hepatitis B Vaccine (1 of 3 - 3-dose series) [facility] Alanine aminotransferase [Enzymatic activity/volume] in Serum or Plasma [facility] Albumin [Mass/volume ] in Serum or Plasma [facility] Albumin [Moles/volum e] in Serum or Plasma [facility] Albumin/Globulin ratio [facility] Alkaline phosphatase [Enzymatic activity/volume] in Serum or Plasma [facility] Anion gap measurement [facility] Antibody to lupus La protein measurement [facility] Antibody to SS-A measurement [facility] Aspartate aminotransferase [Enzymatic activity/volume] in Serum or Plasma [facility] Bilirubin, total measurement [facility] BUN/Creatinine ratio [facility] Calcium [Mass/volume ] in Serum or Plasma [facility] Carbon dioxide, tota l [Moles/volume] in Serum or Plasma [facility] End: 03-21-2024 CBC panel - Blood by Automated count CBC Lab Routine Encounter for long-term current use of medication Essential hypertension Every 3 months for 4 Occurrences starting 03/22/2023 until 03/21/2024 [facility] Work Phone: Comment on above: Every 3 months for 4 Occurrences startin g 03/22/2023 until 03/21/2024 Centromere protein B Ab [Units/volume] in Serum [facility] Chloride [Moles/volume] in Serum or Plasma [facility] Chromatin Ab [Units/volume] in Serum or Plasma [facility] End: 03-21-2024 Comprehensive metabolic 2000 panel - Serum or Plasma COMP METABOLIC PANEL Lab Routine Encounter for long-term current use of medication Type 2 diabetes mellitus with hyperglycemia, with long-term current use of insulin (HCC) Essential hypertension Every 3 months for 4 Occurrences starting 03/22/2023 until 03/21/2024 [facility] Work Phone: Comment on above: Every 3 months for 4 Occurrences startin g 03/22/2023 until 03/21/2024 Creatinine [Moles/volume] in Serum or Plasma [facility] Cytomegalovirus IgG antibody measurement [facility] Cytomegalovirus IgM antibody assay [facility] DNA double strand Ab [Units/volume] in Serum [facility] Electrophoresis: [id number] [facility] Electrophoresis: jeffrey ma globulin [facility] Cassandra Smith virus capsid IgG Ab [Units/volume] in Serum [facility] Cassandra Smith virus capsid IgM Ab [Units/volume] in Serum [facility] Cassandra Smith virus nuclear IgG Ab [Units/volume] in Cerebral spinal fluid [facility] Cassandra-Smith virus serologic test [facility] End: 03-21-2024 Ferritin [Mass/volume] in Serum or Plasma FERRITIN BLD Lab Routine Elevated ferritin Encounter for long-term current use of medication Every 3 months for 4 Occurrences starting 03/22/2023 until 03/21/2024 [facility] Work Phone: Comment on above: Every 3 months for 4 Occurrences startin g 03/22/2023 until 03/21/2024 Globulin measurement [facility] Glucose [Mass/volume ] in Serum or Plasma [facility] Hematocrit [Volume Fraction] of Blood [facility] Hemoglobin [Mass/volume] in Blood [facility] End: 03-21-2024 Hemoglobin A1c in Blood HGB A1C Lab Routine Encounter for long-term current use of medication Type 2 diabetes mellitus with hyperglycemia, with long-term current use of insulin (HCC) Every 3 months for 4 Occurrences starting 03/22/2023 until 03/21/2024 [facility] Work Phone: Comment on above: Every 3 months for 4 Occurrences startin g 03/22/2023 until 03/21/2024 IgA [Mass/volume] in Serum or Plasma [facility] IgG [Mass/volume] in Serum or Plasma [facility] IgG subclass 1 [Mass/volume] in Serum [facility] IgG subclass 2 [Mass/volume] in Serum [facility] IgG subclass 3 [Mass/volume] in Serum [facility] IgG subclass 4 [Mass/volume] in Serum [facility] IgM [Mass/volume] in Serum or Plasma [facility] Imaging of liver [facility] End: 03-21-2024 Iron and Iron binding capacity panel - Serum or Plasma IRON + TIBC Lab Routine Elevated ferritin Encounter for long-term current use of medication Every 3 months for 4 Occurrences starting 03/22/2023 until 03/21/2024 [facility] Work Phone: Comment on above: Every 3 months for 4 Occurrences startin g 03/22/2023 until 03/21/2024 Ligia-1 extractable nuclear Ab [Units/volume] in Serum [facility] Leukocytes [#/volume ] in Blood [facility] End: 03-21-2024 Lipid 1996 panel - Serum or Plasma LIPID PANEL BASIC Lab Routine Encounter for long-term current use of medication Mixed hyperlipidemia Every 3 months for 4 Occurrences starting 03/22/2023 until 03/21/2024 [facility] Work Phone: Comment on above: Every 3 months for 4 Occurrences startin g 03/22/2023 until 03/21/2024 Magnesium [Mass/volume] in Serum or Plasma [facility] Mean corpuscular hemoglobin concentration determination [facility] Mean corpuscular hemoglobin determination [facility] Measurement of renal function [facility] Mitochondria Ab [Presence] in Serum [facility] Neutrophil count [facility] Neutrophil cytoplasm ic Ab.classic [Units/volume] in Serum [facility] Neutrophil percent differential count [facility] P-ANCA measurement [facility] Parvovirus B19 IgG A b [Units/volume] in Serum by Immunoassay [facility] Parvovirus B19 IgM A b [Units/volume] in Serum by Immunoassay [facility] Patient Education ISRAEL MAHER Biopsy Liver [place] WOOD RN Procedural Sedation [facility] Work Phone: Patient referral [facility] Work Phone: Platelets [#/volume] in Blood [facility] Potassium [Moles/volume] in Serum or Plasma [facility] Procedure [facility] Procedure [facility] Protein electrophoresis panel - Serum or Plasma [facility] Red blood cell count [facility] Red cell distributio n width determination [facility] SCL-70 extractable nuclear Ab [Units/volume] in Serum by Immunoassay [facility] Serum protein electrophoresis [facility] Cline extractable nuclear Ab [Presence] in Serum [facility] Smooth muscle Ab [Presence] in Serum [facility] Sodium [Moles/volume ] in Serum or Plasma [facility] Total protein measurement [facility] Transferrin [Mass/volume] in Serum or Plasma [facility] Urea nitrogen [Mass/volume] in Serum or Plasma [facility] Immunizations Immunization Date Immunization Notes Care Provider Fa cili 01-01-2025 hepatitis A and hepatitis B vaccine Tn Nurse Work Phone: [facility] 01-01-2025 influenza, seasonal, injectable, preservative free Mi Nurse Work Phone: [facility] 07-24-2024 hepatitis A and hepatitis B vaccine Tn Nurse Work Phone: [facility] 06-22-2024 hepatitis A and hepatitis B vaccine Francisco Sanchez MD Work Phone: [facility] 01-24-2024 COVID-19 vaccine, ag e 12+ yr (PFIZER-BIONTSyntricity [facility]) Immunization Rajesh Work Phone: [facility] 01-24-2024 influenza, seasonal, injectable Immunization Hannibal Work Phone: [facility] 01-24-2024 influenza virus vaccine, unspecified formulation Molly Kearns MD Work Phone: [facility] 08-16-2023 pneumococcal Conjuga te, unspecified formulation Jean Sylvester APRN.[employer] Work Phone: [facility] Work Phone: 08-16-2023 pneumococcal conjuga te (PCV20) vaccine, 20 valent (PREVNAR 20) Jean Sylvester APRN.[employer] Work Phone: [facility] 04-01-2023 tetanus toxoid, redu denisse diphtheria toxoid, and acellular pertussis vaccine, adsorbed Molly Kearns MD Work Phone: [facility] Work Phone: 01-18-2023 COVID-19 vaccine, ag e 12+ yr, season ([employer]) Immunization Hannibal Work Phone: [facility] Work Phone: 01-18-2023 influenza, injectabl e, quadrivalent, contains preservative Immunization Hannibal Work Phone: [facility] Work Phone: 01-18-2023 influenza virus vaccine, unspecified formulation Molly Kearns MD Work Phone: [facility] 03-05-2022 zoster vaccine recombinant Molly Kearns MD Work Phone: [facility] 01-28-2022 COVID-19 booster vaccine, age 12+ yr, bivalent (MAYE) Molly Kearns MD Work Phone: [facility] Work Phone: 01-28-2022 Influenza, injectabl e, Madin Jeannine Canine Kidney, preservative free, quadrivalent Molly Kearns MD Work Phone: [facility] 01-28-2022 Seasonal, trivalent, recombinant, injectable influenza vaccine, preservative free Molly Kearns MD Work Phone: [facility] Work Phone: 11-15-2021 zoster vaccine recombinant Molly Kearns MD Work Phone: [facility] 08-27-2021 COVID-19 original vaccine, full dose, monovalent (MAYE) Molly Kearns MD Work Phone: [facility] 03-19-2021 COVID-19 original vaccine, booster dose, monovalent (MAYE) Molly Kearns MD Work Phone: [facility] Work Phone: 02-09-2021 influenza virus vaccine, unspecified formulation Molly Kearns MD Work Phone: [facility] 08-04-2020 COVID-19 original vaccine, full dose, monovalent (MAYE) Molly Kearns MD Work Phone: [facility] Work Phone: 07-07-2020 COVID-19 original vaccine, full dose, monovalent (MODERNA) Molly Kearns MD Work Phone: [facility] Work Phone: 01-30-2020 influenza, injectabl e, quadrivalent, contains preservative Molly Kearns MD Work Phone: [facility] 01-30-2020 influenza, injectabl e, quadrivalent, preservative free Dr. Molly Kearns Work Phone: [facility] 01-30-2020 influenza, seasonal, injectable Dr. Molly Kearns Work Phone: [facility] 02-08-2019 influenza virus vaccine, unspecified formulation Molly Kearns MD Work Phone: [facility] 02-04-2018 influenza, injectabl e, quadrivalent, contains preservative Molly Kearns MD Work Phone: [facility] 02-04-2018 influenza, injectabl e, quadrivalent, preservative free Dr. Molly Kearns Work Phone: [facility] 02-04-2018 influenza, seasonal, injectable Dr. Molly Kearns Work Phone: [facility] 01-28-2017 influenza, injectabl e, quadrivalent, contains preservative Molly Kearns MD Work Phone: [facility] 01-28-2017 influenza, injectabl e, quadrivalent, preservative free Dr. Molly Kearns Work Phone: [facility] 01-28-2017 influenza, seasonal, injectable Dr. Molly Kearns Work Phone: [facility] 02-03-2016 influenza, seasonal, injectable Molly Kearns MD Work Phone: [facility] 02-02-2015 influenza, injectabl e, quadrivalent, preservative free Dr. Molly Kearns Work Phone: [facility] 02-02-2015 influenza, seasonal, injectable Molly Kearns MD Work Phone: [facility] 04-01-2012 tetanus toxoid, redu denisse diphtheria toxoid, and acellular pertussis vaccine, adsorbed Molly Kearns MD Work Phone: [facility] 02-05-2012 influenza virus vaccine, unspecified formulation Molly Kearns MD Work Phone: [facility] 06-13-2011 pneumococcal polysaccharide vaccine, 23 valent Molly Kearsn MD Work Phone: [facility] 04-11-2009 novel [id number], preservative-free, injectable Molly Kearns MD Work Phone: [facility] Payers Date Payer Category Payer [facility] PPO [id number] 2024 Unknown [id number] 2024 Unknown [id number] 2024 Private Health Insurance [id number] 2023 Private Health Insurance [id number] 2023 Self-pay [id number] 2022 Unknown [id number] 2015 Unknown [id number] Unknown [employer] PPO [id number] Unknown [facility] PACKAGE PLAN [id number] Unknown [id number] Unknown [id number] Unknown [id number] Unknown [id number] Unknown [id number] Social History Date Type Detail Facility Start: 04-09-2017 End: 03-05-2022 Tobacco smoking status NHIS Never smoked tobacco [facility] Start: 04-09-2017 End: 03-05-2022 Tobacco use and exposure Smokeless tobacco non-user [facility] Start: 11-04-2020 End: 06-22-2024 Alcohol intake Current non-drinker of alcohol (finding) [facility] Start: 11-10-2019 End: 06-30-2020 History SDOH Alcohol Frequency 1 [facility] Start: 11-10-2019 End: 03-03-2020 History SDOH Alcohol Std Drinks 98 [facility] Start: 11-10-2019 End: 03-03-2020 History SDOH Social Connections Phone 5 [facility] Start: 11-10-2019 End: 03-03-2020 History SDOH Social Connections Jew 3 [facility] Start: 11-10-2019 End: 06-30-2020 History SDOH Transport Med 2 [facility] Start: 11-10-2019 Education 16 [facility] Start: 1965 Sex Assigned At Male [facility] Start: 11-05-2021 End: 03-05-2022 Exposure to SARS-CoV-2 (event) Not sure [facility] Start: 10-18-2022 End: 04-04-2023 Tobacco smoking status NHIS Unknown if ever smoked [facility] Start: 06-04-2020 Spouse/ Significant Other [facility] Start: 06-07-2020 Non-smoker [facility] Start: 03-03-2020 End: 10-25-2022 History of Social function [facility] Start: 03-03-2020 End: 10-25-2022 Social connection and isolation panel [facility] Start: 03-23-2012 How often do you get together with friends or relatives? Patient refused [facility] How often to you hav e a drink containing alcohol? Never [facility] Do you feel stress - tense, restless, nervous, or anxious, or unable to sleep at night because your mind is troubled all the time - these days [OSQ] Not at all [facility] (I/We) worried wheheather er (my/our) food would run out before (I/we) got money to buy more. Never true [facility] In the past 12 month s, was there a time when you were not able to pay the mortgage or rent on time? No [facility] Start: 11-03-2020 Gender identity Identifies as male gender (finding) [facility] Start: 11-03-2020 Sexual orientation Heterosexual (finding) [facility] Do you belong to any clubs or organizations such as jehovah's witness groups, unions, fraternal or athletic groups, or school groups? Yes [facility] Are you now , , , , never or living with a partner? [facility] Medical Equipment Procedure Code Equipment Code Equipment Original Text Equipment Identifier Dates Lithotripsy, ESWL STENT,URETERAL PIGTAIL [id number] FDA Start: 06-09-2020 Lithotripsy, ESWL STENT,URETERAL PIGTAIL [id number] FDA Start: 06-09-2020 Lithotripsy, ESWL STENT,URETERAL PIGTAIL [id number] FDA Start: 06-09-2020 [id number], [id number] Start: 10-24-2022 Comment on above: Use one [...] Functional status Ambulates;Up a d batsheva;Bathroom Privilege [facility] Work Phone: 09-22-2014 Are you deaf, or do you have serious difficulty hearing No 09/22/2014 6:09 PM EDT Haydee Skelton LPN No [facility] 09-22-2014 Are you blind, or do you have serious difficulty seeing, even when wearing glasses No 09/22/2014 6:09 PM EDT Haydee Skelton LPN No [facility] 09-22-2014 Do you have serious difficulty walking or climbing stairs No 09/22/2014 6:09 PM EDT Haydee Skelton LPN No [facility] 09-22-2014 Do you have difficul ty dressing or bathing No 09/22/2014 6:09 PM EDT Haydee Skelton LPN No [facility] 09-22-2014 Because of a physica l, mental, or emotional condition, do you have difficulty doing errands alone such as visiting a physician's office or shopping No 09/22/2014 6:09 PM EDT Haydee Skelton LPN No [facility] Mental Status Date Assessment Result Facility 10-23-2022 Cognitive function Voice/Name [facility] Work Phone: 09-22-2014 Because of a physica l, mental, or emotional condition, do you have serious difficulty concentrating, remembering, or making decisions No 09/22/2014 6:09 PM EDT Haydee Skelton LPN No [facility] Clinical Notes 01-05-2011 to 01-13-2025 NINOSKA ODONNELL - 01/01/2025 3:16 PM EDTTelephone Encounter - Giuliana Hardin LPN - 12/28/2024 2:19 PM EDTTelephone Encounter - Giuliana Hardin LPN - 12/28/2024 2:19 PM EDT Note Date & Type Note Facility 01-13-2025 Note HNO ID: [id number] Author: MOLLY KEARNS MD Service: ? Author [...] feeling like somebody [hit] a fist right here, accompanied by diaphoresis and hot flashes. The [...] 81 Resp 16 Ht 174 cm (5' 8.5) Wt 85.3 kg (188 lb 0.8 oz) SpO2 97% BMI 28.17 kg/m? Physical Exam Vitals reviewed. Constitutiona (more content not included)... [facility] 01-01-2025 Note HNO ID: [id number] Author: ?, ?, ? Service: ? Author Type: Licensed Nurse Type: Progress Notes Filed: 01/01/2025 15:17 Note Text: Patient presents for Flu and Twinrix vaccines. Denies any problems at this time. Tolerated injections well. Ninoska Odonnell LPN [facility] 01-01-2025 History of Present illness Narrative Patient presents for Flu and Twinrix vaccines. Denies any problems at this time. Tolerated injections well. Ninoska Odonnell LPN documented in this encounter [facility] 12-28-2024 Telephone encounter Note Patients notified that we do not have COVID at this time but could get flu with Hep vaccine. [facility] 12-28-2024 Miscellaneous Notes Patients notified that we do not have COVID at this time but could get flu with Hep vaccine. Spoke with patient's spouse to reschedule. Patient's spouse asked if patient should get his flu/COVID vaccines with his 3rd Hep vaccine later this week. Please advise. Traci Grubbs documented in this encounter [facility] 12-28-2024 Telephone encounter Note Spoke with patient's spouse to reschedule. Patient's spouse asked if patient should get his flu/COVID vaccines with his 3rd Hep vaccine later this week. Please advise. Traci Grubbs [facility] 10-22-2024 Telephone encounter Note The following approved medication requests have been transmitted electronically. Requested Prescriptions Pending Prescriptions Disp Refills gemfibrozil (LOPID) 600 mg tablet 180 tablet 3 Sig: Take 1 tablet by mouth two times a day. Molly Kearns MD [facility] 10-22-2024 Miscellaneous Notes The following approved medication [...] you. Norma Garvey. documented in this encounter [facility] 10-22-2024 Telephone encounter Note Pharmacy stated they [...] 12/28/2024 Please advise. Thank you. Norma Garvey. T [facility] 10-12-2024 Telephone encounter Note Images from the original note were not included. Electronic PA reviewed and completed for freestyle brenda 2 sensors. This was approved. Prior authorization approved Payer: Sanju Note from payer: SANTO Case: [id number], Status: Partially Approved, Coverage Starts on: 10/09/2024 12:00:00 AM, Coverage Ends on: 10/09/2025 12:00:00 AM. Approval Details Authorization number: [id number] Authorized from October 09, 2024 to October [...] destination. To be filled at: e- [id number] [place] [address] - [address] [facility] [phone] Pharmacy notified. [facility] 10-12-2024 Miscellaneous Notes Images from the original note were not included. Electronic PA reviewed and completed for freestyle brenda 2 sensors. This was approved. Prior authorization approved Payer: Sanju Note from payer: SANTO Case: [id number], Status: Partially Approved, Coverage Starts on: 10/09/2024 12:00:00 AM, Coverage Ends on: 10/09/2025 12:00:00 AM. Approval Details Authorization number: [id number] Authorized from October 09, 2024 to October [...] to its destination. To be filled at: [id number] [place] [address] - [address] [phone] [id number] Pharmacy notified. documented in this encounter [facility] 10-10-2024 Telephone encounter Note Per med PA, sensors have been approved. Authorization number: [id number] Authorized from October 09, 2024 to October 09, 2025 Information received electronically from payer Called pt and notified of approval. Sent the above information to pt's WiN MSt for reference if he speaks with [facility] in [place] and they say they are still waiting on the PA. [facility] 10-10-2024 Miscellaneous Notes Per med PA, sensors have been approved. Authorization number: [id number] Authorized from October 09, 2024 to October 09, 2025 Information received electronically from payer Called pt and notified of approval. Sent the above information to pt's Leyou softwarehart for reference if he speaks with [facility] in [place] and they say they are still waiting on the PA. Patient is checking on status. Please send Prior Authorization to [facility] if approved and notify patient. [phone] Electronic PA rec'd for freestyle brenda sensors. documented in this encounter [facility] 10-09-2024 Telephone encounter Note Patient is checking on status. Please send Prior Authorization to [facility] if approved and notify patient. [phone] [facility] Work Phone: 10-06-2024 Telephone encounter Note Electronic PA rec'd for freestyle brenda sensors. [facility] 10-05-2024 Telephone encounter Note The following approved medication requests have been transmitted electronically. Requested Prescriptions Pending Prescriptions Disp Refills flash glucose sensor (FREESTYLE BRENDA 2 SENSOR) kit 6 each 4 Sig: Apply new sensor every fourteen (14) days to upper arm. Molly Kearns MD [facility] 10-05-2024 Miscellaneous Notes The following approved medication [...] 2024 9:40 AM documented in this encounter [facility] 10-02-2024 Telephone encounter Note Prescription Refill Information [...] Yaneli Steward October 02, 2024 9:40 AM [facility] 07-24-2024 Note HNO ID: [id number] Author: ?, ?, ? Service: ? Author Type: LICENSED NURSE Type: Progress Notes Filed: 07/24/2024 15:32 Note Text: Patient presents for Twinrix vaccine. Denies any problems at this time. Tolerated injection well. Ninoska Odonnell LPN [facility] 07-24-2024 History of Present illness Narrative Patient presents for Twinrix vaccine. Denies any problems at this time. Tolerated injection well. Ninoska Odonnell LPN documented in this encounter [facility] 07-02-2024 Telephone encounter Note Patient updated Jaki Lebron RN [facility] 07-02-2024 Miscellaneous Notes Patient updated Jaki Lebron [...] called in Fibroscan order needed Matthieu Gamboa District Sales Manager ll documented in this encounter [facility] 07-02-2024 Telephone encounter Note Please let him know FS every two years (September 2025) I would be please to see him in the office (or V V) if he would like to review things in detail. Thanks Francisco Sanchez MD [facility] Work Phone: 07-02-2024 Telephone encounter Note [...] Lebron RN July 02, 2024 9:53 AM [facility] 07-02-2024 Telephone encounter Note Pt called in Fibroscan order needed Matthieu Gamboa District Sales Manager ll T [facility] 06-22-2024 Instructions Molly Kearns MD - [...] team? Your provider may enroll you in [employer] BP Monitoring. Use the Track My Health section of [employer] to log your readings. Alternatively, you can call our office or send a [employer] Message. Report the readings with the BP, [...] the correct size. documented in this encounter [facility] 06-22-2024 Note HNO ID: [id number] Author: MOLLY KEARNS MD Service: ? Author Type: Physician Type: Progress Notes Filed: 07/22/2024 13:06 Note Text: This note was created using Jetpacriter. Subjective Lonnie Denton is a 58 year [...] pain was so severe that he was crying out in pain and required assistance with dressing. The pain [...] 140/58 Pulse 81 Ht 177 cm (5' 9.69) Wt 83.3 kg (183 lb 10.3 oz) SpO2 99% BMI 26.58 kg/m? Last 5 Encounter Wt Readings: Date: Wt: 06/22/2024 83.3 kg (183 lb 10.3 oz) 03/25/2024 84.4 kg (186 lb 1.1 oz) 03/12/2024 84.6 kg (186 lb 8 oz) 12/02/2023 84 kg (185 lb 3 oz) 08/15/ (more content not included)... [facility] 06-22-2024 History of Present illness Narrative This note was created using NoteWriter. Subjective Lonnie Denton is a 58 year [...] pain was so severe that he was crying out in pain and required assistance with dressing. The pain [...] 140/58 Pulse 81 Ht 177 cm (5' 9.69) Wt 83.3 kg (183 lb 10.3 oz) [...] as of this encounter: 177 cm (5' 9.69). Weight as of this encounter: 83.3 kg (183 lb 10.3 oz). Last 5 Encounter BP Readings: Date: BP: 06/22/2024 140/58 03/25/2024 157/73 03/12/2024 153/75 12/02/2023 122/64 08/16/2023 130/60 06/22/24 1550 06/22/24 1753 BP: 140/58 132/60 Pulse: 81 SpO2: 99% Weight: 83.3 kg (183 lb 10.3 oz) Height: 177 cm (5' 9.69) Physical Exam Vitals reviewed. Constitutional: Appearance: Normal [...] available; subsequent doses to be scheduled with [facility]. The patient consented to the use of Queralt software for draft documentation of the visit consistent with [facility] s Notice of Privacy Practices. Molly Kearns MD documented in this encounter [facility] 06-01-2024 Telephone encounter Note The following approved medication requests have been transmitted electronically. Requested Prescriptions Pending Prescriptions Disp Refills flash glucose sensor (FREESTYLE BRENDA 2 SENSOR) kit 6 Each 4 Sig: Apply new sensor every fourteen (14) days to upper arm. Molly Kearns MD [facility] 06-01-2024 Miscellaneous Notes The following approved medication [...] 2024 8:45 AM documented in this encounter [facility] 06-01-2024 Telephone encounter Note The patient has [...] Arizmendi RN June 01, 2024 8:45 AM [facility] 03-25-2024 Note HNO ID: [id number] Author: FRANCISCO SANCHEZ MD Service: ? Author [...] (97.7 ?F) (Temporal) Ht 177 cm (5' 9.69) Wt 84.4 kg (186 lb 1.1 oz) [...] more than 50% counseling Francisco Sanchez MD [facility] 03-25-2024 History of Present illness Narrative Follow [...] (97.7 F) (Temporal) Ht 177 cm (5' 9.69) Wt 84.4 kg (186 lb 1.1 oz) [...] Francisco Sanchez MD documented in this encounter [facility] 03-12-2024 Note HNO ID: [id number] Author: MITCH HERNANDEZ, DO Service: ? Author [...] total IgG. I spent time going through [facility] records. He was admitted summer 2022 for acute hepatitis and cholecystitis as well as pancreatitis. Underwent cholecystectomy. Had extensive workup which included serum immunoglobulins wherein the total IgG was 579 and all 4 subclasses of IgG were normal. Serum protein electrophoresis demonstrated no monoclonal protein. Immunofixation of the serum negative. Since he was diagnosed with steatohepatitis. [facility]. Liver biopsy slides reviewed at [facility]. 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 Swan loratadine (CLARITIN) 10 mg tablet [...] times a day. flash glucose scanning reader (NPSSTPROTEIN LOUNGE BRENDA 2 READER) 1 Each once daily. [...] and LE e (more content not included)... 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 HPI: The patient is a [...] total IgG. I spent time going through [facility] records. He was admitted summer 2022 for acute hepatitis and cholecystitis as well as pancreatitis. Underwent cholecystectomy. Had extensive workup which included serum immunoglobulins wherein the total IgG was 579 and all 4 subclasses of IgG were normal. Serum protein electrophoresis demonstrated no monoclonal protein. Immunofixation of the serum negative. Since he was diagnosed with steatohepatitis. [facility]. Liver biopsy slides reviewed at [facility]. 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 Swan loratadine (CLARITIN) 10 mg tablet [...] C (98.3 F), height 177 cm (5' 9.69), weight 84.6 kg (186 lb 8 oz), [...] which included preparing to see the patient, [id number] patient care, completing clinical documentation, obtaining and/or reviewing separately obtained history, performing a medically appropriate examination, counseling and educating the patient/family/caregiver, ordering medications, tests, or procedures, communicating with other HCPs (not separately reported), and communicating results to the patient/family/caregiver. Mitch Hernandez DO documented in this encounter [facility] 03-12-2024 Nurse Note New Pt.. Discuss recent IgG values Cara Horne LPN [facility] 03-12-2024 Nurse Note New Pt.. Discuss recent IgG values Cara Horne LPN documented in this encounter [facility] 03-09-2024 Telephone encounter Note Spoke with patient's and scheduled. Traci Grubbs [facility] 03-09-2024 Miscellaneous Notes Spoke with patient's and [...] up is needed. documented in this encounter [facility] 03-09-2024 Telephone encounter Note PSS- please contact patient to schedule a new patient appointment. Mellisa Novak LPN [facility] 03-09-2024 Telephone encounter Note It will be faster if we see him rather than me trying to explain what to do. [facility] Work Phone: 03-09-2024 Telephone encounter Note Please check referral for appropriateness. Cara Horne LPN [facility] 03-09-2024 Telephone encounter Note PATIENT NOTIFIED OF SAME. Did request that results be forwarded to Dr. Sanchez for his review. This encounter forwarded as requested. [facility] 03-09-2024 Telephone encounter Note Please let Lonnie and his know that IgG came back just slightly on the low side. I will place a referral to hem/onc to discuss if any further treatment or work up is needed. [facility] 03-02-2024 Telephone encounter Note PATIENT NOTIFIED OF SAME. Will have labs completed 03/06/24 Records released faxed to [employer]. [facility] 03-02-2024 Miscellaneous Notes PATIENT NOTIFIED OF SAME. Will have labs completed 03/06/24 Records released faxed to [employer] [facility]. Please return call, let them know hem/onc [...] like a bullseye. Patient was seen at [facility] where he was tested for lyme disease as well as protein electrophoresis serum. Results are in labs. Patient's Gamma Globulin was at 0.52 which is abnormal low. [facility] had told patient that with the Bullseye rash and abnormal blood test that patient may want to see hematology for this. is asking if provider can advise about this on whether more labs need to be done or should patient see hematology for this? Please review and advise, Traci Jordan RN documented in this encounter [facility] 03-02-2024 Telephone encounter Note Please return call, let them know hem/onc recommended some follow up blood work to check IGG, IGA, IGM levels. Orders placed. Also can we check on getting the office note from [facility] for this? Thank you! [facility] 02-28-2024 Telephone encounter Note Pt called and is notified of providers message and instructions. Pt voices understanding. Pt would like provider to get a hold of hem/onc and see if they would like any additional testing. Please call and advise Pt once provider hears from them. Sofi Rapp RN [facility] 02-28-2024 Telephone encounter Note Please let them know that liver dysfunction can be a cause of low gamma globulin so that is a possibility. I can reach out to hem/onc and see if they recommend any additional testing or referral but with that being the only abnormal on the panel I would not refer at this point. [facility] 02-28-2024 Telephone encounter Note Pt calling back in about the following lab done here on 01/21/24: Gamma Globulin 0.53 - 1.51 g/dL 0.52 Low Pt asking if he will need to get more labs added to his lab work for when he comes in for his doctor appointment. [facility] [place] him to call PCP and ask about his. Pt would like provider to call him back on his cell #. I told him I didn't know if they would get back to him this week. [facility] 02-27-2024 Telephone encounter Note Patient and calls and states that patient had a rash over body that looked like a bullseye. Patient was seen at [facility] where he was tested for lyme disease as well as protein electrophoresis serum. Results are in labs. Patient's Gamma Globulin was at 0.52 which is abnormal low. [facility] told patient that with the Bullseye rash and abnormal blood test that patient may want to see hematology for this. is asking if provider can advise about this on whether more labs need to be done or should patient see hematology for this? Please review and advise, Traci Jordan RN [facility] 01-20-2024 Instructions Molly Kearns MD - 01/20/2024 [...] months from now. documented in this encounter [facility] 12-25-2023 Telephone encounter Note Patient has been [...] 06/22/2024 Please advise. Thank you. Norma Garvey. [facility] 12-25-2023 Miscellaneous Notes Patient has been identified [...] you. Norma Garvey. documented in this encounter [facility] 12-03-2023 Telephone encounter Note PA approved : Authorized from December 02, 2023 to December 01, 2024 Patient was notified Leonora Thomason MA [facility] 12-03-2023 Miscellaneous Notes PA approved : Authorized from December 02, 2023 to December 01, 2024 Patient was notified Leonora Thomason MA Electronic PA completed for freestyle brenda 2 documented in this encounter [facility] 12-02-2023 Telephone encounter Note Electronic PA completed for freestyle brenda 2 [facility] 12-02-2023 History of Present illness Narrative This note was created using [employer]. Subjective Lonnie Denton is a 58 year [...] to his liver specialist, Dr. Sanchez, in [place], which he attributes to the stress of [...] F) Resp 16 Ht 177.8 cm (5' 10) Wt 84 kg (185 lb 3 oz) [...] as of this encounter: 177.8 cm (5' 10). Weight as of this encounter: 84 kg [...] Abs Lymph 1.00 - 4.00 k/uL 1.65 Ionia% % 8.4 Abs Ionia <0.87 k/uL 0.42 Eosin% % 1.8 Abs [...] no current signs of iron overload. - College Administrator and heating element repairer have advised against further ferritin checks unless clinically indicated. - Continue monitoring AST and ALT levels as per heating element repairer's recommendations. - Educated on the importance of [...] patient to consider after further discussion with heating element repairer. - Educated on the importance of maintaining a healthy diet and regular exercise to manage fatty liver. - Follow-up with heating element repairer Dr. Sanchez in March. Encounter for long-term [...] Molly Kearns MD documented in this encounter [facility] 11-26-2023 Telephone encounter Note Prescription Refill Information [...] Yaneli Steward November 26, 2023 1:03 PM [facility] 11-26-2023 Miscellaneous Notes Prescription Refill Information The [...] 2023 1:03 PM documented in this encounter [facility] 11-08-2023 Telephone encounter Note Images from the original note were not included. Electronic PA rec'd and completed and approved for reader. Pharmacy notified. Prior authorization approved Payer: [employer] [phone] CaseId:[id number];Status:Approved;Rev iew Type:Prior Auth;Coverage Start Date:11/05/2023;Coverage End Date:11/07/2024; [...] destination. To be filled at: e- [facility]/pharmacy #[id number] [place] [address] [address] [facility] [phone] [id number] [facility] 11-08-2023 Miscellaneous Notes Images from the original note were not included. Electronic PA rec'd and completed and approved for reader. Pharmacy notified. Prior authorization approved Payer: [employer] [phone] CaseId:[id number];Status:Approved;Rev iew Type:Prior Auth;Coverage Start Date:11/05/2023;Coverage End Date:11/07/2024; [...] to its destination. To be filled at: [facility]/pharmacy #[id number] [place] [address] - [address] [facility] [phone] documented in this encounter [facility] 11-05-2023 Telephone encounter Note Sent. [facility] 11-05-2023 Miscellaneous Notes Sent. Prescription Refill Information [...] Yes Requesting a new Freestyle Brenda 2 [place] to be sent to the [facility] in [place] Patient says he has sensors. Bel Slade November 05, 2023 11:42 AM documented in this encounter [facility] 11-05-2023 Telephone encounter Note Prescription Refill Information [...] with this provider/department: Yes Requesting a new [employer] 2 [place] to be sent to the [facility] in [place] Patient says he has sensors. Bel M Mc Slade November 05, 2023 11:42 AM [facility] Work Phone: 09-26-2023 History of Present illness [...] Francisco Sanchez MD documented in this encounter [facility] 09-26-2023 History of Present illness Narrative Patient [...] 3 (>/= S3: > 66% steatosis) Reference Pepe Y, Hector Q, Pepe T, Sofia J, Pepe H, Diop T. Controlled attenuation parameter for assessment of hepatic steatosis grades: a diagnostic meta-analysis. Int J Clin Exp Med. 2015 Jan 15;8(10):57015-18. PMID: 63384305; PMCID: [id number]. Luly Paulson, Tori JOHNY, Cheryle M, Rosemary F, Destiny J, Roselyn O, Alyssa F, Zion M, Bethany G, Geoffrey A, Matt E, Kala L, Janay G, Nydia A, Malia U, Deepa S, Hawa P, Yin V, Saleh V, Bao M, April PINEDA. Refining the Baveno elastography criteria for the definition of compensated advanced chronic liver disease. J Hepatol. 2020;74(5):5555-0827. doi: 10.1016/j.jhep.2020.11.050. Epub 2019Mar 30. PMID: 67300552. documented in this encounter [facility] 09-24-2023 Telephone encounter Note Nurse sent MCM to the patient to answer their question. Authorization is currently pending Jaki Lebron RN September 24, 2023 9:33 AM [facility] 09-24-2023 Miscellaneous Notes Nurse sent MCM to the patient to answer their question. Authorization is currently pending Jaki Lebron RN September 24, 2023 9:33 AM Patient called in requesting that the prior authorization is in for his procedure prior to his Dr. Sanchez appointment Please review and advise Matthieu Gamboa District Sales Manager ll documented in this encounter [facility] 09-24-2023 Telephone encounter Note Patient called in requesting that the prior authorization is in for his procedure prior to his Dr. Sanchez appointment Please review and advise Matthieu Gamboa District Sales Manager ll [facility] 08-16-2023 History of Present illness Narrative SUBJECTIVE [...] use since March. Following with hepatology at [facility]. LULU was positive. Concerned about autoimmune hepatitis. Had second opinion with [facility]. Reviewed slides from [facility]. Not autoimmune hepatitis. Fatty liver. 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 ([facility]) - 10/26/2022 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 - 05/21/2018 Nicole (Nonalcoholic Steatohepatitis) - 05/14/2018 Elevated Ferritin - 05/14/2018 Type 2 Diabetes Mellitus Without Complication, Without Long-Term Current Use of Insulin ([facility]) - 03/26/2017 Allergic Rhinitis - 06/04/2008 Comment: [...] socks removed, Are you having foot pain no, No deformities, ulcers, calluses, normal distal pulses, [...] with long-term current use of insulin (HCC) - ICD9: 250.00, V58.67, ICD10: E11.9, Z79.4 (primary diagnosis) - Controlled - Continue current medications - Counseled on healthy diet and regular exercise - Discussed need for and benefit of weight loss. BMI 25.97 kg/(m^2) - Estrogen Gene TestYLE BRENDA 2 READER 2. Essential hypertension - [...] to improve, for Keep next scheduled appointment.. Jean Sylvester APRN-RUCHI documented in this encounter [facility] 08-05-2023 Miscellaneous Notes Canceled as requested one set of labs.The other set of labs would not let me cancel, but set date for expiration 08/21/23. Does not have to have drawn even if is a standing order. Patient calls and is asking if Iron and Ferritin labs can be discontinued. Per patient Dr. Sanchez Car Hostler had told patient that lab values would not be accurate due to hemochromatosis. Please review and advise, Traci Jordan, RN documented in this encounter [facility] 06-07-2023 Miscellaneous Notes Order deleted as requested by patient Consult placed. I do not see an active order for hepatitis panel. Did he want to cancel CBC iron and ferritin? Pt called for the followin.referral to [facility] gastro to see Dr. Francisco Sanchez Apt has been booked. Need referral to be approved by his insurance. Apt is 3-24 dx Autoimmune hepatitis. 2.pt asking to have the lab for autoimmune hep be removed form his list of labs to be done. Pt reports he had this done at [facility]. Wants to make sure when he comes in to get his standing orders done that this is not done again. Liv Cartagena LPN documented in this encounter [facility] 03-23-2023 Miscellaneous Notes Spoke with patient. Given [...] for this? Please review and advise, Traci Jordan, RN documented in this encounter [facility] 11-14-2022 Miscellaneous Notes Pt calling and asking if we could please fax lab results to Dr. Sarmiento's office at [phone]. They see that the lab report is back. Also given Dr. Kearns results and instructions. Pt verbalizes understanding. Faxing lab results to Dr. Sarmiento now. Let them know CMP and CBC are done since can do here at [facility] [place] but rest if labs still in process since sent to [facility] lab. I pulled up CMP and CBC with results going back to 11/07/21 to fax as requested to Dr. Zavala. Noted that potassium is a little low at 3.5 (improved from 3.1 at [facility]) LFTs showed elevated of total bilirubin and Alk phos and AST and ALT. Last bilirubin at [facility] was 10.60 on 10/22 Albumin was 2.8 [...] be faxed to Dr Sarmiento office at [phone]. is asking if my chart message could be sent to let them know the CMP had been faxed please. documented in this encounter [facility] 10-26-2022 Instructions Molly Kearns MD - 10/26/2022 [...] to stay on. documented in this encounter [facility] 10-26-2022 History of Present illness Narrative This note was created using [employer]. Subjective Lonnie Denton is a 56 year [...] with long-term current use of insulin ([facility]) E11.9 flash glucose scanning reader (FREESTYLE BRENDA 2 READER) Z79.4 flash glucose sensor (FREESTYLE BRENDA 2 SENSOR) kit 2. 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 Elevated ferritin R79.89 4. Autoimmune hepatitis treated with steroids ([facility]) K75.4 5. Essential hypertension I10 Above issues [...] Molly Kearns MD documented in this encounter [facility] 10-25-2022 History of Present illness Narrative Patient [...] Ninoska Odonnell LPN documented in this encounter [facility] 10-24-2022 Miscellaneous Notes Spoke with patient's . Given message from provider's office regarding Insulin scripts. Scheduled appointment with [place] Nurse for Insulin teaching on 10/25. Scheduled Hospital discharge F/U with PCP on 10/26 for 40 minutes. See PCP request for biopsy result in previous note. Steph Garsia RN How about 10/29 hospital follow up [...] or nurse or DM nurse or DM SALES ENGINEER [employer] for teaching if willing to give self insulin titrating down the prednisone. Might also be high s/p acute pancreatitis. If knows how to give self insulin (though I have no record that ever gave self insulin), can send Rx for long acting plus short acting. I sent the prescriptions for insulin so that may leaf size picker the RXs whether or not needs DM teaching on insulin use. Can bring to appointment with one of the above noted providers to help with teaching if needed. Might just need short term while getting off prednisone, but not sure given recent pancreatitis whether might need some insuline for a while during recovery from that. Also, check [facility] for the pathology report on the biopsy [...] time? Steph Garsia, RN Pt was at [facility] 10/18 - 10/23/22. Dx'd with acute cholecystitis, [...] Fanny Gabriel LPN documented in this encounter [facility] 10-23-2022 Discharge summary Note Date/Time October 23, 2022 8:12am [facility] Medical Records Department [address] [place] [address] Discharge Summary 10/23/22 0810 MR#: [id number] Acct: [id number] Name: LONNIE MORA Rep #:[id number] : 1965 56 From: Bryson hoyt MD PCP: Dr. oMlly Kearns MD Status:AD M IN [facility] Prov[facility] Date of Admission: 10/18/22 Primary Care Physician: Dr. Molly Kearns MD Consultations 10/19/22 07:49 Consult: Gastroenterology Routine Consulting Provider: [facility] Reason for Consult: Progressive bili elevation EMERGENT Consult: No MD Notified: Yes Date Notified: 10/19/22 Time Notified: 07:49 Method of Notification: Text 10/22/22 08:58 Consult: Interventional Radiology Routine Consulting Provider: Mao Yadav Reason for Consult: LIVER BIOPSY EMERGENT Consult: Yes MD Notified: Yes Date Notified: 10/22/22 Time Notified: [...] recheck labs tomorrow. Bryson Merritt MD Pager: [facility] [address] [place] [address], [address] [place] [address] Office: (6) Diabetes: Status: Chronic Code(s): E11.9 - Type [...] mg PO BID #6 tabs 06/09/20 omega 3-oqe-ejl-fish oil 1,200 mg (144 mg-216 mg) capsule (Fish Oil) cap PO [facility] 10/18/22 tramadol 50 mg tablet 50 [...] Consulting Providers: Mao Yadav Instructions Patient Instructions: RAD GUNNAR Biopsy Liver Dc, ISRAEL MAHER Procedural Sedation [...] mg PO BID Qty: 6 0RF omega 4-hsf-ytc-fish oil [Fish Oil] 1,200 (144-216) mg capsule [...] Merritt MD; Dr. Molly Kearns MD~ Signed [facility] Work Phone: 1(253) 243-837207-03-2023 Progress note Author Darrius Rubalcava [facility] October 22, 2022 11:29am Note Date/Time October 22, 2022 11:26 am [facility] Medical Records Department [address] [place] [address] Progress Note - Surgery 10/22/22 1120 MR#: [id number] Acct: [id number] Name: LONNIE MORA Rep #:[id number] : 1965 56 From: Darrius Crowe PCP: Dr. Molly Kearns MD Status:AD M IN [facility] Subjective Subjective Patient seen and examined during [...] 86.4 H, Lymph % (Auto) 6.3 L, Ionia % (Auto) 6.7, Eos % (Auto) 0.0, [...] steroid therapy. Charges/Coding Visit Charges Inpatient E&M: 51675 Subs Hosp L2 10/22/22 1126 <Electronically signed by Darrius Rubalcava MD> Cosigner Signature (if applicable): CC: ~ Signed [facility] Work Phone: 1(284) 888-830107-02-2023 Progress note Author Ranjith Sarmiento [facility] October 21, 2022 5:00pm Note Date/Time October 21, 2022 5:00p m [facility] Medical Records Department [address] [place] [address] Progress Note - GI 10/21/22 1657 MR#: [id number] Acct: [id number] Name: LONNIE MORA Rep #:[id number] : 1965 56 From: Ranjith Sarmiento DO PCP: Dr. Molly Kearns MD Status:AD M IN Location: [facility] QU203-1 Subjective Subjective Patient is doing a lot [...] 90, TIBC 375, Iron Saturation 24.0, Ferritin 02994 H, Ammonia 29.0, Lactate Dehydrogenase 528 H, Total Creatine Kinase 126, C-React Prot Ext Range 88.60 H 10/21/22 05:36: WBC 9.3, RBC 4.65, Hgb 14.6, Hct 41.4, MCV 89.0, MCH 31.4, MCHC 35.3, RDW Std Deviation 40.9, RDW Coeff of Rodrigue 12.5, Plt Count 167, MPV 12.0, Immature Gran % (Auto) 0.600, Neut % (Auto) 91.9 H, Lymph % (Auto) 4.8 L, Ionia %(Auto) 2.6, Eos % (Auto) 0.0, Baso [...] for hemochromatosis. Charges/Coding Visit Charges Inpatient E&M: 82654 Subs Hosp L3 10/21/22 1700 <Electronically signed by Ranjith Friend DO> Cosigner Signature (if applicable): CC: ~ Signed [facility] Work Phone: 1(248) 756-512907-02-2023 Progress note Author Bryson Merritt [facility] October 21, 2022 9:35am Note Date/Time October 21, 2022 9:35a m [facility] Medical Records Department [address] [place] [address] Progress Note - Surgery 10/21/22 0934 MR#: [id number] Acct: [id number] Name: LONNIE MORA Rep #:[id number] : 1965 56 From: Bryson hoyt MD PCP: Dr. Molly Kearns MD Status:AD M IN Location: [facility] ZM873-0 Subjective Subjective Patient says he feels well. [...] 90, TIBC 375, Iron Saturation 24.0, Ferritin 50993 H, Ammonia 29.0, Lactate Dehydrogenase 528 H, Total Creatine Kinase 126, C-React Prot Ext Range 88.60 H 10/21/22 05:36: WBC 9.3, RBC 4.65, Hgb 14.6, Hct 41.4, MCV 89.0, MCH 31.4, MCHC 35.3, RDW Std Deviation 40.9, RDW Coeff of Rodrigue 12.5, Plt Count 167, MPV 12.0, Immature Gran % (Auto) 0.600, Neut % (Auto) 91.9 H, Lymph % (Auto) 4.8 L, Ionia %(Auto) 2.6, Eos % (Auto) 0.0, Baso [...] recheck labs tomorrow. Bryson Merritt MD Pager: [facility] [address] [place] [address], [address] [place] [address] Office: 10/21/22 0930 <Electronically signed by Bryson Merritt MD> Cosigner Signature (if applicable): CC: ~ Signed [facility] Work Phone: 1(998) 942-630207-01-2023 Consult note Author Ranjith Sarmiento [facility] October 20, 2022 8:05pm Note Date/Time October 20, 2022 7:38p m [facility] Medical Records Department [address] [place] [address] Consultation - GI 10/20/22 193 MR#: [id number] Acct: [id number] Name: LONNIE MORA Rep #:[id number] : 1965 56 From: Ranjith Sarmiento DO PCP: Dr. Molly Kearns MD Status:AD M IN Location: [facility] CQ399-5 HPI Consult Data Date of Consult: 10/20/22 [...] Currently complains of bloating and abdominal discomfort. [facility] Medical History (Updated 10/20/22 @ 19:47 by [...] tabs 06/09/20 [Rx Last Taken Unknown] omega 1-nho-eew-fish oil 1,200 mg (144 mg-216 mg) capsule [...] 88.4 H, Lymph % (Auto) 4.7 L, Ionia % (Auto) 6.2, Eos % (Auto) 0.1, [...] from Nicole Charges/Coding Visit Charges Inpatient E&M: 86687 Init Hosp L3 10/20/222004 <Electronically signed by Ranjith Friend DO> Cosigner Signature (if applicable): CC: Dr. Molly Kearns MD~ Signed [facility] Work Phone: 1(401) 679-860107-01-2023 Progress note Author Bryson Merritt [facility] October 20, 2022 7:05am Note Date/Time October 20, 2022 7:05a m [facility] Medical Records Department [address] [place] [address] Progress Note - Surgery 10/20/2204 MR#: [id number] Acct: [id number] Name: LONNIE MORA Rep #:[id number] : 1965 56 From: Bryson hoyt MD PCP: Dr. Molly Kearns MD Status:AD M IN Location: [address] Subjective Subjective Patient is doing much better. [...] LFTs start decreasing. Bryson Merritt MD Pager: [facility] [address] [place] [address], [address] [place] [address] Office: 10/20/22 0705 <Electronically signed by Bryson Merritt MD> Cosigner Signature (if applicable): CC: ~ Signed [facility] Work Phone: 1(900) 866-400906-30-2023 Procedure [facility] 10-19-2022 Progress note Author Darrius Rubalcava [facility] October 19, 2022 1:04pm Note Date/Time October 19, 2022 10:5 8am [facility] Medical Records Department [address] [place] [address] Progress Note - Surgery 10/19/22 1058 MR#: [id number] Acct: [id number] Name: LONNIE MORA Rep #:[id number] : 1965 56 From: Darrius Crowe PCP: Dr. Molly Kearns MD Status:AD M IN [facility] Subjective Subjective Patient seen and examined during [...] 83.9 H, Lymph % (Auto) 8.2 L, Ionia % (Auto) 6.5, Eos % (Auto) 0.8, [...] Clarity Clear, Urine pH 5.0, Ur Specific Merom 1.015, Urine Protein Negative, Urine Glucose (UA) [...] 92.0 H, Lymph % (Auto) 3.3 L, Ionia % (Auto) 4.1, Eos % (Auto) 0.0, Baso % (Auto) 0.2, Absolute Neuts (auto) 10.7 H, Absolute Lymphs (auto) 0.38 L, Nucleated RBC % 0, Differential Comment SCANNED, Sodium 136, Potassium 3.5, Chloride 104, Carbon Dioxide 24.0, Anion Gap8, BUN 10, Creatinine 0.90, Estim Creat Clear Calc 95.76, Est GFR (MDRD) Af Cbbh321, Est GFR (MDRD) Non-Af 93, BUN/Creatinine Ratio [...] discussed above. Charges/Coding Visit Charges Inpatient E&M: 15297 Subs Hosp L2 10/19/22 1304 <Electronically signed by Darrius Rubalcava MD> Cosigner Signature (if applicable): CC: ~ Signed [facility] Work Phone: 1(667) 199-704906-30-2023 Discharge summary Author Noe Barbour [facility] October 19, 2022 7:26am Note Date/Time October 18, 2022 2:26 pm [facility] Medical Records Department [address] [place] [address] Emergency Department Summary 10/18/22 MR#: [id number] Acct: [id number] Name: LONNIE MORA Rep #:[id number] : 1965 56 From: Noe Longo PCP: Dr. Molly Kearns MD Status:AD M IN Location: MS3 [id number] HPI <Dr. Noe Barbour DO - Last [...] tabs 06/09/20 [Rx Last Taken Unknown] omega 0-qgt-whc-fish oil 1,200 mg (144 mg-216 mg) capsule [...] clinician: N/A This note was generated with 10-20 Media dictation software. It may contain incorrectwords, spelling, [...] 83.9 H Lymph % (Auto) 8.2 L [place] % (Auto) 6.5 Eos % (Auto) 0.8 [...] Clarity Clear Urine pH 5.0 Ur Specific Merom 1.015 Urine Protein Negative Urine Glucose (UA) [...] Garibay, DO - Last Filed: 10/18/22 18:42> [facility] Lab Data Labs: Laboratory Results - last 24 hr 10/18/22 10/18/22 14:30 16:03 WBC 12.0 H RBC 5.05 Hgb 15.7 Hct 44.2 MCV 87.5 MCH 31.1 MCHC 35.5 RDW Std Deviation 37.2 RDW Coeff of Rodrigue 11.8 Plt Count 207 MPV 10.9 Immature Gran % (Auto) 0.300 Neut % (Auto) 83.9 H Lymph % (Auto) 8.2 L [place] % (Auto) 6.5 Eos % (Auto) 0.8 [...] Clarity Clear Urine pH 5.0 Ur Specific Merom 1.015 Urine Protein Negative Urine Glucose (UA) [...] Acute cholecystitis Disposition Disposition: Acute Care Hospital [facility] Discharge Date/Time: 10/18/22 19:38 What to do if you have Problems For any increased pain, shortness of breath, bleeding, nausea or vomiting, chestpain, or any unexpected problems, contact your Primary Care Provider. Call [facility] ([phone]) or report to the closest Emergency Room. Call 911 if necessary. 10/19/22 0729 <Electronically signed by Noe Le DO> Cosigner Signature (if applicable): 10/19/22 0125 <Electronically signed by Cristobal Garibay DO> CC: Dr. Molly Kearns MD ~ Signed [facility] Work Phone: 1(657) 356-346106-29-2023 History and physical note Author Darrius Rubalcava [facility] October 18, 2022 7:18pm Note Date/Time October 18, 2022 7:19 pm [facility] Medical Records Department [address] [place] [address] History & Physical Exam 10/18/22 1904 MR#: [id number] Acct: [id number] Name: LONNIE MORA Rep #:[id number] : 1965 56 From: Darrius Crowe PCP: Dr. Molly Kearns MD Status:RE G ER Location: ED HPI - General General Date of Admission: 10/18/22 Date of Service: 10/18/22 Chief Complaint: Acute onset abdominal pain HPI Narrative LONNIE MORA, is a 56 M who presents to [facility] ER in the company of his [...] salad and chips and a dinner of Northern Irish beef burrito. He denies any associated nausea with his discomfort. He reports a shifting distribution of his discomfort and initially suggest that this is large bowel that is hurting while gesturing to his upper abdomen. Mr. [...] tabs 06/09/20 [Rx Last Taken Unknown] omega 0-qem-bli-fish oil 1,200 mg (144 mg-216 mg) capsule [...] 83.9 H, Lymph % (Auto) 8.2 L, [place] % (Auto) 6.5, Eos % (Auto) 0.8, [...] Clarity Clear, Urine pH 5.0, Ur Specific Merom 1.015, Urine Protein Negative, Urine Glucose (UA) [...] patient's CMP Charges/Coding Visit Charges Inpatient E&M: 00603 Init Hosp L2 10/18/221917 <Electronically signed by Darrius Rubalcava MD> Cosigner Signature (if applicable): CC: Dr. Molly Kearns MD; Dr. Darrius Rubalcava MD~ Signed [facility] Work Phone: 1(611) 241-314403-18-2023 Miscellaneous Notes* Telephone Encounter - Bel Brizuela [...] and advise. Bel Brizuela [facility] History of Present illness Narrative* Molly Kearns MD - 07/04/2022 3:55 PM EDT This note was created using Jetpacriter. Subjective Lonnie Denton is a 56 year [...] Height as of 03/26/17: 174.6 cm (5' 8.75). Weight as of this encounter: 85.7 kg [...] Lymph 1.00 - 4.00 k/uL 1.73 1.81 Ionia% % 10.7 7.6 Abs Ionia <0.87 k/uL 0.48 0.40 Eosin% % 3.3 [...] sleep. Molly Kearns MD [facility] History of Present illness Narrative* Molly Kearns MD - 03/05/2022 4:15 PM EST This note was created using Jetpacriter. Subjective Lonnie Denton is a 56 year old male. Patient presents with: Follow Up SUBJECTIVE: Lonnie Detnon is a 56 year old year old gentleman here today for 4 month follow up appointment forreview of medical conditions. Stress the past couple months. 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 Working in [employer] starting next week. Hanging in there. BPs [...] Height as of 03/26/17: 174.6 cm (5' 8.75). Weight as of this encounter: 83 kg [...] Lymph 1.00 - 4.00 k/uL 1.73 1.81 Ionia% % 10.7 7.6 Abs Ionia <0.87 k/uL 0.48 0.40 Eosin% % 3.3 [...] indicated. Molly Kearns MD [facility] History of Present illness Narrative* Molly Kearns [...] Height as of 03/26/17: 174.6 cm (5' 8.75). Weight as of this encounter: 86.2 kg [...] Abs Lymph 1.00 - 4.00 k/uL 1.73 Ionia% % 10.7 Abs Ionia <0.87 k/uL 0.48 Eosin% % 3.3 Abs [...] RECOMBINANT,IM Molly Kearns MD [facility] History of Past illness Narrative* Problem Noted Date Resolved Date Diabetes mellitus type 2, controlled, without co mplications 01/05/2011 08/31/2015 OBESITY NOS 03/23/2015 Unspecified sleep apnea 09/12/19 17 documented as of this encounter (statuses as of 01/23/2022) [facility] of [facility] illness Narrative* Problem Noted Date Resolved Date Diabetes mellitus type 2, controlled, without co mplications 01/05/2011 08/31/2015 OBESITY NOS 03/23/2015 Unspecified sleep apnea 09/12/19 17 documented as of this encounter (statuses as of 03/29/2022) [facility] of [facility] illness Narrative* Problem Noted Date Resolved Date Diabetes mellitus type 2, controlled, without co mplications 01/05/2011 08/31/2015 OBESITY NOS 03/23/2015 Unspecified sleep apnea 09/12/19 17 documented as of this encounter (statuses as of 07/09/2022) [facility] Narrative* Problem Noted Date Resolved Date Diabetes mellitus type 2, controlled, without co mplications 01/05/2011 08/31/2015 OBESITY NOS 03/23/2015 Unspecified sleep apnea 09/12/19 17 documented as of this encounter (statuses as of 08/03/2022) [facility] Narrative* Problem Noted Date Resolved Date Diabetes mellitus type 2, controlled, without co mplications 01/05/2011 08/31/2015 OBESITY NOS 03/23/2015 Unspecified sleep apnea 09/12/19 17 documented as of this encounter (statuses as of 10/26/2022) [facility] Narrative* Problem Noted Date Diagnosed Date Resolved Date Diabetes mellitus type 2, co ntrolled, without complications 01/05/2011 08/31/2015 OBESITY NOS 03/23/2015 Unspecified sleep apnea 08/21 documented as of this encounter (statuses as of 10/30/2022) [facility] Narrative* Problem Noted Date Diagnosed Date Resolved Date Diabetes mellitus type 2, co ntrolled, without complications 01/05/2011 08/31/2015 OBESITY NOS 03/23/2015 Unspecified sleep apnea 08/21 documented as of this encounter (statuses as of 11/15/2022) [facility] Narrative* Problem Noted Date Diagnosed Date Resolved Date Diabetes mellitus type 2, co ntrolled, without complications 01/05/2011 08/31/2015 OBESITY NOS 03/23/2015 Unspecified sleep apnea 08/21 documented as of this encounter (statuses as of 12/03/2022) [facility] Narrative* Problem Noted Date Diagnosed Date Resolved Date Diabetes mellitus type 2, co ntrolled, without complications 01/05/2011 08/31/2015 OBESITY NOS 03/23/2015 Unspecified sleep apnea 08/21 documented as of this encounter (statuses as of 01/19/2023) [facility] Narrative* Problem Noted Date Diagnosed Date Resolved Date Diabetes mellitus type 2, co ntrolled, without complications 01/05/2011 08/31/2015 OBESITY NOS 03/23/2015 Unspecified sleep apnea 08/21 documented as of this encounter (statuses as of 03/23/2023) [facility] Narrative* Problem Noted Date Diagnosed Date Resolved Date Diabetes mellitus type 2, co ntrolled, without complications 01/05/2011 08/31/2015 OBESITY NOS 03/23/2015 Unspecified sleep apnea 08/21 documented as of this encounter (statuses as of 06/07/2023) [facility] Narrative* Problem Noted Date Diagnosed Date Resolved Date Diabetes mellitus type 2, co ntrolled, without complications 01/05/2011 08/31/2015 OBESITY NOS 03/23/2015 Unspecified sleep apnea 08/21 documented as of this encounter (statuses as of 08/07/2023) [facility] Diagnosis Elevated ferritin- Primary Other abnormal blood chemistry Type 2 diabetes mellitus without complication, without long-term current use of insulin (HCC) Essential hypertension Unspecified essential hypertension Mixed hyperlipidemia Kidney stones Calculus of kidney NICOLE (nonalcoholic steatohepatitis) Other chronic nonalcoholic liver disease Need for vaccination Need for prophylactic vaccination and inoculation against unspecified single disease documented [facility] this encounter [facility] Diagnosis Type 2 diabetes mellitus without complication, without long-term current use of insulin (HCC)- Primary Essential hypertension Unspecified essential hypertension Elevated ferritin Other abnormal blood chemistry Mixed hyperlipidemia [facility] this encounter [facility] Diagnosis Type 2 diabetes mellitus without complication, without long-term current use of insulin (HCC)- Primary Elevated ferritin Other abnormal blood chemistry Essential hypertension Unspecified essential hypertension Mixed hyperlipidemia Encounter for long-term current use of medication documented [facility]* Diagnosis Onset Date Resolution Status Abdominal pain acute Acute cholecystitis acute Acute gallstone pancreatitis acute Acute pancreatitis acute Common bile duct dilatation acute Transaminitis acute [facility] Work Phone: Evaluation note* Diagnosis Onset Date Resolution Status Abdominal pain acute Acute cholecystitis acute Acute gallstone pancreatitis acute Acute hepatitis acute Acute pancreatitis acute Common bile duct dilatation acute Hemochromatosis acute Hyperbilirubinemia acute Transaminitis acute Diabetes chronic [facility] Work Phone: Evaluation note* Diagnosis Type 2 diabetes mellitus without complication, without long-term current use of insulin (HCC)- Primary [facility] encounter [facility]* Diagnosis Type 2 diabetes mellitus without complication, with long-term current use of insulin (HCC)- Primary 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) Elevated ferritin Other abnormal blood chemistry Autoimmune hepatitis treated with steroids (HCC) Autoimmune hepatitis Essential hypertension Unspecified essential hypertension [facility] Elevated ferritin- Primary Other abnormal blood chemistry Encounter for long-term current use of medication Mixed hyperlipidemia Type 2 diabetes mellitus with hyperglycemia, with long-term current use of insulin (HCC) Essential hypertension Unspecified essential hypertension [facility] Diagnosis Onset Date Resolution Status Acute hepatitis chronic Elevated ferritin chronic Hemochromatosis chronic [facility] Work Phone: Evaluation note* Diagnosis Autoimmune hepatitis treated with steroids (HCC)- Primary Autoimmune hepatitis [facility] Diagnosis Type 2 diabetes mellitus without complication, with long-term current use of insulin (HCC)- Primary Essential hypertension Unspecified essential hypertension 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) Fatty liver Other chronic nonalcoholic liver disease Encounter for immunization Need for other specified prophylactic vaccination against single bacterial disease [facility] Liver disease- Primary Unspecified disorder of liver [facility] Diagnosis Liver disease- Primary Unspecified disorder of liver [facility] Diagnosis Type 2 diabetes mellitus without complication, with long-term current use of insulin (HCC)- Primary [facility] Diagnosis Routine medical exam- Primary Routine general medical examination at a health care facility Type 2 diabetes mellitus without complication, with long-term current use of insulin (HCC) 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) Essential hypertension Unspecified essential hypertension Fatty liver Other chronic nonalcoholic liver disease Encounter for long-term current use of medication [facility] Diagnosis Hypogammaglobulinemia (HCC)- Primary Hypogammaglobulinaemia, unspecified [facility] Diagnosis Hypogammaglobulinemia (HCC)- Primary Hypogammaglobulinaemia, unspecified [facility] Diagnosis Hypogammaglobulinemia (HCC)- Primary Hypogammaglobulinaemia, unspecified [facility] Diagnosis Liver disease- Primary Unspecified disorder of liver [facility] encounter [facility] Diagnosis Type 2 diabetes mellitus without complication, with long-term current use of insulin (HCC) [facility] Diagnosis Liver disease- Primary Unspecified disorder of liver [facility] Diagnosis Type 2 diabetes mellitus without [...] unspecified single disease [facility] Encounter for immunization- Primary Need for other specified prophylactic vaccination against single bacterial disease [facility] Diagnosis Type 2 diabetes mellitus without complication, with long-term current use of insulin (HCC) [facility] Diagnosis Need for influenza vaccination- Primary Need for prophylactic vaccination and inoculation against influenza Encounter for immunization Need for other specified prophylactic vaccination against single bacterial disease documented [facility] this encounter [facility] Author Darrius Rubalcava [facility] October 18, 2022 7:18pm Note Date/Time October 18, 2022 7:19 pm [facility] Medical Records Department [address] [place] [address] History & Physical Exam 10/18/22 1904 MR#: [id number] Acct: [id number] Name: LONNIE MORA Rep #:[id number] : 1965 56 From: Darrius Crowe PCP: Dr. Molly Kearns MD Status:RE G ER Location: ED HPI - General General Date of Admission: 10/18/22 Date of Service: 10/18/22 Chief Complaint: Acute onset abdominal pain HPI Narrative LONNIE MORA, is a 56 M who presents to [facility] ER in the company of his [...] salad and chips and a dinner of Northern Irish beef burrito. He denies any associated nausea with his discomfort. He reports a shifting distribution of his discomfort and initially suggest that this is large bowel that is hurting while gesturing to his upper abdomen. Mr. [...] and a remote history of pilonidal cystectomy. [facility] Home Medications ketorolac 10 mg tablet 10 [...] tabs 06/09/20 [Rx Last Taken Unknown] omega 3-kcl-nfk-fish oil 1,200 mg (144 mg-216 mg) capsule [...] 83.9 H, Lymph % (Auto) 8.2 L, [place] % (Auto) 6.5, Eos % (Auto) 0.8, [...] Clarity Clear, Urine pH 5.0, Ur Specific Merom 1.015, Urine Protein Negative, Urine Glucose (UA) [...] patient's CMP Charges/Coding Visit Charges Inpatient E&M: 28190 Init Hosp L2 10/18/221917 <Electronically signed by Darrius Rubalcava MD> Cosigner Signature (if applicable): CC: Dr. Molly Kearns MD; Dr. Darrius Rubalcava MD~ Signed [facility] Work Phone: Chief Complaint and Reason [...] No October 18, 2022 2:20pm Power of Assembler [employer] No October 18 3 2:20pm Advance Directive Response Recorded Date/ Time Living Will No October 18, 2022 7:55pm Power of Assembler [employer] No October 18 3 7:55pm Advance Directive Response Recorded Date/ Time Living Will No October 18, 2022 6:55pm Power of Assembler [employer] No October 18 3 6:55pm Reason for Referral Specialty Diagnoses / Procedures Referred By Contac t Referred To Contact Diagnoses Type 2 diabetes mellitus without complication, with long-term current use of insulin (HCC) Molly Kearns MD [address] [place] [address] Referral ID Status Reason Start Date Expiration Date V isits Requested Visits Authorized [id number] Authorized 10/26/2022 10/26/2023 1 1 Specialty Diagnoses / Procedures Referred By Contac t Referred To Contact Gastroenterology Diagnoses Autoimmune hepatitis treated with steroids (HCC) Procedures CONSULT TO GASTROENTEROLOGY OFFICE/OUTPATIENT [facility] 60 MINUTES Bety Bajwa, INTAKE MANAGER.GILL TENDER [address] [place] [address] Referral ID Status Reason Start Date Expiration Date Visits Requested Visits Authorized [id number] Authorized PCP Requested Referral 06/07/2023 06/06/2024 1 1 Specialty Diagnoses / Procedures Referred By Contac t Referred To Contact Diagnoses Type 2 diabetes mellitus without complication, with long-term current use of insulin (HCC) Jean Sylvester APRN.[employer] [address] [place] [address] Referral ID Status Reason Start Date Expiration Date V isits Requested Visits Authorized [id number] Pending Review 1 1 Referral ID Status Reason Start Date Expiration Date V isits Requested Visits Authorized [id number] Authorized 12/02/2023 12/01/2024 1 1 Specialty Diagnoses / Procedures Referred By Contronny t Referred To Contact Diagnoses Hypogammaglobulinemia (HCC) Procedures CONSULT TO HEMATOLOGY/ONCOLOGY OFFICE/OUTPATIENT [facility] 60 MINUTES Jean Sylvester APRN.[employer] [address] [place] [address] Referral ID Status Reason Start Date Expiration Date Visits Requested Visits Authorized [id number] Authorized PCP Requested Referral 03/09/2025 1 1 [...] or prosecute any alcohol or drug abuse patient.[facility]In the event this information is protected by the Federal Confidentiality of Alcohol and Drug Abuse Patient Records regulations: The Federal rules restrict any use of the information to criminally investigate or prosecute any alcohol or drug abuse patient.[facility] HospitalIn the event this information is protected by the Federal Confidentiality of Alcohol and Drug Abuse Patient Records regulations: The Federal rules restrict any use of the information to criminally investigate or prosecute any alcohol or drug abuse patient.[facility] HospitalIn the event this information is protected by the Federal Confidentiality of Alcohol and Drug Abuse Patient Records regulations: The Federal rules restrict any use of the information to criminally investigate or prosecute any alcohol or drug abuse patient.[facility] HospitalIn the event this information is protected by the Federal Confidentiality of Alcohol and Drug Abuse Patient Records regulations: The Federal rules restrict any use of the information to criminally investigate or prosecute any alcohol or drug abuse patient.[facility] HospitalIn the event this information is protected by the Federal Confidentiality of Alcohol and Drug Abuse Patient Records regulations: The Federal rules restrict any use of the information to criminally investigate or prosecute any alcohol or drug abuse patient.[facility] HospitalIn the event this information is protected by the Federal Confidentiality of Alcohol and Drug Abuse Patient Records regulations: The Federal rules restrict any use of the information to criminally investigate or prosecute any alcohol or drug abuse patient.[facility] HospitalIn the event this information is protected by the Federal Confidentiality of Alcohol and Drug Abuse Patient Records regulations: The Federal rules restrict any use of the information to criminally investigate or prosecute any alcohol or drug abuse patient.[facility] HospitalIn the event this information is protected by the Federal Confidentiality of Alcohol and Drug Abuse Patient Records regulations: The Federal rules restrict any use of the information to criminally investigate or prosecute any alcohol or drug abuse patient.[facility] HospitalIn the event this information is protected by the Federal Confidentiality of Alcohol and Drug Abuse Patient Records regulations: The Federal rules restrict any use of the information to criminally investigate or prosecute any alcohol or drug abuse patient.[facility] HospitalIn the event this information is protected by the Federal Confidentiality of Alcohol and Drug Abuse Patient Records regulations: The Federal rules restrict any use of the information to criminally investigate or prosecute any alcohol or drug abuse patient.[facility] HospitalIn the event this information is protected by the Federal Confidentiality of Alcohol and Drug Abuse Patient Records regulations: The Federal rules restrict any use of the information to criminally investigate or prosecute any alcohol or drug abuse patient.[facility] HospitalIn the event this information is protected by the Federal Confidentiality of Alcohol and Drug Abuse Patient Records regulations: The Federal rules restrict any use of the information to criminally investigate or prosecute any alcohol or drug abuse patient.[facility] HospitalIn the event this information is protected by the Federal Confidentiality of Alcohol and Drug Abuse Patient Records regulations: The Federal rules restrict any use of the information to criminally investigate or prosecute any alcohol or drug abuse patient.[facility] HospitalIn the event this information is protected by the Federal Confidentiality of Alcohol and Drug Abuse Patient Records regulations: The Federal rules restrict any use of the information to criminally investigate or prosecute any alcohol or drug abuse patient.[facility] HospitalIn the event this information is protected by the Federal Confidentiality of Alcohol and Drug Abuse Patient Records regulations: The Federal rules restrict any use of the information to criminally investigate or prosecute any alcohol or drug abuse patient.[facility] HospitalIn the event this information is protected by the Federal Confidentiality of Alcohol and Drug Abuse Patient Records regulations: The Federal rules restrict any use of the information to criminally investigate or prosecute any alcohol or drug abuse patient.[facility] HospitalIn the event this information is protected by the Federal Confidentiality of Alcohol and Drug Abuse Patient Records regulations: The Federal rules restrict any use of the information to criminally investigate or prosecute any alcohol or drug abuse patient.[facility] HospitalIn the event this information is protected by the Federal Confidentiality of Alcohol and Drug Abuse Patient Records regulations: The Federal rules restrict any use of the information to criminally investigate or prosecute any alcohol or drug abuse patient.[facility] HospitalIn the event this information is protected by the Federal Confidentiality of Alcohol and Drug Abuse Patient Records regulations: The Federal rules restrict any use of the information to criminally investigate or prosecute any alcohol or drug abuse patient.[facility] HospitalIn the event this information is protected by the Federal Confidentiality of Alcohol and Drug Abuse Patient Records regulations: The Federal rules restrict any use of the information to criminally investigate or prosecute any alcohol or drug abuse patient.[facility] HospitalIn the event this information is protected by the Federal Confidentiality of Alcohol and Drug Abuse Patient Records regulations: The Federal rules restrict any use of the information to criminally investigate or prosecute any alcohol or drug abuse patient.[facility] HospitalIn the event this information is protected by the Federal Confidentiality of Alcohol and Drug Abuse Patient Records regulations: The Federal rules restrict any use of the information to criminally investigate or prosecute any alcohol or drug abuse patient.[facility] HospitalIn the event this information is protected by the Federal Confidentiality of Alcohol and Drug Abuse Patient Records regulations: The Federal rules restrict any use of the information to criminally investigate or prosecute any alcohol or drug abuse patient.[facility] HospitalIn the event this information is protected by the Federal Confidentiality of Alcohol and Drug Abuse Patient Records regulations: The Federal rules restrict any use of the information to criminally investigate or prosecute any alcohol or drug abuse patient.[facility] HospitalIn the event this information is protected by the Federal Confidentiality of Alcohol and Drug Abuse Patient Records regulations: The Federal rules restrict any use of the information to criminally investigate or prosecute any alcohol or drug abuse patient.[facility] HospitalIn the event this information is protected by the Federal Confidentiality of Alcohol and Drug Abuse Patient Records regulations: The Federal rules restrict any use of the information to criminally investigate or prosecute any alcohol or drug abuse patient.[facility] HospitalIn the event this information is protected by the Federal Confidentiality of Alcohol and Drug Abuse Patient Records regulations: The Federal rules restrict any use of the information to criminally investigate or prosecute any alcohol or drug abuse patient.[facility] HospitalIn the event this information is protected by the Federal Confidentiality of Alcohol and Drug Abuse Patient Records regulations: The Federal rules restrict any use of the information to criminally investigate or prosecute any alcohol or drug abuse patient.[facility] HospitalIn the event this information is protected by the Federal Confidentiality of Alcohol and Drug Abuse Patient Records regulations: The Federal rules restrict any use of the information to criminally investigate or prosecute any alcohol or drug abuse patient.[facility] HospitalIn the event this information is protected by the Federal Confidentiality of Alcohol and Drug Abuse Patient Records regulations: The Federal rules restrict any use of the information to criminally investigate or prosecute any alcohol or drug abuse patient.[facility] HospitalIn the event this information is protected by the Federal Confidentiality of Alcohol and Drug Abuse Patient Records regulations: The Federal rules restrict any use of the information to criminally investigate or prosecute any alcohol or drug abuse patient.[facility] HospitalIn the event this information is protected by the Federal Confidentiality of Alcohol and Drug Abuse Patient Records regulations: The Federal rules restrict any use of the information to criminally investigate or prosecute any alcohol or drug abuse patient.[facility] HospitalIn the event this information is protected by the Federal Confidentiality of Alcohol and Drug Abuse Patient Records regulations: The Federal rules restrict any use of the information to criminally investigate or prosecute any alcohol or drug abuse patient.[facility] HospitalIn the event this information is protected by the Federal Confidentiality of Alcohol and Drug Abuse Patient Records regulations: The Federal rules restrict any use of the information to criminally investigate or prosecute any alcohol or drug abuse patient.[facility] HospitalIn the event this information is protected by the Federal Confidentiality of Alcohol and Drug Abuse Patient Records regulations: The Federal rules restrict any use of the information to criminally investigate or prosecute any alcohol or drug abuse patient.[facility] HospitalIn the event this information is protected by the Federal Confidentiality of Alcohol and Drug Abuse Patient Records regulations: The Federal rules restrict any use of the information to criminally investigate or prosecute any alcohol or drug abuse patient.[facility] Reason for Visit (unrecogniz ed section [...] IMAG W/I&R FIBROSCAN Self Eloisa [phone] [id number] Referral ID Status Reason Start Date Expiration Date Visits Re quested Visits Authorized [id number] Closed 09/26/2023 04/21/2024 1 1 Reason Comments Established Patient Autoimmune hepatitis Specialty Diagnoses / Procedures Referred By Contact Referred To Contact Gastroenterology / GASTROENTEROLOGY Diagnoses Autoimmune hepatitis autoimmune hepititis Procedures OFFICE/OUTPATIENT ESTABLISHED MOD MDM 30 MIN EST DDI PATIENT Self Francisco Sanchez MD [address] [place] [address] Referral ID Status Reason Start Date Expiration Date Visits Re quested Visits Authorized [id number] Closed 09/26/2023 04/21/2024 1 1 Reason Onset Date Comments Refill Request 11/05/2023 Reason Comments Insurance Authorization Reason Onset Date Comments Refill Request 11/26/2023 Reason Onset Date Comments Refill Request 12/25/2023 Reason Comments Yearly Exam Labs prior Reason Comments Results Reason Comments New Patient Specialty Diagnoses / Procedures Referred By Israel clements Referred To Contact Diagnoses Hypogammaglobulinemia (HCC) Procedures CONSULT TO HEMATOLOGY/ONCOLOGY OFFICE/OUTPATIENT NEW HIGH MDM 60 MINUTES Jean Sylvester APRN.SALES ENGINE[employer] [address] [place] [address] Referral ID Status Reason Start Date Expiration Date V isits Requested Visits Authorized [id number] Closed PCP Requested Referral 03/09/2024 03/09/2025 1 [...] Care Teams (unrecognized sec tion and content) Carpenter Repair Relationship Specialty Start Date End Date Molly Kearns MD [address] [place], [place] [address] PCP - General Internal Medicine 03/06/10 Carpenter Repair Relationship Specialty Start Date End Date Molly Kearns MD [address] [place], [place] [id number] PCP - General Internal Medicine 03/06/10 Carpenter Repair Relationship Specialty Start Date End Date Molly Kearns MD [address] [place], [place] [address] PCP - General Internal Medicine 03/06/10 Carpenter Repair Relationship Specialty Start Date End Date Molly Kearns MD [address] [place] [address] PCP - General Internal Medicine 03/06/10 Team Status: Active Member Role Status Dates Dr. Molly Kerans MD Family Provider Active Dr. Molly Kearns MD Primary Care Provider Active Team Status: Active Member Role Status Dates Dr. Molly Kearns MD Primary Care Provider Active Dr. Noe Barbour DO Emergency Provider Active Dr. Darirus Rubalcava MD Admit Provider, A ttending Provider, [...] Other Provider Active Dr. Ranjith Sarmiento , Attending Provider Active Team Status: Active Member [...] Dr. Mao Yadav MD Other Provider Active Carpenter Repair Relationship Specialty Start Date End Date Molly Kearns MD [address] [place], [place] [address] PCP - General Internal Medicine 03/06/10 Carpenter Repair Relationship Specialty Start Date End Date Molly Kearns MD [address] [place], [place] [address] PCP - General Internal Medicine 03/06/10 Carpenter Repair Relationship Specialty Start Date End Date Molly Kearns MD [address] [place], [place] [address] PCP - General Internal Medicine 03/06/10 Carpenter Repair Relationship Specialty Start Date End Date Molly Kearns MD [address] [facility], [place] [address] PCP - General Internal Medicine 03/06/10 Carpenter Repair Relationship Specialty Start Date End Date Molly Kearns MD [address] [place], [place] [address] PCP - General Internal Medicine 03/06/10 Carpenter Repair Relationship Specialty Start Date End Date Molly Kearns MD [address] [place], [place] [id number] PCP - General Internal Medicine 03/06/10 Team [...] Sarmiento DO Attending Provider, Referring Provider Active Carpenter Repair Relationship Specialty Start Date End Date Molly Kearns MD [address] [place], [place] [address] PCP - General Internal Medicine 03/06/10 Ebenezer Arias [address] [address] Referring Internal Medicine 05/07/23 Carpenter Repair Relationship Specialty Start Date End Date Molly Kearns MD [address] [place] [address] PCP - General Internal Medicine 03/06/10 Ebenezer Arias [address] [place], [place] [address] Referring Internal Medicine 05/07/23 Carpenter Repair Relationship Specialty Start Date End Date Molly Kearns MD [address] [place] [address] PCP - General Internal Medicine 03/06/10 Ebenezer Arias [address] [place] [address] Referring Internal Medicine 05/07/23 Carpenter Repair Relationship Specialty Start Date End Date Molly Kearns MD [address] [place] [address] PCP - General Internal Medicine 03/06/10 Ebenezer Arias [address] [place] [address] Referring Internal Medicine 05/07/23 Carpenter Repair Relationship Specialty Start Date End Date Molly eKarns MD [address] [place] [address] PCP - General Internal Medicine 03/06/10 Ebenezer Arias [address] [facility] [address] [place] [address] Referring Internal Medicine 05/07/23 Carpenter Repair Relationship Specialty Start Date End Date Molly Kearns MD [address] [place] [address] PCP - General Internal Medicine 03/06/10 Ebenezer Arias [address] [place] [address] Referring Internal Medicine 05/07/23 Carpenter Repair Relationship Specialty Start Date End Date Molly Kearns MD [address] [place] [address] PCP - General Internal Medicine 03/06/10 Ebenezer Arias [address] [place] [address] Referring Internal Medicine 05/07/23 Carpenter Repair Relationship Specialty Start Date End Date Molly Kearns MD [address] [place] [address] PCP - General Internal Medicine 03/06/10 Ebenezer Arias [address] [place] [address] Referring Internal Medicine 05/07/23 Carpenter Repair Relationship Specialty Start Date End Date Molly Kearns MD [address] [place] [address] PCP - General Internal Medicine 03/06/10 Ebenezer Arias [address] [place] [address] Referring Internal Medicine 05/07/23 Carpenter Repair Relationship Specialty Start Date End Date Molly Kearns MD [address] [facility], [place] [address] PCP - General Internal Medicine 03/06/10 Ebenezer Arias [address] [place] [address] Referring Internal Medicine 05/07/23 Carpenter Repair Relationship Specialty Start Date End Date Molly Kearns MD [address] [place] [address] PCP - General Internal Medicine 03/06/10 Ebenezer Arias [address] [facility] [address] [place] [address] Referring Internal Medicine 05/07/23 Carpenter Repair Relationship Specialty Start Date End Date Molly Kearns MD [address] [place] [address] PCP - General Internal Medicine 03/06/10 Ebenezer Arias [address] [place] [address] Referring Internal Medicine 05/07/23 Carpenter Repair Relationship Specialty Start Date End Date Molly Kearns MD [address] [place] [address] PCP - General Internal Medicine 03/06/10 Ebenezer Arias [address] [facility] [address] [place] [address] Referring Internal Medicine 05/07/23 Carpenter Repair Relationship Specialty Start Date End Date Molly Kearns MD [address] [place] [address] PCP - General Internal Medicine 03/06/10 Ebenezer rAias [address] [facility] [address] [place] [address] Referring Internal Medicine 05/07/23 Bety Bajwa, INTAKE MANAGER.GILL TENDER [address] [place] [address] Fabric Worker Internal Medicine 03/30/24 Jean Sylvester APRN.[employer]AL[employer] [address] [facility] [place] [address] Fabric Worker Internal Medicine 03/30/24 Carpenter Repair Relationship Specialty Start Date End Date Molly Kearns MD [address] [place] [address] PCP - General Internal Medicine 03/06/10 Ebenezer Arias [address] [place] [address] Referring Internal Medicine 05/07/23 Bety Bajwa, INTAKE MANAGER.GILL TENDER [address] [place] [address] Fabric Worker Internal Medicine 03/30/24 Jean Sylvester INTAKE MANAGER.SALES ENG[employer] [address] [place] [address] [facility] Internal Medicine 03/30/24 Carpenter Repair Relationship Specialty Start Date End Date Molly Kearns MD [address] [place] [address] PCP - General Internal Medicine 03/06/10 Ebenezer Arias [address] [facility] [address] [place] [address] Referring Internal Medicine 05/07/23 Bety Bajwa, INTAKE MANAGER.GILL TENDER [address] [place] [address] Fabric Worker Internal Medicine 03/30/24 Jean Sylvester APRN.SALES ENG[employer] [address] [place] [address] Fabric Worker Internal Medicine 03/30/24 07/10/24 Carpenter Repair Relationship Specialty Start Date End Date Molly Kearns MD [address] [place] [address] PCP - General Internal Medicine 03/06/10 Ebenezer Arias [address] [facility] [address] [place] [address] Referring Internal Medicine 05/07/23 Bety Bajwa APRN.GILL TENDER [address] [place] [address] Fabric Worker Internal Medicine 03/30/24 Jean Sylvester APRN.SAL[employer] [address] [place] [address] Fabric Worker Internal Medicine 07/14/24 Carpenter Repair Relationship Specialty Start Date End Date Molly Kearns MD [address] [place] [address] PCP - General Internal Medicine 03/06/10 Ebenezer Arias [address] [facility] [address] [place] [address] Referring Internal Medicine 05/07/23 Jean Sylvester APRN.SALES [employer] [address] [place] [address] Fabric Worker Internal Medicine 07/14/24 Bety Bajwa APRN.GILL TENDER [address] [place] [address] Fabric Worker Internal Medicine 09/09/24 Carpenter Repair Relationship Specialty Start Date End Date Molly Kearns MD [address] [place] [address] PCP - General Internal Medicine 03/06/10 Ebenezer Arias [address] [place] [address] Referring Internal Medicine 05/07/23 Jean Sylvester APRN.SALES ENG[employer] [address] [place] [address] Fabric Worker Internal Medicine 07/14/24 Bety Bajwa APRN.GILL TENDER [address] [place] [address] Fabric Worker Internal Medicine 09/09/24 Carpenter Repair Relationship Specialty Start Date End Date Molly Kearns MD [address] [place] [address] PCP - General Internal Medicine 03/06/10 Ebenezer Arias [address] [facility] [address] [place] [address] Referring Internal Medicine 05/07/23 Jean Sylvester APRN.SALES ENG[employer]ER [employer] [address] [place] [address] Fabric Worker Internal Medicine 07/14/24 Bety Bajwa APRN.GILL TENDER [address] [place] [address] Fabric Worker Internal Medicine 09/09/24 Carpenter Repair Relationship Specialty Start Date End Date Molly Kearns MD [address] [place] [address] PCP - General Internal Medicine 03/06/10 Ebenezer Arias [address], [place] [address] Referring Internal Medicine 05/07/23 Jean Sylvester APRN.SALES ENG[employer]ER [employer] [address] [place] [address] Fabric Worker Internal Medicine 07/14/24 Bety Bajwa APRN.GILL TENDER [address] [place] [address] [facility] Internal Medicine 09/09/24 Carpenter Repair Relationship Specialty Start Date End Date Molly Kearns MD [address] [facility] [place] [address] PCP - General Internal Medicine 03/06/10 Ebenezer Arias [address] [place] [address] Referring Internal Medicine 05/07/23 Jean Sylvester APRN.SALES ENGINEER [employer] [address] [facility] [place] [address] [facility] Internal Medicine 07/14/24 Bety Bajwa APRN.GILL TENDER [address] [facility] [place] [address] [facility] Internal Medicine 09/09/24 Goals (unrecognized section and content) Goals may be documented in a n alternate sectionGoals may be documented in an alternate section (unrecognized sect ion and content) No Status Records FoundNo Status Records Found INFORMATION SOURCE (unrecogn ized section and content) DATE CREATED AUTHOR 03/01/2024 [facility] DATE CREATED AUTHOR AUTHOR'S MARY GARCIA 02/24/2025 [facility] FOR RECORDS PERTAINING TO PATIENTS WHO ARE [...] BE BASED ON THE PRIMARY CLINICAL RECORDS. [employer] [facility]. provides no warranty or guarantee of the accuracy or completeness of information in this document.
[2025-03-24 08:36] LABS: Anion Gap 14 (5-15); BUN 17 mg/dL (4-19); BUN/Creat Ratio 18.8 RATIO (10-20); Calcium,Total 10.0 mg/dL (7.6-11.0); Carbon Dioxide 22.4 mmol/L (21.0-32.0); Chloride 104 mmol/L (98-108); Glucose 182 mg/dL (70-99); Potassium 4.1 mmol/L (3.3-5.1)
== END | disposition home or self-care (01) ==
LOC: LAB 06:52
PROVIDERS: PCP Internal Medicine; Referring Provider Urology; Visit Provider Urology
DX: Z01.812 Encounter for preprocedural laboratory examination (principal)
CPT/HCPCS: 36415; 80048

== ENCOUNTER 2025-03-31 05:56 | Day surgery (SDC) | payer BC, SELFPAY ==
[2025-03-31] VITALS (11 sets, daily range): BP systolic 166–204; BP diastolic 71–83; PULSE 72–90; RESP 16–18; TEMP 36.4–37.7; O2SAT 93–97; BMI 26.1
--- NOTE | 2025-03-31 06:10 | RAD_ITS ---
PROCEDURE: ABDOMEN SINGLE VIEW 03/31/2025 REASON FOR EXAM: PREOP Right ureteral calculi. TECHNIQUE: Procedure Code: RADABD Modality: DX Procedure: ABDOMEN SINGLE VIEW COMPARISON: March 09, 2025 FINDINGS: Nonspecific, nonobstructive bowel-gas pattern with mild colonic stool burden. Double-J ureteral stent on the right. Probable bilateral nephrolithiasis the largest on the right measuring 3 mm and on the left 4.1 mm. RAD/Abdomen Single View IMPRESSION: Right double-J ureteral stent with probable bilateral nephrolithiasis. Reading Location: [id number]
--- OUTSIDE RECORDS SUMMARY | 2025-03-31 06:14 | XMS RPT_ITS | CCD ---
Author Organization [facility] Care Team Providers Care Cab Starter Name Role Phone Molly Kearns MD Primary Care Provider Dr. Molly Kearns Primary Care Provider Dr. Noe Barbour Emergency Provider Dr. Darrius Rubalcava Admit Provider Dr. Darrius Rubalcava Attending Provider [phone] Darrius Rubalcava Other Provider Dr. Bryson Merritt Attending Provider [phone] Friend, Dr. Kasper Attending Provider Dr. Mao [...] Talampas, Molly D Primary Care Unavailable Bajwa CMM OPERATOR.ANTHROPOLOGY FACULTY MEMBER, Bety Unavailable Gloria CMM OPERATOR.GRINDER GEAR, Jean Unavailable Gloria CMM OPERATOR.GRINDER GEAR, Jean Unavailable Gloria CMM OPERATOR.GRINDER GEAR, Jean Unavailable Gloria CMM OPERATOR.GRINDER GEAR, Jean Unavailable Bajwa CMM OPERATOR.ANTHROPOLOGY FACULTY MEMBER, Bety Unavailable TALAMPAS, MOLLY D Referring Unavailable [...] crowe [Other] Propensity to adverse reactions 5 [facility] Work Phone: (3 sources) Clemastine Drug Allergy 1 [facility] (3 sources) Pseudoephedrine Drug Allergy 1 [facility] (1 source) Clemastine Drug Allergy 4 [facility]ository (1 source) Pseudoephedrine Drug Allergy 4 [facility] Medications Current Medications Medication Drug [...] m outh once daily. Flash Glucose Scanning Imboden (Freestyle Brenda 14 Day Imboden) mis (1 source) Start: 03-18-2023 Flash Glucose Scanning Imboden (Freestyle Brenda 14 Day Imboden) muscogee Active 0 .ROUTE March 18, 2023 12:00am [...] on above: Take one(1) tablet d aily. [place] 0-Cly-Wrm-Fish Oil (Fish Oil) 1,200 (144-216) mg capsule (3 sources) Start: 10-18-2022 [place] 3-Dha-Ep a-Fish Oil (Fish Oil) 1,200 (144-216) mg capsule Active CAP PO October 17, 2022 11:00pm Start: 10-18-2022 [place] 3-Dha-Ep a-Fish Oil (Fish Oil) 1,200 (144-216) [...] (2 sources) Patient encounter status; Translations: [Other fdc (current) drug therapy] Episodic Other aftercare (2 sources) Long-term current use of drug therapy; Translations: [Other fdc (current) drug therapy] 12-02-2023 Episodic Other inflammatory [...] 08-31-2015 Episodic Other aftercare (1 source) Other supervisor long goods (current) drug therapy; Translations: [Encounter for long-term current use of medication] Onset: 03-06-2024 Episodic Other aftercare (2 sources) penitentiary (current) use of insulin; Translations: [Type 2 diabetes mellitus with hyperglycemia, with long-term current use of insulin (HCC)] Onset: 03-06-2024 Episodic Other nutritional; endocrine; and metabolic disorders (20 sources) Obesity; Translations: [Obesity, unspecified] Resolved: 03-23-2015 03-23-2015 Chronic Residual codes; unclassified (20 sources) Sleep apnea; Translations: [Sleep apnea, unspecified] Resolved: 09-11-2016 09-11-2016 Chronic Results Test Name Value Interpretation Reference Range Facility [facility] 01-18-2025 [facility] Telephone (INTMWS) LONNIE GAVIRIA ([id number]) 1965 M Date Time Provider Department 01/18/25 [...] kidney stones [N20.0] Order(s):CONSULT TO NON-CCF FACILITY [[id number]] Order #: [id number] Prescriptions as of 01/20/2025 - insulin lispro [...] Encounter Status:Closed by GIULIANA HARDIN on 01/20/25 [facility] CNOVon 01-13-2025 [facility]OV Office Visit (INTMWS) LONNIE GAVIRIA ([id number]) 1965 M Date Time Provider Department 01/13/25 [...] Sister o (more content not included)... [facility] Nurse Visit (FAMPWS) LONNIE GAVIRIA ([id number]) 1965 M Date Time Provider Department 01/01/25 3:00 PM [facility] today, we recorded the [...] 6MO-64YR, TRIVALENT (AFLURIA, FLUARIX, FLULAVAL, FLUVIRIN, FLUZONE) [[id number]] Order #: [id number] Prescriptions as of 01/01/2025 - gemfibrozil (LOPID) [...] Encounter Status:Closed by NINOSKA ODONNELL on 01/01/25 [facility] CNPRiya 12-28-2024 [facility] Telephone (INTMWS) LONNIE GAVIRIA ([id number]) 1965 M Date Time Provider Department 12/28/24 [...] Fully Assessed Reason for Visit: Patient Question [2152] Prescriptions as of 12/28/2024 - gemfibrozil (LOPID) [...] by GIULIANA HARDIN on 12/28/24 Normal [facility] CBC panel Auto (Bld)on 12-23 Erythrocyte distribution width (RBC) [Ratio] 12.0 % Normal 11.5-15.0 [facility] Comment on above: Order Comment: Speci men Type: BLOOD SPECIMENOrdering Facility: [facility] Address: [address] [place] [address] Performed By: #### 5 8410-2 ####[facility] [id number] [address] [place] Hematocrit (Bld) [Volume fraction] 44.2 % Normal 39.0-51.0 [facility] Comment on above: Order Comment: Speci men Type: BLOOD SPECIMENOrdering Facility: [facility] Address: [address] [place] [address] Performed By: #### 5 8410-2 ####[facility] [id number] [place] [address] [place] Hemoglobin (Bld) [Mass/Vol] 15.9 g/dL Normal 13.0-17.0 [facility] Comment on above: Order Comment: Speci men Type: BLOOD SPECIMENOrdering Facility: [facility] Address: [address] [place] [address] Performed By: #### 5 8410-2 ####[facility] [id number] [place] [address] [place] MCH (RBC) [Entitic mass] 31.7 pg Normal 26.0-34.0 [facility] Comment on above: Order Comment: Speci men Type: BLOOD SPECIMENOrdering Facility: [facility] Address: [address] [place] [address] Performed By: #### 5 8410-2 ####[facility] CHUCKMCALESTERNCSHONDA [id number] [place] [address] [place] MCHC (RBC) [Mass/Vol] 36.0 g/dL Normal 30.5-36.0 [facility] Comment on above: Order Comment: Speci men Type: BLOOD SPECIMENOrdering Facility: [facility] Address: [address] [place] [address] Performed By: #### 5 8410-2 ####[facility] [id number] [place] [address] [place] MCV (RBC) [Entitic vol] 88.0 fL Normal 80.0-100.0 [facility] Comment on above: Order Comment: Speci men Type: BLOOD SPECIMENOrdering Facility: [facility] Address: [address] [place] [address] Performed By: #### 5 8410-2 ####[facility]ERNCPHILLIPA [id number] [place] [address] [place] Nucleated RBC (Bld) [#/Vol] 10*3/uL Normal <0.01 [facility] Comment on above: Order Comment: Speci men Type: BLOOD SPECIMENOrdering Facility: [facility] Address: [address] [place], [place] [address] Performed By: #### 5 8410-2 ####[facility] [id number] [place] [address] [place] Platelet mean volume (Bld) [Entitic vol] 11.4 fL Normal 9.0-12.7 [facility] Comment on above: Order Comment: Speci men Type: BLOOD SPECIMENOrdering Facility: [facility] Address: [address] [place] [address] Performed By: #### 5 8410-2 ####[facility] CHUCKWNCLIA [id number] [place] [address] [place] Platelets (Bld) [#/Vol] 198 10*3/uL Normal 150-400 [facility] Comment on above: Order Comment: Speci men Type: BLOOD SPECIMENOrdering Facility: [facility] Address: [address] [place], [place] [address] Performed By: #### 5 8410-2 ####[facility] [id number] [place] [address] [place] [facility] RBC (Bld) [#/Vol] 5.02 10*6/uL Normal 4.20-6.00 [facility] Comment on above: Order Comment: Speci men Type: BLOOD SPECIMENOrdering Facility: [facility] Address: [address] [place], [place] [address] Performed By: #### 5 8410-2 ####[facility] [id number] [place] [address] [place] WBC (Bld) [#/Vol] 5.54 10*3/uL Normal 3.70-11.00 [facility] Comment on above: Order Comment: Speci men Type: BLOOD SPECIMENOrdering Facility: [facility] Address: [address] [place], [place] [address] Performed By: #### 5 8410-2 ####[facility]CL[facility] [id number] [place] [address] [place] [facility] Comprehensive metabolic 2000 panelon 12-23-2024 Albumin [Mass/Vol] 4.7 g/dL Normal 3.9-4.9 [facility] Comment on above: Order Comment: Speci men Type: BLOOD SPECIMENOrdering Facility: [facility] Address: [address] [place] [address] Performed By: #### 2 4323-8 ####[facility] MILLTOWNCLIA [id number] [place] [address] [place] ALP [Catalytic activity/Vol] 59 U/L Normal 38-113 [facility] Comment on above: Order Comment: Speci men Type: BLOOD SPECIMENOrdering Facility: [facility] Address: [address] [place] [address] Performed By: #### 2 4323-8 ####[facility] MILLTOWNCLIA [id number] [place] [address] [place] ALT [Catalytic activity/Vol] 15 U/L Normal 10-54 [facility] Comment on above: Order Comment: Speci men Type: BLOOD SPECIMENOrdering Facility: [facility] Address: [address] [place] [address] Performed By: #### 2 4323-8 ####[facility] ERWNCLIA [id number] [place] [address] [place] Anion gap [Moles/Vol] 9 mmol/L Normal 8-15 [facility] Comment on above: Order Comment: Speci men Type: BLOOD SPECIMENOrdering Facility: [facility] Address: [address] [place] [address] Performed By: #### 2 4323-8 ####[facility]CL[facility] [id number] [place] [address] [place] AST [Catalytic activity/Vol] 20 U/L Normal 14-40 [facility] Comment on above: Order Comment: Speci men Type: BLOOD SPECIMENOrdering Facility: [facility] Address: [address] [place] [address] Performed By: #### 2 4323-8 ####[facility] MILLTOWNCLIA [id number] [place] [address] [place] Bilirubin [Mass/Vol] 1.1 mg/dL Normal 0.2-1.3 [facility] Comment on above: Order Comment: Speci men Type: BLOOD SPECIMENOrdering Facility: [facility] Address: [address] [place] [address] Performed By: #### 2 4323-8 ####[facility] CHUCKWNCLIA [id number] [place] [address] [place] Calcium [Mass/Vol] 9.7 mg/dL Normal 8.5-10.2 [facility] Comment on above: Order Comment: Speci men Type: BLOOD SPECIMENOrdering Facility: [facility] Address: [address] [place] [address] Performed By: #### 2 4323-8 ####[facility]CLIA [id number] [place] [address] [place] Chloride [Moles/Vol] 104 mmol/L Normal 98-107 [facility] Comment on above: Order Comment: Speci men Type: BLOOD SPECIMENOrdering Facility: [facility] Address: [address] [place] [address] Performed By: #### 2 4323-8 ####[facility]CLIA [id number] [place] [address] [place] CO2 [Moles/Vol] 25 mmol/L Normal 22-30 [facility] Comment on above: Order Comment: Speci men Type: BLOOD SPECIMENOrdering Facility: [facility] Address: [address] [place] [address] Performed By: #### 2 4323-8 ####[facility]ERNCLIA [id number] [place] [address] [place] Creatinine [Mass/Vol] 0.96 mg/dL Normal 0.73-1.22 [facility] Comment on above: Order Comment: Speci men Type: BLOOD SPECIMENOrdering Facility: [facility] Address: [address] [place] [address] Performed By: #### 2 4323-8 ####[facility] ERWNCLI [id number] [place] [address] [place] eGFRcr SerPlBld CKD-EPI 2020 92 mL/min/1.73m??? Normal >=60 [facility] Comment on above: Order Comment: Jairon leigh Type: BLOOD SPECIMENOrdering Facility: [facility] Address: [address] [place] [address] Result Comment: Lien mated Glomerular Filtration Rate [...] actual GFR. Performed By: #### 2 4323-8 ####[facility] [id number] [place] [address] [place] Glucose [Mass/Vol] 149 mg/dL High 74-99 [facility] Comment on above: Order Comment: Jairon leigh Type: BLOOD SPECIMENOrdering Facility: [facility] Address: [address] [place] [address] Result Comment: The [place] Diabetes Association (ADA) provides guidance for cutoff [...] Standards of Medical Care in Diabetes 2016, [place] Diabetes Association. Diabetes Care. 2016.39(Suppl 1). Performed By: #### 2 4323-8 ####[facility]ENTERNCLIA [id number] [place] [address] [place] Potassium [Moles/Vol] 4.6 mmol/L Normal 3.7-5.1 [facility] Comment on above: Order Comment: Speci men Type: BLOOD SPECIMENOrdering Facility: [facility] Address: [address] [place] [address] Performed By: #### 2 4323-8 ####[facility] MILLTOWNCLIA [id number] [place] [address] [place] Protein [Mass/Vol] 6.8 g/dL Normal 6.3-8.0 [facility] Comment on above: Order Comment: Speci men Type: BLOOD SPECIMENOrdering Facility: [facility] Address: [address] [place] [address] Performed By: #### 2 4323-8 ####[facility] MILLWNCLIA [id number] [place] [address] [place] Sodium [Moles/Vol] 138 mmol/L Normal 136-144 [facility] Comment on above: Order Comment: Speci men Type: BLOOD SPECIMENOrdering Facility: [facility] Address: [address] [place] [address] Performed By: #### 2 4323-8 ####[facility] MILLVIKASHWNCLIA [id number] [place] [address] [place] Urea nitrogen [Mass/Vol] 17 mg/dL Normal 9-24 [facility] Comment on above: Order Comment: Speci men Type: BLOOD SPECIMENOrdering Facility: [facility] Address: [address] [place] [address] Performed By: #### 2 4323-8 ####[facility] MILLTOWNCLIA [id number] [place] [address] [place] Ferritin SerPl-mCncon 2024 Ferritin [Mass/Vol] 364.0 ng/mL Normal 30.3-565.7 [facility] Comment on above: Order Comment: Jairon leigh Type: BLOOD SPECIMENOrdering Facility: [facility] Address: [address] [place] [address] Performed By: #### 5 0190-8, 2276-4 ####[facility] LABCLIA [id number] [address]#### 31129-5 ####[facility] LABCLIA [id number] [address] [id number] [place], [place] [address] [place] [address] HbA1c (Bld)on 12-23-2024 Average glucose Estimated from glycated hemoglobin (Bld) [Mass/Vol] 128 mg/dL Normal [facility] Comment on above: Order Comment: Jairon leigh Type: BLOOD SPECIMENOrdering Facility: [facility] Address: [address] [place] [address] Result Comment: eAG: (Estimated average glucose) is a calculated value from HgbA1c and is home furnishings sales representative of the average blood glucose level in the last 2-3 month period. Performed By: #### 5 5454-3 ####[facility] LABIA [id number] [address] STATES [facility] HbA1c (Bld) [Mass fraction] 6.1 % High 4.3-5.6 [facility] Comment on above: Order Comment: Jairon [facility] Type: BLOOD SPECIMENOrdering Facility: [facility] Address: [address] [place] [address] Result Comment: Amer ican Diabetes Association guidelines indicate that patients with HgbA1c in the range 5.7-6.4% are at increased risk for development of diabetes, and intervention by lifestyle modification may be beneficial. HgbA1c greater or equal to 6.5% is considered diagnostic of diabetes. Performed By: #### 5 5454-3 ####[facility] LABCLIA [id number] [facility] [place] [id number] [place] Iron and Iron binding capaci ty panelon 12-23-2024 Iron [Mass/Vol] 173 ug/dL Normal 41-186 [facility] Comment on above: Order Comment: Speci men Type: BLOOD SPECIMENOrdering Facility: [facility] Address: [address] [place] [address] Performed By: #### 5 0190-8, 2275- ####[facility] LABCLIA [id number] [place] [address] [place]#### 03261-3 ####[facility] LABCLIA [id number] [place] [address] [place] [facility]IC[facility]OU[facility] [id number] [place] [address] [place] Iron binding capacity [Mass/Vol] 411 ug/dL High 232-386 [facility] Comment on above: Order Comment: Speci men Type: BLOOD SPECIMENOrdering Facility: [facility] Address: [address] [place] [address] Performed By: #### 5 0190-8, 2275-07 ####[facility] LABCLIA [id number] [place] [address] [place]#### 15183-0 ####[facility] LABCLIA [id number] [address], [facility] [place] [facility] [id number] [place] [address] [place] Iron/TIBC [Molar ratio] 42.1 % Normal 15.0-57.0 [facility] Comment on above: Order Comment: Speci men Type: BLOOD SPECIMENOrdering Facility: [facility] Address: [address] [place] [address] Performed By: #### 5 0190-8, 2275-07 ####[facility] LABCLIA [id number] [address], [place] [address] [place]#### 04990-9 ####[facility] LABCLIA [id number] [facility] [address], [facility] [place] [facility] [id number] [place] [address] [place] Lipid 1996 panelon 5 Cholesterol [Mass/Vol] 146 mg/dL Normal <200 [facility] Comment on above: Order Comment: Speci men Type: BLOOD SPECIMENOrdering Facility: [facility] Address: [address] [place] [address] Result Comment: <200 mg/dL, Desirable 200-239 mg/dL, Borderline high >239 mg/dL, High Performed By: #### 5 0190-8, 2275-07 ####[facility] LABCLIA [id number] [address], [place] [address] [place]#### 80026-5 ####[facility] LABCLIA [id number] [address], [address] STATES OF [facility] [id number] [place] [address] [place] Cholesterol in HDL [Mass/Vol] 30 mg/dL Low >39 [facility] Comment on above: Order Comment: Speci men Type: BLOOD SPECIMENOrdering Facility: [facility] Address: [address] [place] [address] Result Comment: 40-5 9 mg/dL, Acceptable >59 mg/dL, High: Negative risk factor for coronary heart disease <40 mg/dL, Low: Positive risk factor for coronary heart disease Performed By: #### 5 0190-8, 2275- ####[facility] LABCLIA [id number] [place] [address] [place]#### 48512-6 ####[facility] LABCLIA [id number] [address] [id number] [address] [place] Cholesterol in LDL [Mass/Vol] 88 mg/dL Normal <100 [facility] Comment on above: Order Comment: Speci men Type: BLOOD SPECIMENOrdering Facility: [facility] Address: [address] [place] [address] Result Comment: <100 mg/dL, Optimal 100-129 mg/dL, Near optimal/above optimal 130-159 mg/dL, Borderline high 160-189 mg/dL, High >189 mg/dL, Very high Secondary prevention optimal LDL Cholesterol levels are recommended to be <70 mg/dL LDL cholesterol is calculated using the Ward-NIH equation. Performed By: #### 5 0190-8, 2276-4 ####[facility] LABCLIA [id number] [address] [place] [address] [place]#### 80028-8 ####[facility] LABIA [id number] [address] [id number] [address] [place] Cholesterol in LDL/Cholesterol in HDL [Mass ratio] 2.93 {ratio} High <2.54 [facility] Comment on above: Order Comment: Alexanderrashid leigh Type: BLOOD SPECIMENOrdering Facility: [facility] Address: [address] [place] [address] Result Comment: Wiley hurst: 1. National Cholesterol Education Program ATP III Guideline At-A-Glance Quick Desk Reference: National Heart, Lung, and Blood [place]. National Institutes of Health. 2001: NIH Publication No. 01-3305. 2. An International Atherosclerosis Society position paper: global recommendations for the management of dyslipidemia: executive summary, Atherosclerosis. 2014: 232(2):410-413. Performed By: #### 5 0190-8, 2275- ####[facility] LABCLIA [id number] [facility] [address] [place] [address] [place]#### 66324-3 ####[facility] LABCLIA [id number] [facility] [address] [place] [address] [facility] [id number] [address] [place] Cholesterol in VLDL [Mass/Vol] 25 mg/dL Normal <30 [facility] Comment on above: Order Comment: Speci men Type: BLOOD SPECIMENOrdering Facility: [facility] Address: [address] [place] [address] Performed By: #### 5 0190-8, 2275-07 ####[facility] LABCLIA [id number] [facility]OS[facility]ALK [address], [address] [place]#### 43897-6 ####[facility] LABCLIA [id number] [facility] [address], [facility] [place] STATES [facility] [id number] [place] [address] [place] Cholesterol non HDL [Mass/Vol] 116 mg/dL Normal <130 [facility] Comment on above: Order Comment: Speci men Type: BLOOD SPECIMENOrdering Facility: [facility] Address: [address] [place] [address] Result Comment: <130 mg/dL, Optimal 130-159 mg/dL, Near optimal/above optimal 160-189 mg/dL, Borderline high 190-219 mg/dL, High >219 mg/dL, Very high Secondary prevention optimal non HDL Cholesterol levels are recommended to be <100 mg/dL Performed By: #### 5 0190-8, 2275- ####[facility] LABCLIA [id number] [address] [place] [address] [place]#### 19625-4 ####[facility] LABCLIA [id number] [address] [place] [address] [place] AMERICABUCYRUS COMMUNITY HOSPITALLIA [id number] [place] [address] [place] Cholesterol.total/Choles terol in HDL [Mass ratio] 4.87 {ratio} Normal <5.10 [facility] Comment on above: Order Comment: Speci men Type: BLOOD SPECIMENOrdering Facility: [facility] Address: [address] [place] [address] Performed By: #### 5 0190-8, 2275-07 ####[facility] LABCLIA [id number] [address] [place] [address] [place]#### 51849-0 ####[facility] LABCLIA [id number] [address] [place] [address] [place] [facility] [id number] [place] [address] [place] FASTING TIME 12 hrs Normal [facility] Comment on above: Order Comment: Speci men Type: BLOOD SPECIMENOrdering Facility: [facility] Address: [address] [place] [address] Performed By: #### 5 0190-8, 2275-07 ####[facility] LABCLIA [id number] [address] [place] [address] [place]#### 52766-2 ####[facility] LABCLIA [id number] [address] [place] [address] [place] AMERICAHEALTHMARK REG[facility] MEDICAL CENTERA [id number] [place] [address] [place] Triglyceride [Mass/Vol] 159 mg/dL High <150 [facility] Comment on above: Order Comment: Speci men Type: BLOOD SPECIMENOrdering Facility: [facility] Address: [address] [facility] [place] [address] Result Comment: <150 mg/dL, Normal 150-199 mg/dL, Borderline high 200-499 mg/dL, High >499 mg/dL, Very high Performed By: #### 5 0190-8, 2276-4 ####[facility] LABCLIA [id number] [address]#### 95[address]-0 ####[facility] LABIA [id number] [address] [id number] [place] [id number] [place] [address] CNPRiya 10-12-2024 [facility] Telephone (INTMWS) LONNIE GAVIRIA ([id number]) 1965 M Date Time Provider Department 10/12/24 MOLLY KEARNS INTWS During your visit today, we recorded the following information about you: Jewell Garnica LPN 10/12/2024 8:20 AM Signed Electronic PA reviewed and completed for Yippye 2 sensors. This was approved. Prior authorization approved Payer: Sanju Note from payer: SANTO Case: [id number], Status: Partially Approved, Coverage Starts on: 10/09/2024 12:00:00 AM, Coverage Ends on: 10/09/2025 12:00:00 AM. Approval Details Authorization number: [id number] Authorized from October 09, 2024 to October [...] To be filled at: e- [id number] [place] [address] - [address] [facility] [phone] 4605 Pharmacy notified. Sofi Rapp RN 10/15/2024 [...] know information from PA below. Authorization number: [id number] Authorized from October 09, 2024 to October [...] Encounter Status:Closed by JEWELL GARNICA on 10/12/24 [facility] Tele[facility] (INTMWS) LONNIE GAVIRIA ([id number]) 1965 M Date Time Provider Department 10/06/24 MOLLY KEARNS INTMWS During your visit today, we recorded the following information about you: Jewell Garnica LPN 10/06/2024 8:34 AM Signed Electronic PA rec'd for freestyle brenda sensors. Bel Barnes 10/09/2024 2:43 PM Signed Patient is checking on status. Please send Prior Authorization to [facility] if approved and notify patient. [phone] Craig Clark RN 10/10/2024 8:27 AM Signed Per med PA, sensors have been approved. Authorization number: [id number] Authorized from October 09, 2024 to October 09, 2025 Information received electronically from payer Called pt and notified of approval. Sent the above information to pt's Akampust for reference if he speaks with [facility] in [place] and they say they are still waiting [...] Encounter Status:Closed by CRAIG CLARK on 10/10/24 [facility] CNNURSEon 07-24-2024 [facility] Nurse Visit (FAMPWS) LONNIE GAVIRIA ([id number]) 1965 M Date Time Provider Department 07/24/24 3:45 PM [facility] During your visit today, we recorded the [...] Status:Closed by NINOSKA ODONNELL on 07/24/24 Normal [facility] 07-02-2024 [facility] Telephone (GASTA5) Mer LONNIE DENTON ([id number]) 1965 M Date Time Provider Department 07/02/24 FRANCISCO SANCHEZ GASTA5 During your visit today, we recorded the following information about you: Matthieu Gamboa 07/02/2024 9:27 AM Signed Pt called in Fibroscan order needed Matthieu Gamboa Refrigerator Room Clerk Jaki Ferrell RN 07/02/2024 9:54 AM Signed [...] by JAKI LEBRON on 07/02/24 Normal [facility] CNOVon 06-22-2024 CNOV Office Visit (INTMWS) LONNIE GAVIRIA ([id number]) 1965 M Date Time Provider Department 06/22/24 4:00 PM MOLLY KEARNS INTMWS During your visit today, we recorded the following information about you: Pulse Blood pressure Weight Height 81/minute 132/60 83.3 kg 1.77 m Molly Kearns MD 07/22/2024 1:06 PM Signed This note was created using [employer]. Subjective Lonnie Denton is a 58 year [...] (5' (more content not included)... Normal [facility] Hepatic function 2000 panelo n 06-05-2024 Albumin [Mass/Vol] 5.0 g/dL High 3.9-4.9 [facility] Comment on above: Order Comment: Speci men Type: BLOOD SPECIMENOrdering Facility: [facility] Address: [address] [place] [address] Performed By: #### 2 4325-3 ####[facility] [id number] [place] [id number] [place] ALP [Catalytic activity/Vol] 65 U/L Normal 38-113 [facility] Comment on above: Order Comment: Speci men Type: BLOOD SPECIMENOrdering Facility: [facility] Address: [address] [place] [address] Performed By: #### 2 4325-3 ####[facility] RAJESH MILLTOWNCLIA [id number] [place] [address] [place] ALT [Catalytic activity/Vol] 20 U/L Normal 10-54 [facility] Comment on above: Order Comment: Speci men Type: BLOOD SPECIMENOrdering Facility: [facility] Address: [address] [place] [address] Performed By: #### 2 4325-3 ####[facility] MILLTOWNCLIA [id number] [place] [address] [place] AST [Catalytic activity/Vol] 27 U/L Normal 14-40 [facility] Comment on above: Order Comment: Speci men Type: BLOOD SPECIMENOrdering Facility: [facility] Address: [address] [place] [address] Performed By: #### 2 4325-3 ####[facility] MILLTOWNCLIA [id number] [place] [address] [place] Bilirubin [Mass/Vol] 1.3 mg/dL Normal 0.2-1.3 [facility] Comment on above: Order Comment: Speci men Type: BLOOD SPECIMENOrdering Facility: [facility] Address: [address] [place] [address] Performed By: #### 2 4325-3 ####[facility] MILLTOWNCLIA [id number] [place] [address] [place] Bilirubin.conjugated [Mass/Vol] 0.4 mg/dL High <0.3 [facility] Comment on above: Order Comment: Speci men Type: BLOOD SPECIMENOrdering Facility: [facility] Address: [address] [place] [address] Performed By: #### 2 4325-3 ####[facility] MILLTOWNCLIA [id number] [place] [address] [place] Protein [Mass/Vol] 7.5 g/dL Normal 6.3-8.0 [facility] Comment on above: Order Comment: Speci men Type: BLOOD SPECIMENOrdering Facility: [facility] Address: [facility] [place] [address] Performed By: #### 2 4325-3 ####[facility] RAJESH [facility] [id number] [place], [place] [id number] [place] [address] OF [place]ET CNOVon 03-25-2024 CNOV Office Visit (GASTA5) LONNIE GAVIRIA ([id number]) 1965 M Date Time Provider Department 03/25/24 [...] Francisco Sanchez MD Referring Provider: FRANCISCO SANCHEZ [[id number]] Allergies As of Date: 03/25/2024 (No Known [...] Encounter Status:Closed by FRANCISCO SANCHEZ on 03/25/24 [facility] CNOVSPon 03-12-2024 CNOVSP Visit (SP) Office (HEMAWS) O YAELLONNIE SAHA ([id number]) 1965 M Date Time Provider Department 03/12/24 10:10 AM MITCH HERNANDEZ During your visit today, we recorded the following information about you: Temperature Pulse Blood pressure Weight 98.3 degrees 85/minute 153/75 84.6 kg Height 1.77 m Cara Horne LPN 03/12/2024 9:57 AM Signed New Pt.. Discuss recent IgG values NICOLE Guardado Paul A, DO 03/12/2024 11:13 AM Signed Patient referred by Jean Sylvester APRN.GRINDER GEAR for hypogammaglobulinemi a. HPI: The patient is [...] total IgG. I spent time going through [facility] records. He was admitted summer 2022 for acute hepatitis and cholecystitis as well as pancreatitis. Underwent cholecystectomy. Had extensive workup which included serum immunoglobulins wherein the total IgG was 579 and all 4 subclasses of IgG were normal. Serum protein electrophoresis demonstrated no monoclonal protein. Immunofixation of the serum negative. Since he was diagnosed with steatohepatitis. [facility]. Liver biopsy slides reviewed at [facility]. Also was found to be compound [...] PILONIDAL CYST/SINUS COMPLICATED 1970s F LITHOTRIPSY 06/09/2020 [facility], Dr. Swan loratadine (CLARITIN) 10 mg [...] Diabetes Patern (more content not included)... Normal [facility] 03-09-2024 CNPN Telephone (INTMWS) Mer DENTONLONNIE E ([id number]) 1965 M Date Time Provider Department 03/09/24 [...] [D80.1] Order(s):CONSULT TO HEMATOLOGY/ONCOLOGY [[id number]] Order #: [id number]: 1 FUTURE Prescriptions as of 03/10/2024 - [...] by JEAN SYLVESTER on 03/09/24 Normal [facility] ALBUMIN/CREATININE RATIO, UR INEon 03-06-2024 Albumin DL <= 20 mg/L (U) [Mass/Vol] mg/dL Normal [facility] Comment on above: Order Comment: Speci men Type: URINE SPECIMENOrdering Facility: [facility] Address: [address] [place] [address] Performed By: #### U ACR ####[facility] LABCLIA [id number] [facility] [place] [address] [place] Albumin/Creatinine (U) [Mass ratio] <9 Normal <30 [facility] Comment on above: Order Comment: Speci men Type: URINE SPECIMENOrdering Facility: [facility] Address: [address] [place] [address] Result Comment: Adul t Male and Female Nephrotic Criteria: <30 mg/g is considered normal to mildly increased 30-300 mg/g is considered moderately increased >300 mg/g is considered severely increased KDIGO. (2013). KDIGO 2012 Clinical Practice Guideline for the Evaluation and Management of Chronic Kidney Disease. Official Journal of the International Society of Nephrology, 3(1), 1-150. Performed By: #### U ACR ####[facility] LABIA [id number] [place] [address] [place] Creatinine (U) [Mass/Vol] 130.7 mg/dL Normal 20.0-300.0 [facility] Comment on above: Order Comment: Speci men Type: URINE SPECIMENOrdering Facility: [facility] Address: [address] [place] [address] Performed By: #### U ACR ####[facility] LABIA [id number] [place] [address] [place] CBC panel Auto (Bld)on 03-06 Erythrocyte distribution width (RBC) [Ratio] 12.2 % Normal 11.5-15.0 [facility] Comment on above: Order Comment: Speci men Type: BLOOD SPECIMENOrdering Facility: [facility] Address: [address] [place] [address] Performed By: #### 5 8410-2 ####[facility] [id number] [address] [place] Hematocrit (Bld) [Volume fraction] 47.9 % Normal 39.0-51.0 [facility] Comment on above: Order Comment: Speci men Type: BLOOD SPECIMENOrdering Facility: [facility] Address: [address] [place] [address] Performed By: #### 5 8410-2 ####[facility] [id number] [place] [address] [place] Hemoglobin (Bld) [Mass/Vol] 16.8 g/dL Normal 13.0-17.0 [facility] Comment on above: Order Comment: Speci men Type: BLOOD SPECIMENOrdering Facility: [facility] Address: [address] [place] [address] Performed By: #### 5 8410-2 ####[facility] MILLTOWNCLIA [id number] [address] STATES [facility] MCH (RBC) [Entitic mass] 31.1 pg Normal 26.0-34.0 [facility] Comment on above: Order Comment: Speci men Type: BLOOD SPECIMENOrdering Facility: [facility] Address: [address] [place] [address] Performed By: #### 5 8410-2 ####[facility] [id number] [address] OF [place] MCHC (RBC) [Mass/Vol] 35.1 g/dL Normal 30.5-36.0 [facility] Comment on above: Order Comment: Speci men Type: BLOOD SPECIMENOrdering Facility: [facility] Address: [address] [place] [address] Performed By: #### 5 8410-2 ####[facility] [id number] [address] [place] MCV (RBC) [Entitic vol] 88.5 fL Normal 80.0-100.0 [facility] Comment on above: Order Comment: Speci men Type: BLOOD SPECIMENOrdering Facility: [facility] Address: [address] [place] [address] Performed By: #### 5 8410-2 ####[facility] [id number] [address] OF [place] Nucleated RBC (Bld) [#/Vol] 10*3/uL Normal <0.01 [facility] Comment on above: Order Comment: Speci men Type: BLOOD SPECIMENOrdering Facility: [facility] Address: [address] [place] [address] Performed By: #### 5 8410-2 ####[facility] [id number] [place] [address] [place] Platelet mean volume (Bld) [Entitic vol] 11.3 fL Normal 9.0-12.7 [facility] Comment on above: Order Comment: Speci men Type: BLOOD SPECIMENOrdering Facility: [facility] Address: [address] [place] [address] Performed By: #### 5 8410-2 ####[facility] [id number] [place] [address] [place] Platelets (Bld) [#/Vol] 198 10*3/uL Normal 150-400 [facility] Comment on above: Order Comment: Speci men Type: BLOOD SPECIMENOrdering Facility: [facility] Address: [address] [place] [address] Performed By: #### 5 8410-2 ####[facility] [id number] [place] [address] [place] RBC (Bld) [#/Vol] 5.41 10*6/uL Normal 4.20-6.00 [facility] Comment on above: Order Comment: Speci men Type: BLOOD SPECIMENOrdering Facility: [facility] Address: [address] [place] [address] Performed By: #### 5 8410-2 ####[facility] [id number] [place] [address] [place] WBC (Bld) [#/Vol] 6.03 10*3/uL Normal 3.70-11.00 [facility] Comment on above: Order Comment: Speci men Type: BLOOD SPECIMENOrdering Facility: [facility] Address: [address] [place] [address] Performed By: #### 5 8410-2 ####[facility] [id number] [place] [address] [place] HbA1c (Bld)on 03-06-2024 Average glucose Estimated from glycated hemoglobin (Bld) [Mass/Vol] 123 mg/dL Normal [facility] Comment on above: Order Comment: Jairon leigh Type: BLOOD SPECIMENOrdering Facility: [facility] Address: [address] [place] [address] Result Comment: eAG: (Estimated average glucose) is a calculated value from HgbA1c and is home furnishings sales representative of the average blood glucose level in the last 2-3 month period. Performed By: #### 5 5454-3 ####[facility] LABIA [id number] [place] [address] [place] HbA1c (Bld) [Mass fraction] 5.9 % High 4.3-5.6 [facility] Comment on above: Order Comment: Jairon leigh Type: BLOOD SPECIMENOrdering Facility: [facility] Address: [address] [place] [address] Result Comment: Amer ican Diabetes Association guidelines indicate that patients with HgbA1c in the range 5.7-6.4% are at increased risk for development of diabetes, and intervention by lifestyle modification may be beneficial. HgbA1c greater or equal to 6.5% is considered diagnostic of diabetes. Performed By: #### 5 5454-3 ####[facility] LABCLIA [id number] [place] [address] [place] Hepatic function 2000 panelo n 03-06-2024 Albumin [Mass/Vol] 5.0 g/dL High 3.9-4.9 [facility] Comment on above: Order Comment: Jairon leigh Type: BLOOD SPECIMENOrdering Facility: [facility] Address: [address] [place] [address] Performed By: #### 2 4325-3 ####[facility] RAJESH [facility] [id number] [place] [address] [place] ALP [Catalytic activity/Vol] 69 U/L Normal 38-113 [facility] Comment on above: Order Comment: Speci men Type: BLOOD SPECIMENOrdering Facility: [facility] Address: [address] [place] [address] Performed By: #### 2 4325-3 ####[facility] [id number] [place] [address] [place] ALT [Catalytic activity/Vol] 21 U/L Normal 10-54 [facility] Comment on above: Order Comment: Speci men Type: BLOOD SPECIMENOrdering Facility: [facility] Address: [address] [place] [address] Performed By: #### 2 4325-3 ####[facility] [id number] [place] [address] [place] AST [Catalytic activity/Vol] 24 U/L Normal 14-40 [facility] Comment on above: Order Comment: Speci men Type: BLOOD SPECIMENOrdering Facility: [facility] Address: [address] [place] [address] Performed By: #### 2 4325-3 ####[facility] [id number] [place] [address] [place] Bilirubin [Mass/Vol] 1.1 mg/dL Normal 0.2-1.3 [facility] Comment on above: Order Comment: Speci men Type: BLOOD SPECIMENOrdering Facility: [facility] Address: [address] [place] [address] Performed By: #### 2 4325-3 ####[facility] [id number] [place] [address] [place] Bilirubin.conjugated [Mass/Vol] 0.3 mg/dL High <0.2 [facility] Comment on above: Order Comment: Speci men Type: BLOOD SPECIMENOrdering Facility: [facility] Address: [address] [place] [address] Result Comment: Resu lts may be falsely decreased due to interference from hemolysis. Suggest reorder as clinically indicated. Performed By: #### 2 4325-3 ####[facility] ERWNCLIA [id number] [place] [address] [place] Protein [Mass/Vol] 7.3 g/dL Normal 6.3-8.0 [facility] Comment on above: Order Comment: Speci men Type: BLOOD SPECIMENOrdering Facility: [facility] Address: [address] [place] [address] Performed By: #### 2 4325-3 ####[facility] [id number] [place] [address] [place] IMMUNOGLOBULINS,IGG,IGA,IGMo n 03-06-2024 IgA [Mass/Vol] 86 mg/dL Normal 70-400 [facility] Comment on above: Order Comment: Speci men Type: BLOOD SPECIMENOrdering Facility: [facility] Address: [address] [place] [address] Performed By: #### S ERIMM ####[facility] LABCLIA [id number] [place] [address] [place] IgG [Mass/Vol] 669 mg/dL Low 700-1600 [facility] Comment on above: Order Comment: Speci men Type: BLOOD SPECIMENOrdering Facility: [facility] Address: [address] [place] [address] Performed By: #### S ERIMM ####[facility] LABCLIA [id number] [place] [address] [place] IgM [Mass/Vol] 55 mg/dL Normal 40-230 [facility] Comment on above: Order Comment: Speci men Type: BLOOD SPECIMENOrdering Facility: [facility] Address: [address] [place] [address] Performed By: #### S ERIMM ####[facility] LABCLIA [id number] [place] [address] [place] CNPNon 11-07-2024 CNPN Telephone (INTMWS) Mer DENTONLONNIE E ([id number]) 1965 M Date Time Provider Department 02/27/24 MOLLY KEARNS INTMWS During your visit today, we recorded the following information about you: Traci Jordan RN 02/27/2024 3:30 PM Signed Patient and calls and states that patient had a rash over body that looked like a bullseye. Patient was seen at [facility] where he was tested for lyme disease as well as protein electrophoresis serum. Results are in labs. Patient's Gamma Globulin was at 0.52 which is abnormal low. [facility] had told patient that with the Bullseye [...] in for his doctor appointment. He said [facility] told him to call PCP and ask about his. Pt would like provider to call him back on his cell #. I told him I didn't know if they would get back to him this week. Jean Sylvester APRN.GRINDER GEAR 02/28/2024 3:50 PM Signed Please let them [...] provider hears from them. GUNNAR Escobar Rosa, APRN.GRINDER GEAR 03/02/2024 1:47 PM Signed Please return call, let them know hem/onc recommended some follow up blood work to check IGG, IGA, IGM levels. Orders placed. Also can we check on getting the office note from [employer] for this? Thank you! Ginny Lowe LPN 03/02/2024 2:00 PM Signed PATIENT NOTIFIED OF SAME. Will have labs completed 03/06/24 Records released faxed to [facility]. Allergies As of Date: 02/27/2024 (No Known Allergies) Date Reviewed: 12/02/2023 Reviewed by: Lisandra Hendricks LPN - Fully Assessed Reason for Visit: Patient Question [1477] Primary Visit Diagnosis:Hypogammag lobulinemia (HCC) [D80.1] Order(s):IMMUNOGLOBU RUBEN,IGG,IGA,IGM [SQSERIMM] Order #: [id number] FUTURE Prescriptions as of 03/02/2024 - loratadine [...] 08/16/2023 (more content not included)... Normal [facility] Lyme Antibodies,W Bloton LYME IgG INTERP Negative Normal . [facility] Comment on above: Result Comment: Posi tive: 5 of the following Borrelia-specific bands: 18,23,28,30,39,41,45,58, 66, and 93. Negative: No bands or banding patterns which do not meet positive criteria. Performed By: #### L 7000.5800 #### [facility] [address] [place], [address] LYME IgM INTERP Negative Normal . [facility] Comment on above: Result Comment: Note [...] are those recommended by CDC/ASTPHLD. p23=Osp C, f43=ttlsfebeh Note: Sera from individuals with the following may cross react in the Lyme Line Blot assays: other spirochetal diseases (periodontal disease, leptospirosis, relapsing fever, yaws, and pinta); connective autoimmune (Rheumatoid Arthritis and Systemic Lupus Erythematosus and also individuals with Antinuclear Antibody); other infections (Dotsero Spotted Fever; Cassandra-Smith Virus, and Cytomegalovirus). Please Note: Lyme immunoblot alone is not recommended for the diagnosis of Lyme disease. Current guidelines recommend the use of a two-tiered approach to Lyme serology testing to improve the sensitivity and specificity of testing. [facility] offers test code 397761 Lyme Disease Serology with Reflex to aid in the diagnosis of Lyme Disease. Performed at: [address] [id number] [employer] Driver: Renee Cantrell MD, Phone: [phone] Performed By: #### L 7000.5800 #### [facility] [address] [place], [address] P18 Ab Absent Normal . [facility] Comment on above: Performed By: #### L 7000.5800 #### [facility] [address] [place], [address] P23 Ab Absent Normal . [facility] Comment on above: Performed By: #### L 0.5800 #### [facility] [address] [place], [address] P28 Ab Absent Normal . [facility] Comment on above: Performed By: #### L 0.5800 #### [facility] [address] [place], [address] P30 Ab Absent Normal . [facility] Comment on above: Performed By: #### L 7000.5800 #### [facility] [address] [place], [address] P39 Ab Absent Normal . [facility] Comment on above: Performed By: #### L 7000.5800 #### [facility] [address] [place], [address] P41 Ab Absent Normal . [facility] Comment on above: Performed By: #### L 7000.5800 #### [facility] [address] [place], [address] P45 Ab Absent Normal . [facility] Comment on above: Performed By: #### L 7000.5800 #### [facility] [address] [place], [address] P58 Ab Present Abnormal . [facility] Comment on above: Performed By: #### L 7000.5800 #### [facility] [address] [place], [address] P66 Ab Absent Normal . [facility] Comment on above: Performed By: #### L 7000.5800 #### [facility] [address] [place], [address] P93 Ab Absent Normal . [facility] Comment on above: Performed By: #### L 7000.5800 #### [facility] [address] [place], [address] Miscellaneous Lab Procedure 2on 05-07-2023 [facility] TEST 2 Normal [facility] Comment on above: Order Comment: PROTE CT FROM LIGHT PORPHYRINS RANDOM URINE [id number] Result Comment: TEST RESULTS LIMITS Porphyrins, Qn, [...] III 15 ug/L 0-49 TESTING PERFORMED AT [facility]. ORIGINAL REPORT ON FILE IN LAB CONTAINS ADDITIONAL TEST SITE INFORMATION. Performed By: #### L 801.1543, L801.1541 #### [facility] [address] [place], [address] Gastroenterology Visit Repor ton 05-06-2023 Gastroenterology Visit Report [facility] Gastroenterology [address] [facility] [place] [address] OFFICE VISIT Date of Service: 05/06/23 MR#: [id number] Acct: [id number] Name: LONNIE MORA Rep #: [id number] : 1965 Provider: Dr. Ebenezer crowe MD Age/Sex: 57/M [place] [facility] [place]: S[place] Intake Vital Signs 04/04/23 [...] PO DAILY 06/07/20 [History Confirmed 05/06/23] omega 4-deu-fvh-fish oil 1,200 mg (144 mg-216 mg) capsule (Fish Oil) cap PO general health 10/18/22 [History Confirmed 05/06/23] flash glucose scanning reader ([employer] [facility] 14 Day Imboden) 03/18/23 [History Confirmed 05/06/23] insulin lispro 100 unit/mL subcutaneous pen (Humalog KwikPen (U-100) Insulin) 4 unit subcut TID 03/18/23 [History Confirmed 05/06/23] potassium citrate 15 mEq (1,620 mg) tablet,extended release 15 meq PO BID 03/18/23 [History Confirmed 05/06/23] nutritional supplement-fiber oral ea PO 05/06/23 [History Confirmed 05/06/23] [facility] Medical History Acute gallstone pancreatitis Diabetes High [...] today for follow up. Patient established to [facility] through [facility] hospitalization 10.18.22-10.23.22 with abdominal pain and [...] eyes Fausto/ (more content not included)... Normal [facility] Miscellaneous Lab Procedureo n 04-28-2023 [facility] LAB TEST Normal [facility] Comment on above: Order Comment: PROTE CT FROM LIGHT AUTOIMMUNE LIVER [id number] SER/RF Result Comment: TEST RESULTS LIMITS Autoimmune [...] developed and its performance characteristics determined by [facility]. It has not been cleared or approved by the Food and Drug Administration. TESTING PERFORMED AT [facility]. ORIGINAL REPORT ON FILE IN LAB CONTAINS ADDITIONAL TEST SITE INFORMATION. Performed By: #### L 801.1543, L801.1541 #### [facility] [address] [place], [address] Oncology Visit Reporton 03-22 Oncology Visit Report [facility] [address] [place] [address] OFFICE VISIT Date of Service: 04/04/23 1028 MR#: [id number] Acct: [id number] Name: LONNIE MORA Rep #: [id number] : 1965 From: Viry Paul MD Age/Sex: 57/M [place] [facility] [place]: Signed HPI Subjective Date of Service [...] for Hereditary Hemochromatosis revealed a double heterozygous. [facility] Medical History (Updated 04/04/23 @ 12:48 by [...] PO DAILY 06/07/20 [History Confirmed 03/18/23] omega 2-fli-knt-fish oil 1,200 mg (144 mg-216 mg) capsule (Fish Oil) cap PO general health 10/18/22 [History Confirmed 03/18/23] flash glucose scanning reader ([employer] [employer] [facility]da 14 Day Imboden) 03/18/23 [History Confirmed 03/18/23] insulin lispro 100 [...] Lab Iron Saturation 24.0 47% (15-57%) Ferritin 25179 H 420 (30-565) 10/22/2022 Liver, CT-guided core biopsy: Liver parenchymal tissue with extensive macro- and microvesicular steatosis, acute and chronic hepatitis, grade 2, stage 2. Exam Physical Exam Narrative ECOG 0 Const alert, oriented x3 and no apparent distress Gen (more content not included)... Normal [facility] Gastroenterology Visit Repor ton 03-18-2023 Gastroenterology Visit Report [facility] Gastroenterology [address] [place] [address] OFFICE VISIT Date of Service: 03/18/23 MR#: [id number] Acct: [id number] Name: LONNIE MORA Rep #: [id number] : 1965 Provider: Dr. Ebenezer crowe MD Age/Sex: 57/M [place] [facility] [place] Status: Signed with Addenda ADDENDUM by [...] PO DAILY 06/07/20 [History Confirmed 03/18/23] omega 0-xdz-lum-fish oil 1,200 mg (144 mg-216 mg) capsule (Fish Oil) cap PO general health 10/18/22 [History Confirmed 03/18/23] tramadol 50 mg tablet 50 mg PO Q6H PRN pain #10 tabs 10/22/22 [Rx Confirmed 03/18/23] flash glucose scanning reader ([employer] [facility] 14 Day Imboden) 03/18/23 [History Confirmed 03/18/23] insulin lispro 100 unit/mL subcutaneous pen (Humalog KwikPen (U-100) Insulin) 4 unit subcut TID 03/18/23 [History Confirmed 03/18/23] methylcellulose (laxative) 500 mg tablet 500 mg PO DAILY 03/18/23 [History Confirmed 03/18/23] potassium citrate 15 mEq (1,620 mg) tablet,extended release 15 meq PO BID 03/18/23 [History Confirmed 03/18/23] [facility] Medical History Acute gallstone pancreatitis Diabetes High cholesterol Hypertension Obstructive sleep apnea Social History Smoking Status: Never smoker HPI HPI Chief Complaint: f/u Details: LONNIE MORA, is a 57 M who presents to the office today for follow up. Patient established to [facility] through [facility] hospitalization 10.18.22-10.23.22 with abdominal pain and [...] itchy e (more content not included)... Normal [facility] Absolute lymphocyte countOrd ered By: Bryson Merritt on 10-22-2022 Lymphocytes Auto (Unsp spec) [#/Vol] 0.66 10*3/uL 0.83-4.51 [facility] Basophil percentageOrdered B y: Bryson Merritt on 10-22-2022 Basophils/100 WBC (Bld) 0.1 % 0-1 [facility] Bilirubin [Mass/Vol] 10.60 mg/dL 0.20-1.00 [facility] Comment on above: For patients on eltr ombopag therapy, use of Dimension [place] TBIL is not recommended. Chloride [Moles/Vol] 100 mmol/L 98-107 [facility] Eosinophils/100 WBC (Bld) 0.0 % 0-5 [facility] Glucose [Mass/Vol] 275 mg/dL 74-106 [facility] Comment on above: Glucose result great er than or equal to 200 mg/dLsuggests DIABETES MELLITUS per A.D.A. criteria. Neutrophils (Bld) [#/Vol] 9.1 10*3/uL 2.0-7.7 [facility] Neutrophils/100 WBC (Bld) 86.4 % 47-70 [facility] Potassium [Moles/Vol] 3.1 mmol/L 3.5-5.1 [facility] Protein [Mass/Vol] 6.0 g/dL 6.4-8.2 [facility] Comment on above: Moderate Icterus, Re sult may be falsely decreased. Sodium [Moles/Vol] 134 mmol/L 136-145 [facility] WBC (Bld) [#/Vol] 10.5 10*3/uL 4.4-11.0 [facility] Blood erythrocytes count (nu mber/volume)Ordered By: Bryson Merritt on 10-22-2022 RBC (Bld) [#/Vol] 4.52 10*6/uL 4.6-6.2 [facility] Blood hemoglobin measurement (mass/volume)Ordered By: Bryson Merirtt on 10-22-2022 Hemoglobin (Bld) [Mass/Vol] 14.1 g/dL 13.0-16.5 [facility] Blood lymphocytes/100 leukoc ytesOrdered By: Bryson Merritt on 10-22-2022 Lymphocytes/100 WBC (Bld) 6.3 % 19-41 [facility] Blood monocytes/100 leukocyt esOrdered By: Bryson Merritt on 10-22-2022 Monocytes/100 WBC (Bld) 6.7 % 0-10 [facility] Blood platelet mean volumeOr dered By: Bryson Merritt on 10-22-2022 Platelet mean volume (Bld) [Entitic vol] 11.9 fL 6.2-12.0 [facility] Determination of erythrocyte mean corpuscular volume (MCV)Ordered By: Bryson Merritt on 10-22-2022 MCV (RBC) [Entitic vol] 90.0 fL 80-94 [facility] Erythrocyte sedimentation ra teOrdered By: Bryson Merritt on 10-22-2022 ESR (Bld) [Velocity] 47 mm/h 0-20 [facility] Glucose Glucometer (dC) [M ass/Vol]Ordered By: Darrius Rubalcava on 10-22-2022 Glucose [Mass/Vol] 379 mg/dL 74-106 [facility] Comment on above: MANAGEMENT OF PATIEN T CARE PER NURSING PROTOCOL Hematocrit Auto (Bld) [Volum e fraction]Ordered By: Bryson Merritt on 10-22-2022 Hematocrit (Bld) [Volume fraction] 40.7 % 40-54 [facility] - Chemistry and C hemistry - challengeOrdered By: Bryson Merritt on 10-22-2022 ALP [Catalytic activity/Vol] 317 U/L 45-117 [facility] ALT [Catalytic activity/Vol] 755 U/L 16-61 [facility] CO2 [Moles/Vol] 29.0 mmol/L 21.0-32.0 [facility] Globulin (S) [Mass/Vol] 3.2 g/dL 2.2-4.2 [facility] Urea nitrogen/Creatinine [Mass ratio] 25.7 mg/mg 10-20 [facility] - Hematology and Cell countsOrdered By: Bryson Merritt on 10-22-2022 Erythrocyte distribution width (RBC) [Entitic vol] 41.0 fL 35.1-43.9 [facility] Erythrocyte distribution width (RBC) [Ratio] 12.3 % 11.6-14.6 [facility] Immature granulocytes/100 WBC (Bld) 0.500 % 0.0-0.9 [facility] Comment on above: IG% - Immature Granu locytes (promyelocytes, myelocytes and metamyelocytes) > 1% indicates that a LEFT SHIFT is Present. MCH (RBC) [Entitic mass] 31.2 pg 27.0-32.0 [facility] Nucleated RBC/100 WBC (Bld) [Ratio] 0 % 0-5 [facility] MCHC Auto (RBC) [Mass/Vol]Or dered By: Bryson Merritt on 10-22-2022 MCHC (RBC) [Mass/Vol] 34.6 g/dL 32-36 [facility] No Panel InformationOrdered By: Bryson Merritt on 10-22-2022 Estimated Creatinine Clearance Calc 105.10 ml/min [facility] Estimated GFR (MDRD) Amer 126 mL/min >60 [facility] Comment on above: GFR Calc Estimated GFR (MDRD) Non-Af Amer 104 mL/min >60 [facility] Comment on above: Non- GFR Calc Platelets bldOrdered By: Ronnell Merritt on 10-22-2022 Platelets (Bld) [#/Vol] 182 10*3/uL 150-450 [facility] Serum or plasma C reactive p rotein measurement (mass/volume)Ordered By: Bryson Merritt on 10-22-2022 CRP [Mass/Vol] 52.30 mg/L 0.0-3.0 [facility] Comment on above: C-Reactive Protein ( CRP) provides useful information for thediagnosis, therapy and monitoring of inflammatory processesand associated diseases. For the evaluation of Relative Riskfor Cardiovascular Disease, a High Sensitivity CRP (HSCRP)should be ordered. Serum or plasma albumin rose urement (mass/volume)Ordered By: Bryson Merritt on 10-22-2022 Albumin [Mass/Vol] 2.8 g/dL 3.2-5.0 [facility] Serum or plasma albumin/glob ulin mass ratioOrdered By: Bryson Merritt on 10-22-2022 Albumin/Globulin [Mass ratio] 0.9 {ratio} 0.9-2.4 [facility] Serum or plasma calcium rose urement (mass/volume)Ordered By: Bryson Merritt on 10-22-2022 Calcium [Mass/Vol] 8.9 mg/dL 8.5-10.1 [facility] Serum or plasma creatinine m easurement (mass/volume)Ordered By: Bryson Merritt on 10-22-2022 Creatinine [Mass/Vol] 0.82 mg/dL 0.70-1.30 [facility] Comment on above: Moderate Icterus, Re sult may be falsely decreased.The validity of the calculated GFR & GFRAA in patients over 70 years has not been determined. Clinical correlation is essential. Serum or plasma urea nitroge n measurement (mass/volume)Ordered By: Bryson Merritt on 10-22-2022 Urea nitrogen [Mass/Vol] 21 mg/dL 7-18 [facility] Thin prep Papanicolaou smear with manual screeningOrdered By: Bryson Merritt on 10-22-2022 Thin prep Papanicolaou smear with manual screening 579 U/L 15-37 [facility] Thin prep Papanicolaou smear with manual screening 5 5-15 [facility] Blood manual differential co mment interpretation (narrative result)Ordered By: Bryson Merritt on 10-21-2022 Manual differential comment Blake (Bld) [Interp] SCANNED [facility] Basophil percentageOrdered B y: Ranjith Friend on 10-20-2022 Ammonia (P) [Moles/Vol] 29.0 umol/L 11-32 [facility] Lactate [Moles/Vol] 1.1 mmol/L 0.4-2.0 [facility] LDH [Catalytic activity/Vol] 528 U/L 87-241 [facility] INR in Blood by Coagulation assayOrdered By: Ranjith Sarmiento on 10-20-2022 INR Coag (Bld) [Relative time] 1.3 {INR} [facility] Iron measurement (mass/mass) Ordered By: Ranjith Sarmiento on 10-20-2022 Iron (Unsp spec) [Mass/Mass] 90 ug/dL 65-175 [facility] - Chemistry and C hemistry - challengeOrdered By: Ranjith Sarmiento on 10-20-2022 CK [Catalytic activity/Vol] 126 U/L 39-308 [facility] - CoagulationOrde red By: Ranjith Sarmiento on 10-20-2022 aPTT Coag (Bld) [Time] 32.1 s 24.1-36.2 [facility] PT Coag (PPP) [Time] 15.9 s 11.7-14.9 [facility] No Panel InformationOrdered By: Ranjith Sarmiento on 10-20-2022 Total Iron Binding Capacity 375 ug/dL 250-450 [facility] No Panel InformationOrdered By: Bryson Merritt on 10-20-2022 Hepatitis A IgM Antibody Negative Negative [facility] Hepatitis B Core IgM Antibody Negative Negative [facility] Hepatitis C Antibody (EIA) Non-Reactive Non Reactive [facility] Hepatitis C Antibody Comment Comment . [facility] Comment on above: Not infected with HC V unless early or acute infection issuspected (which may be delayed in an immunocompromisedindividual), or other evidence exists to indicate HCVinfection.Performed at: [facility] [id number] Director: Edi Arboleda PhD, Phone: [phone] Serum or plasma ferritin ajith surement (mass/volume)Ordered By: Ranjith Sarmiento on 10-20-2022 Ferritin [Mass/Vol] 79836 ng/mL 26-388 [facility] Comment on above: Moderate Icterus, Re sult may be falsely decreased. Serum or plasma hepatitis B virus surface antigen detection by immunoassayOrdered By: Bryson Merritt on 10-20-2022 HBV surface Ag IA Ql Negative Negative [facility] Serum or plasma iron saturat ion measurement (mass fraction)Ordered By: Ranjith Sarmiento on 10-20-2022 Iron saturation [Mass fraction] 24.0 % 15.0-55.0 [facility] Basophil percentageOrdered B y: Darrius Rubalcava on 10-19-2022 Basophil percentage 2.6 mg/dL 2.5-4.9 [facility] - Chemistry and C hemistry - challengeOrdered By: Darrius Rubalcava on 10-19-2022 Lipase [Catalytic activity/Vol] 409 U/L 13-75 [facility] Comment on above: Please note:LIPASE r evised reference range effective 22. New Lipase methodology. Expected to produce lower values than the previous assay method. NEW Reference Range: 13 - 75 U/L Magnesium [Mass/Vol] 1.9 mg/dL 1.6-2.6 [facility] Whole blood hemoglobin A1c/t otal hemoglobin ratio (mass fraction)Ordered By: Bobby Silva on 10-19-2022 HbA1c (Bld) [Mass fraction] 8.3 % 3.8-5.6 [facility] Comment on above: Normal < 5.7 % Predi abetic 5.7 - 6.4 % Diabetic >or= 6.5 % Please note range changes. Absolute lymphocyte countOrd ered By: Noe Barbour on 10-18-2022 Lymphocytes Auto (Unsp spec) [#/Vol] 0.98 10*3/uL 0.83-4.51 [facility] Basophil percentageOrdered B y: Noe Barbour on 10-18-2022 Basophil percentage 0 SEEN /hpf 0-5 [facility] Basophils/100 WBC (Bld) 0.3 % 0-1 [facility] Bilirubin [Mass/Vol] 2.90 mg/dL 0.20-1.00 [facility] Comment on above: For patients on eltr ombopag therapy, use of Dimension [place] TBIL is not recommended. Chloride [Moles/Vol] 102 mmol/L 98-107 [facility] Eosinophils/100 WBC (Bld) 0.8 % 0-5 [facility] Glucose [Mass/Vol] 238 mg/dL 74-106 [facility] Comment on above: Glucose result great er than or equal to 200 mg/dLsuggests DIABETES MELLITUS per A.D.A. criteria. Neutrophils (Bld) [#/Vol] 10.1 10*3/uL 2.0-7.7 [facility] Neutrophils/100 WBC (Bld) 83.9 % 47-70 [facility] Potassium [Moles/Vol] 4.4 mmol/L 3.5-5.1 [facility] Comment on above: Moderate Hemolysis, Result may be falsely increased. Protein [Mass/Vol] 7.5 g/dL 6.4-8.2 [facility] Sodium [Moles/Vol] 137 mmol/L 136-145 [facility] WBC (Bld) [#/Vol] 12.0 10*3/uL 4.4-11.0 [facility] Bilirubin Test strip Ql (U)O rdered By: Noe Barbour on 10-18-2022 Bilirubin Ql (U) Negative Negative [facility] Blood erythrocytes count (nu mber/volume)Ordered By: Noe Barbour on 10-18-2022 RBC (Bld) [#/Vol] 5.05 10*6/uL 4.6-6.2 [facility] Blood hemoglobin measurement (mass/volume)Ordered By: Noe Barbour on 10-18-2022 Hemoglobin (Bld) [Mass/Vol] 15.7 g/dL 13.0-16.5 [facility] Blood lymphocytes/100 leukoc ytesOrdered By: Noe Barbour on 10-18-2022 Lymphocytes/100 WBC (Bld) 8.2 % 19-41 [facility] Blood monocytes/100 leukocyt esOrdered By: Noe Barbour on 10-18-2022 Monocytes/100 WBC (Bld) 6.5 % 0-10 [facility] Blood platelet mean volumeOr dered By: Noe Barbour on 10-18-2022 Platelet mean volume (Bld) [Entitic vol] 10.9 fL 6.2-12.0 [facility] Determination of erythrocyte mean corpuscular volume (MCV)Ordered By: Noe Barbour on 10-18-2022 MCV (RBC) [Entitic vol] 87.5 fL 80-94 [facility] Direct bilirubinOrdered By: Noe Barbour on 10-18-2022 Bilirubin.direct [Mass/Vol] 1.07 mg/dL 0.00-0.30 [facility] Hematocrit Auto (Bld) [Volum e fraction]Ordered By: Noe Barbour on 06-29-2023 Hematocrit (Bld) [Volume fraction] 44.2 % 40-54 [facility] Ketones Test strip Ql (U)Ord ered By: Noe Barbour on 10-18-2022 Ketones Ql (U) Negative Negative [facility] - Chemistry and C hemistry - challengeOrdered By: Noe Barbour on 10-18-2022 ALP [Catalytic activity/Vol] 72 U/L 45-117 [facility] ALT [Catalytic activity/Vol] 63 U/L 16-61 [facility] CO2 [Moles/Vol] 29.0 mmol/L 21.0-32.0 [facility] Globulin (S) [Mass/Vol] 3.6 g/dL 2.2-4.2 [facility] Lipase [Catalytic activity/Vol] 1548 U/L 13-75 [facility] Comment on above: Please note:LIPASE r evised reference range effective 22. New Lipase methodology. Expected to produce lower values than the previous assay method. NEW Reference Range: 13 - 75 U/L Urea nitrogen/Creatinine [Mass ratio] 16.2 mg/mg 10-20 [facility] - Hematology and Cell countsOrdered By: Noe Barbour on 10-18-2022 Erythrocyte distribution width (RBC) [Entitic vol] 37.2 fL 35.1-43.9 [facility] Erythrocyte distribution width (RBC) [Ratio] 11.8 % 11.6-14.6 [facility] Immature granulocytes/100 WBC (Bld) 0.300 % 0.0-0.9 [facility] Comment on above: IG% - Immature Granu locytes (promyelocytes, myelocytes and metamyelocytes) > 1% indicates that a LEFT SHIFT is Present. MCH (RBC) [Entitic mass] 31.1 pg 27.0-32.0 [facility] Nucleated RBC/100 WBC (Bld) [Ratio] 0 % 0-5 [facility] MCHC Auto (RBC) [Mass/Vol]Or dered By: Noe Barbour on 10-18-2022 MCHC (RBC) [Mass/Vol] 35.5 g/dL 32-36 [facility] Mucus LM Ql (Urine sed)Order ed By: Noe Barbour on 10-18-2022 Mucus Ql (Urine sed) 0 SEEN /hpf [facility] Nitrite Test strip Ql (U)Ord ered By: Noe Barbour on 10-18-2022 Nitrite Ql (U) Negative Negative [facility] No Panel InformationOrdered By: Noe Barbour on 10-18-2022 Estimated Creatinine Clearance Calc 87.05 ml/min [facility] Estimated GFR (MDRD) Amer 101 mL/min >60 [facility] Comment on above: GFR Calc Estimated GFR (MDRD) Non-Af Amer 84 mL/min >60 [facility] Comment on above: Non- GFR Calc Platelets bldOrdered By: Kerwin Barbour on 10-18-2022 Platelets (Bld) [#/Vol] 207 10*3/uL 150-450 [facility] Protein Test strip Ql (U)Ord ered By: Noe Barbour on 10-18-2022 Protein Ql (U) Negative Negative [facility] Serum or plasma albumin rose urement (mass/volume)Ordered By: Noe Barbour on 10-18-2022 Albumin [Mass/Vol] 3.9 g/dL 3.2-5.0 [facility] Serum or plasma calcium rose urement (mass/volume)Ordered By: Noe Barbour on 10-18-2022 Calcium [Mass/Vol] 9.2 mg/dL 8.5-10.1 [facility] Serum or plasma creatinine m easurement (mass/volume)Ordered By: Noe Barbour on 10-18-2022 Creatinine [Mass/Vol] 0.99 mg/dL 0.70-1.30 [facility] Comment on above: The validity of the calculated GFR & GFRAA in patients over 70 years has not been determined. Clinical correlation is essential. Serum or plasma urea nitroge n measurement (mass/volume)Ordered By: Noe Barbour on 10-18-2022 Urea nitrogen [Mass/Vol] 16 mg/dL 7-18 [facility] Squamous epithelial cells de tection in urine sediment by light microscopyOrdered By: Noe Barbour on 10-18-2022 Epithelial cells.squamous LM Ql (Urine sed) 0 SEEN /hpf 0-5 [facility] Thin prep Papanicolaou smear with manual screeningOrdered By: Noe Barbour on 10-18-2022 Thin prep Papanicolaou smear with manual screening 67 U/L 15-37 [facility] Comment on above: Moderate Hemolysis, Result may be falsely increased. Thin prep Papanicolaou smear with manual screening 6 5-15 [facility] Urine blood detectionOrdered By: Noe Barbour on 10-18-2022 RBC Ql (U) 25 /ul Negative [facility] RBC Ql (U) 0 SEEN /hpf 0-5 [facility] Urine clarityOrdered By: Kerwin Barbour on 10-18-2022 Clarity (U) Clear Clear [facility] Urine color determinationOrd ered By: Noe Barbour on 10-18-2022 Color (U) Yellow Yellow [facility] Urine glucose detectionOrder ed By: Noe Barbour on 10-18-2022 Glucose Ql (U) Normal mg/dl Normal [facility] Urine leukocyte esterase det ection by dipstickOrdered By: Noe Barbour on 10-18-2022 Leukocyte esterase Test strip Ql (U) Negative Negative [facility] Urine pHOrdered By: Noe Barbour on 10-18-2022 pH (U) 5.0 [pH] 5.0 - 8.0 [facility] Urine sediment bacteria coun t by microscopy (number/high power field)Ordered By: Noe Barbour on 10-18-2022 Bacteria LM.HPF (Urine sed) [#/Area] 0 /[HPF] None Seen [facility] Urine specific gravity measu rementOrdered By: Noe Barbour on 10-18-2022 Specific gravity (U) [Rel density] 1.015 1.002-1.030 [facility] Urobilinogen Auto test strip Ql (U)Ordered By: Noe Barbour on 10-18-2022 Urobilinogen Ql (U) Normal mg/dl Normal [facility] Vital Signs Date Time Vital Sign Value Performing Clinician Facility 06-22-2024 17:53-0500 Diastolic blood pressure 60 mm[Hg] Molly Kearns MD Work Phone: [facility] 06-22-2024 17:53-0500 Systolic blood pressure 132 mm[Hg] Molly Kearns MD Work Phone: [facility] 06-22-2024 15:50-0500 Body height 177 cm Molly Kearns MD Work Phone: [facility] 06-22-2024 15:50-0500 Body mass index (BMI) [Ratio] 26.58 kg/m2 Molly Kearns MD Work Phone: [facility] 06-22-2024 15:50-0500 Body weight 83.3 kg Molly Kearns MD Work Phone: [facility] 06-22-2024 15:50-0500 Heart rate 81 /min Molly Kearns MD Work Phone: [facility] 06-22-2024 15:50-0500 SaO2% (BldA) [Mass fraction] 99 % Molly Kearns MD Work Phone: [facility] 03-25-2024 10:44-0500 Body height 177 cm Francisco Sanchez MD Work Phone: [facility] 03-25-2024 10:44-0500 Body mass index (BMI) [Ratio] 26.94 kg/m2 Francisco Sanchez MD Work Phone: [facility] 03-25-2024 10:44-0500 Body temperature 97.7 [degF] Francisco Sanchez MD Work Phone: [facility] 03-25-2024 10:44-0500 Body weight 84.4 kg Francisco Sanchez MD Work Phone: [facility] 03-25-2024 10:44-0500 Diastolic blood pressure 73 mm[Hg] Francisco Sanchez MD Work Phone: [facility] 03-25-2024 10:44-0500 Heart rate 87 /min Francisco Sanchez MD Work Phone: [facility] 03-25-2024 10:44-0500 SaO2% (BldA) [Mass fraction] 98 % Francisco Sanchez MD Work Phone: [facility] 03-25-2024 10:44-0500 Systolic blood pressure 157 mm[Hg] Francisco Sanchez MD Work Phone: [facility] 03-12-2024 09:56-0500 Body height 177 cm Mitch Hernandez DO Work Phone: [facility] 03-12-2024 09:56-0500 Body mass index (BMI) [Ratio] 27 kg/m2 Mitch Hernandez DO Work Phone: [facility] 03-12-2024 09:56-0500 Body temperature 98.29 [degF] Mitch Colvini DO Work Phone: [facility] 03-12-2024 09:56-0500 Body weight 84.6 kg Mitch Hernandez DO Work Phone: [facility] 03-12-2024 09:56-0500 Diastolic blood pressure 75 mm[Hg] Mitch Hernandez DO Work Phone: [facility] 03-12-2024 09:56-0500 Heart rate 85 /min Mitch Hernandez DO Work Phone: [facility] 03-12-2024 09:56-0500 SaO2% (BldA) [Mass fraction] 98 % Mitch Hernandez DO Work Phone: [facility] 03-12-2024 09:56-0500 Systolic blood pressure 153 mm[Hg] Mitch Hernandez DO Work Phone: [facility] 12-02-2023 17:49-0400 Diastolic blood pressure 64 mm[Hg] Molly Kearns MD Work Phone: [facility] 12-02-2023 17:49-0400 Systolic blood pressure 122 mm[Hg] Molly Kearns MD Work Phone: [facility] 12-02-2023 15:55-0400 Body height 177.8 cm Molly Kearns MD Work Phone: [facility] 12-02-2023 15:55-0400 Body mass index (BMI) [Ratio] 26.57 kg/m2 Molly Kearns MD Work Phone: [facility] 12-02-2023 15:55-0400 Body temperature 98.4 [degF] Molly Kearns MD Work Phone: [facility] 12-02-2023 15:55-0400 Body weight 84 kg Molly Kearns MD Work Phone: [facility] 12-02-2023 15:55-0400 Heart rate 84 /min Molly Kearns MD Work Phone: [facility] 12-02-2023 15:55-0400 Respiratory rate 16 /min Molly Kearns MD Work Phone: [facility] 12-02-2023 15:55-0400 SaO2% (BldA) [Mass fraction] 98 % Molly Kearns MD Work Phone: [facility] 08-16-2023 14:51-0400 Diastolic blood pressure 60 mm[Hg] 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: [facility] 08-16-2023 14:51-0400 Systolic blood pressure 130 mm[Hg] 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: [facility] 08-16-2023 14:49-0400 Body mass index (BMI) [Ratio] 25.97 kg/m2 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: [facility] 08-16-2023 14:49-0400 Body weight 82.1 kg 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: [facility] 08-16-2023 14:49-0400 Heart rate 77 /min 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: [facility] 08-16-2023 14:49-0400 SaO2% (BldA) [Mass fraction] 98 % 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: [facility] 04-04-2023 10:30-0500 Body height 177.[address] Molly Kearns Work Phone: [facility] 04-04-2023 10:30-0500 Body mass index (BMI) [Ratio] 26 kg/m2 Dr. Molly Kearns Work Phone: 8(325)535-940298 [place] [address] 04-04-2023 10:30-0500 Body temperature 98.3 [degF] Dr. Molly Kearns Work Phone: 7(369)832-001398 [place] [address] 04-04-2023 10:30-0500 Body weight 82.[address] Mloly Kearns Work Phone: 5(037)594-268598 [place] [address] 04-04-2023 10:30-0500 Diastolic blood pressure 71 mm[Hg] Dr. Molly Kearns Work Phone: 6(871)723-411398 [place] [address] 04-04-2023 10:30-0500 Heart rate 78 /min Dr. Molly Kearns Work Phone: 8(534)089-510698 [place] [address] 04-04-2023 10:30-0500 Respiratory rate 18 /min Dr. Molly Kearns Work Phone: 7(648)782-090498 [place] [address] 04-04-2023 10:30-0500 SaO2% (BldA) [Mass fraction] 99 % Dr. Molly Kearns Work Phone: 3(660)282-277798 [place] [address] 04-04-2023 10:30-0500 Systolic blood pressure 162 mm[Hg] Dr. Molly Kearns Work Phone: 3(384)231-413298 [place] [address] 03-18-2023 12:58-0500 Body mass index (BMI) [Ratio] 26.5 kg/m2 Dr. Molly Kearns Work Phone: 9(099)817-972798 [place] [address] 03-18-2023 12:58-0500 Body weight 83.[address] Molly Kearns Work Phone: 6(993)663-370198 [place] [address] 03-18-2023 12:58-0500 Diastolic blood pressure 79 mm[Hg] Dr. Molly Kearns Work Phone: 9(566)226-976898 [place] [address] 03-18-2023 12:58-0500 Heart rate 79 /min Dr. Molly Kearns Work Phone: 5(694)491-442398 [place] [address] 03-18-2023 12:58-0500 SaO2% (BldA) [Mass fraction] 96 % Dr. Molly Kearns Work Phone: [facility] 03-18-2023 12:58-0500 Systolic blood pressure 169 mm[Hg] Dr. Molly Kearns Work Phone: [facility] 10-26-2022 16:32-0400 Diastolic blood pressure 60 mm[Hg] Molly Kearns MD Work Phone: [facility] 10-26-2022 16:32-0400 Systolic blood pressure 138 mm[Hg] Molly Kearns MD Work Phone: [facility] 10-26-2022 15:22-0400 Body temperature 98.6 [degF] Molly Kearns MD Work Phone: [facility] 10-26-2022 15:22-0400 Body weight 82.56 kg Molly Kearns MD Work Phone: [facility] 10-26-2022 15:22-0400 Heart rate 89 /min Molly Kearns MD Work Phone: [facility] 10-26-2022 15:22-0400 Respiratory rate 18 /min Molly Kearns MD Work Phone: [facility] 10-26-2022 15:22-0400 SaO2% (BldA) [Mass fraction] 97 % Molly Kearns MD Work Phone: [facility] 10-23-2022 08:04-0400 Body temperature 98 [degF] Dr. Molly Kearns Work Phone: [facility] 10-23-2022 08:04-0400 Diastolic blood pressure 69 mm[Hg] Dr. Molly Kearns Work Phone: [facility] 10-23-2022 08:04-0400 Heart rate 70 /min Dr. Molly Kearns Work Phone: [facility] 10-23-2022 08:04-0400 Respiratory rate 16 /min Dr. Molly Kearns Work Phone: [facility] 10-23-2022 08:04-0400 SaO2% (BldA) [Mass fraction] 97 % Dr. Molly Kearns Work Phone: 4(630)557-371586 [place] [address] 10-23-2022 08:04-0400 Systolic blood pressure 136 mm[Hg] Dr. Molly Kearns Work Phone: 2(275)044-491498 [place] [address] 10-19-2022 16:00-0400 Inhaled oxygen flow rate 8 L/min Dr. Molly Kearns Work Phone: 4(605)065-711098 [place] [address] 10-19-2022 14:57-0400 Body height 177.[address] Molly Kearns Work Phone: 6(233)976-416798 [place] [address] 10-19-2022 14:57-0400 Body weight 85.[address] Molly Kearns Work Phone: 0(888)090-755998 [place] [address] 10-18-2022 19:55-0400 Body mass index (BMI) [Ratio] 27 kg/m2 Dr. Molly Kearns Work Phone: 7(197)728-087798 [place] [address] 10-18-2022 19:14-0400 Body temperature 97.6 [degF] Dr. Molly Kearns Work Phone: 7(386)068-729098 [place] [address] 10-18-2022 19:14-0400 Diastolic blood pressure 78 mm[Hg] Dr. Molly Kearns Work Phone: 1(934)715-101998 [place] [address] 10-18-2022 19:14-0400 Heart rate 78 /min Dr. Molly Kearns Work Phone: 5(310)674-407498 [place] [address] 10-18-2022 19:14-0400 Respiratory rate 17 /min Dr. Molly Kearns Work Phone: 5(675)361-828198 [place] [address] 10-18-2022 19:14-0400 SaO2% (BldA) [Mass fraction] 98 % Dr. Molly Kearns Work Phone: 0(931)762-428298 [place] [address] 10-18-2022 19:14-0400 Systolic blood pressure 137 mm[Hg] Dr. Molly Kearns Work Phone: 7(139)509-348298 [place] [address] 10-18-2022 13:54-0400 Body height 177.[address] Molly Kearns Work Phone: [facility] 10-18-2022 13:54-0400 Body mass index (BMI) [Ratio] 27.6 kg/m2 Dr. Molly Kearns Work Phone: [facility] 10-18-2022 13:54-0400 Body weight 87.[address] Molly Kearns Work Phone: [facility] 07-04-2022 16:49-0400 Body temperature 97.81 [degF] Molly Kearns MD Work Phone: [facility] 07-04-2022 16:49-0400 Body weight 85.73 kg Molly Kearns MD Work Phone: [facility] 07-04-2022 16:49-0400 Diastolic blood pressure 66 mm[Hg] Molly Kearns MD Work Phone: [facility] 07-04-2022 16:49-0400 Heart rate 82 /min Molly Kearns MD Work Phone: [facility] 07-04-2022 16:49-0400 Respiratory rate 18 /min Molly Kearns MD Work Phone: [facility] 07-04-2022 16:49-0400 SaO2% (BldA) [Mass fraction] 98 % Molly Kearns MD Work Phone: [facility] 07-04-2022 16:49-0400 Systolic blood pressure 132 mm[Hg] Molly Kearns MD Work Phone: [facility] 03-05-2022 17:21-0500 Diastolic blood pressure 60 mm[Hg] Molly Kearns MD Work Phone: [facility] 03-05-2022 17:21-0500 Systolic blood pressure 138 mm[Hg] Molly Kearns MD Work Phone: [facility] 03-05-2022 16:30-0500 Body weight 83.01 kg Molly Kearns MD Work Phone: [facility] 03-05-2022 16:30-0500 Heart rate 76 /min Molly Kearns MD Work Phone: [facility] 03-05-2022 16:30-0500 SaO2% (BldA) [Mass fraction] 97 % Molly Kearns MD Work Phone: [facility] 11-15-2021 15:10-0400 Body weight 86.18 kg Molly Kearns MD Work Phone: [facility] 11-15-2021 15:10-0400 Diastolic blood pressure 62 mm[Hg] Molly Kearns MD Work Phone: [facility] 11-15-2021 15:10-0400 Heart rate 75 /min Molly Kearns MD Work Phone: [facility] 11-15-2021 15:10-0400 SaO2% (BldA) [Mass fraction] 97 % Molly Kearns MD Work Phone: [facility] 11-15-2021 15:10-0400 Systolic blood pressure 126 mm[Hg] Molly Kearns MD Work Phone: [facility] Encounters Encounter Date Encounter Type Care Provider Facility Start: 01-13-2025 End: 01-13-2025 ambulatory MOLLY Sebastien KEARNS Facility:[facility] Start: 01-13-2025 Encounter for general adult medical examination without abnormal findings MOLLY KEARNS [facility] Start: 01-01-2025 End: 01-01-2025 Nursing evaluation of patient and report Mi Nurse Work Phone: Family Medicine [facility] Comment on above: Need for influenza vaccination (Primary Dx); Encounter for immunization Start: 01-01-2025 End: 01-01-2025 ambulatory MOLLY KEARNS Facility:[facility] Start: 12-28-2024 End: 12-28-2024 Telephone encounter Molly Kearns MD Work Phone: Internal Medicine Only Comment on above: Patient Question Start: 12-23-2024 End: 12-23-2024 ambulatory MOLLY KEARNS Facility:[facility] Start: 10-22-2024 End: 10-22-2024 Refill Molly Kearns MD Work Phone: Internal Medicine Only Comment on above: Refill Request Start: 10-12-2024 [...] Start: 07-24-2024 End: 07-24-2024 ambulatory [facility] Facility:[facility] Start: 07-02-2024 End: 07-02-2024 Telephone encounter Francisco Sanchez MD Work Phone: Gastroenterology Comment on above: Orders (fibroscan) Start: 06-22-2024 End: 06-22-2024 Office outpatient visit 25 minutes Molly Kearns MD Work Phone: Internal Medicine Only Comment on above: Type 2 diabetes mellitus without complic ation, without long-term current use of insulin (HCC) (Primary Dx); Essential hypertension; Metabolic dysfunction-associated steatotic liver disease (MASLD); Elevated ferritin; 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); Encounter for long-term current use of medication; Need for vaccination Start: 06-22-2024 End: 06-22-2024 ambulatory MOLLY KEARNS Facility:[facility] Start: 06-05-2024 End: 06-05-2024 ambulatory FRANCISCO SANCHEZ Facility:[facility] Start: 06-01-2024 End: 06-01-2024 Refill Molly Kearns MD Work Phone: [facility] Comment on above: Refill Request Start: 03-25-2024 End: 03-25-2024 Patient encounter procedure Francisco Sanchez MD Work Phone: Gastroenterology Comment on above: Liver disease (Primary Dx) Start: 03-25-2024 End: 03-25-2024 ambulatory FRANCISCO SANCHEZ Facility:[facility] Start: 03-12-2024 End: 03-12-2024 ambulatory Mitch Hernandez DO Work Phone: Hematology/Oncology Comment on above: Hypogammaglobulinemia (HCC) (Primary Dx) Start: 03-12-2024 End: 03-12-2024 Patient encounter procedure Mitch Hernandez DO Work Phone: Hematology/Oncology Start: 03-09-2024 End: 03-09-2024 Telephone encounter Jean Sylvester APRN.CNP Work Phone: Internal [facility] Comment on above: Results Start: 03-06-2024 End: 03-06-2024 ambulatory MOLLY ZAFARMICHOACANO Facility:[facility] Start: 02-27-2024 End: 03-02-2024 Telephone encounter Molly Kearns MD Work Phone: Internal Medicine [facility] Comment on above: Patient Question Start: 02-07-2024 End: 02-07-2024 ambulatory Molly Sebastien Zafarmichoacano Facility:[facility] Start: 01-24-2024 End: 01-24-2024 ambulatory Immunization Clinic Nurse [facility]esh Work Phone: [facility] Start: 01-24-2024 End: 01-24-2024 Patient encounter procedure Immunization Clinic Nurse Rajesh Work Phone: [facility] Start: 12-25-2023 End: 12-26-2023 Refsulaiman Kearns MD Work Phone: Internal Medicine [facility] Comment on above: Refill Request Start: 12-02-2023 End: 12-02-2023 Patient encounter status Molly Kearns MD Work Phone: [facility] Work Phone: Start: 12-02-2023 End: 12-02-2023 [...] Molly Kearns MD Work Phone: Internal Medicine Only Comment on above: Insurance Authorization Start: 11-26-2023 Refill Molly Kearns MD Work Phone: Internal Medicine [facility] Comment on above: Refill Request Start: 11-08-2023 Telephone encounter Molly Kearns MD Work Phone: Internal Medicine Only Comment on above: Insurance Authorization Start: 11-05-2023 Telephone encounter Molly Kearns MD Work Phone: Internal Medicine Only Comment on above: Refill Request Start: 09-26-2023 [...] Jean Sylvester APRN.CNP Work Phone: Internal Medicine Only Comment on above: Type 2 diabetes mellitus without complic ation, with long-term current use of insulin (HCC) (Primary Dx); Essential hypertension; 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 Molly Kearns Work Phone: [facility] Work Phone: Start: 04-19-2023 End: 04-19-[address] Molly Kearns Work Phone: [facility] Work Phone: Start: 04-19-2023 End: 04-19-2023 ambulatory Ranjith Sarmiento Facility:[facility] Start: 04-04-2023 End: 04-04-[address] Molly Kearns Work Phone: [facility] Work Phone: Start: 04-04-2023 End: 04-04-2023 ambulatory [place]ns [place] [place]: 03-22-2023 Telephone encounter Molly Kearns MD Work Phone: Internal Medicine Only Comment on above: Lab Orders Start: 03-18-2023 End: 03-18-[address] Molly Kearns Work Phone: [facility] Work Phone: Start: 03-18-2023 End: 03-18-2023 ambulatory Molly Kearns Facility:[facility] Start: 01-18-2023 End: 01-18-2023 ambulatory Immunization Clinic Nurse Rajesh Work Phone: Family Medicine Only Start: 11-13-2022 Telephone encounter Molly Kearns MD Work Phone: Internal Medicine Only Comment on above: send copy results of CMP to Dr Lara Start: 10-26-2022 End: 10-26-2022 Office outpatient visit 40 minutes Molly Kearns MD Work Phone: Internal Medicine Only Comment on above: Type 2 diabetes mellitus [...] encounter Molly Kearns MD Work Phone: [facility] Comment on above: Hospital F/U Start: 10-23-2022 Non-patient / Non-visit Dr. Molly Kearns Work Phone: [facility] Start: 10-22-2022 Non-patient / Non-visit Dr. Molly Kearns Work Phone: [facility] Start: 10-21-2022 Non-patient / Non-visit Dr. Molly Kearns Work Phone: [facility] Start: 10-21-2022 Non-patient / Non-visit Dr. Molly Kearns Work Phone: [facility] Start: 10-20-2022 Non-patient / Non-visit Dr. Molly Kearns Work Phone: [facility] Start: 10-20-2022 Non-patient / Non-visit Dr. Molly Kearns Work Phone: [facility] Start: 10-19-2022 Non-patient / Non-visit Dr. Molly Kearns Work Phone: [facility] Start: 10-18-2022 Non-patient / Non-visit Dr. Molly Kearns Work Phone: [facility] Start: 10-18-2022 End: 10-23-2022 Evaluation and management of inpatient Dr. [facility] Work Phone: Start: 07-07-2022 Refill Molly Kearns MD Work Phone: Internal Medicine Only Comment on above: Refill Request Start: 07-04-2022 End: 07-04-2022 Office outpatient visit 25 minutes Molly Kearns MD Work Phone: Internal Medicine Only Comment on above: Type 2 diabetes mellitus [...] Phone: Internal Medicine [facility] Comment on above: Elevated ferritin (Primary Dx); [...] DTaP,Tdap,Td Vaccine (3 - Td or Tdap) [facility] Start: 12-01-2028 Prostate specific antigen measurement Prostate Cancer Screening Discussion [facility] Start: 12-23-2025 Hepatitis B surface antibody level LDL Cholesterol [facility] Start: 06-25-2025 End: 06-25-2025 Patient encounter procedure 06/25/2025 4:00 PM EST Office Visit Internal Medicine [facility] [address] [facility] [place] [address] Molly Kearns MD [address] [place] [address] 6 mo f/u Internal Medicine Only Comment on above: 6 mo f/u Start: 06-22-2025 Annual PCP Team Chronic Disease Visit Annual PCP Team Chronic Disease Visit [facility] Start: 06-22-2025 Hemoglobin A1c measurement HbA1C [facility] Start: 05-27-2025 Glaucoma screening Dilated Retinal Exam [facility] Start: 03-06-2025 Hepatitis B screening Urine Albumin:Creatinine Ratio [facility] Start: 01-19-2025 End: 01-19-2025 Patient encounter procedure 01/19/2025 2:40 PM EDT Office Visit Internal Medicine Only [address] [place] [address] Bety Bajwa APRN.ANTHROPOLOGY [employer]ACULTY MEMBER [address] [facility] [place] [address] Yearly follow up Internal Medicine [facility] Comment on above: Yearly follow up Start: 01-01-2025 End: 01-01-2025 Nursing evaluation of patient and report 01/01/2025 3:00 PM EDT Nurse Visit Family Medicine [facility] [address] [facility] [place] [address] Nurse, [place] [address] [facility] [place] [address] 3rd Hep/?flu & COVID Booster [facility] Comment on above: 3rd Hep/?flu & COVID Booster Start: 12-28-2024 End: 12-28-2024 Patient encounter procedure 12/28/2024 4:20 PM EDT Office Visit Internal Medicine [facility] [address] [facility] [place] [address] Molly Kearns MD [address] [facility] [place] [address] Yearly follow up Internal Medicine [facility] Comment on above: Yearly follow up Start: 12-24-2024 Hepatitis B Vaccine (3 of 3 - Hep B Twinrix 3-dose series) Hepatitis B Vaccine (3 of 3 - Hep B Twinrix 3-dose series) [facility] Start: 12-21-2024 Influenza vaccination Influenza Vaccine (#1) [facility] Start: 12-19-2024 Hepatitis a & b vaccine hepa-hepb adult im HEP A-HEP B VACCINE (TWINRIX) Immunization/Injection Routine Need for vaccination Expected: 12/19/2024 (Approximate) [facility] Comment on above: Expected: 12/19/2024 (Approximate) Start: 12-01-2024 Annual PCP Team Chronic Disease Visit Annual PCP Team Chronic Disease Visit [facility] Start: 12-01-2024 BP Controlled (<130/80) BP Controlled (<130/80) [facility] Start: 11-22-2024 End: 02-21-2025 CBC panel - Blood by Automated count COMPLETE BLOOD COUNT Lab Routine Essential hypertension Expected: 11/22/2024 (Approximate), Expires: 02/21/2025 [facility] Comment on above: Expected: 11/22/2024 (Approximate), Expi res: 02/21/2025 Start: 11-22-2024 End: 02-21-2025 Comprehensive metabolic 2000 panel - Serum or Plasma COMPREHENSIVE METABOLIC PANEL Lab Routine Type 2 diabetes mellitus without complication, without long-term current use of insulin (HCC) Essential hypertension Expected: 11/22/2024 (Approximate), Expires: 02/21/2025 [facility] Comment on above: Expected: 11/22/2024 (Approximate), Expi res: 02/21/2025 Start: 11-22-2024 End: 02-21-2025 Ferritin [Mass/volume] in Serum or Plasma FERRITIN Lab Routine Elevated ferritin Expected: 11/22/2024 (Approximate), Expires: 02/21/2025 [facility] Comment on above: Expected: 11/22/2024 (Approximate), Expi res: 02/21/2025 Start: 11-22-2024 End: 02-21-2025 Hemoglobin A1c in Blood HEMOGLOBIN A1C Lab Routine Type 2 diabetes mellitus without complication, without long-term current use of insulin (HCC) Expected: 11/22/2024 (Approximate), Expires: 02/21/2025 [facility] Comment on above: Expected: 11/22/2024 (Approximate), Expi res: 02/21/2025 Start: 11-22-2024 End: 02-21-2025 Iron and Iron binding capacity panel - Serum or Plasma IRON AND TIBC Lab Routine Elevated ferritin Expected: 11/22/2024 (Approximate), Expires: 02/21/2025 [facility] Comment on above: Expected: 11/22/2024 (Approximate), Expi res: 02/21/2025 Start: 11-22-2024 End: 02-21-2025 Lipid 1996 panel - Serum or Plasma LIPID PANEL BASIC Lab Routine Type 2 diabetes mellitus without complication, without long-term current use of insulin (HCC) Expected: 11/22/2024 (Approximate), Expires: 02/21/2025 [facility] Comment on above: Expected: 11/22/2024 (Approximate), Expi res: 02/21/2025 Start: 09-03-2024 Hemoglobin A1c measurement HbA1C [facility] Start: 08-15-2024 Annual PCP Team Chronic Disease Visit Annual PCP Team Chronic Disease Visit [facility] Start: 08-15-2024 Anxiety Screening Anxiety Screening [facility] Start: 08-15-2024 Depression Screening Depression Screening [facility] Start: 08-15-2024 Diabetic foot examination Diabetic Foot Exam [facility] Start: 08-08-2024 Hepatitis B surface antibody level LDL Cholesterol [facility] Start: 07-24-2024 End: 07-24-2024 Nursing evaluation of patient and report 07/24/2024 3:45 PM EDT Nurse Visit Family Medicine [facility] [address] [place] [address] Nurse, [place] [address] [place] [address] hep b Family Medicine [facility] Comment on above: hep b Start: 07-23-2024 COLOGUARD (FIT-DNA) COLOGUARD (FIT-DNA) [facility] Start: 07-23-2024 COLORECTAL CANCER SCREENING COLORECTAL CANCER SCREENING [facility] Start: 07-23-2024 Hepatitis a & b vaccine hepa-hepb adult im HEP A-HEP B VACCINE (TWINRIX) Immunization/Injection Routine Need for vaccination Expected: 07/23/2024 (Approximate) [facility] Work Phone: Comment on above: Expected: 07/23/2024 (Approximate) Start: 07-23-2024 End: 07-23-2024 Orders Only 07/23/2024 Orders Only Internal Medicine Only [address] [facility] [place] [address] Molly Kearns MD [address] [facility] [place] [address] Need for vaccination Internal Medicine [facility] Comment on above: Need for vaccination Start: 07-23-2024 Screening for malignant neoplasm of colon [facility] Start: 07-20-2024 Hepatitis B Vaccine (2 of 3 - Hep B Twinrix 3-dose series) Hepatitis B Vaccine (2 of 3 - Hep B Twinrix 3-dose series) [facility] Start: 06-22-2024 End: 06-22-2024 Patient encounter procedure 06/22/2024 4:00 PM EST Office Visit Internal Medicine [facility] [address] [facility] [place] [address] Molly Kearns MD [address] [facility] [place] [address] 6 month follow up Internal Medicine [facility] Comment on above: 6 month follow up Start: 06-05-2024 End: 06-05-2024 ambulatory 06/05/2024 7:45 AM EST Results Only Rajesh [facility] [address] [place] [address] Routine [facility] Comment on above: Routine Start: 05-29-2024 Hemoglobin A1c measurement HbA1C [facility] Start: 05-08-2024 Glaucoma screening Dilated Retinal Exam [facility] Start: 04-01-2024 Annual PCP Team Chronic Disease Visit Annual PCP Team Chronic Disease Visit [facility] Start: 03-25-2024 Hepatitis B surface antibody level LDL Cholesterol [facility] Start: 03-25-2024 End: 03-25-2024 Patient encounter procedure 03/25/2024 10:55 AM EST Office Visit Gastroenterology [address] [address] Francisco Sanchez MD [address] [place] [address] 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] Gastroenterology Comment on above: Autoimmune hepatitis treated with steroi ds (HCC) [K75.4] Start: 03-12-2024 End: 03-12-2024 ambulatory 03/12/2024 10:10 AM EST Visit (SP) Office Hematology/Oncology [address] [place] [id number] Mitch Hernandez DO [address] [place] [address] DISPLAY DESIGNER/HYPOGAMMAGLOBULINEMIA/RE F JEAN SYLVESTER* Hematology/Oncology Comment on above: DISPLAY DESIGNER/HYPOGAMMAGLOBULINEMIA/REF JEAN BARKER R* Start: 03-06-2024 End: 03-06-2024 ambulatory 03/06/2024 8:00 AM EST Results Only [facility] [address] [place] [address] Labs for Type 2 diabetes mellitus without complication, with long-term current use of insulin (HCC) [E11.9, Z79.4] [facility] Comment on above: Labs for Type 2 diabetes mellitus withou t complication, with long-term current use of insulin (HCC) [E11.9, Z79.4] Start: 03-02-2024 End: 06-01-2024 IMMUNOGLOBULINS,IGG,IG A,IGM IMMUNOGLOBULINS,IGG,IGA,IGM Lab Routine Hypogammaglobulinemia (HCC) Expected: 03/02/2024, Expires: 06/01/2024 [facility] Work Phone: Comment on above: Expected: 03/02/2024, Expires: Start: 02-26-2024 End: 03-27-2024 Hepatic function 2000 panel - Serum or Plasma HEPATIC FUNCTION PNL Lab Routine Liver disease Expected: 02/26/2024, Expires: 03/27/2024 [facility] Work Phone: Comment on above: Expected: 02/26/2024, Expires: Start: 02-21-2024 End: 05-22-2024 Microalbumin/Creatinin e [Mass Ratio] in Urine ALBUMIN/CREATININE RATIO, URINE Lab Routine Type 2 diabetes mellitus without complication, with long-term current use of insulin (HCC) Expected: 02/21/2024 (Approximate), Expires: 05/22/2024 [facility] Work Phone: Comment on above: Expected: 02/21/2024 (Approximate), Expi res: 05/22/2024 Start: 02-08-2024 Hemoglobin A1c measurement HbA1C [facility] Start: 12-22-2023 Covid-19 Vaccine () Covid-19 Vaccine () [facility] Start: 12-22-2023 Influenza [facility] Start: 12-02-2023 End: 12-02-2023 Patient encounter procedure 12/02/2023 3:40 PM EDT Office Visit Internal Medicine Rajesh [address] [place] [address] Molly Kearns MD [address] [place] [address] follow up Internal Medicine Rajesh Comment on above: follow up Start: 11-27-2023 End: 11-27-2023 ambulatory 11/27/2023 7:30 AM EDT Results Only Rajesh [place] [facility] Laboratory [address] [place] [address] Rajesh [place] [facility] Start: 11-15-2023 Hepatitis B screening URINE ALBUMIN:CREATININE RATIO [facility] Start: 11-15-2023 Hepatitis B surface antibody level LDL CHOLESTEROL [facility] Start: 11-03-2023 ANNUAL PCP TEAM CHRONIC DISEASE VISIT ANNUAL PCP TEAM CHRONIC DISEASE VISIT [facility] Start: 10-27-2023 ANNUAL PCP TEAM CHRONIC DISEASE VISIT ANNUAL PCP TEAM CHRONIC DISEASE VISIT [facility] Start: 09-26-2023 End: 09-26-2023 Patient encounter procedure 09/26/2023 10:30 AM EDT Office Visit Gastroenterology [address] [address] Francisco Sanchez MD [address] [place] [address] autoimmune hepititis Gastroenterology Comment on above: autoimmune hepititis Start: 09-26-2023 End: 09-26-2023 ambulatory 09/26/2023 9:20 AM EDT Procedure Gastroenterology [address] [address] fibroscan Gastroenterology Comment on above: fibroscan Start: 09-24-2023 Hemoglobin A1c measurement HbA1C [facility] Start: 07-05-2023 ANNUAL PCP TEAM CHRONIC DISEASE VISIT ANNUAL PCP TEAM CHRONIC DISEASE VISIT [facility] Start: 06-30-2023 Hepatitis B surface antibody level LDL CHOLESTEROL [facility] Start: 05-17-2023 Hemoglobin A1c/Hemoglobin.total in Blood HBA1C [facility] Start: 04-30-2023 Hepatitis C antibody, confirmatory test DILATED RETINAL EXAM [facility] Start: 04-22-2023 Behavioral Health Screening Behavioral Health Screening [facility] Start: 04-22-2023 Depression Assessment Depression Assessment [facility] Start: 03-19-2023 Patient referral [facility] Work Phone: Start: 03-05-2023 ANNUAL PCP TEAM CHRONIC DISEASE VISIT ANNUAL PCP TEAM CHRONIC DISEASE VISIT [facility] Start: 03-02-2023 Hepatitis B surface antibody level LDL CHOLESTEROL [facility] Start: 12-30-2022 Hemoglobin A1c/Hemoglobin.total in Blood HBA1C [facility] Start: 12-21-2022 Influenza vaccination INFLUENZA (#1) [facility] Start: 11-15-2022 ANNUAL PCP TEAM CHRONIC DISEASE VISIT ANNUAL PCP TEAM CHRONIC DISEASE VISIT [facility] Start: 11-15-2022 BP CONTROLLED (<130/80) BP CONTROLLED (<130/80) [facility] Start: 11-15-2022 HEPATITIS B (1 of 3 - 3-dose series) HEPATITIS B (1 of 3 - 3-dose series) [facility] Comment on above: Postponed from 1966 (Declined at t his time) Start: 11-15-2022 PNEUMOCOCCAL (2 - PCV) PNEUMOCOCCAL (2 - PCV) [facility] Comment on above: Postponed from 06/13/2012 (Declined at t his time) Start: 11-07-2022 Hepatitis B screening URINE ALBUMIN:CREATININE RATIO [facility] Start: 11-07-2022 Hepatitis B surface antibody level LDL CHOLESTEROL [facility] Start: 10-23-2022 Patient discharge [facility] Start: 10-22-2022 Consultation [facility] Start: 10-22-2022 Procedure [facility] Start: 10-22-2022 Oxygen therapy [facility] Start: 10-22-2022 Vital signs measurements [facility] Start: 10-22-2022 Dietary regime [facility] Start: 10-22-2022 [facility] Start: 10-22-2022 [facility] Start: 10-21-2022 Procedure [facility] Start: 10-20-2022 Procedure [facility] Start: 10-20-2022 Serum immunofixation [facility] Start: 10-20-2022 [facility] Start: 10-20-2022 End: 12-20-2022 ALBUMIN/CREAT RATIO RND UR ALBUMIN/CREAT RATIO RND UR Lab Routine Type 2 diabetes mellitus without complication, without long-term current use of insulin (HCC) Encounter for long-term current use of medication Expected: 10/20/2022 (Approximate), Expires: 12/20/2022 [facility] Work Phone: Comment on above: Expected: 10/20/2022 (Approximate), Expi res: 12/20/2022 Start: 10-20-2022 End: 12-20-2022 CBC panel - Blood by Automated count CBC Lab Routine Essential hypertension Encounter for long-term current use of medication Expected: 10/20/2022 (Approximate), Expires: 12/20/2022 [facility] Work Phone: Comment on above: Expected: 10/20/2022 (Approximate), Expi res: 12/20/2022 Start: 10-20-2022 End: 12-20-2022 Cobalamin (Vitamin B12) [Mass/volume] in Serum or Plasma VITAMIN B12 BLOOD Lab Routine Encounter for long-term current use of medication Expected: 10/20/2022 (Approximate), Expires: 12/20/2022 [facility] Work Phone: Comment on above: Expected: 10/20/2022 (Approximate), Expi res: 12/20/2022 Start: 10-20-2022 End: 12-20-2022 Comprehensive metabolic 2000 panel - Serum or Plasma COMP METABOLIC PANEL Lab Routine Type 2 diabetes mellitus without complication, without long-term current use of insulin (HCC) Essential hypertension Encounter for long-term current use of medication Expected: 10/20/2022 (Approximate), Expires: 12/20/2022 [facility] Work Phone: Comment on above: Expected: 10/20/2022 (Approximate), Expi res: 12/20/2022 Start: 10-20-2022 End: 12-20-2022 Ferritin [Mass/volume] in Serum or Plasma FERRITIN BLD Lab Routine Elevated ferritin Encounter for long-term current use of medication Expected: 10/20/2022 (Approximate), Expires: 12/20/2022 [facility] Work Phone: Comment on above: Expected: 10/20/2022 (Approximate), Expi res: 12/20/2022 Start: 10-20-2022 End: 12-20-2022 Folate [Mass/volume] in Serum or Plasma FOLATE SERUM Lab Routine Encounter for long-term current use of medication Expected: 10/20/2022 (Approximate), Expires: 12/20/2022 [facility] Work Phone: Comment on above: Expected: 10/20/2022 (Approximate), Expi res: 12/20/2022 Start: 10-20-2022 End: 12-20-2022 Hemoglobin A1c in Blood HGB A1C Lab Routine Type 2 diabetes mellitus without complication, without long-term current use of insulin (HCC) Encounter for long-term current use of medication Expected: 10/20/2022 (Approximate), Expires: 12/20/2022 [facility] Work Phone: Comment on above: Expected: 10/20/2022 (Approximate), Expi res: 12/20/2022 Start: 10-20-2022 End: 12-20-2022 Iron and Iron binding capacity panel - Serum or Plasma IRON + TIBC Lab Routine Elevated ferritin Encounter for long-term current use of medication Expected: 10/20/2022 (Approximate), Expires: 12/20/2022 [facility] Work Phone: Comment on above: Expected: 10/20/2022 (Approximate), Expi res: 12/20/2022 Start: 10-20-2022 End: 12-20-2022 Lipid 1996 panel - Serum or Plasma LIPID PANEL BASIC Lab Routine Mixed hyperlipidemia Encounter for long-term current use of medication Expected: 10/20/2022 (Approximate), Expires: 12/20/2022 [facility] Work Phone: Comment on above: Expected: 10/20/2022 (Approximate), Expi res: 12/20/2022 Start: 10-19-2022 [facility] Start: 10-19-2022 Fluoroscopic guidance O[facility]R. Fluoro for [facility] Start: 10-19-2022 RF Less than 1 hour [facility] Start: 10-19-2022 Referral to gastroenterology service [facility] Start: 10-19-2022 Lipase measurement [facility] Start: 10-19-2022 [facility] Start: 10-18-2022 End: 10-18-2022 Following clinical pathway protocol [facility] Start: 10-18-2022 Application of intermittent pneumatic compression device [facility] Start: 10-18-2022 Admission procedure [facility] Start: 10-18-2022 [facility] Start: 08-30-2022 Hemoglobin A1c/Hemoglobin.total in Blood HBA1C [facility] Start: 05-18-2022 End: 07-18-2022 CBC panel - Blood by Automated count CBC Lab Routine Essential hypertension Expected: 05/18/2022 (Approximate), Expires: 07/18/2022 [facility] Work Phone: Comment on above: Expected: 05/18/2022 (Approximate), Expi res: 07/18/2022 Start: 05-18-2022 End: 07-18-2022 Comprehensive metabolic 2000 panel - Serum or Plasma COMP METABOLIC PANEL Lab Routine Type 2 diabetes mellitus without complication, without long-term current use of insulin (HCC) Essential hypertension NICOLE (nonalcoholic steatohepatitis) Expected: 05/18/2022 (Approximate), Expires: 07/18/2022 [facility] Work Phone: Comment on above: Expected: 05/18/2022 (Approximate), Expi res: 07/18/2022 Start: 05-18-2022 End: 07-18-2022 Ferritin [Mass/volume] in Serum or Plasma FERRITIN BLD Lab Routine Elevated ferritin Expected: 05/18/2022 (Approximate), Expires: 07/18/2022 [facility] Work Phone: Comment on above: Expected: 05/18/2022 (Approximate), Expi res: 07/18/2022 Start: 05-18-2022 End: 07-18-2022 Hemoglobin A1c in Blood HGB A1C Lab Routine Type 2 diabetes mellitus without complication, without long-term current use of insulin (HCC) Expected: 05/18/2022 (Approximate), Expires: 07/18/2022 [facility] Work Phone: Comment on above: Expected: 05/18/2022 (Approximate), Expi res: 07/18/2022 Start: 05-18-2022 End: 07-18-2022 Iron and Iron binding capacity panel - Serum or Plasma IRON + TIBC Lab Routine Elevated ferritin Expected: 05/18/2022 (Approximate), Expires: 07/18/2022 [facility] Work Phone: Comment on above: Expected: 05/18/2022 (Approximate), Expi res: 07/18/2022 Start: 05-18-2022 End: 07-18-2022 Lipid 1996 panel - Serum or Plasma LIPID PANEL BASIC Lab Routine Mixed hyperlipidemia Expected: 05/18/2022 (Approximate), Expires: 07/18/2022 [facility] Work Phone: Comment on above: Expected: 05/18/2022 (Approximate), Expi res: 07/18/2022 Start: 05-10-2022 Hemoglobin A1c/Hemoglobin.total in Blood HBA1C [facility] Start: 04-28-2022 Hepatitis C antibody, confirmatory test DILATED RETINAL EXAM [facility] Start: 04-01-2022 Urine microalbumin profile [facility] Start: 01-14-2022 Hzv zoster vacc recombinant adjuvanted im njx ZOSTER VACC RECOMBINANT,IM Immunization/Injection Routine Need for vaccination Expected: 01/14/2022 (Approximate) [facility] Work Phone: Comment on above: Expected: 01/14/2022 (Approximate) Start: 01-10-2022 SHINGRIX VACCINE (2 of 2) SHINGRIX VACCINE (2 of 2) [facility] Start: 12-21-2021 Influenza vaccination INFLUENZA (#1) [facility] Start: 2021 PROSTATE CANCER SCREENING DISCUSSION PROSTATE CANCER SCREENING DISCUSSION [facility] Start: 2021 Prostate specific antigen measurement Prostate Cancer Screening Discussion [facility] Start: 10-22-2021 COVID-19 VACCINE (5 - Booster for Moderna series) COVID-19 VACCINE (5 - Booster for Moderna series) [facility] Start: 04-22-2021 DEPRESSION ASSESSMENT DEPRESSION ASSESSMENT [facility] Start: 05-19-2020 3 comp foot exam completed DIABETIC FOOT EXAM [facility] Start: 05-19-2020 Diabetic foot examination Diabetic Foot Exam [facility] Start: 06-01-2019 FECAL OCCULT BLOOD FECAL OCCULT BLOOD [facility] Start: 06-01-2019 Screening for malignant neoplasm of colon Fecal Occult Blood [facility] Start: 06-13-2012 PNEUMOCOCCAL (2 - PCV) PNEUMOCOCCAL (2 - PCV) [facility] ic Start: 06-13-2012 Pneumococcal vaccination [facility] Start: 11-12-2011 Colonoscopy COLONOSCOPY [facility] Start: 11-12-[address] COLONOGRAPHY [facility] Start: 11-12-2011 Screening for malignant neoplasm of colon [facility] Start: 11-12-2011 SIGMOIDOSCOPY SIGMOIDOSCOPY [facility] Start: 1985 Hepatitis B Vaccine (1 of 3 - 19+ 3-dose series) Hepatitis B Vaccine (1 of 3 - 19+ 3-dose series) [facility] Start: 1984 BP CONTROLLED (<130/80) BP CONTROLLED (<130/80) [facility] Start: 1966 HEPATITIS B (1 of 3 - 3-dose series) HEPATITIS B (1 of 3 - 3-dose series) [facility] Start: 1966 Hepatitis B Vaccine (1 of 3 - 3-dose series) Hepatitis B Vaccine (1 of 3 - 3-dose series) [facility] Alanine aminotransferase [Enzymatic activity/volume] in Serum or Plasma [facility] Albumin [Mass/volume ] in Serum or Plasma [facility] Albumin [Moles/volum e] in Serum or Plasma [facility] Albumin/Globulin ratio [facility] Alkaline phosphatase [Enzymatic activity/volume] in Serum or Plasma [facility] Anion gap measurement [facility] Antibody to lupus [place] protein measurement [facility] Antibody to SS-A measurement [facility] Aspartate aminotransferase [Enzymatic activity/volume] in Serum or Plasma [facility] Bilirubin, total measurement [facility] BUN/Creatinine ratio [facility] Calcium [Mass/volume ] in Serum or Plasma [facility] Carbon dioxide, tota l [Moles/volume] in Serum or Plasma [facility] End: 03-21-2024 CBC panel - Blood by Automated count CBC Lab Routine Encounter for long-term current use of medication Essential hypertension Every 3 months for 4 Occurrences starting 03/22/2023 until 03/21/2024 [facility] Work Phone: Comment on above: Every 3 months for 4 Occurrences startin g 03/22/2023 until 03/21/2024 Centromere protein B Ab [Units/volume] in Serum [facility] Chloride [Moles/volume] in Serum or Plasma [facility] Chromatin Ab [Units/volume] in Serum or Plasma [facility] End: 03-21-2024 Comprehensive metabolic 2000 panel - Serum or Plasma COMP METABOLIC PANEL Lab Routine Encounter for long-term current use of medication Type 2 diabetes mellitus with hyperglycemia, with long-term current use of insulin (HCC) Essential hypertension Every 3 months for 4 Occurrences starting 03/22/2023 until 03/21/2024 [facility] Work Phone: Comment on above: Every 3 months for 4 Occurrences startin g 03/22/2023 until 03/21/2024 Creatinine [Moles/volume] in Serum or Plasma [facility] Cytomegalovirus IgG antibody measurement [facility] Cytomegalovirus IgM antibody assay [facility] DNA double strand Ab [Units/volume] in Serum [facility] Electrophoresis: [id number] [facility] Electrophoresis: jeffrey ma globulin [facility] Cassandra Smith virus capsid IgG Ab [Units/volume] in Serum [facility] Cassandra Smith virus capsid IgM Ab [Units/volume] in Serum [facility] Cassandra Smith virus nuclear IgG Ab [Units/volume] in Cerebral spinal fluid [facility] Cassandra-Smith virus serologic test [facility] End: 03-21-2024 Ferritin [Mass/volume] in Serum or Plasma FERRITIN BLD Lab Routine Elevated ferritin Encounter for long-term current use of medication Every 3 months for 4 Occurrences starting 03/22/2023 until 03/21/2024 [facility] Work Phone: Comment on above: Every 3 months for 4 Occurrences startin g 03/22/2023 until 03/21/2024 Globulin measurement [facility] Glucose [Mass/volume ] in Serum or Plasma [facility] Hematocrit [Volume Fraction] of Blood [facility] Hemoglobin [Mass/volume] in Blood [facility] End: 03-21-2024 Hemoglobin A1c in Blood HGB A1C Lab Routine Encounter for long-term current use of medication Type 2 diabetes mellitus with hyperglycemia, with long-term current use of insulin (HCC) Every 3 months for 4 Occurrences starting 03/22/2023 until 03/21/2024 [facility] Work Phone: Comment on above: Every 3 months for 4 Occurrences startin g 03/22/2023 until 03/21/2024 IgA [Mass/volume] in Serum or Plasma [facility] IgG [Mass/volume] in Serum or Plasma [facility] IgG subclass 1 [Mass/volume] in Serum [facility] IgG subclass 2 [Mass/volume] in Serum [facility] IgG subclass 3 [Mass/volume] in Serum [facility] IgG subclass 4 [Mass/volume] in Serum [facility] IgM [Mass/volume] in Serum or Plasma [facility] Imaging of liver [facility] End: 03-21-2024 Iron and Iron binding capacity panel - Serum or Plasma IRON + TIBC Lab Routine Elevated ferritin Encounter for long-term current use of medication Every 3 months for 4 Occurrences starting 03/22/2023 until 03/21/2024 [facility] Work Phone: Comment on above: Every 3 months for 4 Occurrences startin g 03/22/2023 until 03/21/2024 Ligia-1 extractable nuclear Ab [Units/volume] in Serum [facility] Leukocytes [#/volume ] in Blood [facility] End: 03-21-2024 Lipid 1996 panel - Serum or Plasma LIPID PANEL BASIC Lab Routine Encounter for long-term current use of medication Mixed hyperlipidemia Every 3 months for 4 Occurrences starting 03/22/2023 until 03/21/2024 [facility] Work Phone: Comment on above: Every 3 months for 4 Occurrences startin g 03/22/2023 until 03/21/2024 Magnesium [Mass/volume] in Serum or Plasma [facility] Mean corpuscular hemoglobin concentration determination [facility] Mean corpuscular hemoglobin determination [facility] Measurement of renal function [facility] Mitochondria Ab [Presence] in Serum [facility] Neutrophil count [facility] Neutrophil cytoplasm ic Ab.classic [Units/volume] in Serum [facility] Neutrophil percent differential count [facility] P-ANCA measurement [facility] Parvovirus B19 IgG A b [Units/volume] in Serum by Immunoassay [facility] Parvovirus B19 IgM A b [Units/volume] in Serum by Immunoassay [facility] Patient Education ISRAEL MAHER Biopsy Liver [place] WOOD RN Procedural Sedation [facility] Work Phone: Patient referral [facility] Work Phone: Platelets [#/volume] in Blood [facility] Potassium [Moles/volume] in Serum or Plasma [facility] Procedure [facility] Procedure [facility] Protein electrophoresis panel - Serum or Plasma [facility] Red blood cell count [facility] Red cell distributio n width determination [facility] SCL-70 extractable nuclear Ab [Units/volume] in Serum by Immunoassay [facility] Serum protein electrophoresis [facility] Cline extractable nuclear Ab [Presence] in Serum [facility] Smooth muscle Ab [Presence] in Serum [facility] Sodium [Moles/volume ] in Serum or Plasma [facility] Total protein measurement [facility] Transferrin [Mass/volume] in Serum or Plasma [facility] Urea nitrogen [Mass/volume] in Serum or Plasma [facility] Immunizations Immunization Date Immunization Notes Care Provider Fa cili 01-01-2025 hepatitis A and hepatitis B vaccine Nd Nurse Work Phone: [facility] 01-01-2025 influenza, seasonal, injectable, preservative free Mi Nurse Work Phone: [facility] 07-24-2024 hepatitis A and hepatitis B vaccine Nd Nurse Work Phone: [facility] 06-22-2024 hepatitis A and hepatitis B vaccine Francisco Sanchez MD Work Phone: [facility] 01-24-2024 COVID-19 vaccine, ag e 12+ yr ([facility]) Immunization Rajesh Work Phone: [facility] 01-24-2024 influenza, seasonal, injectable Immunization Only Work Phone: [facility] 01-24-2024 influenza virus vaccine, unspecified formulation Molly Kearns MD Work Phone: [facility] 08-16-2023 pneumococcal Conjuga te, unspecified formulation Jean Sylvester APRN.[employer] Work Phone: [facility] Work Phone: 08-16-2023 pneumococcal conjuga te (PCV20) vaccine, 20 valent (PREVNAR 20) Jean Sylvester APRN.[employer] Work Phone: [facility] 04-01-2023 tetanus toxoid, redu denisse diphtheria toxoid, and acellular pertussis vaccine, adsorbed Molly Kearns MD Work Phone: [facility] Work Phone: 01-18-2023 COVID-19 vaccine, ag e 12+ yr, season (Jamba!-Corvil) Immunization Only Work Phone: [facility] Work Phone: 01-18-2023 influenza, injectabl e, quadrivalent, contains preservative Immunization Only Work Phone: [facility] Work Phone: 01-18-2023 influenza virus vaccine, unspecified formulation Molly Kearns MD Work Phone: [facility] 03-05-2022 zoster vaccine recombinant Molly Kearns MD Work Phone: [facility] 01-28-2022 COVID-19 booster vaccine, age 12+ yr, bivalent (MAYE) Molly Kearns MD Work Phone: [facility] Work Phone: 01-28-2022 Influenza, injectabl e, Madin [place] Canine Kidney, preservative free, quadrivalent Molly Kearns MD Work Phone: [facility] 01-28-2022 Seasonal, trivalent, recombinant, injectable influenza vaccine, preservative free Molly Kearns MD Work Phone: [facility] Work Phone: 11-15-2021 zoster vaccine recombinant Molly Kearns MD Work Phone: [facility] 08-27-2021 COVID-19 original vaccine, full dose, monovalent (MAYE) Molly Kearns MD Work Phone: [facility] 03-19-2021 COVID-19 original vaccine, booster dose, monovalent (MAYE) Molly Kearns MD Work Phone: [facility] Work Phone: 02-09-2021 influenza virus vaccine, unspecified formulation Molly Kearns MD Work Phone: [facility] 08-04-2020 COVID-19 original vaccine, full dose, monovalent (MAYE) Molly Kearns MD Work Phone: [facility] Work Phone: 07-07-2020 COVID-19 original vaccine, full dose, monovalent (MODERNA) Molly Kearns MD Work Phone: [facility] Work Phone: 01-30-2020 influenza, injectabl e, quadrivalent, contains preservative Molly Kearns MD Work Phone: [facility] 01-30-2020 influenza, injectabl e, quadrivalent, preservative free Dr. Molly Kearns Work Phone: [facility] 01-30-2020 influenza, seasonal, injectable Dr. Molly Kearns Work Phone: [facility] 02-08-2019 influenza virus vaccine, unspecified formulation Molly Kearns MD Work Phone: [facility] 02-04-2018 influenza, injectabl e, quadrivalent, contains preservative Molly Kearns MD Work Phone: [facility] 02-04-2018 influenza, injectabl e, quadrivalent, preservative free Dr. Molly Kearns Work Phone: [facility] 02-04-2018 influenza, seasonal, injectable Dr. Molly Kearns Work Phone: [facility] 01-28-2017 influenza, injectabl e, quadrivalent, contains preservative Molly Kearns MD Work Phone: [facility] 01-28-2017 influenza, injectabl e, quadrivalent, preservative free Dr. Molly Kearns Work Phone: [facility] 01-28-2017 influenza, seasonal, injectable Dr. Molly Kearns Work Phone: [facility] 02-03-2016 influenza, seasonal, injectable Molly Kearns MD Work Phone: [facility] 02-02-2015 influenza, injectabl e, quadrivalent, preservative free Dr. Molly Kearns Work Phone: [facility] 02-02-2015 influenza, seasonal, injectable Molly Kearns MD Work Phone: [facility] 04-01-2012 tetanus toxoid, redu denisse diphtheria toxoid, and acellular pertussis vaccine, adsorbed Molly Kearns MD Work Phone: [facility] 02-05-2012 influenza virus vaccine, unspecified formulation Molly Kearns MD Work Phone: [facility] 06-13-2011 pneumococcal polysaccharide vaccine, 23 valent Molly Kearns MD Work Phone: [facility] 04-11-2009 novel [id number], preservative-free, injectable Molly Kearns MD Work Phone: [facility] Payers Date Payer Category Payer Blue [facility] PPO [id number] 2024 Unknown [id number] 2024 Unknown [id number] 2024 Private Health Insurance [id number] 2023 Private Health Insurance [id number] 2023 Self-pay [id number] 2022 Unknown [id number] 2015 Unknown [id number] Unknown [employer] BLUE ACCESS PPO [id number] Unknown [facility] PACKAGE PLAN [id number] Unknown [id number] Unknown [id number] Unknown [id number] Unknown [id number] Unknown [id number] Social History Date Type Detail Facility Start: 04-09-2017 End: 03-05-2022 Tobacco smoking status NHIS Never smoked tobacco [facility] Start: 04-09-2017 End: 03-05-2022 Tobacco use and exposure Smokeless tobacco non-user [facility] Start: 11-04-2020 End: 06-22-2024 Alcohol intake Current non-drinker of alcohol (finding) [facility] Start: 11-10-2019 End: 06-30-2020 History SDOH Alcohol Frequency 1 [facility] Start: 11-10-2019 End: 03-03-2020 History SDOH Alcohol Std Drinks 98 [facility] Start: 11-10-2019 End: 03-03-2020 History SDOH Social Connections Phone 5 [facility] Start: 11-10-2019 End: 03-03-2020 History SDOH Social Connections Sabianist 3 [facility] Start: 11-10-2019 End: 06-30-2020 History SDOH Transport Med 2 [facility] Start: 11-10-2019 Education 16 [facility] Start: 1965 Sex Assigned At Male [facility] Start: 11-05-2021 End: 03-05-2022 Exposure to SARS-CoV-2 (event) Not sure [facility] Start: 10-18-2022 End: 04-04-2023 Tobacco smoking status NHIS Unknown if ever smoked [facility] Start: 06-04-2020 Spouse/ Significant Other [facility] Start: 06-07-2020 Non-smoker [facility] Start: 03-03-2020 End: 10-25-2022 History of Social function [facility] Start: 03-03-2020 End: 10-25-2022 Social connection and isolation panel [facility] Start: 03-23-2012 How often do you get together with friends or relatives? Patient refused [facility] How often to you hav e a drink containing alcohol? Never [facility] Do you feel stress - tense, restless, nervous, or anxious, or unable to sleep at night because your mind is troubled all the time - these days [OSQ] Not at all [facility] (I/We) worried wheheather er (my/our) food would run out before (I/we) got money to buy more. Never true [facility] In the past 12 month s, was there a time when you were not able to pay the mortgage or rent on time? No [facility] Start: 11-03-2020 Gender identity Identifies as male gender (finding) [facility] Start: 11-03-2020 Sexual orientation Heterosexual (finding) [facility] Do you belong to any clubs or organizations such as sabianism groups, unions, fraternal or athletic groups, or school groups? Yes [facility] Are you now , , , , never or living with a partner? [facility] Medical Equipment Procedure Code Equipment Code Equipment Original Text Equipment Identifier Dates Lithotripsy, ESWL STENT,URETERAL PIGTAIL [id number] FDA Start: 06-09-2020 Lithotripsy, ESWL STENT,URETERAL PIGTAIL [id number] FDA Start: 06-09-2020 Lithotripsy, ESWL STENT,URETERAL PIGTAIL [id number] FDA Start: 06-09-2020 [id number], [id number] Start: 10-24-2022 Comment on above: Use one [...] Functional status Ambulates;Up a d batsheva;Bathroom Privilege [facility] Work Phone: 09-22-2014 Are you deaf, or do you have serious difficulty hearing No 09/22/2014 6:09 PM EDT Haydee Skelton LPN No [facility] 09-22-2014 Are you blind, or do you have serious difficulty seeing, even when wearing glasses No 09/22/2014 6:09 PM EDT Haydee Skelton LPN No [facility] 09-22-2014 Do you have serious difficulty walking or climbing stairs No 09/22/2014 6:09 PM EDT Haydee Skelton LPN No [facility] 09-22-2014 Do you have difficul ty dressing or bathing No 09/22/2014 6:09 PM EDT Haydee Skelton LPN No [facility] 09-22-2014 Because of a physica l, mental, or emotional condition, do you have difficulty doing errands alone such as visiting a physician's office or shopping No 09/22/2014 6:09 PM EDT Haydee Skelton LPN No [facility] Mental Status Date Assessment Result Facility 10-23-2022 Cognitive function Voice/Name [facility] Work Phone: 09-22-2014 Because of a physica l, mental, or emotional condition, do you have serious difficulty concentrating, remembering, or making decisions No 09/22/2014 6:09 PM EDT Haydee Skelton LPN No [facility] Clinical Notes 01-05-2011 to 01-13-2025 NINOSKA ODONNELL - 01/01/2025 3:16 PM EDTTelephone Encounter - Giuliana Hardin LPN - 12/28/2024 2:19 PM EDTTelephone Encounter - Giuliana Hardin LPN - 12/28/2024 2:19 PM EDT Note Date & Type Note Facility 01-13-2025 Note HNO ID: [id number] Author: MOLLY KEARNS MD Service: ? Author [...] reviewed. [employer] (more content not included)... [facility] 01-01-2025 Note HNO ID: [id number] Author: ?, ?, ? Service: ? Author Type: Licensed Nurse Type: Progress Notes Filed: 01/01/2025 15:17 Note Text: Patient presents for Flu and Twinrix vaccines. Denies any problems at this time. Tolerated injections well. Ninoska Odonnell LPN [facility] 01-01-2025 History of Present illness Narrative Patient presents for Flu and Twinrix vaccines. Denies any problems at this time. Tolerated injections well. Ninoska Odonnell LPN documented in this encounter [facility] 12-28-2024 Telephone encounter Note Patients notified that we do not have COVID at this time but could get flu with Hep vaccine. [facility] 12-28-2024 Miscellaneous Notes Patients notified that we do not have COVID at this time but could get flu with Hep vaccine. Spoke with patient's spouse to reschedule. Patient's spouse asked if patient should get his flu/COVID vaccines with his 3rd Hep vaccine later this week. Please advise. Traci Grubbs documented in this encounter [facility] 12-28-2024 Telephone encounter Note Spoke with patient's spouse to reschedule. Patient's spouse asked if patient should get his flu/COVID vaccines with his 3rd Hep vaccine later this week. Please advise. Traci Grubbs [facility] 10-22-2024 Telephone encounter Note The following approved medication requests have been transmitted electronically. Requested Prescriptions Pending Prescriptions Disp Refills gemfibrozil (LOPID) 600 mg tablet 180 tablet 3 Sig: Take 1 tablet by mouth two times a day. Molly Kearns MD [facility] 10-22-2024 Miscellaneous Notes The following approved [...] you. Norma Garvey. documented in this encounter [facility] 10-22-2024 Telephone encounter Note Pharmacy stated [...] Please advise. Thank you. Norma Garvey. T [facility] 10-12-2024 Telephone encounter Note Images from the original note were not included. Electronic PA reviewed and completed for freestyle brenda 2 sensors. This was approved. Prior authorization approved Payer: Sanju Note from payer: SANTO Case: [id number], Status: Partially Approved, Coverage Starts on: 10/09/2024 12:00:00 AM, Coverage Ends on: 10/09/2025 12:00:00 AM. Approval Details Authorization number: [id number] Authorized from October 09, 2024 to October [...] To be filled at: e- [id number] [place] [address] - [address] [facility] [phone] Pharmacy notified. [facility] 10-12-2024 Miscellaneous Notes Images from the original note were not included. Electronic PA reviewed and completed for freestyle brenda 2 sensors. This was approved. Prior authorization approved Payer: Sanju Note from payer: SANTO Case: [id number], Status: Partially Approved, Coverage Starts on: 10/09/2024 12:00:00 AM, Coverage Ends on: 10/09/2025 12:00:00 AM. Approval Details Authorization number: [id number] Authorized from October 09, 2024 to October [...] to its destination. To be filled at: [id number] [place] [address] - [address] [phone] Pharmacy notified. documented in this encounter [facility] 10-10-2024 Telephone encounter Note Per med PA, sensors have been approved. Authorization number: [id number] Authorized from October 09, 2024 to October 09, 2025 Information received electronically from payer Called pt and notified of approval. Sent the above information to pt's [employer] for reference if he speaks with [facility] in [place] and they say they are still waiting on the PA. [facility] 10-10-2024 Miscellaneous Notes Per med PA, sensors have been approved. Authorization number: [id number] Authorized from October 09, 2024 to October 09, 2025 Information received electronically from payer Called pt and notified of approval. Sent the above information to pt's [employer] for reference if he speaks with [facility] in [place] and they say they are still waiting on the PA. Patient is checking on status. Please send Prior Authorization to [facility] if approved and notify patient. [phone] Electronic PA rec'd for freestyle brenda sensors. documented in this encounter [facility] 10-09-2024 Telephone encounter Note Patient is checking on status. Please send Prior Authorization to [facility] if approved and notify patient. [phone] [facility] Work Phone: 10-06-2024 Telephone encounter Note Electronic PA rec'd for freestyle brenda sensors. [facility] 10-05-2024 Telephone encounter Note The following approved medication requests have been transmitted electronically. Requested Prescriptions Pending Prescriptions Disp Refills flash glucose sensor (FREESTYLE BRENDA 2 SENSOR) kit 6 each 4 Sig: Apply new sensor every fourteen (14) days to upper arm. Molly Kearns MD [facility] 10-05-2024 Miscellaneous Notes The following approved [...] 2024 9:40 AM documented in this encounter [facility] 10-02-2024 Telephone encounter Note Prescription Refill [...] Yaneli Steward October 02, 2024 9:40 AM [facility] 07-24-2024 Note HNO ID: [id number] Author: ?, ?, ? Service: ? Author Type: LICENSED NURSE Type: Progress Notes Filed: 07/24/2024 15:32 Note Text: Patient presents for Twinrix vaccine. Denies any problems at this time. Tolerated injection well. Ninoska Odonnell LPN [facility] 07-24-2024 History of Present illness Narrative Patient presents for Twinrix vaccine. Denies any problems at this time. Tolerated injection well. Ninoska Odonnell LPN documented in this encounter [facility] 07-02-2024 Telephone encounter Note Patient updated Jaki Lebron RN [facility] 07-02-2024 Miscellaneous Notes Patient updated Jaki [...] called in Fibroscan order needed Matthieu Gamboa Refrigerator Room Clerk ll documented in this encounter [facility] 07-02-2024 Telephone encounter Note Please let him know FS every two years (September 2025) I would be please to see him in the office (or V V) if he would like to review things in detail. Thanks Francisco Sanchez MD [facility] Work Phone: 07-02-2024 Telephone encounter Note [...] July 02, 2024 9:53 AM [facility] 07-02-2024 Telephone encounter Note Pt called in Fibroscan order needed Matthieu Gamboa Refrigerator Room Clerk ll T [facility] 06-22-2024 Instructions Molly Kearns MD - [...] team? Your provider may enroll you in [employer] Home BP Monitoring. Use the Track My Health section of STARFACE to log your readings. Alternatively, you can call our office or send a STARFACE Message. Report the readings with the BP, [...] the correct size. documented in this encounter [facility] 06-22-2024 Note HNO ID: [id number] Author: MOLLY KEARNS MD Service: ? Author Type: Physician Type: Progress Notes Filed: 07/22/2024 13:06 Note Text: This note was created using [employer]. Subjective Lonnie Denton is a 58 year [...] oz) 08/15/ (more content not included)... [facility] 06-22-2024 History of Present illness Narrative [...] available; subsequent doses to be scheduled with [facility]. The patient consented to the use of [employer] software for draft documentation of the visit consistent with [facility] s Notice of Privacy Practices. Molly Kearns MD documented in this encounter [facility] 06-01-2024 Telephone encounter Note The following approved medication requests have been transmitted electronically. Requested Prescriptions Pending Prescriptions Disp Refills flash glucose sensor (FREESTYLE BRENDA 2 SENSOR) kit 6 Each 4 Sig: Apply new sensor every fourteen (14) days to upper arm. Molly Kearns MD [facility] 06-01-2024 Miscellaneous Notes The following approved [...] 2024 8:45 AM documented in this encounter [facility] 06-01-2024 Telephone encounter Note The patient [...] Arizmendi RN June 01, 2024 8:45 AM [facility] 03-25-2024 Note HNO ID: [id number] Author: FRANCISCO SANCHEZ MD Service: ? Author [...] than 50% counseling Francisco Sanchez MD [facility] 03-25-2024 History of Present illness Narrative [...] Francisco Sanchez MD documented in this encounter [facility] 03-12-2024 Note HNO ID: [id number] Author: MITCH HERNANDEZ, DO Service: ? Author [...] total IgG. I spent time going through [facility] records. He was admitted summer 2022 for acute hepatitis and cholecystitis as well as pancreatitis. Underwent cholecystectomy. Had extensive workup which included serum immunoglobulins wherein the total IgG was 579 and all 4 subclasses of IgG were normal. Serum protein electrophoresis demonstrated no monoclonal protein. Immunofixation of the serum negative. Since he was diagnosed with steatohepatitis. [facility]. Liver biopsy slides reviewed at [facility]. Also was found to be compound [...] PILONIDAL CYST/SINUS COMPLICATED 1970s F LITHOTRIPSY 06/09/2020 [facility], Dr. Swan loratadine (CLARITIN) 10 mg [...] times a day. flash glucose scanning reader ([employer] BRENDA 2 READER) 1 Each once daily. [...] LE e (more content not included)... [facility] 03-12-2024 History of Present illness Narrative [...] total IgG. I spent time going through [facility] records. He was admitted summer 2022 for acute hepatitis and cholecystitis as well as pancreatitis. Underwent cholecystectomy. Had extensive workup which included serum immunoglobulins wherein the total IgG was 579 and all 4 subclasses of IgG were normal. Serum protein electrophoresis demonstrated no monoclonal protein. Immunofixation of the serum negative. Since he was diagnosed with steatohepatitis. [facility]. Liver biopsy slides reviewed at [facility]. Also was found to be compound [...] PILONIDAL CYST/SINUS COMPLICATED 1970s F LITHOTRIPSY 06/09/2020 [facility], Dr. Swan loratadine (CLARITIN) 10 mg [...] which included preparing to see the patient, [id number] patient care, completing clinical documentation, obtaining and/or reviewing separately obtained history, performing a medically appropriate examination, counseling and educating the patient/family/caregiver, ordering medications, tests, or procedures, communicating with other HCPs (not separately reported), and communicating results to the patient/family/caregiver. Mitch Hernandez DO documented in this encounter [facility] 03-12-2024 Nurse Note New Pt.. Discuss recent IgG values Cara Horne LPN [facility] 03-12-2024 Nurse Note New Pt.. Discuss recent IgG values Cara Horne LPN documented in this encounter [facility] 03-09-2024 Telephone encounter Note Spoke with patient's and scheduled. Traci Grubbs [facility] 03-09-2024 Miscellaneous Notes Spoke with patient's [...] up is needed. documented in this encounter [facility] 03-09-2024 Telephone encounter Note PSS- please contact patient to schedule a new patient appointment. Mellisa Novak LPN [facility] 03-09-2024 Telephone encounter Note It will be faster if we see him rather than me trying to explain what to do. [facility] Work Phone: 03-09-2024 Telephone encounter Note Please check referral for appropriateness. Cara Horne LPN [facility] 03-09-2024 Telephone encounter Note PATIENT NOTIFIED OF SAME. Did request that results be forwarded to Dr. Sanchez for his review. This encounter forwarded as requested. [facility] 03-09-2024 Telephone encounter Note Please let Lonnie and his know that IgG came back just slightly on the low side. I will place a referral to hem/onc to discuss if any further treatment or work up is needed. [facility] 03-02-2024 Telephone encounter Note PATIENT NOTIFIED OF SAME. Will have labs completed 03/06/24 Records released faxed to [facility]. [facility] 03-02-2024 Miscellaneous Notes PATIENT NOTIFIED OF SAME. Will have labs completed 03/06/24 Records released faxed to [email or web address]. Please return call, let them know hem/onc [...] like a bullseye. Patient was seen at [facility] where he was tested for lyme disease as well as protein electrophoresis serum. Results are in labs. Patient's Gamma Globulin was at 0.52 which is abnormal low. [facility] had told patient that with the Bullseye rash and abnormal blood test that patient may want to see hematology for this. is asking if provider can advise about this on whether more labs need to be done or should patient see hematology for this? Please review and advise, Traci Jordan RN documented in this encounter [facility] 03-02-2024 Telephone encounter Note Please return call, let them know hem/onc recommended some follow up blood work to check IGG, IGA, IGM levels. Orders placed. Also can we check on getting the office note from [facility] for this? Thank you! [facility] 02-28-2024 Telephone encounter Note Pt called and is notified of providers message and instructions. Pt voices understanding. Pt would like provider to get a hold of hem/onc and see if they would like any additional testing. Please call and advise Pt once provider hears from them. Sofi Rapp RN [facility] 02-28-2024 Telephone encounter Note Please let them know that liver dysfunction can be a cause of low gamma globulin so that is a possibility. I can reach out to hem/onc and see if they recommend any additional testing or referral but with that being the only abnormal on the panel I would not refer at this point. [facility] 02-28-2024 Telephone encounter Note Pt calling back in about the following lab done here on 01/21/24: Gamma Globulin 0.53 - 1.51 g/dL 0.52 Low Pt asking if he will need to get more labs added to his lab work for when he comes in for his [facility]. [facility] [facility] told him to call PCP and ask about his. Pt would like provider to call him back on his cell #. I told him I didn't know if they would get back to him this week. [facility] 02-27-2024 Telephone encounter Note Patient and calls and states that patient had a rash over body that looked like a bullseye. Patient was seen at [facility] where he was tested for lyme disease as well as protein electrophoresis serum. Results are in labs. Patient's Gamma Globulin was at 0.52 which is abnormal low. [facility] had told patient that with the Bullseye rash and abnormal blood test that patient may want to see hematology for this. is asking if provider can advise about this on whether more labs need to be done or should patient see hematology for this? Please review and advise, Traci Jordan RN [facility] 01-20-2024 Instructions Molly Kearns MD - 01/20/2024 [...] months from now. documented in this encounter [facility] 12-25-2023 Telephone encounter Note Patient has [...] 06/22/2024 Please advise. Thank you. Norma Garvey. [facility] 12-25-2023 Miscellaneous Notes Patient has been [...] you. Norma Garvey. documented in this encounter [facility] 12-03-2023 Telephone encounter Note PA approved : Authorized from December 02, 2023 to December 01, 2024 Patient was notified Leonora Thomason MA [facility] 12-03-2023 Miscellaneous Notes PA approved : Authorized from December 02, 2023 to December 01, 2024 Patient was notified Leonora Thomason MA Electronic PA completed for freestyle brenda 2 documented in this encounter [facility] 12-02-2023 Telephone encounter Note Electronic PA completed for freestyle brenda 2 [facility] 12-02-2023 History of Present illness Narrative This note was created using Zaarly. Subjective Lonnie Denton is a 58 year [...] to his liver specialist, Dr. Sanchez, in [place], which he attributes to the stress of [...] is taking only as needed per Dr. Kearsn 03/2023) Potassium Citrate 15 mEq TbER Take [...] Abs Lymph 1.00 - 4.00 k/uL 1.65 Perry% % 8.4 Abs Perry <0.87 k/uL 0.42 Eosin% % 1.8 Abs [...] no current signs of iron overload. - Wire Weaver Cloth and supervisor in charge have advised against further ferritin checks unless clinically indicated. - Continue monitoring AST and ALT levels as per supervisor in charge's recommendations. - Educated on the importance of [...] patient to consider after further discussion with supervisor in charge. - Educated on the importance of maintaining a healthy diet and regular exercise to manage fatty liver. - Follow-up with supervisor in charge Dr. Sanchez in March. Encounter for long-term [...] Molly Kearns MD documented in this encounter [facility] 11-26-2023 Telephone encounter Note Prescription Refill [...] Yaneli Steward November 26, 2023 1:03 PM [facility] 11-26-2023 Miscellaneous Notes Prescription Refill Information [...] 2023 1:03 PM documented in this encounter [facility] 11-08-2023 Telephone encounter Note Images from the original note were not included. Electronic PA rec'd and completed and approved for reader. Pharmacy notified. Prior authorization approved Payer: [employer] [phone] CaseId:[id number];Status:Approved;Rev iew Type:Prior Auth;Coverage Start Date:11/05/2023;Coverage End Date:11/07/2024; [...] its destination. To be filled at: [facility]pharmacy #[id number] [place] [address] - [address] [facility] [phone] [facility] 11-08-2023 Miscellaneous Notes Images from the original note were not included. Electronic PA rec'd and completed and approved for reader. Pharmacy notified. Prior authorization approved Payer: [employer] [phone] CaseId:[id number];Status:Approved;Rev iew Type:Prior Auth;Coverage Start Date:11/05/2023;Coverage End Date:11/07/2024; [...] to its destination. To be filled at: [facility]/pharmacy #[id number] [place] [address] - [address] [facility] [phone] documented in this encounter [facility] 11-05-2023 Telephone encounter Note Sent. [facility] 11-05-2023 Miscellaneous Notes Sent. Prescription Refill [...] Yes Requesting a new Freestyle Brenda 2 Imboden to be [facility] to the [facility] [place] Patient says he has sensors. Bel Slade November 05, 2023 11:42 AM documented in this encounter [facility] 11-05-2023 Telephone encounter Note Prescription Refill [...] with this provider/department: Yes Requesting a new World Reviewer 2 Imboden to be sent to the [facility] [place] Patient says he has sensors. Bel M Mc Slade November 05, 2023 11:42 AM [facility] Work Phone: 09-26-2023 History of Present [...] Francisco Sanchez MD documented in this encounter [facility] 09-26-2023 History of Present illness Narrative [...] Int J Clin Exp Med. 2015 Jan 15;8(10):02757-22. PMID: [id number]; PMCID: [id number]. Luly Paulson, Tori JOHNY, Cheryle M, Rosemary F, Destiny J, Roselyn O, Alyssa F, Zion M, Bethany G, Geoffrey A, Matt E, Kala L, Janay G, Nydia A, Malia U, Deepa S, Hawa P, Yin V, Saleh V, Bao M, April PINEDA. Refining the Baveno elastography criteria for the definition of compensated advanced chronic liver disease. J Hepatol. 2020;74(5):4519-4269. doi: 10.1016/j.jhep.2020.11.050. Epub 2019Mar 30. PMID: 65246916. documented in this encounter [facility] 09-24-2023 Telephone encounter Note Nurse sent MCM to the patient to answer their question. Authorization is currently pending Jaki Lebron RN September 24, 2023 9:33 AM [facility] 09-24-2023 Miscellaneous Notes Nurse sent MCM to the patient to answer their question. Authorization is currently pending Jaki Lebron RN September 24, 2023 9:33 AM Patient called in requesting that the prior authorization is in for his procedure prior to his Dr. Sanchez appointment Please review and advise Matthieu Gamboa Refrigerator Room Clerk ll documented in this encounter [facility] 09-24-2023 Telephone encounter Note Patient called in requesting that the prior authorization is in for his procedure prior to his Dr. Sanchez appointment Please review and advise Matthieu Gamboa Refrigerator Room Clerk ll [facility] 08-16-2023 History of Present illness Narrative [...] use since March. Following with hepatology at [facility]. LULU was positive. Concerned about autoimmune hepatitis. Had second opinion with [facility]. Reviewed slides from [facility]. Not autoimmune hepatitis. Fatty liver. 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) - 10/26/2022 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 - 05/21/2018 Nicole (Nonalcoholic Steatohepatitis) - 05/14/2018 Elevated Ferritin - 05/14/2018 Type 2 Diabetes Mellitus Without Complication, Without Long-Term Current Use of Insulin ([facility]) - 03/26/2017 Allergic Rhinitis - 06/04/2008 [...] of weight loss. BMI 25.97 kg/(m^2) - GlookoYLE BRENDA 2 READER 2. Essential hypertension - [...] Jean Sylvester APRN-RUCHI documented in this encounter [facility] 08-05-2023 Miscellaneous Notes Canceled as requested one set of labs.The other set of labs would not let me cancel, but set date for expiration 08/21/23. Does not have to have drawn even if is a standing order. Patient calls and is asking if Iron and Ferritin labs can be discontinued. Per patient Dr. Sanchez Coordinate Measuring Equipment Operator had told patient that lab values would not be accurate due to hemochromatosis. Please review and advise, Traci Jordan, RN documented in this encounter [facility] 06-07-2023 Miscellaneous Notes Order deleted as requested by patient Consult placed. I do not see an active order for hepatitis panel. Did he want to cancel CBC iron and ferritin? Pt called for the followin.referral to [facility] gastro to see Dr. Francisco Sanchez Apt has been booked. Need referral to be approved by his insurance. Apt is 3-24 dx Autoimmune hepatitis. 2.pt asking to have the lab for autoimmune hep be removed form his list of labs to be done. Pt reports he had this done at [facility]. Wants to make sure when he comes in to get his standing orders done that this is not done again. Liv Cartagena LPN documented in this encounter [facility] 03-23-2023 Miscellaneous Notes Spoke with patient. Given message from provider's office. Patient verbalizes understanding. Setph Garsia RN Left message to return call [...] Traci Jordan, RN documented in this encounter [facility] 11-14-2022 Miscellaneous Notes Pt calling and asking if we could please fax lab results to Dr. Sarmiento's office at [phone]. They see that the lab report is back. Also given Dr. Kearns results and instructions. Pt verbalizes understanding. Faxing lab results to Dr. Sarmiento now. Let them know CMP and CBC are done since can do here at [facility] Rajesh but rest if labs still in process since sent to [facility] lab. I pulled up CMP and CBC with results going back to 11/07/21 to fax as requested to Dr. Zavala. Noted that potassium is a little low at 3.5 (improved from 3.1 at [facility]) LFTs showed elevated of total bilirubin and Alk phos and AST and ALT. Last bilirubin at [facility] was 10.60 on 10/22 Albumin was [...] be faxed to Dr Sarmiento office at [phone]. is asking if my chart message could be sent to let them know the CMP had been faxed please. documented in this encounter [facility] 10-26-2022 Instructions Molly Kearns MD - [...] to stay on. documented in this encounter [facility] 10-26-2022 History of Present illness Narrative This note was created using Zaarly. Subjective Lonnie Denton is a 56 year [...] complication, with long-term current use of insulin ([facility]) E11.9 flash glucose scanning reader (FREESTYLE BRENDA 2 READER) Z79.4 flash glucose sensor (FREESTYLE BRENDA 2 SENSOR) kit 2. 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 Elevated ferritin R79.89 4. Autoimmune hepatitis treated with steroids ([facility]) K75.4 5. Essential hypertension I10 [...] Molly Kearns MD documented in this encounter [facility] 10-25-2022 History of Present illness Narrative [...] Ninoska Odonnell LPN documented in this encounter [facility] 10-24-2022 Miscellaneous Notes Spoke with patient's . Given message from provider's office regarding Insulin scripts. Scheduled appointment with [place] Nurse for Insulin teaching on 10/25. Scheduled [...] or nurse or DM nurse or DM GRINDER GEAR for teaching if willing to give self insulin titrating down the prednisone. Might also be high s/p acute pancreatitis. If knows how to give self insulin (though I have no record that ever gave self insulin), can send Rx for long acting plus short acting. I sent the prescriptions for insulin so that may rock picker the RXs whether or not needs DM teaching on insulin use. Can bring to appointment with one of the above noted providers to help with teaching if needed. Might just need short term while getting off prednisone, but not sure given recent pancreatitis whether might need some insuline for a while during recovery from that. Also, check [facility] for the pathology report on the biopsy [...] time? Steph Garsia, RN Pt was at [facility] 10/18 - 10/23/22. Dx'd with acute [...] Fanny Gabriel LPN documented in this encounter [facility] 10-23-2022 Discharge summary Note Date/Time October 23, 2022 8:12am [facility] Medical Records Department [address] [place] [address] Discharge Summary 10/23/22 0810 MR#: [id number] Acct: [id number] Name: LONNIE MORA Rep #:[id number] : 1965 56 From: Bryson hoyt MD PCP: Dr. Molly Kearns MD Status:AD M IN [facility] Prov[facility] Date of Admission: 10/18/22 Primary Care Physician: Dr. Molly Kearns MD Consultations 10/19/22 07:49 Consult: Gastroenterology Routine Consulting Provider: [facility] Reason for Consult: Progressive bili elevation [...] recheck labs tomorrow. Bryson Merritt MD Pager: [facility] [address] [place] [address], [address] [place] [address] Office: (6) Diabetes: Status: Chronic Code(s): E11.9 [...] mg PO BID #6 tabs 06/09/20 omega 8-bfy-mky-fish oil 1,200 mg (144 mg-216 mg) capsule (Fish Oil) cap PO [facility] 10/18/22 tramadol 50 mg tablet [...] mg PO BID Qty: 6 0RF omega 8-qky-gbj-fish oil [Fish Oil] 1,200 (144-216) mg capsule [...] Merritt MD; Dr. Molly Kearns MD~ Signed [facility] Work Phone: 1(500) 570-869107-03-2023 Progress note Author Darrius Rubalcava [facility] October 22, 2022 11:29am Note Date/Time October 22, 2022 11:26 am [facility] Medical Records Department [address] [place] [address] Progress Note - Surgery 10/22/22 1120 MR#: [id number] Acct: [id number] Name: LONNIE MORA Rep #:[id number] : 1965 56 From: Darrius Crowe PCP: Dr. Molly Kearns MD Status:AD M IN [facility] Subjective Subjective Patient seen and examined during [...] 86.4 H, Lymph % (Auto) 6.3 L, Perry % (Auto) 6.7, Eos % (Auto) 0.0, [...] steroid therapy. Charges/Coding Visit Charges Inpatient E&M: 39617 Subs Hosp L2 10/22/22 1122 <Electronically signed by Darrius Rubalcava MD> Cosigner Signature (if applicable): CC: ~ Signed [facility] Work Phone: 1(510) 436-950307-02-2023 Progress note Author Ranjtih Sarmiento [facility] October 21, 2022 5:00pm Note Date/Time October 21, 2022 5:00p m [facility] Medical Records Department [address] [place] [address] Progress Note - GI 10/21/22 1657 MR#: [id number] Acct: [id number] Name: LONNIE MORA Rep #:[id number] : 1965 56 From: Ranjith Sarmiento DO PCP: Dr. Molly Kearns MD Status:AD M IN Location: MS3 RZ092-0 Subjective Subjective Patient is doing a lot [...] 90, TIBC 375, Iron Saturation 24.0, Ferritin 51172 H, Ammonia 29.0, Lactate Dehydrogenase 528 H, Total Creatine Kinase 126, C-React Prot Ext Range 88.60 H 10/21/22 05:36: WBC 9.3, RBC 4.65, Hgb 14.6, Hct 41.4, MCV 89.0, MCH 31.4, MCHC 35.3, RDW Std Deviation 40.9, RDW Coeff of Rodrigue 12.5, Plt Count 167, MPV 12.0, Immature Gran % (Auto) 0.600, Neut % (Auto) 91.9 H, Lymph % (Auto) 4.8 L, Perry %(Auto) 2.6, Eos % (Auto) 0.0, Baso [...] for hemochromatosis. Charges/Coding Visit Charges Inpatient E&M: 93940 Subs Hosp L3 10/21/22 1700 <Electronically signed by Ranjith Friend DO> Cosigner Signature (if applicable): CC: ~ Signed [facility] Work Phone: 1(667) 654-202807-02-2023 Progress note Author Bryson Merritt [facility] October 21, 2022 9:35am Note Date/Time October 21, 2022 9:35a m [facility] Medical Records Department [address] [place] [address] Progress Note - Surgery 10/21/22 0934 MR#: [id number] Acct: [id number] Name: LONNIE MORA Rep #:[id number] : 1965 56 From: Bryson hoyt MD PCP: Dr. Molly Kearns MD Status:AD M IN Location: [facility] [id number] Subjective Subjective Patient says he feels well. [...] 90, TIBC 375, Iron Saturation 24.0, Ferritin 44381 H, Ammonia 29.0, Lactate Dehydrogenase 528 H, Total Creatine Kinase 126, C-React Prot Ext Range 88.60 H 10/21/22 05:36: WBC 9.3, RBC 4.65, Hgb 14.6, Hct 41.4, MCV 89.0, MCH 31.4, MCHC 35.3, RDW Std Deviation 40.9, RDW Coeff of Rodrigue 12.5, Plt Count 167, MPV 12.0, Immature Gran % (Auto) 0.600, Neut % (Auto) 91.9 H, Lymph % (Auto) 4.8 L, Perry %(Auto) 2.6, Eos % (Auto) 0.0, Baso [...] recheck labs tomorrow. Bryson Merritt MD Pager: [facility] [address] [place] [address], [address] [place] [address] Office: 10/21/22 0956 <Electronically signed by Bryson Merritt MD> Cosigner Signature (if applicable): CC: ~ Signed [facility] Work Phone: 1(508) 750-694007-01-2023 Consult note Author Ranjith Sarmiento [facility] October 20, 2022 8:05pm Note Date/Time October 20, 2022 7:38p m [facility] Medical Records Department [address] [place] [address] Consultation - GI 10/20/22 193 MR#: [id number] Acct: [id number] Name: LONNIE MORA Rep #:[id number] : 1965 56 From: Ranjith Sarmiento DO PCP: Dr. Molly Kearns MD Status:AD M IN Location: [facility] SI439-4 HPI Consult Data Date of Consult: 10/20/22 [...] Currently complains of bloating and abdominal discomfort. [facility] Medical History (Updated 10/20/22 @ 19:47 by [...] tabs 06/09/20 [Rx Last Taken Unknown] omega 2-fag-kwp-fish oil 1,200 mg (144 mg-216 mg) capsule [...] 88.4 H, Lymph % (Auto) 4.7 L, Perry % (Auto) 6.2, Eos % (Auto) 0.1, [...] from Nicole Charges/Coding Visit Charges Inpatient E&M: 49463 Init Hosp L3 10/20/222004 <Electronically signed by Ranjith Friend DO> Cosigner Signature (if applicable): CC: Dr. Molly Kearns MD~ Signed [facility] Work Phone: 1(678) 462-691507-01-2023 Progress note Author Bryson Merritt [facility] October 20, 2022 7:05am Note Date/Time October 20, 2022 7:05a m [facility] Medical Records Department [address] [place] [address] Progress Note - Surgery 10/20/2204 MR#: [id number] Acct: [id number] Name: LONNIE MORA Rep #:[id number] : 1965 56 From: Bryson hoyt MD PCP: Dr. Molly Kerans MD Status:AD M IN Location: [address] Subjective Subjective Patient is doing much [...] LFTs start decreasing. Bryson Merritt MD Pager: [facility] [address] [place] [address], [address] [place] [address] Office: 10/20/22 0705 <Electronically signed by Bryson Merritt MD> Cosigner Signature (if applicable): CC: ~ Signed [facility] Work Phone: 1(980) 861-269506-30-2023 Procedure [facility] 10-19-2022 Progress note Author Darrius Rubalcava [facility] October 19, 2022 1:04pm Note Date/Time October 19, 2022 10:5 8am [facility] Medical Records Department [address] [place] [address] Progress Note - Surgery 10/19/22 1058 MR#: [id number] Acct: [id number] Name: LONNIE MORA Rep #:[id number] : 1965 56 From: Darrius Crowe PCP: Dr. Molly Kearns MD Status:AD M IN [facility] Subjective Subjective Patient seen and examined during [...] 83.9 H, Lymph % (Auto) 8.2 L, Perry % (Auto) 6.5, Eos % (Auto) 0.8, [...] Clarity Clear, Urine pH 5.0, Ur Specific [place] 1.015, Urine Protein Negative, Urine Glucose (UA) [...] 92.0 H, Lymph % (Auto) 3.3 L, Perry % (Auto) 4.1, Eos % (Auto) 0.0, Baso % (Auto) 0.2, Absolute Neuts (auto) 10.7 H, Absolute Lymphs (auto) 0.38 L, Nucleated RBC % 0, Differential Comment SCANNED, Sodium 136, Potassium 3.5, Chloride 104, Carbon Dioxide 24.0, Anion Gap8, BUN 10, Creatinine 0.90, Estim Creat Clear Calc 95.76, Est GFR (MDRD) Af Lcnj676, Est GFR (MDRD) Non-Af 93, BUN/Creatinine Ratio [...] discussed above. Charges/Coding Visit Charges Inpatient E&M: 88866 Subs Hosp L2 10/19/22 1304 <Electronically signed by Darrius Rubalcava MD> Cosigner Signature (if applicable): CC: ~ Signed [facility] Work Phone: 1(658) 292-875006-30-2023 Discharge summary Author Noe Barbour [facility] October 19, 2022 7:26am Note Date/Time October 18, 2022 2:26 pm [facility] Medical Records Department [address] [place] [address] Emergency Department Summary 10/18/22 MR#: [id number] Acct: [id number] Name: LONNIE MORA Rep #:[id number] : 1965 56 From: Noe Longo PCP: Dr. Molly Kearns MD Status:AD M IN Location: [facility]3 [id number] HPI <Dr. Noe Barbour DO - Last [...] Prior similar symptoms: No PFSH <Dr. Noe Babrour DO - Last Filed: 10/19/22 07:26> PFSH [...] tabs 06/09/20 [Rx Last Taken Unknown] omega 7-oli-cxk-fish oil 1,200 mg (144 mg-216 mg) capsule [...] Method Room Air Room Air MDM <Dr. Neo Barbour, DO - Last Filed: 10/19/22 07:26> [...] clinician: N/A This note was generated with [employer] dictation software. It may contain incorrectwords, spelling, [...] 83.9 H Lymph % (Auto) 8.2 L Perry % (Auto) 6.5 Eos % (Auto) 0.8 [...] Clarity Clear Urine pH 5.0 Ur Specific [place] 1.015 Urine Protein Negative Urine Glucose (UA) [...] Garibay, DO - Last Filed: 10/18/22 18:42> [facility] Lab Data Labs: Laboratory Results - last 24 hr 10/18/22 10/18/22 14:30 16:03 WBC 12.0 H RBC 5.05 Hgb 15.7 Hct 44.2 MCV 87.5 MCH 31.1 MCHC 35.5 RDW Std Deviation 37.2 RDW Coeff of Rodrigue 11.8 Plt Count 207 MPV 10.9 Immature Gran % (Auto) 0.300 Neut % (Auto) 83.9 H Lymph % (Auto) 8.2 L Perry % (Auto) 6.5 Eos % (Auto) 0.8 [...] Clarity Clear Urine pH 5.0 Ur Specific [place] 1.015 Urine Protein Negative Urine Glucose (UA) [...] Acute cholecystitis Disposition Disposition: Acute Care Hospital [facility] Discharge Date/Time: 10/18/22 19:38 What to do if you have Problems For any increased pain, shortness of breath, bleeding, nausea or vomiting, chestpain, or any unexpected problems, contact your Primary Care Provider. Call [facility] ([phone]) or report to the closest Emergency Room. Call 911 if necessary. 10/19/22 0731 <Electronically signed by Noe Le DO> Cosigner Signature (if applicable): 10/19/22 0125 <Electronically signed by Cristobal Garibay DO> CC: Dr. Molly Kearns MD ~ Signed [facility] Work Phone: 1(556) 945-692506-29-2023 History and physical note Author Darrius Rubalcava [facility] October 18, 2022 7:18pm Note Date/Time October 18, 2022 7:19 pm [facility] Medical Records Department [address] [place] [address] History & Physical Exam 10/18/22 1904 MR#: [id number] Acct: [id number] Name: LONNIE MORA Rep #:[id number] : 1965 56 From: Darrius Crowe PCP: Dr. Molly Kearns MD Status:RE G ER Location: ED HPI - General General Date of Admission: 10/18/22 Date of Service: 10/18/22 Chief Complaint: Acute onset abdominal pain HPI Narrative LONNIE MORA, is a 56 M who presents to [facility] ER in the company of his [...] salad and chips and a dinner of Surinamese beef burrito. He denies any associated nausea [...] tabs 06/09/20 [Rx Last Taken Unknown] omega 6-qyx-moo-fish oil 1,200 mg (144 mg-216 mg) capsule [...] 83.9 H, Lymph % (Auto) 8.2 L, Perry % (Auto) 6.5, Eos % (Auto) 0.8, [...] Clarity Clear, Urine pH 5.0, Ur Specific [place] 1.015, Urine Protein Negative, Urine Glucose (UA) [...] patient's CMP Charges/Coding Visit Charges Inpatient E&M: 92133 Init Hosp L2 10/18/221917 <Electronically signed by Darrius Rubalcava MD> Cosigner Signature (if applicable): CC: Dr. Molly Kearns MD; Dr. Darrius Rubalcava MD~ Signed [facility] Work Phone: 1(461) 773-153003-18-2023 Miscellaneous Notes* Telephone Encounter - Bel Brizuela [...] and advise. Bel Brizuela [facility] History of Present illness Narrative* Molly Kearns MD - 07/04/2022 3:55 PM EDT This note was created using [employer]. Subjective Lonnie Denton is a 56 year [...] Lymph 1.00 - 4.00 k/uL 1.73 1.81 Perry% % 10.7 7.6 Abs Perry <0.87 k/uL 0.48 0.40 Eosin% % 3.3 [...] sleep. Molly Kearns MD [facility] History of Present illness Narrative* Molly Kearns MD - 03/05/2022 4:15 PM EST This note was created using [employer]. Subjective Lonnie Denton is a 56 year old male. Patient presents with: Follow Up SUBJECTIVE: Lonnie Denton is a 56 year old year old gentleman here today for 4 month follow up appointment forreview of medical conditions. Stress the past couple months. 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 Working in [employer] starting next week. Hanging in there. BPs [...] Lymph 1.00 - 4.00 k/uL 1.73 1.81 Perry% % 10.7 7.6 Abs Perry <0.87 k/uL 0.48 0.40 Eosin% % 3.3 [...] indicated. Molly Kearns MD documented [facility] History of Present illness Narrative* Molly [...] Abs Lymph 1.00 - 4.00 k/uL 1.73 Perry% % 10.7 Abs Perry <0.87 k/uL 0.48 Eosin% % 3.3 Abs [...] RECOMBINANT,IM Molly Kearns MD documented [facility] History of Past illness Narrative* Problem Noted Date Resolved Date Diabetes mellitus type 2, controlled, without co mplications 01/05/2011 08/31/2015 OBESITY NOS 03/23/2015 Unspecified sleep apnea 09/12/19 17 documented as of this encounter (statuses as of 01/23/2022) [facility] Narrative* Problem Noted Date Resolved Date Diabetes mellitus type 2, controlled, without co mplications 01/05/2011 08/31/2015 OBESITY NOS 03/23/2015 Unspecified sleep apnea 09/12/19 17 documented as of this encounter (statuses as of 03/29/2022) [facility] Narrative* Problem Noted Date Resolved Date Diabetes mellitus type 2, controlled, without co mplications 01/05/2011 08/31/2015 OBESITY NOS 03/23/2015 Unspecified sleep apnea 09/12/19 17 documented as of this encounter (statuses as of 07/09/2022) [facility] Narrative* Problem Noted Date Resolved Date Diabetes mellitus type 2, controlled, without co mplications 01/05/2011 08/31/2015 OBESITY NOS 03/23/2015 Unspecified sleep apnea 09/12/19 17 documented as of this encounter (statuses as of 08/03/2022) [facility] Narrative* Problem Noted Date Resolved Date Diabetes mellitus type 2, controlled, without co mplications 01/05/2011 08/31/2015 OBESITY NOS 03/23/2015 Unspecified sleep apnea 09/12/19 17 documented as of this encounter (statuses as of 10/26/2022) [facility] Narrative* Problem Noted Date Diagnosed Date Resolved Date Diabetes mellitus type 2, co ntrolled, without complications 01/05/2011 08/31/2015 OBESITY NOS 03/23/2015 Unspecified sleep apnea 08/21 documented as of this encounter (statuses as of 10/30/2022) [facility] Narrative* Problem Noted Date Diagnosed Date Resolved Date Diabetes mellitus type 2, co ntrolled, without complications 01/05/2011 08/31/2015 OBESITY NOS 03/23/2015 Unspecified sleep apnea 08/21 documented as of this encounter (statuses as of 11/15/2022) [facility] Narrative* Problem Noted Date Diagnosed Date Resolved Date Diabetes mellitus type 2, co ntrolled, without complications 01/05/2011 08/31/2015 OBESITY NOS 03/23/2015 Unspecified sleep apnea 08/21 documented as of this encounter (statuses as of 12/03/2022) [facility] Narrative* Problem Noted Date Diagnosed Date Resolved Date Diabetes mellitus type 2, co ntrolled, without complications 01/05/2011 08/31/2015 OBESITY NOS 03/23/2015 Unspecified sleep apnea 08/21 documented as of this encounter (statuses as of 01/19/2023) [facility] Narrative* Problem Noted Date Diagnosed Date Resolved Date Diabetes mellitus type 2, co ntrolled, without complications 01/05/2011 08/31/2015 OBESITY NOS 03/23/2015 Unspecified sleep apnea 08/21 documented as of this encounter (statuses as of 03/23/2023) [facility] Narrative* Problem Noted Date Diagnosed Date Resolved Date Diabetes mellitus type 2, co ntrolled, without complications 01/05/2011 08/31/2015 OBESITY NOS 03/23/2015 Unspecified sleep apnea 08/21 documented as of this encounter (statuses as of 06/07/2023) [facility] Narrative* Problem Noted Date Diagnosed Date Resolved Date Diabetes mellitus type 2, co ntrolled, without complications 01/05/2011 08/31/2015 OBESITY NOS 03/23/2015 Unspecified sleep apnea 08/21 documented as of this encounter (statuses as of 08/07/2023) [facility] Diagnosis Elevated ferritin- Primary Other abnormal blood chemistry Type 2 diabetes mellitus without complication, without long-term current use of insulin (HCC) Essential hypertension Unspecified essential hypertension Mixed hyperlipidemia Kidney stones Calculus of kidney NICOLE (nonalcoholic steatohepatitis) Other chronic nonalcoholic liver disease Need for vaccination Need for prophylactic vaccination and inoculation against unspecified single disease [facility] encounter [facility]* Diagnosis Type 2 diabetes mellitus without complication, without long-term current use of insulin (HCC)- Primary Essential hypertension Unspecified essential hypertension Elevated ferritin Other abnormal blood chemistry Mixed hyperlipidemia [facility] Diagnosis Type 2 diabetes mellitus without complication, without long-term current use of insulin (HCC)- Primary Elevated ferritin Other abnormal blood chemistry Essential hypertension Unspecified essential hypertension Mixed hyperlipidemia Encounter for long-term current use of medication [facility]* Diagnosis Onset Date Resolution Status Abdominal pain acute Acute cholecystitis acute Acute gallstone pancreatitis acute Acute pancreatitis acute Common bile duct dilatation acute Transaminitis acute [facility] Work Phone: Evaluation note* Diagnosis Onset Date Resolution Status Abdominal pain acute Acute cholecystitis acute Acute gallstone pancreatitis acute Acute hepatitis acute Acute pancreatitis acute Common bile duct dilatation acute Hemochromatosis acute Hyperbilirubinemia acute Transaminitis acute Diabetes chronic [facility] Work Phone: Evaluation note* Diagnosis Type 2 diabetes mellitus without complication, without long-term current use of insulin (HCC)- Primary [facility]* Diagnosis Type 2 diabetes mellitus without complication, with long-term current use of insulin (HCC)- Primary 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) Elevated ferritin Other abnormal blood chemistry Autoimmune hepatitis treated with steroids (HCC) Autoimmune hepatitis Essential hypertension Unspecified essential hypertension [facility] Elevated ferritin- Primary Other abnormal blood chemistry Encounter for long-term current use of medication Mixed hyperlipidemia Type 2 diabetes mellitus with hyperglycemia, with long-term current use of insulin (HCC) Essential hypertension Unspecified essential hypertension [facility] Diagnosis Onset Date Resolution Status Acute hepatitis chronic Elevated ferritin chronic Hemochromatosis chronic [facility] Work Phone: Evaluation note* Diagnosis Autoimmune hepatitis treated with steroids (HCC)- Primary Autoimmune hepatitis [facility] Diagnosis Type 2 diabetes mellitus without complication, with long-term current use of insulin (HCC)- Primary Essential hypertension Unspecified essential hypertension 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) Fatty liver Other chronic nonalcoholic liver disease Encounter for immunization Need for other specified prophylactic vaccination against single bacterial disease [facility] Diagnosis Liver disease- Primary Unspecified disorder of liver [facility] Diagnosis Liver disease- Primary Unspecified disorder of liver [facility] Diagnosis Type 2 diabetes mellitus without complication, with long-term current use of insulin (HCC)- Primary [facility] Diagnosis Routine medical exam- Primary Routine general medical examination at a health care facility Type 2 diabetes mellitus without complication, with long-term current use of insulin (HCC) 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) Essential hypertension Unspecified essential hypertension Fatty liver Other chronic nonalcoholic liver disease Encounter for long-term current use of medication [facility] Diagnosis Hypogammaglobulinemia (HCC)- Primary Hypogammaglobulinaemia, unspecified [facility]* Diagnosis Hypogammaglobulinemia (HCC)- Primary Hypogammaglobulinaemia, unspecified [facility]* Diagnosis Hypogammaglobulinemia (HCC)- Primary Hypogammaglobulinaemia, unspecified [facility]* Diagnosis Liver disease- Primary Unspecified disorder of liver [facility] Diagnosis Type 2 diabetes mellitus without complication, with long-term current use of insulin (HCC) [facility] Diagnosis Liver disease- Primary Unspecified disorder of liver [facility] Diagnosis Type 2 diabetes mellitus [...] unspecified single disease [facility] Diagnosis Encounter for immunization- Primary Need for other specified prophylactic vaccination against single bacterial disease [facility] Diagnosis Type 2 diabetes mellitus without complication, with long-term current use of insulin (HCC) [facility] Diagnosis Need for influenza vaccination- Primary Need for prophylactic vaccination and inoculation against influenza Encounter for immunization Need for other specified prophylactic vaccination against single bacterial disease documented [facility] this encounter [facility] Author Darrius Rubalcava [facility] October 18, 2022 7:18pm Note Date/Time October 18, 2022 7:19 pm [facility] Medical Records Department [address] [place] [id number] History & Physical Exam 10/18/22 1904 MR#: [id number] Acct: [id number] Name: LONNIE MORA Rep #:[id number] : 1965 56 From: Darrius Crowe PCP: Dr. Molly Kearns MD Status:RE G ER Location: ED HPI - General General Date of Admission: 10/18/22 Date of Service: 10/18/22 Chief Complaint: Acute onset abdominal pain HPI Narrative LONNIE MORA, is a 56 M who [facility] in the company of his [...] salad and chips and a dinner of Surinamese beef burrito. He denies any associated nausea [...] medical history significant for well-controlled hypertension, hyperlipidemia, Incole, and type 2 diabetes (but reports that he has not been started on medication for this latter diagnosis). Surgically?speaking he has a history of kidney stones requiring lithotripsy with urology and a remote history of pilonidal cystectomy. [facility] Home Medications ketorolac 10 mg tablet 10 [...] tabs 06/09/20 [Rx Last Taken Unknown] omega 7-itw-bdr-fish oil 1,200 mg (144 mg-216 mg) capsule [...] 83.9 H, Lymph % (Auto) 8.2 L, Perry % (Auto) 6.5, Eos % (Auto) 0.8, [...] Clarity Clear, Urine pH 5.0, Ur Specific [place] 1.015, Urine Protein Negative, Urine Glucose (UA) [...] patient's CMP Charges/Coding Visit Charges Inpatient E&M: 57598 Init Hosp L2 10/18/221917 <Electronically signed by Darrius Rubalcava MD> Cosigner Signature (if applicable): CC: Dr. Molly Kearns MD; Dr. Darrius Rubalcava MD~ Signed [facility] Work Phone: Chief Complaint and Reason [...] No October 18, 2022 2:20pm Power of Manager [employer] No October 18 3 2:20pm Advance Directive Response Recorded Date/ Time Living Will No October 18, 2022 7:55pm Power of Manager [employer] No October 18 3 7:55pm Advance Directive Response Recorded Date/ Time Living Will No October 18, 2022 6:55pm Power of Manager [employer] No October 18 3 6:55pm Reason for Referral Specialty Diagnoses / Procedures Referred By Contac t Referred To Contact Diagnoses Type 2 diabetes mellitus without complication, with long-term current use of insulin (HCC) Molly Kearns MD [address] [place] [address] Referral ID Status Reason Start Date Expiration Date V isits Requested Visits Authorized [id number] Authorized 10/26/2022 10/26/2023 1 1 Specialty Diagnoses / Procedures Referred By Contac t Referred To Contact Gastroenterology Diagnoses Autoimmune hepatitis treated with steroids (HCC) Procedures CONSULT TO GASTROENTEROLOGY OFFICE/OUTPATIENT [facility] 60 MINUTES Bety Bajwa, CMM OPERATOR.ANTHROPOLOGY FACULTY MEMBER [address] [place] [address] Referral ID Status Reason Start Date Expiration Date Visits Requested Visits Authorized [id number] Authorized PCP Requested Referral 06/07/2023 06/06/2024 1 1 Specialty Diagnoses / Procedures Referred By Contac t Referred To Contact Diagnoses Type 2 diabetes mellitus without complication, with long-term current use of insulin (HCC) Jean Sylvester APRN.[employer] [address] [place] [address] Referral ID Status Reason Start Date Expiration Date V isits Requested Visits Authorized [id number] Pending Review 1 1 Referral ID Status Reason Start Date Expiration Date V isits Requested Visits Authorized [id number] Authorized 12/02/2023 12/01/2024 1 1 Specialty Diagnoses / Procedures Referred By Contronny t Referred To Contact Diagnoses Hypogammaglobulinemia (HCC) Procedures CONSULT TO HEMATOLOGY/ONCOLOGY OFFICE/OUTPATIENT [facility] 60 MINUTES Jean Sylvester APRN.[employer] [address] [place] [address] Referral ID Status Reason Start Date Expiration Date Visits Requested Visits Authorized [id number] Authorized PCP Requested Referral 03/09/2025 1 1 [...] or prosecute any alcohol or drug abuse patient.[facility] HospitalIn the event this information is protected by the Federal Confidentiality of Alcohol and Drug Abuse Patient Records regulations: The Federal rules restrict any use of the information to criminally investigate or prosecute any alcohol or drug abuse patient.[facility] HospitalIn the event this information is protected by the Federal Confidentiality of Alcohol and Drug Abuse Patient Records regulations: The Federal rules restrict any use of the information to criminally investigate or prosecute any alcohol or drug abuse patient.[facility] HospitalIn the event this information is protected by the Federal Confidentiality of Alcohol and Drug Abuse Patient Records regulations: The Federal rules restrict any use of the information to criminally investigate or prosecute any alcohol or drug abuse patient.[facility] HospitalIn the event this information is protected by the Federal Confidentiality of Alcohol and Drug Abuse Patient Records regulations: The Federal rules restrict any use of the information to criminally investigate or prosecute any alcohol or drug abuse patient.[facility] HospitalIn the event this information is protected by the Federal Confidentiality of Alcohol and Drug Abuse Patient Records regulations: The Federal rules restrict any use of the information to criminally investigate or prosecute any alcohol or drug abuse patient.[facility] HospitalIn the event this information is protected by the Federal Confidentiality of Alcohol and Drug Abuse Patient Records regulations: The Federal rules restrict any use of the information to criminally investigate or prosecute any alcohol or drug abuse patient.[facility] HospitalIn the event this information is protected by the Federal Confidentiality of Alcohol and Drug Abuse Patient Records regulations: The Federal rules restrict any use of the information to criminally investigate or prosecute any alcohol or drug abuse patient.[facility] HospitalIn the event this information is protected by the Federal Confidentiality of Alcohol and Drug Abuse Patient Records regulations: The Federal rules restrict any use of the information to criminally investigate or prosecute any alcohol or drug abuse patient.[facility] HospitalIn the event this information is protected by the Federal Confidentiality of Alcohol and Drug Abuse Patient Records regulations: The Federal rules restrict any use of the information to criminally investigate or prosecute any alcohol or drug abuse patient.[facility] HospitalIn the event this information is protected by the Federal Confidentiality of Alcohol and Drug Abuse Patient Records regulations: The Federal rules restrict any use of the information to criminally investigate or prosecute any alcohol or drug abuse patient.[facility] HospitalIn the event this information is protected by the Federal Confidentiality of Alcohol and Drug Abuse Patient Records regulations: The Federal rules restrict any use of the information to criminally investigate or prosecute any alcohol or drug abuse patient.[facility] HospitalIn the event this information is protected by the Federal Confidentiality of Alcohol and Drug Abuse Patient Records regulations: The Federal rules restrict any use of the information to criminally investigate or prosecute any alcohol or drug abuse patient.[facility] HospitalIn the event this information is protected by the Federal Confidentiality of Alcohol and Drug Abuse Patient Records regulations: The Federal rules restrict any use of the information to criminally investigate or prosecute any alcohol or drug abuse patient.[facility] HospitalIn the event this information is protected by the Federal Confidentiality of Alcohol and Drug Abuse Patient Records regulations: The Federal rules restrict any use of the information to criminally investigate or prosecute any alcohol or drug abuse patient.[facility] HospitalIn the event this information is protected by the Federal Confidentiality of Alcohol and Drug Abuse Patient Records regulations: The Federal rules restrict any use of the information to criminally investigate or prosecute any alcohol or drug abuse patient.[facility] HospitalIn the event this information is protected by the Federal Confidentiality of Alcohol and Drug Abuse Patient Records regulations: The Federal rules restrict any use of the information to criminally investigate or prosecute any alcohol or drug abuse patient.[facility] HospitalIn the event this information is protected by the Federal Confidentiality of Alcohol and Drug Abuse Patient Records regulations: The Federal rules restrict any use of the information to criminally investigate or prosecute any alcohol or drug abuse patient.[facility] HospitalIn the event this information is protected by the Federal Confidentiality of Alcohol and Drug Abuse Patient Records regulations: The Federal rules restrict any use of the information to criminally investigate or prosecute any alcohol or drug abuse patient.[facility] HospitalIn the event this information is protected by the Federal Confidentiality of Alcohol and Drug Abuse Patient Records regulations: The Federal rules restrict any use of the information to criminally investigate or prosecute any alcohol or drug abuse patient.[facility] HospitalIn the event this information is protected by the Federal Confidentiality of Alcohol and Drug Abuse Patient Records regulations: The Federal rules restrict any use of the information to criminally investigate or prosecute any alcohol or drug abuse patient.[facility] HospitalIn the event this information is protected by the Federal Confidentiality of Alcohol and Drug Abuse Patient Records regulations: The Federal rules restrict any use of the information to criminally investigate or prosecute any alcohol or drug abuse patient.[facility] HospitalIn the event this information is protected by the Federal Confidentiality of Alcohol and Drug Abuse Patient Records regulations: The Federal rules restrict any use of the information to criminally investigate or prosecute any alcohol or drug abuse patient.[facility] HospitalIn the event this information is protected by the Federal Confidentiality of Alcohol and Drug Abuse Patient Records regulations: The Federal rules restrict any use of the information to criminally investigate or prosecute any alcohol or drug abuse patient.[facility] HospitalIn the event this information is protected by the Federal Confidentiality of Alcohol and Drug Abuse Patient Records regulations: The Federal rules restrict any use of the information to criminally investigate or prosecute any alcohol or drug abuse patient.[facility] HospitalIn the event this information is protected by the Federal Confidentiality of Alcohol and Drug Abuse Patient Records regulations: The Federal rules restrict any use of the information to criminally investigate or prosecute any alcohol or drug abuse patient.[facility] HospitalIn the event this information is protected by the Federal Confidentiality of Alcohol and Drug Abuse Patient Records regulations: The Federal rules restrict any use of the information to criminally investigate or prosecute any alcohol or drug abuse patient.[facility] HospitalIn the event this information is protected by the Federal Confidentiality of Alcohol and Drug Abuse Patient Records regulations: The Federal rules restrict any use of the information to criminally investigate or prosecute any alcohol or drug abuse patient.[facility] HospitalIn the event this information is protected by the Federal Confidentiality of Alcohol and Drug Abuse Patient Records regulations: The Federal rules restrict any use of the information to criminally investigate or prosecute any alcohol or drug abuse patient.[facility] HospitalIn the event this information is protected by the Federal Confidentiality of Alcohol and Drug Abuse Patient Records regulations: The Federal rules restrict any use of the information to criminally investigate or prosecute any alcohol or drug abuse patient.[facility] HospitalIn the event this information is protected by the Federal Confidentiality of Alcohol and Drug Abuse Patient Records regulations: The Federal rules restrict any use of the information to criminally investigate or prosecute any alcohol or drug abuse patient.[facility] HospitalIn the event this information is protected by the Federal Confidentiality of Alcohol and Drug Abuse Patient Records regulations: The Federal rules restrict any use of the information to criminally investigate or prosecute any alcohol or drug abuse patient.[facility] HospitalIn the event this information is protected by the Federal Confidentiality of Alcohol and Drug Abuse Patient Records regulations: The Federal rules restrict any use of the information to criminally investigate or prosecute any alcohol or drug abuse patient.[facility] HospitalIn the event this information is protected by the Federal Confidentiality of Alcohol and Drug Abuse Patient Records regulations: The Federal rules restrict any use of the information to criminally investigate or prosecute any alcohol or drug abuse patient.[facility] HospitalIn the event this information is protected by the Federal Confidentiality of Alcohol and Drug Abuse Patient Records regulations: The Federal rules restrict any use of the information to criminally investigate or prosecute any alcohol or drug abuse patient.[facility] HospitalIn the event this information is protected by the Federal Confidentiality of Alcohol and Drug Abuse Patient Records regulations: The Federal rules restrict any use of the information to criminally investigate or prosecute any alcohol or drug abuse patient.[facility] HospitalIn the event this information is protected by the Federal Confidentiality of Alcohol and Drug Abuse Patient Records regulations: The Federal rules restrict any use of the information to criminally investigate or prosecute any alcohol or drug abuse patient.[facility] Reason for Visit (unrecogniz ed section [...] W/I&R FIBROSCAN Self Eloisa [address] [id number] Referral ID Status Reason Start Date Expiration Date Visits Re quested Visits Authorized [id number] Closed 09/26/2023 04/21/2024 1 1 Reason Comments Established Patient Autoimmune hepatitis Specialty Diagnoses / Procedures Referred By Contact Referred To Contact Gastroenterology / GASTROENTEROLOGY Diagnoses Autoimmune hepatitis autoimmune hepititis Procedures OFFICE/OUTPATIENT ESTABLISHED MOD MDM 30 MIN EST DDI PATIENT Self Francisco Sanchez MD [address] [place] [address] Referral ID Status Reason Start Date Expiration Date Visits Re quested Visits Authorized [id number] Closed 09/26/2023 04/21/2024 1 1 Reason Onset [...] NEW HIGH MDM 60 MINUTES Jean Sylvester APRN.GRINDER GEAR [address] [place] [address] Referral ID Status Reason Start Date Expiration Date V isits Requested Visits Authorized [id number] Closed PCP Requested Referral 03/09/2024 03/09/2025 1 [...] Care Teams (unrecognized sec tion and content) Cab Starter Relationship Specialty Start Date End Date Molly Kearns MD [address] [place], [place] [address] PCP - General Internal Medicine 03/06/10 Cab Starter Relationship Specialty Start Date End Date Molly Kearns MD [address] [place], [place] [id number] PCP - General Internal Medicine 03/06/10 Cab Starter Relationship Specialty Start Date End Date Molly Kearns MD [address] [place], [place] [address] PCP - General Internal Medicine 03/06/10 Cab Starter Relationship Specialty Start Date End Date Molly Kearns MD [address] [place] [address] PCP - General Internal Medicine 03/06/10 Team [...] Dr. Mao Yadav MD Other Provider Active Cab Starter Relationship Specialty Start Date End Date Molly Keanrs MD [address] [place], [place] [address]11 PCP - General Internal Medicine 03/06/10 Cab Starter Relationship Specialty Start Date End Date Molly Kearns MD [address] [place], [place] [id number] PCP - General Internal Medicine 03/06/10 Cab Starter Relationship Specialty Start Date End Date Molly Kearns MD [address] [place], [place] [address]141 PCP - General Internal Medicine 03/06/10 Cab Starter Relationship Specialty Start Date End Date Molly Kearns MD [address] [facility] [place], [place] [address] PCP - General Internal Medicine 03/06/10 Cab Starter Relationship Specialty Start Date End Date Molly Kearns MD [address] [place], [place] [address]21 PCP - General Internal Medicine 03/06/10 Cab Starter Relationship Specialty Start Date End Date Molly Kearns MD [address] [place], [place] [id number] PCP - General Internal Medicine 03/06/10 Team [...] Sarmiento DO Attending Provider, Referring Provider Active Cab Starter Relationship Specialty Start Date End Date Molly Kearns MD [address] [place], [place] [address]241 PCP - General Internal Medicine 03/06/10 Ebenezer Arias [address] [address] Referring Internal Medicine 05/07/23 Cab Starter Relationship Specialty Start Date End Date Molly Kearns MD [address] [place] [address] PCP - General Internal Medicine 03/06/10 Ebenezer Arias [address] [place], [place] [address] Referring Internal Medicine 05/07/23 Cab Starter Relationship Specialty Start Date End Date Molly Kearns MD [address] [facility] [place] [address] PCP - General Internal Medicine 03/06/10 Ebenezer Arias [address] [place] [address] Referring Internal Medicine 05/07/23 Cab Starter Relationship Specialty Start Date End Date Molly Kearns MD [address] [facility] [place] [address] PCP - General Internal Medicine 03/06/10 Ebenezer Arias [address] [place] [address] Referring Internal Medicine 05/07/23 Cab Starter Relationship Specialty Start Date End Date Molly Kearns MD [address] [facility] [place] [address] PCP - General Internal Medicine 03/06/10 Ebenezer Arias [address] [facility] [address] [place] [address] Referring Internal Medicine 05/07/23 Cab Starter Relationship Specialty Start Date End Date Molly Kearns MD [address] [facility] [place] [address] PCP - General Internal Medicine 03/06/10 Ebenezer Arias [address] [place] [address] Referring Internal Medicine 05/07/23 Cab Starter Relationship Specialty Start Date End Date Molly Kearns MD [address] [facility] [place] [address] PCP - General Internal Medicine 03/06/10 Ebenezer Arias [address] [place] [address] Referring Internal Medicine 05/07/23 Cab Starter Relationship Specialty Start Date End Date Molly Kearns MD [address] [facility] [place] [address] PCP - General Internal Medicine 03/06/10 Ebenezer Arias [address] [place] [address] Referring Internal Medicine 05/07/23 Cab Starter Relationship Specialty Start Date End Date Molly Kearns MD [address] [facility] [place] [address] PCP - General Internal Medicine 03/06/10 Ebenezer Arias [address] [place] [address] Referring Internal Medicine 05/07/23 Cab Starter Relationship Specialty Start Date End Date Molly Kearns MD [address] [facility] [place], [place] [address] PCP - General Internal Medicine 03/06/10 Ebenezer Arias [address] [place] [address] Referring Internal Medicine 05/07/23 Cab Starter Relationship Specialty Start Date End Date Molly Kearns MD [address] [facility] [place] [address] PCP - General Internal Medicine 03/06/10 Ebenezer Arias [address] [facility] [address] [place] [address] Referring Internal Medicine 05/07/23 Cab Starter Relationship Specialty Start Date End Date Molly Kearns MD [address] [facility] [place] [address] PCP - General Internal Medicine 03/06/10 Ebenezer Arias [address] [place] [address] Referring Internal Medicine 05/07/23 Cab Starter Relationship Specialty Start Date End Date Molly Kearns MD [address] [facility] [place] [address] PCP - General Internal Medicine 03/06/10 Ebenezer Arias [address] [facility] [address] [place] [address] Referring Internal Medicine 05/07/23 Cab Starter Relationship Specialty Start Date End Date Molly Kearns MD [address] [facility] [place] [address] PCP - General Internal Medicine 03/06/10 Ebenezer Arias [address] [facility] [address] [place] [address] Referring Internal Medicine 05/07/23 Bety Bajwa, CMM OPERATOR.ANTHROPOLOGY FACULTY MEMBER [address] [facility] [place] [address] Research Support Specialist Internal Medicine 03/30/24 Jean Sylvester APRN.GRINDER GEAR [address] [facility] [address] Research Support Specialist Internal Medicine 03/30/24 Cab Starter Relationship Specialty Start Date End Date Molly Kearns MD [address] [facility] [place] [address] PCP - General Internal Medicine 03/06/10 Ebenezer Arias [address] [place] [address] Referring Internal Medicine 05/07/23 Bety Bajwa, CMM OPERATOR.ANTHROPOLOGY FACULTY MEMBER [address] [facility] [place] [address] Research Support Specialist Internal Medicine 03/30/24 Jean Sylvester CMM OPERATOR.GRINDER GEAR [address] [facility] [place] [address] Formerly [facility] Internal Medicine 03/30/24 Cab Starter Relationship Specialty Start Date End Date Molly Kearns MD [address] [facility] [place] [address] PCP - General Internal Medicine 03/06/10 Ebenezer Arias [address] [facility] [address] [place] [address] Referring Internal Medicine 05/07/23 Bety Bajwa, CMM OPERATOR.ANTHROPOLOGY FACULTY MEMBER [address] [facility] [place] [address] Research Support Specialist Internal Medicine 03/30/24 Jean Sylvester APRN.GRINDER GEAR [address] [facility] [place] [address] Research Support Specialist Internal Medicine 03/30/24 07/10/24 Cab Starter Relationship Specialty Start Date End Date Molly Kearns MD [address] [facility] [place] [address] PCP - General Internal Medicine 03/06/10 Ebenezer Arias [address] [facility] [address] [place] [address] Referring Internal Medicine 05/07/23 Bety Bajwa APRN.ANTHROPOLOGY FACULTY MEMBER [address] [facility] [place] [address] Research Support Specialist Internal Medicine 03/30/24 Jean Sylvester APRN.GRINDER GEAR [address] [facility] [place] [address] Research Support Specialist Internal Medicine 07/14/24 Cab Starter Relationship Specialty Start Date End Date Molly Kearns MD [address] [facility] [place] [address] PCP - General Internal Medicine 03/06/10 Ebenezer Arias [address] [facility] [address] [place] [address] Referring Internal Medicine 05/07/23 Jean Sylvester APRN.GRINDER GEAR [address] [facility] [place] [address] Research Support Specialist Internal Medicine 07/14/24 Bety Bajwa APRN.ANTHROPOLOGY FACULTY MEMBER [address] [place] [address] Research Support Specialist Internal Medicine 09/09/24 Cab Starter Relationship Specialty Start Date End Date Molly Kearns MD [address] [place] [address] PCP - General Internal Medicine 03/06/10 Ebenezer Arias [address] [place] [address] Referring Internal Medicine 05/07/23 Jean Sylvester APRN.GRINDER GEAR [address] [place] [address] Research Support Specialist Internal Medicine 07/14/24 Bety Bajwa APRN.ANTHROPOLOGY FACULTY MEMBER [address] [place] [address] Research Support Specialist Internal Medicine 09/09/24 Cab Starter Relationship Specialty Start Date End Date Molly Kearns MD [address] [place] [address] PCP - General Internal Medicine 03/06/10 Ebenezer Arias [address] [facility] [address] [place] [address] Referring Internal Medicine 05/07/23 Jean Sylvester APRN.GRINDER GEAR [address] [place] [address] Research Support Specialist Internal Medicine 07/14/24 Bety Bajwa APRN.ANTHROPOLOGY FACULTY MEMBER [address] [place] [address] Research Support Specialist Internal Medicine 09/09/24 Cab Starter Relationship Specialty Start Date End Date Molly Kearns MD [address] [place] [address] PCP - General Internal Medicine 03/06/10 Ebenezer Arias [address], [place] [address] Referring Internal Medicine 05/07/23 Jean Sylvester APRN.GRINDER GEAR [address] [facility] [place] [address] Research Support Specialist Internal Medicine 07/14/24 Bety Bajwa APRN.ANTHROPOLOGY FACULTY MEMBER [address] [facility] [place] [address] Formerly [facility] Internal Medicine 09/09/24 Cab Starter Relationship Specialty Start Date End Date Molly Kearns MD [address] [facility] [place] [address] PCP - General Internal Medicine 03/06/10 Ebenezer Arias [address] [place] [address] Referring Internal Medicine 05/07/23 Jean Sylvester APRN.GRINDER GEAR [address] [facility] [place] [address] Formerly [facility] Internal Medicine 07/14/24 Bety Bajwa APRN.ANTHROPOLOGY FACULTY MEMBER [address] [facility] [place] [address] Formerly [facility] Internal Medicine 09/09/24 Goals (unrecognized section and content) Goals may be documented in a n alternate sectionGoals may be documented in an alternate section (unrecognized sect ion and content) No Status Records FoundNo Status Records Found INFORMATION SOURCE (unrecogn ized section and content) DATE CREATED AUTHOR 03/01/2024 [facility] DATE CREATED AUTHOR AUTHOR'S MARY GARCIA 02/24/2025 [facility] FOR RECORDS PERTAINING TO PATIENTS WHO [...] BE BASED ON THE PRIMARY CLINICAL RECORDS. [employer] [facility]. provides no warranty or guarantee of the accuracy or completeness of information in this document.
[2025-03-31] MEDS: Lactated Ringers 1,000 ML 15 ML IV (06:47)
--- NOTE | 2025-03-31 06:53 | PRE.ANES_ITS ---
ASA Classification* ASA Classification ASA Classification: 3 Assessment & Plan Anesthesia* Anesthesia Assessment Anesthesia Assessment: Discussed sedation and/or anesthesia options, risks, benefits, and alternatives with patient/parents/legal guardian/POA. Questions invited. The patient/parents/legal guardian/POA seems to understand and agrees to proceed with anesthesia plan. Reviewed the physical assessment, medical history, allergy history and patient home medications list prior to surgery/procedure/anesthetic and documented any changes. Performed airway and anesthesia risk assessments. Anesthesia Type Anesthesia Type: General History Source History Obtained from:: Patient and Chart Anesthesia Focused Assessment* Temperature: 97.8 F Pulse Rate: 90 Blood Pressure: 172/75 Respiratory Rate: 17 Pulse Ox: 93 Oxygen Delivery Method: Room Air Airway Assessment Mouth opens: >3 cm Mallampati Score: II Labs Anesthesia Preop lab: CBC WBC, (4.4-11.0) 10.5 K/mm3 10/22/22, 05:40 RBC, (4.6-6.2) 4.52 M/mm3 L 10/22/22, 05:40 Hgb, (13.0-16.5) 14.1 g/dL 10/22/22, 05:40 Hct, (40-54) 40.7 % 10/22/22, 05:40 Plt Count, (150-450) 182 K/mm3 10/22/22, 05:40 CHEMISTRY Potassium, (3.3-5.1) 4.1 mmol/L 03/24/25, 07:02 Sodium, (133-145) 140 mmol/L 03/24/25, 07:02 Magnesium, (1.6-2.6) 1.9 mg/dL 10/19/22, 05:40 Phosphorus, (2.5-4.9) 2.6 mg/dL 10/19/22, 05:40 BUN, (4-19) 17 mg/dL 03/24/25, 07:02 Creatinine, (0.70-1.20) 0.88 mg/dL 03/24/25, 07:02 Glucose, (70-99) 182 mg/dL H 03/24/25, 07:02 POC Glucose, (74-106) 253 mg/dL H 10/23/22, 06:25 COAG PT, (11.7-14.9) 15.9 SECONDS H 10/20/22, 20:35 Pre-Assessment Diagnosis/Proposed Procedure Planned Operative Procedure(s): ESWL Anesthesia History Anesthesia History - ear nose throat surgeon: Anesthesia History - ear nose throat surgeon Hx Hospitalization No 03/29/25 14:41 Any Problems With Anesthesia Yes: DIFFICULT TIME WAKING 03/29/25 14:41 POST MARINE, REQUIRED O2 Cholinesterase deficiency No 03/29/25 14:41 You/Your Family Experience No 03/29/25 14:41 fever (hyperthermia) with Relationship Recent Exposure to Contagious No 03/31/25 06:43 Disease Does patient have nerve No 03/29/25 14:41 stimulator Patient instructed to have device shut off --Does patient have Pacemaker No 03/31/25 06:43 or ICD? When Was Last Pacemaker Check QUESTION #4 FULL TEXT: You/Your Family Experience fever (hyperthermia) with Anesthesia Last Oral Intake Last Oral intake: Last Oral Intake NPO since 00:00 03/31/25 06:43 Meds taken in AM with sips of No 03/31/25 06:43 water? Meds patient instructed to take am of surgery PONV PONV - ear nose throat surgeon: PONV - ear nose throat surgeon Female No 03/29/25 14:41 HX of Motion Sickness No 03/29/25 14:41 HX of N/V After Surgery No 03/29/25 14:41 Non-Smoker Yes 03/29/25 14:41 Duration of Surgery greater Yes 03/29/25 14:41 than 60 minutes Number of Risk Factors 2 03/29/25 14:41 PONV Score Moderate Risk 03/29/25 14:41 Height & Weight Height & Weight: Anesthesia: Height & Weight Height 5 ft 10 in 03/31/25 06:43 Weight: 82.554 kg 03/31/25 06:43 Body Mass Index (BMI) 26.1 03/31/25 06:43 Respiratory Assessment Respiratory Assessment - ear nose throat surgeon: Respiratory Tract Infection Hx - ear nose throat surgeon Hx Respiratory Tract Infection No 03/29/25 14:41 STOP Sleep Apnea STOP Sleep Apnea - ear nose throat surgeon: STOP Sleep Apnea - ear nose throat surgeon Hx Hypertension Yes 03/29/25 14:41 Hx Sleep Apnea Yes 03/29/25 14:41 CPAP Yes 03/29/25 14:41 BIPAP No 03/29/25 14:41 Do you snore loudly (louder than talking or can be heard Do you often feel tired/ fatigued/ sleepy during daytime? Has anyone observed you stop breathing during sleep? STOP Results Positive 03/29/25 14:41 QUESTION #5 FULL TEXT : Do you snore loudly (louder than talking or can be heard through closed doors)? 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 Specify any problems Hx of Preganancy in last 3 N/A 03/29/25 14:41 Months Nurse Filling Out Transfusion MGRIFFITH 03/29/25 14:41 & Questions: Date: 03/29/25 03/29/25 14:41 Time: 14:45 03/29/25 14:41 Patient unable to answer at this time (ie. confused, unrespo /Reproduction History /Reproductive History - ear nose throat surgeon: /Reproductive Hx- ear nose throat surgeon Hx Now Gestational Age (in weeks): EDC: Hx Hx Para Hx Section SAB Does the father of the baby or his family experience fever w Father of the baby Malignant Hypertension history comment Active Medications Active Medications: Current Medications Generic Name Dose Route Start Last Admin Trade Name Freq PRN Reason Stop Dose Admin Cefazolin Sodium 2 gm/ Sodium 110 mls @ 200 mls/hr 03/31/25 07:00 Chloride IV 03/31/25 07:32 INTRAOP ONE Lactated Ringer's 1,000 mls @ 15 mls/hr 03/31/25 06:15 03/31/25 06:47 IV 15 mls/hr .Q48H VLADIMIR Administration PFSH Medical History Wears contact lenses Insulin dependent diabetes mellitus CPAP (continuous positive airway pressure) dependence Non-smoker Obstructive sleep apnea Acute gallstone pancreatitis High cholesterol Hypertension Diabetes Home Medications ?Medication ?Instructions ?Recorded ?Last Taken ?Type benazepril 10 0.5 tab PO DAILY PRN ELEVATE D BP 06/07/20 03/30/25 History mg-hydrochlorothiazide 12.5 mg tablet fluticasone propionate 50 1 spray NASAL DAILY CONGESTI ON 06/07/20 03/30/25 History mcg/actuation nasal spray,suspension gemfibrozil 600 mg tablet 600 mg PO BIDAC TRIGLYCERIDE S 06/07/20 03/30/25 History loratadine 10 mg tablet 10 mg PO DAILY ALLERGIES 03/30/25 History multivitamin 1 ea PO DAILY 06/07/2003/30 History omega 9-nvc-rxq-fish oil 1,200 mg 1 cap PO BID general health 10/18/22 03/30/25 History (144 mg-216 mg) capsule (Fish Oil) flash glucose scanning reader 03/18/23 Unknown Histor y (WhenU.comStyle Neil 14 Day [place]) insulin lispro 100 unit/mL 4 unit subcut TID PRN SLIDI NG SCALE 03/18/23 03/30/25 History subcutaneous pen (Humalog KwikPen (U-100) Insulin) potassium citrate 15 mEq (1,620 15 meq PO BID 03/18/23 03/30/25 History mg) tablet,extended release nutritional supplement-fiber oral 1 ea PO DAILY 03/30/25 History ciprofloxacin HCl 500 mg tablet 500 mg PO BID 03/31/25 03/30/25 History oxycodone 5 mg tablet PO 03/31/25 03/30/25 History phenazopyridine 100 mg tablet 100 mg PO TID 03/31/25 1 05/31/24 History (Pyridium) tamsulosin 0.4 mg capsule PO 03/31/25 03/30/25 History Allergy/AdvReac Type Severity Reaction Status Date / Time clemastine (From Tavist) Allergy Rash Verified 03/31/25 06:33 pseudoephedrine (From Tavist) Allergy Rash Verified 03/31/25 06:33 Family History Father Diabetes Heart disease Grandmother No problems noted. Grandfather Heart disease Mother Hypertension Kidney disease Sister Iron deficiency Surgical History History of ureteroscopy History of extracorporeal shockwave lithotripsy (ESWL) History of cholecystectomy Social History Smoking Status: Never smoker alcohol intake: never substance use type: does not use what type of physical activity do you participate in: walking frequency: 3-4 times per week Addt'l Information Additional Findings: NSR. on EKG Review of Systems (Anesthesia) ROS Narrative System reviewed and no additional complaints, except as documented. Physical Exam Const alert, oriented x3 and average body habitus Orientation / Consciousness: awake HEENT dentition normal Neck General: normal visual inspection and trachea midline Resp normal respiratory effort and normal air movement Cardio regular rate and regular rhythm Neuro oriented x3 and moves all extremities
[2025-03-31] MEDS: fentaNYL 100 MCG/2 ML Ampul IV (08:19)
[2025-03-31] MEDS: Lidocaine 1% (5 ml sdv) 5 ML Vial IV (08:19)
[2025-03-31] MEDS: Cefazolin 1 GM/5 ML Vial 2 GM IV (08:24)
--- NOTE | 2025-03-31 08:30 | PCM.DC ---
Discharge Instructions DC O2, CPAP, BIPAP needs Home O2 Discharge instructions: No Dressing / Incision Discharge Activity: Return to Normal Activity and May Not Drive (while taking narcotic pain medications.) Dressing / Incision Call your doctor if you observe: Fever of 101 or Higher Follow Up Care Please Follow Up With: Walt Robins MD When: Call [phone] for an appointment Test Results: Test results from this visit will be discussed in further detail at your follow-up appointment, if applicable. Discharge Plan Admission Primary Reason for Your Visit: ESWL Attending Provider: Walt Robins Primary Care Provider: Nu Ortiz Instructions Print Language: Kinyarwanda Discharge Orders/Prescriptions Prescriptions: New oxycodone 5 mg tablet 5 mg PO Q6H PRN (Reason: pain) 7 Days Qty: 14 0RF Continued insulin lispro [Humalog KwikPen Insulin] 100 unit/mL insulin pen 4 unit subcut TID PRN (Reason: SLIDING SCALE) (DME) FreeStyle Neil [address] Misc See Rx Instructions .Route Rx Instructions: As directed potassium citrate 15 mEq tablet extended release 15 meq PO BID nutritional supplement-fiber Misc 1 ea PO DAILY multivitamin 1 EACH tablet 1 ea PO DAILY gemfibrozil 600 MG tablet 600 mg PO BIDAC fluticasone propionate 1 SPRAY spray,suspension 1 spray NASAL DAILY loratadine 10 MG tablet 10 mg PO DAILY benazepril-hydrochlorothiazide 1 EACH tablet 0.5 tab PO DAILY PRN (Reason: ELEVATED BP) omega 9-hcb-bgr-fish oil [Fish Oil] 1,200 (144-216) mg capsule 1 cap PO BID tamsulosin 0.4 mg capsule PO oxycodone 5 mg tablet PO ciprofloxacin HCl 500 mg tablet 500 mg PO BID phenazopyridine [Pyridium] 100 mg tablet 100 mg PO TID Referrals / Follow Up: Walt Robins MD [Med Staff - Active Staff, Urology] Nu Ortiz MD [Primary Care Provider, Internal Medicine] Disposition Disposition (needs filled in before D/C Order can be placed): Home, Self Care
--- NOTE | 2025-03-31 08:56 | OP.PCM_ITS ---
Operative Report (Standard) Operative Information Date of Procedure: 03/31/25 Pre-Operative Diagnosis: Right kidney stone Post-Operative Diagnosis: same Surgery/Procedure Performed: Cystoscopy and right stent removal and right ESWL video library assistant: No Type of Anesthesia: General RN Documented Start/Stop Times: Operation Date: 03/31/25 08:00 Case Time Into Pre-Op 03/31/25 06:11 Out of Pre-Op 03/31/25 08:10 Procedure Start Time: 08:27 Procedure Stop Time: 09:25 Select all DRAINS/GRAFTS/IMPLANTS that apply: None Estimated Blood Loss: none Specimen collected: No Description of surgery: Patient presents to the hospital for treatment of a kidney stone with shockwave lithotripsy. In the preoperative area and x-ray was done to confirm the location of the stone. The x-ray was reviewed and the stone location was reviewed. In the preoperative setting I spoke with the patient regarding the treatment of the stone how the treatment would be conducted and the expectations after surgery. The patient understands there is a risk of bleeding and infection. Also discussed the very rare risk of hematoma or damage to the kidney. We also discussed the risk that the shockwave machine will fail to break the stone adequately and that the patient may need other surgical procedures. I also discussed the possibility that the patient may need a stent after the procedure. After reviewing the procedure with the patient, the patient is signed the consent form all the patient's questions were addressed and was taken back to the operating room for treatment of a kidney stone. Patient was taken back to the operating room, the patient was identified by the nursing staff, I identified the side of the treatment and the patient side of treatment had been marked by my initials. The patient underwent general anesthetic and was placed supine on the lithotripter table. I then used fluoroscopy to identify the stone on the right side next stent. I then positioned the patient under the lithotripter and I used triangulation technique to identify the location of the stone and then I made sure that the stone was engaged in the F2 focal point of F2 Donier lithoprior machine. Once the patient was positioned appropriately and the stone was identified and placed in the F2 focal point of the lithotripter machine I then proceeded with shockwave lithotripsy. In the beginning the shockwave was delivered at a rate of 90 shocks per minute, anesthesia monitored the EKG for any ectopy. The power was slowly increased to 5 kV and subsequently at the 7 kV. I then proceeded with the treatment with shock wave therapy and around during the treatment to make sure the stone stayed in the F2 focal point during the entire treatment and afte r 3000 shockwaves were delivered to the stone under fluoroscopic guidance the treatment was completed. At completion of treatment stent removed with a cystoscope via the urethra. The patient was given instructions to call the office to make an a follow-up appointment with an x-ray to evaluate the success of the treatment, patient understands that its possible the stones may need another procedure. At this point the patient's anesthetic was reversed patient was extubated and taken back to the PACU in stable condition. Surgical Findings: stent removed and stone broke up. Complications Complications: No Admit VTE Documentation VTE Present on Admission: No VTE Mechan Device Prophylaxis: SCD's VTE Pharm Prophylaxis ordered?: No
--- NOTE | 2025-03-31 09:29 | PCM.POST.ANE ---
Anesthesia: Postop Eval I Current Vital Signs Temperature: 98.7 F Pulse Rate: 82 Blood Pressure: 170/83 Respiratory Rate: 16 Pulse Ox: 96 Oxygen Delivery Method: Room Air Assessment Airway patent: Yes Spontaneous unlabored respirations: Yes Mental status: Awake and Calm nausea: No Vomiting: No Anesthesia Complication: No Fluid Hydration Crystalloid volume administer (ml): 400 Total IV fluid infused: 400 Progress Note Anesthesia document: Postop Eval 1 completed: Yes
--- NOTE | 2025-03-31 09:49 | POSTOPAN2_ITS ---
Anesthesia Postop Eval I Sum Postop Eval Completion status Anesthesia document: Postop Eval 1 completed: Yes Anesthesia Postop Eval I Summary Anesthesia Postop Eval I Summary: Anesthesia Postop Eval I: Assessment Summary Airway patent Yes 03/31/25 09:30 MOBILE ELECTRONICS INSTALLER.[email or web address] Spontaneous unlabored Yes 03/31/25 09:30 MOBILE ELECTRONICS INSTALLER.[email or web address] respirations Mental status Awake,Calm 03/31/25 09:30 MOBILE ELECTRONICS INSTALLER.[email or web address] nausea No 03/31/25 09:30 MOBILE ELECTRONICS INSTALLER.[email or web address] Vomiting No 03/31/25 09:30 MOBILE ELECTRONICS INSTALLER.[email or web address] Anesthesia Postop Eval I: Fluid Summary Crystalloid volume administer 400 03/31/25 09:30 MOBILE ELECTRONICS INSTALLER.GDOTT (ml) Colloids volume administered ( ml) Blood Product volume administered (ml) Total IV fluid infused 400 03/31/25 09:30 MOBILE ELECTRONICS INSTALLER.GDOTT Anesthesia Postop Eval I: Summary Notes Anesthesia Complication No 03/31/25 09:30 MOBILE ELECTRONICS INSTALLER.[email or web address] Anesthesia Complication Comment: Post-operative progress note Anesthesia: Postop Eval II Evaluation Mental status: Awake and Calm Pain Level: 1 nausea: No Vomiting: No Complications Anesthesia Complication: No
--- NOTE | 2025-03-31 09:49 | PCM.POSTANE2 ---
Anesthesia Postop Eval I Sum Postop Eval Completion status Anesthesia document: Postop Eval 1 completed: Yes Anesthesia Postop Eval I Summary Anesthesia Postop Eval I Summary: Anesthesia Postop Eval I: Assessment Summary Airway patent Yes 03/31/25 09:30 OVERHEAD [email or web address].[email or web address] Spontaneous unlabored Yes 03/31/25 09:30 OVERHEAD [email or web address].[email or web address] respirations Mental status Awake,Calm 03/31/25 09:30 OVERHEAD [email or web address].GDOTT nausea No 03/31/25 09:30 OVERHEAD CLEANER.GDOTT Vomiting No 03/31/25 09:30 OVERHEAD [email or web address].[email or web address] Anesthesia Postop Eval I: Fluid Summary Crystalloid volume administer 400 03/31/25 09:30 OVERHEAD [email or web address].GDOTT (ml) Colloids volume administered ( ml) Blood Product volume administered (ml) Total IV fluid infused 400 03/31/25 09:30 OVERHEAD [email or web address].GDOTT Anesthesia Postop Eval I: Summary Notes Anesthesia Complication No 03/31/25 09:30 OVERHEAD CLEANER.GDOTT Anesthesia Complication Comment: Post-operative progress note Anesthesia: Postop Eval II Evaluation Mental status: Awake and Calm Pain Level: 1 nausea: No Vomiting: No Complications Anesthesia Complication: No
== END 2025-03-31 12:21 | disposition home or self-care (01) ==
LOC: SDC 05:56 → AC 05:59
PROVIDERS: PCP Internal Medicine; Referring Provider Urology; Visit Provider Urology
PROC: (CPT 50590; principal; 2025-03-31 07:50)
DX: N20.0 Calculus of kidney (principal); E11.9 Type 2 diabetes mellitus without complications; Z79.4 Long term (current) use of insulin; E78.00 Pure hypercholesterolemia, unspecified; I10 Essential (primary) hypertension; Z79.899 Other long term (current) drug therapy; Z87.442 Personal history of urinary calculi
CPT/HCPCS: 50590; 52310; 00873; 74018; 82962; J2405